=== PATIENT | female | born 1955 | race Caucasian/White ===

== ENCOUNTER → 2017-11-07 06:33 | Outpatient (CLI) | payer OTHER, SELFPAY ==
[2017-11-07 08:21] LABS: Absolute Lymphocyte Count 1.36 X10^3/ul (0.83-4.51); Absolute Neutrophil Count 3.3 X10^3/uL (2.0-7.7); Basophil# 0.04 X10^3/uL; Basophil% 0.8 % (0-1); Eosinophil# 0.17 X10^3/uL; Eosinophils% 3.2 % (0-5); Hematocrit 43.6 % (37-47); Hemoglobin 13.8 g/dl (12.0-15.0); Lymphocyte # 1.36 X10^3/ul (4.0); Lymphocyte % 25.9 % (19-41); Mean Corp Hgb Conc 31.7 g/gl (32-36); Mean Corpuscular Hgb 29.4 pg (27.0-32.0); Mean Corpuscular Volume 92.8 fL (81-99); Mean Platelet Vol. 11.8 fl (6.2-12.0); Monocyte% 7.6 % (0-10); Neutrophil # 3.27 X10^3/uL (2.7-7.7); Neutrophil % 62.3 % (47-70); Platelet Count 183 K/mm3 (150-450); RBC Distribution Width CV 13.3 % (11.6-14.6); RBC Distribution Width SD 45.3 fl (35.1-43.9); White Blood Count 5.3 K/mm3 (4.4-11.0)
[2017-11-07 08:25] LABS: POSITIVE COUNT NO; POSITIVE DIFFERENTIAL NO; POSITIVE MORPHOLOGY NO
[2017-11-07 08:56] LABS: ALB/GLOB Ratio 0.9 RATIO (0.9-2.4); AST(SGOT) 25 U/L (15-37); Alanine Aminotransfer ALT/SGPT 49 U/L (13-56); Albumin, Serum 3.3 g/dL (3.2-5.0); Alkaline Phosphatase 67 U/L (45-117); Anion Gap 10 (5-15); BUN 23 mg/dL (7-18); BUN/Creat Ratio 33.6 RATIO (10-20); Calcium,Total 8.6 mg/dL (8.5-10.1); Chloride 106 mmol/L (98-107); Creatinine, Serum 0.68 mg/dL (0.55-1.02); EST Glomerular Filtration Rate 93 mL/min (>60); Est Glom Filt Rate - Afr Amer 113 mL/min (>60); Globulin 3.5 g/dL (2.2-4.2); Glucose 100 mg/dL (70-110); Potassium 4.1 mmol/L (3.5-5.1); Protein, Total 6.8 g/dL (6.4-8.2); Sodium Level 142 mmol/L (136-145)
[2017-11-07 08:59] LABS: Vitamin D,25 Hydroxy 15.1 ng/mL (19.95-100.01)
== END ==
PROVIDERS: Nurse Practitioner Family; Family Provider Family Medicine; PCP Family Medicine; Visit Provider Internal Medicine Medical Oncology
DX: E55.9 Vitamin D deficiency, unspecified (principal)
CPT/HCPCS: 36415; 80053; 82306; 85025

== ENCOUNTER → 2018-03-23 15:42 | Outpatient (CLI) | payer OTHER, SELFPAY ==
[2018-03-23 16:22] LABS: Absolute Lymphocyte Count 1.15 X10^3/ul (0.83-4.51); Absolute Neutrophil Count 7.5 X10^3/uL (2.0-7.7); Basophil# 0.04 X10^3/uL; Basophil% 0.4 % (0-1); Eosinophil# 0.05 X10^3/uL; Eosinophils% 0.5 % (0-5); Hematocrit 43.8 % (37-47); Hemoglobin 14.3 g/dl (12.0-15.0); Lymphocyte # 1.15 X10^3/ul (4.0); Lymphocyte % 12.4 % (19-41); Mean Corp Hgb Conc 32.6 g/gl (32-36); Mean Corpuscular Hgb 30.3 pg (27.0-32.0); Mean Corpuscular Volume 92.8 fL (81-99); Mean Platelet Vol. 11.8 fl (6.2-12.0); Monocyte# 0.58 X10^3/uL; Monocyte% 6.2 % (0-10); Neutrophil # 7.46 X10^3/uL (2.7-7.7); Neutrophil % 80.2 % (47-70); Platelet Count 225 K/mm3 (150-450); RBC Distribution Width CV 13.9 % (11.6-14.6); RBC Distribution Width SD 46.1 fl (35.1-43.9); Red Blood Count 4.72 M/mm3 (4.2-5.4); White Blood Count 9.3 K/mm3 (4.4-11.0)
[2018-03-23 16:23] LABS: POSITIVE COUNT NO; POSITIVE DIFFERENTIAL NO; POSITIVE MORPHOLOGY NO
[2018-03-27 03:08] LABS: Alternaria alternata <0.10 kU/L (Class 0); Bermuda Grass <0.10 kU/L (Class 0); Bluegrass, Kentucky <0.10 kU/L (Class 0); Cat Hair/Dander, Standard <0.10 kU/L (Class 0); D farinae Mite <0.10 kU/L (Class 0); D pteronyssinus <0.10 kU/L (Class 0); Dog Epithelia <0.10 kU/L (Class 0); Elm, American White <0.10 kU/L (Class 0); Oak, White <0.10 kU/L (Class 0); Plantain, English <0.10 kU/L (Class 0); Ragweed, Short/Common <0.10 kU/L (Class 0)
[2018-03-27 11:18] LABS: Mouse Urine <0.10 kU/L (Class 0)
== END ==
PROVIDERS: Family Provider Family Medicine; PCP Family Medicine; Visit Provider Nurse Practitioner Acute Care
DX: R05 Cough (principal)
CPT/HCPCS: 36415; 85025; 86003

== ENCOUNTER → 2018-04-27 15:15 | Outpatient (CLI) | payer OTHER, SELFPAY ==
--- NOTE | 2018-04-27 15:19 | US_ITS ---
STUDY: ULTRASOUND OF THE FEMALE PELVIS - COMPLETE REASON FOR EXAM: Female, 62 years old. Postmenopausal bleed TECHNIQUE: Transvaginal TECHNICAL QUALITY: Adequate. COMPARISON: None. FINDINGS: The uterus is anteverted and is in a midline position. The uterus measures 7.8 x 4.9 x 4.1 cm. Normal uterine cervix. The endometrium measures 4 mm in thickness, and is hyperechoic. There is no demonstrated endometrial mass. There is no demonstrated myometrial mass. The right ovary is visualized. The right ovary measures 2.4 x 1.5 x 1.4 cm. There is no right ovarian cyst or ovarian mass. There is no visualized right adnexal mass or complex lesion. There is normal arterial and normal venous vascularity. The left ovary is visualized. The left ovary measures 2.5 x 1.7 x 1.6 cm. There is no left ovarian cyst or ovarian mass. There is no visualized left adnexal mass or complex lesion. There is normal arterial and normal venous vascularity. There is no fluid in the cul-de-sac. US/Transvaginal Non- IMPRESSION: Normal female pelvis. Electronically Signed: Darrel Resendez, at 20:34 EDT Tel , Service support ,
== END ==
PROVIDERS: Family Provider Family Medicine; PCP Family Medicine
DX: N95.0 Postmenopausal bleeding (principal)
CPT/HCPCS: 76830

== ENCOUNTER → 2018-05-11 15:24 | Outpatient (CLI) | payer OTHER, SELFPAY ==
[2018-05-11 16:46] LABS: Absolute Neutrophil Count 4.4 X10^3/uL (2.0-7.7); Basophil# 0.02 X10^3/uL; Basophil% 0.3 % (0-1); Eosinophil# 0.19 X10^3/uL; Eosinophils% 2.8 % (0-5); Hematocrit 44.3 % (37-47); Hemoglobin 14.1 g/dl (12.0-15.0); Lymphocyte % 22.2 % (19-41); Mean Corp Hgb Conc 31.8 g/gl (32-36); Mean Corpuscular Hgb 29.7 pg (27.0-32.0); Mean Corpuscular Volume 93.5 fL (81-99); Mean Platelet Vol. 12.1 fl (6.2-12.0); Monocyte# 0.65 X10^3/uL; Monocyte% 9.6 % (0-10); Neutrophil # 4.41 X10^3/uL (2.7-7.7); Neutrophil % 65.1 % (47-70); Platelet Count 185 K/mm3 (150-450); RBC Distribution Width CV 13.5 % (11.6-14.6); RBC Distribution Width SD 46.1 fl (35.1-43.9); Red Blood Count 4.74 M/mm3 (4.2-5.4); White Blood Count 6.8 K/mm3 (4.4-11.0)
[2018-05-11 16:47] LABS: POSITIVE COUNT NO; POSITIVE DIFFERENTIAL NO; POSITIVE MORPHOLOGY NO
[2018-05-11 16:59] LABS: ALB/GLOB Ratio 1.1 RATIO (0.9-2.4); AST(SGOT) 38 U/L (15-37); Alanine Aminotransfer ALT/SGPT 56 U/L (13-56); Albumin, Serum 3.6 g/dL (3.2-5.0); Alkaline Phosphatase 81 U/L (45-117); Anion Gap 8 (5-15); BUN 22 mg/dL (7-18); BUN/Creat Ratio 29.8 RATIO (10-20); Chloride 106 mmol/L (98-107); Creatinine, Serum 0.74 mg/dL (0.55-1.02); EST Glomerular Filtration Rate 85 mL/min (>60); Est Glom Filt Rate - Afr Amer 103 mL/min (>60); Globulin 3.4 g/dL (2.2-4.2); Glucose 109 mg/dL (74-106); Potassium 4.1 mmol/L (3.5-5.1); Sodium Level 144 mmol/L (136-145)
== END ==
PROVIDERS: Family Provider Family Medicine; PCP Family Medicine; Visit Provider Internal Medicine Medical Oncology
DX: D05.12 Intraductal carcinoma in situ of left breast (principal)
CPT/HCPCS: 80053; 85025

== ENCOUNTER → 2018-07-06 15:10 | Outpatient (CLI) | payer OTHER, SELFPAY ==
--- NOTE | 2018-07-06 15:15 | BI_ITS ---
MAMMOGRAPHY - BILATERAL SCREENING REASON FOR EXAM: Female, 62 years old. Routine annual screening examination. PERTINENT HISTORY: Personal history of breast cancer. Status post left lumpectomy with radiation treatment. Grandmother with breast cancer. Aunt with breast cancer. TECHNIQUE: Digital bilateral breast jose (3D mammographic acquisition) in the CC and MLO projections. 2-D mediolateral oblique (MLO) and craniocaudad (CC) views of both breasts were obtained. CAD: Full Field Digital Mammography with Computer Added Detection was performed. COMPARISON: Comparison is made with prior study dated July 03, 2017 and January 15, 2017. FINDINGS: Breast Composition: The breasts are heterogeneously dense, which may obscure small masses. There are no dominant masses or suspicious calcifications. Stable well-defined subcentimeter nodular densities in the retroareolar region of the right breast. Stable benign-appearing bilateral axillary lymph nodes. The patient status post left lumpectomy with resultant architectural distortion. No other significant abnormalities are identified. There has been no significant change since the prior study. BI/SCREENING MAMM (CAD), BILAT IMPRESSION: Stable bilateral screening mammogram. Yearly follow-up mammogram recommended. (A) ASSESSMENT CATEGORY: BIRADS Category 2: Benign. A letter regarding these results will be sent to the patient by the facility within 30 days. Approximately 10% of breast cancers are not detected by mammography. A normal mammogram should not delay biopsy of a clinically suspicious abnormality. [id number] Electronically Signed: Douglas Hauser MD at 8:15 EDT Tel [phone], Service support ,
== END ==
PROVIDERS: Family Provider Family Medicine; PCP Family Medicine; Visit Provider Nurse Practitioner Family
DX: Z12.31 Encounter for screening mammogram for malignant neoplasm of breast (principal)
CPT/HCPCS: 77063; 77067

== ENCOUNTER → 2018-07-21 13:40 | Outpatient (CLI) | payer OTHER, SELFPAY ==
--- NOTE | 2018-07-21 16:42 | PFTCOMP_ITS ---
COMPLETE PULMONARY FUNCTION TEST INTERPRETATION Brief HPI: Patient is a 62 year old female, currently under the care of Dr. Ayala, who presents to [facility] for complete pulmonary function tests secondary to diagnosis of dyspnea. Respiratory therapist reports good effort and reproducible results. Interpretation: Forced expiration spirometry shows no large airways obstructive ventilatory defect with an FEV1 of 112% predicted. There is no significant bronchodilator response by ATS criteria. Spirograms are of good quality and plateau normally. The respiratory flow volume loop shows a normal pattern. Lung volumes by body plethysmography show a normal total lung capacity at 4.55 L, 106% predicted. All other lung volumes are within normal limits. Diffusion capacity by carbon monoxide is decreased at 63% predicted. The airway resistance is normal. Compared to previous pulmonary function tests from 07/01/2017, there has been a significant change in DLCO and lung volumes. Impression: Isolated reduction in diffusion capacity consistent with a pulmonary vascular disease. There has been improvement in DLCO compared to previous testing.
== END ==
PROVIDERS: Family Provider Family Medicine; PCP Family Medicine; Referring Provider Internal Medicine Critical Care Medicine; Visit Provider Internal Medicine Critical Care Medicine
DX: R05 Cough (principal); R06.02 Shortness of breath; R06.2 Wheezing
CPT/HCPCS: 94060; 94726; 94729

== ENCOUNTER → 2018-08-31 15:51 | Outpatient (CLI) | payer OTHER, SELFPAY ==
[2018-08-20 14:46] VITALS: BMI 40.6
--- NOTE | 2018-08-31 15:54 | US_ITS ---
HISTORY: PMBPost-Menopausal BleedingUS - Pelvic, Tvag TECHNIQUE: Transabdominal and transvaginal pelvic ultrasound was performed. COMPARISON: None FINDINGS: The uterus is anteverted and appears normal in overall size measuring approximately 7.6 x 4.1 x 5 cm in longitudinal, AP, and transverse dimensions, respectively. The uterine myometrium shows mildly heterogenous echotexture with suspicion of several small hypoechoic fibroids, the largest measuring 1.7. The endometrium is uniform and measures 0.4 cm in diameter which is normal. The right ovary measures approximately 2.1 x 1.9 x 1.1 cm and the left ovary measures 3.3 x 2 x 1.7 cm. Bilateral ovarian vascular flow. No adnexal mass or free pelvic fluid. US/Pelvic (Non ) IMPRESSION: 1. Fibroid uterus which is normal in overall size. 2. Normal endometrium. 3. No free fluid or acute disease identified. at 0752 Reported and signed by: Edvin Huff MD Electronically Signed: Edvin Huff, at 7:49 EST Tel , Service support ,
--- NOTE | 2018-08-31 16:22 | US_ITS ---
HISTORY: PMBPost-Menopausal BleedingUS - Pelvic, Tvag TECHNIQUE: Transabdominal and transvaginal pelvic ultrasound was performed. COMPARISON: None FINDINGS: The uterus is anteverted and appears normal in overall size measuring approximately 7.6 x 4.1 x 5 cm in longitudinal, AP, and transverse dimensions, respectively. The uterine myometrium shows mildly heterogenous echotexture with suspicion of several small hypoechoic fibroids, the largest measuring 1.7. The endometrium is uniform and measures 0.4 cm in diameter which is normal. The right ovary measures approximately 2.1 x 1.9 x 1.1 cm and the left ovary measures 3.3 x 2 x 1.7 cm. Bilateral ovarian vascular flow. No adnexal mass or free pelvic fluid. US/Transvaginal Non- IMPRESSION: 1. Fibroid uterus which is normal in overall size. 2. Normal endometrium. 3. No free fluid or acute disease identified. at 0752 Reported and signed by: Edvin Huff MD Electronically Signed: Edvin Huff, at 7:49 EST Tel , Service support ,
--- OUTSIDE RECORDS SUMMARY | 2018-10-13 14:27 | XMS RPT_ITS ---
:1955 Author Organization [place] Support Name Relationship Address Phone LUKE GARCIA Unavailable [address] + [place] [address] WAY[place] Unavailable [address] + [place] [address] LUKE GARCIA Unavailable [address] + [place] [address] WAY[place] Unavailable [address] + [place] [address] LUKE GARCIA Unavailable [phone] [place] [address] WAY[place] Unavailable [address] + [place] [address] LUKE GARCIA Unavailable [phone] [place] [address] WAY[place] Unavailable [address] + [place] [address] LUKE GARCIA Unavailable [phone] [place] [address] WAYC[place] Unavailable [address] + [place] [address] LUKE GARCIA Unavailable [phone] [place] [address] WAYC[place] Unavailable [address] + [place] [address] LUKE GARCIA Unavailable [phone] [place] [address] WAYC[place] Unavailable [address] + [place] [address] LUKE GARCIA Unavailable [phone] [place] [address] WAY[place] Unavailable [address] + [place] [address] LUKE GARCIA Unavailable [address] + [place] [address] WAYC[place] Unavailable [address] + [place] [address] LUKE GARCIA Unavailable [address] + [place] [address] WAY[place] Unavailable [address] + [place] [address] LUKE GARCIA Unavailable [address] + [place] [address] WAY[place] Unavailable [address] + [place] [address] LUKE GARCIA Unavailable [address] + [place] [address] WAY[place] Unavailable [address] + [place] [address] Luke Garcia Unavailable [address] + [place] [address] WAY[place] Unavailable [address] + [place] [address] Luke Garcia Unavailable [address] + [place] [address] WAYC[place] Unavailable [address] + [place] [address] LUKE GARCIA Unavailable [address] + [place] [address] WAYC[place] Unavailable [address] + [place] [address] Luke Garcia Unavailable [address] + [place] [address] WAYC[place] Unavailable [address] + [place] [address] Luke Garcia Unavailable [address] + [place] [address] WAYC[place] Unavailable [address] + [place] [address] Luke Garcia Unavailable [address] + [place] [address] WAY[place] Unavailable [address] + [place] [address] LUKE GARCIA Unavailable [address] + [place] [address] WAY[place] Unavailable [address] + [place] [address] LUKE GARCIA Unavailable [address] + [place] [address] WAYCOSHE Unavailable [address] + [place] [address] Care Team Providers Name Role Phone LINDA BOOKER, GINA Attending Unavailable GINA MCKEON MD Primary Care Unavailable Prah, Brando Attending Unavailable Hollis, Mike Primary Care Unavailable Hollis, Mike Referring Unavailable Prah, Brando Attending Unavailable Hollis, Mike Primary Care Unavailable Prah, Brando Referring Unavailable Hollis, Mike Consulting Unavailable Prah, Brando Attending Unavailable Prah, Brando Referring Unavailable Hlolis, Mike Primary Care Unavailable Prah, Brando Consulting [facility] Attending Unavailable Darrel Mclaughlin Attending Unavailable Hollis, Mike Referring Unavailable Hollis, Mike Primary Care Unavailable Claudio Cantor Attending Unavailable Hollis, Mike Referring Unavailable Hollis, Mike Primary Care Unavailable Gail Brannon Attending Unavailable Beverly Emerson Attending Unavailable Hollis, Mike Referring Unavailable Beverly Emerson Attending Unavailable Emerson, Beverly Referring Unavailable Hollis, Mike Primary Care Unavailable Darrel Mclaughlin Attending Unavailable Hollis, Mike Referring Unavailable Hollis, Mike Primary Care Unavailable Beverly Emerson Attending Unavailable Hollis, Mike Referring Unavailable Hollis, Mike Primary Care Unavailable FANTASMA PALACIOS Attending Unavailable FANTASMA PALACIOS Referring Unavailable Hollis, Mike Primary Care Unavailable FANTASMA PALACIOS Consulting Unavailable Ines, Brando Attending Unavailable Sherrieh, Brando Referring Unavailable Hollis, Mike Primary Care Unavailable Johan Kima Attending Unavailable Hollis, Mike Referring Unavailable Hollis, Mike Primary Care Unavailable Prah, Brando Consulting Unavailable Hollis, Mike Primary Care Unavailable Judy Daysi Attending Unavailable Shaheed Ayala D.O. Attending Unavailable Shaheed Ayala D.O. Referring Unavailable Hollis, Mike Primary Care Unavailable Nicko Castellanos Consulting Unavailable Nicko Castellanos Attending Unavailable Hollis, Mike Referring Unavailable Nicko Castellanos Attending Unavailable Ki Beverly Referring Unavailable Darrel Mclaughlin Attending Unavailable Hollis, Mike Referring Unavailable Gina Mckeon Attending Unavailable Hollis, Mike Primary Care Unavailable FANTASMA PALACIOS Consulting Unavailable Gina Mckeon Referring Unavailable PROBLEMS PROBLEMS DATE TYPE CONDITION / CODE ATTENDING STATUS SOURCE 09/16/2018 Admitting Postmenopausal LINDA BOOKER, Active [facility] Diagnosis bleeding / G[facility] N95.0(ICD-10) Repository 08/31/2018 Unknown N95.0 - Gina Mckeon Active [facility] Postmenopausal [facility] bleeding / Hospital N95.0(ICD-10) Repository 07/29/2018 Unknown B35.6 - Tinyvette combs MadalynDarrel juarez Active [facility] / B35.6(ICD-10) [facility] Hospital Repository 07/28/2018 Unknown G47.33 - Obstructive Nicko Castellanos Active [facility] sleep apnea (adult) Community (pediatric) / Hospital G47.33(ICD-10) Repository 07/28/2018 Unknown E66.9 - Obesity, Nicko Castellanos Active [facility] unspecified / Community E66.9(ICD-10) Hospital Repository 07/28/2018 Unknown R06.02 - Shortness Nicko Castellanos Active [place] of breath / Community R06.02(ICD-10) Hospital Repository 05/14/2018 Unknown 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, 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 / Hospital D05.12(ICD-10) Repository 05/14/2018 Unknown Z12.31 - Encounter Judy, Active [facility] for screening [facility] mammogram for Hospital malignant neoplasm Repository of breast / Z12.31(ICD-10) 05/14/2018 Unknown Z86.000 - Personal Judy, Active [facility] history of in-situ [facility] neoplasm of breast / Hospital Z86.000(ICD-10) Repository 05/14/2018 Unknown Z17.0 - Estrogen Judy, Active [place] receptor positive [facility] status [ER+] / Hospital Z17.0(ICD-10) Repository 03/23/2018 Unknown R05 - Cough / Emerson, Active [place] R05(ICD-10) [facility] Repository PROCEDURES PROCEDURES No Procedure Records FoundRESULTS RESULTS FINAL SURGICAL Observed: 09/16/2018 Status: F Source: [facility] PATHOLOGY REPORT 4:04 PM [facility] REPOSITORY . Pathology Reports Accession: Collected Date/Time: Received Date/Time: Pathologist: [id number] 09/16/2018 16:04 EST 09/17/2018 14:40 EST DO RAMILA GUEVARA Final Surgical Pathology Report DIAGNOSIS: ENDOMETRIAL TISSUE -- RARE MINUTE FRAGMENTS OF ATROPHIC APPEARING ENDOMETRIUM AND SQUAMOUS MUCOSA. NO MALIGNANCY. COMMENT: [facility] - # [id number] CLINICAL INFORMATION: POSTMENOPAUSAL BLEEDING SPECIMEN: A EMBX - ENDOMETRIAL TISSUE GROSS DESCRIPTION: Received in formalin are minute fragments of mucoid acosta tissue aggregating to 4 mm. Entirely submitted in one cassette. dictated by Truman Guevara D.O. Dictated by BERNICE BANKS MD MICROSCOPIC DESCRIPTION: Slides reviewed. Electronically Signed by Pathology Report verified by [facility] Electronically signed by RAMILA GUEVARA DO Sign out Date: 09/18/2018 12:53 Performing Lab: [facility], [address] [place] [address] Performed By: #### SPFR #### [place] [address] TRANSVAGINAL Observed: 08/31/2018 Status: F Source: [place] NON- 4:22 PM [facility] REPOSITORY [facility] Imaging Services [address] [place] [address] Transvaginal Non- MR#: [id number] Acct: [id number] Name: AMAYA GARCIA Rep #: [id number] : 1955 F 62 From: Bernice Huff MD PCP: Mike Shafer MD Status: REG CLI Study: Transvaginal Non- Date of Exam: 08/31/18 Exam# [id number] Ordering Dr: Gina Mckeon MD HISTORY: PMBPost-Menopausal BleedingUS - Pelvic, Tvag TECHNIQUE: Transabdominal and transvaginal pelvic ultrasound was performed. COMPARISON: None FINDINGS: The uterus is anteverted and appears normal in overall size measuring approximately 7.6 x 4.1 x 5 cm in longitudinal, AP, and transverse dimensions, respectively. The uterine myometrium shows mildly heterogenous echotexture with suspicion of several small hypoechoic fibroids, the largest measuring 1.7. The endometrium is uniform and measures 0.4 cm in diameter which is normal. The right ovary measures approximately 2.1 x 1.9 x 1.1 cm and the left ovary measures 3.3 x 2 x 1.7 cm. Bilateral ovarian vascular flow. No adnexal mass or free pelvic fluid. US/Transvaginal Non- IMPRESSION: 1. Fibroid uterus which is normal in overall size. 2. Normal endometrium. 3. No free fluid or acute disease identified. at 0752 Reported and signed by: Bernice Huff MD Electronically Signed: Bernice Huff, at 7:49 EST Tel , Service support , CC: Gina Mckeon MD; Mike Shafer MD Commissioner Of Officials: Signed PELVIC (NON ) Observed: 08/31/2018 Status: F Source: [place] 3:54 PM [facility] REPOSITORY [facility] Imaging Services [address] [place] [address] Pelvic (Non ) MR#: [id number] Acct: [id number] Name: AMAYA GARCIA Rep #: [id number] : 1955 F 62 From: Bernice Huff MD PCP: Mike Shafer MD Status: REG CLI Study: Pelvic (Non ) Date of Exam: 08/31/18 Exam# [id number] Ordering Dr: Gina Mckeon MD HISTORY: PMBPost-Menopausal BleedingUS - Pelvic, Tvag TECHNIQUE: Transabdominal and transvaginal pelvic ultrasound was performed. COMPARISON: None FINDINGS: The uterus is anteverted and appears normal in overall size measuring approximately 7.6 x 4.1 x 5 cm in longitudinal, AP, and transverse dimensions, respectively. The uterine myometrium shows mildly heterogenous echotexture with suspicion of several small hypoechoic fibroids, the largest measuring 1.7. The endometrium is uniform and measures 0.4 cm in diameter which is normal. The right ovary measures approximately 2.1 x 1.9 x 1.1 cm and the left ovary measures 3.3 x 2 x 1.7 cm. Bilateral ovarian vascular flow. No adnexal mass or free pelvic fluid. US/Pelvic (Non ) IMPRESSION: 1. Fibroid uterus which is normal in overall size. 2. Normal endometrium. 3. No free fluid or acute disease identified. at 0752 Reported and signed by: Bernice Huff MD Electronically Signed: Bernice Huff, at 7:49 EST Tel , Service support , CC: Gina Mckeon MD; Mike Shafer MD Commissioner Of Officials: Signed URGENT CARE VISIT Observed: 07/29/2018 Status: F Source: [place] REPORT 5:16 PM [facility] RE[facility] [address] [place] [address] [address] [place] [address] OFFICE VISIT Date of Service: 07/29/18 MR#: [id number] Acct: [id number] Name: AMAYA GARCIA Rep #: [id number] : 1955 Provider: Darrel AMIN Age/Sex: 62/F Location: [facility] Status: Signed with Addenda ADDENDUM by Darrel AMIN on 07/29/18 at 1715 Addendum entered and electronically signed by ELOISA Sloan 07/29/18 17:15: Revised diagnosis: Tinea corporis HPI Details: AMAYA GARCIA, is a 62 F who presents to the office today for Assessment AND Plan Problems 1. Tinea cruris B35.6 Plan - ELOISA Sloan Lotrisone cream as prescribed today. Follow-up with EP in 10-14 days should symptoms not improve, sooner should symptoms worsen or any other concerns develop. Patient states acknowledging understanding all the above. This note was generated with [employer] dictation software. It may contain incorrect words, spelling, and punctuation that were not noted in checking the note before signing. Medications New: 07/29/18 1716 <Electronically signed by Darrel AMIN> Date Darrel Mclaughlin cc: * Signed ADDENDUM by Darrel AMIN on 07/29/18 at 1716 Addendum entered and electronically signed by ELOISA Sloan 07/29/18 17:15: Advised diagnosis: Tinea corporis HPI Details: AMAYA GARCIA, is a 62 F who presents to the office today for Assessment AND Plan Problems 1. Tinea cruris B35.6 Plan - ELOISA Sloan Lotrisone cream as prescribed today. Follow-up with EP in 10-14 days should symptoms not improve, sooner should symptoms worsen or any other concerns develop. Patient states acknowledging understanding all the above. This note was generated with [employer]ation software. It may contain incorrect words, spelling, and punctuation that were not noted in checking the note before signing. Medications New: 07/29/18 1715 <Electronically signed by Darrel AMIN> Date Darrel Mclaughlin cc: * Signed Intake Vital Signs07/29/18 Height 5 ft 1 in 07/29/18 Weight: 224 lb 07/29/18 Body Mass Index (BMI) 42.3 07/29/18 Blood Pressure 124/86 H Intake Visit Reasons: RASH ON LEGS Chief Complaint: rash Director Imaging Required: No Accompanied by: self Is patient in pain?: No Allergies No Known Allergies Allergy (Verified 07/29/18 15:04) Medications Celecoxib [Celebrex] 200 mg PO DAILY 01/10/17 [History Confirmed 07/29/18] Trazodone ER [Oleptro Er] 150 mg PO QHS 01/10/17 [History Confirmed 07/29/18] Valacyclovir HCl [Valacyclovir] 500 mg PO DAILY 01/10/17 [History Confirmed 07/29/18] Escitalopram Oxalate [Lexapro] 10 mg PO DAILY 02/25/17 [History Confirmed 07/29/18] rosuvastatin 40 mg tablet 40 mg PO DAILY 12/31/17 [History Confirmed 07/29/18] Tamoxifen [Nolvadex] 20 mg PO DAILY 90 Days #90 tab 03/30/18 [Rx Confirmed 07/29/18] Tamoxifen Citrate 20 mg PO DAILY 90 Days #90 tab 03/31/18 [Rx Confirmed 07/29/18] clotrimazole-betamethasone 1 %-0.05 % topical cream 1 applic TOPICAL BID 28 Days #45 g 07/29/18 [Rx Confirmed 07/29/18] [facility] Medical History IBS (irritable bowel syndrome) (Chronic) DOROTEO (obstructive sleep apnea) (Chronic) Obesity (Chronic) Vitamin D deficiency (Acute) Breast cancer (Resolved) SOB (shortness of breath) (Chronic) Hyperlipidemia (Chronic) Diverticulitis (Chronic) Arthritis (Chronic) Surgical History History of shoulder surgery (Resolved) History of tonsillectomy and adenoidectomy (Resolved) History of tubal ligation (Resolved) History of lumpectomy (Resolved) History of section (Resolved) Family History Mother CVA (cerebral vascular accident) Arthritis Heart disease Father Hypertension Heart disease Diabetes Social History Smoking Status: Former smoker how long ago did patient quit smokin, 1ppd second hand exposure: Yes alcohol intake: current alcohol intake frequency: a few times a month Alcohol type: beer HPI HPI Chief Complaint: rash Details: AMAYA GARCIA, is a 62 F who presents to the office today for rash. Patient notes symptoms began approximately 2 weeks ago, using [id number] Lotrimin cream at the direction of her daughter who is a nurse practitioner. She notes that the Lotrimin cream helped only minimally with rash persisting and spreading. She has been getting to bilateral medial thighs but both sites having serpiginous border and central clearing. She notes it is now spread up to her right anterior thigh as well as left forearm/left hand. She notes a sites are pruritic. She has no complaints of fever, chills, sweats. She notes no other associated symptoms and no other alleviating or aggravating factors. ROS Const Constitutional: No other (ROS negative x10 other than as noted above) Exam Const General: cooperative, healthy appearing, no acute distress, comfortable Orientation: alert, awake, oriented x3 HENMT Head: normal to inspection Neck Neck: normal visual inspection, full ROM Chest Chest palpation AND inspection: normal inspection of the chest Resp Effort AND Inspection: normal respiratory effort, able to speak in complete sentences, symmetric chest movement Cardio Rate: regular rate Pulses: radial pulses present GI Inspection: normal to inspection Skin Lesions: no lesions Rashes: rashes noted (Erythematous raised serpiginous borders bilateral medial thighs), other (Erythematous rash left forearm-hand, right anterior thigh) Neuro General: alert, awake, oriented x3, gait normal Cognition: normal cognition Speech: speech normal Gait: normal gait Motor: muscle tone normal throughout Sensory Exam: no sensory deficits noted Psych Appearance: grossly normal Mental Status: mental status grossly normal Mood: congruent mood Affect: normal affect Speech and Movement: speech and movement normal Attitude: cooperative Thought Process: normal Thought Content: normal Judgment: judgment good Assessment AND Plan Problems 1. Tinea cruris B35.6 Plan Lotrisone cream as prescribed today. Follow-up with EP in 10-14 days should symptoms not improve, sooner should symptoms worsen or any other concerns develop. Patient states acknowledging understanding all the above. This note was generated with [employer]ation software. It may contain incorrect words, spelling, and punctuation that were not noted in checking the note before signing. Medications New: Coding Level of Care Code Off vis,est,level 3 Diagnoses Tinea cruris B35.6 07/29/18 1554 <Electronically signed by Darrel AMIN> Date Darrel AMIN Cosigner Signature: Date (if applicable) CC: PULMONARY VISIT REPORT Observed: 07/28/2018 Status: F Source: [place] 11:36 AM [facility] REPOSITORY [facility] [address] [place] [address] OFFICE VISIT Date of Service: 07/28/18 MR#: [id number] Acct: [id number] Name: AMAYA GARCIA Rep #: [id number] : 1955 Provider: Nicko Castellanos MD Age/Sex: 62/F Location: [facility] Status: Signed Assessment AND Plan Problems 1. DOROTEO (obstructive sleep apnea) G47.33 2. Class 3 severe obesity due to excess calories with serious comorbidity and body mass index (BMI) of 40.0 to 44.9 in adult E66.01; Z68.41 Plan Patient overall has kept her weight relatively consistent. Compliance report shows good control of DOROTEO therapy on current BiPAP settings. No indication for repeat titration at this time. Patient has had some improvement in DLCO, likely secondary to the use of BiPAP with improvement in pulmonary artery pressures. Will hold off on any echocardiogram at this time. Will repeat pulmonary function test prior to next visit. Patient would benefit from weight loss, but has no plan in place at this time. Encourage weight loss. Continued compliance of BiPAP therapy. Repeat pulmonary function test prior to next visit Orders Orders: Plan Detail Follow Up 1 Year ([facility]) HPI 1 Y FU: Chief Complaint: Follow-up test results Details: Patient is a 62-year-old female, currently under the care of Dr. Shafer, who presents for evaluation secondary recent test results. Since last visit, patient denies any ER visits, hospitalizations or prednisone burst. Patient states that she was placed on albuterol therapy short-term secondary to cough, but has not used this months. Patient estimates that her last use was March. Patient has been compliant with BiPAP therapy. Patient estimates that she misses no days over the course of a month. Patient states that she uses a nasal pillow interface and denies any complications such as sinus congestion, epistaxis or sore throat. Patient wakes rested and rarely takes naps during the day. Patient does report some improvement in lower extremity edema that she associates with the use of BiPAP therapy. Patient states that she had some increased lower extremity edema over the summer. Patient is unclear of the etiology, but states it is much improved at this time. Testing personally reviewed with the patient Compliance report (June 2018): Compliant 100% of days for an average of 8 hours 39 minutes on BiPAP 11/7 centimeters of water with a residual AHI of 1.2 and well-controlled leak Complete PFT (07/21/2018): Isolated reduction in diffusion capacity with improvement in DLCO compared to previous (FVC 110%, FEV1 108%, TLC 106%, DLCO 63%) HPI Comments Details: Intake Vital Signs07/28/18 Height 5 ft 1 in 10/23/18 Weight: 101.605 kg Intake Visit Reasons: 1 Y FU Director Imaging Required: No Accompanied by: Self Is patient in pain?: No Allergies No Known Allergies Allergy (Verified 07/28/18 06:56) Medications Celecoxib [Celebrex] 200 mg PO DAILY 01/10/17 [History Confirmed 07/28/18] Trazodone ER [Oleptro Er] 150 mg PO QHS 01/10/17 [History Confirmed 07/28/18] Valacyclovir HCl [Valacyclovir] 500 mg PO DAILY 01/10/17 [History Confirmed 07/28/18] Escitalopram Oxalate [Lexapro] 10 mg PO DAILY 02/25/17 [History Confirmed 07/28/18] rosuvastatin 40 mg tablet 40 mg PO DAILY 12/31/17 [History Confirmed 07/28/18] Tamoxifen [Nolvadex] 20 mg PO DAILY 90 Days #90 tab 03/30/18 [Rx Confirmed 07/28/18] Tamoxifen Citrate 20 mg PO DAILY 90 Days #90 tab 03/31/18 [Rx Confirmed 07/28/18] [facility] Medical History IBS (irritable bowel syndrome) (Chronic) DOROTEO (obstructive sleep apnea) (Chronic) Obesity (Chronic) Vitamin D deficiency (Acute) Breast cancer (Resolved) SOB (shortness of breath) (Chronic) Hyperlipidemia (Chronic) Diverticulitis (Chronic) Arthritis (Chronic) Surgical History History of shoulder surgery (Resolved) History of tonsillectomy and adenoidectomy (Resolved) History of tubal ligation (Resolved) History of lumpectomy (Resolved) History of section (Resolved) Family History Mother CVA (cerebral vascular accident) Arthritis Heart disease Father Hypertension Heart disease Diabetes Social History Smoking Status: Former smoker how long ago did patient quit smokin, 1ppd second hand exposure: Yes alcohol intake: current alcohol intake frequency: a few times a month Alcohol type: beer Review of Systems Const CONSTITUTIONAL: Negative anorexia, body ache, chills, daytime sleepiness, fever(s), night sweats, oral thrush, stops breathing during sleep, weight loss, sleeping in chair, fatigue, weight loss, weight gain, frequent colds, seasonal allergies, other, headache(s) or orthopnea EETM Ear Nose Throat Mouth: Positive hearing normal; negative hoarseness, dry mouth in morning, change in vision, itchy eyes, eye pain, swallowing Difficulty, ear pain, headache(s), mouth pain, nasal congestion, nasal discharge, sinus pain, sinus pressure, sore throat, other, hard of hearing, nose bleed or post nasal drip Cardio Cardiovascular: Negative chest pain, chest pain at rest, chest pain with activity, irregular heart rhythm, edema, shortness of breath when lying down, palpitations, other or murmur Resp Respiratory: Positive as per HPI; negative shortness of breath, pain with cough, wheezing, chest congestion, cough, chest tightness, pain on inspiration, inhalers, increase use of rescue inhalers, snoring, apnea or other Gastro Gastrointestional: Negative bloody stools, change in appetite, difficulty swallowing, reflux, hematemesis, melena stool, loose stool, constipation or other Genitourinary: Positive nocturia; negative blood in urine, pain with urination or other Musc Musculoskeletal: Negative body pain, back pain, neck pain or other Skin/Breast Skin/Breast: Negative dry skin, itching, unusual bruising, breast lump, other or rash Neuro Neurological: Negative restless legs, confusion, weakness or other Psych Psychocological: Negative abnormal sleep pattern, anxiety, thoughts of hurting self/others, hopelessness or other Lymph Lymphatic: Negative easy bleeding, easy bruising, other or swollen lymph nodes Exam Const Constitutional: Positive conversant, cooperative, in no acute respiratory distress, healthy appearing, well developed, well nourished, good hygiene and obese; negative smells of smoke, appears older than stated age or wearing supplemental oxygen Head Head: Positive normocephalic and atraumatic; negative cyanosis of lips/distal nose, frontal sinus tenderness or maxillary sinus tenderness Eyes Eye: Positive clear conjunctiva; negative nystagmus, scleral abnormality or cataract present Ears Ear: Positive hearing normal and external ears normal; negative hard of hearing Nose Nose: Positive external nose normal, septum normal and no nasal discharge; negative epistaxis or nasal polyp Mouth Mouth: Positive oral mucosae normal, no lesions and good dentition; negative post nasal drip, malodorous breath or oral thrush present Mallampati Score: II: Mallampati Score Neck Neck: Positive normal visual inspection, full ROM and trachea midline; negative lymphadenopathy or JVD Chest Wall Chest: Positive normal inspection of the chest and symmetric chest movement; negative crepitus or tenderness Resp lung sounds: Positive clear to auscultation, good air exchange, normal expiratory time and normal respiratory effort; negative wheezes, rhonchi, rales, use of accessory muscles, wheeze present on forced exhalation or dullness to percussion Cardio Cardiac: Positive regular rate, regular rhythm, S1 normal and S2 normal; negative murmur, rub or gallop GI GI: Positive normal to inspection, normal bowel sounds and obese; negative distended, ascites or epigastric tenderness Genitourinary: Positive deferred Musc Musculoskeletal: Positive steady gait; negative using an assistive device for ambulation, kyphosis or scoliosis Skin Pulmonary Skin Exam: Positive intact; negative rash, lesion, ulcers, erythema or dermal atrophy Pulses Pulse: Yes radial pulses present Extremities Extremities: Yes capillary refill normal, No clubbing, No cyanosis, Yes edema (1+ lower extremity) Neuro Neurologic: Yes conversant, Yes no focal neuro deficits, Yes normal concentration, Yes cooperative, Yes normal cognition, Yes normal coordination, Yes understands questions Lymph Lymphatic: No lymphadenopathy Psych Appearance: Positive grossly normal Mental Status: Positive mental status grossly normal Mood: Positive congruent mood Affect: Positive normal affect Coding Level of Care Code Off vis,est,level 3 Diagnoses DOROTEO (obstructive sleep apnea) G47.33 Class 3 severe obesity due to excess calories with serious comorbidity and body mass index (BMI) of 40.0 to 44.9 in adult E66.01; Z68.41 Obesity type: due to excess calories Obesity classification: adult class 3 (BMI >= 40) Serious obesity comorbidity presence: with serious comorbidity Body mass index: BMI 40.0-44.9 07/28/18 1136 <Electronically signed by Nicko Castellanos MD> Date Nicko Castellanos MD Cosigner Signature: Date (if applicable) CC: Mike Shafer MD PULMONARY FUNCTION Observed: 07/21/2018 Status: F Source: [place] [facility] COMP 4:42 PM [facility] Pulmonary Services/Neurology [address] [place] [address] MR#: [id number] Acct: [id number] Name: AMAYA GARCIA Rep #: [id number] : 1955 62 From: Nicko Castellanos MD Referring Dr: Shaheed Ayala D.O. Status: REG CLI Ordering Dr: Date: Location: [facility] Sex: F C COMPLETE PULMONARY FUNCTION TEST INTERPRETATION Brief HPI: Patient is a 62 year old female, currently under the care of Dr. Ayala, who presents to [facility] for complete pulmonary function tests secondary to diagnosis of dyspnea. Respiratory therapist reports good effort and reproducible results. Interpretation: Forced expiration spirometry shows no large airways obstructive ventilatory defect with an FEV1 of 112% predicted. There is no significant bronchodilator response by ATS criteria. Spirograms are of good quality and plateau normally. The respiratory flow volume loop shows a normal pattern. Lung volumes by body plethysmography show a normal total lung capacity at 4.55 L, 106% predicted. All other lung volumes are within normal limits. Diffusion capacity by carbon monoxide is decreased at 63% predicted. The airway resistance is normal. Compared to previous pulmonary function tests from 07/01/2017, there has been a significant change in DLCO and lung volumes. Impression: Isolated reduction in diffusion capacity consistent with a pulmonary vascular disease. There has been improvement in DLCO compared to previous testing. 07/21/18 1642 <Electronically signed by Nicko Castellanos MD> Date Nicko Castellanos MD CC: Nicko Castellanos MD; Shaheed Ayala D.O.; Mike Shafer MD Date Dictated: 07/21/181638 Date Transcribed: 07/21/181638 Commissioner Of Officials: [place] Signed URGENT CARE VISIT Observed: 07/08/2018 Status: F Source: [place] [facility] 12:02 PM [facility] REPOSITORY [address] [place] [address] OFFICE VISIT Date of Service: 12/31/17 MR#: [id number] Acct: [id number] Name: AMAYA GARCIA Rep #: [id number] : 1955 Provider: Darrel AMIN Age/Sex: 62/F Location: [facility] Status: Signed Intake Vital Signs12/31/17 Height 5 ft 1 in Intake Visit Reasons: COUGH, HEAD CONGESTION Chief Complaint: sinus pressure and left ear pressure Is patient in pain?: No Allergies No Known Allergies Allergy (Verified 12/31/17 12:07) Medications Celecoxib [Celebrex] 200 mg PO DAILY 01/10/17 [History Confirmed 12/31/17] Trazodone ER [Oleptro Er] 150 mg PO QHS 01/10/17 [History Confirmed 12/31/17] Valacyclovir HCl [Valacyclovir] 500 mg PO DAILY 01/10/17 [History Confirmed 12/31/17] Escitalopram Oxalate [Lexapro] 10 mg PO DAILY 02/25/17 [History Confirmed 12/31/17] Tamoxifen [Nolvadex] 20 mg PO DAILY 05/06/17 [History Confirmed 12/31/17] rosuvastatin 40 mg tablet 40 mg PO DAILY 12/31/17 [History Confirmed 12/31/17] PFSH Medical History Arthritis (Acute) Breast cancer (Acute) Diverticulitis (Acute) Hyperlipidemia (Acute) SOB (shortness of breath) (Acute) Surgical History History of section (Acute) History of lumpectomy (Acute) History of shoulder surgery (Acute) History of tonsillectomy and adenoidectomy (Acute) History of tubal ligation (Acute) Family History Mother CVA (cerebral vascular accident) Arthritis Heart disease Father Hypertension Heart disease Diabetes Social History Smoking Status: Former smoker HPI [facility] Chief Complaint: sinus pressure and left ear pressure Details: AMAYA GARCIA, is a 62 F who presents to the office today for the above chief complaint stating she had a cold for a week then 2 days ago awoke with her left eye matted together. That cleared, then she noted left ear pressure/pain. She denies any fever, chills or body aches. Occasional cough. She has been getting temporary relief with Dayquil and Nyquil. She has h/o breast cancer and is on Tamoxifen. ROS Const Constitutional: No body ache, chills, fatigue, fever(s), night sweats, change in appetite, weakness, frequent falls, headache(s) or excessive sweating Eyes Eyes: Positive for other (Left eye matted together friday morning. ); no visual disturbances, light sensitivity, eye pain or change in vision ENT ENT: Positive for nasal discharge (minimal.) and ear pain; no ear discharge (Pressure/mild), hearing loss, dizziness/vertigo, difficulty swallowing, sore throat, neck pain or headache(s) Resp Respiratory: No cough, chest congestion, hemoptysis, shortness of breath or wheezing Cardio Cardiology: No shortness of breath, irregular heart rhythm, lightheadedness, chest pain at rest, chest pain with exertion, generalized swelling, orthopnea, palpitations or excessive sweating Gastro GI: No difficulty swallowing, abdominal pain, bloating, change in bowel habits, diarrhea, blood in stool, Black,tarry stools, nausea/dyspepsia or vomiting Genitourinary-Female: No burning urination, urinary frequency, urinary urgency, blood in urine or Vaginal Itching Musc Musculoskeletal: No joint pain, back pain, numbness, tingling or neck pain Skin Skin: Positive for other (History of breast cancer on Tamoxifen); no lesions, itching or rash Breast Breast: Positive for other (History of breast cancer on Tamoxifen) Neuro Neurology: No visual disturbances, numbness, tingling, abnormal speech, confusion, unsteady gait/balance, dizziness, weakness, frequent falls, loss of vision, headache(s) or memory loss Psych Psychiatric: No change in appetite, No confusion, No memory loss, No anxiety, No depression, No panic attacks, No hallucinations, No Thoughts of harming yourself/Others Endo Endocrine: No fatigue, cold intolerance, excessive sweating, flushing, heat intolerance or increased thirst/drinking Aller/Imm Allergy/Immunologic: No wheezing, itchy eyes, food intolerance, seasonal allergy symptoms or hives Donald/Lymp Hematologic/Lymphatic: No easy bruising Exam Const General: cooperative, no acute distress, healthy appearing Nutritional Appearance: well nourished Orientation: alert, oriented x3 HENMT Head: normal to inspection, normocephalic Ears: hearing grossly normal bilaterally, external ears normal, TM normal on the right, left TM abnormal, no periauricular adenopathy, EAC's normal, TM abnormal (Left TM and proximal canal markedly erythematous and with some bulging TM) bulging, dull and erythematous Nose: mucous membranes and turbinates abnormal, no nasal discharge, mucous membranes and turbinates abnormal boggy Face and sinus: normal facial exam, sinuses nontender Mouth: oral mucosae normal, oropharynx normal, tongue normal Teeth and gingiva: dentition normal, gingiva normal Throat: posterior oropharynx normal Eyes General: appearance normal, both eyes and all related structures Visual Horton: normal visual horton by confrontation Eyelids: eyelids normal Conjunctivae: conjunctivae normal Sclera: sclerae normal (the erythema and matting is totally cleared. ) Pupils: PERRL, normal by confrontation, accommodation normal EOM: EOM intact bilaterally Direct ophthalmoscopy: normal light reflex, no papilledema, no photophobia, fundi normal bilaterally Neck Neck: normal visual inspection, full ROM, no meningeal signs, trachea midline, supple, no lymphadenopathy Neck mass: No Thyroid: thyroid normal Carotids: no bruits Lymphatic: no lymphadenopathy noted Chest Chest palpation AND inspection: normal inspection of the chest Resp Effort AND Inspection: normal respiratory effort, able to speak in complete sentences, symmetric chest movement, no audible wheezes, no cough, not labored, no respiratory distress Auscultation: Bilateral: Clear to Auscultation Cardio Rate: regular rate Rhythm: regular rhythm Heart Sounds: S1 normal, S2 normal GI Inspection: normal to inspection Auscultation: normal bowel sounds Palpation: soft, no hepatosplenomegaly, no pulsatile masses Skin General: no rashes or lesions noted Neuro General: alert, oriented x3, moves all extremities Speech: speech normal Extrem General: normal to inspection Psych Appearance: grossly normal, well kempt Mental Status: mental status grossly normal Affect: normal affect Thought Process: normal Thought Content: normal Judgment: judgment good Assessment AND Plan Problems 1. Sinusitis, bacterial J32.9; B96.89 2. Left otitis media H66.92 Plan Augmentin 875 mg Bid for 10 days Robitussin DM Coding Level of Care Code Off vis,new,level 3 Diagnoses Sinusitis, bacterial J32.9; B96.89 Left otitis media H66.92 07/08/18 1202 <Electronically signed by Darrel AMIN> Date Darrel AMIN 12/31/17 1239<Electronically signed by Aislinn AMIN> Cosigner Signature: Date (if applicable) Aislinn Stroud CC: SCREENING MAMM (CAD), Observed: 07/06/2018 Status: F Source: [place] BIL 3:15 PM [facility] REPOSITORY [facility] Imaging Services [address] [place] [id number] SCREENING MAMM (CAD), BILAT MR#: [id number] Acct: [id number] Name: AMAYA GARCIA Rep #: [id number] : 1955 F 62 From: Douglas Hauser MD PCP: Mike Shafer MD Status: REG [facility] Study: SCREENING MAMM (CAD), BILAT Date of Exam: 07/06/18 Exam# [id number] Ordering Dr: Daysi Kim GLAZE GRINDER-Autumn MAMMOGRAPHY - BILATERAL SCREENING REASON FOR EXAM: Female, 62 years old. Routine annual screening examination. PERTINENT HISTORY: Personal history of breast cancer. Status post left lumpectomy with radiation treatment. Grandmother with breast cancer. Aunt with breast cancer. TECHNIQUE: Digital bilateral breast jose (3D mammographic acquisition) in the CC and MLO projections. 2-D mediolateral oblique (MLO) and craniocaudad (CC) views of both breasts were obtained. CAD: Full Field Digital Mammography with Computer Added Detection was performed. COMPARISON: Comparison is made with prior study dated July 03, 2017 and January 15, 2017. FINDINGS: Breast Composition: The breasts are heterogeneously dense, which may obscure small masses. There are no dominant masses or suspicious calcifications. Stable well-defined subcentimeter nodular densities in the retroareolar region of the right breast. Stable benign-appearing bilateral axillary lymph nodes. The patient status post left lumpectomy with resultant architectural distortion. No other significant abnormalities are identified. There has been no significant change since the prior study. BI/SCREENING MAMM (CAD), BILAT IMPRESSION: Stable bilateral screening mammogram. Yearly follow-up mammogram recommended. (A) ASSESSMENT CATEGORY: BIRADS Category 2: Benign. A letter regarding these results will be sent to the patient by the facility within 30 days. Approximately 10% of breast cancers are not detected by mammography. A normal mammogram should not delay biopsy of a clinically suspicious abnormality. [id number] Electronically Signed: Douglas Hauser MD at 8:15 EDT Tel [phone], Service support , CC: Mike Shafer MD; Daysi Kim NP Commissioner Of Officials: Signed ONCOLOGY VISIT REPORT Observed: 05/14/2018 Status: F Source: [place] 4:26 PM [facility] REPOSITORY [facility] [address] [place] [address] OFFICE VISIT Date of Service: 05/14/18 1516 MR#: [id number] Acct: [id number] Name: AMAYA GARCIA Rep #: [id number] : 1955 From: Daysi Kim NP-C Age/Sex: 62/F Location: [facility] Status: Signed Subjective - Date of Service Date of Service:: 05/14/18 - Chief Complaint Follow up- DCIS - History of Present Illness 62-year-old woman was 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 She had left stereotactic biopsy on December 25, 2016 which showed DCIS, ER/IA positive. She had left breast lumpectomy and sentinel node biopsy on January 15, 2017 which showed DCIS with no wilton involvement. She received radiation therapy to the left breast from 02/19/2017 to 04/14/2017, was seen on April 15, 2017 and started on tamoxifen for chemoprevention. - Interval History The patient is presenting to clinic for 6 month follow up. Concerns today include 1 episode of vaginal bleeding approx 1 month ago. States incidence coincidended with vaginal yeast infection which required intervention. Nonetheless, she was evaluated by her ham stripper, Dr. Mckeon and underwent a vaginal US which was normal per patient self report. Next pelvic exam due in July. Otherwise, report good tolerance and good adherence to tamoxifen. Occasional mild hot flashes, denies weight loss, CP, SOB, swelling/pain of her extremities and numbness/tingling. Performing BSE monthly and denies changes. - Past Medical/Social History Past Medical History Past Medical History: Arthritis,Diverticulitis,Hyperlipidemia Cancer: Breast cancer Past Surgical History Surgical: section,Lumpectomy,Tonsillectomy,Tubal ligation Other Surgical History: Adenoldectomy BILATERAL SHOULDER Family History Paternal Past Medical History: Diabetes mellitus,Heart disease,Hypertension Maternal Past Medical History: Allergies,Arthritis,Heart disease,Stroke Social History Social History: No changes Smoking Status Former smoker Review of Systems Constitutional:: Denies: Fever, Sweats, Weight loss, Appetite change, Chills Cardiovascular:: Denies: Chest pain, Palpitations, Dyspnea on exertion, Orthopnea, PND, Shortness of breath Respiratory: Denies: Cough, Hemoptysis, Shortness of Breath, Wheezing Gastrointestinal:: Denies: Abdominal pain, Nausea, Vomiting, Diarrhea, Constipation, Hematochezia Genitourinary: Reports: Abnormal vaginal bleeding - see HPI. Denies: Dysuria, Hematuria, Flank pain Musculoskeletal:: Denies: Back pain, Myalgia, Arthralgia Skin: Denies: Rash, Skin Changes, Wounds Neurological:: Denies: Headache, Dizziness, Numbness, Tingling, Visual changes, Tinnitus, Hearing loss Psychiatric: Denies: Anxiety, Depression, Homicidal Ideations, Suicidal Ideations Vital Signs Height 5 ft 1 in Weight: 215 lb 3.2 oz Weight in Pounds 215.2 lbs Pulse Ox 94 - Physical Exam General: Alert, Oriented x3, No apparent distress HEENT: Atraumatic, PERRLA, EOMI, Normocephalic Oropharynx:: Negative for: Dry mucosa, Ulcerated lesions Neck:: Supple, Trachea midline. Negative for: JVD, bilateral Cardiac:: Regular rate, Regular rhythm, Normal S1, Normal S2. Negative for: Murmur Lungs: Clear to auscultation, Excusion symmetrical. Negative for: Rhonchi, Wheezes Abdomen:: Bowel sounds x 4, Soft, Non-tender, Non-distended. Negative for: Hepatosplenomegaly Extremities:: Negative for: Cyanosis, Edema Neurological: Neuro grossly intact Skin:: Negative for: Lesions, Rash, Petechiae, Ecchymosis Psychiatric:: Appropriate affect, Euthymic Lymphatics:: Negative for: Cervical lymphadenopathy, Supraclavicular lymphadenopathy, Axillary lymphadenopathy Breast:: - - Right breast without palpable masses skin abnormality such as dimpling nipple discharge or retraction. Left breast shows well-healed scar at the 4 o'clock position otherwise no palpable masses skin abnormality such as dimpling nipple discharge or retraction. No axillary lymphadenopathy bilat Assessment and Plan Left breast DCIS status post lumpectomy and radiation therapy- Patient is now on tamoxifen for chemoprevention. Good tolerance as well as good compliance with tamoxifen with the exception of occasional hot flashes and concern for weight gain. Patient provided written educational information about benefits of exercise and dietary modifications. MAST MAKER exam up-to-date, due again July 2018. Underwent vaginal US on 04/27/18 which did not show any endometrial masses or increased thickness. Vaginal bleeding occurred in the context of fungal yeast infection. CBC and CMP reviewed grossly within normal limits. These results were shared with the patient. Orders placed for annual screening mammogram to be complete in June. Ms. Garcia should continue monthly breast self exams and probably report any changes. Otherwise she may return to clinic in 6 months will repeat CBC CMP at that time. Daysi Kim, MSN, SHANK STITCHER-C, AOCNP Medications: Prescriptions This Visit Medication Instructions Recorded Tamoxifen [Nolvadex] 20 mg PO DAILY 90 Days #90 tab 03/30/18 Tamoxifen Citrate 20 mg PO DAILY 90 Days #90 tab 03/31/18 Primary Care Provider: Mike Shafer MD Referring Provider: - Problem List (1) History of ductal carcinoma in situ (DCIS) of breast Status: Chronic (2) Vaginal bleeding Status: Acute 05/14/18 9116 <Electronically signed by Daysi Judy GLAZE GRINDER-C> Date Daysi Judy GLAZE GRINDER-C Cosigner Signature: Date (if applicable) CC: CBC W/DIFF, AUTOMATED Collected: 05/11/2018 Status: F Source: [place] 3:26 PM [facility] REPOSITORY Order Comment: Reason for Laboratory Test . TYPE CODE TESTS RESULT OUT OF RANGE REFERENCE UNITS LAB L100.1000 4.4-11.0 K/mm3 Normal WBC 6.8 LAB L100.1200 4.2-5.4 M/mm3 Normal RBC 4.74 LAB L100.1300 12.0-15.0 g/dl Normal HGB 14.1 LAB L100.1400 37-47 % Normal HCT 44.3 LAB L100.1500 81-99 fL Normal MCV 93.5 LAB L100.1600 27.0-32.0 pg Normal MCH 29.7 LAB L100.1700 32-36 g/gl Low MCHC 31.8 LAB L100.1810 11.6-14.6 % Normal RDW CV 13.5 LAB L100.1820 35.1-43.9 fl High RDW SD 46.1 LAB L100.1900 150-450 K/mm3 Normal PLT 185 LAB L100.2000 6.2-12.0 fl High MPV 12.1 LAB L100.2100 47-70 % Normal NEUT% 65.1 LAB L100.2200 19-41 % Normal LY% 22.2 LAB L100.2300 0-10 % Normal MONO% 9.6 LAB L100.2400 0-5 % Normal EO% 2.8 LAB L100.2500 0-1 % Normal BASO% 0.3 LAB L100.2550 0.0-0.9 % Normal IM GRAN % 0.000 Result Comment: IG% - Immature Granulocytes (promyelocytes, myelocytes and metamyelocytes) > 1% indicates that a LEFT SHIFT is Present. LAB L100.2620 2.0-7.7 X10 3/uL Normal Absolute Neut 4.4 LAB L100.2720 0.83-4.51 X10 3/ul Normal Absolute Lymph 1.50 Performed By: #### L100.0100, L500.4050 #### [facility] [address] [place], [address] COMPREHENSIVE METABOLIC Collected: 05/11/2018 Status: F Source: [place] 3:26 PM [facility] REPOSITORY Order Comment: Reason for Laboratory Test . TYPE CODE TESTS RESULT OUT OF RANGE REFERENCE UNITS LAB L501.0100 74-106 mg/dL High GLU 109 Result Comment: Fasting Glucose result from 100 to 125 mg/dL suggests IMPAIRED HOMEOSTASIS per A.D.A. criteria. Please note revised GLUCOSE reference range effective 2017. LAB L501.1000 7-18 mg/dL High BUN 22 LAB L501.1100 0.55-1.02 mg/dL Normal CREAT,SERUM 0.74 Result Comment: The validity of the calculated GFR AND GFRAA in patients over 70 years has not been determined. Clinical correlation is essential. LAB L501.1110 >60 mL/min Normal EST GFR 85 Result Comment: Non- GFR Calc LAB L501.1115 >60 mL/min Normal EST GFR - AA 103 Result Comment: GFR Calc LAB L501.1300 10-20 RATIO High BUN/CRE 29.8 LAB L501.1500 6.4-8.2 g/dL T Normal PROT 7.0 LAB L501.1800 3.2-5.0 g/dL Normal ALB 3.6 LAB L501.1950 2.2-4.2 g/dL Normal GLOB 3.4 LAB L501.2000 0.9-2.4 RATIO Normal A/G 1.1 LAB L501.2200 8.5-10.1 mg/dL CA Normal 9.0 LAB L501.4100 15-37 U/L High AST 38 LAB L501.4305 45-117 U/L Normal ALK P 81 LAB L501.4405 13-56 U/L Normal ALT 56 LAB L501.4600 0.20-1.00 mg/dL T Normal BILI 0.20 LAB L501.5300 136-145 mmol/L NA Normal 144 LAB L501.5600 3.5-5.1 mmol/L K Normal 4.1 LAB L501.5900 98-107 mmol/L CL Normal 106 LAB L501.6100 21.0-32.0 mmol/L Normal CO2 30.0 LAB L501.6200 5-15 Normal GAP 8 Performed By: #### L100.0100, L500.4050 #### [facility] [address] [place], [address] TRANSVAGINAL Observed: 04/27/2018 Status: F Source: [place] NON- 3:20 PM [facility] REPOSITORY [facility] Imaging Services [address] [facility] [address] [place] [address] Transvaginal Non- MR#: [id number] Acct: [id number] Name: AMAYA GARCIA Rep #: [id number] : 1955 F 62 From: Darrel Resendez MD PCP: Mike Shafer MD Status: REG CLI Study: Transvaginal Non- Date of Exam: 04/27/18 Exam# [id number] Ordering Dr: AMBER JACKSON STUDY: ULTRASOUND OF THE FEMALE PELVIS - COMPLETE REASON FOR EXAM: Female, 62 years old. Postmenopausal bleed TECHNIQUE: Transvaginal TECHNICAL QUALITY: Adequate. COMPARISON: None. FINDINGS: The uterus is anteverted and is in a midline position. The uterus measures 7.8 x 4.9 x 4.1 cm. Normal uterine cervix. The endometrium measures 4 mm in thickness, and is hyperechoic. There is no demonstrated endometrial mass. There is no demonstrated myometrial mass. The right ovary is visualized. The right ovary measures 2.4 x 1.5 x 1.4 cm. There is no right ovarian cyst or ovarian mass. There is no visualized right adnexal mass or complex lesion. There is normal arterial and normal venous vascularity. The left ovary is visualized. The left ovary measures 2.5 x 1.7 x 1.6 cm. There is no left ovarian cyst or ovarian mass. There is no visualized left adnexal mass or complex lesion. There is normal arterial and normal venous vascularity. There is no fluid in the cul-de-sac. US/Transvaginal Non- IMPRESSION: Normal female pelvis. Electronically Signed: Darrel Resendez, at 20:34 EDT Tel , Service support , CC: AMBER JACKSON; Mike Shafer MD Commissioner Of Officials: Signed PULMONARY VISIT REPORT Observed: 04/03/2018 Status: F Source: [place] 3:42 PM [facility] REPOSITORY [facility] [address] [place] [address] [place] [address] OFFICE VISIT Date of Service: 04/03/18 MR#: [id number] Acct: [id number] Name: AMAYA GARCIA Rep #: [id number] : 1955 Provider: Beverly Emerson Age/Sex: 62/F Location: [facility] Status: Signed Assessment AND Plan 1. Cough R05 Plan Improved, but continues to experience symptoms of cough and wheezing. Plan to start on Breo 1 puff daily for the next 2 weeks. Prescription has not been provided as of yet, she was given a sample in the office today. She has been instructed to call the office and give us an update on how she feels on the medication. She has been instructed to complete 2 weeks on the Breo and then spend a few days off of the medication and evaluate her response. She is agreeable with this plan. She was personally instructed on how to use the inhaler and the first dose was provided in the office today. Keep previously scheduled routine follow-up, call the office with any acute needs in the meantime. Orders Orders: HPI 2 W FU: Chief Complaint: Wheeze HPI Comments Details: Patient presents the office today after recently being treated for a respiratory infection. She completed her prednisone burst. She has reported that most of her symptoms have completely resolved but she continues to experience occasional wheezing and persistent dry cough. The cough has reduced in frequency. She is using her pro-air rescue inhaler 1-2 times daily. She does report that using the Pro Air rescue inhaler relieves her shortness of breath. She denies any chest pain or palpitations. She reports that since the use of the prednisone her lower extremity edema has improved. She denies any fever, chills or body aches. She denies any sputum production or hemoptysis. See complete review of systems. Test results reviewed: Laboratory Tests Eos % (Auto) 0.5 Intake Vital Signs04/03/18 Height 5 ft 1 in 04/03/18 Weight: 221 lb Intake Visit Reasons: 2 W FU Director Imaging Required: No Accompanied by: Self Is patient in pain?: No Allergies No Known Allergies Allergy (Verified 04/03/18 14:48) Medications Celecoxib [Celebrex] 200 mg PO DAILY 01/10/17 [History Confirmed 04/03/18] Trazodone ER [Oleptro Er] 150 mg PO QHS 01/10/17 [History Confirmed 04/03/18] Valacyclovir HCl [Valacyclovir] 500 mg PO DAILY 01/10/17 [History Confirmed 04/03/18] Escitalopram Oxalate [Lexapro] 10 mg PO DAILY 02/25/17 [History Confirmed 04/03/18] rosuvastatin 40 mg tablet 40 mg PO DAILY 12/31/17 [History Confirmed 04/03/18] albuterol sulfate HFA 90 mcg/actuation aerosol inhaler 2 puff INHALATION Q4H #1 inh 03/20/18 [Rx Confirmed 04/03/18] Tamoxifen [Nolvadex] 20 mg PO DAILY 90 Days #90 tab 03/30/18 [Rx Confirmed 04/03/18] Tamoxifen Citrate 20 mg PO DAILY 90 Days #90 tab 03/31/18 [Rx Confirmed 04/03/18] PFSH Medical History IBS (irritable bowel syndrome) (Chronic) DOROTEO (obstructive sleep apnea) (Chronic) Obesity (Chronic) Vitamin D deficiency (Acute) Breast cancer (Resolved) SOB (shortness of breath) (Chronic) Hyperlipidemia (Chronic) Diverticulitis (Chronic) Arthritis (Chronic) Surgical History History of shoulder surgery (Resolved) History of tonsillectomy and adenoidectomy (Resolved) History of tubal ligation (Resolved) History of lumpectomy (Resolved) History of section (Resolved) Family History Mother CVA (cerebral vascular accident) Arthritis Heart disease Father Hypertension Heart disease Diabetes Social History Smoking Status: Former smoker how long ago did patient quit smokin, 1ppd second hand exposure: Yes alcohol intake: current alcohol intake frequency: a few times a month Alcohol type: beer Review of Systems Const CONSTITUTIONAL: Negative anorexia, body ache, chills, daytime sleepiness, fever(s), night sweats, oral thrush, stops breathing during sleep, weight loss, sleeping in chair, fatigue, weight loss, weight gain, frequent colds, seasonal allergies, other, headache(s) or orthopnea EETM Ear Nose Throat Mouth: Positive hearing normal and post nasal drip; negative hard of hearing, hoarseness, dry mouth in morning, change in vision, itchy eyes, eye pain, swallowing Difficulty, ear pain, nose bleed, headache(s), mouth pain, nasal congestion, nasal discharge, sinus pain, sinus pressure, sore throat or other Cardio Cardiovascular: Negative chest pain, chest pain at rest, chest pain with activity, irregular heart rhythm, edema, shortness of breath when lying down, palpitations, murmur or other Resp Respiratory: Positive as per HPI, wheezing, cough cough: Positive non-productive and inhalers; negative shortness of breath, pain with cough, chest congestion, chest tightness, pain on inspiration, increase use of rescue inhalers, snoring, apnea or other Gastro Gastrointestional: Negative bloody stools, change in appetite, difficulty swallowing, reflux, hematemesis, melena stool, loose stool, constipation or other Genitourinary: Negative blood in urine, nocturia, pain with urination or other Musc Musculoskeletal: Negative body pain, back pain, neck pain or other Skin/Breast Skin/Breast: Negative dry skin, itching, rash, unusual bruising, breast lump or other Neuro Neurological: Negative restless legs, confusion, weakness or other Psych Psychocological: Negative abnormal sleep pattern, anxiety, thoughts of hurting self/others, hopelessness or other Lymph Lymphatic: Negative easy bleeding, easy bruising, swollen lymph nodes or other Exam Const Constitutional: Positive conversant, cooperative, in no acute respiratory distress, healthy appearing, well developed, well nourished, good hygiene and obese Head Head: Positive normocephalic and atraumatic; negative cyanosis of lips/distal nose Eyes Eye: Positive clear conjunctiva and nystagmus; negative scleral abnormality Ears Ear: Positive hearing normal and external ears normal; negative hard of hearing Nose Nose: Positive external nose normal and no nasal discharge; negative epistaxis Mouth Mouth: Positive post nasal drip, oral mucosae normal, no lesions, good dentition and crowded posterior oropharynx; negative malodorous breath or oral thrush present Mallampati Score: III: Mallampati Score Neck Neck: Positive normal visual inspection, full ROM, trachea midline and thick neck; negative lymphadenopathy, JVD or tender Chest Wall Chest: Positive normal inspection of the chest and symmetric chest movement; negative increased A/P diameter Resp lung sounds: Positive clear to auscultation, diminished, normal expiratory time and normal respiratory effort; negative wheezes, rhonchi, rales, dullness to percussion or wheeze present on forced exhalation Cardio Cardiac: Positive regular rate, regular rhythm, S1 normal and S2 normal; negative murmur GI GI: Positive normal to inspection, normal bowel sounds and obese; negative distended Genitourinary: Positive deferred Musc Musculoskeletal: Positive steady gait and ROM normal; negative kyphosis or scoliosis Skin Pulmonary Skin Exam: Positive intact; negative rash, lesion, ulcers, erythema, scaly or dermal atrophy Pulses Pulse: Yes pulses normal x4 extremities Extremities Extremities: Yes capillary refill normal, No clubbing, No cyanosis, No edema Neuro Neurologic: Yes conversant, Yes no focal neuro deficits, Yes cooperative, Yes normal cognition, Yes normal concentration, Yes normal coordination, Yes understands questions, No tremor Lymph Lymphatic: No lymphadenopathy, No tenderness, No cervical adenopathy, No axillary adenopathy Psych Appearance: Positive grossly normal, eye contact and well kempt Mental Status: Positive mental status grossly normal Mood: Positive congruent mood Affect: Positive normal affect Office Procedures Inhaler Training Inhaler Training Procedure performed by: Beverly Emerson Inhaler Training: Yes personally trained on inhaler use, sample provided, first dose given in the office, expresses understanding and continue to monitor Coding Level of Care Code Off vis,est,level 3 Diagnoses Cough R05 04/03/18 1541 <Electronically signed by Beverly Emerson GLAZE GRINDERZoeC> Date Beverly STEPHENSC Cosigner Signature: Date (if applicable) CC: Mike Shafer MD CBC W/DIFF, AUTOMATED Collected: 03/23/2018 Status: F Source: [place] 3:45 PM [facility] REPOSITORY TYPE CODE TESTS RESULT OUT OF RANGE REFERENCE UNITS LAB L100.1000 4.4-11.0 K/mm3 Normal WBC 9.3 LAB L100.1200 4.2-5.4 M/mm3 Normal RBC 4.72 LAB L100.1300 12.0-15.0 g/dl Normal HGB 14.3 LAB L100.1400 37-47 % Normal HCT 43.8 LAB L100.1500 81-99 fL Normal MCV 92.8 LAB L100.1600 27.0-32.0 pg Normal MCH 30.3 LAB L100.1700 32-36 g/gl Normal MCHC 32.6 LAB L100.1810 11.6-14.6 % Normal RDW CV 13.9 LAB L100.1820 35.1-43.9 fl High RDW SD 46.1 LAB L100.1900 150-450 K/mm3 Normal PLT 225 LAB L100.2000 6.2-12.0 fl Normal MPV 11.8 LAB L100.2100 47-70 % High NEUT% 80.2 LAB L100.2200 19-41 % Low LY% 12.4 LAB L100.2300 0-10 % Normal MONO% 6.2 LAB L100.2400 0-5 % Normal EO% 0.5 LAB L100.2500 0-1 % Normal BASO% 0.4 LAB L100.2550 0.0-0.9 % Normal IM GRAN % 0.300 Result Comment: IG% - Immature Granulocytes (promyelocytes, myelocytes and metamyelocytes) > 1% indicates that a LEFT SHIFT is Present. LAB L100.2620 2.0-7.7 X10 3/uL Normal Absolute Neut 7.5 LAB L100.2720 0.83-4.51 X10 3/ul Normal Absolute Lymph 1.15 Performed By: #### L100.0100 #### [facility] [address] [place], [address] #### L5500.0300 #### [facility] (refer to report for specific site) refer to report for address and phone number ALLERGEN, MINI-RAST Collected: 03/23/2018 Status: F Source: [place] 3:45 PM [facility] REPOSITORY TYPE CODE TESTS RESULT OUT OF REFERENCE UNITS RANGE LAB L5500.1001 Class 0 kU/L D PTERONYSSINUS Normal <0.10 LAB L5500.1002 Class 0 kU/L D FARINAE MITE Normal <0.10 LAB L5500.2001 Class 0 kU/L CAT HAIR/DANDER Normal <0.10 LAB L5500.2002 Class 0 kU/L DOG EPITHELIA Normal <0.10 LAB L5500.4002 Class 0 kU/L BERMUDA GRASS Normal <0.10 LAB L5500.4008 Class 0 kU/L [place], [place] Normal <0.10 LAB L5500.5006 Class 0 kU/L A. ALTERNATA Normal <0.10 LAB L5500.6007 Class 0 kU/L [place], WHITE Normal <0.10 LAB L5500.6008 Class 0 kU/L [place],AMER WHITE Normal <0.10 LAB L5500.7001 Class 0 kU/L RAG[place] SH/COM Normal <0.10 LAB L5500.7009 Class 0 kU/L PLANTAIN,ENGLSH Normal <0.10 LAB L5500.7150 Class 0 kU/L Mouse Urine Normal <0.10 Result Comment: Performed at: [address] [id number] Pillowcase Folder: Nilo Bishop MD, Phone: [phone] LAB K4542.0829 . Normal RAST COMMENT Comment Result Comment: Levels of Specific IgE Class Description of Class ----- < 0.10 0 Negative 0.10 - 0.31 0/I Equivocal/Low 0.32 - 0.55 I Low 0.56 - 1.40 II Moderate 1.41 - 3.90 III High 3.91 - 19.00 IV Very High 19.01 - 100.00 V Very High >100.00 Very High Performed By: #### L100.0100 #### [facility] [address], [address] #### L5500.0300 #### [facility] (refer to report for specific site) refer to report for address and phone number PULMONARY VISIT REPORT Observed: 03/20/2018 Status: F Source: [place] 3:37 PM [facility] REPOSITORY [facility] [address] [place], [place] [address] OFFICE VISIT Date of Service: 03/20/18 MR#: [id number] Acct: [id number] Name: AMAYA GARCIA Rep #: [id number] : 1955 Provider: Beverly Emerson Age/Sex: 62/F Location: [facility] Status: Signed Assessment AND Plan 1. Wheeze R06.2 Status Acute Plan New. Personally instructed on how to use an HFA rescue inhaler. Given written instructions on when to use the device. Follow-up in 2 weeks to see how she has responded to the medications. Additional testing being done, she is spending more time in her camper recently and reports that she feels she may be allergic to find trees. Will complete a Rast test and a CBC with differential. 2. Cough R05 Status Acute Plan New. This is been ongoing for the past 5 weeks. We will try to control the cough with a prednisone taper. The patient has been instructed on how to use this medication. See additional testing will be completed. Follow-up in 2 weeks. Orders Orders: Plan Detail Other Medications New: albuterol sulfate HFA 90 mcg/actuation (ProAir HFA) administer 2 puffs Inhalation Q4H with spacer HPI Cough: Chief Complaint: Cough HPI Comments Details: This patient presents the office today for an acute visit regarding cough. She is ambulatory and currently on room air. She did originally present to the urgent care with these symptoms and was treated with azithromycin and Tessalon Perles. She reports that her symptoms did not improve whatsoever with these 2 medications. She was then advised to call her primary care provider who added Delsym cough syrup, which she reports did not improve her symptoms either. Currently, she is experiencing a frequent dry cough. The cough worsens throughout the day. She reports that the cough is actually improved when lying flat. It does not interrupt her sleep. She has also experienced occasional wheezing, chest tightness and shortness of breath. She denies any fever or chills. She denies any chest pain or palpitations. She has not been exposed to any sick/ill contacts that she is aware of. She does report that higher to this cough starting (5 weeks ago) she was at her [facility] and was involved by what appeared to be a missed but turned out to be pollen. She has never been diagnosed with asthma, she has never been treated with an inhaler. She has not tried any [id number] medications for her symptoms. She denies any fever, chills or body aches. She denies any postnasal drip, nasal congestion or nasal drainage. She denies any sinus tenderness or congestion. See complete review of systems. Intake Vital Signs03/20/18 Height 5 ft 1 in 03/20/18 Weight: 220 lb Intake Visit Reasons: Cough Director Imaging Required: No Accompanied by: Self Is patient in pain?: No Allergies No Known Allergies Allergy (Verified 03/19/18 15:49) Medications Celecoxib [Celebrex] 200 mg PO DAILY 01/10/17 [History Confirmed 03/20/18] Trazodone ER [Oleptro Er] 150 mg PO QHS 01/10/17 [History Confirmed 03/20/18] Valacyclovir HCl [Valacyclovir] 500 mg PO DAILY 01/10/17 [History Confirmed 03/20/18] Escitalopram Oxalate [Lexapro] 10 mg PO DAILY 02/25/17 [History Confirmed 03/20/18] Tamoxifen [Nolvadex] 20 mg PO DAILY 05/06/17 [History Confirmed 03/20/18] rosuvastatin 40 mg tablet 40 mg PO DAILY 12/31/17 [History Confirmed 03/20/18] albuterol sulfate HFA 90 mcg/actuation aerosol inhaler 2 puff INHALATION Q4H #1 inh 03/20/18 [Rx Confirmed 03/20/18] prednisone 10 mg tablet 10 mg PO QDAY #30 tab 03/20/18 [Rx Confirmed 03/20/18] PFSH Medical History IBS (irritable bowel syndrome) (Chronic) DOROTEO (obstructive sleep apnea) (Chronic) Obesity (Chronic) Vitamin D deficiency (Acute) Breast cancer (Resolved) SOB (shortness of breath) (Chronic) Hyperlipidemia (Chronic) Diverticulitis (Chronic) Arthritis (Chronic) Surgical History History of shoulder surgery (Resolved) History of tonsillectomy and adenoidectomy (Resolved) History of tubal ligation (Resolved) History of lumpectomy (Resolved) History of section (Resolved) Family History Mother CVA (cerebral vascular accident) Arthritis Heart disease Father Hypertension Heart disease Diabetes Social History Smoking Status: Former smoker how long ago did patient quit smokin, 1ppd second hand exposure: Yes alcohol intake: current alcohol intake frequency: a few times a month Alcohol type: beer Review of Systems Const CONSTITUTIONAL: Negative anorexia, body ache, chills, daytime sleepiness, fever(s), night sweats, oral thrush, stops breathing during sleep, weight loss, sleeping in chair, fatigue, weight loss, weight gain, frequent colds, seasonal allergies, other, headache(s) or orthopnea EETM Ear Nose Throat Mouth: Positive hearing normal and nasal discharge; negative hard of hearing, hoarseness, dry mouth in morning, change in vision, itchy eyes, eye pain, swallowing Difficulty, ear pain, nose bleed, headache(s), mouth pain, nasal congestion, post nasal drip, sinus pain, sinus pressure, sore throat or other Cardio Cardiovascular: Positive edema; negative chest pain, chest pain at rest, chest pain with activity, irregular heart rhythm, shortness of breath when lying down, palpitations, murmur or other Resp Respiratory: Positive as per HPI, shortness of breath shortness of breath: Positive with activity and cough cough: Positive non-productive; negative pain with cough, wheezing, chest congestion, chest tightness, pain on inspiration, inhalers, increase use of rescue inhalers, snoring, apnea or other Gastro Gastrointestional: Negative bloody stools, change in appetite, difficulty swallowing, reflux, hematemesis, melena stool, loose stool, constipation or other Genitourinary: Negative blood in urine, nocturia, pain with urination or other Musc Musculoskeletal: Negative body pain, back pain, neck pain or other Skin/Breast Skin/Breast: Negative dry skin, itching, rash, unusual bruising, breast lump or other Neuro Neurological: Negative restless legs, confusion, weakness or other Psych Psychocological: Negative abnormal sleep pattern, anxiety, thoughts of hurting self/others, hopelessness or other Lymph Lymphatic: Negative easy bleeding, easy bruising, swollen lymph nodes or other Exam Const Constitutional: Positive conversant, cooperative, in no acute respiratory distress, healthy appearing, well developed, well nourished, good hygiene and obese Head Head: Positive normocephalic and atraumatic; negative cyanosis of lips/distal nose, frontal sinus tenderness or maxillary sinus tenderness Eyes Eye: Positive clear conjunctiva and nystagmus; negative scleral abnormality Ears Ear: Positive hearing normal and external ears normal; negative hard of hearing Nose Nose: Positive external nose normal and no nasal discharge; negative epistaxis Mouth Mouth: Positive oral mucosae normal, no lesions and crowded posterior oropharynx; negative post nasal drip, malodorous breath or oral thrush present Mallampati Score: III: Mallampati Score Neck Neck: Positive normal visual inspection, full ROM, trachea midline and thick neck; negative lymphadenopathy, JVD or tender Chest Wall Chest: Positive normal inspection of the chest and symmetric chest movement Resp lung sounds: Positive wheezes, normal expiratory time, normal respiratory effort and diminished; negative rhonchi, rales, dullness to percussion, increased work of breathing or use of accessory muscles Cardio Cardiac: Positive regular rate, regular rhythm, S1 normal and S2 normal; negative murmur GI GI: Positive normal to inspection, normal bowel sounds and obese; negative distended Genitourinary: Positive deferred Musc Musculoskeletal: Positive steady gait and ROM normal; negative kyphosis or scoliosis Skin Pulmonary Skin Exam: Positive intact; negative rash, lesion, ulcers, erythema, scaly or dermal atrophy Pulses Pulse: Yes pulses normal x4 extremities Extremities Extremities: Yes capillary refill normal, No clubbing, No cyanosis, No edema, No stasis dermatitis Neuro Neurologic: Yes conversant, Yes no focal neuro deficits, Yes cooperative, Yes normal cognition, Yes normal coordination, Yes normal concentration, Yes understands questions, No tremor Lymph Lymphatic: No lymphadenopathy, No tenderness, No cervical adenopathy, No axillary adenopathy Psych Appearance: Positive grossly normal, eye contact and well kempt Mental Status: Positive mental status grossly normal Mood: Positive congruent mood Affect: Positive normal affect Office Procedures Inhaler Training Inhaler Training Procedure performed by: Beverly Emerson Inhaler Training: Yes personally trained on inhaler use, expresses understanding and continue to monitor Coding Level of Care Code Off vis,est,level 4 Diagnoses Wheeze R06.2 Cough R05 03/20/18 1537 <Electronically signed by Beverly SCHWARTZ> Date Beverly SCHWARTZ Cosigner Signature: Date (if applicable) CC: Mike Shafer SURGERY VISIT REPORT Observed: 01/13/2018 Status: F Source: [place] 8:[address] [facility] [address] [place] [address] OFFICE VISIT Date of Service: 01/13/18 MR#: [id number] Acct: [id number] Name: AMAYA GARCIA Javi Rep #: [id number] : 1955 Provider: Claudio Cantor MD Age/Sex: 62/F Location: [facility] Status: Signed Intake Vital Signs01/13/18 Height 5 ft 1 in 01/13/18 Weight: 213 lb Intake Visit Reasons: 1 YEAR F/U LEFT, MAMMO @ [facility] 6 MO AGO Chief Complaint: sinus pressure and left ear pressure Director Imaging Required: No Is patient in pain?: No Allergies No Known Allergies Allergy (Verified 01/13/18 07:58) Medications Celecoxib [Celebrex] 200 mg PO DAILY 01/10/17 [History Confirmed 01/13/18] Trazodone ER [Oleptro Er] 150 mg PO QHS 01/10/17 [History Confirmed 01/13/18] Valacyclovir HCl [Valacyclovir] 500 mg PO DAILY 01/10/17 [History Confirmed 01/13/18] Escitalopram Oxalate [Lexapro] 10 mg PO DAILY 02/25/17 [History Confirmed 01/13/18] Tamoxifen [Nolvadex] 20 mg PO DAILY 05/06/17 [History Confirmed 01/13/18] rosuvastatin 40 mg tablet 40 mg PO DAILY 12/31/17 [History Confirmed 01/13/18] [facility] Medical History Arthritis (Acute) Breast cancer (Acute) Diverticulitis (Acute) Hyperlipidemia (Acute) SOB (shortness of breath) (Acute) Surgical History History of section (Acute) History of lumpectomy (Acute) History of shoulder surgery (Acute) History of tonsillectomy and adenoidectomy (Acute) History of tubal ligation (Acute) Family History Mother CVA (cerebral vascular accident) Arthritis Heart disease Father Hypertension Heart disease Diabetes Social History Smoking Status: Former smoker HPI HPI HPI: AMAYA GARCIA, is a 62 F who presents to the office today for 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 Patient underwent a lumpectomy with sentinel lymph node biopsy on January 15, 2017. 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 Pathologic specimen showed that her diagnosis remained ductal carcinoma in situ the closest margins being 8 mm it also showed the 2 sentinel lymph nodes were negative. This gave her the pathologic diagnosis of pTis (dcis) N0 (sn) Mx. Her self breast exams have been normal she has not noticed any abnormality on her exam she is not experiencing any discomfort and she has had no nipple discharge. Her last mammogram was completed on 07/03/2017 which was read as a BI-RADS Category 2 there are no more recent mammograms to date. ROS General General: Yes weight change and breast cancer; no appetite, fatigue, colon cancer or weakness HEENT HEENT: No difficulty swallowing, eye injury, eye surgery, swollen glands or hoarseness Endo Endocrine: No thyroid disease, diabetes mellitus, thyroid cancer, Hair loss, heat intolerance or cold intolerance Skin Skin: No rash or changing moles Breast Breast: No left breast lump, right breast lump, nipple discharge, breast pain, abnormal mammogram, abnormal US or breast enlargement Musc Musculoskeletal: Yes arthritis; no back problems, rheumatoid arthritis, gout or joint pain Cardio Cardiovascular: No murmur, pacemaker, heart disease, atrial fibrillation, high blood pressure, heart attack, heart stent, palpitations, shortness of breat with exertion or chest pain Psych Psychiatric: Yes depression; no anxiety or hearing voices Resp Respiratory: No shortness of breath, Yes sleep apnea, No cough, No COPD, No asthma, No emphysema, No wheezing Gastro Gastrointestinal: No abdominal pain, No nausea or vomiting, Yes diarrhea, No constipation, No blood in stool, No acid reflux, No hemorrhoids, No ulcers, No gallbladder problem, No black,tarry stools Donald Hematologic: No blood thinners, No blood disorders, No bleeding, No anemia, No blood clots Neuro Neurologic: No weakness Exam Const General: well developed, no acute distress, well hydrated Orientation: oriented to person, oriented to place, oriented to time [facility] Head: normal to inspection, normocephalic, atraumatic Ears: external ears normal Mouth: moist mucous membranes, oropharynx normal Eyes General: appearance normal, both eyes and all related structures Sclera: sclerae normal Pupils: normal by confrontation Neck Neck: no lymphadenopathy noted, trachea midline Neck mass: No Thyroid: thyroid normal Lymphatic: no lymphadenopathy noted Chest Chest palpation AND inspection: normal inspection of the chest Breast inspection: normal inspection of the breasts Breast Palpation: No nipple discharge Other: Palpation of the right breast reveals no abnormal palpable lesions. Palpation of the left breast reveals no abnormal palpable lesions well-healed scar in the left outer quadrant. Normal radiation changes to the skin. Axillary exam demonstrates no suspicious masses in either the left or right axilla. Resp Effort AND Inspection: normal respiratory effort Auscultation: clear to auscultation bilaterally Percussion: percussion normal Other: Respiratory Exam: Deferred Cardio Rate: regular rate Rhythm: regular rhythm Heart Sounds: no murmurs Other: Cardiac Exam: Deferred GI Palpation: soft, nontender, no masses, no hepatosplenomegaly Rectal Exam: other Other: GI Exam: Deferred Other: Rectal Exam: Deferred Extrem General: no clubbing, cyanosis or edema, normal to inspection Other: Extremity Exam: Deferred Assessment AND Plan Problems 1. 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 At that point that will be our new yearly date to see one another. At the prep time I have no surgical interventions planned for her. 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 Serum Triglycerides Reference Interval Normal <150 mg/dL Borderline high 150 - 199 mg/dL High 200 - 499 mg/dL Very High > or = 500 mg/dL LAB L501.6400 mg/dL Normal HDL 47 Result Comment: The drugs N-Acetylcysteine and Metamizole may falsely depress this assay. Reference Range HDL <40 mg/dL Low HDL Cholesterol HDL >or= 60 mg/dL High HDL Cholesterol LAB L501.6500 0-130 mg/dL High LDL 132 LAB L501.6600 5-40 mg/dL Normal VLDL 32 Performed By: #### L500.4100, L501.0100 #### [facility] [address] [place], [place], [address] GLUCOSE Collected: 11/19/2017 Status: F Source: [place] 7:59 AM [facility] REPOSITORY TYPE CODE TESTS RESULT OUT OF RANGE REFERENCE UNITS LAB L501.0100 74-106 mg/dL Normal GLU 93 Result Comment: Please note revised GLUCOSE reference range effective 2017. Performed By: #### L500.4100, L501.0100 #### [facility] [address] [facility], [address] CBC W/DIFF, AUTOMATED Collected: 11/07/2017 Status: F Source: [place] 6:46 AM [facility] REPOSITORY Order Comment: Reason for Laboratory Test . TYPE CODE TESTS RESULT OUT OF RANGE REFERENCE UNITS LAB L100.1000 4.4-11.0 K/mm3 Normal WBC 5.3 LAB L100.1200 4.2-5.4 M/mm3 Normal RBC 4.70 LAB L100.1300 12.0-15.0 g/dl Normal HGB 13.8 LAB L100.1400 37-47 % Normal HCT 43.6 LAB L100.1500 81-99 fL Normal MCV 92.8 LAB L100.1600 27.0-32.0 pg Normal MCH 29.4 LAB L100.1700 32-36 g/gl Low MCHC 31.7 LAB L100.1810 11.6-14.6 % Normal RDW CV 13.3 LAB L100.1820 35.1-43.9 fl High RDW SD 45.3 LAB L100.1900 150-450 K/mm3 Normal PLT 183 LAB L100.2000 6.2-12.0 fl Normal MPV 11.8 LAB L100.2100 47-70 % Normal NEUT% 62.3 LAB L100.2200 19-41 % Normal LY% 25.9 LAB L100.2300 0-10 % Normal MONO% 7.6 LAB L100.2400 0-5 % Normal EO% 3.2 LAB L100.2500 0-1 % Normal BASO% 0.8 LAB L100.2550 0.0-0.9 % Normal IM GRAN % 0.200 Result Comment: IG% - Immature Granulocytes (promyelocytes, myelocytes and metamyelocytes) > 1% indicates that a LEFT SHIFT is Present. LAB L100.2620 2.0-7.7 X10 3/uL Normal Absolute Neut 3.3 LAB L100.2720 0.83-4.51 X10 3/ul Normal Absolute Lymph 1.36 Performed By: #### L100.0100 #### [facility] [address] [place], [address] COMPREHENSIVE METABOLIC Collected: 11/07/2017 Status: F Source: [facility] 6:46 AM [facility] REPOSITORY Order Comment: Reason for Laboratory Test . TYPE CODE TESTS RESULT OUT OF RANGE REFERENCE UNITS LAB L501.0100 70-110 mg/dL Normal GLU 100 LAB L501.1000 7-18 mg/dL High BUN 23 LAB L501.1100 0.55-1.02 mg/dL Normal 0.68 CREAT,SERUM Result Comment: The validity of the calculated GFR AND GFRAA in patients over 70 years has not been determined. Clinical correlation is essential. LAB L501.1110 >60 mL/min Normal EST GFR 93 Result Comment: Non- GFR Calc LAB L501.1115 >60 mL/min Normal EST GFR - AA 113 Result Comment: GFR Calc LAB L501.1300 10-20 RATIO High BUN/CRE 33.6 LAB L501.1500 6.4-8.2 g/dL T Normal PROT 6.8 LAB L501.1800 3.2-5.0 g/dL Normal ALB 3.3 LAB L501.1950 2.2-4.2 g/dL Normal GLOB 3.5 LAB L501.2000 0.9-2.4 RATIO Normal A/G 0.9 LAB L501.2200 8.5-10.1 mg/dL CA Normal 8.6 LAB L501.4100 15-37 U/L Normal AST 25 LAB L501.4305 45-117 U/L Normal ALK P 67 LAB L501.4405 13-56 U/L Normal ALT 49 Result Comment: Please note revised ALT reference range effective 2017. LAB L501.4600 0.20-1.00 mg/dL Normal T BILI 0.40 LAB L501.5300 136-145 mmol/L Normal NA 142 LAB L501.5600 3.5-5.1 mmol/L Normal K 4.1 LAB L501.5900 98-107 mmol/L Normal CL 106 LAB L501.6100 21.0-32.0 mmol/L Normal CO2 26.0 LAB L501.6200 5-15 Normal GAP 10 Performed By: #### L500.4050 #### [facility] [address] [place], [address] VITAMIN D,25 HYDROXY Collected: 11/07/2017 Status: F Source: [place] 6:46 AM [facility] REPOSITORY TYPE CODE TESTS RESULT OUT OF REFERENCE UNITS RANGE LAB L506.1000 19.95-100.01 ng/mL Low Vitamin D 15.1 25-OH Result Comment: Vitamin D 25(OH) Status Range Deficiency <20 ng/mL (50nmol/L) Insuffciency 20 - 30 ng/mL (50 - 75 nmol/L) Sufficiency 30 - 100 ng/mL (75 - 250 nmol/L) Toxicity >100 ng/mL (>250 nmol/L) Performed By: #### L506.1000 #### [facility] [address] [place] [address] [place], [place], [address] ALLERGIES ALLERGIES DATE TYPE / CODE NAME / CODE REACTION SEVERITY SOURCE 07/29/2018 Drug No Known Unknown [facility] Allergy/4160 Allergies/F00 [facility] 60931(SNOMED 5248033(RXNOR Repository CT) M) ENCOUNTERS ENCOUNTERS ADMIT/DISCHARGE ACCOUNT NUMBER ADMITTING ENCOUNTER LOCATION SOURCE CLASS 09/16/2018/09/20/20 [id number] Ambulatory BBuilding:DR Campbell 18 [facility] Repository 08/31/2018 [id number] Ambulatory [facility] ding: Repository 07/29/2018/07/29/20 [id number] Ambulatory BMSBuilding: [place] [address] BMS.[facility] Repository 07/28/2018/07/28/20 [id number] Ambulatory BMSBuilding: [place] 18 [facility] Repository 07/21/2018 [id number] Ambulatory [facility] ding:PSN Repository 07/21/2018 [id number] Ambulatory BMSBuilding: [place] [facility] Hospital Repository 07/06/2018 [id number] Ambulatory [facility] Hospital ding:OPBI Repository 05/14/2018 [id number] Ambulatory [facility] ding:OMD Repository 05/14/2018 [id number] Ambulatory BMSBuilding: [place] BMS.[facility] Repository 05/11/2018 [id number] Ambulatory [facility] ding:LAB Repository 04/27/2018 [id number] Ambulatory [facility] ding:OPUS Repository 04/03/2018/04/03/20 [id number] Ambulatory BMSBuilding: [place] 18 [facility] Repository 03/23/2018 [id number] Ambulatory [facility] ding:LAB Repository 03/20/2018/03/20/20 [id number] Ambulatory BMSBuilding: [place] 18 [facility]MS.[facility] Repository 03/19/2018 [id number] Ambulatory BMS [facility] Repository 03/12/2018/03/12/20 [id number] Ambulatory BMSBuilding: [place] 18 BMS.[facility] Repository 01/13/2018/01/14/20 [id number] Ambulatory BMSBuilding: [place] 18 BMS.[facility] Repository 12/31/2017/01/01/20 [id number] Ambulatory BMSBuilding: [place] 18 BMS.[facility] Repository 11/19/2017 [id number] Ambulatory [facility] ding:OLS[facility] Repository H 11/12/2017 [id number] Ambulatory BMSBuilding: [place] BMS.[facility] Repository 11/07/2017 [id number] Ambulatory [facility] Hospital ding:LAB Repository PAYERS PAYERS ENCOUNTER GUARANTOR PAYER SUBSCRIBER SOURCE 09/16/2018 AMAYA Caldwell [facility]: Insurance:AET RADHADOB: [facility] Number: [id number] Repository amber [id number] amber [place], Date:2018-09-16 - [place], [place] [address]Yuf: [id number] [place] [address]Abv: Name:NEVILLE DAMON () [id number] NOR[place]ERT LAIRD ()Tel: [phone]: ([phone] 08/31/2018 AMAYA A Primary AMAYA A [place] [id number] AMBER Insurance:AETNAPolicy GRAHAMDOB: [place] Number: [id number] Hospital [address]Xbk: (315) [id number] Repository [phone] () Date:5019-92-12[address]Fn[place], [place] [address]MT: 08/31/2018 Secondary NOT GIVENUNK [place] Insurance:SELF PAY [facility] Number: Effective Repository Date:2018-08-20 07/29/2018 AMAYA A Primary AMAYA A [place] [id number] AMBER Insurance:AETNAPolicy GRAHAMDOB: [place] Number: [id number] Hospital [address]Lon: (466) [id number] Repository [phone] () Date:4754-42-35Az [address]Gl[place], [place] [address]LI: 07/29/2018 Secondary NOT GIVENUNK [place] Insurance:SELF PAY [facility] Number: Effective Repository Date:2018-07-29 07/28/2018 AMAYA A Primary AMAYA A [place] [id number] AMBER Insurance:AETNAPolicy GRAHAMDOB: [place] Number: [id number] Hospital [address]Vzp: (464) [id number] Repository [phone] () Date:3920-12-45Zn [address]It[place], [place] [address]IN: 07/28/2018 Secondary NOT GIVENUNK [place] Insurance:SELF PAY [facility] Effective Repository Date:2018-07-20 07/21/2018 AMAYA A Primary MAAYA A [place] [id number] AMBER Insurance:AETNAPolicy GRAHAMDOB: [place] Number: [id number] Hospital [address]Vss: 330 [id number] Repository [phone] () Date:0100-94-08Ej [address]Vr[place], [place] [address]PK: 07/21/2018 Secondary NOT GIVENUNK [place] Insurance:SELF PAY [facility] Number: Effective Repository Date:2018-03-20 07/21/2018 AMAYA A Primary AMAYA A [place] [id number] AMBER Insurance:AETNAPolicy GRAHAMDOB: [place] Number: [id number] Hospital [address]Mvq: 330 [id number] Repository [phone] () Date:0770-25-05Mi [address]Ko[place], [place] [address]LN: 07/21/2018 Secondary NOT GIVENUNK [place] Insurance:SELF PAY [facility] Number: Effective Repository Date:2018-07-21 07/06/2018 AMAYA A Primary AMAYA A [place] [id number] AMBER Insurance:AETNAPolicy GRAHAMDOB: [place] Number: [id number] Hospital [address]Toi: 330 [id number] Repository [phone] () Date:9725-74-79Ol [address]Vu[place], [place] [address]BV: 07/06/2018 Secondary NOT GIVENUNK [place] Insurance:SELF PAY [facility] Number: Effective Repository Date:2018-05-14 05/14/2018 AMAYA A Primary AMAYA A [place] [id number] AMBER Insurance:AETNAPolicy [place]RAHAMDOB: [place] Number: [id number] Hospital [address]Xis: (330) [id number] Repository [phone] (HP) Date:6424-75-02Bj [address] [address]RM: 05/14/2018 Secondary NOT GIVENUNK [place] Insurance:SELF PAY [facility] Number: Effective Repository Date:2017-04-16 05/14/2018 AMAYA A Primary AMAYA A [place] [id number] AMBER Insurance:AETNAPolicy GRAHAMDOB: [facility] [place] Number: [id number] Hospital [address]Kri: (330) [id number] Repository [phone] (HP) Date:9482-14-59Qj [address]Lq[place], [place] [address]VN: 05/14/2018 Secondary NOT GIVENUNK [place] Insurance:SELF PAY [facility] Number: Effective Repository Date:2018-05-14 05/11/2018 AMAYA A Primary AMAYA A [place] [id number] AMBER Insurance:AETNAPolicy GRAHAMDOB: [facility] [place] Number: [id number] Hospital [address]Rhu: (330) [id number] Repository [phone] (HP) Date:2359-67-61II [address] [address]DM: 05/11/2018 Secondary NOT GIVENUNK [place] Insurance:SELF PAY [facility] Number: Effective Repository Date:2018-05-11 04/27/2018 AMAYA A Primary AMAYA A [place] [id number] AMEBR Insurance:AETNAPolicy GRAHAMDOB: [facility] [place] Number: [id number] Hospital [address]Zbb: (737) [id number] Repository [phone] (HP) Date:5340-61-06NN [address] [place] [address]FS: 04/27/2018 Secondary NOT GIVENUNK [place] Insurance:SELF PAY [facility] Number: Effective Repository Date:2018-04-22 04/03/2018 AMAYA A Primary AMAYA A [place] [id number] AMBER Insurance:AETNAPolicy GRAHAMDOB: [facility] Number: [id number] Hospital [address]Gqm: 330 [id number] Repository [phone] (HP) Date:8734-69-75OS [address] [address]WI: 04/03/2018 Secondary NOT GIVENUNK [place] Insurance:SELF PAY [facility] Number: Effective Repository Date:2018-04-01 03/23/2018 AMAYA A Primary AMAYA A [place] [id number] AMBER Insurance:AETNAPolicy GRAHAMDOB: [place] Number: [id number] Hospital [address]Sgq: [id number] Repository [phone] Date:9679-07-24GM [address] () [address] [address]IR: 03/23/2018 Secondary NOT GIVENUNK [place] Insurance:SELF PAY [facility] Number: Effective Repository Date:2018-03-23 03/20/2018 AMAYA A Primary AMAYA A [place] [id number] AMBER Insurance:AETNAPolicy GRAHAMDOB: [place] Number: [id number] Hospital [address]Vco: [id number] Repository [phone] Date:4809-12-75QI [address] () [address] [address]ZU: 03/20/2018 Secondary NOT GIVENUNK [place] Insurance:SELF PAY [facility] Number: Effective Repository Date:2018-03-20 03/19/2018 AMAYA A Primary AMAYA A [place] [id number] [place] Insurance:AETNAPolicy GRAHAMDOB: [place] Number: [id number] Hospital [address]Ooj: [id number] Repository [phone] Date:0887-70-35XF [address] (HP) [id number] [place] [address]NZ: 03/19/2018 Secondary NOT GIVENUNK [place] Insurance:SELF PAY [facility] Number: Effective Repository Date:2018-03-19 03/12/2018 AMAYA A Primary AMAYA A [place] [id number] AMBER Insurance:AETNAPolicy GRAHAMDOB: [facility] [place] Number: [id number] Hospital [address]Wqu: 330 [id number] Repository [phone] (HP) Date:0695-37-95KN [address] [place] [address]VM: 03/12/2018 Secondary NOT GIVENUNK [place] Insurance:SELF PAY [facility] Number: Effective Repository Date:2018-03-25 01/13/2018 AMAYA A Primary AMAYA A [place] [id number] [place] Insurance:AETNAPolicy GRAHAMDOB: [facility] [place] Number: [id number] Hospital [address]Ibt: [id number] Repository [phone] Date:2822-51-45GD [address] (HP) [address] [place] [address]AQ: 01/13/2018 Secondary NOT GIVENUNK [place] Insurance:SELF PAY [facility] Number: Effective Repository Date:2018-01-13 12/31/2017 AMAYA A Primary AMAYA A [place] [id number] [place] Insurance:AETNAPolicy GRAHAMDOB: [facility] [place] Number: [id number] Hospital [address]Quo: [id number] Repository [phone] Date:2418-75-96HG [address] (HP) 06[address]ZU [place] [address]GN: 12/31/2017 Secondary NOT GIVENUNK [place] Insurance:SELF PAY [facility] Number: Effective Repository Date:2017-12-31 11/19/2017 Amaya Caldwell Primary NOT GIVENUNK [place] Harriet [place] Insurance:SELF PAY [facility] [address]Ioh: (330) Number: Effective Repository [phone] () Date:2017-11-19 11/12/2017 Amaya A Primary Amaya A Mariajoseena [place] Insurance:AETNAPolicy [place] Number: [id number] Hospital [address]Fcd: 330 [id number] Repository [phone] () Date:5721-53-85Qq [address] NOR[place] [address]IF: 11/12/2017 Secondary NOT GIVENUNK [place] Insurance:SELF PAY [facility] Number: Effective Repository Date:2017-11-12 11/07/2017 Amaya A Primary Amaya A Mariajoseena [place] Insurance:AETNAPolicy GrahamDOB: [facility] [place] Number: [id number] Hospital [address]Yfl: (330 [id number] [address]ository [address] () Date:3970-39-30QQ [address] [place] [address]LP: 11/07/2017 Secondary NOT GIVENUNK [place] Insurance:SELF PAY [facility] Number: Effective Repository Date:2017-08-05
== END ==
PROVIDERS: Family Provider Family Medicine; PCP Family Medicine; Referring Provider Obstetrics & Gynecology Gynecology; Visit Provider Obstetrics & Gynecology Gynecology
DX: N95.0 Postmenopausal bleeding (principal)
CPT/HCPCS: 76830; 76856; 93976

== ENCOUNTER → 2018-09-24 12:12 | Outpatient (CLI) | payer OTHER, SELFPAY ==
[2018-08-20 14:46] VITALS: BMI 40.6
--- NOTE | 2018-09-24 12:15 | US_ITS ---
STUDY: SUPERFICIAL ULTRASOUND - LEFT POPLITEAL FOSSA REASON FOR EXAM: Female, 62 years old. Intermittent left popliteal pain. TECHNIQUE: A superficial ultrasound was performed with real-time and static santacruz-scale imaging. COMPARISON: None. FINDINGS: Scanning shows normal subcutaneous fat overlying the deeper muscular tissues of the popliteal fossa. There is no demonstrated mass or fluid collection. US/Ext Non Vasc Limited/Soft Tiss IMPRESSION: Normal ultrasound of the left popliteal fossa. Electronically Signed: Aníbal Harden MD at 14:53 EST , Service support ,
== END ==
PROVIDERS: Family Provider Family Medicine; PCP Family Medicine; Referring Provider Family Medicine; Visit Provider Family Medicine
DX: M71.22 Synovial cyst of popliteal space [Baker], left knee (principal)
CPT/HCPCS: 76882

== ENCOUNTER → 2018-11-06 15:18 | Outpatient (CLI) | payer OTHER, SELFPAY ==
[2018-08-20 14:46] VITALS: BMI 40.6
[2018-11-06 16:07] LABS: Absolute Lymphocyte Count 1.55 X10^3/ul (0.83-4.51); Absolute Neutrophil Count 4.5 X10^3/uL (2.0-7.7); Basophil# 0.04 X10^3/uL; Basophil% 0.6 % (0-1); Eosinophil# 0.29 X10^3/uL; Hematocrit 44.7 % (37-47); Hemoglobin 14.5 g/dl (12.0-15.0); Lymphocyte # 1.55 X10^3/ul (4.0); Lymphocyte % 21.6 % (19-41); Mean Corp Hgb Conc 32.4 g/gl (32-36); Mean Corpuscular Volume 92.4 fL (81-99); Mean Platelet Vol. 11.5 fl (6.2-12.0); Monocyte% 11.1 % (0-10); Neutrophil # 4.48 X10^3/uL (2.7-7.7); Neutrophil % 62.4 % (47-70); Platelet Count 203 K/mm3 (150-450); RBC Distribution Width CV 13.9 % (11.6-14.6); RBC Distribution Width SD 46.7 fl (35.1-43.9); Red Blood Count 4.84 M/mm3 (4.2-5.4); White Blood Count 7.2 K/mm3 (4.4-11.0)
[2018-11-06 16:13] LABS: POSITIVE COUNT NO; POSITIVE DIFFERENTIAL NO; POSITIVE MORPHOLOGY NO
[2018-11-06 16:54] LABS: ALB/GLOB Ratio 0.9 RATIO (0.9-2.4); AST(SGOT) 51 U/L (15-37); Alanine Aminotransfer ALT/SGPT 103 U/L (13-56); Albumin, Serum 3.5 g/dL (3.2-5.0); Alkaline Phosphatase 95 U/L (45-117); Anion Gap 10 (5-15); BUN 17 mg/dL (7-18); BUN/Creat Ratio 24.6 RATIO (10-20); Calcium,Total 8.8 mg/dL (8.5-10.1); Chloride 106 mmol/L (98-107); Creatinine, Serum 0.69 mg/dL (0.55-1.02); EST Glomerular Filtration Rate 92 mL/min (>60); Est Glom Filt Rate - Afr Amer 111 mL/min (>60); Globulin 3.8 g/dL (2.2-4.2); Glucose 92 mg/dL (74-106); Potassium 3.9 mmol/L (3.5-5.1); Protein, Total 7.3 g/dL (6.4-8.2); Sodium Level 141 mmol/L (136-145)
[2018-11-06 17:01] LABS: Vitamin D,25 Hydroxy 22.4 ng/mL (29.95-100.01)
== END ==
PROVIDERS: Nurse Practitioner Family; Family Provider Family Medicine; PCP Family Medicine; Referring Provider Family Medicine; Visit Provider Family Medicine
DX: E55.9 Vitamin D deficiency, unspecified (principal); Z86.000 Personal history of in-situ neoplasm of breast
CPT/HCPCS: 36415; 80053; 82306; 85025

== ENCOUNTER → 2019-06-01 | Outpatient (CLI) | payer OTHER, SELFPAY ==
[2019-06-01 14:37] VITALS: BMI 43.8
--- NOTE | 2019-06-01 15:28 | RAD_ITS ---
STUDY: X-RAY - LEFT ANKLE REASON FOR EXAM: Female, 63 years old. Pain and swelling. TECHNIQUE: 3 view(s) of the ankle. COMPARISON: None. FINDINGS: Normal visualized distal tibia and fibula. Normal medial and lateral malleoli. Normal tibiotalar articulation and ankle mortise. Normal visualized talus and calcaneus. The visualized subtalar, talonavicular, calcaneocuboid and tarsal articulations are normal. There is diffuse soft tissue swelling about the ankle most marked laterally. RAD/Ankle min 3 Views IMPRESSION: Soft tissue prominence without fracture or dislocation Electronically Signed: Giles Arroyo DO at 16:04 EDT Tel [phone], Service support ,
--- NOTE | 2019-06-01 15:33 | RAD_ITS ---
STUDY: X-RAY - RIGHT ANKLE REASON FOR EXAM: Female, 63 years old. Pain and swelling. TECHNIQUE: 3 view(s) of the ankle. COMPARISON: None. FINDINGS: Normal visualized distal tibia and fibula. Normal medial and lateral malleoli. Normal tibiotalar articulation and ankle mortise. Normal visualized talus and calcaneus. The visualized subtalar, talonavicular, calcaneocuboid and tarsal articulations are normal. There is diffuse soft tissue swelling over the lower leg and ankle, most marked laterally. RAD/Ankle min 3 Views IMPRESSION: Soft tissue swelling without visualized fracture or dislocation. Electronically Signed: Giles Arroyo DO at 16:04 EDT Tel [phone], Service support ,
== END | disposition home or self-care (01) ==
LOC: RAD 15:15
PROVIDERS: Family Provider Family Medicine; PCP Family Medicine; Referring Provider Internal Medicine Medical Oncology; Visit Provider Internal Medicine Medical Oncology
DX: R22.43 Localized swelling, mass and lump, lower limb, bilateral (principal); M25.571 Pain in right ankle and joints of right foot; M25.572 Pain in left ankle and joints of left foot
CPT/HCPCS: 73610

== ENCOUNTER → 2019-07-08 | Outpatient (CLI) | payer OTHER, SELFPAY ==
[2019-06-01 14:37] VITALS: BMI 43.8
--- NOTE | 2019-07-08 15:06 | BI_ITS ---
MAMMOGRAPHY - BILATERAL SCREENING REASON FOR EXAM: Female, 63 years old. Routine annual screening examination. PERTINENT HISTORY: Personal history of breast cancer. Prior left lumpectomy with radiation therapy. Grandmother with breast cancer. Aunt with breast cancer. TECHNIQUE: Digital bilateral breast wil (3D mammographic acquisition) in the CC and MLO projections. 2-D mediolateral oblique (MLO) and craniocaudad (CC) views of both breasts were obtained. CAD: Full Field Digital Mammography with Computer Added Detection was performed. COMPARISON: Comparison is made with prior study dated July 06, 2018 and July 03, 2017. FINDINGS: Breast Composition: The breasts are heterogeneously dense, which may obscure small masses. Stable architectural distortion in the deep central portion of the left breast. Stable appearance of the left breast following lumpectomy. Stable benign-appearing bilateral axillary lymph nodes. There are no dominant masses or suspicious calcifications. No other significant abnormalities are identified. There has been no significant change since the prior study. BI/SCREEN MAMM (CAD) W/WIL BILAT IMPRESSION: Stable bilateral screening mammogram. Yearly follow-up mammogram recommended. (A) ASSESSMENT CATEGORY: BIRADS Category 2: Benign. A letter regarding these results will be sent to the patient by the facility within 30 days. Approximately 10% of breast cancers are not detected by mammography. A normal mammogram should not delay biopsy of a clinically suspicious abnormality. [id number] Electronically Signed: Douglas Hauser, at 8:36 EDT , Service support ,
== END | disposition home or self-care (01) ==
LOC: OPBI 15:04
PROVIDERS: Family Provider Family Medicine; PCP Family Medicine; Referring Provider Internal Medicine Medical Oncology; Visit Provider Internal Medicine Medical Oncology
DX: Z12.31 Encounter for screening mammogram for malignant neoplasm of breast (principal); Z85.3 Personal history of malignant neoplasm of breast
CPT/HCPCS: 77063; 77067

== ENCOUNTER → 2019-07-08 | Outpatient (CLI) | payer OTHER, SELFPAY ==
[2018-11-10 15:28] VITALS: BMI 42.7
[2019-06-01 14:37] VITALS: BMI 43.8
--- NOTE | 2019-07-09 10:28 | PFTCOMP ---
COMPLETE PULMONARY FUNCTION TEST INTERPRETATION Brief HPI: Patient is a 63 year old female, currently under the care of myself, who presents to [facility] for complete pulmonary function tests secondary to diagnosis of DOROTEO. Respiratory therapist reports good effort and reproducible results. Interpretation: Forced expiration spirometry shows no large airways obstructive ventilatory defect with an FEV1 of 109% predicted. There is no significant bronchodilator response by strict ATS criteria. Spirograms are of good quality and plateau normally. The respiratory flow volume loop shows a normal pattern. Lung volumes by body plethysmography show an elevated total lung capacity at 5.25 L, 123% predicted. All other lung volumes are within normal limits. Diffusion capacity by carbon monoxide is decreased at 52% predicted. The airway resistance is normal. Compared to previous pulmonary function tests from 07/21/2018, there is been significant worsening and air trapping and decrease in DLCO by 15%. Impression: Isolated reduction diffusion capacity consistent with a pulmonary vascular disorder. There has been worsening compared to 2018
== END | disposition home or self-care (01) ==
LOC: PSN 13:19
PROVIDERS: Family Provider Family Medicine; PCP Family Medicine; Referring Provider Internal Medicine Critical Care Medicine; Visit Provider Internal Medicine Critical Care Medicine
DX: G47.33 Obstructive sleep apnea (adult) (pediatric) (principal); E66.9 Obesity, unspecified
CPT/HCPCS: 94060; 94726; 94729

== ENCOUNTER → 2020-07-19 | Outpatient (CLI) | payer OTHER, SELFPAY ==
[2020-05-30 14:23] VITALS: BMI 42.9
--- NOTE | 2020-07-19 15:24 | BI_ITS ---
MAMMOGRAPHY - BILATERAL SCREENING REASON FOR EXAM: Female, 64 years old. Routine annual screening examination. PERTINENT HISTORY: Personal history of breast cancer. Prior left lumpectomy and radiation therapy. Prior left stereotactic breast biopsy. Grandmother with breast cancer. TECHNIQUE: Digital bilateral breast wil (3D mammographic acquisition) in the CC and MLO projections. 2-D mediolateral oblique (MLO) and craniocaudad (CC) views of both breasts were obtained. CAD: Full Field Digital Mammography with Computer Added Detection was performed. COMPARISON: Comparison is made with prior examination dated 07/08/2019 and 07/06/2018. FINDINGS: Breast Composition: There are scattered areas of fibroglandular density. There are no dominant masses or suspicious calcifications. Stable area of architectural distortion in the deep central portion of the left breast in keeping with prior lumpectomy. Stable small benign appearing bilateral axillary lymph nodes. No other significant abnormalities are identified. There has been no significant change since the prior study. BI/SCREEN MAMM (CAD) W/WIL BILAT IMPRESSION: Stable bilateral screening mammogram. Yearly follow-up mammogram recommended. (A) ASSESSMENT CATEGORY: BIRADS Category 2: Benign. A letter regarding these results will be sent to the patient by the facility within 30 days. Approximately 10% of breast cancers are not detected by mammography. A normal mammogram should not delay biopsy of a clinically suspicious abnormality. [id number] Electronically Signed: Douglas Hauser, at 8:36 EDT , Service support ,
== END | disposition home or self-care (01) ==
LOC: OPBI 15:24
PROVIDERS: PCP Family Medicine; Referring Provider Internal Medicine Medical Oncology; Visit Provider Internal Medicine Medical Oncology
DX: Z12.31 Encounter for screening mammogram for malignant neoplasm of breast (principal); Z86.000 Personal history of in-situ neoplasm of breast
CPT/HCPCS: 77063; 77067

== ENCOUNTER 2020-12-14 17:21 | Outpatient (RCR) | payer OTHER, SELFPAY ==
[2020-11-29 15:02] VITALS: BMI 41.6
[2020-12-14] MEDS: COVID-19 VACC, MRNA(PFIZER)/PF 30 MCG/0.3 ML SYRINGE IM (07:16)
[2021-01-04] MEDS: COVID-19 VACC, MRNA(PFIZER)/PF 30 MCG/0.3 ML SYRINGE IM (07:13)
== END 2020-12-14 23:59 ==
LOC: IMMUN 17:21
PROVIDERS: PCP Family Medicine; Visit Provider Family Medicine
DX: Z23 Encounter for immunization (principal)
CPT/HCPCS: 0001A; 0002A; 91300

== ENCOUNTER 2021-03-18 08:33 | Emergency (ER) | payer OTHER, SELFPAY ==
[2020-11-29 15:02] VITALS: BMI 41.6
[2021-03-18 08:34] VITALS: BP 129/81; PULSE 116; RESP 18; TEMP 36.2; O2SAT 94; BMI 41.0
[2021-03-18 08:35] VITALS: BP 129/81; PULSE 116; RESP 18; TEMP 36.2; O2SAT 94
[2021-03-18] MEDS: 0.9% Normal Saline 1,000 ML 1000 ML IV (08:52)
[2021-03-18 09:00] LABS: Absolute Lymphocyte Count 1.62 X10^3/uL (0.83-4.51); Absolute Neutrophil Count 15.3 X10^3/uL (2.0-7.7); Basophil# 0.11 X10^3/uL; Basophil% 0.6 % (0-1); Eosinophil# 0.01 X10^3/uL; Eosinophils% 0.1 % (0-5); Hematocrit 46.7 % (37-47); Hemoglobin 15.5 g/dL (12.0-15.0); Lymphocyte # 1.62 X10^3/ul (0.83-4.51); Lymphocyte % 8.8 % (19-41); Mean Corp Hgb Conc 33.2 g/dL (32-36); Mean Corpuscular Hgb 30.1 pg (27.0-32.0); Mean Corpuscular Volume 90.7 fL (81-99); Mean Platelet Vol. 11.6 fl (6.2-12.0); Monocyte# 1.28 X10^3/uL; Monocyte% 6.9 % (0-10); NRBC Flagged by Analyzer 0 % (0-5); Neutrophil # 15.34 X10^3/uL (2.7-7.7); Neutrophil % 83.1 % (47-70); Platelet Count 231 K/mm3 (150-450); RBC Distribution Width SD 43.4 fl (35.1-43.9); Red Blood Count 5.15 M/mm3 (4.2-5.4); White Blood Count 18.5 K/mm3 (4.4-11.0)
[2021-03-18 09:15] LABS: Anion Gap 10 (5-15); BUN 17 mg/dL (7-18); BUN/Creat Ratio 20.1 RATIO (10-20); Calcium,Total 9.3 mg/dL (8.5-10.1); Chloride 104 mmol/L (98-107); Creatinine, Serum 0.84 mg/dL (0.55-1.02); EST Glomerular Filtration Rate 72 mL/min (>60); Est Glom Filt Rate - Afr Amer 88 mL/min (>60); Estimated Creatinine Clearance 51.73 ml/min; Glucose 165 mg/dL (74-106); Potassium 3.7 mmol/L (3.5-5.1); Sodium Level 137 mmol/L (136-145)
[2021-03-18] MEDS: Dicyclomine 10 MG Capsule 20 MG PO (09:15)
[2021-03-18 09:35] VITALS: BP 121/79; PULSE 109; RESP 16; TEMP 36.2; O2SAT 94
--- NOTE | 2021-03-18 10:23 | CT_ITS ---
EXAM: CT ABDOMEN AND PELVIS WITH INTRAVENOUS CONTRAST : 1955 CLINICAL INDICATION: Left lower quadrant pain, leukocytosis, guarding a TECHNIQUE: Helically acquired images were obtained of the abdomen and pelvis with intravenous contrast. This CT exam was performed using one or more of the following dose reduction techniques: automated exposure control, adjustment of the mA and/or kV according to patient size, and/or use of iterative reconstruction technique. This report was created using [employer] report generation technology. CONTRAST: IV 100mL [id number] COMPARISON: None. FINDINGS: LOWER THORAX: Unremarkable. Lung bases are clear. No cardiomegaly. No significant pericardial effusion. ABDOMEN: LIVER: The liver is decreased in attenuation compatible fatty infiltration. There is a 1.3 x 1.6 cm low-density lesion in the liver which may represent a cyst or hemangioma. GALLBLADDER AND BILE DUCTS: Unremarkable. No calcified gallstones. No gallbladder distention or wall edema. No intra- or extrahepatic biliary ductal dilation. PANCREAS: Unremarkable. No focal cystic or solid mass. SPLEEN: Unremarkable. Normal size without focal cystic or solid mass. ADRENALS: Unremarkable. No nodules. KIDNEYS AND URETERS: The patient has a retroaortic left renal vein which is an anatomic variant. Normal renal size and position. No hydronephrosis. STOMACH AND BOWEL: There is thickening of the wall the sigmoid colon minimal surrounding inflammation which may represent colitis. There is a tiny diverticulum present possibly representing diverticulitis. There is no abscess or perforation. No stomach or bowel distention. PELVIS: APPENDIX: No evidence of acute appendicitis. BLADDER: Unremarkable. REPRODUCTIVE: Unremarkable as visualized. No mass. ABDOMEN and PELVIS: INTRAPERITONEAL SPACE: Unremarkable. No ascites or other fluid collection. No free air. BONES/JOINTS: Unremarkable. No suspicious lytic or blastic abnormality. SOFT TISSUES: Unremarkable. No discrete abdominal or pelvic wall hernia. VASCULATURE: See above. LYMPH NODES: Unremarkable. No enlarged lymph nodes. CT/Abdomen/Pelvis W IV Cont ONLY IMPRESSION: Thickening of the wall of the sigmoid colon with surrounding inflammation which may be due to colitis. There is a tiny diverticula seen and the possibility of diverticulitis cannot be excluded however the extent of wall thickening and inflammation is on a much larger segment with no diverticula present. There is no abscess or perforation. If indicated further evaluation with colonoscopy may be beneficial. Individualized dose optimization techniques were used for this CT. at 1112 Reported and signed by: Anthony Adame MD Electronically Signed: Anthony Adame MD at 11:11 EDT Tel , Service support ,
[2021-03-18 10:43] VITALS: BP 128/76; PULSE 111; RESP 16; TEMP 36.2; O2SAT 97
--- NOTE | 2021-03-18 11:53 | EDS_ITS ---
HPI HPI - GI History of Present Illness Chief Complaint: GI Bleed Informant: patient and family Abdominal Pain/Flank Pain Onset: Yesterday Context: Sudden Onset Timing: Intermittent Quality: - (Cramping) PFSH PFSH Medical History (Updated 03/18/21 @ 12:[address] Robel Jerry MD) Arthritis Breast cancer Diverticulitis Hyperlipidemia IBS (irritable bowel syndrome) Obesity DOROTEO (obstructive sleep apnea) SOB (shortness of breath) Vitamin D deficiency Home Medications trazodone 150 mg PO QHS 01/10/17 [History Last Taken Unknown] escitalopram oxalate 10 mg PO DAILY 02/25/17 [History Last Taken Unknown] rosuvastatin 40 mg tablet 40 mg PO DAILY 12/31/17 [History Last Taken Unknown] celecoxib 200 mg PO DAILY 05/30/20 [History Last Taken Unknown] cholecalciferol (vitamin D3) 1,000 unit PO DAILY 05/30/20 [History Last Taken Unknown] valacyclovir 500 mg PO DAILY 05/30/20 [History Last Taken Unknown] tamoxifen 20 mg PO DAILY 90 Days #90 tab 06/27/20 [Rx Last Taken Unknown] ciprofloxacin HCl 500 mg PO BID #14 tablet 03/18/21 [Rx Last Taken Unknown] dicyclomine 20 mg PO TIDAC #20 capsule 03/18/21 [Rx Last Taken Unknown] metronidazole 500 mg PO Q8H #21 tab 03/18/21 [Rx Last Taken Unknown] ondansetron 4 mg PO Q8H PRN PRN #10 tab 03/18/21 [Rx Last Taken Unknown] Allergy/AdvReac Type Severity Reaction Status Date / Time No Known Allergies Allergy Verified 03/18/21 08:34 Family History Mother CVA (cerebral vascular accident) Arthritis Heart disease Father Hypertension Heart disease Diabetes Surgical History History of section History of lumpectomy History of shoulder surgery History of tonsillectomy and adenoidectomy History of tubal ligation Social History (Updated 07/29/18 @ 15:54 by Darrel AMIN, PA) Smoking Status: Former smoker Tobacco: How many years used: 20 how long ago did patient quit smokin, 1ppd second hand exposure: Yes alcohol intake: current alcohol intake frequency: a few times a month Alcohol type: beer EXAM Physical Exam Const Vital Signs: 03/18/21 08:34 03/18/21 08:35 03/18/21 09:35 Temperature 97.2 F L 97.2 F L 97.1 F L Temperature Source Temporal Temporal Temporal Pulse Rate 116 H 116 H 109 H Respiratory Rate 18 18 16 Blood Pressure 129/81 H 129/81 H 121/79 H Blood Pressure Mean 97 97 93 Pulse Ox 94 94 94 Oxygen Delivery Method Room Air Room Air Room Air 03/18/21 10:43 Temperature 97.1 F L Temperature Source Temporal Pulse Rate 111 H Respiratory Rate 16 Blood Pressure 128/76 H Blood Pressure Mean 93 Pulse Ox 97 Oxygen Delivery Method Room Air MDM MDM Lab Data Attestation: I reviewed the patient's lab results. Labs: Laboratory Results - last 24 hr 03/18/21 03/18/21 08:50 08:50 WBC 18.5 H RBC 5.15 Hgb 15.5 H Hct 46.7 MCV 90.7 MCH 30.1 MCHC 33.2 RDW Std Deviation 43.4 RDW Coeff of Krunal 13.0 Plt Count 231 MPV 11.6 Immature Gran % (Auto) 0.500 Neut % (Auto) 83.1 H Lymph % (Auto) 8.8 L [place] % (Auto) 6.9 Eos % (Auto) 0.1 Baso % (Auto) 0.6 Absolute Neuts (auto) 15.3 H Absolute Lymphs (auto) 1.62 Nucleated RBC % 0 Sodium 137 Potassium 3.7 Chloride 104 Carbon Dioxide 23.0 Anion Gap 10 BUN 17 Creatinine 0.84 Estim Creat Clear Calc 51.73 Est GFR (MDRD) Af Amer 88 Est GFR (MDRD) Non-Af 72 BUN/Creatinine Ratio 20.1 H Glucose 165 H Calcium 9.3 Radiography Diagnostic Testing: Radiology Impression Abdomen/Pelvis CT 03/18/21 10:23 IMPRESSION: Thickening of the wall of the sigmoid colon with surrounding inflammation which may be due to colitis. There is a tiny diverticula seen and the possibility of diverticulitis cannot be excluded however the extent of wall thickening and inflammation is on a much larger segment with no diverticula present. There is no abscess or perforation. If indicated further evaluation with colonoscopy may be beneficial. Individualized dose optimization techniques were used for this CT. at 1112 Reported and signed by: Anthony Adame MD Electronically Signed: Anthony Adame MD at 11:11 EDT Tel , Service support , Treatment and Re-Evaluation Comments:: Patient was reassessed at 1213. She was informed of her CAT scan results. She states she is in no pain presently her abdominal exam is unremarkable other than minimal tenderness. Plan is discharged to home with prescription for Bentyl, Zofran, ciprofloxacin and metronidazole. She has been instructed to follow-up with Dr. Ramires and Dr. Archuleta. Discharge Plan Triage Chief Complaint: GI Bleed Other Complaint: Abd Pain ED Provider: Robel Jerry Dx/Rx/DC Orders Clinical Impression: Colitis, acute, Bleeding external hemorrhoids Instructions: ED Gastroenteritis, Bacterial (Adult), ED Hemorrhoids Prescriptions: New metronidazole [metronidazole] 500 MG tablet 500 mg PO Q8H Qty: 21 RF: 0 ciprofloxacin HCl [ciprofloxacin HCl] 500 MG tablet 500 mg PO BID Qty: 14 RF: 0 ondansetron [ondansetron] 4 MG tablet 4 mg PO Q8H PRN PRN (Reason: Nausea) Qty: 10 RF: 0 dicyclomine 10 MG capsule 20 mg PO TIDAC Qty: 20 RF: 0 No Action trazodone 150 MG tablet 150 mg PO QHS RF: 0 escitalopram oxalate 10 MG tablet 10 mg PO DAILY RF: 0 rosuvastatin 40 mg tablet 40 mg PO DAILY RF: 0 celecoxib 200 MG capsule 200 mg PO DAILY RF: 0 valacyclovir 500 MG tablet 500 mg PO DAILY RF: 0 cholecalciferol (vitamin D3) 1,000 UNIT tablet 1,000 unit PO DAILY RF: 0 tamoxifen 20 MG tablet 20 mg PO DAILY 90 Days Qty: 90 RF: 1 Primary Care Provider: Mike Shafer Referrals: Mike Shafer MD [Primary Care Provider] - 3-5 Days Stevie Archuleta MD [NON-STAFF] - 5-7 Days (Presented with bleeding hemorrhoids and has significant colitis. She was treated with ciprofloxacin and metronidazole. White count was elevated at 18.5 thousand.) Activity Restrictions/Additional Instructions: If you have significant pain return to the emergency department If you are passing blood clots per rectum return to the emergency department If you develop a fever greater than 100 and shaking chills return to the emergency department Disposition Disposition: Home, self care
[2021-03-18] MEDS: metroNIDAZOLE 500 MG Tablet PO (12:26)
[2021-03-18] MEDS: Ciprofloxacin 250 MG Tablet 500 MG PO (12:33)
== END 2021-03-18 12:35 | disposition home or self-care (01) ==
PROVIDERS: Emergency Provider Emergency Medicine; PCP Family Medicine
DX: K52.9 Noninfective gastroenteritis and colitis, unspecified (principal); K64.4 Residual hemorrhoidal skin tags; M19.90 Unspecified osteoarthritis, unspecified site; E78.5 Hyperlipidemia, unspecified; E66.9 Obesity, unspecified; Z79.899 Other long term (current) drug therapy; Z87.891 Personal history of nicotine dependence
CPT/HCPCS: 74177; 80048; 85025; 96360; 96361; 99285; J7030; Q9967

== ENCOUNTER → 2021-07-20 09:51 | Outpatient (CLI) | payer OTHER, SELFPAY ==
--- NOTE | 2021-07-20 09:52 | BI_ITS ---
MAMMOGRAPHY - BILATERAL SCREENING REASON FOR EXAM: Female, 65 years old. Routine annual screening examination. PERTINENT HISTORY: Personal history of breast cancer. Prior left lumpectomy. Grandmother with breast cancer. Aunt with breast cancer. TECHNIQUE: Digital bilateral breast wil (3D mammographic acquisition) in the CC and MLO projections. 2-D mediolateral oblique (MLO) and craniocaudad (CC) views of both breasts were obtained. CAD: Full Field Digital Mammography with Computer Added Detection was performed. COMPARISON: Comparison is made with prior study 07/19/2020 and 07/08/2019. FINDINGS: Breast Composition: There are scattered areas of fibroglandular density. There are no dominant masses or suspicious calcifications. Stable focal area of architectural distortion in the deep central portion of the left breast in keeping with prior lumpectomy. Stable small benign-appearing bilateral axillary lymph nodes. No other significant abnormalities are identified. There has been no significant change since the prior study. BI/SCRN MAMM (CAD)W/WIL BILAT IMPRESSION: Stable bilateral screening mammogram. Yearly follow-up mammogram recommended. (A) ASSESSMENT CATEGORY: BIRADS Category 2: Benign. A letter regarding these results will be sent to the patient by the facility within 30 days. Approximately 10% of breast cancers are not detected by mammography. A normal mammogram should not delay biopsy of a clinically suspicious abnormality. [id number] Electronically Signed: Douglas Hauser MD at 12:18 EDT , Service support ,
== END ==
PROVIDERS: PCP Family Medicine; Referring Provider Internal Medicine Medical Oncology; Visit Provider Internal Medicine Medical Oncology
DX: Z12.31 Encounter for screening mammogram for malignant neoplasm of breast (principal)
CPT/HCPCS: 77063; 77067

== ENCOUNTER → 2022-06-18 | Outpatient (CLI) | payer OTHER, SELFPAY ==
--- NOTE | 2022-06-18 09:23 | BI_ITS ---
MAMMOGRAPHY - BILATERAL DIAGNOSTIC REASON FOR EXAM: Female, 66 years old. Left breast lump. PERTINENT HISTORY: Personal history of breast cancer. Prior left lumpectomy and radiation treatment. Grandmother with breast cancer. Aunt with breast cancer. TECHNIQUE: Digital bilateral breast jose (3D mammographic acquisition) in the CC and MLO projections. 2-D mediolateral oblique (MLO) and craniocaudad (CC) views of both breasts were obtained. CAD: Full Field Digital Mammography with Computer Added Detection was performed. COMPARISON: Comparison is made with prior study dated 07/20/2021 and 07/19/2020. FINDINGS: Breast Composition: There are scattered areas of fibroglandular density. There are no dominant masses or suspicious calcifications. The patient is status post lumpectomy in the upper lateral aspect of the left breast with resultant architectural distortion. Stable benign appearing bilateral axillary lymph nodes. No other significant abnormalities are identified. There has been no significant change since the prior study. BI/DIAG MAMM W/CAD, BILAT IMPRESSION: Stable bilateral diagnostic mammogram. With the patient''s history of a palpable lump in the upper medial aspect of the left breast, targeted sonographic evaluation is recommended. ASSESSMENT CATEGORY: BIRADS Category 0: Incomplete. Need additional imaging evaluation. A letter regarding these results will be sent to the patient by the facility within 30 days. Approximately 10% of breast cancers are not detected by mammography. A normal mammogram should not delay biopsy of a clinically suspicious abnormality. Electronically Signed: Douglas Hauser MD at 10:24 EDT ,
--- NOTE | 2022-06-18 09:23 | US_ITS ---
STUDY: ULTRASOUND BREAST - LEFT REASON FOR EXAM: Female, 66 years old. Palpable lump left breast. TECHNIQUE: Axial and longitudinal images of the LEFT breast were performed with a high resolution ultrasound transducer. # OF IMAGES: 30 COMPARISON: Comparison is made with prior mammogram done earlier today. Comparison is also made with prior sonogram of the left breast dated 11/15/2016. FINDINGS: LEFT Breast: The upper inner quadrant of the left breast was examined with ultrasound. No sonographic abnormality is seen. US/Breast Limited Unilateral IMPRESSION: No sonographic abnormality is seen. ASSESSMENT CATEGORY: BIRADS Category 1: Negative. A letter regarding these results will be sent to the patient by the facility within 30 days. Electronically Signed: Douglas Hauser MD at 10:46 EDT ,
== END | disposition home or self-care (01) ==
PROVIDERS: PCP Family Medicine; Referring Provider Internal Medicine Medical Oncology; Visit Provider Internal Medicine Medical Oncology
DX: R92.2 Inconclusive mammogram (principal); N63.25 Unspecified lump in the left breast, overlapping quadrants
CPT/HCPCS: 76642; 77062; 77066; G0279

== ENCOUNTER → 2022-06-28 | Outpatient (CLI) | payer OTHER, SELFPAY ==
--- NOTE | 2022-06-28 09:49 | US_ITS ---
INDICATION: ABNORMAL LIVER FUNCTIONS -- ATTENTION TO LIVER SPLEEN EXAMINATION: Ultrasound US Abdomen Complete TECHNIQUE: Santos-scale and color Doppler imaging was performed of the abdomen. COMPARISON: None. FINDINGS: LIVER: There is increased heterogeneous echogenicity suggestive of for hepatic steatosis.. A simple cyst is visualized within the right lobe of the liver measuring 1.9 x 2.0 x 1.7 cm otherwise no focal hepatic lesion. No intrahepatic biliary ductal dilatation. The liver measures 18.7 cm and in length. There is no free fluid. GALLBLADDER AND BILIARY TREE: A hyperechoic focus is visualized along the anterior nondependent wall of the gallbladder measuring 0.7 cm, a second hypoechoic focus visualized measuring 0.6 cm represent a stone. No pericholecystic fluid or gallbladder wall thickening is demonstrated. The proximal common bile duct measures 0.4 cm, which is within normal limits for the patient''s age. SONOGRAPHIC FISH''S SIGN: Negative. PANCREAS: No focal abnormality is demonstrated in the pancreas. No pancreatic ductal dilatation. SPLEEN: The spleen is normal in size and homogeneous in echotexture. KIDNEYS: There is no hydronephrosis. No shadowing calculus, focal lesion, or perinephric collection is demonstrated. VESSELS: Submitted longitudinal images of the intra-abdominal aorta demonstrate no gross abnormalities and are unremarkable. The IVC is patent. US/Abdomen Complete IMPRESSION: Hepatic steatosis. Hyperechoic foci in the gallbladder could represent stones but no evidence of acute cholecystitis. Electronically Signed: Adan Seymour MD at 13:14 EDT ,
[2022-06-29 07:08] LABS: HEPATITIS B SURFACE AG Negative (Negative); Hepatitis B Core Ab Total Negative (Negative); Hepatitis C Ab <0.1 s/co ratio (0.0-0.9)
[2022-06-29 08:09] LABS: Hep B Surface Antibodies Non Reactive (.)
== END | disposition home or self-care (01) ==
PROVIDERS: PCP Family Medicine; Referring Provider Internal Medicine Medical Oncology; Visit Provider Internal Medicine Medical Oncology
DX: K76.0 Fatty (change of) liver, not elsewhere classified (principal); R79.89 Other specified abnormal findings of blood chemistry
CPT/HCPCS: 36415; 76700; 86704; 86705; 86706; 86707; 86803; 87340; 87350

== ENCOUNTER → 2022-07-09 | Outpatient (CLI) | payer OTHER, SELFPAY ==
--- NOTE | 2022-07-09 07:22 | US_ITS ---
STUDY: ABDOMINAL ULTRASOUND - ELASTOGRAPHY REASON FOR VISIT: Female, 66 years old. Abnormal liver function tests. TECHNIQUE: Liver stiffness measurements were obtained on a CardioDx RS 85 ultrasound machine using a CA 1-7 probe following the SRU guidelines. 3 measurements were obtained using a 2-D-SWE method. The IQR/M was 14% suggesting a quality data set. TECHNICAL QUALITY: Adequate. COMPARISON: Comparison is made with prior ultrasound of the right upper quadrant dated 06/28/2022. FINDINGS: Liver: Fatty infiltration of the liver. Median liver stiffness measured 15 kPa. US/Elastography Parenchyma/Organ IMPRESSION: Liver stiffness measures 15 kPa compatible with F3-F4 (Moderate to severe liver fibrosis) Metavir score. Electronically Signed: Douglas Hauser MD at 8:19 EDT ,
== END | disposition home or self-care (01) ==
PROVIDERS: PCP Family Medicine; Referring Provider Internal Medicine Medical Oncology; Visit Provider Internal Medicine Medical Oncology
DX: R94.5 Abnormal results of liver function studies (principal); R93.5 Abnormal findings on diagnostic imaging of other abdominal regions, including retroperitoneum
CPT/HCPCS: 76981

== ENCOUNTER → 2022-07-18 | Outpatient (CLI) | payer OTHER, SELFPAY | END | disposition home or self-care (01) | LOC: LABSPEC 15:37 | PROVIDERS: PCP Family Medicine; Visit Provider Family Medicine | DX: R30.0 Dysuria (principal) | CPT/HCPCS: 87077; 87086; 87088; 87186 ==

== ENCOUNTER → 2022-09-04 | Outpatient (CLI) | payer OTHER, SELFPAY ==
[2022-09-04 15:45] LABS: Mucous, Urine 0 SEEN /hpf (<or=2+); Red Blood Cells-Urine 0 SEEN /hpf (0-5); Squamous Epithelial Cells - UA 0 SEEN /hpf (5-10); White Blood Cells 0 SEEN /hpf (0-5)
[2022-09-04 16:10] LABS: Color, Urine Yellow (Yellow); Glucose, Dipstick Normal (Normal); Ketone-Dipstick Negative (Negative); Leukocyte Esterase-Dipstick Negative /ul (Negative); Nitrite-Dipstick Positive (Negative); Occult Blood-Urine Negative /ul (Negative); Protein-Dipstick Negative (Negative); Urine Bilirubin Dipstick Negative (Negative); Urine Clarity Clear (Clear); Urine Urobilinogen Normal (Normal)
[2022-09-04 16:18] LABS: Bacteria 1+ /hpf (None Seen)
[2022-09-04 16:22] LABS: Cholesterol 213 mg/dL (200); High Density Lipoprotein 35 mg/dL; Triglycerides 225 mg/dL; Very Low Density Lipoprotein 45 mg/dL (5-40)
[2022-09-04 16:37] LABS: Vitamin D,25 Hydroxy 39.9 ng/mL
== END | disposition home or self-care (01) ==
LOC: LAB 14:17
PROVIDERS: PCP Family Medicine; Referring Provider Nurse Practitioner Family; Visit Provider Nurse Practitioner Family
DX: E55.9 Vitamin D deficiency, unspecified (principal); R30.0 Dysuria
CPT/HCPCS: 36415; 80061; 81001; 82306; 87086; 87088; 87186

== ENCOUNTER → 2022-12-27 | Outpatient (CLI) | payer MEDICARE, SELFPAY | END | disposition home or self-care (01) | PROVIDERS: Referring Provider Internal Medicine Endocrinology, Diabetes & Metabolism; Visit Provider Internal Medicine Endocrinology, Diabetes & Metabolism | DX: R30.0 Dysuria (principal) | CPT/HCPCS: 87086; 87088 ==

== ENCOUNTER → 2023-02-20 | Outpatient (CLI) | payer MEDICARE, SELFPAY ==
--- NOTE | 2023-02-20 14:58 | US_ITS ---
INDICATION: UTI EXAMINATION: Ultrasound US Kidney(s) complete (eg, kidneys and bladder) TECHNIQUE: Santos scale and color doppler images were obtained of the kidneys and urinary bladder. COMPARISON: 06/28/2022 ultrasound. FINDINGS: RIGHT KIDNEY: 13.6 cm in length. No Hydronephrosis. No sonographic evidence of a renal stone. No evidence of a mass. Normal vascular flow demonstrated with color Doppler. LEFT KIDNEY: 12.0 cm in length. No Hydronephrosis. No sonographic evidence of a renal stone. No evidence of a mass. Normal vascular flow demonstrated with color Doppler. URINARY BLADDER: Unremarkable. Right ureteral jet not visualized. Left ureteral jet was visualized. US/Kidney and Bladder IMPRESSION: Unremarkable renal ultrasound. Electronically Signed: George Yanez DO at 22:25 EDT ,
--- NOTE | 2023-02-20 15:33 | BD_ITS ---
STUDY: DUAL ENERGY X-RAY ABSORPTIOMETRY / DXA REASON FOR EXAM: Female, 67 years old. Screening, post menopause, hx of vitamin D def TECHNIQUE: Bone Mineral Density (BMD) measurements of lumbar spine and bilateral hips were obtained. COMPARISON: Comparison is made with prior study dated March 14, 2011. FINDINGS: Lumbar Spine (L1-L4): g/cm2 (1.008) / T-score (-0.4) / Z-score (1.4) Findings are suggestive of normal bone density with a low fracture risk. Left Femur Total: g/cm2 (1.000) / T-score (0.5) / Z-score (1.7) Left Femoral Neck: g/cm2 (0.886) / T-score (0.3) / Z-score (1.8) Right Femur Total: g/cm2 (1.000) / T-score (0.5) / Z-score (1.7) Right Femoral Neck: g/cm2 (0.863) / T-score (0.1) / Z-score (1.6) The T-Scores on the most recent prior examination were: Lumbar Spine (L1-L4): There has been worsening of bone density since the previous examination. Left Femur Total: which represents a worsening of 2.2%. Right Femur Total: which represents an improvement of 2.1%. BD/Dexa Bone Density Study IMPRESSION: The patient is considered normal as outlined below according to World [employer] Organization (WHO) criteria with a low fracture risk. There has been worsening of bone density since the previous examination. Reference Information: The T-score is the number of standard deviations above or below the standard which is normal for young adults at their peak bone mineral density. The World Health Organization (WHO) interprets the T-scores as follows: Above -1 Normal bone density Between -1 and -2.5 Osteopenia Equal to / or below -2.5 Osteoporosis As a practical clinical guideline, osteopenia may be graded as follows: Mild -1 through -1.5 Moderate -1.6 through -2.0 Severe -2.1 through -2.4 The Z-score is the number of standard deviations above or below age-matched controls. A Z-score of less than -1.5 would be considered abnormal. References: 1. NIH Osteoporosis and Related Bone Diseases www osteo.org 2. International Society for Clinical Densitometry www iscd.org 3. National Osteoporosis Foundation www nof.org Electronically Signed: Douglas Hauser MD at 15:00 EDT ,
== END | disposition home or self-care (01) ==
PROVIDERS: PCP Family Medicine; Referring Provider Urology; Visit Provider Nurse Practitioner Family
DX: N39.0 Urinary tract infection, site not specified (principal); Z78.0 Asymptomatic menopausal state
CPT/HCPCS: 76770; 77080

== ENCOUNTER 2023-05-01 05:59 | Day surgery (SDC) | payer MEDICARE, SELFPAY ==
[2023-05-01] VITALS (7 sets, daily range): BP systolic 94–124; BP diastolic 58–77; PULSE 68–76; RESP 16; TEMP 36.7–37.2; O2SAT 92–94; BMI 33.7
--- NOTE | 2023-05-01 06:11 | EKG12_ITS ---
Test Reason : PRE-OP Blood Pressure : / mmHG Vent. 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
[2023-05-01 07:05] LABS: Hematocrit 44.9 % (37-47); Hemoglobin 14.4 g/dL (12.0-15.0); Mean Corp Hgb Conc 32.1 g/dL (32-36); Mean Corpuscular Hgb 30.1 pg (27.0-32.0); Mean Corpuscular Volume 93.9 fL (81-99); Mean Platelet Vol. 11.6 fl (6.2-12.0); Platelet Count 164 K/mm3 (150-450); RBC Distribution Width CV 13.1 % (11.6-14.6); RBC Distribution Width SD 45.1 fl (35.1-43.9); Red Blood Count 4.78 M/mm3 (4.2-5.4); White Blood Count 6.6 K/mm3 (4.4-11.0)
[2023-05-01 07:20] LABS: AST(SGOT) 34 U/L (15-37); Alanine Aminotransfer ALT/SGPT 50 U/L (13-56); Albumin, Serum 3.5 g/dL (3.2-5.0); Alkaline Phosphatase 107 U/L (45-117); Anion Gap 5 (5-15); BUN 22 mg/dL (7-18); Bilirubin, Direct 0.15 mg/dL (0.00-0.30); Calcium,Total 9.3 mg/dL (8.5-10.1); Chloride 107 mmol/L (98-107); Creatinine, Serum 0.84 mg/dL (0.55-1.02); EST Glomerular Filtration Rate 72 mL/min (>60); Est Glom Filt Rate - Afr Amer 87 mL/min (>60); Estimated Creatinine Clearance 50.38 ml/min; Globulin 3.6 g/dL (2.2-4.2); Glucose 93 mg/dL (74-106); Potassium 3.9 mmol/L (3.5-5.1); Protein, Total 7.1 g/dL (6.4-8.2); Sodium Level 141 mmol/L (136-145)
[2023-05-01] MEDS: Lactated Ringers 1,000 ML 15 ML IV (07:20)
--- NOTE | 2023-05-01 07:20 | HP.PCM_ITS ---
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 The cystoscopy was being done for her urinary tract infections and she also struggles with overactive bladder and is on Gemtesa. Informed consent was obtained for the procedure. [facility] Medical History (Updated 05/01/23 @ 07:[address] Chelsea Gilman MD) Alcohol use Arthritis BiPAP (biphasic positive airway pressure) dependence Bladder disease Breast cancer Cancer Cirrhosis Diabetes Diverticulitis Easy bruising Former smoker History of edema History of IBS History of stress test Hyperlipidemia IBS (irritable bowel syndrome) Obesity DOROTEO (obstructive sleep apnea) Rheumatoid arthritis SOB (shortness of breath) Urinary tract infection Vitamin D deficiency Wears glasses Home Medications trazodone 150 mg tablet 150 mg PO QHS 01/10/17 [History Last Taken Unknown] escitalopram oxalate 10 mg tablet 10 mg PO DAILY 02/25/17 [History Last Taken Unknown] rosuvastatin 40 mg tablet 40 mg PO DAILY 12/31/17 [History Last Taken Unknown] celecoxib 200 mg capsule 200 mg PO DAILY 05/30/20 [History Last Taken Unknown] cholecalciferol (vitamin D3) 25 mcg (1,000 unit) tablet 1,000 unit PO DAILY 05/30/20 [History Last Taken Unknown] valacyclovir 500 mg tablet 500 mg PO DAILY 05/30/20 [History Last Taken Unknown] cyclobenzaprine 5 mg tablet 5 mg PO DAILY PRN muscle spasm 12/10/21 [History Last Taken Unknown] ezetimibe 10 mg tablet (Zetia) 10 mg PO DAILY #90 tabs 01/27/23 [Rx Last Taken Unknown] tirzepatide 5 mg/0.5 mL subcutaneous pen injector (Mounjaro) 5 mg (0.5 mL) subcut QWEEK #2 mL 02/10/23 [Rx Last Taken Unknown] Allergy/AdvReac Type Severity Reaction Status Date / Time No Known Allergies Allergy Verified 04/24/23 13:50 Family History Mother CVA (cerebral vascular accident) Arthritis Heart disease Father Hypertension Heart disease Diabetes Other Angina at rest Asthma Breast cancer High cholesterol Myocardial infarction Surgical History (Updated 04/24/23 @ 13:59 by Cecelia Aguilar) History of section History of lumpectomy History of shoulder surgery History of tonsillectomy and adenoidectomy History of tubal ligation Social History Smoking Status: Former smoker Tobacco: How many years used: 20 how long ago did patient quit smokin, 1ppd second hand exposure: Yes alcohol intake: current alcohol intake frequency: a few times a month Alcohol type: beer substance use type: does not use what type of physical activity do you participate in: none ROS Constitutional Constitutional: Reports systems reviewed and no addt'l complaints, except as documented; Denies chills, fever(s) or headache(s) Eyes Eyes: Reports systems reviewed and no addt'l complaints, except as documented ENT HEENT: Reports systems reviewed and no addt'l complaints, except as documented Cardiovascular Cardiovascular: Denies abdominal pain, chest pain, dizziness or dyspnea Respiratory/Chest Respiratory/Chest: Denies chest congestion, cough, dyspnea or inability to speak Gastrointestinal Gastrointestinal: Denies abdominal pain, nausea or vomiting Genitourinary Genitourinary: Reports urinary frequency and urinary urgency Musculoskeletal Musculoskeletal: Reports systems reviewed and no addt'l complaints, except as documented Integumentary Integumentary: Reports systems reviewed and no addt'l complaints, except as documented Neurologic Neurologic: Reports systems reviewed and no addt'l complaints, except as documented Psychiatric Psychiatric: Reports systems reviewed and no addt'l complaints, except as documented Endocrine Endocrinology: Reports systems reviewed and no addt'l complaints, except as documented Hematologic/Lymphatic Hematologic/Lymphatic: Reports systems reviewed and no addt'l complaints, except as documented Allergic/Immunologic Allergic/Immunologic: Reports systems reviewed and no addt'l complaints, except as documented Vital Signs Vital Signs Vital Signs: 05/01/23 06:28 05/01/23 06:28 Temperature 98.0 F Temperature Source Temporal Pulse Rate 68 Respiratory Rate 16 Respiratory Pattern Normal Blood Pressure 124/58 H Blood Pressure Mean 80 Blood Pressure Source Monitor Blood Pressure Position Semi-Fowlers Blood Pressure Location Right Arm Pulse Ox 92 Oxygen Delivery Method Room Air Weight Weight: 81 kg Body Mass Index (BMI) 33.7 Physical Exam Const alert, oriented x3 and no apparent distress General Appearance: cooperative and comfortable HEENT normocephalic, head/scalp atraumatic, hearing grossly normal bilaterally, external ears normal and external nose normal Eyes General Eye: normal appearance of both eyes Neck supple General: trachea midline Lymph Lymphatic: no lymphedema noted Chest inspection of chest normal Resp normal respiratory effort, normal air movement and no retractions Effort and Inspection: able to speak in complete sentences and symmetric chest movement Cardio regular rate GI soft to palpation, non-tender and non-distended no CVA tenderness Back/Spine no CVA tenderness Extremity normal to inspection Skin no rashes or lesions noted, no wounds, no jaundice, no petechiae and no mottling Neuro oriented x3, CN's II-XII intact bilaterally and moves all extremities Psych mental status grossly normal, thought process normal, cooperative and affect normal Results Lab / Micro Data 05/01/23 06:50 05/01/23 06:50 Labs: Laboratory Results - last 24 hr 05/01/23 06:50: WBC 6.6, RBC 4.78, Hgb 14.4, Hct 44.9, MCV 93.9, MCH 30.1, MCHC 32.1, RDW Std Deviation 45.1 H, RDW Coeff of Krunal 13.1, Plt Count 164, MPV 11.6 Assessment & Plan Assessment/Plan (1) Lesion of bladder: PLAN: Plan cystoscopy with biopsy and fulguration she will complete antibiotics and follow up next week for results
--- NOTE | 2023-05-01 07:30 | BLA_PTH ---
PATIENT: PARVIZ GARCIA [place] [facility] [id number] AGE/SX: 67/F ROOM: RE05/01/[address]: Dr. Chelsea Gilman MD : 1955 BED: DIS: 05/01/2023 SPEC #: [id number] RECD: 05/01/23 08:17 STATUS: PRETTY MALINDA #: [id number] MARTINA: 05/01/23 07:[address]: Chelsea Gilman DEPT: SURGICAL PATHOLOGY RECD BY: Ольга Simms ENTERED: 05/01/23 10:47 SP TYPE: BLADDER BX OTHR DR: Dr. Freida Napier MD Tissues: Urinary bladder, NOS Procedures: Surgery Specimen Level IV HEADER OPERATION: Cysto, biopsy bladder with fulguration PRE-OP DIAGNOSIS: Bladder lesion TISSUE SUBMITTED: Bladder biopsy MICROSCOPIC DIAGNOSIS Urinary bladder lesion, biopsy: Chronic follicular cystitis. AM:juan 05/02/2023 MICROSCOPIC DESCRIPTION Slides are reviewed. GROSS DESCRIPTION Received in fixative is one container labeled with the patient's name and designated bladder biopsy. The specimen consists of two irregular fragments of light acosta soft tissue that in aggregate measure 0.3 x 0.2 x 0.1 cm. The specimen is totally submitted in one cassette. / SJ:juan 05/01/2023 TC:3 CPT: 68073
[2023-05-01 07:37] LABS: Partial Thromboplast Time 29.2 Seconds (24.1-36.2); Prothrombin Time (Protime)PT. 12.9 SECONDS (11.7-14.9)
[2023-05-01 08:20] LABS: Bedside Glucose 92 mg/dL (74-106)
--- NOTE | 2023-05-01 08:28 | DCINST_ITS ---
Discharge Instructions Diet Discharge Diet: No restrictions Activity Discharge Activity: Return to Normal Activity Dressing / Incision Call your doctor if you observe: Fever of 101 or Higher, Inability to urinate and Inability to have a bowel movement Follow Up Care Please Follow Up With: Chelsea Gilman MD When: the office will call her to set up appt for next week Test Results: Test results from this visit will be discussed in further detail at your follow- up appointment, if applicable. Discharge Plan Admission Attending Provider: Chelsea Gilman Primary Care Provider: Freida Napier Discharge Orders/Prescriptions Prescriptions: New oxycodone-acetaminophen [Percocet] 5-325 mg tablet 1 tab PO Q8H PRN (Reason: pain) 1 Days Qty: 3 0RF Continued cyclobenzaprine 5 mg tablet 5 mg PO DAILY PRN (Reason: muscle spasm) Patient Comments: TAKE 1 TABLET BY MOUTH DAILY NEEDED ezetimibe [Zetia] 10 mg tablet 10 mg PO DAILY Qty: 90 1RF trazodone 150 MG tablet 150 mg PO QHS escitalopram oxalate 10 MG tablet 10 mg PO DAILY rosuvastatin 40 mg tablet 40 mg PO DAILY celecoxib 200 MG capsule 200 mg PO DAILY valacyclovir 500 MG tablet 500 mg PO DAILY cholecalciferol (vitamin D3) 1,000 UNIT tablet 1,000 unit PO DAILY Mounjaro 5 mg/0.5 mL pen injector 5 mg subcut QWEEK Qty: 2 3RF Other Ambulatory Orders: 12 Lead EKG (Routine) Timeframe: [id number] Facility: [facility] - Location: Cardiovascular Services Ordered By: Dr. Sg South Referrals / Follow Up: Freida Napier MD [Primary Care Provider] - Disposition Disposition (needs filled in before D/C Order can be placed): Home, Self Care
[2023-05-01 09:03] LABS: Hemoglobin A1c 5.5 % (3.8-5.6)
--- NOTE | 2023-05-01 10:17 | PCM.OPRPT ---
Report of Operation Date of Procedure: 05/01/23 Pre-Operative Diagnosis: Bladder lesion, urinary tract infection Post-Operative Diagnosis: Same Surgery/Procedure Performed:: Cystoscopy with bladder biopsy x2 with fulguration Surgeon: Chelsea Gilman Type of Anesthesia: MAC Specimen's removed: Bladder biopsy x2 Description of Procedure: The patient is a 67-year-old female who underwent a cystoscopic evaluation in the office for recurrent urinary tract infections. 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 The patient agreed to proceed with biopsy under anesthesia with fulguration for tissue management. Informed consent was obtained. The patient was taken to the operating room and placed on the operating room table. Anesthesia monitored the head, neck, airway, IV access and vital signs throughout the case. Once anesthesia was appropriately administered, the patient was placed into dorsolithotomy position and was prepped and draped in usual sterile fashion. At this time the cystoscope was inserted through the urethra under direct visualization into the urinary bladder. The bladder mucosa in its entirety was visualized and the same lesion seen in the office was identified along with 1 other smaller area of concern. Flexible biopsy forceps were used for tissue biopsy and these areas were fulgurated for hemostatic control and tissue treatment. At the end of the procedure, hemostasis was obtained. The bladder was emptied and the cystoscope was removed. The patient was awakened and taken to the recovery room in good condition. There were no complications during this procedure. Grafts/Implants Used: None Complications None Admit VTE Documentation VTE Present on Admission: Yes VTE Mechan Device Prophylaxis: SCD's VTE Pharm Prophylaxis ordered?: No Reason prophylaxis not ordered:: Treatment Not Indicated
== END 2023-05-01 08:58 | disposition home or self-care (01) ==
LOC: SDC 05:59 → AC 06:00
PROVIDERS: Anesthesiology; PCP Family Medicine; Referring Provider Urology; Visit Provider Urology
PROC: 0TBB8ZX Excision of Bladder, Via Natural or Artificial Opening Endoscopic, Diagnostic (ICD-10-PCS; CPT 52214; principal; 2023-05-01 07:20)
DX: N30.20 Other chronic cystitis without hematuria (principal); M06.9 Rheumatoid arthritis, unspecified; K74.60 Unspecified cirrhosis of liver; E11.9 Type 2 diabetes mellitus without complications; N32.81 Overactive bladder; E78.00 Pure hypercholesterolemia, unspecified; G47.33 Obstructive sleep apnea (adult) (pediatric); E66.9 Obesity, unspecified; Z68.33 Body mass index [BMI] 33.0-33.9, adult; Z79.899 Other long term (current) drug therapy; Z87.891 Personal history of nicotine dependence
CPT/HCPCS: 52214; 00910; 80048; 80076; 82962; 83036; 85027; 85610; 85730; 88305; 93005; J7120; J2405

== ENCOUNTER → 2023-06-20 | Outpatient (CLI) | payer MEDICARE, SELFPAY ==
--- NOTE | 2023-06-20 07:57 | BI_ITS ---
MAMMOGRAPHY - BILATERAL SCREENING REASON FOR EXAM: Female, 67 years old. Routine annual screening examination. PERTINENT HISTORY: Personal history of breast cancer. Prior left lumpectomy and radiation treatment. Grandmother with breast cancer. Aunt with breast cancer. TECHNIQUE: Digital bilateral breast wil (3D mammographic acquisition) in the CC and MLO projections. 2-D mediolateral oblique (MLO) and craniocaudad (CC) views of both breasts were obtained. CAD: Full Field Digital Mammography with Computer Added Detection was performed. COMPARISON: Comparison is made with prior study dated June 18, 2022 and July 20, 2021. FINDINGS: Breast Composition: There are scattered areas of fibroglandular density. There are no dominant masses or suspicious calcifications. Stable architectural distortion in the upper lateral aspect of the left breast in keeping with the patient''s history of prior lumpectomy. No other significant abnormalities are identified. There has been no significant change since the prior study. BI/SCRN MAMM (CAD)W/WIL BILAT IMPRESSION: Stable bilateral screening mammogram. Yearly follow-up mammogram recommended. (A) ASSESSMENT CATEGORY: BIRADS Category 2: Benign. A letter regarding these results will be sent to the patient by the facility within 30 days. Approximately 10% of breast cancers are not detected by mammography. A normal mammogram should not delay biopsy of a clinically suspicious abnormality. [id number] Electronically Signed: Douglas Hauser MD at 9:06 EDT ,
== END | disposition home or self-care (01) ==
LOC: OPBI 07:56
PROVIDERS: PCP Family Medicine; Referring Provider Internal Medicine Medical Oncology; Visit Provider Internal Medicine Medical Oncology
DX: Z12.31 Encounter for screening mammogram for malignant neoplasm of breast (principal); Z85.3 Personal history of malignant neoplasm of breast
CPT/HCPCS: 77063; 77067

== ENCOUNTER → 2023-08-08 | Outpatient (CLI) | payer MEDICARE, SELFPAY ==
[2023-08-08 15:47] LABS: Cholesterol 149 mg/dL (200); High Density Lipoprotein 48 mg/dL; Triglycerides 110 mg/dL; Very Low Density Lipoprotein 22 mg/dL (5-40)
[2023-08-08 16:02] LABS: Microalbumin,Random Urine 21.6 mg/L (NO RANGE EST.)
== END | disposition home or self-care (01) ==
LOC: BFHLAB 11:12
PROVIDERS: PCP Family Medicine; Visit Provider Nurse Practitioner Family
DX: E11.9 Type 2 diabetes mellitus without complications (principal); E78.5 Hyperlipidemia, unspecified
CPT/HCPCS: 36415; 80061; 82043; 82570

== ENCOUNTER → 2024-01-16 | Outpatient (CLI) | payer MEDICARE, SELFPAY ==
--- NOTE | 2024-01-16 13:25 | US_ITS ---
INDICATION: PMB EXAMINATION: Ultrasound US Transvaginal Non-OB TECHNIQUE: Transvaginal (for optimal evaluation of the adnexa) pelvic ultrasound was performed. Grayscale, spectral waveform, and color flow Doppler evaluation of the adnexa. COMPARISON: FINDINGS: UTERUS: Anteverted. The uterus measures 7.3 x 4.9 x 4.2 cm. There is no uterine mass. The endometrial stripe measures 3.3 mm in AP diameter with possible small subcentimeter cystic nodular areas. RIGHT OVARY: 2.0 x 1.6 x 1.5 cm. Non-enlarged, normal echogenicity. There is normal arterial inflow and venous outflow present in the right ovary. LEFT OVARY: 3.6 x 2.4 x 2.3 cm. Non-enlarged, normal echogenicity. There is normal arterial inflow and venous outflow present in the left ovary. FREE FLUID: None. US/Transvaginal Non- IMPRESSION: There are small cystic nodular areas in the endometrium. Electronically Signed: Man Grimes DO at 16:24 EDT ,
== END | disposition home or self-care (01) ==
PROVIDERS: PCP Nurse Practitioner Family; Referring Provider Urology; Visit Provider Urology
DX: N93.9 Abnormal uterine and vaginal bleeding, unspecified (principal)
CPT/HCPCS: 76830

== ENCOUNTER → 2024-04-09 | Outpatient (CLI) | payer MEDICARE, SELFPAY ==
[2024-04-09 11:48] LABS: Vitamin D,25 Hydroxy 36.4 ng/mL
[2024-04-09 11:53] LABS: ALB/GLOB Ratio 1.1 RATIO (0.9-2.4); AST(SGOT) 40 U/L (15-37); Alanine Aminotransfer ALT/SGPT 55 U/L (13-56); Albumin, Serum 3.9 g/dL (3.2-5.0); Alkaline Phosphatase 125 U/L (45-117); Anion Gap 4 (5-15); BUN 21 mg/dL (7-18); BUN/Creat Ratio 27.2 RATIO (10-20); Calcium,Total 9.3 mg/dL (8.5-10.1); Chloride 106 mmol/L (98-107); Cholesterol 147 mg/dL (200); Creatinine, Serum 0.77 mg/dL (0.55-1.02); EST Glomerular Filtration Rate 79 mL/min (>60); Est Glom Filt Rate - Afr Amer 96 mL/min (>60); Globulin 3.6 g/dL (2.2-4.2); Glucose 100 mg/dL (74-106); High Density Lipoprotein 60 mg/dL; Potassium 4.1 mmol/L (3.5-5.1); Protein, Total 7.5 g/dL (6.4-8.2); Sodium Level 140 mmol/L (136-145); Thyroid Stim Hormone (TSH) 1.03 uIU/mL (0.358-3.74); Triglycerides 77 mg/dL; Very Low Density Lipoprotein 15 mg/dL (5-40)
[2024-04-09 12:13] LABS: Microalbumin,Random Urine 19.1 mg/L (NO RANGE EST.); Microalbumin:Creatinine Ratio 10.7 mg/g CRE (<30 mg/g CRE)
== END | disposition home or self-care (01) ==
LOC: PAVLAB 10:37
PROVIDERS: PCP Nurse Practitioner Family; Referring Provider Nurse Practitioner Family; Visit Provider Nurse Practitioner Family
DX: E11.65 Type 2 diabetes mellitus with hyperglycemia (principal); E66.01 Morbid (severe) obesity due to excess calories; Z68.41 Body mass index [BMI] 40.0-44.9, adult; E55.9 Vitamin D deficiency, unspecified; E78.00 Pure hypercholesterolemia, unspecified
CPT/HCPCS: 36415; 80053; 80061; 82043; 82306; 82570; 84443

== ENCOUNTER → 2024-07-22 | Outpatient (CLI) | payer MEDICARE, SELFPAY ==
--- NOTE | 2024-07-22 08:45 | BI_ITS ---
MAMMOGRAPHY - BILATERAL SCREENING 3-D TOMOSYNTHESIS REASON FOR EXAM: Female, 68 years old. Z12.31 - Encounter for screening mammogram for malignant neopl... PERTINENT HISTORY: No significant family history. TECHNIQUE: 2-D mammograms and 3-D Tomosynthesis of the breast (s) were performed. CAD was performed. COMPARISON: 06/20/2023 FINDINGS: The breast composition is heterogeneously dense that can obscure small breast masses. Scattered benign calcifications are seen. No dense spiculated masses or suspicious microcalcifications are identified. Architectural distortion within the lower outer quadrant left breast at mid depth and focal compression views recommended for further evaluation.. There is no skin thickening or retraction. BI/SCRN MAMM (CAD)W/WIL BILAT IMPRESSION: Further imaging evaluation is recommended. ASSESSMENT CATEGORY: BIRADS Category 0: Incomplete. Need additional imaging evaluation as above. A letter regarding these results will be sent to the patient by the facility within 30 days. FOLLOW UP RECOMMENDATION: Additional imaging recommended as above. (E) Approximately 10% of breast cancers are not detected by mammography. A normal mammogram should not delay biopsy of a clinically suspicious abnormality. Electronically Signed: Balwinder Larkin MD at 13:26 EDT ,
== END | disposition home or self-care (01) ==
LOC: OPBI 08:45
PROVIDERS: PCP Nurse Practitioner Family; Referring Provider Internal Medicine Medical Oncology; Visit Provider Internal Medicine Medical Oncology
DX: Z12.31 Encounter for screening mammogram for malignant neoplasm of breast (principal)
CPT/HCPCS: 77063; 77067

== ENCOUNTER → 2024-07-29 | Outpatient (CLI) | payer MEDICARE, SELFPAY ==
--- NOTE | 2024-07-29 09:02 | US_ITS ---
STUDY: ULTRASOUND BREAST - LEFT REASON FOR EXAM: Female, 68 years old. Abnormal screening mammogram. TECHNIQUE: Axial and longitudinal images of the LEFT breast were performed with a high resolution ultrasound transducer. # OF IMAGES: 16 COMPARISON: Comparison is made with prior mammogram done earlier today as well as July 22, 2024. Comparison is also made with prior study dated June 18, 2022. FINDINGS: LEFT Breast: The lower outer quadrant of the left breast was examined with ultrasound. No sonographic abnormality is seen. US/Breast Limited Unilateral IMPRESSION: No sonographic abnormality is seen. ASSESSMENT CATEGORY: BIRADS Category 1: Negative. A letter regarding these results will be sent to the patient by the facility within 30 days. Electronically Signed: Douglas Hauser MD at 11:01 EDT ,
--- NOTE | 2024-07-29 09:02 | BI_ITS ---
MAMMOGRAPHY - UNILATERAL DIAGNOSTIC: LEFT BREAST REASON FOR EXAM: Female, 68 years old. Abnormal screening mammogram. PERTINENT HISTORY: Non-contributory. TECHNIQUE: Compression spot views of the left breast were obtained in the mediolateral oblique and craniocaudad projections. CAD: Full Field Digital Mammography with Computer Added Detection was performed. COMPARISON: Comparison is made with prior study dated July 22, 2024. FINDINGS: Breast Composition: The breasts are heterogeneously dense, which may obscure small masses. The area of architectural distortion seen on the mammogram is not seen at this time. Correlation with ultrasound recommended. No other significant abnormalities are identified. BI/DIAG MAMM W/CAD, UNILAT IMPRESSION: Negative unilateral diagnostic mammogram. Sonographic correlation recommended. ASSESSMENT CATEGORY: BIRADS Category 0: Incomplete. Need additional imaging evaluation. A letter regarding these results will be sent to the patient by the facility within 30 days. Approximately 10% of breast cancers are not detected by mammography. A normal mammogram should not delay biopsy of a clinically suspicious abnormality. Electronically Signed: Douglas Hauser MD at 10:36 EDT ,
--- OUTSIDE RECORDS SUMMARY | 2024-07-29 09:41 | XMS RPT_ITS | CCD ---
Author Organization [facility] Inform ion Partnership [facility] Care Team Providers Care Automatic Centrifugal Station Operator Name Role Phone Sherie Fernandez LPN Unavailable Unavailab le York, Ilene L Unavailable Unavailable York, Ilene L Unavailable Unavailable York, Ilene L Unavailable Unavailable York, Ilene L Unavailable Unavailable York, Ilene L Unavailable Unavailable Gail Brannon Unavailable Unavailable Gail Brannon Unavailable Unavailable Fast DO, Analilia A Unavailable Anjali Mendez Unavailable Unavailable Unavailable Unavailable JUAN CARLOS VALLADARES MD Primary Care Physician [phone] GINA MCKEON MD Attending Unavailable JUAN CARLOS VALLADARES MD Primary Care Unavailable Medications Current Medications Medication Drug Class(es) Dates Sig (Normalized) Sig (Original) 0.5 ML tirzepatide 10 MG/ML Auto-Injector [Mounjaro] (1 source) Start: 02-06-2024 Mounjaro 5 mg/0.5 mL subcutaneous solution INJECT THE CONTENTS OF 1 PEN UNDER THE SKIN ONCE WEEKLY Start Date: 02/06/24 Status: Ordered escitalopram 10 mg oral tablet (10 sources) Serotonin Reuptake Inhibitor Start: 03-27-2021 escitalopram 10 mg oral tablet Dose : 10 mg = 1 tab(s), Oral, qDay, # 30 tab(s), 0 Refill(s) Start Date: 03/27/21 Status: Ordered Start: 02-16-2016 End: 02-23-2015 take 1 tablet by mouth once daily LEXAPRO, 10MG (Oral Tablet) 1 tab Tablet(s) qd for 90 days Quantity: 90 {Tablet} Refills: 3 Ordered: 16-Feb-2016 Anjali Mendez Start : 16-Feb-2016 End : 23-Feb-2015 Active take 1 tablet by beto once daily LEXAPRO 10 MG TABS One tablet by mouth daily ESCITALOPRAM OXALATE [id number] Yandel Hughes ezetimibe 10 mg oral tablet (1 source) Dietary Cholesterol Absorption Inhibitor Start: 02-06-2024 ezetimibe 10 mg ora l tablet Dose : 10 mg = 1 tab(s), Oral, qDay, # 30 tab(s), 0 Refill(s) Start Date: 02/06/24 Status: Ordered Myrbetriq (1 source) beta3-Adrenergic Agonist Start: 02-06-2024 Myrbetriq Oral, qDay , 0 Refill(s) Start Date: 02/06/24 Status: Ordered rosuvastatin calcium 40 mg oral tablet (10 sources) HMG-CoA Reductase Inhibitor Start: 02-16-2016 rosuvastatin 40 mg oral tablet Dose : 40 mg = 1 tab(s), Oral, qDay, # 30 tab(s), 0 Refill(s) Start Date: 03/27/21 Status: Ordered take 1 tablet by mouth once derrek y CRESTOR TABS One tablet by mouth daily ROSUVASTATIN CALCIUM TABS [id number] Yandel Hughes traZODone hydrochloride 150 mg oral tablet (10 sources) Serotonin Reuptake Inhibitor Start: 02-19-2016 traZODone 150 mg ora l tablet Dose : 150 mg = 1 tab(s), Oral, qHS, # 90 tab(s), 0 Refill(s) Start Date: 03/27/21 Status: Ordered valACYclovir 500 mg oral tablet (10 sources) Herpesvirus Nucleoside Analog DNA Polymerase Inhibitor, Herpes Simplex Virus Nucleoside Analog DNA Polymerase Inhibitor, Herpes Zoster Virus Nucleoside Analog DNA Polymerase Inhibitor Start: 03-27-2021 valACYclovir 500 mg oral tablet 0 Refill(s) Start Date: 03/27/21 Status: Ordered Start: 02-16-2016 End: 05-16-2016 VALTREX, 500MG (Oral Tablet) 1 tab Tablet qd unless breakout take 2 tabs for 90 days Quantity: 100 {Tablet} Refills: 0 Ordered: 16-Feb-2016 Fast DO, Analilia A Fast DO, Analilia A Start : 16-Feb-2016 End : 16-May-2016 Inactive Vitamin D3 (1 source) Start: 06-22-2021 Vitamin D3 Dos e : 1,000 unit(s) = 1 tab(s), Oral, Daily, 0 Refill(s) Start Date: 03/27/21 Status: Ordered Completed/Discontinued Medications Medication Drug Class(es) Dates Sig (Normalized) Sig (Original) bifidobacterium infantis 4 mg oral capsule (1 source) Start: 08-07-2010 End: 07-22-2011 take 1 capsule by mouth once daily ALIGN (Oral Capsule) 1 Capsule daily for 0 days Quantity: 30 {Capsule} Refills: 0 Ordered: 22-Jul-2011 Reshma Kidd RN Start : 07-Aug-2010 End : 22-Jul-2011 Inactive 12 hr buPROPion hydrochloride 90 mg / naltrexone hydrochloride 8 mg extended release oral tablet (7 sources) Opioid Antagonist, Aminoketone Start: 11-22-2016 CONTRAVE 8-90 MG [id number] One tab every 12 hrs NALTREXONE-BUPROP ION HCL [id number] Ilenelizzette Elam Start: 11-22-2016 CONTRAVE 8-90 MG [id number] One tab every 12 hrs NALTREXONE-BUPROPION HCL [id number] Ilene Elam celecoxib 200 mg oral capsule (16 sources) Nonsteroidal Anti-inflammatory Drug Start: 07-21-2015 CELEBREX 200 MG C APS One tab daily CELECOXIB [id number] Ilene Elam take 1 tablet by mouth once derrek y CELEBREX 400 MG CAPS One tablet by mouth daily CELECOXIB [id number] Yandel Hughes Comment on above: approved for 24 baldev hs chlordiazePOXIDE hydrochloride 5 mg / clidinium bromide 2.5 mg oral capsule (1 source) Anticholinergic, Benzodiazepine Start: 012 take 1 capsule by mouth three times daily as needed LIBRAX, 2.5-5MG (Oral Capsule) 1 Capsule 1-2 caps tid, prn for 90 days Quantity: 540 {Capsule} Refills: 1 Ordered: 16-Mar-2012 Anjali Mendez Start : 16-Mar-2012 Active Comments: before meals and at bedtime Comment on above: before meals and at bedtime cholecalciferol 0.05 mg oral capsule (1 source) Vitamin D Start: 015 End: 015 take 2 tablets by mouth once daily in the morning VITAMIN D3, 2000UNIT (Oral Capsule) 2 tabs Capsule qam for 30 days Quantity: 60 {Capsule} Refills: 0 Ordered: 27-Jun-2015 Fast DO, Analilia A Fast DO, Analilia A Start : 27-Jun-2015 End : 27-Jul-2015 Inactive cyclobenzaprine hydrochloride 10 mg oral tablet (2 sources) Muscle Relaxant Start: 016 take 1 tablet by mouth three times daily as needed CYCLOBENZAPRINE HCL, 10MG (Oral Tablet) 1 (one) Tablet tid, prn for 30 days Quantity: 30 {Tablet} Refills: 1 Ordered: 16-Feb-2016 Fast DO, Analilia A Fast DO, Analilia A Start : 16-Feb-2016 Active Comments: thirty Start: 07-27-2013 End: 02-06-2015 take 1 tablet by mouth three times daily as needed CYCLOBENZAPRINE HCL, 10MG (Oral Tablet) 1 (one) Tablet tid, prn for 30 days Quantity: 90 {Tablet} Refills: 1 Ordered: 06-Feb-2015 Anjali Mendez Start : 27-Jul-2013 End : 06-Feb-2015 Discontinued Comment on above: thirty dicyclomine hydrochloride 20 mg oral tablet (16 sources) Anticholinergic Start: 11-22-2016 DICYCLOMINE HCL 20 MG TABS One tab daily as needed DICYCLOMINE HCL [id number] Ilene Elam Start: 10-23-2011 End: 10-23-2011 take 1 tablet by mouth four times daily as needed DICYCLOMINE HCL, 20MG (Oral Tablet) 1 Tablet qid prn for 0 days Quantity: 60 {Tablet} Refills: 0 Ordered: 23-Oct-2011 Anjali Mendez Start : 23-Oct-2011 End : 23-Oct-2011 Discontinued take 1 tablet by beto th twice daily DICYCLOMINE HCL 20 MG TABS One tablet by mouth twice daily DICYCLOMINE HCL [id number] Yandel Hughes doxycycline hyclate 50 mg oral capsule (15 sources) Tetracycline-class Drug End: 05-14-2017 take 1 tablet by mouth twice daily DOXYCYCLINE HYCLATE 50 MG CAPS One tablet by mouth twice daily DOXYCYCLINE HYCLATE [id number] Ilene Elam estradiol 0.1 mg/ml vaginal cream (1 source) Estrogen End: 10-31-2015 ESTRACE, 0.1MG/GM (Vaginal Cream) pea size amount 3 times weekly (0.1 MG/GM) End : 31-Oct-2015 Discontinued ezetimibe 10 mg / simvastatin 40 mg oral tablet (1 source) HMG-CoA Reductase Inhibitor, Dietary Cholesterol Absorption Inhibitor Start: 03-16-2012 End: 03-16-2012 take 1 tablet by mouth once daily VYTORIN, 10-40MG (Oral Tablet) 1 (one) Tablet qd for 90 days Quantity: 90 {Tablet} Refills: 3 Ordered: 16-Mar-2012 Fast DO, Analilia A Fast DO, Analilia A Start : 16-Mar-2012 End : 16-Mar-2012 Discontinued fluticasone propionate 0.05 mg/actuat metered dose nasal spray (1 source) Corticosteroid Start: 11-18-2011 take 1 spray(s) nasal route once daily as needed FLONASE, 50MCG/ACT (Nasal Suspension) 1 spray each nostril Suspension qd, prn for 90 days Quantity: 90 {Suspension} Refills: 3 Ordered: 18-Nov-2011 Anjali Mendez Start : 18-Nov-2011 Active furosemide 20 mg oral tablet (1 source) Loop Diuretic Start: 01-16-2010 End: 07-22-2011 take 1 tablet by mouth once daily FUROSEMIDE, 20MG (Oral Tablet) 1 (one) Tablet qd for 0 days Quantity: 10 {Tablet} Refills: 0 Ordered: 22-Jul-2011 Reshma Kidd RN Start : 16-Jan-2010 End : 22-Jul-2011 Inactive HYOSCYAMINE SULFATE TBDP (10 sources) Start: 11-22-2016 NULEV TBDP as needed HYOSCYAMINE SULFATE TBDP [id number] Ilene Elam Start: 11-22-2016 NULEV TBDP as needed HYOSCYAMINE SULFATE TBDP [id number] Ilene Elam Start: 10-23-2011 HYOMAX-SL, 0.1 25MG (Sublingual Tablet Sublingual) 1 acosta Tab Sublingual tid, prn for 0 days Quantity: 270 {Tab_Sublingual} Refills: 3 Ordered: 23-Oct-2011 Elisabeth Zurita LPN Start : 23-Oct-2011 Active Start: 05-10-2009 End: 05-10-2009 NULEV, 0.125MG (SL SL Tab) 1 tab prn for 0 days Refills: 0 Ordered: 10-May-2009 Reshma Kidd RN Start : 10-May-2009 End : 10-May-2009 Discontinued Comments: This order discontinued per [facility]. End: 07-22-2011 NULEV, 0.125MG (SL SL Tab) 1 tab tid for 0 days Refills: 0 Ordered: 05-Jul-2009 Reshma Kidd RN End : 22-Jul-2011 Discontinued Comments: This order discontinued per [facility]. Comment on above: This order discontin ued per [facility]. levocetirizine dihydrochloride 5 mg oral tablet (1 source) Histamine-1 Receptor Antagonist Start: End: take 1 tablet by mouth once daily as needed XYZAL, 5MG (Oral Tablet) 1 Tablet qd, prn for 0 days Quantity: 90 {Tablet} Refills: 3 Ordered: 27-Jul-2013 Fast DO, Analilia A Fast DO, Analilia A Start : 27-Jul-2013 End : 27-Jul-2013 Discontinued naproxen 500 mg oral tablet (1 source) Nonsteroidal Anti-inflammatory Drug Start: End: take 1 tablet by mouth twice daily NAPROSYN, 500MG (Oral Tablet) 1 Tablet bid for 14 days Quantity: 30 {Tablet} Refills: 0 Ordered: 01-Jan-2013 Reshma Kidd RN Start : 01-Jan-2013 End : 15-Jan-2013 Inactive norethindrone acetate 5 mg oral tablet (1 source) End: NORETHINDRONE ACETATE, 5MG (Oral Tablet) for 0 days Refills: 0 Ordered: 22-Jul-2011 Reshma Kidd RN End : 22-Jul-2011 Inactive phentermine hydrochloride 37.5 mg oral tablet (1 source) Sympathomimetic Amine Anorectic Start: 014 End: take 1 tablet by mouth once daily ADIPEX-P, 37.5MG (Oral Tablet) 1 Tablet qd for 0 days Quantity: 30 {Tablet} Refills: 0 Ordered: 06-Feb-2015 Anjali Mendez Start : 24-Nov-2013 End : 06-Feb-2015 Discontinued Comments: BMI - 36.5 thirty Comment on above: BMI - 36.5 thirty potassium chloride 10 meq extended release oral capsule (1 source) Start: End: take 2 capsules by mouth once daily POTASSIUM CHLORIDE CR, 10MEQ (Oral Capsule Extended Release) 2 (two) Capsule ER qd for 0 days Quantity: 20 {Capsule_ER} Refills: 0 Ordered: 22-Jul-2011 Reshma Kidd RN Start : 16-Jan-2010 End : 22-Jul-2011 Inactive simvastatin 80 mg oral tablet (1 source) HMG-CoA Reductase Inhibitor Start: End: take 1 tablet by mouth once daily SIMVASTATIN, 80MG (Oral Tablet) 1 (one) Tablet qd for 90 days Quantity: 90 {Tablet} Refills: 3 Ordered: 05-Nov-2011 Fast DO, Analilia A Fast DO, Analilia A Start : 05-Nov-2011 End : 05-Nov-2011 Discontinued terbinafine 250 mg oral tablet (1 source) Allylamine Antifungal Start: End: take 1 tablet by mouth once daily LAMISIL, 250MG (Oral Tablet) 1 Tablet qd for 0 days Quantity: 90 {Tablet} Refills: 0 Ordered: 05-Nov-2011 Anjali Mendez Start : 22-Jul-2011 End : 05-Nov-2011 Inactive Comments: use daily for 12 weeks-- tell pt changed mind no pulse dosing Comment on above: use daily for 12 wee ks-- tell pt changed mind no pulse dosing zolpidem tartrate 6.25 mg extended release oral tablet (1 source) gamma-Aminobutyric Acid-ergic Agonist Start: End: take 1 tablet by mouth once daily AMBIEN CR, 6.25MG (Oral Tablet Extended Release) 1 (one) Tablet ER qd for 0 days Quantity: 90 {Tablet_ER} Refills: 0 Ordered: 22-Jul-2011 Reshma Kidd RN Start : 22-Feb-2009 End : 22-Jul-2011 Inactive Problems Active Problems Problem Classification Problem Date Documented Da te Episodic/Chronic Abdominal pain (4 sources) Flank pain 10-31-2015 Episodic Deficiency and other anemia (3 sources) Anemia; Translations: [Anemia] Resolved: 07-05-2009 08-22-2015 Episodic Diabetes mellitus without complication (8 sources) Impaired fasting glycemia; Translations: [Impaired fasting glucose] 10-31-2015 Episodic Disorders of lipid metabolism (15 sources) Hypercholesterolemia ; Translations: [Hypercholesterolemi a] 10-31-2015 Chronic Comment on above: diet and ex Immunizations and screening for infectious disease (5 sources) Requires varicella vaccination; Translations: [Need for zoster vaccination] Resolved: 11-05-2011 10-31-2015 Episodic Menopausal disorders (2 sources) Postmenopausal bleeding; Translations: [Postmenopausal bleeding] Onset: 02-06-2024 Chronic Mood disorders (12 sources) Depressive disorder; Translations: [Depressive disorder] 10-31-2015 Chronic Comment on above: chronic stable-lia nue present regimen Mycoses (2 sources) Onychomycosis; Translations: [Onychomycosis] 10-31-2015 Episodic Nonmalignant breast conditions (8 sources) Fibrocystic disease of breast; Translations: [Diffuse cystic mastopathy of unspecified breast] 05-28-2012 Chronic Nutritional deficiencies (13 sources) Vitamin D deficiency; Translations: [Vitamin D deficiency, unspecified] 10-31-2015 Chronic Other and unspecified benign neoplasm (3 sources) Polyp of colon; Translations: [Colon polyp] 10-31-2015 Episodic Other connective tissue disease (6 sources) Swelling of limb; Translations: [Swelling of limb] 10-31-2015 Episodic Other diseases of veins and lymphatics (2 sources) Venous stasis 10-31-2015 Episodic Other gastrointestinal disorders (6 sources) Irritable bowel syndrome; Translations: [Irritable bowel syndrome] 10-31-2015 Chronic Comment on above: worsening diarrhea w ith stress similar to previous IBS Other hematologic conditions (3 sources) Erythrocytosis; Translations: [Polycythemia] 10-31-2015 Episodic Other non-traumatic joint disorders (5 sources) Shoulder pain; Translations: [Shoulder pain] 10-31-2015 Episodic Other nutritional; endocrine; and metabolic disorders (8 sources) Obesity; Translations: [Obesity] 10-31-2015 Chronic Comment on above: on adepex x 6wklittl e wt loss, old habits Other nutritional; endocrine; and metabolic disorders (3 sources) Hypercalcemia; Translations: [Hypercalcemia (275.42)] Chronic Other nutritional; endocrine; and metabolic disorders (3 sources) Weight gain; Translations: [Weight gain] 10-31-2015 Episodic Other upper respiratory disease (5 sources) Allergic rhinitis; Translations: [Allergic rhinitis] 10-31-2015 Chronic Comment on above: chronic stable-lia nue present regimen Residual codes; unclassified (2 sources) Exposure to carbon monoxide; Translations: [Carbon monoxide exposure] 10-31-2015 Episodic Residual codes; unclassified (1 source) Past history of procedure; Translations: [Colonoscopy] 10-31-2015 Episodic Comment on above: 200604-27-09 NEG Residual codes; unclassified (2 sources) Family history of diabetes mellitus; Translations: [Family history of diabetes mellitus] 10-31-2015 Episodic Residual codes; unclassified (9 sources) Sleep disorder; Translations: [Sleep disorder] 10-31-2015 Episodic Comment on above: chronic stable-lia nue present regimen Residual codes; unclassified (2 sources) Personal history of other drug therapy; Translations: [Personal history of other drug therapy] Onset: 02-06-2024 Episodic Spondylosis; intervertebral disc disorders; other back problems (2 sources) Low back pain; Translations: [Low Back Pain (Renamed from LBP (low back pain))] 10-31-2015 Episodic Unclassified (9 sources) Obstructive sleep apnea of adult; Translations: [Obstructive sleep apnea, adult] Onset: 06-18-2017 06-18-2017 Chronic Comment on above: wearing cpap Unclassified (20 sources) Past or Other Problems Problem Classification Problem Date Documented Da te Episodic/Chronic Cancer of breast (6 sources) History of malignant neoplasm of breast; Translations: [Personal history of malignant neoplasm of breast] Onset: 06-18-2017 06-18-2017 Episodic Other lower respiratory disease (6 sources) Lung mass; Translations: [Other nonspecific abnormal finding of lung field] Onset: 06-18-2017 06-18-2017 Episodic Other nutritional; endocrine; and metabolic disorders (1 source) Hypercalcemia; Translations: [Hypercalcemia] Resolved: 07-27-2013 07-27-2013 Chronic Unclassified (2 sources) coccydynia 10-31-2015 Unclassified (1 source) Deliveries (Parity); Translations: [Deliveries (Parity)] 10-31-2015 Comment on above: 2 Unclassified (2 sources) family hx of clotting disorder 10-31-2015 Comment on above: get prothrombin muta tion, mthfr Unclassified (1 source) Pregnancies (); Translations: [Pregnancies ()] 10-31-2015 Comment on above: 2 Unclassified (2 sources) flank pain- check labs and consider ct Resolved: 10-31-2009 10-31-2009 Results Test Name Value Interpretation Reference Range Facility Final Surgical Pathology Rep sumi 02-10-2024 Final Surgical Pathology Report . Pathology Reports Accession: Collected Date/Time: Received Date/Time: Pathologist: [id number] 02/06/2024 14:11 EDT 02/09/2024 09:35 EDT CLAUDIO MONSALVE MD Final Surgical Pathology Report DIAGNOSIS: ENDOMETRIUM, BIOPSY: - FRAGMENTS OF MUCUS, WITH HISTIOCYTES AND SCANT FRAGMENTS OF ENDOMETRIAL GLANDULAR TISSUE QUANTITATIVELY INSUFFICIENT FOR EVALUATION. CONSIDER REPEAT BIOPSY. CLINICAL INFORMATION: ABNORMAL BLEEDING, PMB (POSTMENOPAUSAL BLEEDING), HISTORY OF HIGH RISK MEDICATION TREATMENT Procedure: ENDOMETRIAL BX Preoperative diagnosis: ABNORMAL BLEEDING Postoperative diagnosis: SAME ABOVE SPECIMEN: A ENDOMETRIUM GROSS DESCRIPTION: All parts labelled with patient name and [id number] Received in formalin labeled undesignated multiple wispy white and mucinous tissue fragments aggregating 0.1 cm. Given to cytology for processing. TS-1 Megan Estrada, Grossing Enamel Burner/ Dr. Claudio Monsalve, Pathologist Dictated by Megan Estrada MICROSCOPIC DESCRIPTION: The microscopic examination is performed, except in the case of Gross Only. Electronically Signed by Pathology Report verified by [facility] CLAUDIO MONSALVE Sign out Date: 02/10/2024 16:28 Performing Lab: [facility], [address] [place] [address] Pathology Dept Disclaimer If ancillary studies were utilized, the following Laboratory Developed Test (LDT) disclaimer will apply: Under CLIA requirements, [facility] is qualified to perform high complexity testing. For all ancillary stains, positive and negative controls stain appropriately. Performance characteristics of immunohistochemical and chromogenic in-situ hybridization tests have been determined by [facility]. These tests are used for clinical purposes, They should not be regarded as investigational or for research. Normal [facility] ([place]) Office Visit: DOROTEO & lung nod lovely 07-14-2017 Documentation of current medications (procedure) Done Invalid Interpretation Code [facility] Work Phone: Protein mass conc Done Invalid Interpretation Code [facility] Work Phone: Tobacco smoking status NHIS Never Invalid Interpretation Code [facility] Work Phone: Tobacco smoking status NHIS Former smoker Invalid Interpretation Code [facility] Work Phone: Tobacco use CP Former smoker Invalid Interpretation Code [facility] Work Phone: Office Visit: New patient/OS Aon 06-18-2017 Documentation of current medications (procedure) Done Invalid Interpretation Code [facility] Work Phone: Fall risk assessment No Invalid Interpretation Code [facility] Work Phone: Protein mass conc Done [facility] Work Phone: Tobacco smoking status NHIS Never Invalid Interpretation Code [facility] Work Phone: Tobacco smoking status NHIS Former smoker [facility] Work Phone: Tobacco use CPHS Former smoker Invalid Interpretation Code [facility] Work Phone: HgA1C , Office ([phone])Ordere d By: Analilia Fast on 10-31-2015 HbA1c (Bld) [Mass fraction] 5.9 % Normal 4.6 - 7.1 [facility] Work Phone: HgA1C , Office ([phone])Ordere d By: Analilia Fast on 06-27-2015 HbA1c (Bld) [Mass fraction] 5.9 % Normal 4.6 - 7.1 [facility] Work Phone: HgA1C , Office ([phone])Ordere d By: Analilia Fast on 02-06-2015 HbA1c (Bld) [Mass fraction] 5.9 % Normal 4.6 - 7.1 [facility] Work Phone: Office Visiton 05-28-2012 Protein mass conc Done [facility] Work Phone: Tobacco smoking status NHIS former smoker [facility] Work Phone: HgA1C , Office ([phone])Ordere d By: Diana Hercules on 03-16-2012 HbA1c (Bld) [Mass fraction] 5.6 % Normal 4.6 - 7.1 [facility] Work Phone: CBC WITH MANUAL DIFF ([phone]) Ordered By: Pipe Line Inspector on 04-03-2010 Basophils (Bld) [#/Vol] 0.1 10*3/uL Normal 0.0-0.2 [facility] Work Phone: Comment on above: PATIENT NOT FASTINGP ERFORMED BY: CB [facility] Eecwci[address] [facility] Online[facility] access hospital [id number] Information: [id number] Basophils/100 WBC (Bld) 1 % Normal 0-3 [facility] Work Phone: Comment on above: PATIENT NOT FASTINGP ERFORMED BY: CB [facility] Ahbnis[address] RoadDuin [place] [id number] Information: [id number] Eosinophils (Bld) [#/Vol] 0.3 10*3/uL Normal 0.0-0.4 [facility] Work Phone: Comment on above: PATIENT NOT FASTINGP ERFORMED BY: CB [facility] Tqymqr89[address] RoadDuin [place] [id number] Information: [id number] Eosinophils/100 WBC (Bld) 3 % Normal 0-7 [facility] Work Phone: Comment on above: PATIENT NOT FASTINGP ERFORMED BY: CB [facility] Msscow[address] Cam[address] RoadDuCritical access hospital [id number] Information: [id number] Erythrocyte distribution width (RBC) [Ratio] 13.3 % Normal 11.7-15.0 [facility] Work Phone: Comment on above: PATIENT NOT FASTINGP ERFORMED BY: L[facility] [id number] Information: [id number] Hematocrit (Bld) [Volume fraction] 43.3 % Normal 34.0-44.0 [facility] Work Phone: Comment on above: PATIENT NOT FASTINGP ERFORMED BY: LIA Cotalin6[address] [facility] [id number] Information: [id number] Hemoglobin (Bld) [Mass/Vol] 14.9 g/dL Normal 11.5-15.0 [facility]; [facility] Work Phone: Comment on above: PATIENT NOT FASTINGP ERFORMED BY: LIA [address] [id number] Information: [id number] Immature granulocytes (Bld) [#/Vol] 0.0 10*3/uL Normal 0.0-0.1 [facility]; [facility] Work Phone: Comment on above: PATIENT NOT FASTINGP ERFORMED BY: LIA Cotalin6370 [facility] [id number] Information: [id number] Immature granulocytes/100 WBC (Bld) 0 % Normal 0-1 [facility]; [facility] Work Phone: Comment on above: PATIENT NOT FASTINGP ERFORMED BY: LIA [facility] CenterBmlghp2385 [facility] [id number] Information: [id number] Lymphocytes (Bld) [#/Vol] 2.7 10*3/uL Normal 0.7-4.5 [facility]; [facility] Work Phone: Comment on above: PATIENT NOT FASTINGP ERFORMED BY: LIA [place] [id number] [facility] [id number] Information: [id number] Lymphocytes/100 WBC (Bld) 29 % Normal 14-46 [facility]; [facility] Work Phone: Comment on above: PATIENT NOT FASTINGP ERFORMED BY: LIA Barnard6[address] [facility] [id number] Information: [id number] MCH (RBC) [Entitic mass] 31.1 pg Normal 27.0-34.0 [facility] Medicine; [facility] Work Phone: Comment on above: PATIENT NOT FASTINGP ERFORMED BY: LIA [place] [id number] [facility] [id number] Information: [id number] MCHC (RBC) [Mass/Vol] 34.4 g/dL Normal 32.0-36.0 [facility]; [facility] Work Phone: Comment on above: PATIENT NOT FASTINGP ERFORMED BY: LIA Middleton[address] [id number] Information: [id number] MCV (RBC) [Entitic vol] 90 fL Normal 80-98 [facility]; [facility] Work Phone: Comment on above: PATIENT NOT FASTINGP ERFORMED BY: LIA Middleton Vfyzwd3155 [facility] [id number] Information: [id number] Monocytes (Bld) [#/Vol] 0.7 10*3/uL Normal 0.1-1.0 [facility]; [facility] Work Phone: Comment on above: PATIENT NOT FASTINGP ERFORMED BY: LIA LabCo[facility] CenterDshniu7562 [facility] [id number] Information: [id number] Monocytes/100 WBC (Bld) 8 % Normal 4-13 [facility]; [facility] Work Phone: Comment on above: PATIENT NOT FASTINGP ERFORMED BY: LIA [facility]6370 [facility] [id number] Information: [id number] Neutrophils (Bld) [#/Vol] 5.4 10*3/uL Normal 1.8-7.8 [facility]; [facility] Work Phone: Comment on above: PATIENT NOT FASTINGP ERFORMED BY: LIA Barnard6370 [facility] [id number] Information: [id number] Neutrophils/100 WBC (Bld) 59 % Normal 40-74 [facility]; [facility] Work Phone: Comment on above: PATIENT NOT FASTINGP ERFORMED BY: LIA LabCo Sasffd9062 [facility] [id number] Information: [id number] Platelets (Bld) [#/Vol] 270 10*3/uL Normal 140-415 [facility]; [facility] Work Phone: Comment on above: PATIENT NOT FASTINGP ERFORMED BY: LIA Barnard6370 [facility] [id number] Information: [id number] RBC (Bld) [#/Vol] 4.79 10*6/uL Normal 3.80-5.10 Compr ehensive Internal Medicine; [facility] Work Phone: Comment on above: PATIENT NOT FASTINGP ERFORMED BY: LIA Middleton Anwxkm3175 [facility] [id number] Information: [id number] WBC (Bld) [#/Vol] 9.2 10*3/uL Normal 4.0-10.5 Compre [facility]; [facility] Work Phone: Comment on above: PATIENT NOT FASTINGP ERFORMED BY: LIA [facility] Gavbzx3460 [facility] [id number] Information: [id number] METABOLIC PANEL, COMPREHENSI VE ([id number])Ordered By: Pipe Line Inspector on 04-03-2010 Albumin [Mass/Vol] 4.1 g/dL Normal 3.5-5.5 [facility]; [facility] Work Phone: Comment on above: PATIENT NOT FASTINGP ERFORMED BY: LIA [facility] Zkzfwi1764 Camacho RoadDublin [place] [id number] Albumin/Globulin [Mass ratio] 2.0 {ratio} Normal 1.1-2.5 [facility]; [facility] Work Phone: Comment on above: PATIENT NOT FASTINGP ERFORMED BY: CB [facility] Tkyhbd8220 Camacho RoadDublin [place] [id number] ALP [Catalytic activity/Vol] 78 U/L Normal 25-150 [facility]; [facility] Work Phone: Comment on above: PATIENT NOT FASTINGP ERFORMED BY: CB [facility] Casudq7865 Camacho RoadDublin [place] [id number] ALT [Catalytic activity/Vol] 43 U/L Abnormal 0-40 [facility]; [facility] Work Phone: Comment on above: PATIENT NOT FASTINGP ERFORMED BY: CB [facility] Qrjnru9439 [address] RoadDublin [place] [id number] AST [Catalytic activity/Vol] 26 U/L Normal 0-40 [facility]; [facility] Work Phone: Comment on above: PATIENT NOT FASTINGP ERFORMED BY: CB [facility] Jlarcj2562 [address] RoadDublin [place] [id number] Bilirubin [Mass/Vol] 0.2 mg/dL Normal 0.0-1.2 [facility]; [facility] Work Phone: Comment on above: PATIENT NOT FASTINGP ERFORMED BY: CB [facility] Qbjkoq9502 [address]acho RoadDublin [place] [id number] Calcium [Mass/Vol] 9.2 mg/dL Normal 8.7-10.2 [facility]; [facility] Work Phone: Comment on above: PATIENT NOT FASTINGP ERFORMED BY: CB [facility] Hdgxwl0824 [address] RoadDublin [place] [id number] Chloride [Moles/Vol] 105 mmol/L Normal 97-108 [facility]; [facility] Work Phone: Comment on above: PATIENT NOT FASTINGP ERFORMED BY: CB [facility] Kmadvy[address] [employer] [id number] CO2 [Moles/Vol] 25 mmol/L Normal 20-32 [facility]; [facility] Work Phone: Comment on above: PATIENT NOT FASTINGP ERFORMED BY: CB [facility] Iodcgu[address] [facility] [id number] Creatinine [Mass/Vol] 0.80 mg/dL Normal 0.57-1.00 [facility]; [facility] Work Phone: Comment on above: PATIENT NOT FASTINGP ERFORMED BY: CB [facility] Ihqfnh54[address] [facility] [id number] GFR/1.73 sq M.predicted among blacks MDRD (S/P/Bld) [Vol rate/Area] mL/min/{1.73_m2} Normal [facility]; [facility] Work Phone: Comment on above: Note: Persistent red uction for 3 months or more in an eGFR<60 mL/min/1.73 m2 defines CKD. Patients with eGFR values>/=60 mL/min/1.73 m2 may also have CKD if evidence of persistentproteinuria is present. Additional information may be found [email or web address]. PATIENT NOT FASTINGP ERFORMED BY: CB [facility] Xhmpuh[address] [employer] [id number] GFR/1.73 sq M.predicted MDRD (S/P/Bld) [Vol rate/Area] mL/min/{1.73_m2} Normal [facility]; [facility] Work Phone: Comment on above: PATIENT NOT FASTINGP ERFORMED BY: CB [facility] Umgmhr1523 [address] [employer] [id number] Globulin (S) [Mass/Vol] 2.1 g/dL Normal 1.5-4.5 [facility]; [facility] Work Phone: Comment on above: PATIENT NOT FASTINGP ERFORMED BY: CB [facility] Kndoyd0140 [facility] [id number] Glucose [Mass/Vol] 90 mg/dL Normal 65-99 [facility]; [facility] Work Phone: Comment on above: PATIENT NOT FASTINGP ERFORMED BY: LIA Barnard[address] [facility] [id number] Potassium [Moles/Vol] 3.7 mmol/L Normal 3.5-5.2 [facility]; [facility] Work Phone: Comment on above: PATIENT NOT FASTINGP ERFORMED BY: LIA Middleton Thgtud9064 [address] [facility] [id number] Protein [Mass/Vol] 6.2 g/dL Normal 6.0-8.5 [facility]; [facility] Work Phone: Comment on above: PATIENT NOT FASTINGP ERFORMED BY: LIA Middleton Cfhabp0665 [address] [facility] [id number] Sodium [Moles/Vol] 141 mmol/L Normal 135-145 [facility]; [facility] Work Phone: Comment on above: PATIENT NOT FASTINGP ERFORMED BY: LIA Middleton Nbftkx0087 [address] [facility] [id number] Urea nitrogen [Mass/Vol] 23 mg/dL Normal 5-26 [facility]; [facility] Work Phone: Comment on above: PATIENT NOT FASTINGP ERFORMED BY: LIA LabJanuary Bobmhd5195 [address] [facility] [id number] Urea nitrogen/Creatini ne [Mass ratio] 29 mg/mg Abnormal 8-27 [facility]; [facility] Work Phone: Comment on above: PATIENT NOT FASTINGP ERFORMED BY: LIA LabJanuaryrp Etjubk[address] [facility] [id number] PT (Prothrobim Time) (32782) Ordered By: Pipe Line Inspector on 04-03-2010 INR Coag (PPP) [Relative time] 1.0 {INR} Normal 0.8-1.2 [facility]; [facility] Work Phone: Comment on above: Reference interval i s for non-anticoagulated patients..Suggested INR therapeutic range for Vitamin Kantagonist therapy:Standard Dose (moderate intensitytherapeutic range): 2.0 - 3.0Higher intensity therapeutic range 2.5 - 3.5 PATIENT NOT FASTINGP ERFORMED BY: [facility] Anqpsn6277 [facility] [id number] PT Coag (PPP) [Time] 10.0 s Normal 8.7-11.5 [facility]; [facility] Work Phone: Comment on above: PATIENT NOT FASTINGP ERFORMED BY: [facility] Gcncoc8855 [facility]Critical [facility] [id number] PTT (Activated Partial Throm boplastin Time) (90907)Ordered By: Pipe Line Inspector on 04-03-2010 aPTT Coag (PPP) [Time] 26 s Normal 24-33 [facility]; [facility] Work Phone: Comment on above: This test has not be en validated for monitoring unfractionated heparintherapy. aPTT-based therapeutic ranges for unfractionated heparintherapy have not been established. For general guidelines onHeparin monitoring, refer to the [facility] Directory of Services. PATIENT NOT FASTINGP ERFORMED BY: [facility] MedicalM[facility] HospitalApjbic[address] [employer] [id number] Vital Signs Date Time Vital Sign Value Performing Clinician Facility 07-14-2017 07:06-0400 BMI (Body Mass Index) 37.31 kg/m2 Ilene Elam [facility] Work Phone: 07-14-2017 07:06-0400 Body Temperature 98.1 [degF] Ilenelizzette Elam [facility] Work Phone: 07-14-2017 07:06-0400 BP Diastolic 77 mm[Hg] Ilene Elam [facility] Work Phone: 07-14-2017 07:06-0400 BP Systolic 113 mm[Hg] Ilene Elam [facility] Work Phone: 07-14-2017 07:06-0400 Height 157.48 cm Ilene York [facility] Work Phone: 07-14-2017 07:06-0400 Pulse (Heart Rate) 74 /min Ilene York [facility] Work Phone: 07-14-2017 07:06-0400 Respiratory Rate 18 /min Ilene York [facility] Work Phone: 07-14-2017 07:06-0400 Weight 92.53 kg Ilene Rupeetalk [facility] Work Phone: 06-18-2017 05:40-0400 BMI (Body Mass Index) 37.49 kg/m2 Ilene Rupeetalk [facility] Work Phone: 06-18-2017 05:40-0400 Body Temperature 97.5 [degF] Ilene Rupeetalk [facility] Work Phone: 06-18-2017 05:40-0400 BP Diastolic 87 mm[Hg] Ilene York [facility] Work Phone: 06-18-2017 05:40-0400 BP Systolic 125 mm[Hg] Ilene York [facility] [place] Work Phone: 06-18-2017 05:40-0400 Height 157.48 cm Ilene Rupeetalk [facility] Work Phone: 06-18-2017 05:40-0400 Pulse (Heart Rate) 75 /min Ilene York [facility] Work Phone: 06-18-2017 05:40-0400 Respiratory Rate 18 /min Ilene York [facility] [place] Work Phone: 06-18-2017 05:40-0400 Weight 92.99 kg Ilene Rupeetalk [facility] [place] Work Phone: 10-31-2015 08:10-0500 Body height 154.94 cm Anjali Flinner [facility]; [facility] Work Phone: 10-31-2015 08:10-0500 Body mass index (BMI) [Ratio] 38.17 kg/m2 Anjali Andrea [facility]; [facility] Work Phone: 10-31-2015 08:10-0500 Body surface area Derived from formula 1.9 m2 Anjali Andrea [facility]; [facility] Work Phone: 10-31-2015 08:10-0500 Body temperature 97.9 [degF] Anjali Estrellasilvia [facility]; [facility] Work Phone: Comment on above: Method: Temporal 10-31-2015 08:10-0500 Body weight 91.63 kg Anjali Andrea [facility]; [facility] Work Phone: 10-31-2015 08:10-0500 Diastolic blood pressure 80 mm[Hg] Anjali Andrea [facility]; [facility] Work Phone: Comment on above: Patient Position: Sitting; Cuff Location : Left Arm; Cuff Size: Large 10-31-2015 08:10-0500 Heart rate 69 /min Anjali Andrea [facility]; [facility] Work Phone: Comment on above: Pattern: Regular 10-31-2015 08:10-0500 Respiratory rate 15 /min Anjali Andrea [facility]; [facility] Work Phone: Comment on above: Pattern: Unlabored 10-31-2015 08:10-0500 SaO2% (BldA) [Mass fraction] 97 % Anjali Andrea [facility]; [facility] Work Phone: Comment on above: Room air 10-31-2015 08:10-0500 Systolic blood pressure 124 mm[Hg] Anjali Andrea [facility]; [facility] Work Phone: Comment on above: Patient Position: Sitting; Cuff Location : Left Arm; Cuff Size: Large 06-27-2015 08:05-0400 Body height 154.94 cm Anjali [place] [facility]; [facility] Work Phone: 06-27-2015 08:05-0400 Body mass index (BMI) [Ratio] 38.36 kg/m2 Anjali Andrea [facility]; [facility] Work Phone: 06-27-2015 08:05-0400 Body surface area Derived from formula 1.9 m2 Anjali Andrea [facility]; [facility] Work Phone: 06-27-2015 08:05-0400 Body temperature 98.1 [degF] Anjali Andrea [facility]; [facility] Work Phone: Comment on above: Method: Temporal 06-27-2015 08:05-0400 Body weight 92.08 kg Anjali Andrea [facility]; [facility] Work Phone: 06-27-2015 08:05-0400 Diastolic blood pressure 80 mm[Hg] Anjali Mendez [facility]; [facility] Work Phone: Comment on above: Patient Position: Sitting; Cuff Location : Left Arm; Cuff Size: Large 06-27-2015 08:05-0400 Heart rate 72 /min Anjali Mendez [facility]; [facility] Work Phone: Comment on above: Pattern: Regular 06-27-2015 08:05-0400 Respiratory rate 16 /min Anjali Mendez [facility]; [facility] Work Phone: Comment on above: Pattern: Unlabored 06-27-2015 08:05-0400 SaO2% (BldA) [Mass fraction] 95 % Anjali Mendez [facility]; [facility] Work Phone: Comment on above: Room air 06-27-2015 08:05-0400 Systolic blood pressure 112 mm[Hg] Anjali Mendez [facility]; [facility] Work Phone: Comment on above: Patient Position: Sitting; Cuff Location : Left Arm; Cuff Size: Large 02-06-2015 11:47-0400 Body height 154.94 cm Anjali Andrea [facility]; [facility] Work Phone: 02-06-2015 11:47-0400 Body mass index (BMI) [Ratio] 37.41 kg/m2 Anjali Estrellalilatess Cristofer [facility]; [facility] Work Phone: 02-06-2015 11:47-0400 Body surface area Derived from formula 1.88 m2 Anjali Estrellasilvia [facility]; [facility] Work Phone: 02-06-2015 11:47-0400 Body temperature 98.3 [degF] Anjali Estrellalilatess [facility]; [facility] Work Phone: Comment on above: Method: Oral 02-06-2015 11:47-0400 Body weight 89.81 kg Anjali Estrellasilvia [facility]; [facility] Work Phone: 02-06-2015 11:47-0400 Diastolic blood pressure 80 mm[Hg] Anjali Andrea [facility]; [facility] Work Phone: Comment on above: Patient Position: Sitting; Cuff Location : Left Arm; Cuff Size: Large 02-06-2015 11:47-0400 Heart rate 72 /min Anjali Estrellasilvia [facility]; [facility] Work Phone: Comment on above: Pattern: Regular 02-06-2015 11:47-0400 Respiratory rate 16 /min Anjali Estrellasilvia [facility]; [facility] Work Phone: Comment on above: Pattern: Unlabored 02-06-2015 11:47-0400 Systolic blood pressure 116 mm[Hg] Anjali Estrellasilvia [facility]; [facility] Work Phone: Comment on above: Patient Position: Sitting; Cuff Location : Left Arm; Cuff Size: Large 11-24-2013 15:20-0500 Body height 154.94 cm Elisabeth Zurita LPN [facility]; [facility] Work Phone: 11-24-2013 15:20-0500 Body mass index (BMI) [Ratio] 36.51 kg/m2 Elisabeth Zurita LPN [facility]; [facility] Work Phone: 11-24-2013 15:20-0500 Body surface area Derived from formula 1.86 m2 Elisabeth Zurita LPN [facility]; [facility] Work Phone: 11-24-2013 15:20-0500 Body temperature 97.9 [degF] Elisabeth Zurita LPN [facility]; [facility] Work Phone: Comment on above: Method: Oral 11-24-2013 15:20-0500 Body weight 87.66 kg Elisabeth Zurita LPN [facility]; [facility] Work Phone: 11-24-2013 15:20-0500 Diastolic blood pressure 74 mm[Hg] Elisabeth Zurita LPN [facility]; [facility] Work Phone: Comment on above: Patient Position: Sitting; Cuff Location : Left Arm; Cuff Size: Standard 11-24-2013 15:20-0500 Heart rate 80 /min Elisabeth Zurita LPN [facility]; [facility] Work Phone: Comment on above: Pattern: Regular 11-24-2013 15:20-0500 SaO2% (BldA) [Mass fraction] 96 % Elisabeth Zurita LPN [facility]; [facility] Work Phone: Comment on above: Room air 11-24-2013 15:20-0500 Systolic blood pressure 110 mm[Hg] Elisabeth Zurita LPN [facility]; [facility] Work Phone: Comment on above: Patient Position: Sitting; Cuff Location : Left Arm; Cuff Size: Standard 11-01-2013 15:11-0500 Body height 156.21 cm Analilia A Fast DO Work Phone: [facility]; [facility] Work Phone: 11-01-2013 15:11-0500 Body mass index (BMI) [Ratio] 36.99 kg/m2 Analilia A Fast DO Work Phone: [facility]; [facility] Work Phone: 11-01-2013 15:11-0500 Body surface area Derived from formula 1.9 m2 Analilia A Fast DO Work Phone: [facility]; [facility] Work Phone: 11-01-2013 15:11-0500 Body temperature 98.2 [degF] Analilia A Fast DO Work Phone: [facility]; [facility] Work Phone: Comment on above: Method: Oral 11-01-2013 15:11-0500 Body weight 90.27 kg Analilia A Fast DO Work Phone: [facility]; [facility] Work Phone: 11-01-2013 15:11-0500 Diastolic blood pressure 86 mm[Hg] Analilia A Fast DO Work Phone: [facility]; [facility] Work Phone: Comment on above: Patient Position: Sitting; Cuff Location : Left Arm; Cuff Size: Large 11-01-2013 15:11-0500 Heart rate 98 /min Analilia A Fast DO Work Phone: [facility]; [facility] Work Phone: Comment on above: Pattern: Regular 11-01-2013 15:11-0500 Respiratory rate 16 /min Analilia A Fast DO Work Phone: [facility]; [facility] Work Phone: Comment on above: Pattern: Unlabored 11-01-2013 15:11-0500 Systolic blood pressure 102 mm[Hg] Analilia A Fast DO Work Phone: [facility]; [facility] Work Phone: Comment on above: Patient Position: Sitting; Cuff Location : Left Arm; Cuff Size: Large 09-28-2013 11:27-0500 Body height 156.21 cm Albina Acuna [facility]; [facility] Work Phone: 09-28-2013 11:27-0500 Body mass index (BMI) [Ratio] 38.37 kg/m2 Albina Gut[facility]lim[facility]; [facility] Work Phone: 09-28-2013 11:27-0500 Body surface area Derived from formula 1.93 m2 Albina Acuna CMA [facility]; [facility] Work Phone: 09-28-2013 11:27-0500 Body temperature 98.4 [degF] Albina Acuna [employer] [facility]; [facility] Work Phone: Comment on above: Method: Oral 09-28-2013 11:27-0500 Body weight 93.64 kg Albina Acuna [facility]; [facility] Work Phone: 09-28-2013 11:27-0500 Diastolic blood pressure 74 mm[Hg] Albina Acuna [facility]; [facility] Work Phone: Comment on above: Patient Position: Sitting; Cuff Location : Left Arm; Cuff Size: Standard 09-28-2013 11:27-0500 Heart rate 87 /min Albina Acuna [facility]; [facility] Work Phone: Comment on above: Pattern: Regular 09-28-2013 11:27-0500 Respiratory rate 16 /min Albina Acuna [facility]; [facility] Work Phone: Comment on above: Pattern: Unlabored 09-28-2013 11:27-0500 SaO2% (BldA) [Mass fraction] 98 % Albina Acuna [facility]; [facility] Work Phone: Comment on above: Room air 09-28-2013 11:27-0500 Systolic blood pressure 124 mm[Hg] Albnia Acuna [facility]; [facility] Work Phone: Comment on above: Patient Position: Sitting; Cuff Location : Left Arm; Cuff Size: Standard 07-27-2013 14:28-0400 Body height 156.21 cm Anjali Mendez [facility]; [facility] Work Phone: 07-27-2013 14:28-0400 Body mass index (BMI) [Ratio] 37.73 kg/m2 Anjali Mendez [facility]; [facility] Work Phone: 07-27-2013 14:28-0400 Body surface area Derived from formula 1.91 m2 Anjali Mendez [facility]; [facility] Work Phone: 07-27-2013 14:28-0400 Body temperature 97.6 [degF] Anjali Mendez [facility]; [facility] Work Phone: 07-27-2013 14:28-0400 Body weight 92.08 kg Anjali Mendez [facility]; [facility] Work Phone: 07-27-2013 14:28-0400 Diastolic blood pressure 62 mm[Hg] Anjali Mendez [facility]; [facility] Work Phone: Comment on above: Patient Position: Sitting; Cuff Location : Left Arm; Cuff Size: Large 07-27-2013 14:28-0400 Heart rate 76 /min Anjali Mendez [facility]; [facility] Work Phone: Comment on above: Pattern: Regular 07-27-2013 14:28-0400 Respiratory rate 16 /min Anjali Mendez [facility]; [facility] Work Phone: Comment on above: Pattern: Unlabored 07-27-2013 14:28-0400 Systolic blood pressure 114 mm[Hg] Anjali Estrellasilvia [facility]; [facility] Work Phone: Comment on above: Patient Position: Sitting; Cuff Location : Left Arm; Cuff Size: Large 11-24-2012 14:31-0500 Body height 154.94 cm Gloria Steffen [facility]; [facility] Work Phone: 11-24-2012 14:31-0500 Body mass index (BMI) [Ratio] 34.81 kg/m2 Gloria Bourne [facility]; [facility] Work Phone: 11-24-2012 14:31-0500 Body surface area Derived from formula 1.82 m2 Gloria Bourne [facility]; [facility] Work Phone: 11-24-2012 14:31-0500 Body temperature 99.1 [degF] Gloria Bourne [facility]; [facility] Work Phone: Comment on above: Method: Tympanic 11-24-2012 14:31-0500 Body weight 83.58 kg Gloria [facility] Work Phone: 11-24-2012 14:31-0500 Diastolic blood pressure 64 mm[Hg] Gloria [facility]; [facility] Work Phone: Comment on above: Patient Position: Sitting; Cuff Location : Left Arm; Cuff Size: Standard 11-24-2012 14:31-0500 Heart rate 64 /min Gloria Bour[facility]; [facility] Work Phone: Comment on above: Pattern: Regular 11-24-2012 14:31-0500 Respiratory rate 16 /min Gloria Bour[facility]; [facility] Work Phone: Comment on above: Pattern: Unlabored 11-24-2012 14:31-0500 Systolic blood pressure 106 mm[Hg] Gloria Bour[facility]; [facility] Work Phone: Comment on above: Patient Position: Sitting; Cuff Location : Left Arm; Cuff Size: Standard 10-23-2012 10:02-0500 Body height 154.94 cm Anjali [facility] Work Phone: 10-23-2012 10:02-0500 Body mass index (BMI) [Ratio] 35.14 kg/m2 nAjali [facility]; [facility] Work Phone: 10-23-2012 10:02-0500 Body surface area Derived from formula 1.83 m2 Anjali [facility] Work Phone: 10-23-2012 10:02-0500 Body temperature 96.6 [degF] Anj[facility] Work Phone: 10-23-2012 10:02-0500 Body weight 84.37 kg Anjali Mendez [facility]; [facility] Work Phone: 10-23-2012 10:02-0500 Diastolic blood pressure 70 mm[Hg] Anjali Andrea [facility]; [facility] Work Phone: Comment on above: Patient Position: Sitting; Cuff Location : Left Arm; Cuff Size: Large 10-23-2012 10:02-0500 Heart rate 74 /min Anjali Mendez [facility]; [facility] Work Phone: Comment on above: Pattern: Regular 10-23-2012 10:02-0500 Respiratory rate 16 /min Anjali Mendez [facility]; [facility] Work Phone: Comment on above: Pattern: Unlabored 10-23-2012 10:02-0500 Systolic blood pressure 102 mm[Hg] Anjali Mendez [facility]; [facility] Work Phone: Comment on above: Patient Position: Sitting; Cuff Location : Left Arm; Cuff Size: Large 08-19-2012 16:08-0500 Body height 154.94 cm Elly Cruz RN [facility]; [facility] Work Phone: 08-19-2012 16:08-0500 Body mass index (BMI) [Ratio] 33.25 kg/m2 Elly Cruz [facility]; [facility] Work Phone: 08-19-2012 16:08-0500 Body surface area Derived from formula 1.79 m2 Elly Cruz RN [facility]; [facility] Work Phone: 08-19-2012 16:08-0500 Body temperature 98.6 [degF] Elly Cruz [facility]; [facility] Work Phone: Comment on above: Method: Oral 08-19-2012 16:08-0500 Body weight 79.83 kg Elly [facility] Work Phone: 08-19-2012 16:08-0500 Diastolic blood pressure 76 mm[Hg] Elly L Long RN [facility]; [facility] Work Phone: Comment on above: Patient Position: Sitting; Cuff Location : Left Arm; Cuff Size: Standard 08-19-2012 16:08-0500 Heart rate 68 /min Elly Cruz [facility]; [facility] Work Phone: Comment on above: Pattern: Regular 08-19-2012 16:08-0500 Respiratory rate 16 /min Elly Cruz RN [facility]; [facility] Work Phone: Comment on above: Pattern: Unlabored 08-19-2012 16:08-0500 Systolic blood pressure 124 mm[Hg] Elly Cruz [facility]; [facility] Work Phone: Comment on above: Patient Position: Sitting; Cuff Location : Left Arm; Cuff Size: Standard 05-28-2012 09:30-0400 BMI (Body Mass Index) 32.82 kg/m2 Ilene Elam [facility] Work Phone: 05-28-2012 09:30-0400 Body Temperature 97.8 [degF] Ilene Elam [facility] Work Phone: 05-28-2012 09:30-0400 BP Diastolic 87 mm[Hg] Ilene Elam [facility] Work Phone: 05-28-2012 09:30-0400 BP Systolic 128 mm[Hg] Ilene Elam [facility] Work Phone: 05-28-2012 09:30-0400 BSA (Body Surface Area) 1.82 m2 Ilene Elam [facility] Work Phone: 05-28-2012 09:30-0400 Height 157.48 cm Ilene Elam [facility] Work Phone: 05-28-2012 09:30-0400 Pulse (Heart Rate) 72 /min Ilene Elam [facility] Work Phone: 05-28-2012 09:30-0400 Respiratory Rate 16 /min Ilene Elam [facility] Work Phone: 05-28-2012 09:30-0400 Weight 81.1 kg Ilene Elam [facility] Work Phone: 03-16-2012 16:28-0400 Body height 154.94 cm Anj[facility] Work Phone: 03-16-2012 16:28-0400 Body mass index (BMI) [Ratio] 33.25 kg/m2 Anj[facility] Work Phone: 03-16-2012 16:28-0400 Body surface area Derived from formula 1.79 m2 Anjali [facility] Work Phone: 03-16-2012 16:28-0400 Body temperature 97.5 [degF] Anj[facility] Work Phone: 03-16-2012 16:28-0400 Body weight 79.83 kg Anjali [facility]; [facility] Work Phone: 03-16-2012 16:28-0400 Diastolic blood pressure 72 mm[Hg] Anjali Mendez [facility]; [facility] Work Phone: Comment on above: Patient Position: Sitting; Cuff Location : Left Arm; Cuff Size: Large 03-16-2012 16:28-0400 Heart rate 68 /min Anjali Mendez [facility]; [facility] Work Phone: Comment on above: Pattern: Regular 03-16-2012 16:28-0400 Respiratory rate 16 /min Anjali Mendez [facility]; [facility] Work Phone: Comment on above: Pattern: Unlabored 03-16-2012 16:28-0400 Systolic blood pressure 100 mm[Hg] Anjali Mendez [facility]; [facility] Work Phone: Comment on above: Patient Position: Sitting; Cuff Location : Left Arm; Cuff Size: Large 01-20-2012 16:52-0400 Body height 154.94 cm Elisabeth Zurita LPN [facility]; [facility] Work Phone: 01-20-2012 16:52-0400 Body mass index (BMI) [Ratio] 32.9 kg/m2 Elisabeth Zurita LPN [facility]; [facility] Work Phone: 01-20-2012 16:52-0400 Body surface area Derived from formula 1.78 m2 Elisabeth Zurita LPN [facility]; [facility] Work Phone: 01-20-2012 16:52-0400 Body weight 78.98 kg Elisabeth Zurita LPN [facility]; [facility] Work Phone: 01-20-2012 16:52-0400 Diastolic blood pressure 72 mm[Hg] Elisabeth Zurita CECI [facility]; [facility] Work Phone: Comment on above: Patient Position: Sitting; Cuff Location : Left Arm; Cuff Size: Standard 01-20-2012 16:52-0400 Heart rate 88 /min Elisabeth Zurita LPN [facility]; [facility] Work Phone: Comment on above: Pattern: Regular 01-20-2012 16:52-0400 Respiratory rate 16 /min Elisabeth Zurita LPN [facility]; [facility] Work Phone: 01-20-2012 16:52-0400 SaO2% (BldA) [Mass fraction] 94 % Elisabeth Zurita LPN [facility]; [facility] Work Phone: Comment on above: Room air 01-20-2012 16:52-0400 Systolic blood pressure 110 mm[Hg] Elsiabeth Zurita [employer] [facility]; [facility] Work Phone: Comment on above: Patient Position: Sitting; Cuff Location : Left Arm; Cuff Size: Standard 12-17-2011 15:40-0400 Body height 154.94 cm Elisabeth Zurita [facility]; [facility] Work Phone: 12-17-2011 15:40-0400 Body mass index (BMI) [Ratio] 33.53 kg/m2 Elisabeth Zurita LPN [facility]; [facility] Work Phone: 12-17-2011 15:40-0400 Body surface area Derived from formula 1.8 m2 Elisabeth Zurita LPN [facility]; [facility] Work Phone: 12-17-2011 15:40-0400 Body temperature 99.1 [degF] Elisabeth Zurita LPN [facility]; [facility] Work Phone: Comment on above: Method: Oral 12-17-2011 15:40-0400 Body weight 80.49 kg Elisabeth Zurita LPN [facility]; [facility] Work Phone: 12-17-2011 15:40-0400 Diastolic blood pressure 70 mm[Hg] Elisabeth Zurita LPN [facility]; [facility] Work Phone: Comment on above: Patient Position: Sitting; Cuff Location : Left Arm; Cuff Size: Standard 12-17-2011 15:40-0400 Heart rate 82 /min Elisabeth Zurita LPN [facility]; [facility] Work Phone: Comment on above: Pattern: Regular 12-17-2011 15:40-0400 Respiratory rate 16 /min Elisabeth Zurita LPN [facility]; [facility] Work Phone: Comment on above: Pattern: Unlabored 12-17-2011 15:40-0400 Systolic blood pressure 112 mm[Hg] Elisabeth Zurita LPN [facility]; [facility] Work Phone: Comment on above: Patient Position: Sitting; Cuff Location : Left Arm; Cuff Size: Standard 11-18-2011 15:11-0500 Body height 155.57 cm Anjali Mendez [facility]; [facility] Work Phone: 11-18-2011 15:11-0500 Body mass index (BMI) [Ratio] 34.11 kg/m2 Anjali Mendez [facility]; [facility] Work Phone: 11-18-2011 15:11-0500 Body surface area Derived from formula 1.82 m2 Anjali Andrea [facility]; [facility] Work Phone: 11-18-2011 15:11-0500 Body temperature 97.9 [degF] Anjali Estrellasilvia [facility]; [facility] Work Phone: 11-18-2011 15:11-0500 Body weight 82.56 kg Anjali Andrea [facility]; [facility] Work Phone: 11-18-2011 15:11-0500 Diastolic blood pressure 60 mm[Hg] Anjali Andrea [facility]; [facility] Work Phone: Comment on above: Patient Position: Sitting; Cuff Location : Left Arm; Cuff Size: Large 11-18-2011 15:11-0500 Heart rate 84 /min Anjali Andrea [facility]; [facility] Work Phone: Comment on above: Pattern: Regular 11-18-2011 15:11-0500 Respiratory rate 16 /min Anjali Estrellasilvia [facility]; [facility] Work Phone: Comment on above: Pattern: Unlabored 11-18-2011 15:11-0500 Systolic blood pressure 90 mm[Hg] Anjali Estrellasilvia [facility]; [facility] Work Phone: Comment on above: Patient Position: Sitting; Cuff Location : Left Arm; Cuff Size: Large 11-05-2011 15:54-0500 Body height 155.57 cm Anjali Andrea [facility]; [facility] Work Phone: 11-05-2011 15:54-0500 Body mass index (BMI) [Ratio] 35.05 kg/m2 Anjali Andrea [facility]; [facility] Work Phone: 11-05-2011 15:54-0500 Body surface area Derived from formula 1.84 m2 Anjali Mendez [facility]; [facility] Work Phone: 11-05-2011 15:54-0500 Body temperature 97.6 [degF] Anjali Estrellasilvia [facility]; [facility] Work Phone: 11-05-2011 15:54-0500 Body weight 84.82 kg Anjali Mendez [facility]; [facility] Work Phone: 11-05-2011 15:54-0500 Diastolic blood pressure 78 mm[Hg] Anjali Gomeztess [facility]; [facility] Work Phone: Comment on above: Patient Position: Sitting; Cuff Location : Left Arm; Cuff Size: Large 11-05-2011 15:54-0500 Heart rate 72 /min Anjali Estrellasilvia [facility]; [facility] Work Phone: Comment on above: Pattern: Regular 11-05-2011 15:54-0500 Respiratory rate 16 /min Anjali Estrellasilvia [facility]; [facility] Work Phone: Comment on above: Pattern: Unlabored 11-05-2011 15:54-0500 Systolic blood pressure 110 mm[Hg] Anjali Estrellasilvia [facility]; [facility] Work Phone: Comment on above: Patient Position: Sitting; Cuff Location : Left Arm; Cuff Size: Large 07-22-2011 13:58-0400 Body height 155.57 cm Reshma Kidd RN [facility]; [facility] Work Phone: 07-22-2011 13:58-0400 Body mass index (BMI) [Ratio] 35.98 kg/m2 Reshma Kidd RN [facility]; [facility] Work Phone: 07-22-2011 13:58-0400 Body surface area Derived from formula 1.86 m2 Reshma Kidd RN [facility]; [facility] Work Phone: 07-22-2011 13:58-0400 Body temperature 97.2 [degF] Reshma Kidd RN [facility]; [facility] Work Phone: 07-22-2011 13:58-0400 Body weight 87.09 kg Reshma Kidd RN [facility]; [facility] Work Phone: 07-22-2011 13:58-0400 Diastolic blood pressure 72 mm[Hg] Reshma Kidd RN [facility]; [facility] Work Phone: Comment on above: Patient Position: Sitting; Cuff Location : Left Arm; Cuff Size: Large 07-22-2011 13:58-0400 Heart rate 64 /min Reshma Kidd RN [facility]; [facility] Work Phone: Comment on above: Pattern: Regular 07-22-2011 13:58-0400 Respiratory rate 16 /min Reshma Kidd RN [facility]; [facility] Work Phone: Comment on above: Pattern: Unlabored 07-22-2011 13:58-0400 Systolic blood pressure 120 mm[Hg] Reshma Kidd RN [facility]; [facility] Work Phone: Comment on above: Patient Position: Sitting; Cuff Location : Left Arm; Cuff Size: Large 04-15-2011 16:37-0400 Body height 155.57 cm Anjali [facility] Work Phone: 04-15-2011 16:37-0400 Body mass index (BMI) [Ratio] 35.98 kg/m2 Anjali [facility]; [facility] Work Phone: 04-15-2011 16:37-0400 Body surface area Derived from formula 1.86 m2 Anjali Mendez [facility]; [facility] Work Phone: 04-15-2011 16:37-0400 Body temperature 96.6 [degF] Anjali Mendez [facility]; [facility] Work Phone: 04-15-2011 16:37-0400 Body weight 87.09 kg Anjali Mendez [facility]; [facility] Work Phone: 04-15-2011 16:37-0400 Diastolic blood pressure 68 mm[Hg] Anjali Mendez [facility]; [facility] Work Phone: Comment on above: Patient Position: Sitting; Cuff Location : Left Arm; Cuff Size: Large 04-15-2011 16:37-0400 Heart rate 70 /min Anjali Mendez [facility]; [facility] Work Phone: Comment on above: Pattern: Regular 04-15-2011 16:37-0400 Respiratory rate 16 /min Anjali Estrellasilvia [facility]; [facility] Work Phone: Comment on above: Pattern: Unlabored 04-15-2011 16:37-0400 Systolic blood pressure 94 mm[Hg] Anjali Andrea [facility]; [facility] Work Phone: Comment on above: Patient Position: Sitting; Cuff Location : Left Arm; Cuff Size: Large 10-22-2010 16:00-0500 Body temperature 97 [degF] Anjali Andrea [facility]; [facility] Work Phone: 10-22-2010 16:00-0500 Body weight 88.45 kg Anjali Andrea [facility]; [facility] Work Phone: 10-22-2010 16:00-0500 Diastolic blood pressure 80 mm[Hg] Anjali Estrellasilvia [facility]; [facility] Work Phone: Comment on above: Patient Position: Sitting; Cuff Location : Left Arm; Cuff Size: Standard 10-22-2010 16:00-0500 Heart rate 64 /min Anjali Estrellasilvia [facility]; [facility] Work Phone: Comment on above: Pattern: Regular 10-22-2010 16:00-0500 Respiratory rate 18 /min Anjali Andrea [facility]; [facility] Work Phone: Comment on above: Pattern: Unlabored 10-22-2010 16:00-0500 Systolic blood pressure 110 mm[Hg] Anjali Andrea [facility]; [facility] Work Phone: Comment on above: Patient Position: Sitting; Cuff Location : Left Arm; Cuff Size: Standard 08-07-2010 08:49-0400 Body temperature 97.2 [degF] Elisabeth Zurita LPN [facility]; [facility] Work Phone: Comment on above: Method: Oral 08-07-2010 08:49-0400 Body weight 88.45 kg Elisabeth Zurita LPN [facility]; [facility] Work Phone: 08-07-2010 08:49-0400 Diastolic blood pressure 78 mm[Hg] Elisabeth Zurita LPN [facility]; [facility] Work Phone: Comment on above: Patient Position: Sitting; Cuff Location : Left Arm; Cuff Size: Standard 08-07-2010 08:49-0400 Heart rate 82 /min Elisabeth Zurita LPN [facility]; [facility] Work Phone: Comment on above: Pattern: Regular 08-07-2010 08:49-0400 Respiratory rate 16 /min Elisabeth Zurita LPN [facility]; [facility] Work Phone: Comment on above: Pattern: Unlabored 08-07-2010 08:49-0400 Systolic blood pressure 120 mm[Hg] Elisabeth Zurita LPN [facility]; [facility] Work Phone: Comment on above: Patient Position: Sitting; Cuff Location : Left Arm; Cuff Size: Standard 04-03-2010 15:08-0400 Body temperature 98.4 [degF] Anjali Mendez [facility]; [facility] Work Phone: 04-03-2010 15:08-0400 Diastolic blood pressure 80 mm[Hg] Anjali Mendez [facility]; [facility] Work Phone: Comment on above: Patient Position: Sitting; Cuff Location : Left Arm; Cuff Size: Standard 04-03-2010 15:08-0400 Heart rate 80 /min Anjali Mendez [facility]; [facility] Work Phone: Comment on above: Pattern: Regular 04-03-2010 15:08-0400 Respiratory rate 18 /min Anjali Mendez [facility]; [facility] Work Phone: Comment on above: Pattern: Unlabored 04-03-2010 15:08-0400 Systolic blood pressure 116 mm[Hg] Anjali Mendez [facility]; [facility] Work Phone: Comment on above: Patient Position: Sitting; Cuff Location : Left Arm; Cuff Size: Standard 01-16-2010 16:19-0400 Body temperature 98.2 [degF] Anjali Mendez [facility]; [facility] Work Phone: 01-16-2010 16:19-0400 Body weight 88.45 kg Anjali Andrea [facility]; [facility] Work Phone: 01-16-2010 16:19-0400 Diastolic blood pressure 76 mm[Hg] Anjali Andrea [facility]; [facility] Work Phone: Comment on above: Patient Position: Sitting; Cuff Location : Left Arm; Cuff Size: Large 01-16-2010 16:19-0400 Heart rate 90 /min Anjali Mendez [facility]; [facility] Work Phone: Comment on above: Pattern: Regular 01-16-2010 16:19-0400 Respiratory rate 18 /min Anjali Mendez [facility]; [facility] Work Phone: Comment on above: Pattern: Unlabored 01-16-2010 16:19-0400 Systolic blood pressure 110 mm[Hg] Anjali Mendez [facility]; [facility] Work Phone: Comment on above: Patient Position: Sitting; Cuff Location : Left Arm; Cuff Size: Large 10-31-2009 16:01-0500 Body temperature 98.1 [degF] Anjali Mendez [facility]; [facility] Work Phone: 10-31-2009 16:01-0500 Body weight 86.18 kg Anjali Mendez [facility]; [facility] Work Phone: 10-31-2009 16:01-0500 Diastolic blood pressure 80 mm[Hg] Anjali Mendez [facility]; [facility] Work Phone: Comment on above: Patient Position: Sitting; Cuff Location : Right Arm; Cuff Size: Standard 10-31-2009 16:01-0500 Heart rate 84 /min Anjali Mendez [facility]; [facility] Work Phone: Comment on above: Pattern: Regular 10-31-2009 16:01-0500 Respiratory rate 18 /min Anjali Estrellasilvia [facility]; [facility] Work Phone: Comment on above: Pattern: Unlabored 10-31-2009 16:01-0500 Systolic blood pressure 126 mm[Hg] Anjali Estrellasilvia [facility]; [facility] Work Phone: Comment on above: Patient Position: Sitting; Cuff Location : Right Arm; Cuff Size: Standard 07-05-2009 15:43-0400 Body height 0 cm Anjali Andrea [facility]; [facility] Work Phone: 07-05-2009 15:43-0400 Body temperature 97.3 [degF] Anjali Estrellasilvia [facility]; [facility] Work Phone: Comment on above: Method: Undefined 07-05-2009 15:43-0400 Body weight 85.73 kg Anjali Estrellasilvia [facility]; [facility] Work Phone: 07-05-2009 15:43-0400 Diastolic blood pressure 82 mm[Hg] Anjali Andrea [facility]; [facility] Work Phone: Comment on above: Patient Position: Sitting; Cuff Location : Right Arm; Cuff Size: Standard 07-05-2009 15:43-0400 Head Occipital-frontal circumference 0 cm Anjali Andrea [facility]; [facility] Work Phone: 07-05-2009 15:43-0400 Heart rate 76 /min Anjali Andrea [facility]; [facility] Work Phone: Comment on above: Pattern: Regular 07-05-2009 15:43-0400 Respiratory rate 16 /min Anjali Andrea [facility]; [facility] Work Phone: Comment on above: Pattern: Undefined 07-05-2009 15:43-0400 Systolic blood pressure 122 mm[Hg] Anjali Andrea [facility]; [facility] Work Phone: Comment on above: Patient Position: Sitting; Cuff Location : Right Arm; Cuff Size: Standard 02-22-2009 15:15-0400 Body height 156.21 cm Anjali Estrellasilvia [facility]; [facility] Work Phone: 02-22-2009 15:15-0400 Body mass index (BMI) [Ratio] 32.9 kg/m2 Anjali Andrea [facility]; [facility] Work Phone: 02-22-2009 15:15-0400 Body surface area Derived from formula 1.8 m2 Anjali Estrellasilvia [facility]; [facility] Work Phone: 02-22-2009 15:15-0400 Body temperature 98.1 [degF] Anjali Estrellasilvia [facility]; [facility] Work Phone: Comment on above: Method: Undefined 02-22-2009 15:15-0400 Body weight 80.29 kg Anjali Andrea [facility]; [facility] Work Phone: 02-22-2009 15:15-0400 Diastolic blood pressure 74 mm[Hg] Anjali Andrea [facility]; [facility] Work Phone: Comment on above: Patient Position: Sitting; Cuff Location : Right Arm; Cuff Size: Standard 02-22-2009 15:15-0400 Head Occipital-frontal circumference 0 cm Anjali Mendez [facility]; [facility] Work Phone: 02-22-2009 15:15-0400 Heart rate 76 /min Anjali Andrea [facility]; [facility] Work Phone: Comment on above: Pattern: Regular 02-22-2009 15:15-0400 Respiratory rate 16 /min Anjali Andrea [facility]; [facility] Work Phone: Comment on above: Pattern: Undefined 02-22-2009 15:15-0400 Systolic blood pressure 114 mm[Hg] Anjali Mendez [facility]; [facility] Work Phone: Comment on above: Patient Position: Sitting; Cuff Location : Right Arm; Cuff Size: Standard Encounters Encounter Date Encounter Type Care Provider Facility Start: 02-06-2024 End: 02-11-2024 ambulatory GINA MCKEON MD Facility:B Start: 02-06-2024 End: 02-10-2024 Outreach Lab GINA MCKEON MD [facility] Start: 10-31-2015 End: 10-31-2015 Office outpatient visit 25 minutes Analilia Fast DO Work Phone: [facility] Start: 06-30-2015 End: 06-30-2015 Phone Encounter Analilia Fast DO Work Phone: [facility] Start: 06-29-2015 End: 06-29-2015 Historical Summary Analilia Fast DO Work Phone: [facility] Start: 06-27-2015 End: 06-27-2015 Office outpatient visit 25 minutes Analilia Fast DO Work Phone: [facility] Start: 06-09-2015 End: 06-09-2015 Historical Summary Analilia Fast DO Work Phone: [facility] Start: 02-06-2015 End: 02-06-2015 Office outpatient visit 25 minutes Analilia Fast DO Work Phone: [facility] Start: 11-01-2013 End: 11-24-2013 Office outpatient visit 10 minutes Analilia Fast DO Work Phone: [facility] Start: 11-01-2013 End: 11-01-2013 Patient encounter procedure Analilia Fast DO Work Phone: [facility] Start: 09-28-2013 End: 09-28-2013 Patient encounter procedure Analilia Fast DO Work Phone: [facility] Start: 07-27-2013 End: 07-27-2013 Patient encounter procedure Analilia Fast DO Work Phone: [facility] Start: 07-05-2013 End: 07-05-2013 Phone Encounter Analilia Fast DO Work Phone: [facility] Start: 01-01-2013 End: 01-01-2013 Patient encounter procedure Analilia Fast DO Work Phone: [facility] Start: 11-24-2012 End: 11-24-2012 Office outpatient visit 15 minutes Analilia Fast DO Work Phone: [facility] Start: 11-03-2012 End: 11-03-2012 Phone Encounter Analilia Fast DO Work Phone: [facility] Start: 11-02-2012 End: 11-02-2012 Annotation/Addendum Analilia Fast DO Work Phone: [facility] Start: 10-23-2012 End: 10-23-2012 Patient encounter procedure Analilia Fast DO Work Phone: [facility] Start: 08-19-2012 End: 08-19-2012 Patient encounter procedure Analilia Fast DO Work Phone: [facility] Start: 03-16-2012 End: 03-16-2012 Patient encounter procedure Analilia Fast DO Work Phone: [facility] Start: 01-20-2012 End: 01-20-2012 Patient encounter procedure Analilia Fast DO Work Phone: [facility] Start: 12-17-2011 End: 12-17-2011 Office outpatient visit 15 minutes Analilia Fast DO Work Phone: [facility] Start: 11-18-2011 End: 11-18-2011 Patient encounter procedure Analilia Fast DO Work Phone: [facility] Start: 11-05-2011 End: 11-05-2011 Patient encounter procedure Analilia Fast DO Work Phone: [facility] Start: 07-22-2011 End: 07-22-2011 Patient encounter procedure Analilia Fast DO Work Phone: [facility] Start: 04-15-2011 End: 04-15-2011 Patient encounter procedure Analilia Fast DO Work Phone: [facility] Start: 11-06-2010 End: 11-06-2010 Phone Encounter Analilia Fast DO Work Phone: [facility] Start: 10-22-2010 End: 10-22-2010 Patient encounter procedure Analilia Fast DO Work Phone: [facility] Start: 08-07-2010 End: 08-07-2010 Office outpatient visit 25 minutes Analilia Fast DO Work Phone: [facility] Start: 04-03-2010 End: 04-03-2010 Patient encounter procedure Analilia Fast DO Work Phone: [facility] Start: 01-16-2010 End: 01-16-2010 Patient encounter procedure Analilia Fast DO Work Phone: [facility] Start: 10-31-2009 End: 10-31-2009 Patient encounter procedure Analilia Fast DO Work Phone: [facility] Start: 07-05-2009 End: 07-06-2009 Patient encounter procedure Analilia Fast DO Work Phone: [facility] Start: 05-29-2009 End: 05-29-2009 Historical Summary Analilia Fast DO Work Phone: [facility] Start: 02-22-2009 End: 02-23-2009 Patient encounter procedure Analilia Fast DO Work Phone: [facility] Start: 12-21-2008 End: 12-21-2008 Historical Summary Analilia Fast DO Work Phone: [facility] Procedures Date Procedure Procedure Detail Performing Clinician Start: 10-06-2016 Biopsy of breast GINA MCKEON MD Start: 12-05-2015 End: 12-05-2015 Sleep Study Report Procedure Note: See Note; NOTES: [facility] [address] [place] [address] Polysomnography with NCPAP MR#: [id number] Acct: [id number] Name: PARVIZ GARCIA Rep #: [id number] : 1955 59 From: Nilo Kohli MD PCP: Analilia Strauss DO Status: REG CLI Ordering Dr.: Nilo Kohli MD Date: 12/01/15 Sex: F C DATE OF SERVICE: 12/01/2015 SCORING RULES: Respiratory events were acquired and scored in accordance with the Recommended Standards and Specifications as outlined in the AASM Manual for the Scoring of Sleep and Associated Events ( most recent version). Please note that a reference to [facility] AHI in this report is consistent with the current Hypopnea definition according to Medicare Criteria and an [facility] AHI reference is consistent with the current Hypopnea definition according to the AASM criteria and is recognized by [facility] as the RDI. PROCEDURE: The study was attended continuously by a maintenance technician. Monitored parameters included left and right EOG, frontal, central, and occipital EEG, mental and submental EMG, left and right anterior tibialis EMG, signal ECG waveform, snore, continuous airflow with PAP device flow signal, chest and abdominal plethysmography efforts, oxygen saturation with heart rate, and body positioning with video monitoring. REFERRING PHYSICIAN: Dr. Nilo Kohli. HISTORY: The patient is a 59-year-old female with calculated body mass index of 36.8 and [place] Sleepiness Scale score of 3/24. The patient has a known history of sleep disordered breathing as diagnosed by overnight polysomnogram performed on July 21, 2015, showing overall AHI of 2.5, but RDI of 15.1. The patient also has significant oxygen desaturations during that study. The patient is now undergoing this titration study to determine appropriate CPAP setting to normalize apnea/hypopnea index and attempt to maintain oxygen saturations greater than 90%. ADDITIONAL MEDICAL HISTORY: Significant for hyperlipidemia, vitamin D deficiency, impaired fasting glucose, obesity, lower back pain, unspecified, depressive disorder, unspecified; IBS. MEDICATIONS REPORTED AT TIME OF STUDY: Include trazodone, Lexapro, Flonase, Valtrex, ____, cyclobenzaprine, Librax, Celebrex, Crestor, esterase. MASK USED DURING TITRATION: Respironics Wanda view full face mask. It should be noted that prior to the study, the patient was acclimated to CPAP at settings of 47 cm of water with humidification. SLEEP STUDY DATA: The overnight titration study began at 0947:34 p.m. and ended at 0508:47 a.m. for a total recording time of 441.2 minutes of which the patient slept 367.3 minutes for a calculated sleep efficiency of 83.2%. Sleep latency was 31.9 minutes with a REM latency of 107.5 minutes. Sleep stage percentages were as follows, N1 5.9%, N2 53.8%, N3 13.3%, REM 27% of total sleep. There were total of 60 arousals during the study, resulting in an overall arousal index of 9.8. The respiratory arousal index based on RDI was 1.8 while spontaneous arousal index was 7.2. Limb movement arousal index was 0.8. CONTINUOUS POSITIVE AIRWAY PRESSURE DATA: The patient was initially titrated on CPAP settings of 7, 9, 11 cm of water with humidification. On these settings, the patient's apnea/hypopnea index and RDI remained in the mild range. In addition, oxygen saturations fell as low as 82% on these settings. The patient could not tolerate higher CPAP settings and thus was switched to Bilevel therapy. On a Bilevel setting of 11/7 cm of water with humidification with Bilevel Ti controls of Ti Max 2.0, Ti Min 0.3, cycle medium, trigger medium, Easy-Breathe on, the patient's both apnea/hypopnea index and RDI was normalized. This includes in an AHI of 0 and RDI of 1.4. This also included recording of supine positioning and REM sleep simultaneously. However, oxygen saturations were still falling as low as 85% with mean oxygen saturations being maintained at about 87%. Thus while the patient remained on Bilevel of 11/7 cm of water with humidification, oxygen was titrated to 2 and 3 L per minute. The patient did best on the final setting of Bilevel 11/7 cm of water with humidification with 3 liters per minute of oxygen. On this setting, the minimum oxygen saturation was 89% with a mean oxygen saturation of 90.9%. The overall AHI on this setting was 0 with an RDI of 0.6, but again supine positioning being recorded simultaneous with REM sleep. The arousal index on this setting was only 7.8. Of note, for the entire study, the patient spent 96.2 minutes with an oxygen saturation less than 88%. ELECTROCARDIOGRAM DATA: Mean heart rate during sleep was 72 beats per minute with a range of 60-101 beats per minute. PVCs were noted throughout the study. LIMB MOVEMENT DATA: There were 136 periodic limb movements during the study, resulting in a periodic limb movement index of 22.2. Five of these limb movements were associated with arousal resulting in a periodic limb movement arousal index of 0.8. The periodic limb movement arousal index was normal, the periodic limb movement index itself is elevated. This could raise concern for possible underlying sleep movement disorder such as restless leg syndrome. Clinical correlation is needed. DIAGNOSIS: Obstructive sleep apnea syndrome, G47.33. IMPRESSION: 1. At a Bilevel setting of 11/7 cm of water with humidification, with the addition of supplemental oxygen at 3 liters per minute, the patient's apnea/hypopnea index and RDI is normalized. Snoring is eliminated and the arousal index was also normalized on this setting. More importantly, this is the only setting in which the mean oxygen saturation is maintained at/or above 90% with a minimum oxygen saturation never falling below 89%. Again, Bilevel Ti controls were as above and Ti Max 2.0, Ti Min 0.3, cycle medium, trigger medium, Easy-Breathe on. 2. Abnormal sleep architecture likely secondary to first night effect, possible medication effect, and titration. RECOMMENDATIONS: 1. Initiate Bilevel at a setting of 11/7 cm of water with humidification with 3 liters per minute of supplemental oxygen. Recommend use of CPAP mask ____ as well as Bilevel Ti controls as above. 2. Encouraged weight loss to optimal body mass index. 3. Recommend the patient be advised to avoid activities or medications that could exacerbate sleep disordered breathing. 4. Recommend the patient be advised not to drive or operate heavy machinery when sleepy. INTERPRETING PHYSICIAN: Nilo Kohli Jr., MRosita. Nilo Kohli MD T: NTS JOB: [id number] CC: Nilo Kohil MD 1200 1200 12/05/15 1438 <Electronically signed by Nilo Kohli MD> Date Nilo Kohli MD Co-signature (if applicable) Date Signed Analilia Strauss DO Work Phone: Start: 10-31-2015 End: 10-31-2015 Ecg routine ecg w/least 12 lds w/i&r [MEASUREMENTS ANALYSIS] Date of Test: 10/31/2015 08:55:51; Heart Rate: 63; ND Interval: 146; QRS: 88; QT Interval: 418; Corrected QT Interval (QTc): 423; P Wave [place]: 43; QRS Wave [place]: -10; T Wave [place]: 23; Blood Pressure: 124/80 [ECG DIAGNOSTIC STATEMENTS] Date of Test: 10/31/2015 08:55:51; Summary: 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 ABNORMAL Analilia A Hartman Wright Work Phone: Comment on above: ekg showed normal si nus rhythym, normal axis, no acute st/t wave changes Start: 08-15-2015 End: 08-16-2015 Bilat Scrn Digital AND CAD Procedure Note: See Note; NOTES: [facility] Imaging Services [address] [place] [address] Verdana 4d Bilat Scrn Digital AND CAD MR#: [id number] Acct: [id number] Name: PARVIZ GARCIA Rep #: [id number] : 1955 F 59 From: Douglas Hauser MD PCP: Analilia Strauss DO Status: REG CLI Study: Bilat Scrn Digital AND CAD Date of Exam: 08/15/15 Exam# [id number] Ordering Dr: Gina Mckeon MD MAMMOGRAPHY - BILATERAL SCREENING REASON FOR EXAM: Female, 59 years old. Routine annual screening examination. PERTINENT HISTORY: Grandmother with breast cancer. Aunt with breast cancer. TECHNIQUE: Digital examination. Mediolateral oblique (MLO) and craniocaudad (CC) views of both breasts were obtained. CAD: CAD was performed on this study. COMPARISON: Comparison is made with prior study dated July 19, 2013 and May 29, 2012. FINDINGS: Breast Composition: There are scattered areas of fibroglandular density. There are no dominant masses or suspicious calcifications. The previously seen nodular density in the superior lateral region of the left breast as decreased further in size. It presently measures 8 mm. No new lesion is seen. No other significant abnormalities are identified. IMPRESSION: Further decrease in size of the left breast nodule. Yearly follow-up recommended. (A) ASSESSMENT CATEGORY: BIRADS Category 2: Benign. A letter regarding these results will be sent to the patient by the facility within 30 days. Approximately 10% of breast cancers are not detected by mammography. A normal mammogram should not delay biopsy of a clinically suspicious abnormality. Electronically Signed: Douglas Hauser MD at 7:57 EST Tel [phone], Service support [phone], CC: Gina Mckeon MD; Analilia Strauss DO Networker: Signed Analilia Strauss DO Work Phone: Start: 07-28-2015 End: 07-28-2015 Sleep Study Report Procedure Note: See Note; NOTES: [facility] [address] [place] [id number] Polysomnography MR#: [id number] Acct: [id number] Name: PARVIZ GARCIA Rep #: [id number] : 1955 59 From: Nilo Kohli MD PCP: Analilia Strauss DO Status: REG CLI Ordering DrJessica: Analilia Strauss DO Date: 07/21/15 Sex: F C DATE OF SERVICE: 07/21/2015 SCORING RULES: Respiratory events were acquired and scored in accordance with the Recommended Standards and Specifications as outlined in the AASM Manual for the Scoring of Sleep and Associated Events ( most recent version). Please note that a reference to [facility] AHI in this report is consistent with the current Hypopnea definition according to Medicare Criteria and an [facility] AHI reference is consistent with the current Hypopnea definition according to the AASM criteria and is recognized by [facility] as the RDI. PROCEDURE: The study was attended continuously by a maintenance technician. Monitored parameters included left and right EOG, frontal, central, and occipital EEG, mental and submental EMG, left and right anterior tibialis EMG, signal ECG waveform, snore, continuous airflow with thermistor and nasal pressure transducer, chest and abdominal plethysmography efforts, oxygen saturation with heart rate, and body positioning with video monitoring. REFERRING PHYSICIAN: Dr. Analilia Strauss. HISTORY OF PRESENT ILLNESS: The patient is a 59-year-old female with calculated body mass index of 36.8 and [place] sleepiness scale score of 3/24. The patient reportedly has symptoms of snoring, daytime sleepiness, night sweats, and is undergoing overnight polysomnogram to evaluate for possible sleep disordered breathing or other primary sleep disorder. ADDITIONAL MEDICAL HISTORY: Significant for hyperlipidemia, vitamin D deficiency, impaired fasting glucose, obesity, lower back pain, allergic rhinitis, depression, shoulders pain unspecified, coccydynia, IBS, and tonsillectomy. MEDICATIONS REPORTED AT TIME OF STUDY: Include trazodone, Lexapro, Flonase, Valtrex, HyoMax, cyclobenzaprine, Librax, Celebrex, Crestor, esterase. SLEEP STUDY DATA: The overnight polysomnogram began 0920:48 p.m. and ended 0515:21 a.m. for a total recording time of 474.5 minutes of which the patient slept 405 minutes for a calculated sleep efficiency of 85.3%. Sleep latency was 10 minutes with a REM latency of 245 minutes. Note REM latency could be prolonged due to the patient being on SSRIs that could act as REM suppressants. Sleep stage percentages were as follows, N1 9.9%, N2 74.1%, N3 1.6%, and REM 14.4% of total sleep. There were a total of 183 arousals during the study, resulting in an overall arousal index of 27.1. Note the respiratory arousal index during the study was 14.4 while spontaneous arousal index was 12.3. Limb movement arousal index was 0.4. RESPIRATORY DATA: Snoring was present during the recording. The overall apnea/hypopnea index was 2.5 while RDI was 15.1. All respiratory events during this study were of obstructive nature except for 1 Central apnea. Note there were a total of 17 respiratory events by AHI and 102 respiratory events by RDI. Note that supine positioning in REM sleep did not significantly influence the AHI or RDI. Mean oxygen saturation during this study was 92.2% with a minimum oxygen saturation of 83%. The patient spent 23.4% of sleep with an oxygen saturation less than 88%. Desaturations were strongly associated with supine positioning as well as respiratory events. ELECTROCARDIOGRAM DATA: Mean heart rate during sleep was 72 beats per minute with a range of 60-99 beats per minute. Rare PVCs were noted. LIMB MOVEMENT DATA: There were 108 periodic limb movements during the study, resulting in a periodic limb movement index of 16. Three of these limb movements were associated with arousal resulting in a periodic limb movement arousal index of 0.4. The limb movement arousal index is normal, but periodic limb movement index is mildly elevated raising concern for possible underlying sleep movement disorder. However, clinical significance of limb movements needs to be further evaluated in the office setting. Both first night effect as well as untreated sleep disordered breathing could contribute to underlying sleep movements during the study. DIAGNOSIS: Obstructive sleep apnea syndrome. IMPRESSION: 1. Based on RDI, moderate obstructive sleep apnea syndrome. Respiratory events were associated with arousals as well as oxygen saturations as above. 2. Abnormal sleep architecture likely secondary to first night effect, possible medication effect, and respiratory events. RECOMMENDATIONS: 1. Given subjective complaints, the patient having medical conditions that could be exacerbated by sleep disordered breathing, and the findings of this study, would recommend the patient be treated with positive airway pressure therapy. If this is the choice of therapy, would recommend positive airway pressure titration to determine appropriate CPAP setting to normalize apnea/hypopnea index and attempt to maintain oxygen saturations greater than 90%. 2. Encouraged weight loss to optimal body mass index. 3. Recommend the patient be advised to avoid activities or medications that could exacerbate sleep disordered breathing. 4. Recommend the patient be advised not to drive or operate heavy machinery when sleepy. INTERPRETING PHYSICIAN: Jr. MD Nilo Garcia MD T: NTS JOB: [id number] CC: Nilo Kohli MD 1422 07/28/15 0808 <Electronically signed by Nilo Kohli MD> Date Nilo Kohli MD Co-signature (if applicable) Date Signed Analilia Strauss DO Work Phone: Start: 06-27-2015 End: 06-27-2015 Spmtry w/vc expiratory pamela w/wo mxml vol vntj _ Analilia A Fast DO Work Phone: Comment on above: good effort and curv e normal Start: 06-22-2015 End: 06-22-2015 12 lead ECG Procedure Note: See Note; NOTES: [facility]ovascular Services [address] [place] [address] 12 Lead EKG 06/21/15 0733 MR#: [id number] Acct: [id number] Name: PARVIZ GARCIA Rep #: [id number] : 1955 59 From: Claudio Bolanos MD Attending Dr: Analilia Strauss DO Status: REG CLI Ordering Dr: Analilia Strauss DO Date: 06/21/15 Location: LAB Sex: F C Admitted: Test Reason : PRE OP Blood Pressure : / mmHG Vent. Rate : 063 BPM Atrial Rate : 063 BPM P-R Int : 144 ms QRS Dur : 072 ms QT Int : 428 ms P-R-T Axes : 040 -14 004 degrees QTc Int : 437 ms Normal sinus rhythm Low voltage QRS Inferior infarct , age undetermined Abnormal ECG Confirmed by CLAUDIO BOLANOS ([id number]), subeditor ROSALIE VALENTINE ([id number]) on 06/22/2015 10:41:56 AM Referred By: EITAN Confirmed By:CLAUDIO BOLANOS 06/22/15 1042 Date Claudio Bolanos MD CC: Analilia Strauss DO Date Dictated: 06/21/15 0733 Date Transcribed: 06/21/15732 Networker: Signed Analilia Caldwell Fast DO Work Phone: section GINA Wolfe MD Colonoscopy Anjali morejon Comment on above: Done on 05/16/15- crystal wed scattered Diverticuli to colon. Repeat in 7 years. Endometrial ablation GINA MCKEON MD H/O: section Section Darion Mendez H/O: surgery Tonsillectomy Anjali Curtis er Laboratory test resu lt abnormal Abnormal laboratory test result Analilia A Fast DO Work Phone: Laboratory test resu lt abnormal Abnormal laboratory test result (796.4) Analilia Fast DO Work Phone: left shoulder- 2011- [facility]- bone spurs Anjali Mendez right wrist surgery - knapic 2015 Anjali Mendez Surgery (qualifier value) GINA MCKEON MD Comment on above: hand, shoulder Tonsillectomy GINA Sampson Plan of Treatment Date Care Activity Detail Author Start: 06-22-2018 End: 07-14-2017 Pulmonary Function Test - complete Pulmonary Function Test - complete [facility] Phone: Start: 07-14-2017 End: 07-14-2017 BWA BWA [facility] Work Phone: Start: 07-14-2017 End: 07-14-2017 Follow Up Appt 1 year Follow Up Appt 1 year [facility] Phone: Start: 07-14-2017 End: 07-14-2017 Appointment Appointment [facility] Work Phone: Start: 06-18-2017 End: 06-18-2017 Ct thorax w/o contrast material CT Chest without contrast [facility] Phone: Start: 06-18-2017 End: 06-18-2017 Follow Up Appt 1 month Follow Up Appt 1 month [facility] Phone: Start: 06-18-2017 End: 06-18-2017 Pulmonary Function Test - complete Pulmonary Function Test - complete [facility] Phone: Start: 06-18-2017 End: 06-18-2017 Appointment Appointment [facility] Phone: Start: 06-18-2017 End: 06-18-2017 Ct thorax w/o dye CT Chest without contrast [facility] Phone: Start: 06-18-2017 End: 06-18-2017 Follow Up Appt 1 month Follow Up Appt 1 month [facility] Phone: Start: 06-18-2017 End: 06-18-2017 Pulmonary Function Test - complete Pulmonary Function Test - complete [facility] Phone: Start: 10-31-2015 Procedure Education Eprescribed prescriptions ([id number]) [facility] Work Phone: Start: 10-31-2015 Carboxyhemoglobin quantitative CARBON MONOXIDE ([id number]) [facility]; [facility] Work Phone: Start: 10-31-2015 Blood count manual cell count each CBC with auto diff (23514) [facility]; [facility] Work Phone: Start: 10-31-2015 25 hydroxy includes fractions if performed Vitamin D Hydroxy (72423) [facility]; [facility] Work Phone: Start: 10-31-2015 Comprehensive metabolic panel METABOLIC PANEL, COMPREHENSIVE (72452) [facility]; [facility] Work Phone: Start: 10-31-2015 Lipid panel LIPID PANEL (88596) [facility]; [facility] Work Phone: Start: 06-30-2015 Carboxyhemoglobin quantitative CARBON MONOXIDE (77614) [facility]; [facility] Work Phone: Start: 06-27-2015 Procedure Education Eprescribed prescriptions (G8553) [facility]; [facility] Work Phone: Start: 06-27-2015 Lipid panel LIPID PANEL (15805) [facility]; [facility] Work Phone: Start: 06-27-2015 Blood count complete auto&auto difrntl wbc CBC with auto diff (12673) [facility]; [facility] Work Phone: Start: 06-27-2015 Hemoglobin glycosylated a1c Hemoglobin Glyclated (HGB A1C) (04764) [facility]; [facility] Work Phone: Start: 06-27-2015 Comprehensive metabolic panel METABOLIC PANEL, COMPREHENSIVE (70410) [facility]; [facility] Work Phone: Start: 06-27-2015 25 hydroxy includes fractions if performed Vitamin D Hydroxy (83388) [facility]; [facility] Work Phone: Start: 02-06-2015 Procedure Education Eprescribed prescriptions (G8553) [facility]; [facility] Work Phone: Start: 02-06-2015 Urnls dip stick/tablet reagent auto microscopy URINALYSIS, W/ MICRO (57164) [facility]; [facility] Work Phone: Start: 02-06-2015 Urine albumin quantitative MICROALBUMIN: CREATININE RATIO (72994) AND (13613) [facility]; [facility] Work Phone: Start: 02-06-2015 Blood count complete auto&auto difrntl wbc CBC W/AUTO DIFF WBC (09245) [facility]; [facility] Work Phone: Start: 02-06-2015 Comprehensive metabolic panel METABOLIC PANEL, COMPREHENSIVE (83201) [facility]; [facility] Work Phone: Start: 02-06-2015 25 hydroxy includes fractions if performed Vitamin D Hydroxy (59414) [facility]; [facility] Work Phone: Start: 02-06-2015 Lipid panel LIPID PANEL (09731) [facility]; [facility] Work Phone: Start: 07-27-2013 25 hydroxy includes fractions if performed Vitamin D Hydroxy (58468) [facility]; [facility] Work Phone: Start: 07-27-2013 Lipid panel LIPID PANEL (31384) [facility]; [facility] Work Phone: Start: 07-27-2013 Comprehensive metabolic panel METABOLIC PANEL, COMPREHENSIVE (81599) [facility]; [facility] Work Phone: Start: 07-27-2013 Urine albumin quantitative MICROALBUMIN: CREATININE RATIO (99636) AND (12395) [facility]; [facility] Work Phone: Start: 07-27-2013 Hemoglobin glycosylated a1c HgA1C , Office (72891) [facility]; [facility] Work Phone: Start: 07-27-2013 Provider Instructions for Treatment Diet, Exercise, and Wt loss [facility]; [facility] Work Phone: Start: 07-05-2013 Blood count manual cell count each CBC with manual diff (39831) [facility]; [facility] Work Phone: Start: 07-05-2013 Comprehensive metabolic panel METABOLIC PANEL, COMPREHENSIVE (94949) [facility]; [facility] Work Phone: Start: 07-05-2013 Assay of thyroid stimulating hormone tsh TSH (THYROID STIMULATING HORMONE) (91185) [facility]; [facility] Work Phone: Start: 07-05-2013 Lipid panel LIPID PANEL (96802) [facility]; [facility] Work Phone: Start: 07-05-2013 25 hydroxy includes fractions if performed CALCIFEDIOL (86558) [facility]; [facility] Work Phone: Start: 07-05-2013 Urinls dip stick/tablet reagnt non-auto micrscpy URINALYSIS W MICROSCOPY (55747) [facility]; [facility] Work Phone: Start: 11-24-2012 Provider Instructions for Treatment Follow up in 1 month [facility]; [facility] Work Phone: Start: 11-03-2012 Calcium total CALCIUM SERUM (70031) [facility]; [facility] Work Phone: Start: 11-02-2012 Potassium serum plasma/whole blood POTASSIUM SERUM (30521) [facility]; [facility] Work Phone: Start: 10-23-2012 Patient Education Obesity *: obesity [facility]; [facility] Work Phone: Start: 08-19-2012 Assay of thyroid stimulating hormone tsh TSH (05336) [facility]; [facility] Work Phone: Start: 08-19-2012 25 hydroxy includes fractions if performed Vitamin D Hydroxy (91772) [facility]; [facility] Work Phone: Start: 08-19-2012 Blood count manual cell count each CBC WITH MANUAL DIFF (60765) [facility]; [facility] Work Phone: Start: 08-19-2012 Comprehensive metabolic panel METABOLIC PANEL, COMPREHENSIVE (78271) [facility]; [facility] Work Phone: Start: 08-19-2012 Urine albumin quantitative MICROALBUMIN: CREATININE RATIO (00318) AND (72329) [facility]; [facility] Work Phone: Start: 08-19-2012 Hemoglobin glycosylated a1c Hemoglobin Glyclated (HGB A1C) (66347) [facility]; [facility] Work Phone: Start: 08-19-2012 Lipid panel LIPID PANEL (17948) [facility]; [facility] Work Phone: Start: 03-16-2012 Urine albumin quantitative MICROALBUMIN: CREATININE RATIO (66845) AND (03429) [facility]; [facility] Work Phone: Start: 03-16-2012 Comprehensive metabolic panel METABOLIC PANEL, COMPREHENSIVE (97735) [facility]; [facility] Work Phone: Start: 03-16-2012 Assay of thyroid stimulating hormone tsh TSH (59807) [facility]; [facility] Work Phone: Start: 03-16-2012 25 hydroxy includes fractions if performed Vitamin D Hydroxy (42924) [facility]; [facility] Work Phone: Start: 03-16-2012 Hepatic function panel HEPATIC FUNCTION PANEL (69068) [facility]; [facility] Work Phone: Start: 03-16-2012 Lipid panel LIPID PANEL (81491) [facility]; [facility] Work Phone: Start: 03-16-2012 Patient Education Shoulder Bursitis *: bursa [facility]; [facility] Work Phone: Start: 03-16-2012 Provider Instructions for Treatment [facility]; [facility] Work Phone: Start: 11-18-2011 Provider Instructions for Treatment Diet, Exercise, and Wt loss [facility]; [facility] Work Phone: Start: 11-05-2011 Blood count manual cell count each CBC WITH MANUAL DIFF (32900) [facility]; [facility] Work Phone: Start: 11-05-2011 Comprehensive metabolic panel METABOLIC PANEL, COMPREHENSIVE (47635) [facility]; [facility] Work Phone: Start: 11-05-2011 25 hydroxy includes fractions if performed Vitamin D Hydroxy (17597) [facility]; [facility] Work Phone: Start: 11-05-2011 Lipid panel LIPID PANEL (53495) [facility]; [facility] Work Phone: Start: 11-05-2011 Provider Instructions for Treatment Diet, Exercise, and Wt loss [facility]; [facility] Work Phone: Start: 07-22-2011 Hepatic function panel HEPATIC FUNCTION PANEL (65071) [facility]; [facility] Work Phone: Comment on above: oct 30 oct 03 sep 18 sep 04 aug 19 now in jul Start: 04-15-2011 25 hydroxy includes fractions if performed Vitamin D Hydroxy (25959) [facility]; [facility] Work Phone: Start: 04-15-2011 Comprehensive metabolic panel METABOLIC PANEL, COMPREHENSIVE (89178) [facility]; [facility] Work Phone: Start: 04-15-2011 Lipid panel LIPID PANEL (50103) [facility]; [facility] Work Phone: Start: 11-06-2010 Potassium serum plasma/whole blood Potassium Serum (71008) [facility]; [facility] Work Phone: Start: 10-22-2010 Comprehensive metabolic panel METABOLIC PANEL, COMPREHENSIVE (54782) [facility]; [facility] Work Phone: Start: 10-22-2010 Blood count manual cell count each CBC WITH MANUAL DIFF (24785) [facility]; [facility] Work Phone: Start: 10-22-2010 25 hydroxy includes fractions if performed Vitamin D Hydroxy (95044) [facility]; [facility] Work Phone: Start: 10-22-2010 Lipid panel LIPID PANEL (42025) [facility]; [facility] Work Phone: Start: 10-22-2010 C-reactive protein C-REACTIVE PROTEIN (64659) [facility]; [facility] Work Phone: Start: 10-22-2010 Sedimentation rate rbc non-automated SED RATE ERYTHROCYTE (39782) [facility]; [facility] Work Phone: Start: 08-07-2010 Provider Instructions for Treatment FOLLOW UP NEEDED [facility]; [facility] Work Phone: Start: 01-16-2010 Comprehensive metabolic panel METABOLIC PANEL, COMPREHENSIVE (99599) [facility]; [facility] Work Phone: Start: 01-16-2010 Urnls dip stick/tablet reagent auto microscopy URINALYSIS, W/ MICRO (90377) [facility]; [facility] Work Phone: Start: 01-16-2010 Assay of thyroid stimulating hormone tsh TSH (99921) [facility]; [facility] Work Phone: Start: 01-16-2010 Blood count manual cell count each CBC WITH MANUAL DIFF (41665) [facility]; [facility] Work Phone: Start: 10-31-2009 25 hydroxy includes fractions if performed Vitamin D Hydroxy (14054) [facility]; [facility] Work Phone: Start: 10-31-2009 Hepatic function panel HEPATIC FUNCTION PANEL (39685) [facility]; [facility] Work Phone: Start: 10-31-2009 Lipid panel LIPID PANEL (49267) [facility]; [facility] Work Phone: Start: 07-05-2009 25 hydroxy includes fractions if performed Vitamin D Hydroxy (49376) [facility]; [facility] Work Phone: Start: 02-22-2009 Urnls dip stick/tablet rgnt auto w/o microscopy URINALYSIS W/O MICRO (38958) [facility]; [facility] Work Phone: Start: 02-22-2009 Blood count manual cell count each CBC WITH MANUAL DIFF (05547) [facility]; [facility] Work Phone: Start: 02-22-2009 Assay of thyroid stimulating hormone tsh TSH (76810) [facility]; [facility] Work Phone: Start: 02-22-2009 Comprehensive metabolic panel METABOLIC PANEL, COMPREHENSIVE (90739) [facility]; [facility] Work Phone: Start: 02-22-2009 Hepatic function panel HEPATIC FUNCTION PANEL (22957) [facility]; [facility] Work Phone: Start: 02-22-2009 Lipid panel LIPID PANEL (65018) [facility]; [facility] Work Phone: [facility]; [facility] Work Phone: [facility]; [facility] Work Phone: [facility]; [facility] Work Phone: [facility]; [facility] Phone: [facility]; [facility] Work Phone: [facility]; [facility] Work Phone: [facility]; [facility] Work Phone: [facility]; [facility] Work Phone: Immunizations Immunization Date Immunization Notes Care Provider [facility] 07-05-2009 influenza, seasonal, injectable Analilia Fast DO Work Phone: [facility]; [facility] Work Phone: Comment on above: Lot #[id number] Site-left deltoidDose0.5mlgiven by Brenda Morataya LPN Payers Date Payer Category Payer Private Health Insurance [id number] 1955 Unknown [id number] Unknown Social History Date Type Detail Facility Alcohol Use Alcohol Use [facility] Work Phone: Comment on above: Occasional alcohol u se 4 breannaaf, coke Occasional , heterosexua l [place] Tobacco Use: Tobacco Use: [facility]; [facility] Work Phone: Comment on above: Remotely quit tobacc o use 07/22/11, 11/05/11, 12/17/11, 01/20/12 Start: 02-06-2024 Tobacco smoking status Ex-smoker (fi nding) [facility] Sex Assigned At Female [facility] Clinical Note 02-10-2024 Note Date & Type Note Facility 02-10-2024 Note If ancillary studies were utilized, the following Laboratory Developed Test (LDT) disclaimer will apply: Under CLIA requirements, [facility] is qualified to perform high complexity testing. For all ancillary stains, positive and negative controls stain appropriately. Performance characteristics of immunohistochemical and chromogenic in-situ hybridization tests have been determined by [facility]. These tests are used for clinical purposes, They should not be regarded as investigational or for research. [facility] Clinical Note 02-10-2024 Note Date & Type Note Facility 02-10-2024 Note If ancillary studies were utilized, the following Laboratory Developed Test (LDT) disclaimer will apply: Under CLIA requirements, [facility] is qualified to perform high complexity testing. For all ancillary stains, positive and negative controls stain appropriately. Performance characteristics of immunohistochemical and chromogenic in-situ hybridization tests have been determined by [facility]. These tests are used for clinical purposes, They should not be regarded as investigational or for research. [facility] Clinical Note 02-09-2024 Note Date & Type Note Facility 02-09-2024 Note If ancillary studies were utilized, the following Laboratory Developed Test (LDT) disclaimer will apply: Under CLIA requirements, [facility] is qualified to perform high complexity testing. For all ancillary stains, positive and negative controls stain appropriately. Performance characteristics of immunohistochemical and chromogenic in-situ hybridization tests have been determined by [facility]. These tests are used for clinical purposes, They should not be regarded as investigational or for research. [facility] Clinical Note 02-09-2024 Note Date & Type Note Facility 02-09-2024 Note If ancillary studies were utilized, the following Laboratory Developed Test (LDT) disclaimer will apply: Under CLIA requirements, [facility] is qualified to perform high complexity testing. For all ancillary stains, positive and negative controls stain appropriately. Performance characteristics of immunohistochemical and chromogenic in-situ hybridization tests have been determined by [facility]. These tests are used for clinical purposes, They should not be regarded as investigational or for research. [facility] Clinical Note 02-09-2024 Note Date & Type Note Facility 02-09-2024 Note If ancillary studies were utilized, the following Laboratory Developed Test (LDT) disclaimer will apply: Under CLIA requirements, [facility] is qualified to perform high complexity testing. For all ancillary stains, positive and negative controls stain appropriately. Performance characteristics of immunohistochemical and chromogenic in-situ hybridization tests have been determined by [facility]. These tests are used for clinical purposes, They should not be regarded as investigational or for research. [facility] Clinical Note 02-09-2024 Note Date & Type Note Facility 02-09-2024 Note If ancillary studies were utilized, the following Laboratory Developed Test (LDT) disclaimer will apply: Under CLIA requirements, [facility] is qualified to perform high complexity testing. For all ancillary stains, positive and negative controls stain appropriately. Performance characteristics of immunohistochemical and chromogenic in-situ hybridization tests have been determined by [facility]. These tests are used for clinical purposes, They should not be regarded as investigational or for research. [facility] Clinical Note 02-09-2024 Note Date & Type Note Facility 02-09-2024 Note If ancillary studies were utilized, the following Laboratory Developed Test (LDT) disclaimer will apply: Under CLIA requirements, [facility] is qualified to perform high complexity testing. For all ancillary stains, positive and negative controls stain appropriately. Performance characteristics of immunohistochemical and chromogenic in-situ hybridization tests have been determined by [facility]. These tests are used for clinical purposes, They should not be regarded as investigational or for research. [facility] Evaluation + Plan note Note Date & Type Note Facility Evaluation + Plan note No data available for this section [facility] Hospital Discharge instructions Note Date & Type Note Facility Hospital Discharge instructions No data available for this section [facility] Instructions Note Date & Type Note Facility Instructions Name How to access health information online Indication:Impaired fasting glucose Start: 6 Instruction Type:Patient Education How to access health information online - Detail Indication:Impaired fasting glucose Start: 6 Instruction Type:Patient Education Patient Instructions Indication:Impaired fasting glucose Start: 6 Instruction Type:Provider Instructions for Treatment How to access health information online Indication:Impaired fasting glucose Start: 5 Instruction Type:Patient Education How to access health information online - Detail Indication:Impaired fasting glucose Start: 5 Instruction Type:Patient Education Patient Instructions Indication:Impaired fasting glucose Start: 5 Instruction Type:Provider Instructions for Treatment Patient Instructions Indication:Impaired fasting glucose Start:06-Feb-2015 Instruction Type:Provider Instructions for Treatment Patient Instructions Indication:Weight gain Start: 4 Instruction Type:Provider Instructions for Treatment Patient Instructions Indication:Weight gain Start: 3 Instruction Type:Provider Instructions for Treatment Patient Instructions Indication:Impaired fasting glucose Start: 3 Instruction Type:Provider Instructions for Treatment Patient Instructions Indication:Obesity Start: 3 Instruction Type:Provider Instructions for Treatment Patient Instructions Indication:Hypercholesterole lizy Start: 2 Instruction Type:Provider Instructions for Treatment [facility]; [facility] Work Phone: Family History No Family History Records FoundUnknown Family Member Name Dates Details Brother 1 Comments:kidney cancer - kb al cell diagnosed age 39 Status:Active Father Comments: age 73- smith d valvular heart disease and cad and diabetes- high chol Status:Active First Degree Relatives Comments:Cancer, Diabetes, H eart/lung dx, High cholesterol Status:Active Mother Comments:- cad dementia - as thma high chol htn- age 81- unknown cause Status:Active Summary Purpose Advance Directives No Advanced Directives Records Found Additional Source Comments Patient Care team informatio n (unrecognized section and content) Care Team Personnel Name: JUAN CARLOS VALLADARES MD Member Role: Primary Care Physician Address: Address: [address] [place], [place] [id number]- Care Team Related Persons Name: LUKE GARCIA INFORMATION SOURCE (unrecogn ized section and content) DATE CREATED AUTHOR 02/12/2024 [facility] ([place]) FOR RECORDS PERTAINING TO PATIENTS WHO ARE OR HAVE BEEN ENROLLED IN A CHEMICAL DEPENDENCY/SUBSTANCEABUSE PROGRAM, SOME INFORMATION MAY BE OMITTED. This clinical summary was aggregated from multiple sources. Caution should be exercised in using it in the provision of clinical care. This summary normalizes information from multiple sources, and as a consequence, information in this document may materially change the coding, format and clinical context of patient data. In addition, data may be omitted in some cases. CLINICAL DECISIONS SHOULD BE BASED ON THE PRIMARY CLINICAL RECORDS. [employer] [facility]. provides no warranty or guarantee of the accuracy or completeness of information in this document.
== END | disposition home or self-care (01) ==
PROVIDERS: PCP Nurse Practitioner Family; Referring Provider Internal Medicine Medical Oncology; Visit Provider Internal Medicine Medical Oncology
DX: N64.89 Other specified disorders of breast (principal); R92.8 Other abnormal and inconclusive findings on diagnostic imaging of breast
CPT/HCPCS: 76642; 77065

== ENCOUNTER → 2024-12-16 | Outpatient (CLI) | payer MEDICARE, SELFPAY ==
--- NOTE | 2024-12-16 08:37 | US_ITS ---
PROCEDURE: BREAST LIMITED UNILATERAL REASON FOR EXAM: LEFT BREAST MASS TECHNIQUE: Targeted ultrasound of the left breast. COMPARISON: Comparison is made with prior mammogram done earlier in the day. FINDINGS: LEFT: Left breast ultrasound was targeted to the lateral aspect of the left breast.. The palpable lump corresponds to a 4 mm x 2 mm x 4 mm hypoechoic irregular nodule at the 3 o'clock position of the breast at 8 cm from the nipple. Biopsy recommended. US/Breast Limited Unilateral IMPRESSION: BI-RADS 4: SUSPICIOUS ABNORMALITY. Follow-up code: Biopsy. Reading Location: [id number]
--- NOTE | 2024-12-16 08:49 | BI_ITS ---
PROCEDURE: DIAG MAMM W/CAD, BILAT. Magnification spot views of the right breast as well as true lateral views were obtained as well. REASON FOR EXAM: F, Age 68 y/o , LEFT BREAST MASS; H/O DCIS. Prior left lumpectomy. Palpable lump. Mother and grandmother with breast cancer. TECHNIQUE: Bilateral screening digital breast tomosynthesis with 2D and 3D images. Computer aided detection. COMPARISON: Prior exam(s) dating back to comparison is made with prior study dated July 29, 2024.. FINDINGS: The patient is status post lumpectomy in the anterior upper lateral retroareolar region. Postoperative changes are seen. No mass lesion is seen at this time. Increased microcalcifications in the anterior upper lateral aspect of the right breast. Biopsy recommended. No suspicious masses, areas of developing architectural distortion, or suspicious calcifications. BI/DIAG MAMM W/CAD, BILAT IMPRESSION: Biopsy of the calcifications in the upper-outer quadrant of the right breast. Sonographic correlation of the palpable lump in the left breast. Category 4. Follow-up code: Sonographic follow-up for left breast mass. The patient will be notified of the results by letter. Reading Location: [place]
== END | disposition home or self-care (01) ==
PROVIDERS: PCP Nurse Practitioner Family; Referring Provider Nurse Practitioner Family; Visit Provider Nurse Practitioner Family
DX: N63.20 Unspecified lump in the left breast, unspecified quadrant (principal); Z86.000 Personal history of in-situ neoplasm of breast; R92.8 Other abnormal and inconclusive findings on diagnostic imaging of breast
CPT/HCPCS: 76642; 77062; 77066; G0279

== ENCOUNTER 2024-12-22 10:29 | Outpatient (CLI) | payer MEDICARE, SELFPAY ==
--- NOTE | 2024-12-22 08:00 | BRBX_PTH ---
PATIENT: PARVIZ GARCIA LOC: [facility] U#:[id number] AGE/SX: 68/F ROOM: RE12/22/[address]: Dr. Darerl Lacy MD : 1955 BED: DIS: 12/22/2024 SPEC #: [id number] RECD: 12/22/24 10:39 STATUS: PRETTY REQ #: [id number] MARTINA: 12/22/24 08:[address]: Darrel Lacy DEPT: SURGICAL PATHOLOGY RECD BY: Salvador Kenney ENTERED: 12/22/24 10:39 SP TYPE: BREAST BX OTHR DR: Nanda Mckay, CUTTER HAND-C Tissues: A - Left breast, NOS Procedures: Immunohistochemical Stains Surgery Specimen Level IV IHC Stain ADDITIONAL HEADER OPERATION: Left breast biopsy PRE-OP DIAGNOSIS: Left breast nodule TISSUE SUBMITTED: A- Left breast tissue Ischemic Time: 1 minute Fixation Time: 11.5 hours MICROSCOPIC DIAGNOSIS A. 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 * Tubule 3, nuclear 2, mitosis 1 * ER: positive (95%, strong intensity). * WA: positive (25%, intermediate intensity). * [id number]: equivocal (2+) * [id number]: PENDING AT [facility], to be reported in an Addendum * Ki67q: proliferative index 25%. Note: Additional IHCs were performed. Ecadherin highlights the tumor cells, consistent with ductal origin. CK5/6 confirms the histologic impression of invasive carcinoma. ERG is negative for obvious lymphovascular invasion.. COMMENT Selected slides/images were reviewed in intradepartmental consultation by Dr Antwon Waters, [facility]. MICROSCOPIC DESCRIPTION Slides are reviewed. These tests were developed and their performance characteristics determined by [facility]. They may not have been cleared or approved by the U.S. Food and Drug Administration. The FDA has determined that such clearance or approval is not necessary. The above immunohistochemical/dualISH markers are ordered and reviewed by the Pathologist. ROGELIO DESCRIPTION A. Received in fixative is one container labeled with the patient's name and designated Left breast biopsy. The specimen consists of multiple fragments of yellow tissue that measures 1.8 x 0.7 x 0.1 cm. The specimen is totally submitted in one cassette. 12/22/2024 CPT:19931, 26242, 30020f7,79093v6 ADDENDUM ADDENDUM ADDENDUM ADDENDUM ADDENDUM ADDENDUM ADDENDUM ADDENDUM ADDENDUM ADDENDUM ADDENDUM ADDENDUM ADDENDUM ADDENDUM ADDENDUM ADDENDUM ADDENDUM ADDENDUM ADDENDUM 02/04/2025 12:17 ADDENDUM 02/04/2025 12:17 ADDENDUM 02/04/2025 12:17 ADDENDUM 02/04/2025 12:17 ADDENDUM 02/04/2025 12:17 This addendum is added to incorporate an outside pathology consultation report. The case was examined at [facility] (#[id number]) and the following diagnosis was rendered. A. Left breast, core biopsy: [id number]: Negative / not amplified HER2 SCORE REPORT: HER2 SCORE: NEGATIVE HER2/CEP17 RATIO: 1.1 HER2 COPY NUMBER/CELL: 3.3 Please see complete above mentioned consultation report in EMR
== END 2024-12-22 23:59 | disposition home or self-care (01) ==
LOC: LABSPEC 10:31
PROVIDERS: PCP Nurse Practitioner Family; Referring Provider Surgery; Visit Provider Surgery
DX: C50.912 Malignant neoplasm of unspecified site of left female breast (principal)
CPT/HCPCS: 88305; 88341; 88342

== ENCOUNTER 2025-01-06 08:03 | Outpatient (CLI) | payer MEDICARE, SELFPAY ==
--- NOTE | 2025-01-06 08:30 | BRBX_PTH ---
PATIENT: PARVIZ GARCIA LOC: [facility] U#:[id number] AGE/SX: 69/F ROOM: RE01/06/[address]: Dr. Darrel Lacy MD : 1955 BED: DIS: 01/06/2025 SPEC #: [id number] RECD: 01/06/25 11:28 STATUS: PRETTY REJules #: [id number] MARTINA: 01/06/25 08:[address]: Darrel Lacy DEPT: SURGICAL PATHOLOGY RECD BY: Salvador Kenney ENTERED: 01/06/25 11:28 SP TYPE: BREAST BX OTHR DR: Nanda Mckay, MANAGER SUMMER-C Tissues: A - Right breast, NOS Procedures: Immunohistochemical Stains Surgery Specimen Level IV IHC Stain ADDITIONAL HEADER OPERATION: Right stereotactic breast biopsy PRE-OP DIAGNOSIS: Right anterior upper lateral breast macrocalcifications TISSUE SUBMITTED: A- Right breast core tissue Ischemic Time: 1 minute Fixation Time: 6-72 hours MICROSCOPIC DIAGNOSIS A. Right Breast, anterior upper lateral, microcalcifications, core biopsy: - DCIS (ductal carcinoma in situ), multifocal, intermediate nuclear grade with comedonecrosis, at least 0.6 cm. - ER: negative - HI: negative Note: Additional IHCs utilized in the assessment - ER (A1,2,4) HI (A4) CK5/6 (A1,2,4,5) E-cadherin (A4,5) MICROSCOPIC DESCRIPTION Slides are reviewed. All matched controls reacted appropriately. These tests were developed and their performance characteristics determined by [facility]. They may not have been cleared or approved by the U.S. Food and Drug Administration. The FDA has determined that such clearance or approval is not necessary. The above immunohistochemical/dualISH markers are ordered and reviewed by the Pathologist. GROSS DESCRIPTION A. Received in formalin in a container labeled with the patient's name, date of , and right breast core tissue are approximately 8 acosta-yellow core biopsies of fibrofatty tissue ranging from 1.3 cm in length by 0.4 cm in diameter to 2.5 cm in length by 0.7 cm in diameter. In addition, there are multiple core biopsy fragments measuring 2.5 x 1.0 x 0.4 cm in aggregate. The specimen is submitted in toto as follows:A1-4. 2 cores per cassetteA5. Core biopsy fragments Cold ischemic time: 1 minute. Total formalin fixation time: Between 6 and 72 hours. [facility] 01-06-2025 CPT:68358,11170,07048b2,53645x1
--- NOTE | 2025-01-06 09:17 | PCM.OPRPT ---
Problems Associated Problem List Diagnoses (1) Abnormal mammogram of right breast: Procedures Integumentary 16xxx-193xx: 16742 Bx breast 1st lesion [facility] Operative Report (Standard) Operative Information Date of Procedure: 01/06/25 Pre-Operative Diagnosis: Abnormal right breast mammogram/microcalcifications Post-Operative Diagnosis: Same Surgery/Procedure Performed: Right breast stereotactic biopsy channel supervisor: No Type of Anesthesia: Local Procedure Start Time: 08:30 Procedure Stop Time: 09:00 Select all DRAINS/GRAFTS/IMPLANTS that apply: Implanted device Implanted device details: Post procedure marking clip Special Medications: None Estimated Blood Loss: Minimal Specimen collected: Yes Description of specimen(s) removed: Right breast tissue containing microcalcifications Description of surgery: The patient is a 69-year-old female recently seen through the office with bilateral breast lesions seen on mammogram. The left breast lesion was biopsied in the office under ultrasound guidance. Pathology is still pending. The right breast microcalcifications required a stereotactic biopsy for which she is presenting for today. We discussed the details of the planned procedure and she wishes to proceed. After obtaining informed consent, the patient was placed prone on the mammotome table. The right breast was suspended through the aperture and the table. Compression views were then obtained until the area of microcalcifications were identified. At this point 2 additional views were then performed in order to target upon the region of calcifications. In this vicinity there were microcalcifications as well as macrocalcifications. We tried to target upon the smaller microcalcifications. Once the coordinates were obtained, the skin of the breast was then prepped and draped in the usual sterile manner. Local anesthetic was then injected into the area. A #11 blade was then used to make a small skin incision. Through this incision, the stereotactic biopsy probe was inserted to the correct depth. 2 views were then obtained to confirm appropriate positioning of the biopsy device. This was confirmed. Next circumferential suction biopsies were then obtained with good tissue sampling. Patient tolerated this portion of the procedure well. The retrieved tissue was then radiographed and confirmed presence of numerous microcalcifications. At this point a marking clip was then deployed. A post clip placement image was then obtained and confirmed position of the clip. The patient was then taken out of compression. Steri-Strip dressing was applied. She tolerated the procedure well. Surgical Findings: Micro calcifications of the right breast successfully removed. Complications Complications: Yes Complication Details: None Admit VTE Documentation VTE Present on Admission: No VTE Mechan Device Prophylaxis: None VTE Pharm Prophylaxis ordered?: No Reason prophylaxis not ordered: Treatment Not Indicated
== END 2025-01-06 23:59 | disposition home or self-care (01) ==
LOC: BIRAD 08:07
PROVIDERS: PCP Nurse Practitioner Family; Referring Provider Surgery; Visit Provider Surgery
DX: D05.11 Intraductal carcinoma in situ of right breast (principal)
CPT/HCPCS: 19081; 88305; 88341; 88342

== ENCOUNTER → 2025-01-28 | Outpatient (CLI) | payer MEDICARE, SELFPAY ==
--- NOTE | 2025-01-28 07:21 | CT_ITS ---
PROCEDURE: CT CHEST, ABD, PEL W/CONTRAST 01/28/2025 REASON FOR EXAM: BREAST CA-IV ONLY TECHNIQUE: Chest, abdomen and pelvis CT with intravenous contrast. Contiguous axial scans of 2.5 mm slice thicknesses. Sagittal and coronal reconstruction images were obtained. One or more dose reduction techniques were used (e.g., automated exposure control, adjustment of mA and/or kv according to patient size, use of iterative reconstruction technique). PATIENT PREPARATION: Per protocol ORAL CONTRAST TYPE: Not given. CONTRAST: Isovue 370 VOLUME: 95mL RADIATION DOSE SUMMARY: CTDlvol: 51.33 mGy DLP: 1622.48 mGycm COMPARISON: No relevant prior. FINDINGS: CT CHEST: Lungs and Airways: The lungs are normally expanded and clear. Hypoventilatory changes in the dependent lungs. Pleura: No pleural effusion. No pneumothorax. Heart: Normal heart size Pericardium: No thickening. No pericardial effusion. Coronary arteries: Atherosclerotic calcific changes. Thoracic Aorta: Mild atherosclerotic calcifications. No aneurysm. Pulmonary Vessels: No large central filling defects. Mediastinum: No mediastinal hilar or axillary lymphadenopathy. Thyroid:Calcified left thyroid gland nodule measuring 1.0 cm, axial image 13. Bones: Mild multilevel spondylosis Soft tissues: Metallic biopsy clip, right breast. CT ABDOMEN / PELVIS: Liver: Mass of the evaluation in the dome of the liver measuring 1.9 cm, axial image 13. a small subcentimeter cyst in the left hepatic lobe, axial image 18. Gallbladder: Small calcifications layer dependently, axial images 41 and 42. Spleen: Unremarkable. Pancreas: No masses. Normal parenchymal attenuation. Adrenals: No nodules. Kidneys: Excrete contrast material symmetrically. Bilateral extrarenal pelves. No suspicious masses. Kidneys are normal in size. Bladder: Unremarkable. Reproductive Organs: Lobulated and enlarged uterus. Bowel: Unremarkable. Appendix: No signs of appendicitis. Lymph nodes: No suspicious lymphadenopathy. Vasculature: Atherosclerotic aortoiliac calcific disease. Peritoneum / Retroperitoneum: No free fluid. No free air. No masses are identified. Anterior abdominal wall: Left-sided fat containing spigelian hernia measuring 7 0.2 x 4.0 cm. Bones: Unremarkable. CT/CT Chest, Abd, Pel w/Contrast IMPRESSION: 1. Unremarkable computed tomography of the chest. 2. Small hepatic cysts. 3. Cholelithiasis. 4. Lobulated and enlarged uterus raising concern for fibroids. 5. Left spigelian hernia. 6. Other nonacute findings detailed above. Reading Location: [place]
[2025-01-28 11:37] LABS: CREATININE FINGERSTICK < 1.0 mg/dL (0.55-1.02); EGFR FINGERSTICK > 60.0000 mL/min (>60)
== END | disposition home or self-care (01) ==
PROVIDERS: PCP Nurse Practitioner Family; Referring Provider Internal Medicine Medical Oncology; Visit Provider Internal Medicine Medical Oncology
DX: C50.812 Malignant neoplasm of overlapping sites of left female breast (principal); Z17.0 Estrogen receptor positive status [ER+]
CPT/HCPCS: 71260; 74177; Q9967

== ENCOUNTER → 2025-02-07 | Outpatient (CLI) | payer MEDICARE, SELFPAY ==
--- NOTE | 2025-02-07 09:25 | NM_ITS ---
PROCEDURE: BONE SCAN WHOLE BODY 02/07/2025 REASON FOR EXAM: BREAST CA TECHNIQUE: Whole-body bone scan. RADIOPHARMACEUTICAL: 24.6 mCi Technetium-99m MDP IV. COMPARISON: CORRELATION WITH EXISTING RELEVANT IMAGING STUDIES (i.e. x-ray, MRI, CT, etc.): No existing relevant imaging study available , patient did not have a previous relevant imaging study. FINDINGS: Mild degenerative changes are seen of the spine and knees. [id number]-left shoulder area degenerative changes are noted. No findings are seen to suggest the presence of osseous metastatic disease. NM/Bone Scan Whole Body IMPRESSION: No scintigraphic evidence of osseous metastatic disease. Reading Location: [place] [id number]
== END | disposition home or self-care (01) ==
PROVIDERS: PCP Nurse Practitioner Family; Referring Provider Internal Medicine Medical Oncology; Visit Provider Internal Medicine Medical Oncology
DX: C50.812 Malignant neoplasm of overlapping sites of left female breast (principal)
CPT/HCPCS: 78306; A9503

== ENCOUNTER → 2025-06-08 | Outpatient (CLI) | payer MEDICARE, SELFPAY ==
--- NOTE | 2025-06-08 08:34 | BD_ITS ---
PROCEDURE: DEXA BONE DENSITY STUDY 06/08/2025 REASON FOR EXAM: HX OF BREAST CA F, age 69 y/o . Postmenopausal. TECHNIQUE: Procedure Code: BDDBD Modality: DX Procedure: DEXA BONE DENSITY STUDY COMPARISON: Prior study dated February 20, 2023. FINDINGS: BMD and T-SCORES Lumbar spine: 0.905 g/cm2, T-score -1.2 Levels: L1 through L4 Change from prior: Loss of 7.5%. Left femoral neck: 0.739 g/cm2, T-score -1.0 Femoral neck comparison data not recommended for monitoring change. Left total hip: 0.898 g/cm2, T-score -0.4 Change from prior: Loss of 10.2%. Right femoral neck: 0.732 g/cm2, T-score -1.1 Femoral neck comparison data not recommended for monitoring change. Right total hip: 0.862 g/cm2, T-score -0.7 Change from prior: Loss of 13.8%. The World Health Organization has defined the following categories based on bone density: Normal bone density: T-score equal to or greater than -1.0 Osteopenia: T-score between -1.0 and -2.5 Osteoporosis: T-score equal to or less than -2.5 FRAX (or Comparable) Fracture Risk Assessment: 10 Year Probability of Fracture: Major Osteoporotic Fracture: 8% Hip Fracture: 0.7% (Note: FRAX is not to be reported in setting of normal range bone density, osteoporosis on DEXA, known history of osteoporosis, prior osteoporotic hip or vertebral fracture, or for any patient undergoing pharmacological treatment for bone loss.) The National Osteoporosis Foundation (NOF) recommends pharmacological treatment for patients with a FRAX 10-year risk of 3% or higher for a hip fracture, or 20% or higher for a major osteoporotic fracture, to prevent osteoporosis and reduce fracture risk. The patient does meet the pharmacological treatment recommendations for prevention of osteoporosis. BD/Dexa Bone Density Study IMPRESSION: OSTEOPENIA. Recommend follow-up as clinically warranted. Reading Location: [place] [address]
== END | disposition home or self-care (01) ==
LOC: OPBD 08:24
PROVIDERS: PCP Nurse Practitioner Family; Referring Provider Internal Medicine Medical Oncology; Visit Provider Internal Medicine Medical Oncology
DX: Z78.0 Asymptomatic menopausal state (principal); M85.80 Other specified disorders of bone density and structure, unspecified site; Z85.3 Personal history of malignant neoplasm of breast
CPT/HCPCS: 77080

== ENCOUNTER → 2025-08-26 | Outpatient (CLI) | payer MEDICARE, SELFPAY ==
[2025-08-26 11:46] LABS: Hematocrit 49.2 % (37-47); Hemoglobin 15.7 g/dL (12.0-15.0); Immature Granulocytes Count 0.020 X10^3/uL (0.0-0.0); Mean Corp Hgb Conc 31.9 g/dL (32-36); Mean Corpuscular Volume 89.0 fL (81-99); Mean Platelet Vol. 11.7 fl (6.2-12.0); NRBC Flagged by Analyzer 0 % (0-5); Platelet Count 176 K/mm3 (150-450); RBC Distribution Width CV 14.4 % (11.6-14.6); RBC Distribution Width SD 47.1 fl (35.1-43.9); Red Blood Count 5.53 M/mm3 (4.2-5.4); White Blood Count 6.8 K/mm3 (4.4-11.0)
[2025-08-27 07:08] LABS: CA 15-3 8.0 U/mL (0.0-25.0); CA 27.29 14.1 U/mL (0.0-38.6); Carcinoembryonic Antigen 2.4 ng/mL (0.0-4.7)
== END | disposition home or self-care (01) ==
LOC: LAB 11:13
PROVIDERS: PCP Nurse Practitioner Family; Referring Provider Internal Medicine Medical Oncology; Visit Provider Internal Medicine Medical Oncology
DX: C50.812 Malignant neoplasm of overlapping sites of left female breast (principal); Z17.0 Estrogen receptor positive status [ER+]; D05.11 Intraductal carcinoma in situ of right breast; M85.80 Other specified disorders of bone density and structure, unspecified site; Z78.0 Asymptomatic menopausal state
CPT/HCPCS: 36415; 80053; 82378; 83615; 85025; 86300; 86301; 86304

== ENCOUNTER → 2025-08-30 | Outpatient (CLI) | payer MEDICARE, SELFPAY ==
--- OUTSIDE RECORDS SUMMARY | 2025-08-30 08:35 | XMS RPT_ITS | CCD ---
Author Organization [facility] Care Team Providers Care Railway Signal Technician Name Role Phone Jim Sherie ORNELAS Unavailable Unavailab le York, Ilene L Unavailable Unavailable York, Ilene L Unavailable Unavailable York, Ilene L Unavailable Unavailable York, Ilene L Unavailable Unavailable York, Ilene L Unavailable Unavailable Citlali Brannone M Unavailable Unavailable Gail Brannon M Unavailable Unavailable Dr. Mike Shafer Primary Care Provider Dr. Mike Shafer Referring Provider Dr. Nicko Castellanos Attending Provider Dr. Brando Chacon Attending Provider Dr. Mike Shafer Primary Care Provider Dr. Mike Shafer Referring Provider Dr. Mike Shafer Primary Care Provider Dr. Mike Shafer Referring Provider Dr. Brando Chacon Attending Provider LANA Leslie Attending Provider Dr. Mike Shafer Primary Care Provider Dr. Mike Shafer Referring Provider LANA Leslie Attending Provider Dr. Brando Chacon Attending Provider Dr. Mike Shafer Primary Care Provider Dr. Mike Shafer Referring Provider LANA Leslie Attending Provider Care Physician, No Primary Primary Care Provider Unavailable Fast DO, Analilia A Unavailable Andrea Anjali Unavailable Unavailable Unavailable Unavailable Dr. Mike Shafer Referring Provider Dr. Nicko Castellanos Attending Provider Dr. Freida Napier Primary Care Provider Dr. Mike Shafer Referring Provider Unavailable Dr. Tila Reddy Attending Provider Dr. Chelsea Gilman Referring Provider [phone] Freida Napier Primary Care Provider Dr. Tila Reddy Attending Provider Dr. Chelsea Gilman Referring Provider [phone] Freida Napier Referring Provider Dr. Brando Chacon Attending Provider Care Physician, No Primary Referring Provider Un available Anuj COMPUTER RECYCLING WORKER-Autumn Sanabria Attending Provider HOLLIS BOOKER, MIKE Primary Care Physician LINDA BOOKER, GINA Attending Unavailable MIKE SHAFER MD Primary Care Unavailable Maria Isabel COMPUTER RECYCLING WORKER-C, Lester Primary Care Provider Maria Isabel COMPUTER RECYCLING WORKER-C, Lester Referring Provider Anuj BACK-CElly Attending Provider Judy COMPUTER RECYCLING WORKER-C, Daysi Attending Provider Judy COMPUTER RECYCLING WORKER-C, Daysi Referring Provider Dr. Darrel Lacy MD Attending Provider Dr. Darrel Lacy MD Referring Provider Maria Isabel COMPUTER RECYCLING WORKER-C, Lester Primary Care Provider Maria Isabel COMPUTER RECYCLING WORKER-C, Lester Referring Provider [phone] Darrel Lacy MD Other Provider MARIA ISABEL, LESTER Primary Care Unavailable Ines BOOKER, Dr. Michaels Attending Provider Hollis BOOKER, Dr. Mckeon Primary Care Provider Mason Shafer MD, Dr. Mckeon Referring Provider Unavaillenard Chacon MD, Dr. Michaels Referring Provider BRANDO CHACON MD Primary Care Physician Anuj COMPUTER RECYCLING WORKER-C, Elly Attending Provider Maria Isabel COMPUTER RECYCLING WORKER-C, [place] Primary Care Provider Maria Isabel COMPUTER RECYCLING WORKER-C, Lester Referring Provider Bambi BOOKER, Dr. Darrel Caldwell Attending Provider Mukul BOOKER, Dr. Tran Attending Provider Ki COMPUTER RECYCLING WORKER-C, Beverly Attending Provider Maria Isabel COMPUTER RECYCLING WORKER-C, [place] Primary Care Provider Ines BOOKER, Dr. Michaels Attending Provider Ines BOOKER, Dr. Michaels Referring Provider Maria Isabel COMPUTER RECYCLING WORKER-C, Lester Referring Provider [phone] Mukul BOOKER, Dr. Tran Attending Provider Hollis BOOKER, Dr. Mckeon Primary Care Provider Mason Shafer MD, Dr. Mckeon Referring Provider Unavaillenard Orozco MD, Claudio Unavailable NONE, NONE Unavailable Unavailable Ines BOOKER, Brando Unavailable Maria Isabel COMPUTER RECYCLING WORKER-C, [place] Primary Care Physician Maria Isabel COMPUTER RECYCLING WORKER-C, Lester Referring Provider [phone] Anuj COMPUTER RECYCLING WORKER-C, Elly Attending Physician Mukul BOOKER, Dr. Tran Attending Physician Ki BACK-C, Beverly Attending Physician Ines BOOKER, Dr. Michaels Attending Physician Hollis BOOKER, Dr. Mckeon Primary Care Physician Yaya Chacon MD, Dr. Michaels Referring Provider KLENOTIC DO, JOSH R Attending Unavailab Amelie BOOKER, [place] Primary Care Unavailable PAM BOOKER, CLAUDIO Admitting Unavailable PAM BOOKER, CLAUDIO Consulting Unavailable PAM BOOKER, CLAUDIO Attending Unavailable INES BOOKER, [place] Primary Care Unavailable ELVA BOOKER, JONAS Consulting Unavailable MD ADELAIDE FUNK Consulting Unavailabl e TIM DO, ZEYNEP Consulting UnavailJOANA Mcpherson MD Consulting Unavailable KLENOTIC DO, JOSH R Consulting Unavailab le KLEAR DO, JOSH R Attending Unavailab Mckenzie BOOKER, [place] Primary Care Unavailable HOLLIS BOOKER, [place] Primary Care Unavailable LAURENT BOOKER, DR RIVERS Attending Unavailabl e KLENOTIC DO, JOSH R Attending Unavailab Mckenzie BOOKER, [place] Primary Care Unavailable KLENOTIC DO, JOSH Harrell Attending Unavailab jean claude CHACON MD, [place] Primary Care Unavailable Maria Isabel, [place] Primary Care Unavailable Lizeth Mckoy Attending Unavailable Maria Isabel, [place] Primary Care Unavailable Maria Isabel, [place] Referring Unavailable Prah, Brando Attending Unavailable Maria Isabel, [place] Primary Care Unavailable Maria Isabel, [place] Referring Unavailable Prah, Brando Attending Unavailable Maria Isabel, [place] Primary Care Unavailable WanekDarrel A Referring Unavailable WanekDarrel Attending Unavailable Maria Isabel, [place] Referring Unavailable Elly Leslie Attending Unavailable Maria Isabel, [place] Primary Care Unavailable Wanek Darrel A Consulting Unavailable Wanek, Darrel A Referring Unavailable WanekDarrel A Attending Unavailable Maria Isabel, [place] Primary Care Unavailable Maria Isabel, [place] Referring Unavailable WanekDarrel Attending Unavailable Maria Isabel, [place] Primary Care Unavailable Maria Isabel, [place] Primary Care Unavailable Prah Brando Referring Unavailable Prah, Brando Attending Unavailable Maria Isbael, [place] Primary Care Unavailable Prah, Brando Referring Unavailable Prah, Brando Attending Unavailable Maria Isabel, [place] Primary Care Unavailable Wanek, Darrel A Referring Unavailable WanDarrel barron A Attending Unavailable Elly Leslie Attending Unavailable Maria Isabel, [place] Primary Care Unavailable Maria Isabel, Lester Referring Unavailable Maria Isabel, [place] Primary Care Unavailable Prah, Brando Attending Unavailable Prah, Brando Referring Unavailable Hollis, Mike Referring Unavailable Hollis, [place] Primary Care Unavailable Prah, Brando Attending Unavailable Maria Isabel, [place] Primary Care Unavailable Judy COMPUTER RECYCLING WORKER, Daysi Referring Unavailable Judy COMPUTER RECYCLING WORKER, Daysi Attending Unavailable Maria Isabel, [place] Referring Unavailable Maria Isabel, Lester Primary Care Unavailable Brando Chacon Attending Unavailable Maria Isabel, Lester Referring Unavailable PrahBrando Attending Unavailable Maria Isabel, Lester Primary Care Unavailable Maria Isabel, Lester Primary Care Unavailable Maria Isabel, Lestre Referring Unavailable Judy COMPUTER RECYCLING WORKERDaysi Attending Unavailable Maria Isabel, Lester Primary Care Unavailable Maria Isabel, Lester Referring Unavailable Darrel Lacy Attending Unavailable Maria Isabel, L[place] Referring Unavailable Chelsea Gilman Attending Unavailable Maria Isabel, L[place] Primary Care Unavailable Maria Isabel, Lester Primary Care Unavailable Maria Isabel, Lester Referring Unavailable Chelsea Gilman Attending Unavailable Maria Isabel, Lester Referring Unavailable Maria Isabel, Lester Primary Care Unavailable Ki COMPUTER RECYCLING WORKER, [place] Attending Unavailable Allergies Allergy Classification Reported Allergen(s) Allergy Type Date of Onset Reaction(s) Facility (2 sources) iso-sulfan blue; Translations: [isosulfan blue] Drug Allergy Hives [facility] (1 source) Contrast media Drug allergy (disorder) 03-31-2025 [facility] Medications Current Medications Medication Drug Class(es) Dates Sig (Normalized) Sig (Original) 0.5 ML tirzepatide 10 MG/ML Auto-Injector [Mounjaro] (3 sources) Start: 02-06-2024 Mounjaro 5 mg/0.5 mL subcutaneous solution INJECT THE CONTENTS OF 1 PEN UNDER THE SKIN ONCE WEEKLY Start Date: 02/06/24 Status: Ordered Repeat number: 1 Start: 02-06-2024 Mounjaro 5 mg/ 0.5 mL subcutaneous solution INJECT THE CONTENTS OF 1 PEN UNDER THE SKIN ONCE WEEKLY Start Date: 02/06/24 Status: Ordered acetaminophen 500 mg oral tablet (1 source) Start: 03-25-2025 acetaminophen 500 mg oral tablet Dose : 1,000 mg = 2 tab(s), Oral, TID, PRN as needed for pain, # 20 tab(s), 1 Refill(s), Pharmacy: [facility], 154.9, cm, 03/22/25 21:28:00 EDT, Height, kg, 03/22/25 21:28:00 EDT, Dosing Weight Start Date: 03/25/25 Status: Ordered Quantity: 20.0 Unit: tab(s) Repeat number: 2 anastrozole 1 mg oral tablet (2 sources) Aromatase Inhibitor Start: 06-23-2025 take 1 tablet by mouth once daily Anastrozole 1 mg tablet Active 1 mg PO daily 60 60 6 June 23, 2025 12:00am Complies with drug therapy cholecalciferol 0.025 mg oral tablet (20 sources) Vitamin D Start: 05-30-2020 take 1 tablet by mouth once daily Cholecalciferol (Vitamin D3) 1,000 UNIT tablet Active 1000 U PO DAILY May 30, 2020 12:00am Complies with drug therapy Start: 06-27-2015 End: 07-27-2015 take 2 tablets by mouth once daily in the morning VITAMIN D3, 2000UNIT (Oral Capsule) 2 tabs Capsule qam for 30 days Quantity: 60 {Capsule} Refills: 0 Ordered: 27-Jun-2015 Fast DOJudaha A Fast DO, Analilia A Start : 27-Jun-2015 End : 27-Jul-2015 Inactive cyclobenzaprine hydrochloride 5 mg oral tablet (20 sources) Muscle Relaxant Start: 12-10-2021 take 1 tablet by mouth once daily as needed for muscle spasms Cyclobenzaprine 5 mg tablet Active 5 mg PO DAILY as needed for muscle spasm December 10, 2021 1:00am Complies with drug therapy Start: 02-16-2016 take 1 tablet by beto three times daily as needed CYCLOBENZAPRINE HCL, 10MG (Oral Tablet) 1 (one) Tablet tid, prn for 30 days Quantity: 30 {Tablet} Refills: 1 Ordered: 16-Feb-2016 Fast DO Analilia A Fast DO, Analilia A Start : 16-Feb-2016 Active Comments: thirty Start: 07-27-2013 End: 02-06-2015 take 1 tablet by mouth three times daily as needed CYCLOBENZAPRINE HCL, 10MG (Oral Tablet) 1 (one) Tablet tid, prn for 30 days Quantity: 90 {Tablet} Refills: 1 Ordered: 06-Feb-2015 Anjali Mendez Start : 27-Jul-2013 End : 06-Feb-2015 Discontinued Comment on above: thirty doxycycline hyclate 100 mg oral tablet (16 sources) Tetracycline-class Drug Start: 03-25-2025 End: 04-14-2025 doxycycline hyclate 100 mg oral tablet Dose : 100 mg = 1 tab(s), Oral, BID, while the drain is in, # 40 tab(s), 0 Refill(s), Pharmacy: [facility], 154.9, cm, 03/22/25 21:28:00 EDT, Height, 87, kg, 03/22/25 21:28:00 EDT, Dosing Weight Start Date: 03/25/25 Stop Date: 04/14/25 Status: Ordered Quantity: 40.0 Unit: tab(s) Repeat number: 1 End: 05-14-2017 take 1 tablet by mouth twice daily DOXYCYCLINE HYCLATE 50 MG CAPS One tablet by mouth twice daily DOXYCYCLINE HYCLATE [id number] Ilene Leger Papa escitalopram 10 mg oral tablet (20 sources) Serotonin Reuptake Inhibitor Start: 02-25-2017 take 1 tablet by mouth once daily Escitalopram Oxalate 10 MG tablet Active 10 mg PO DAILY February 25, 2017 12:00am Complies with drug therapy Start: 02-16-2016 End: 02-23-2015 take 1 tablet by mouth once daily LEXAPRO, 10MG (Oral Tablet) 1 tab Tablet(s) qd for 90 days Quantity: 90 {Tablet} Refills: 3 Ordered: 16-Feb-2016 Anjali Mendez Start : 16-Feb-2016 End : 23-Feb-2015 Active take 1 tablet by beto once daily escitalopram 10 mg tablet 1 tablet by mouth once a day active Shaunna Green RN [facility] 24 hr fesoterodine fumarate 4 mg extended release oral tablet (10 sources) Start: 02-09-2025 take 1 tablet by mouth once daily Fesoterodine 4 mg tablet extended release 24 hr Active 4 mg PO daily March 10, 2025 12:00am Complies with drug therapy ibuprofen 800 mg oral tablet (1 source) Nonsteroidal Anti-inflammatory Drug Start: 03-25-2025 ibuprofen 800 mg oral tablet Dose : 800 mg = 1 tab(s), Oral, TID, PRN as needed for pain, # 20 tab(s), 1 Refill(s), Pharmacy: [facility], 154.9, cm, 03/22/25 21:28:00 EDT, Height, kg, 03/22/25 21:28:00 EDT, Dosing Weight Start Date: 03/25/25 Status: Ordered Quantity: 20.0 Unit: tab(s) Repeat number: 2 meloxicam 15 mg oral tablet (11 sources) Nonsteroidal Anti-inflammatory Drug Start: 03-11-2024 take 1 tablet by mouth once daily Meloxicam 15 mg tablet Active 15 mg PO daily March 11, 2024 12:00am Complies with drug therapy methocarbamol 750 mg oral tablet (4 sources) Muscle Relaxant Start: 05-16-2025 take 1 tablet by mouth three times daily Methocarbamol 750 mg tablet Active 750 mg PO THREE TIMES A DAY May 16, 2025 12:00am Complies with drug therapy Myrbetriq (3 sources) beta3-Adrenergic Agonist Start: 02-06-2024 Myrbetriq Oral, qDay, 0 Refill(s) Start Date: 02/06/24 Status: Ordered Repeat number: 1 Start: 02-06-2024 Myrbetriq Oral , qDay, 0 Refill(s) Start Date: 02/06/24 Status: Ordered mupirocin 0.02 mg/mg topical ointment (1 source) RNA Synthetase Inhibitor Antibacterial Start: 03-11-2025 mupirocin 2% topical ointment Apply 1 nina, Topical, BID, Bilateral intranasal application twice daily x 5 days pre-surgery &/or as many days pre-surgery as possible., Apply to: nostril, each, # 22 gram(s), 0 Refill(s), Pharmacy: [facility] Delivery, Ointment, 155, cm, 03/11/25 8:49:00 EDT, Height, 89.4, kg, 03/11/25 8:49:00 EDT, Dosing Weight Start Date: 03/11/25 Status: Ordered Quantity: 22.0 Unit: g Repeat number: 1 24 hr oxybutynin chloride 5 mg extended release oral tablet (6 sources) Cholinergic Muscarinic Antagonist Start: 12-10-2021 take 5 mg by mouth once daily Oxybutynin Chloride Active 5 MG PO DAILY December 10, 2021 1:00am oxyCODONE hydrochloride 5 mg oral tablet (1 source) Opioid Agonist Start: 03-25-2025 End: 03-29-2025 oxyCODONE 5 mg oral tablet ( IMMEDIATE release ) Dose : 5 mg = 1 tab(s), Oral, q8hr, PRN as needed for pain, BREAKTHROUGH PAIN ONLY if other meds are not enough to control pain., # 20 tab(s), 0 Refill(s), Pharmacy: [facility], S/P mastectomy Breast cancer, 154.9, cm, 03/22/25 21:28:00 EDT, Height, 87, kg, 03/22/25 21:28:00 EDT, Dosing Weight Start Date: 03/25/25 Stop Date: 03/29/25 Status: Ordered Quantity: 20.0 Unit: tab(s) Repeat number: 1 Indications: Malignant neoplasm of unspecified site of unspecified female breast; Acquired absence of unspecified breast and nipple; traZODone hydrochloride 150 mg oral tablet (20 sources) Serotonin Reuptake Inhibitor Start: 02-19-2016 take 1 tablet by mouth at bedtime Trazodone 150 MG tablet Active 150 mg PO AT BEDTIME January 10, 2017 12:00am Complies with drug therapy valACYclovir 500 mg oral tablet (20 sources) Herpesvirus Nucleoside Analog DNA Polymerase Inhibitor, Herpes Simplex Virus Nucleoside Analog DNA Polymerase Inhibitor, Herpes Zoster Virus Nucleoside Analog DNA Polymerase Inhibitor Start: 05-30-2020 take 1 tablet by mouth once daily Valacyclovir 500 MG tablet Active 500 mg PO DAILY May 30, 2020 12:00am Complies with drug therapy Start: 02-16-2016 End: 05-16-2016 VALTREX, 500MG (Oral Tablet) 1 tab Tablet qd unless breakout take 2 tabs for 90 days Quantity: 100 {Tablet} Refills: 0 Ordered: 16-Feb-2016 Fast DO, Analilia A Fast DO, Analilia A Start : 16-Feb-2016 End : 16-May-2016 Inactive Vibegron (13 sources) Start: 05-17-2025 take 1 tablet by beto th once daily Vibegron (Gemtesa) 75 mg tablet Active 75 mg PO daily 90 May 17, 2025 12:00am Complies with drug therapy Start: 05-17-2025 take 1 tablet by beto th once daily Vibegron (Gemtesa) 75 mg tablet Active 75 mg PO daily 90 May 17, 2025 12:00am Start: 03-11-2024 End: 09-09-2024 take 1 tablet by mouth once daily Vibegron (Gemtesa) 75 mg tablet Discontinued 75 mg PO DAILY March 11, 2024 12:00am September 09, 2024 4:28pm VIBEGRON (1 source) take 1 tablet by beto th once daily Gemtesa 75 mg tablet 1 tablet by mouth once a day active Mabel Cruz RN [facility] Vitamin D3 (3 sources) Start: 03-27-2021 Vitamin D3 Dos e : 1,000 unit(s) = 1 tab(s), Oral, Daily, 0 Refill(s) Start Date: 03/27/21 Status: Ordered Repeat number: 1 Start: 03-27-2021 Vitamin D3 Dos e : 1,000 unit(s) = 1 tab(s), Oral, Daily, 0 Refill(s) Start Date: 03/27/21 Status: Ordered Vitamin D3 25 mcg (1000 intl units) oral capsule (1 source) Start: 03-11-2025 Vitamin D3 25 mcg (1000 intl units) oral capsule Dose : 25 mcg = 1 cap(s), Oral, qAM, 0 Refill(s) Start Date: 03/11/25 Status: Ordered Repeat number: 1 Completed/Discontinued Medications Medication Drug Class(es) Dates Sig (Normalized) Sig (Original) acetaminophen 325 mg / oxyCODONE hydrochloride 5 mg oral tablet (14 sources) Opioid Agonist Start: 05-01-2023 End: 03-11-2024 Oxycodone-Acetamin ophen (Percocet) 5-325 mg tablet Discontinued 1 {tbl} PO Q8H as needed for pain 3 1 0 May 01, 2023 March 11, 2024 3:09pm Lesion of urinary bladder Bladder disorder, unspecified betamethasone 0.5 mg/ml / clotrimazole 10 mg/ml topical cream (20 sources) Azole Antifungal, Corticosteroid Start: 07-29-2018 End: 09-23-2018 Clotrimazole-Betam ethasone 1-0.05 % cream Discontinued 1 NMA TOPICAL TWICE A DAY 45 02 11July 29, 2018 12:00am September 22, 2018 1:00am September 23, 2018 1:08am Start: 07-29-2018 End: 09-23-2018 Clotrimazole-Betamethasone D iscontinued 1 APPLIC TOPICAL TWICE A DAY 45 July 29, 2018 12:00am September 23, 2018 1:08am bifidobacterium infantis 4 mg oral capsule (1 source) Start: 08-07-2010 End: 07-22-2011 take 1 capsule by mouth once daily ALIGN (Oral Capsule) 1 Capsule daily for 0 days Quantity: 30 {Capsule} Refills: 0 Ordered: 22-Jul-2011 Reshma Kidd RN Start : 07-Aug-2010 End : 22-Jul-2011 Inactive 12 hr buPROPion hydrochloride 90 mg / naltrexone hydrochloride 8 mg extended release oral tablet (20 sources) Opioid Antagonist, Aminoketone Start: 03-19-2018 End: 03-20-2018 Naltrexone-Bupropi on (Contrave) 8-90 mg tablet extended release Discontinued {tbl} PO 0 March 19, 2018 12:00am March 20, 2018 2:34pm Start: 11-22-2016 CONTRAVE 8-90 MG [id number] One tab every 12 hrs NALTREXONE-BUPROPION HCL [id number] Ilene Elam Start: 11-22-2016 CONTRAVE 8-90 MG [id number] One tab every 12 hrs NALTREXONE-BUPROPION HCL [id number] Ilene Elam celecoxib 200 mg oral capsule (20 sources) Nonsteroidal Anti-inflammatory Drug Start: 07-21-2015 End: 03-11-2024 take 1 capsule by mouth once daily Celecoxib 200 MG capsule Discontinued 200 mg PO DAILY May 30, 2020 12:00am March 11, 2024 3:08pm take 1 tablet by mouth once derrek y CELEBREX 400 MG CAPS One tablet by mouth daily CELECOXIB [id number] Yandel Hughes Comment on above: approved for [...] on above: before meals and at bedtime ciprofloxacin 500 mg oral tablet (20 sources) Quinolone Antimicrobial Start: 021 End: 03-07-2 022 take 1 tablet by mouth twice daily Ciprofloxacin Hcl 500 MG tablet Discontinued 500 mg PO TWICE A DAY 14 March 18, 2021 12:00am December 10, 2021 9:29am dicyclomine hydrochloride 10 mg oral capsule (20 sources) Anticholinergic Start: End: take 2 capsules by mouth three times daily before mealtime Dicyclomine 10 MG capsule Discontinued 20 mg PO THREE TIMES DAILY BEFORE MEALS 20 March 18, 2021 12:00am December 10, 2021 9:29am Start: 03-18-2021 End: 12-10-2021 take 20 mg by mouth three times daily before mealtime Dicyclomine Discontinued 20 MG PO THREE TIMES DAILY BEFORE MEALS March 18, 2021 12:00am December 10, 2021 9:29am Start: 11-22-2016 End: 12-31-2017 take 1 tablet by mouth once daily Dicyclomine 20 MG tablet Discontinued 20 mg PO DAILY March 04, 2017 12:00am December 31, 2017 12:08pm Start: 10-23-2011 End: 10-23-2011 take 1 tablet by mouth four times daily as needed DICYCLOMINE HCL, 20MG (Oral Tablet) 1 Tablet qid prn for 0 days Quantity: 60 {Tablet} Refills: 0 Ordered: 23-Oct-2011 Anjali Mendez Start : 23-Oct-2011 End : 23-Oct-2011 Discontinued take 1 tablet by beto th twice daily DICYCLOMINE HCL 20 MG TABS One tablet by mouth twice daily DICYCLOMINE HCL [id number] Yandel Hughes estradiol 0.1 mg/ml vaginal cream (1 source) Estrogen End: 10-31-2015 ESTRACE, 0.1MG/GM (Vaginal Cream) pea size amount 3 times weekly (0.1 MG/GM) End : 31-Oct-2015 Discontinued ezetimibe 10 mg oral tablet (20 sources) Dietary Cholesterol Absorption Inhibitor Start: 09-05-2022 End: 08-18-2024 take 1 tablet by mouth once daily Ezetimibe (Zetia) 10 mg tablet Discontinued 10 mg PO DAILY 90 March 29, 2024 4:41pm August 18, 2024 11:23am Hyperlipidemia Hyperlipidemia, unspecified ezetimibe 10 mg / simvastatin 40 mg oral tablet (1 source) HMG-CoA Reductase Inhibitor, Dietary Cholesterol Absorption Inhibitor Start: 03-16-2012 End: 03-16-2012 take 1 tablet by mouth once daily VYTORIN, 10-40MG (Oral Tablet) 1 (one) Tablet qd for 90 days Quantity: 90 {Tablet} Refills: 3 Ordered: 16-Mar-2012 Fast DO, Analilia A Fast DO, Analilia A Start : 16-Mar-2012 End : 16-Mar-2012 Discontinued fluconazole 150 mg oral tablet (20 sources) Azole Antifungal Start: 03-30-2025 End: 03-30-2025 Diflucan 150 mg oral tablet Dose : 150 mg = 1 tab(s), Oral, qDay, x1, may repeat in 2-3 days if symptoms persist., # 2 tab(s), 0 Refill(s), Pharmacy: [facility], Bilateral breast cancer, 154.9, cm, 03/22/25 21:28:00 EDT, Height, 87, kg, 03/22/25 21:28:00 EDT, Dosing Weight Start Date: 03/30/25 Stop Date: 03/30/25 Status: Ordered Quantity: 2.0 Unit: tab(s) Repeat number: 1 Indications: Malignant neoplasm of unspecified site of right female breast; Start: 03-18-2021 End: 12-10-2021 Fluconazole (Diflucan) 150 m g tablet Discontinued 150 mg PO Every 3 Days 2 0 March 18, 2021 12:00am December 10, 2021 9:29am fluticasone propionate 0.05 mg/actuat metered dose nasal spray (2 sources) Corticosteroid Start: 11-18-2011 take 1 spray(s) nasal route once daily as needed FLONASE, 50MCG/ACT (Nasal Suspension) 1 spray each nostril Suspension qd, prn for 90 days Quantity: 90 {Suspension} Refills: 3 Ordered: 18-Nov-2011 Anjali Mendez Start : 18-Nov-2011 Active take 1 spray(s) nasal route once daily Flonase Allergy Relief 50 mcg/actuation nasal spray,suspension 1 spray in both nostrils once a day active Mabel Cruz RN [facility] furosemide 20 mg oral tablet (1 source) Loop Diuretic Start: 01-16-2010 End: 07-22-2011 take 1 tablet by mouth once daily FUROSEMIDE, 20MG (Oral Tablet) 1 (one) Tablet qd for 0 days Quantity: 10 {Tablet} Refills: 0 Ordered: 22-Jul-2011 Reshma Kidd RN Start : 16-Jan-2010 End : 22-Jul-2011 Inactive 12 hr hyoscyamine sulfate 0.375 mg extended release oral tablet (20 sources) Start: 03-04-2017 End: 12-31-2017 take 1 tablet by mouth every twelve hours Hyoscyamine Sulfate 0.375 MG tablet Discontinued 0.375 mg PO EVERY 12 HOURS March 04, 2017 12:00am December 31, 2017 12:08pm Start: 11-22-2016 NULEV TBDP as needed HYOSCYAMINE SULFATE TBDP [id number] Ilene L Papa Start: 11-22-2016 NULEV TBDP as needed HYOSCYAMINE SULFATE TBDP [id number] Ilene Elam Start: 10-23-2011 HYOMAX-SL, 0.1 25MG (Sublingual Tablet Sublingual) 1 acosta Tab Sublingual tid, prn for 0 days Quantity: 270 {Tab_Sublingual} Refills: 3 Ordered: 23-Oct-2011 Augusto Zurita LPNsie Start : 23-Oct-2011 Active Start: 05-10-2009 End: [...] 22-Jul-2011 Discontinued Comments: This order discontinued per [facility]. Comment on above: This order discontin ued per [facility]. levocetirizine dihydrochloride 5 mg oral tablet (1 source) Histamine-1 Receptor Antagonist Start: 07-27-20 End: 07-27-20 take 1 tablet by mouth once daily as needed XYZAL, 5MG (Oral Tablet) 1 Tablet qd, prn for 0 days Quantity: 90 {Tablet} Refills: 3 Ordered: 27-Jul-2013 Fast DO, Analilia A Fast DO, Analilia A Start : 27-Jul-2013 End : 27-Jul-2013 Discontinued 24 hr metFORMIN hydrochloride 500 mg extended release oral tablet (20 sources) Biguanide Start: 11-27-19 End: 01-28-20 take 1 tablet by mouth twice daily Metformin 500 mg tablet extended release 24 hr Discontinued 500 mg PO TWICE A DAY 180 November 27, 2022 1:00am January 27, 2023 9:24am Diabetes mellitus Type 2 diabetes mellitus without complications Start: 09-09-2022 End: 11-27-2022 take 1 tablet by mouth twice daily Metformin 500 mg tablet extended release 24hr Discontinued 1000 mg PO TWICE A DAY 360 September 09, 2022 1:00am November 27, 2022 1:38pm Diabetes mellitus Type 2 diabetes mellitus without complications Start: 09-09-2022 End: 11-27-2022 take 1000 mg by mouth twice daily Metformin Discontinued 1000 MG PO TWICE A DAY 360 September 09, 2022 1:00am November 27, 2022 1:38pm Start: 09-05-2022 End: 09-09-2022 take 1 tablet by mouth twice daily Metformin 1,000 mg tablet,ER [email or web address] 24 hr Discontinued 1000 mg PO TWICE A DAY 180 September 05, 2022 1:00am September 09, 2022 9:47am Diabetes mellitus Type 2 diabetes mellitus without complications Start: 09-04-2022 End: 09-05-2022 take 1 tablet by mouth twice daily Metformin 1,000 mg tablet extended release 24hr Discontinued 1000 mg PO TWICE A DAY 180 September 04, 2022 1:00am September 05, 2022 12:22pm Diabetes mellitus Type 2 diabetes mellitus without complications metroNIDAZOLE 500 mg oral tablet (20 sources) Nitroimidazole Antimicrobial Start: 03-18-2021 End: 12-10-2021 take 1 tablet by mouth every eight hours Metronidazole 500 MG tablet Discontinued 500 mg PO Q8H March 18, 2021 12:00am December 10, 2021 9:29am naproxen 500 mg oral tablet (1 source) Nonsteroidal Anti-inflammatory Drug Start: 01-01-2013 End: 01-15-2013 take 1 tablet by mouth twice daily NAPROSYN, 500MG (Oral Tablet) 1 Tablet bid for 14 days Quantity: 30 {Tablet} Refills: 0 Ordered: 01-Jan-2013 Reshma Kidd RN Start : 01-Jan-2013 End : 15-Jan-2013 Inactive nitrofurantoin, macrocrystals 25 mg / nitrofurantoin, monohydrate 75 mg oral capsule (17 sources) Nitrofuran Antibacterial Start: 09-05-2022 End: 09-12-2022 take 1 capsule by mouth every twelve hours at mealtime Nitrofurantoin Monohyd/M-Cryst (Macrobid) 100 mg capsule Discontinued 100 mg PO Q12H 14 7 0 September 05, 2022 1:00am September 11, 2022 1:00am September 12, 2022 1:03am must administer with a meal/food norethindrone acetate 5 mg oral tablet (1 source) End: 07-22-2011 NORETHINDRONE ACETATE, 5MG (Oral Tablet) for 0 days Refills: 0 Ordered: 22-Jul-2011 Reshma Kidd RN End : 22-Jul-2011 Inactive ondansetron 4 mg disintegrating oral tablet (20 sources) Serotonin-3 Receptor Antagonist Start: 03-18-2021 End: 12-10-2021 take 1 tablet by mouth every eight hours as needed for nausea Ondansetron 4 MG tablet Discontinued 4 mg PO EVERY 8 HOURS NEEDED as needed for Nausea March 18, 2021 12:00am December 10, 2021 9:29am phentermine hydrochloride 37.5 mg oral tablet (1 source) Sympathomimetic Amine Anorectic Start: 11-24-2013 End: 02-06-2015 take 1 tablet by mouth once daily ADIPEX-P, 37.5MG (Oral Tablet) 1 Tablet qd for 0 days Quantity: 30 {Tablet} Refills: 0 Ordered: 06-Feb-2015 Anjali Mendez Start : 24-Nov-2013 End : 06-Feb-2015 Discontinued Comments: BMI - 36.5 thirty Comment on above: BMI - 36.5 thirty potassium chloride 10 meq extended release oral capsule (1 source) Start: 01-16-2010 End: 07-22-2011 take 2 capsules by mouth once daily POTASSIUM CHLORIDE CR, 10MEQ (Oral Capsule Extended Release) 2 (two) Capsule ER qd for 0 days Quantity: 20 {Capsule_ER} Refills: 0 Ordered: 22-Jul-2011 Reshma Kidd RN Start : 16-Jan-2010 End : 22-Jul-2011 Inactive predniSONE 10 mg oral tablet (20 sources) Start: 03-20-2018 End: 04-03-2018 Prednisone 10 mg tablet Discontinued 10 mg PO daily 30 0 March 20, 2018 12:00am April 03, 2018 2:50pm take 4 tabs for three days, then 3 tabs for three days, then 2 tabs for three days, then 1 tab for 3 days rosuvastatin calcium 40 mg oral tablet (20 sources) HMG-CoA Reductase Inhibitor Start: 02-16-2016 End: 12-31-2017 take 1 tablet by mouth once daily Rosuvastatin 40 MG tablet Discontinued 40 mg PO DAILY March 04, 2017 12:00am December 31, 2017 12:08pm take 1 tablet by mouth once derrek y CRESTOR TABS One tablet by mouth daily ROSUVASTATIN CALCIUM TABS [id number] Yandel Hughes simvastatin 80 mg oral tablet (1 source) HMG-CoA Reductase Inhibitor Start: 11-05-2011 End: 11-05-2011 take 1 tablet by mouth once daily SIMVASTATIN, 80MG (Oral Tablet) 1 (one) Tablet qd for 90 days Quantity: 90 {Tablet} Refills: 3 Ordered: 05-Nov-2011 Analilia Strauss DO, DO, Debra A Start : 05-Nov-2011 End : 05-Nov-2011 Discontinued tamoxifen 20 mg oral tablet (20 sources) Estrogen Agonist/Antagonis t Start: 06-21-2019 End: 05-31-2022 take 1 tablet by mouth once daily Tamoxifen 20 mg tablet Discontinued 20 mg PO DAILY 90 October 29, 2021 9:19am May 31, 2022 10:42am Start: 10-07-2018 End: 05-08-2019 take 1 tablet by mouth once daily Tamoxifen 20 MG tablet Discontinued 20 mg PO DAILY 90 90 January 06, 2019 12:33pm May 03, 2019 12:00am May 08, 2019 12:08am 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 receptor positive tumor status Personal history of in-situ neoplasm of breast Estrogen receptor positive status [ER+] Start: 05-06-2017 End: 10-07-2018 take 1 tablet by mouth once daily Tamoxifen 10 MG tablet Discontinued 20 mg PO DAILY 90 90 3 March 30, 2018 8:41am October 07, 2018 9:12am Start: 05-06-2017 End: 10-07-2018 take 20 mg by mouth once daily Tamoxifen Discontinued 20 MG PO DAILY 90 90 March 30, 2018 8:41am October 07, 2018 9:12am terbinafine 250 mg oral tablet (1 source) Allylamine Antifungal Start: 07-22-2011 End: 11-05-2011 take 1 tablet by mouth once daily LAMISIL, 250MG (Oral Tablet) 1 Tablet qd for 0 days Quantity: 90 {Tablet} Refills: 0 Ordered: 05-Nov-2011 Anjali Mendez Start : 22-Jul-2011 End : 05-Nov-2011 Inactive Comments: use daily for 12 weeks-- tell pt changed mind no pulse dosing Comment on above: use daily for 12 wee ks-- tell pt changed mind no pulse dosing Tirzepatide (6 sources) Start: 10-08-2023 End: 11-12-2023 Tirzepatide (Mounjaro) 2.5 mg/0.5 mL pen injector Discontinued 2.5 mg SC EVERY WEEK 2 02 11October 08, 2023 1:00am November 12, 2023 11:03am Diabetes mellitus Type 2 diabetes mellitus with hyperglycemia Start: 12-03-2022 End: 03-27-2023 Tirzepatide (Mounjaro) 2.5 m g/0.5 mL pen injector Discontinued mg SC December 03, 2022 1:00am March 27, 2023 10:42am Start: 09-04-2022 End: 02-10-2023 Tirzepatide (Mounjaro) 2.5 m g/0.5 mL pen injector Discontinued 2.5 mg SC EVERY WEEK 2 31 12September 04, 2022 1:00am February 10, 2023 12:47pm Tirzepatide (4 sources) Start: 11-12-2023 End: 05-13-2024 Tirzepatide (Mounjaro) 5 mg/ 0.5 mL pen injector Discontinued 5 mg SC EVERY WEEK 2 November 12, 2023 1:00am May 13, 2024 9:49am Diabetes mellitus Type 2 diabetes mellitus with hyperglycemia Start: 02-10-2023 End: 10-08-2023 Tirzepatide (Mounjaro) 5 mg/ 0.5 mL pen injector Discontinued 5 mg SC EVERY WEEK 2 February 10, 2023 12:00am October 08, 2023 5:35pm Diabetes mellitus Type 2 diabetes mellitus without complications Tirzepatide (Mounjaro) 2.5 mg/0.5 mL pen injector (20 sources) Start: 10-08-2023 End: 11-12-2023 Tirzepatide (Mounjaro) 2.5 mg/0.5 mL pen injector Discontinued 2.5 mg SC EVERY WEEK October 08, 2023 1:00am November 12, 2023 11:03am Diabetes mellitus Type 2 diabetes mellitus with hyperglycemia Start: 10-08-2023 End: 11-12-2023 Tirzepatide (Mounjaro) 2.5 m g/0.5 mL pen injector Discontinued 2.5 mg SC EVERY WEEK 2 October 08, 2023 1:00am November 12, 2023 11:03am Start: 10-08-2023 End: 11-12-2023 Tirzepatide (Mounjaro) 2.5 m g/0.5 mL pen injector Discontinued 2.5 MG SC EVERY WEEK 2 October 08, 2023 1:00am November 12, 2023 11:03am Start: 12-03-2022 End: 03-27-2023 Tirzepatide (Mounjaro) 2.5 m g/0.5 mL pen injector Discontinued mg SC December 03, 2022 1:00am March 27, 2023 10:42am Start: 12-03-2022 End: 03-27-2023 Tirzepatide (Mounjaro) 2.5 m g/0.5 mL pen injector Discontinued MG SC December 03, 2022 12:00am March 27, 2023 9:42am Start: 12-03-2022 End: 03-27-2023 Tirzepatide (Mounjaro) 2.5 m g/0.5 mL pen injector Discontinued MG SC December 03, 2022 1:00am March 27, 2023 10:42am Start: 12-03-2022 Tirzepatide (M ounjaro) 2.5 mg/0.5 mL pen injector Active MG SC December 03, 2022 1:00am Start: 09-04-2022 End: 02-10-2023 Tirzepatide (Mounjaro) 2.5 m g/0.5 mL pen injector Discontinued 2.5 mg SC EVERY WEEK 2 31 12September 04, 2022 1:00am February 10, 2023 12:47pm Start: 09-04-2022 End: 02-10-2023 Tirzepatide (Mounjaro) 2.5 m g/0.5 mL pen injector Discontinued 2.5 mg SC EVERY WEEK 2 September 04, 2022 1:00am February 10, 2023 12:47pm Start: 09-04-2022 End: 02-10-2023 Tirzepatide (Mounjaro) 2.5 m g/0.5 mL pen injector Discontinued 2.5 MG SC EVERY WEEK 2 September 04, 2022 12:00am February 10, 2023 11:47am Start: 09-04-2022 End: 02-10-2023 Tirzepatide (Mounjaro) 2.5 m g/0.5 mL pen injector Discontinued 2.5 MG SC EVERY WEEK 2 September 04, 2022 1:00am February 10, 2023 12:47pm Start: 09-04-2022 Tirzepatide (M ounjaro) 2.5 mg/0.5 mL pen injector Active 2.5 MG SC EVERY WEEK 2 September 04, 2022 1:00am Start: 09-04-2022 Tirzepatide (M ounjaro) 2.5 mg/0.5 mL pen injector Active 2.5 MG SC EVERY WEEK 2 September 04, 2022 12:00am Tirzepatide (Mounjaro) 5 mg/ 0.5 mL pen injector (20 sources) Start: 11-12-2023 End: 05-13-2024 Tirzepatide (Mounjaro) 5 mg/ 0.5 mL pen injector Discontinued 5 mg SC EVERY WEEK 2 November 12, 2023 1:00am May 13, 2024 9:49am Diabetes mellitus Type 2 diabetes mellitus with hyperglycemia Start: 11-12-2023 End: 05-13-2024 Tirzepatide (Mounjaro) 5 mg/ 0.5 mL pen injector Discontinued 5 mg SC EVERY WEEK 2 November 12, 2023 1:00am May 13, 2024 9:49am Start: 11-12-2023 Tirzepatide (M ounjaro) 5 mg/0.5 mL pen injector Active 5 MG SC EVERY WEEK 2 November 12, 2023 1:00am Start: 02-10-2023 End: 10-08-2023 Tirzepatide (Mounjaro) 5 mg/ 0.5 mL pen injector Discontinued 5 mg SC EVERY WEEK 2 February 10, 2023 12:00am October 08, 2023 5:35pm Diabetes mellitus Type 2 diabetes mellitus without complications Start: 02-10-2023 End: 10-08-2023 Tirzepatide (Mounjaro) 5 mg/ 0.5 mL pen injector Discontinued 5 mg SC EVERY WEEK February 10, 2023 12:00am October 08, 2023 5:35pm Start: 02-10-2023 End: 10-08-2023 Tirzepatide (Mounjaro) 5 mg/ 0.5 mL pen injector Discontinued 5 MG SC EVERY WEEK February 10, 2023 12:00am October 08, 2023 5:35pm Start: 02-10-2023 Tirzepatide (M ounjaro) 5 mg/0.5 mL pen injector Active 5 MG SC EVERY WEEK 2 February 09, 2023 11:00pm Start: 02-10-2023 Tirzepatide (M ounjaro) 5 mg/0.5 mL pen injector Active 5 MG SC EVERY WEEK February 10, 2023 12:00am zolpidem tartrate 6.25 mg extended release oral tablet (1 source) gamma-Aminobutyric Acid-ergic Agonist Start: 02-22-2009 End: 07-22-2011 take 1 tablet by mouth once daily AMBIEN CR, 6.25MG (Oral Tablet Extended Release) 1 (one) Tablet ER qd for 0 days Quantity: 90 {Tablet_ER} Refills: 0 Ordered: 22-Jul-2011 Reshma Kidd RN Start : 22-Feb-2009 End : 22-Jul-2011 Inactive Problems Active Problems Problem Classification Problem Date Documented Da te Episodic/Chronic Abdominal hernia (5 sources) Spigelian hernia 02-09-2025 Episodic Abdominal pain (4 sources) Flank pain 10-31-2015 Episodic Anxiety disorders (1 source) Anxiety disorder, unspecified; Translations: [Anxiety disorder, unspecified] Onset: 03-22-2025 Chronic Cancer of breast (20 sources) Malignant tumor of breast ; Translations: [Malignant neoplasm of unspecified site of unspecified female breast] Onset: 01-19-2025 Chronic Comment on above: Finished Tamoxifen f or chemoprevention in February 2023. 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 BRCA 1 & 2 negative.Comes for follow upCT 01/27/2025 reviewed, no evidence of metastatic disease.Bone scan on 02/07/2025 reviewed, no evidence of metastatic disease.Has decided to do breast surgery in [place]. Right breast, discus sed surgical management, Lumpectomy vs mastectomy. Finished Tamoxifen f or chemoprevention in February 2023.Now with Invasive breast cancer in the L breast. 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 BRCA 1 & 2 negative.CT 01/27/2025 reviewed, no evidence of metastatic disease.Bone scan on 02/07/2025 reviewed, no evidence of metastatic disease.Had breast surgery in [place]. 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 BRCA 1 & 2 negative.CT 01/27/2025 reviewed, no evidence of metastatic disease.Bone scan on 02/07/2025 reviewed, no evidence of metastatic disease.Had breast surgery in [place]. Pathology showed L Invasive ductal ca, grade 1-2, tumor size 1.8cm-pT1c pN0. Prognostic stage IA. Oncotype DX recurrence score 19. Less than benefit from chemotherapy. Osteopenia.Discussed adjuvant hormonal therapy with Anatrozole, osteoporosis prophlyaxis. Finished Tamoxifen f or chemoprevention in February 2023.Now with Invasive breast cancer in the L breast. S/P mastectomy + mammoplasty. S/P R mastectomy Cancer of breast (20 sources) History of malignant neoplasm of breast; Translations: [History of ductal carcinoma in situ of breast] Onset: 06-18-2017 06-18-2017 Episodic Comment on above: Has been diagnosed w ith L breast cancer. Deficiency and other anemia (3 sources) Anemia; Translations: [Anemia] Resolved: 07-05-2009 08-22-2015 Episodic Diabetes mellitus with complications (1 source) Type 2 diabetes mellitus with hyperglycemia; Translations: [Type 2 diabetes mellitus with hyperglycemia] Onset: 03-10-2025 Chronic Diabetes mellitus without complication (20 sources) Diabetes mellitus; Translations: [Type 2 diabetes mellitus without complications] Chronic Diseases of white blood cells (2 sources) Leukocytosis; Translations: [Elevated white blood cell count, unspecified] Onset: 03-22-2025 Chronic Disorders of lipid metabolism (20 sources) Hyperlipidemia; Translations: [Hyperlipidemia, unspecified] Onset: 03-22-2025 Chronic Comment on above: diet and ex Diverticulosis and diverticulitis (20 sources) Diverticulitis; Translations: [Diverticulitis of intestine, part unspecified, without perforation or abscess without bleeding] 11-10-2018 Chronic Genitourinary symptoms and ill-defined conditions (11 sources) Incontinence; Translations: [Mixed incontinence] Onset: 05-13-2025 05-04-2025 Chronic Genitourinary symptoms and ill-defined conditions (20 sources) Dysuria; Translations: [Dysuria] Episodic Hemorrhoids (20 sources) Bleeding external hemorrhoids; Translations: [Residual hemorrhoidal skin tags] 03-18-2021 Episodic Immunizations and screening for infectious disease (5 sources) Requires varicella vaccination; Translations: [Need for zoster vaccination] Resolved: 11-05-2011 10-31-2015 Episodic Menopausal disorders (14 sources) Postmenopausal bleeding; Translations: [Atrophic vaginitis] Onset: 02-06-2024 Chronic Mood disorders (12 sources) Depressive disorder; Translations: [Depressive disorder] 10-31-2015 Chronic Comment on above: chronic stable-lia nue present regimen Mood disorders (1 source) Mood disorders; Translations: [Depression, unspecified] Onset: 03-22-2025 Mycoses (20 sources) Tinea corporis; Translations: [Tinea corporis] 11-10-2018 Episodic Noninfectious gastroenteritis (20 sources) Colitis; Translations: [Noninfective gastroenteritis and colitis, unspecified] 03-18-2021 Episodic Nonmalignant breast conditions (8 sources) Fibrocystic disease of breast; Translations: [Diffuse cystic mastopathy of unspecified breast] 05-28-2012 Chronic Nutritional deficiencies (20 sources) Vitamin D deficiency; Translations: [Vitamin D deficiency, unspecified] Onset: 03-10-2025 Chronic Osteoarthritis (20 sources) Arthritis; Translations: [Unspecified osteoarthritis, unspecified site] 11-10-2018 Chronic Other and unspecified benign neoplasm (3 sources) Polyp of colon; Translations: [Colon polyp] 10-31-2015 Episodic Other bone disease and musculoskeletal deformities (4 sources) Postmenopausal osteopenia; Translations: [Other specified disorders of bone density and structure, unspecified site] 06-23-2025 Episodic Other bone disease and musculoskeletal deformities (1 source) Other specified disorders of bone density and structure, unspecified site; Translations: [Other specified disorders of bone density and structure, unspecified site] Onset: 06-23-2025 Episodic Other connective tissue disease (6 sources) Swelling of limb; Translations: [Swelling of limb] 10-31-2015 Episodic Other diseases of bladder and urethra (14 sources) Lesion of bladder; Translations: [Bladder disorder, unspecified] 05-01-2023 Chronic Other diseases of bladder and urethra (3 sources) Bladder disorder, unspecified; Translations: [Unspecified disorder of bladder] 05-01-2023 Chronic Other diseases of bladder and urethra (10 sources) Overactive bladder; Translations: [Overactive bladder] 05-04-2025 Chronic Other diseases of bladder and urethra (2 sources) Overactive bladder; Translations: [Overactive bladder] Onset: 03-22-2025 Chronic Other diseases of veins and lymphatics (2 sources) Venous stasis 10-31-2015 Episodic Other female genital disorders (20 sources) Vaginal bleeding; Translations: [Abnormal uterine and vaginal bleeding, unspecified] 05-14-2018 Chronic Other female genital disorders (6 sources) Abnormal uterine and vaginal bleeding, unspecified; Translations: [Other specified noninflammatory disorders of vagina] Chronic Other female genital disorders (5 sources) Disorder of uterus 02-09-2025 Episodic Other gastrointestinal disorders (20 sources) Irritable bowel syndrome; Translations: [Irritable bowel syndrome without diarrhea] 11-10-2018 Chronic Comment on above: worsening diarrhea w ith stress similar to previous IBS Other gastrointestinal disorders (1 source) Irritable bowel syndrome without diarrhea; Translations: [Irritable bowel syndrome, unspecified] Onset: 03-22-2025 Chronic Other hematologic conditions (3 sources) Erythrocytosis; Translations: [Polycythemia] 10-31-2015 Episodic Other liver diseases (5 sources) Liver cyst 02-09-2025 Chronic Other lower respiratory disease (20 sources) Dyspnea; Translations: [Shortness of breath] 11-10-2018 Episodic Other lower respiratory disease (20 sources) Cough; Translations: [Cough] 11-10-2018 Episodic Other lower respiratory disease (20 sources) Wheezing; Translations: [Wheezing] 11-10-2018 Episodic Other non-traumatic joint disorders (20 sources) Swollen ankle region; Translations: [Effusion, unspecified ankle] 06-01-2019 Episodic Other non-traumatic joint disorders (6 sources) Effusion, unspecified ankle; Translations: [Effusion of joint, ankle and foot] Episodic Other non-traumatic joint disorders (5 sources) Shoulder pain; Translations: [Shoulder pain] 10-31-2015 Episodic Other nutritional; endocrine; and metabolic disorders (20 sources) Obesity; Translations: [Obesity, unspecified] Onset: 03-23-2025 11-10-2018 Chronic Comment on above: on adepex x [id number] e wt loss, old habits Other nutritional; endocrine; and metabolic disorders (10 sources) Obesity, unspecified; Translations: [Obesity, unspecified] Onset: 03-22-2025 Chronic Other nutritional; endocrine; and metabolic disorders (3 sources) Hypercalcemia; Translations: [Hypercalcemia (275.42)] Chronic Other nutritional; endocrine; and metabolic disorders (1 source) Body mass index (BMI) 36.0-36.9, adult; Translations: [Body mass index [BMI] 36.0-36.9, adult] Onset: 03-22-2025 Chronic Other nutritional; endocrine; and metabolic disorders (3 sources) Weight gain; Translations: [Weight gain] 10-31-2015 Episodic Other upper respiratory disease (5 sources) Allergic rhinitis; Translations: [Allergic rhinitis] 10-31-2015 Chronic Comment on above: chronic stable-lia nue present regimen Other upper respiratory infections (20 sources) Bacterial sinusitis; Translations: [Chronic sinusitis, unspecified] 11-10-2018 Chronic Residual codes; unclassified (20 sources) Obstructive sleep apnea syndrome; Translations: [Obstructive sleep apnea (adult) (pediatric)] Onset: 03-23-2025 11-10-2018 Chronic Residual codes; unclassified (6 sources) Obstructive sleep apnea (adult) (pediatric); Translations: [Obstructive sleep apnea (adult)(pediatric)] Onset: 03-22-2025 Chronic Residual codes; unclassified (20 sources) History of operative procedure on shoulder; Translations: [Other specified postprocedural states] 11-10-2018 Episodic Residual codes; unclassified (15 sources) Postmenopausal state; Translations: [Asymptomatic menopausal state] 01-27-2023 Episodic Residual codes; unclassified (3 sources) Asymptomatic menopausal state; Translations: [Asymptomatic postmenopausal status (age-related) (natural)] Onset: 06-24-2025 01-27-2023 Episodic Residual codes; unclassified (2 sources) Exposure to [...] stable-lia nue present regimen Residual codes; unclassified (11 sources) Other specified postprocedural states; Translations: [History of lumpectomy] 04-24-2023 Episodic Comment on above: LEFT 2016 Residual codes; unclassified (2 sources) Personal history of other drug therapy; Translations: [Personal history of other drug therapy] Onset: 02-06-2024 Episodic Residual codes; unclassified (5 sources) Family history of breast cancer 02-08-2025 Episodic Residual codes; unclassified (1 source) Absence of breast; Translations: [Acquired absence of unspecified breast and nipple] Onset: 03-23-2025 Episodic Residual codes; unclassified (3 sources) Estrogen receptor positive status [ER+]; Translations: [Estrogen receptor positive status [ER+]] Onset: 03-22-2025 Episodic Spondylosis; intervertebral disc disorders; other back problems (20 sources) Low back pain; Translations: [Low Back Pain (Renamed from LBP (low back pain))] 10-31-2015 Episodic Comment on above: CT and bone scan crystal w no evidence of metastatic disease. Unclassified (9 sources) Obstructive sleep apnea of adult; Translations: [Obstructive sleep apnea, adult] Onset: 06-18-2017 06-18-2017 Chronic Comment on above: wearing cpap Unclassified (20 sources) Unclassified (17 sources) Ductal carcinoma in situ (DCIS) of breast; Translations: [D05.10 - Intraductal carcinoma in situ of unspecified breast] Unclassified (5 sources) C50.812 - Malignant neoplasm of overlapping sites of left female breast,D05.12 - Intraductal carcinoma in situ of left breast Unclassified (2 sources) Obesity, class 2; Translations: [Obesity, class 2] Onset: 03-22-2025 Unclassified (2 sources) Malignant neoplasm of overlapping sites of left female breast Unclassified (2 sources) Ductal carcinoma in situ (DCIS) of left breast Unclassified (2 sources) M85.80 - Other specified disorders of bone density and structure, unspecified site,Z78.0 - Asymptomatic menopausal state Unclassified (1 source) Progesterone receptor positive status; Translations: [Progesterone receptor positive status] Onset: 03-22-2025 Unclassified (1 source) Long-term (current) use of injectable non-insulin antidiabetic drugs; Translations: [Long-term (current) use of injectable non-insulin antidiabetic drugs] Onset: 03-22-2025 Past or Other Problems Problem Classification Problem Date Documented Date Episodic/Chronic Diabetes mellitus without complication (9 sources) Impaired fasting glycemia; Translations: [Impaired fasting glucose] Onset: 03-22-2025 10-31-2015 Episodic Nonmalignant breast conditions (20 sources) Breast lump; Translations: [Unspecified lump in unspecified breast] Onset: 02-07-2025 Episodic Other lower respiratory disease (6 sources) Lung mass; Translations: [Other nonspecific abnormal finding of lung field] Onset: 06-18-2017 06-18-2017 Episodic Other nutritional; endocrine; and metabolic disorders (1 source) Hypercalcemia; Translations: [Hypercalcemia] Resolved: 07-27-2013 07-27-2013 Chronic Other screening for suspected conditions (not mental disorders or infectious disease) (20 sources) Ultrasonography of breast abnormal; Translations: [Other abnormal and inconclusive findings on diagnostic imaging of breast] Onset: 02-07-2025 12-20-2024 Episodic Comment on above: The patient is a 69- year-old female with bilateral breast abnormalities. She was found to have infiltrating ductal carcinoma on the left. ER and CT are both positive. Her pathology just resulted. She has DCIS in the right breast. Again she has a history of left-sided DCIS treated with lumpectomy, sentinel lymph node biopsy and radiation therapy. This was performed back in 2017. Once this was discussed with the patient, she stated that she would like to proceed with bilateral mastectomies. We did discuss the option of reconstruction and it sounds as though she has some interest in doing so. As a result I have recommended that she meet with plastic surgery. Given her family history and personal history of bilateral DCIS and now invasive breast cancer even though the DCIS was previously treated and she has a family history of breast cancer, I have recommended that she consider BRCA testing. My plan is for her to meet with plastic surgery and then follow-up with me shortly thereafter to finalize a surgical plan. She is agreeable to this plan. Residual codes; unclassified (1 source) Acquired absence of unspecified breast and nipple; Translations: [Acquired absence of unspecified breast and nipple] Onset: 03-22-2025 Episodic Screening and history of mental health and substance abuse codes (1 source) Personal history of nicotine dependence; Translations: [Personal history of nicotine dependence] Onset: 03-22-2025 Episodic Unclassified (2 sources) coccydynia 10-31-2015 Unclassified (1 [...] Test Name Value Interpretation Reference Range Facility Sb 08-12-2025 /[facility] [address] [place] [address], [address] [place] [id number] OFFICE VISIT Date of Service: 08/12/25 MR#: [id number] Acct: [id number] Name: AMAYA GARCIA Rep #: [id number] : 1955 Provider: Dr. 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 Required: No Accompanied by: self Is patient in pain?: No Allergies No Known Allergies Allergy (Verified 08/12/25 11:59) Medications ???Medication ???Instructions ???Recorded ???Confirmed ???Type trazodone 150 mg tablet 150 mg PO QHS 01/10/17 08/12/25 Hi story escitalopram oxalate 10 mg tablet 10 mg PO DAILY 02/25/17 08/12/25 History rosuvastatin 40 mg tablet 40 mg PO DAILY 12/31/17 08/12/25 H istory valacyclovir 500 mg tablet 500 mg PO DAILY 05/30/20 08/12/25 History cyclobenzaprine 5 mg tablet 5 mg PO DAILY PRN muscle spasm 04/2608/12/25 History meloxicam 15 mg tablet 15 mg PO QDAY 03/11/24 08/12/25 Hi story ezetimibe 10 mg tablet (Zetia) 10 mg PO DAILY #90 tabs 08/18/24 1 10/12/24 Rx fesoterodine 4 mg tablet,extended 4 mg PO QDAY 03/10/25 08/12/25 Hi story release 24 hr methocarbamol 750 mg tablet 750 mg PO TID 05/16/25 08/12/25 Hi story Gemtesa 75 mg tablet (vibegron) 75 mg PO QDAY #90 tabs 05/17/25 Rx anastrozole 1 mg tablet 1 mg PO QDAY 2 months #60 tabs 08/12/25 Rx Have you fallen in the past year?: No Nurse's Note: Bladder scan PVR 2cc. PFSH Medical History Abnormal mammogram of right breast Abnormal ultrasound of breast Left breast mass Urinary tract infection Wears glasses Cancer Alcohol use Diabetes Rheumatoid arthritis Bladder disease Cirrhosis Easy bruising History of IBS Former smoker BiPAP (biphasic positive airway pressure) dependence History of edema History of stress test IBS (irritable bowel syndrome) DOROTEO (obstructive sleep apnea) Obesity Vitamin D deficiency Breast cancer SOB (shortness of breath) Hyperlipidemia Diverticulitis Arthritis Surgical History H/O mastectomy H/O cystoscopy H/O wrist surgery H/O breast surgery History of shoulder surgery History of tonsillectomy and adenoidectomy History of tubal ligation History of lumpectomy History of section Family History Mother CVA (cerebral vascular accident) Arthritis Heart disease Father Hypertension Heart disease Diabetes Aunt Breast cancer Grandmother Breast cancer Other Angina at rest Asthma Coagulation disorder High cholesterol Myocardial infarction Social History Smoking Status: Former smoker Tobacco: How many years used: 20 how long ago did patient quit smokin, 1ppd second hand exposure: Yes alcohol intake: current alcohol intake frequency: a few times a month Alcohol type: beer details: occasionally substance use type: does not use what type of physical activity do you participate in: none frequency: other duration: other do you feel safe at home: Yes HPI HPI Urology Chief Complaint: 3 month gemtesa Details: AMAYA GARCIA, is a 69 F. She is here for medication follow up. She has been taking Gemtesa 75mg daily. She is not having side effects from the medication. She is doing well. Happy with the results. She would like to continue with this medication. She has not had any urinary tract infections since the last visit. She has not had any blood in the urine since the last visit. She is still working on all of the breast cancer stuff. She is having breast reconstruction on September 09. ROS Const Constitutional: No chills, fatigue, fever(s), headache(s), night sweats, weakness, weight change, abnormal sleep pattern or change in appetite Eyes Eyes: No change in vision ENT ENT: No headache(s) or dry mouth Resp Respiratory: No cough, chest congestion, shortness of breath or wheezing Cardio Cardiology: Positive for other (No chest pain.); No shortness of breath, irregular heart rhythm or lightheadedness Gastro GI: Positive for other (No nausea.); No abdominal pain, change in bowel habits, constipation, diarrhea or vomiting Musc Musculoskeletal: No abnormal gait Skin Skin: No yellowing of the eye, lesions, itchy eyes, rash or skin ulcer Neuro Neurology: No abnormal gait, confusion, dizziness, weakness, headache(s) or memory loss Psych Psychiatric: No abnor (more content not included)... Normal [facility] Basic Metabolic Profile (BMP )on 07-27-2025 BUN/CRE 26.3 RATIO High 07-25 [facility] Comment on above: Performed By: #### L 500.2500 ####[facility] [address] [place] [address] Calcium [Mass/Vol] 9.8 mg/dL Normal 7.6-11.0 [facility] Comment on above: Performed By: #### L 500.2500 ####[facility] [address] [place], [address] Chloride [Moles/Vol] 103 mmol/L Normal 98-108 [facility] Comment on above: Performed By: #### L 500.2500 ####[facility] [address] [place], [address] CO2 [Moles/Vol] 23.9 mmol/L Normal 21.0-32.0 [facility] Comment on above: Performed By: #### L 500.2500 ####[facility] [address] [place], [address] Creatinine [Mass/Vol] 0.75 mg/dL Normal 0.70-1.20 [facility] Comment on above: Performed By: #### L 500.2500 ####[facility] [address] [place], [address] ECRCL 69.79 ml/min Normal 50-250 [facility] Comment on above: Performed By: #### L 500.2500 ####[facility] [address] [place], [address] GAP 12 Normal 5-15 [facility] Comment on above: Performed By: #### L 500.2500 ####[facility] [address] [place], [address] GFR/1.73 sq M.predicted among non-blacks MDRD (S/P/Bld) [Vol rate/Area] 87 mL/min/{1.73_m2} Normal >60 [facility] Comment on above: Result Comment: mL/m in/1.73m2 CKD-EPI Creatinine Equation (2020) Performed By: #### L 500.2500 ####[facility] [address] [place], [address] Glucose [Mass/Vol] 92 mg/dL Normal 70-99 [facility] Comment on above: Performed By: #### L 500.2500 ####[facility] [address] [place], [address] Potassium [Moles/Vol] 4.5 mmol/L Normal 3.3-5.1 [facility] Comment on above: Result Comment: Hemo lysis present, Results??could be affected. ?? Performed By: #### L 500.2500 ####[facility] [address] [place], [address] Sodium [Moles/Vol] 138 mmol/L Normal 133-145 [facility] Comment on above: Performed By: #### L 500.2500 ####[facility] [address] [place], [address] Urea nitrogen [Mass/Vol] 20 mg/dL High 4-19 [facility] Comment on above: Performed By: #### L 500.2500 ####[facility] [address] [place], [address] Supplemental Reporton 2024 Supplemental Report . Pathology Reports Accession: Collected Date/Time: Received Date/Time: Pathologist: [id number] 03/22/2025 16:38 EDT 03/23/2025 07:13 EDT CLAUDIO MONSALVE MD Supplemental Report SUPPLEMENTAL: [facility] [address] [place] [address] [place] [address] Oncotype DX Breast Recurrence Score Report Recurrence score result: 19 Distant recurrence risk at 9 years: 6% Group average absolute chemotherapy benefit: <1% Quantitative Single-Gene Scores: ER: 9.[address]: 6.1 CT Positive HER2: 9.0 HER2 Negative Complete report scanned into chart. Verified by Diagnostic interpretation performed at [facility] CLAUDIO MONSALVE Sign out Date: 07/04/2025 13:02 Performing Lab: [address] Pathology Dept Supplemental Report SUPPLEMENTAL: [facility] [address] [place] [address] HER2 FISH Analysis Clinical summary and Indication: Invasive ductal carcinoma. Body Site: Breast, Left Comment: FINAL HER2 INTERPRETATION: In conjunction with the equivocal (2+) HER2 Immunostain result provided, the final HER2 interpretation of this specimen is NEGATIVE (in accordance with ASCO/CAP guidelines). HER2 FISH Results: 1.3 Interpretation: Equivocal-Group 4 Number of tumor cells counted: 20 + 20 Number of observers: 2 Average HER2 Copy number: 4.08 Average CEP17 copy number: 3.13 Ratio of average HER2/CEP17: 1.3 Sample adequate for analysis: Yes Complete report scanned into chart. Pathology Reports Accession: Collected Date/Time: Received Date/Time: Pathologist: [id number] 03/22/2025 16:38 EDT 03/23/2025 07:13 EDCLAUDIO PALOMARES MD Verified by Diagnostic interpretation performed at [facility] CLAUDIO MONSALVE Sign out Date: 04/15/2025 11:19 Performing Lab: [place] [address] [place] Pathology Dept Supplemental Report SUPPLEMENTAL: Part E DCIS with microinvasion microinvasion is greater than 5 mm from the superior aspect, DCIS approaches to within 3 mm of the superior aspect Verified by Diagnostic interpretation performed at [facility] CLAUDIO MONSALVE Sign out Date: 03/25/2025 16:32 Performing Lab: [facility], [facility] [address] [place] [address] Pathology Dept Final Surgical Pathology Report DIAGNOSIS: A. RIGHT BREAST SENTINEL LYMPH NODE #1: - NEGATIVE B. RIGHT BREAST SENTINEL LYMPH NODE #2: - NEGATIVE C. LEFT BREAST SENTINEL LYMPH NODE #1: - NEGATIVE D. LEFT BREAST SENTINEL LYMPH NODE #2: - NEGATIVE E. 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 F. 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 MARGINS ARE FREE. G. RIGHT BREAST ANTERIOR 12:00 TISSUE: - NEGATIVE H. LEFT BREAST 3:00 POSTERIOR MARGIN: - NEGATIVE I. RIGHT MASTECTOMY SKIN MARGIN: - NEGATIVE INVASIVE CARCINOMA OF THE BREAST: Resection SPECIMEN PROCEDURE: Total mastectomy SPECIMEN LATERALITY: Left TUMOR HISTOLOGIC TYPE: Mucinous carcinoma HISTOLOGIC TYPE COMMENT: 2 components -grade 1 mucinous adenocarcinoma and a grade 2 ductal carcinoma of no special type Pathology Reports Accession: Collected Date/Time: Received Date/Time: Pathologist: [id number] 03/22/2025 16:38 EDT 03/23/2025 07:13 EDT CLAUDIO MONSALVE MD DIAGNOSIS: GLANDULAR (ACINAR) / TUBULAR DIFFERENTIATION: Score 2 NUCLEAR PLEOMORPHISM: Score 2 MITOTIC RATE: Score 2 OVERALL GRADE: Grade 2 (scores of 6 or 7) TUMOR SIZE: GREATEST DIMENSION OF LARGEST INVASIVE FOCUS (MILLIMETERS) - 18 mm DUCTAL CARCINOMA IN SITU (DCIS): PRESENT Tumor Extent TUMOR EXTENT: Not applicable LYMPHATIC AND / OR VASCULAR INVASION: Not identified TREATMENT EFFECT IN THE BREAST: No known presurgical therapy TREATMENT EFFECT IN THE LYMPH NODES: Not applicable MARGINS MARGIN STATUS FOR INVASIVE CARCINOMA: All margins negative for invasive carcinoma DISTANCE FROM INVASIVE CARCINOMA TO CLOSEST MARGIN: GREATER THAN - 10 mm MARGIN STATUS FOR DCIS: All margins negative for DCIS DISTANCE FROM DCIS TO CLOSEST MARGIN: GREATER THAN - 10 mm CLOSEST MARGIN(S) TO DCIS: Not applicable REGIONAL LYMPH NODES REGIONAL LYMPH NODE STATUS: All regional lymph nodes negative for tumor TOTAL NUMBER OF LYMPH NODES EXAMINED (SENTINEL AND NON-SENTINEL): 4 NUMBER OF SENTINEL NODES EXAMINED: 4 DISTANT METASTASIS DISTANT SITE(S) INVOLVED: Not applicable pTNM CLASSIFICATION (AJCC 8th Edition) Reporting of pT, pN, and (when applicable) pM categories is based on information available to the pathologist at the time the report is i (more content not included)... [facility] MAIN Oncology Visit Reporton 06-06 Oncology Visit Report [facility] [address] [place], [place] [address] [address] OFFICE VISIT Date of Service: 06/23/25 1003 MR#: [id number] Acct: [id number] Name: AMAYA GARCIA JASMYNE Rep #: [id number] : 1955 From: Brando Chacon MD Age/Sex: 69/F [place] [facility] [place]: Signed HPI Subjective Date of Service 06/23/25 Chief Complaint F/u for L breast cancer. History of Present Illness 69-year-old woman with h/o left breast DCIS She underwent stereotactic breast biopsy on December 25, 2016 which showed DCIS, ER/CT positive. She had left breast lumpectomy and sentinel node biopsy on January 15, 2017 which showed DCIS with no wilton involvement. She completed radiation therapy to the left breast from 02/19/2017 to 04/14/2017. Tamoxifen April 15, 2017- February 2023. Developed L breast nodule. Had mammogram and US. Biopsy of left breast nodule on 12/22/2024 showed invasive ductal carcinoma, ER/CT positive, HER2 negative by FISH. Biopsy of R breast showed DCIS on 01/06/2025. Had lower back pain and worried that it is metastatic disease so CT and bone scan were requested. CT on 01/28/2025 was negative. Bone scan on 02/07/2025 on was negative. Had breast surgery and plastic surgery in [place] on 03/22/2025. Bilateral mastectomy, left axillary dissection and bilateral breast reconstruction with tissue automotive professional and [employer] on the right and latissimus flap on the left. 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 Pathology for left breast mastectomy showed invasive ductal carcinoma, grade 1 mucinous component and grade 2 component of no specific type measuring 1.8 cm, margins negative, sentinel nodes 2 negative, Pathologic staging pT1c pN0. ER +81 to 90%, CT +21 to 30%, HER2 2+ by IHC. Comes for follow-up to discuss further management. She feels well. [facility] Medical History Abnormal mammogram of right breast Abnormal ultrasound of breast Left breast mass Urinary tract infection Wears glasses Cancer Alcohol use Diabetes Rheumatoid arthritis Bladder disease Cirrhosis Easy bruising History of IBS Former smoker BiPAP (biphasic positive airway pressure) dependence History of edema History of stress test IBS (irritable bowel syndrome) DOROTEO (obstructive sleep apnea) Obesity Vitamin D deficiency Breast cancer SOB (shortness of breath) Hyperlipidemia Diverticulitis Arthritis Surgical History H/O mastectomy H/O cystoscopy H/O wrist surgery H/O breast surgery History of shoulder surgery History of tonsillectomy and adenoidectomy History of tubal ligation History of lumpectomy History of section Family History Mother CVA (cerebral vascular accident) Arthritis Heart disease Father Hypertension Heart disease Diabetes Aunt Breast cancer Grandmother Breast cancer Other Angina at rest Asthma Coagulation disorder High cholesterol Myocardial infarction Social History Smoking Status: Former smoker Tobacco: How many years used: 20 how long ago did patient quit smokin, 1ppd second hand exposure: Yes alcohol intake: current alcohol intake frequency: a few times a month Alcohol type: beer details: occasionally substance use type: does not use what type of physical activity do you participate in: none frequency: other duration: other do you feel safe at home: Yes Intake Vital Signs 05/30/25 10:49 06/23/25 10:03 Height 5 ft 1 in 5 ft 1 in Weight: 90.265 kg BMI 37.5 BP 112/75 Blood Pressure Location Lt brachial Position Sitting Respiration 16 Pulse 69 Pulse Source Monitor Temp 98.1 F Temperature Source Temporal Artery Pulse Oximetry (%) 98 Oxygen Delivery Method room air Intake Machine Edge Bander Required: No Accompanied by: Daughter Is patient in pain?: No Allergies No Known Allergies Allergy (Verified 06/23/25 10:06) Medications ???Medication ???Instructions ???Recorded ???Confirmed ???Type trazodone 150 mg tablet 150 mg PO QHS 01/10/17 06/23/25 Hi story escitalopram oxalate 10 mg tablet 10 mg PO DAILY 02/25/17 06/23/25 History rosuvastatin 40 mg tablet 40 mg PO DAILY 12/31/17 06/23/25 H istory cholecalciferol (vitamin D3) 25 1,000 unit PO DAILY 05/30/2006/23 History mcg (1,000 unit) tablet valacyclovir 500 mg tablet 500 mg PO DAILY 05/30/20 06/23/25 History cyclobenzaprine 5 mg tablet 5 mg PO DAILY PRN muscle spasm 04/2606/23/25 History meloxicam 15 mg tablet 15 mg PO QDAY 03/11/24 06/23/25 Hi story ezetimibe 10 mg tablet (Zetia) 10 mg PO DAILY #90 tabs 08/06 (more content not included)... Normal [facility] Bone density reportOrdered B y: Douglas Hauser on 06-08-2025 Study report Skeletal system DXA [facility] [address] [place], [place] [address] Dexa Bone Density Study MR#: [id number] Acct: [id number] Name: AMAYA GARCIA Rep #: [id number] : 1955 F 69 From: Ammon Hauser MD PCP: LANA Ramirez Status: REG CLI Study:Dexa Bone Density Study Date of Exam: 06/08/25 Exam# [id number] Ordering Dr: Juma Chacon MD PROCEDURE: DEXA BONE DENSITY STUDY 06/08/2025 REASON FOR EXAM: HX OF BREAST CA F, age 69 y/o . Postmenopausal. TECHNIQUE: Procedure Code: BDDBD Modality: DX Procedure: DEXA BONE DENSITY STUDY COMPARISON: Prior study dated February 20, 2023. FINDINGS: BMD and T-SCORES Lumbar spine: 0.905 g/cm2, T-score -1.2 Levels: L1 through L4 Change from prior: Loss of 7.5%. Left femoral neck: 0.739 g/cm2, T-score -1.0 Femoral neck comparison data not recommended for monitoring change. Left total hip: 0.898 g/cm2, T-score -0.4 Change from prior: Loss of 10.2%. Right femoral neck: 0.732 g/cm2, T-score -1.1 Femoral neck comparison data not recommended for monitoring change. Right total hip: 0.862 g/cm2, T-score -0.7 Change from prior: Loss of 13.8%. The World Health Organization has defined the following categories based on bonedensity: Normal bone density: T-score equal to or greater than -1.0 Osteopenia: T-score between -1.0 and -2.5 Osteoporosis: T-score equal to or less than -2.5 FRAX (or Comparable) Fracture Risk Assessment: 10 Year Probability of Fracture: Major Osteoporotic Fracture: 8% Hip Fracture: 0.7% (Note: FRAX is not to be reported in setting of normal range bone density, osteoporosis on DEXA, known history of osteoporosis, prior osteoporotic hip or vertebral fracture, or for any patient undergoing pharmacological treatment for bone loss.) The National Osteoporosis Foundation (NOF) recommends pharmacological treatment for patients with a FRAX 10-year risk of 3% or higher for a hip fracture, or 20% or higher for a major osteoporotic fracture, to prevent osteoporosis and reduce fracture risk. The patient does meet the pharmacological treatment recommendations for prevention of osteoporosis. BD/Dexa Bone Density Study IMPRESSION: OSTEOPENIA. Recommend follow-up as clinically warranted. Reading Location: [facility] CC: LANA Mckay; Dr. Brando Chacon MD ~ Claims Vice President: Signed [facility] Dexa Bone Density Studyon Dexa Bone Density Study [facility] Imaging Services [address] [place] [address] Dexa Bone Density Study MR#: [id number] Acct: [id number] Name: AMAYA GARCIA Rep #: [id number] : 1955 F 69 From: Douglas bojorquez MD PCP: LANA Ramirez Status: REG CLI Study: Dexa Bone Density Study Date of Exam: 06/08/25 Exam# [id number] Ordering Dr: Brando Chacon MD PROCEDURE: DEXA BONE DENSITY STUDY 06/08/2025 REASON FOR EXAM: HX OF BREAST CA F, age 69 y/o . Postmenopausal. TECHNIQUE: Procedure Code: BDDBD Modality: DX Procedure: DEXA BONE DENSITY STUDY COMPARISON: Prior study dated February 20, 2023. FINDINGS: BMD and T-SCORES Lumbar spine: 0.905 g/cm2, T-score -1.2 Levels: L1 through L4 Change from prior: Loss of 7.5%. Left femoral neck: 0.739 g/cm2, T-score -1.0 Femoral neck comparison data not recommended for monitoring change. Left total hip: 0.898 g/cm2, T-score -0.4 Change from prior: Loss of 10.2%. Right femoral neck: 0.732 g/cm2, T-score -1.1 Femoral neck comparison data not recommended for monitoring change. Right total hip: 0.862 g/cm2, T-score -0.7 Change from prior: Loss of 13.8%. The World Health Organization has defined the following categories based on bone density: Normal bone density: T-score equal to or greater than -1.0 Osteopenia: T-score between -1.0 and -2.5 Osteoporosis: T-score equal to or less than -2.5 FRAX (or Comparable) Fracture Risk Assessment: 10 Year Probability of Fracture: Major Osteoporotic Fracture: 8% Hip Fracture: 0.7% (Note: FRAX is not to be reported in setting of normal range bone density, osteoporosis on DEXA, known history of osteoporosis, prior osteoporotic hip or vertebral fracture, or for any patient undergoing pharmacological treatment for bone loss.) The National Osteoporosis Foundation (NOF) recommends pharmacological treatment for patients with a FRAX 10-year risk of 3% or higher for a hip fracture, or 20% or higher for a major osteoporotic fracture, to prevent osteoporosis and reduce fracture risk. The patient does meet the pharmacological treatment recommendations for prevention of osteoporosis. BD/Dexa Bone Density Study IMPRESSION: OSTEOPENIA. Recommend follow-up as clinically warranted. Reading Location: [place] [address] CC: LANA Mckay; Dr. Brando Chacon MD Claims Vice President: Signed Normal [facility] CA 15-3on 05-31-2025 CA 15-3 6.2 U/mL Normal 0.0-25.0 [facility] Comment on above: Result Comment: [employer] Electrochemiluminescence Immunoassay (ECLIA) Values obtained with different assay methods or kits cannot be used interchangeably. Results cannot be interpreted as absolute evidence of the presence or absence of malignant disease. Performed at: [place] [id number] Executive Producer: Stevie Nelson PhD, Phone: [phone] Performed By: #### L 3100.5040, L3100.5030 ####[facility] [address] [facility] [place], [address] CA 27.29on 05-31-2025 CA 27.29 11.9 U/mL Normal 0.0-38.6 [facility] Comment on above: Result Comment: Wiseryouaur Immunochemiluminometric Methodology (ICMA) Values obtained with different assay methods or kits cannot be used interchangeably. Results cannot be interpreted as absolute evidence of the presence or absence of malignant disease. Performed By: #### L 3100.5040, L3100.5030 ####[facility] [id number] [facility] [place], [address] CA 15-3Ordered By: Brando patel on 05-30-2025 CA 15-3 6.2 U/mL 0.0-25.0 [facility] Comment on above: [employer] El ectrochemiluminescence Immunoassay(ECLIA)Values obtained with different assay methods or kits cannotbe used interchangeably. Results cannot be interpreted asabsolute evidence of the presence or absence of malignantdisease.Performed at: [facility] [id number] [place], [place] [id number] Director: Stevie Nelson PhD, Phone: [phone] CA 27.29Ordered By: Brnado solis on 05-30-2025 CA 27.29 11.9 U/mL 0.0-38.6 [facility] Comment on above: [employer] Trion[employer]ur Immu nochemiluminometric Methodology (ICMA)Values obtained with different assay methods or kits cannotbe used interchangeably. Results cannot be interpreted asabsolute evidence of the presence or absence of malignantdisease. Oncology Visit Reporton 05-07 Oncology Visit Report [facility] [place] [address] OFFICE VISIT Date of Service: 05/30/25 1047 MR#: [id number] Acct: [id number] Name: AMAYA GARCIA JASMYNE Rep #: [id number] : 1955 From: Brando Chacon MD Age/Sex: 69/F Location: [facility] [place] Status: Signed HPI Subjective Date of Service 05/30/25 Chief Complaint F/u for L breast cancer. History of Present Illness 69-year-old woman with h/o left breast DCIS She underwent stereotactic breast biopsy on December 25, 2016 which showed DCIS, ER/CT positive. She had left breast lumpectomy and sentinel node biopsy on January 15, 2017 which showed DCIS with no wilton involvement. She completed radiation therapy to the left breast from 02/19/2017 to 04/14/2017. Tamoxifen April 15, 2017- February 2023. Developed L breast nodule. Had mammogram and US. Biopsy of left breast nodule on 12/22/2024 showed invasive ductal carcinoma, ER/CT positive. Biopsy of R breast showed DCIS on 01/06/2025. Had lower back pain and worried that it is metastatic disease so CT and bone scan were requested. CT on 01/28/2025 was negative. Bone scan on 02/07/2025 on was negative. Had breast surgery and plastic surgery in [place] on 03/22/2025. Bilateral mastectomy, left axillary dissection and bilateral breast reconstruction with tissue automotive professional and [employer] on the right and latissimus flap on the left. 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 Pathology for left breast mastectomy showed invasive ductal carcinoma, grade 1 mucinous component and grade 2 of no specific type measuring 1.8 cm, margins negative, sentinel nodes 2 negative, PFSH Medical History Abnormal mammogram of right breast Abnormal ultrasound of breast Left breast mass Urinary tract infection Wears glasses Cancer Alcohol use Diabetes Rheumatoid arthritis Bladder disease Cirrhosis Easy bruising History of IBS Former smoker BiPAP (biphasic positive airway pressure) dependence History of edema History of stress test IBS (irritable bowel syndrome) DOROTEO (obstructive sleep apnea) Obesity Vitamin D deficiency Breast cancer SOB (shortness of breath) Hyperlipidemia Diverticulitis Arthritis Surgical History H/O mastectomy H/O cystoscopy H/O wrist surgery H/O breast surgery History of shoulder surgery History of tonsillectomy and adenoidectomy History of tubal ligation History of lumpectomy History of section Family History Mother CVA (cerebral vascular accident) Arthritis Heart disease Father Hypertension Heart disease Diabetes Aunt Breast cancer Grandmother Breast cancer Other Angina at rest Asthma Coagulation disorder High cholesterol Myocardial infarction Social History Smoking Status: Former smoker Tobacco: How many years used: 20 how long ago did patient quit smokin, 1ppd second hand exposure: Yes alcohol intake: current alcohol intake frequency: a few times a month Alcohol type: beer details: occasionally substance use type: does not use what type of physical activity do you participate in: none frequency: other duration: other do you feel safe at home: Yes ROS Constitutional Constitutional: Reports systems reviewed and no addt'l complaints, except as documented Eyes Eyes: Reports systems reviewed and no addt'l complaints, except as documented ENT HEENT: Reports systems reviewed and no addt'l complaints, except as documented Cardiovascular Cardiovascular: Reports systems reviewed and no addt'l complaints, except as documented Respiratory/Chest Respiratory/Chest: Reports systems reviewed and no addt'l complaints, except as documented Gastrointestinal Gastrointestinal: Reports systems reviewed and no addt'l complaints, except as documented Genitourinary Genitourinary: Reports systems reviewed and no addt'l complaints, except as documented Musculoskeletal Musculoskeletal: Reports systems reviewed and no addt'l complaints, except as documented Integumentary Integumentary: Reports systems reviewed and no addt'l complaints, except as documented Neurologic Neurologic: Reports systems reviewed and no addt'l complaints, except as documented Psychiatric Psychiatric: Reports systems reviewed and no addt'l complaints, except as documented Endocrine Endocrinology: Reports systems reviewed and no addt'l complaints, except as documented Hematologic/Lymphatic Hematologic/Lymphatic: Reports systems reviewed and no addt'l complaints, except as documented Allergic/Immunologic Allergic/Immunologic: Reports systems reviewed and no a (more content not included)... Normal [facility] Relevant diagnostic tests/la boratory data Narrativeon 05-19-2025 Fall risk assessment no [employer] Work Phone: MEDS REVIEW Documentation of cur rent medications (procedure) [employer] Work Phone: MEDS REVIEWD Medications reviewed with changes [employer] Work Phone: Pulmonary Visit Reporton Pulmonary Visit Report [facility] Pulmonary Medicine of [address] [place] [address] OFFICE VISIT Date of Service: 05/16/25 MR#: [id number] Acct: [id number] Name: RADHAAMAYA PEREZ JASMYNE Rep #: [id number] : 1955 Provider: LANA Emerson Age/Sex: 69/F Location: [facility] [place] Status: Signed Assessment and Plan Assessment and Plan (1) DOROTEO (obstructive sleep apnea): Status: Chronic (2) Obesity: Status: Chronic Qualifiers: Obesity type: due to excess calories Obesity classification: adult class 3 (BMI >= 40) Serious obesity comorbidity presence: with serious comorbidity Body mass index: BMI 40.0-44.9 Qualified Code(s): E66.01 - Morbid (severe) obesity due to excess calories; Z68.41 - Body mass index (BMI) 40.0-44.9, adult Plan Stable, she is using and benefiting from Pap therapy. No indication for titration study at this time. Contact the office for any new or worsening symptoms in the meantime. Continue to encourage healthy weight loss. Follow-up in 6 months. Contact the office with any new or worsening symptoms in the meantime. Plan Details Additional Comments: This note was generated with [employer]te dictation software. It may contain incorrect words, spelling, and punctuation that were not noted in checking the note before signing. Follow Up: 6 Months HPI 1 Y FU Chief Complaint: Sleep apnea HPI Comments Details: This patient presents to the office today for follow-up of her obstructive sleep apnea. She is ambulatory and on room air. She has not been seen in the ED or urgent care for any respiratory illnesses since her last office visit. She has not required any antibiotics or prednisone for any breathing problems. She was hospitalized at [facility] on March 22, 2025 for bilateral mastectomy due to 2 different breast cancers. The patient was discharged with [address] She continues complete smoking cessation. If you recall, she quit smoking back in 2000. She is no longer eligible for LDCT. She denies any shortness of breath. She denies any cough, sputum production or hemoptysis. She has not had any wheezing, chest tightness, chest pain or palpitations. She also denies any fever, chills or body aches. She wakes up feeling rested and refreshed. She typically utilizes her PAP device with all sleep, however recently she has not been sleeping well while she was recovering from her double mastectomy. She was often times sleeping on the couch due to pain and discomfort. The drains also made it difficult to get comfortable in bed. She recently had the last drain removed. The patient is now sleeping back in the bed and compliant with PAP therapy every night. She is not having difficulty with dry mouth or morning headaches. She is not requiring naps. She is not nodding off to sleep unintentionally. Compliance report for the past 90 days shows 57 % compliance and average use of 8 hours and 37 minutes per night. Current setting is BiPAP 11/7 cmH2O with residual AHI of 3.6 events per hour. Recently leaks appear to be more problematic. Intake Vital Signs 05/13/24 07:26 05/16/25 08:01 Height 5 ft 1 in 5 ft 1 in Weight: 194 lb BMI 36.6 BP 132/85 H Blood Pressure Location Lt radial Position Sitting Respiration 18 Pulse 78 Pulse Source Monitor Temp 97.4 F L Temperature Source Temporal Artery Pulse Oximetry (%) 94 Oxygen Delivery Method room air Comment Left wrist or legs for BP due to Bilat Mastectomy Intake Visit Reasons: 1 Y FU Chief Complaint: 12 month [facility] Machine Edge Bander Required: No DME Vendor: AUDRA Accompanied by: Self Is patient in pain?: No Allergies No Known Allergies Allergy (Verified 05/16/25 10:18) Medications ???Medication ???Instructions ???Recorded ???Confirmed ???Type trazodone 150 mg tablet 150 mg PO QHS 01/10/17 05/16/25 Hi story escitalopram oxalate 10 mg tablet 10 mg PO DAILY 02/25/17 05/16/25 History rosuvastatin 40 mg tablet 40 mg PO DAILY 12/31/17 05/16/25 H istory cholecalciferol (vitamin D3) 25 1,000 unit PO DAILY 05/30/2005/16 History mcg (1,000 unit) tablet valacyclovir 500 mg tablet 500 mg PO DAILY 05/30/20 05/16/25 History cyclobenzaprine 5 mg tablet 5 mg PO DAILY PRN muscle spasm 04/2605/16/25 History meloxicam 15 mg tablet 15 mg PO QDAY 03/11/24 05/16/25 Hi story ezetimibe 10 mg tablet (Zetia) 10 mg PO DAILY #90 tabs 08/18/24 0 05/16/25 Rx fesoterodine 4 mg tablet,extended 4 mg PO QDAY 03/10/25 05/16/25 Hi story release 24 hr methocarbamol 750 mg tablet 750 mg PO TID 05/16/25 05/16/25 Hi story Have you fallen in the past year?: No PFSH Medical History (Reviewed 05/16/25 @ 10:26 by Beverly Emerson COMPUTER RECYCLING WORKER, COMPUTER RECYCLING WORKER-C) Abnormal mammogram of right breast Abnormal ultrasound of br (more content not included)... Normal [facility] Laboratory - Chemistry and C hemistry - challengeOrdered By: Chelsea Gilman on 05-13-2025 Bilirubin Ql (U) Negative [facility] Glucose Ql (U) Negative [facility] Ketones Ql (U) Negative [facility] pH (U) 6 [pH] [facility] Specific gravity (U) [Rel density] 1.020 [facility] Urobilinogen (U) [Mass/Vol] Negative [facility] Laboratory - Hematology and Cell countsOrdered By: Chelsea Gilman on 05-13-2025 Hemoglobin Ql (U) Negative [facility] Laboratory - UrinalysisOrder ed By: Chelsea Gilman on 05-13-2025 Nitrite Ql (U) Negative [facility] Protein Ql (U) Negative [facility] MR/BMSDulce 05-13-2025 MR/BMSKEVIN [facility] [address], [address] [place] [address] OFFICE VISIT Date of Service: 05/13/25 MR#: [id number] Acct: [id number] Name: AMAYA GARCIA JASMYNE Rep #: [id number] : 1955 Provider: Dr. Chelsea Brown i, MD Age/Sex: 69/F Location: [facility] [place] Status: Signed Intake Vital Signs 03/10/25 09:32 04/20/25 11:00 05/13/25 10:37 Height 5 ft 1 in 5 ft 1 in 5 ft 1 in Weight: 192 lb BMI 36.2 BP 144/85 H Pulse 81 Intake Visit Reasons: 12MO MED F/U Chief Complaint: 12 month toviaz follow up Machine Edge Bander Required: No Accompanied by: Self Is patient in pain?: No Allergies No Known Allergies Allergy (Verified 05/13/25 10:36) Medications ???Medication ???Instructions ???Recorded ???Confirmed ???Type trazodone 150 mg tablet 150 mg PO QHS 01/10/17 05/13/25 Hi story escitalopram oxalate 10 mg tablet 10 mg PO DAILY 02/25/17 05/13/25 History rosuvastatin 40 mg tablet 40 mg PO DAILY 12/31/17 05/13/25 H istory cholecalciferol (vitamin D3) 25 1,000 unit PO DAILY 05/30/2005/13 History mcg (1,000 unit) tablet valacyclovir 500 mg tablet 500 mg PO DAILY 05/30/20 05/13/25 History cyclobenzaprine 5 mg tablet 5 mg PO DAILY PRN muscle spasm 04/2605/13/25 History meloxicam 15 mg tablet 15 mg PO QDAY 03/11/24 05/13/25 Hi story ezetimibe 10 mg tablet (Zetia) 10 mg PO DAILY #90 tabs 08/18/24 0 05/13/25 Rx fesoterodine 4 mg tablet,extended 4 mg PO QDAY 03/10/25 05/13/25 Hi story release 24 hr Have you fallen in the past year?: No Nurse's Note: bladder scan PVR 13cc. PFSH Medical History Abnormal mammogram of right breast Abnormal ultrasound of breast Left breast mass Urinary tract infection Wears glasses Cancer Alcohol use Diabetes Rheumatoid arthritis Bladder disease Cirrhosis Easy bruising History of IBS Former smoker BiPAP (biphasic positive airway pressure) dependence History of edema History of stress test IBS (irritable bowel syndrome) DOROTEO (obstructive sleep apnea) Obesity Vitamin D deficiency Breast cancer SOB (shortness of breath) Hyperlipidemia Diverticulitis Arthritis Surgical History H/O cystoscopy H/O wrist surgery H/O breast surgery History of shoulder surgery History of tonsillectomy and adenoidectomy History of tubal ligation History of lumpectomy History of section Family History Mother CVA (cerebral vascular accident) Arthritis Heart disease Father Hypertension Heart disease Diabetes Aunt Breast cancer Grandmother Breast cancer Other Angina at rest Asthma Coagulation disorder High cholesterol Myocardial infarction Social History Smoking Status: Former smoker Tobacco: How many years used: 20 how long ago did patient quit smokin, 1ppd second hand exposure: Yes alcohol intake: current alcohol intake frequency: a few times a month Alcohol type: beer details: occasionally substance use type: does not use what type of physical activity do you participate in: none frequency: other duration: other do you feel safe at home: Yes HPI HPI Urology Chief Complaint: 12 month toviaz follow up Details: AMAYA GARCIA, is a 69 F. She is here for medication follow up. She has been taking Toviaz 4mg daily. She is having side effects from the medication. The dry mouth is bad. She would really like to resume Gemtesa. She has not had any urinary tract infections since the last visit. She has not had any blood in the urine since the last visit. She has no new urologic concerns to discuss today. She did have surgical resection. The cancer was larger than expected but margins were negative. They found 2 different types of cancer, one in each breast. She has not yet seen oncology, but it was recommended chemotherapy by [facility]. She is feeling her age from all of this. ROS Const Constitutional: No chills, fatigue, fever(s), headache(s), night sweats, weakness, weight change, abnormal sleep pattern or change in appetite Eyes Eyes: No change in vision ENT ENT: No headache(s) or dry mouth Resp Respiratory: No cough, chest congestion, shortness of breath or wheezing Cardio Cardiology: Positive for other (No chest pain.); No shortness of breath, irregular heart rhythm or lightheadedness Gastro GI: Positive for other (No nausea.); No abdominal pain, change in bowel habits, constipation, diarrhea or vomiting Musc Musculoskeletal: No abnormal gait Skin Skin: No yellowing of the eye, lesions, itchy eyes, rash or skin ulcer Neuro Neurology: No abnormal gait, confusion, dizziness, weakness, he (more content not included)... Normal [facility] No Panel InformationOrdered By: Chelsea Gilman on 05-13-2025 Urine Leukocytes Negatve [facility] Urine Non-Hemolyzed Blood Negative [facility] Supplemental Reporton 2024 Supplemental Report . Pathology Reports Accession: Collected Date/Time: Received Date/Time: Pathologist: [id number] 03/22/2025 16:38 EDT 03/23/2025 07:13 EDT CLAUDIO MONSALVE MD Supplemental Report SUPPLEMENTAL: [facility] [address] [place] [id number] HER2 FISH Analysis Clinical summary and Indication: Invasive ductal carcinoma. Body Site: Breast, Left Comment: FINAL HER2 INTERPRETATION: In conjunction with the equivocal (2+) HER2 Immunostain result provided, the final HER2 interpretation of this specimen is NEGATIVE (in accordance with ASCO/CAP guidelines). HER2 FISH Results: 1.3 Interpretation: Equivocal-Group 4 Number of tumor cells counted: 20 + 20 Number of observers: 2 Average HER2 Copy number: 4.08 Average CEP17 copy number: 3.13 Ratio of average HER2/CEP17: 1.3 Sample adequate for analysis: Yes Complete report scanned into chart. Verified by Diagnostic interpretation performed at [facility] CLAUDIO MONSALVE Sign out Date: 04/15/2025 11:19 Performing Lab: [address] Pathology Dept Supplemental Report SUPPLEMENTAL: Part E DCIS with microinvasion microinvasion is greater than 5 mm from the superior aspect, DCIS approaches to within 3 mm of the superior aspect Verified by Diagnostic interpretation performed at [facility] CLAUDIO MONSALVE Sign out Date: 03/25/2025 16:32 Performing Lab: [address] Pathology Dept Final Surgical Pathology Report DIAGNOSIS: A. RIGHT BREAST SENTINEL LYMPH NODE #1: - NEGATIVE B. RIGHT BREAST SENTINEL LYMPH NODE #2: - NEGATIVE C. LEFT BREAST SENTINEL LYMPH NODE #1: - NEGATIVE Pathology Reports Accession: Collected Date/Time: Received Date/Time: Pathologist: [id number] 03/22/2025 16:38 EDT 03/23/2025 07:13 EDT CLAUDIO MONSALVE MD DIAGNOSIS: D. LEFT BREAST SENTINEL LYMPH NODE #2: - NEGATIVE E. 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 F. 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 MARGINS ARE FREE. G. RIGHT BREAST ANTERIOR 12:00 TISSUE: - NEGATIVE H. LEFT BREAST 3:00 POSTERIOR MARGIN: - NEGATIVE I. RIGHT MASTECTOMY SKIN MARGIN: - NEGATIVE INVASIVE CARCINOMA OF THE BREAST: Resection SPECIMEN PROCEDURE: Total mastectomy SPECIMEN LATERALITY: Left TUMOR HISTOLOGIC TYPE: Mucinous carcinoma HISTOLOGIC TYPE COMMENT: 2 components -grade 1 mucinous adenocarcinoma and a grade 2 ductal carcinoma of no special type GLANDULAR (ACINAR) / TUBULAR DIFFERENTIATION: Score 2 NUCLEAR PLEOMORPHISM: Score 2 MITOTIC RATE: Score 2 OVERALL GRADE: Grade 2 (scores of 6 or 7) TUMOR SIZE: GREATEST DIMENSION OF LARGEST INVASIVE FOCUS (MILLIMETERS) - 18 mm DUCTAL CARCINOMA IN SITU (DCIS): PRESENT Tumor Extent TUMOR EXTENT: Not applicable LYMPHATIC AND / OR VASCULAR INVASION: Not identified TREATMENT EFFECT IN THE BREAST: No known presurgical therapy TREATMENT EFFECT IN THE LYMPH NODES: Not applicable MARGINS MARGIN STATUS FOR INVASIVE CARCINOMA: All margins negative for invasive carcinoma DISTANCE FROM INVASIVE CARCINOMA TO CLOSEST MARGIN: GREATER THAN - 10 mm MARGIN STATUS FOR DCIS: All margins negative for DCIS DISTANCE FROM DCIS TO CLOSEST MARGIN: GREATER THAN - 10 mm CLOSEST MARGIN(S) TO DCIS: Not applicable REGIONAL LYMPH NODES REGIONAL LYMPH NODE STATUS: All regional lymph nodes negative for tumor TOTAL NUMBER OF LYMPH NODES EXAMINED (SENTINEL AND NON-SENTINEL): 4 NUMBER OF SENTINEL NODES EXAMINED: 4 DISTANT METASTASIS DISTANT SITE(S) INVOLVED: Not applicable pTNM CLASSIFICATION (AJCC 8th Edition) Reporting of pT, pN, and (when applicable) pM categories is based on information available to the pathologist at the time the report is issued. As per the AJCC (Chapter 1, 8th Ed.) it is the managing physician's responsibility to establish the final pathologic stage based upon all pertinent information, including but potentially not limited to this pathology report. MODIFIED CLASSIFICATION: Not applicable PT CATEGORY: pT1c T SUFFIX: (m) Pathology Reports Accession: Collected Date/Time: Received Date/Time: Pathologist: [id number] 03/22/2025 16:38 EDT 03/23/2025 07:13 EDT CLAUDIO MONSALVE MD DIAGNOSIS: PN CATEGORY: pN0 N SUFFIX: (sn) PM CATEGORY: Not applicable - pM cannot be determined from the submitted specimen(s) MICROBIOLOGY TECHNOLOGIST TUMOR BLOCK(S): F4 Breast Biomarker Reporting Template TEST(S) PERFORMED: ESTROGEN RECEPTOR (ER) STATUS: Positive (greater than 10% of cells demonstrate nuclear positivity) PERCENTAGE OF CELLS WITH NUCLEA (more content not included)... [facility] Final Surgical Pathology Rep [facility] 03-25-2025 Final Surgical Pathology Report . Pathology Reports Accession: Collected Date/Time: Received Date/Time: Pathologist: [id number] 03/22/2025 16:38 EDT 03/23/2025 07:13 CLAUDIO TORRES MD Final Surgical Pathology Report DIAGNOSIS: A. RIGHT BREAST SENTINEL LYMPH NODE #1: - NEGATIVE B. RIGHT BREAST SENTINEL LYMPH NODE #2: - NEGATIVE C. LEFT BREAST SENTINEL LYMPH NODE #1: - NEGATIVE D. LEFT BREAST SENTINEL LYMPH NODE #2: - NEGATIVE E. 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 F. 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 MARGINS ARE FREE. G. RIGHT BREAST ANTERIOR 12:00 TISSUE: - NEGATIVE H. LEFT BREAST 3:00 POSTERIOR MARGIN: - NEGATIVE I. RIGHT MASTECTOMY SKIN MARGIN: - NEGATIVE INVASIVE CARCINOMA OF THE BREAST: Resection SPECIMEN PROCEDURE: Total mastectomy SPECIMEN LATERALITY: Left TUMOR HISTOLOGIC TYPE: Mucinous carcinoma HISTOLOGIC TYPE COMMENT: 2 components -grade 1 mucinous adenocarcinoma and a grade 2 ductal carcinoma of no special type GLANDULAR (ACINAR) / TUBULAR DIFFERENTIATION: Score 2 NUCLEAR PLEOMORPHISM: Score 2 MITOTIC RATE: Score 2 OVERALL GRADE: Grade 2 (scores of 6 or 7) TUMOR SIZE: GREATEST DIMENSION OF LARGEST INVASIVE FOCUS (MILLIMETERS) - 18 mm DUCTAL CARCINOMA IN SITU (DCIS): PRESENT Tumor Extent TUMOR EXTENT: Not applicable LYMPHATIC AND / OR VASCULAR INVASION: Not identified TREATMENT EFFECT IN THE BREAST: No known presurgical therapy TREATMENT EFFECT IN THE LYMPH NODES: Not applicable MARGINS MARGIN STATUS FOR INVASIVE CARCINOMA: All margins negative for invasive carcinoma DISTANCE FROM INVASIVE CARCINOMA TO CLOSEST MARGIN: GREATER THAN - 10 mm MARGIN STATUS FOR DCIS: All margins negative for DCIS DISTANCE FROM DCIS TO CLOSEST MARGIN: GREATER THAN - 10 mm CLOSEST MARGIN(S) TO DCIS: Not applicable Pathology Reports Accession: Collected Date/Time: Received Date/Time: Pathologist: [id number] 03/22/2025 16:38 EDT 03/23/2025 07:13 CLAUDIO TORRES MD DIAGNOSIS: REGIONAL LYMPH NODES REGIONAL LYMPH NODE STATUS: All regional lymph nodes negative for tumor TOTAL NUMBER OF LYMPH NODES EXAMINED (SENTINEL AND NON-SENTINEL): 4 NUMBER OF SENTINEL NODES EXAMINED: 4 DISTANT METASTASIS DISTANT SITE(S) INVOLVED: Not applicable pTNM CLASSIFICATION (AJCC 8th Edition) Reporting of pT, pN, and (when applicable) pM categories is based on information available to the pathologist at the time the report is issued. As per the AJCC (Chapter 1, 8th Ed.) it is the managing physician's responsibility to establish the final pathologic stage based upon all pertinent information, including but potentially not limited to this pathology report. MODIFIED CLASSIFICATION: Not applicable PT CATEGORY: pT1c T SUFFIX: (m) PN CATEGORY: pN0 N SUFFIX: (sn) PM CATEGORY: Not applicable - pM cannot be determined from the submitted specimen(s) MICROBIOLOGY TECHNOLOGIST TUMOR BLOCK(S): F4 Breast Biomarker Reporting Template TEST(S) PERFORMED: ESTROGEN RECEPTOR (ER) STATUS: Positive (greater than 10% of cells demonstrate nuclear positivity) PERCENTAGE OF CELLS WITH NUCLEAR POSITIVITY: 81-90% AVERAGE INTENSITY OF STAINING: Moderate PROGESTERONE RECEPTOR (PGR) STATUS: Positive PERCENTAGE OF CELLS WITH NUCLEAR POSITIVITY: 21-30% AVERAGE INTENSITY OF STAINING: Weak HER2 BY IMMUNOHISTOCHEMISTRY: Equivocal (Score 2+) COLD ISCHEMIA AND FIXATION TIMES: Meet requirements specified in latest version of the ASCO / CAP Guidelines, unless otherwise specified in the gross description. COMMENT(S): Test types for ER, CT and Her2: All FDA cleared, Vendor: [employer]. Primary antibody clones: ER: SP1, CT:1E2, Her2:4B5; Detection system: Ult[employer]iMetrix[employer] If specimens were decalcified, loss of immunoreactivity may occur; negative results should be interpreted with caution. Isolated CT positivity (in the absence of ER staining) at low levels is not a reproducible result, could be an artifact, and may not be clinically significant. Invasive carcinomas with 1 to 10% of cells staining for ER (not PgR) are reported as Low Positive and the following comment is applicable: There are limited data on the overall benefit of endocrine therapies for patients with low level (1-10%) ER expression but they currently suggest possible benefit, so patients are considered eligible for endocrine treatment. There are data that suggest invasive cancers with these results are heterogeneous in both behavior and biology and often have gene expression profiles more similar to ER negative cancers. MICROBIOLOGY TECHNOLOGIST TUMOR BLOCK(S): F4 CLINICAL INFORMATION: Procedure: BILATERAL MASTECTOMIES, BILATERAL SENTINEL LYMPH NODE MAPPING AND BIOPSY NUCLEAR MEDICINE BILATERAL (more content not included)... [facility] MAIN Final Surgical Pathology Report Event Display: SP Specimen A#1 SENTINEL LYMPH NODE RIGHT - FROZEN SECTION B#2 SENTINEL LYMPH NODE RIGHT - FROZEN SECTION C#1 SENTINEL LYMPH NODE LEFT - FROZEN SECTION D#2 SENTINEL LYMPH NODE LEFT BREAST - FROZEN SECTION ERIGHT BREAST MASTECTOMY FLEFT BREAST MASTECTOMY GRIGHT BREAST TISSUE - ANTERIOR 12:00 HLEFT BREAST TISSUE - 3:00 POSTERIOR MARGIN IRIGHT MASTECTOMY SKIN MARGIN CLAUDIO MONSALVE MD:VERIFY; Authored Date: [id number] [facility] Final Surgical Pathology Report Event Display: SP Disclaimer If ancillary studies were utilized, the following Laboratory Developed Test (LDT) disclaimer will apply: Under CLIA requirements, [facility] is qualified to perform high complexity testing. For all ancillary stains, positive and negative controls stain appropriately. Performance characteristics of immunohistochemical and chromogenic in-situ hybridization tests have been determined by [facility]. These tests are used for clinical purposes, They should not be regarded as investigational or for research. CLAUDIO MONSALVE MD:VERIFY; Authored Date: [id number] [facility] Final Surgical Pathology Report Event Display: SP Gross All parts labelled with patient name and [id number] A. Received fresh for frozen section labelled right breast sentinel lymph node #1 Is a single lymph node measuring 1.1 cm greatest dimension. AFS1 frozen section tissue resubmitted. TS-1 B. Received fresh for frozen section labelled right breast sentinel lymph node #2 Is a single lymph node measuring 1 cm. BFS1 frozen section tissue resubmitted. TS-1 C. Received fresh for frozen section labelled left breast sentinel lymph node #1 Is a single lymph node measuring up to 1.5 cm. CFS1 frozen section tissue resubmitted. TS-1 D. Received fresh for frozen section labelled left breast sentinel lymph node #2 Is a single lymph node measuring 1 cm. DFS 1 frozen section tissue resubmitted. TS-1 E. Received in formalin labelled right breast mastectomy Dimensions of overall specimen - 801 g, measures 27 x 20 x 4.5 cm. Anterior skin measures 8.5 x 4 cm with nipple measuring 1.1 x 1.1 cm Orientation -short stitch superior, long stitch lateral Inked as follows: Superior - Blue, Inferior - Green, Posterior - Black Tumor/lesion/biopsy site - located in the upper outer quadrant 11:00 area is a acosta-white, firm area measuring 1.1 x 0.9 x 1 cm. Within this area is a barbell shaped radiographic marker (E3). This area measures 0.3 cm to the blue inked superior aspect, 4 cm to the posterior margin and 7 cm to the nipple. This area is blocked out and entirely submitted. The remaining breast tissue has very scant fibrous tissue. No lymph nodes are identified in the upper outer quadrant. Specimen removed from patient @1329. Placed in Formalin Fixative @1350. Cold Ischemia time 21 minutes. Total time in formalin (in processor) 1 hrs. Total Time in Formalin Fixative 27.5 hrs. RS-14 Cassette Summary: E1 - Nipple E2-E3 -Upper outer quadrant 11:00 area 7 cm from nipple acosta-white firm area containing radiographic marker E4-E6 -Surrounding upper outer quadrant 11:00 area white fibrous tissue E7 - Upper outer quadrant 11:00 area closest black inked posterior margin E8-E10 -Upper outer quadrant additional white fibrous tissue E11-E12 -Upper inner quadrant white fibrous tissue E13 - Lateral aspect perpendicular E14 - Medial aspect perpendicular F. Received in formalin labelled left breast mastectomy Dimensions of overall specimen - 785 g, measures 21 x 19 x 4.5 cm. Anterior skin measuring 12 x 3.5 cm with a off-center nipple measuring 1.1 x 1 cm. Orientation -short stitch superior, long stitch lateral Inked as follows: Superior - Blue, Inferior - Green, Posterior - Black Tumor/lesion/biopsy site - serial sectioning reveals a white yellow firm tumor mass measuring 0.7 x 0.7 x 0.7 cm. The tumor is located at the 3:00 area lower outer quadrant approximately 8 cm from the nipple. The tumor site contains a coil shaped radiographic marker (F4). The tumor measures 1 cm to the black inked posterior margin, 2.5 cm to the anterior skin. The fibrous tissue surrounding the tumor site in the lower outer quadrant is entirely submitted. No lymph nodes identified in the upper outer quadrant. Specimen removed from patient @1510. Placed in Formalin Fixative @1607. Cold Ischemia time 57 minutes. Total time in formalin (in processor) 1 hrs. Total Time in Formalin Fixative 25.5 hrs. RS-15 Cassette Summary: F1 - Nipple F2-F4 -Lower outer quadrant 3:00 acosta-white tumor site containing radiographic marker F5 - Closest black inked posterior margin to lower outer quadrant tumor site F6-F11 -White fibrous tissue medial to 3:00 tumor site F12-F13 -White fibrous retroareolar tissue F14 - Lateral aspect perpendicular F15 - Medial aspect perpendicular G. Received in formalin labelled right breast anterior 12:00 tissue Is a portion of right breast anterior 12:00 tissue with purple ink indicating new margin and measuring 3.3 x 1.8 x 1 cm. TS-3 H. Received in formalin labelled left breast 3:00 posterior margin is a 1.5 x 1.4 x 0.6 cm portion of yellow fatty tissue. The specimen is inked on one side indicating the side of the new margin, which is then subsequently inked in black. Sectioning shows yellow lobulated, fatty cut surfaces with no grossly identifiable residual tumor. TS-1 I. Received in formalin labelled right mastectomy skin margin Is a unoriented wide strip of skin measuring 21 x 1 and excised to a depth of 2.5 cm. Skin margin is inked black. RS-2 Devante Bishop, Pathologists' Case Manager (ASCP) Performed by CLAUDIO SETH MD:VERIFY; Authored Date: [facility] Final Surgical Pathology Report Event Display: SP Signature Pathology Report verified by [facility] CLAUDIO MONSALVE Sign out Date: 03/25/2025 15:03 Performing Lab: [facility], [address] [place] [address] Pathology Dept CLAUDIO MONSALVE MD:VERIFY; Authored Date: [facility] Final Surgical Pathology Report Event Display: SP Intraop Cons AFS: NEGATIVE. BFS: NEGATIVE. CFS: NEGATIVE. DFS: NEGATIVE. Performed by Verónica Loja DANIEL MD:VERIFY; Authored Date: [facility] Final Surgical Pathology Report Event Display: SP Dx A. RIGHT BREAST SENTINEL LYMPH NODE #1: - NEGATIVE B. RIGHT BREAST SENTINEL LYMPH NODE #2: - NEGATIVE C. LEFT BREAST SENTINEL LYMPH NODE #1: - NEGATIVE D. LEFT BREAST SENTINEL LYMPH NODE #2: - NEGATIVE E. 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 F. 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 MARGINS ARE FREE. G. RIGHT BREAST ANTERIOR 12:00 TISSUE: - NEGATIVE H. LEFT BREAST 3:00 POSTERIOR MARGIN: - NEGATIVE I. 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 GLANDULAR (ACINAR) / TUBULAR DIFFERENTIATION: Score 2 NUCLEAR PLEOMORPHISM: Score 2 MITOTIC RATE: Score 2 OVERALL GRADE: Grade 2 (scores of 6 or 7) TUMOR SIZE: GREATEST DIMENSION OF LARGEST INVASIVE FOCUS (MILLIMETERS) - 18 mm DUCTAL CARCINOMA IN SITU (DCIS): PRESENT Tumor Extent TUMOR EXTENT: Not applicable LYMPHATIC AND / OR VASCULAR INVASION: Not identified TREATMENT EFFECT IN THE BREAST: No known presurgical therapy TREATMENT EFFECT IN THE LYMPH NODES: Not applicable MARGINS MARGIN STATUS FOR INVASIVE CARCINOMA: All margins negative for invasive carcinoma DISTANCE FROM INVASIVE CARCINOMA TO CLOSEST MARGIN: GREATER THAN - 10 mm MARGIN STATUS FOR DCIS: All margins negative for DCIS DISTANCE FROM DCIS TO CLOSEST MARGIN: GREATER THAN - 10 mm CLOSEST MARGIN(S) TO DCIS: Not applicable REGIONAL LYMPH NODES REGIONAL LYMPH NODE STATUS: All regional lymph nodes negative for tumor TOTAL NUMBER OF LYMPH NODES EXAMINED (SENTINEL AND NON-SENTINEL): 4 NUMBER OF SENTINEL NODES EXAMINED: 4 DISTANT METASTASIS DISTANT SITE(S) INVOLVED: Not applicable pTNM CLASSIFICATION (AJCC 8th Edition) Reporting of pT, pN, and (when applicable) pM categories is based on information available to the pathologist at the time the report is issued. As per the AJCC (Chapter 1, 8th Ed.) it is the managing physician's responsibility to establish the final pathologic stage based upon all pertinent information, including but potentially not limited to this pathology report. MODIFIED CLASSIFICATION: Not applicable PT CATEGORY: pT1c T SUFFIX: (m) PN CATEGORY: pN0 N SUFFIX: (sn) PM CATEGORY: Not applicable - pM cannot be determined from the submitted specimen(s) MICROBIOLOGY TECHNOLOGIST TUMOR BLOCK(S): F4 Breast Biomarker Reporting Template TEST(S) PERFORMED: ESTROGEN RECEPTOR (ER) STATUS: Positive (greater than 10% of cells demonstrate nuclear positivity) PERCENTAGE OF CELLS WITH NUCLEAR POSITIVITY: 81-90% AVERAGE INTENSITY OF STAINING: Moderate PROGESTERONE RECEPTOR (PGR) STATUS: Positive PERCENTAGE OF CELLS WITH NUCLEAR POSITIVITY: 21-30% AVERAGE INTENSITY OF STAINING: Weak HER2 BY IMMUNOHISTOCHEMISTRY: Equivocal (Score 2+) COLD ISCHEMIA AND FIXATION TIMES: Meet requirements specified in latest version of the ASCO / CAP Guidelines, unless otherwise specified in the gross description. COMMENT(S): Test types for ER, CT and Her2: All FDA cleared, Vendor: [employer]. Primary antibody clones: ER: SP1, CT:1E2, Her2:4B5; Detection system: BioNova If specimens were decalcified, loss of immunoreactivity may occur; negative results should be interpreted with caution. Isolated CT positivity (in the absence of ER staining) at low levels is not a reproducible result, could be an artifact, and may not be clinically significant. Invasive carcinomas with 1 to 10% of cells staining for ER (not PgR) are reported as Low Positive and the following comment is applicable: There are limited data on the overall benefit of endocrine therapies for patients with low level (1-10%) ER expression but they currently suggest possible benefit, so patients are considered eligible for endocrine treatment. There are data that suggest invasive cancers with these results are heterogeneous in both behavior and biology and often have gene expression profiles more similar to ER negative cancers. MICROBIOLOGY TECHNOLOGIST TUMOR BLOCK(S): F4 CLAUDIO MONSALVE MD:VERIFY; Authored Date: [id number] [facility] Final Surgical Pathology Report Event Display: SP Micro The microscopic examination is performed, except in the case of Gross Only. CLAUDIO MONSALVE MD:VERIFY; Authored Date: [id number] [facility] Supplemental Reporton 2024 Supplemental Report . Pathology Reports Accession: Collected Date/Time: Received Date/Time: Pathologist: [id number] 03/22/2025 16:38 EDT 03/23/2025 07:13 EDT CLAUDIO MONSALVE MD Supplemental Report SUPPLEMENTAL: Part E DCIS with microinvasion microinvasion is greater than 5 mm from the superior aspect, DCIS approaches to within 3 mm of the superior aspect Verified by Diagnostic interpretation performed at [facility] CLAUDIO MONSALVE Sign out Date: 03/25/2025 16:32 Performing Lab: [facility], [address] [place] [address] Pathology Dept Final Surgical Pathology Report DIAGNOSIS: A. RIGHT BREAST SENTINEL LYMPH NODE #1: - NEGATIVE B. RIGHT BREAST SENTINEL LYMPH NODE #2: - NEGATIVE C. LEFT BREAST SENTINEL LYMPH NODE #1: - NEGATIVE D. LEFT BREAST SENTINEL LYMPH NODE #2: - NEGATIVE E. 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 F. 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 MARGINS ARE FREE. G. RIGHT BREAST ANTERIOR 12:00 TISSUE: - NEGATIVE H. LEFT BREAST 3:00 POSTERIOR MARGIN: - NEGATIVE I. RIGHT MASTECTOMY SKIN MARGIN: - NEGATIVE INVASIVE CARCINOMA OF THE BREAST: Resection SPECIMEN PROCEDURE: Total mastectomy SPECIMEN LATERALITY: Left TUMOR HISTOLOGIC TYPE: Mucinous carcinoma HISTOLOGIC TYPE COMMENT: 2 components -grade 1 mucinous adenocarcinoma and a grade 2 ductal carcinoma of no special type GLANDULAR (ACINAR) / TUBULAR DIFFERENTIATION: Score 2 NUCLEAR PLEOMORPHISM: Score 2 MITOTIC RATE: Score 2 OVERALL GRADE: Grade 2 (scores of 6 or 7) Pathology Reports Accession: Collected Date/Time: Received Date/Time: Pathologist: [id number] 03/22/2025 16:38 EDT 03/23/2025 07:13 EDT CLAUDIO MONSALVE MD DIAGNOSIS: TUMOR SIZE: GREATEST DIMENSION OF LARGEST INVASIVE FOCUS (MILLIMETERS) - 18 mm DUCTAL CARCINOMA IN SITU (DCIS): PRESENT Tumor Extent TUMOR EXTENT: Not applicable LYMPHATIC AND / OR VASCULAR INVASION: Not identified TREATMENT EFFECT IN THE BREAST: No known presurgical therapy TREATMENT EFFECT IN THE LYMPH NODES: Not applicable MARGINS MARGIN STATUS FOR INVASIVE CARCINOMA: All margins negative for invasive carcinoma DISTANCE FROM INVASIVE CARCINOMA TO CLOSEST MARGIN: GREATER THAN - 10 mm MARGIN STATUS FOR DCIS: All margins negative for DCIS DISTANCE FROM DCIS TO CLOSEST MARGIN: GREATER THAN - 10 mm CLOSEST MARGIN(S) TO DCIS: Not applicable REGIONAL LYMPH NODES REGIONAL LYMPH NODE STATUS: All regional lymph nodes negative for tumor TOTAL NUMBER OF LYMPH NODES EXAMINED (SENTINEL AND NON-SENTINEL): 4 NUMBER OF SENTINEL NODES EXAMINED: 4 DISTANT METASTASIS DISTANT SITE(S) INVOLVED: Not applicable pTNM CLASSIFICATION (AJCC 8th Edition) Reporting of pT, pN, and (when applicable) pM categories is based on information available to the pathologist at the time the report is issued. As per the AJCC (Chapter 1, 8th Ed.) it is the managing physician's responsibility to establish the final pathologic stage based upon all pertinent information, including but potentially not limited to this pathology report. MODIFIED CLASSIFICATION: Not applicable PT CATEGORY: pT1c T SUFFIX: (m) PN CATEGORY: pN0 N SUFFIX: (sn) PM CATEGORY: Not applicable - pM cannot be determined from the submitted specimen(s) MICROBIOLOGY TECHNOLOGIST TUMOR BLOCK(S): F4 Breast Biomarker Reporting Template TEST(S) PERFORMED: ESTROGEN RECEPTOR (ER) STATUS: Positive (greater than 10% of cells demonstrate nuclear positivity) PERCENTAGE OF CELLS WITH NUCLEAR POSITIVITY: 81-90% AVERAGE INTENSITY OF STAINING: Moderate PROGESTERONE RECEPTOR (PGR) STATUS: Positive PERCENTAGE OF CELLS WITH NUCLEAR POSITIVITY: 21-30% AVERAGE INTENSITY OF STAINING: Weak HER2 BY IMMUNOHISTOCHEMISTRY: Equivocal (Score 2+) COLD ISCHEMIA AND FIXATION TIMES: Meet requirements specified in latest version of the ASCO / CAP Guidelines, unless otherwise specified in the gross description. COMMENT(S): Test types for ER, CT and Her2: All FDA cleared, Vendor: [employer]. Primary antibody clones: ER: SP1, CT:1E2, Her2:4B5; Detection system: Ultraview If specimens were decalcified, loss of immunoreactivity may occur; negative results should be interpreted with caution. Isolated CT positivity (in the absence of ER staining) at low levels is not a reproducible result, could be an artifact, and may not be clinically significant. Invasive carcinomas with 1 to 10% of cells staining for ER (not PgR) are reported as Low Positive and the following comment is applicable: There are limited data on the overall benefit of endocrine therapies for patients with low level (1-10%) ER expression but they currently sugg (more content not included)... Normal [facility] Supplemental Report Event Display: ADD Signature Diagnostic interpretation performed at [facility] CLAUDIO MONSALVE Sign out Date: 03/25/2025 16:32 Performing Lab: [facility], [address] [place] [id number] [place] [address] Pathology Dept CLAUDIO MONSALVE MD:VERIFY; Authored Date: [facility] Supplemental Report Event Display: ADD Supplemental Part E DCIS with microinvasion microinvasion is greater than 5 mm from the superior aspect, DCIS approaches to within 3 mm of the superior aspect CLAUDIO MONSALVE MD:VERIFY; Authored Date: [facility] .Auto Diffon 03-23-2025 Basophil, Absolute 0.0 10 3/mcL Normal 0.0-0.3 [facility] Comment on above: Performed By: #### A MATHEUS, BMP, GFR, CBC, ADIFF #### [address] [address] Basophils/100 WBC (Bld) 0.1 % Normal 0.0-2.5 [facility] Comment on above: Performed By: #### A MATHEUS, BMP, GFR, CBC, ADIFF #### [address] [address] Eosinophil, Absolute 0.0 10 3/mcL Normal 0.0-0.7 [facility] Comment on above: Performed By: #### A MATHEUS, BMP, GFR, CBC, ADIFF #### [address] [address] Eosinophils/100 WBC (Bld) 0.0 % Normal 0.0-6.0 [facility] Comment on above: Performed By: #### A MATHEUS, BMP, GFR, CBC, ADIFF #### [address] [address] Lymphocyte, Absolute 1.0 10 3/mcL Normal 0.9-4.3 [facility] Comment on above: Performed By: #### A MATHEUS, BMP, GFR, CBC, ADIFF #### [address] [address] Lymphocytes/100 WBC (Bld) 5.8 % Low 20.0-40.0 [facility] Comment on above: Performed By: #### A MATHEUS, BMP, GFR, CBC, ADIFF #### [address] [address] Monocyte, Absolute 1.4 10 3/mcL Normal 0.1-1.4 [facility] Comment on above: Performed By: #### A MATHEUS, BMP, GFR, CBC, ADIFF #### [address] [address] Monocytes/100 WBC (Bld) 8.7 % Normal 2.0-13.0 [facility] Comment on above: Performed By: #### A MATHEUS, BMP, GFR, CBC, ADIFF #### [address] [address] Neutrophils/100 WBC (Bld) 85.4 % High 50.0-75.0 [facility] Comment on above: Performed By: #### A MATHEUS, BMP, GFR, CBC, ADIFF #### [address] [address] .GFRon 03-23-2025 Estimated Glomerular Filtration Rate 100 ml/min/1.73sqm [facility] MAIN Comment on above: Result Comment: Stages of Chronic Kidney Disease (CKD) Stage Description eGFR(ml/min/1.73 sq.m.) CKD 1 Normal kidney function or >=90 normal kindney function with possible kidney damage (ex. Proteinuria) CKD 2 Kidney damage with mild loss 60-89 of kidney function CKD 3a Mild to moderate loss of kidney 45-59 function CKD 3b Moderate to severe loss of 30-44 of kindey function CKD 4 Severe loss of kidney function 15-29 CKD 5 Kidney failure <15 Note: (go live 2024) the eGFR calculation was updated to the 2020 CKD-EPI creatinine equation without a race factor to calculate the eGFR results. Performed By: #### A MATHEUS, BMP, GFR, CBC, ADIFF #### [address] [address] .NEUABSon 03-23-2025 Neutrophil, Absolute 14.3 10 3/mcL High 2.3-8.1 [facility] Comment on above: Performed By: #### A MATHEUS, BMP, GFR, CBC, ADIFF #### [address] [address] BMPon 03-23-2025 BUN/Creatinine Ratio 21.1 ratio Normal 10.0-22.0 [facility] Comment on above: Performed By: #### A MATHEUS, BMP, GFR, CBC, ADIFF #### [address] [address] Calcium [Mass/Vol] 8.8 mg/dL Normal 8.7-10.4 [facility] Comment on above: Performed By: #### A MATHEUS, BMP, GFR, CBC, ADIFF #### [place] [id number] Chloride [Moles/Vol] 106 mmol/L Normal 98-110 [facility] Comment on above: Performed By: #### A MATHEUS, BMP, GFR, CBC, ADIFF #### [place] [id number] CO2 [Moles/Vol] 28 mmol/L Normal 22-32 [facility] Comment on above: Performed By: #### A MATHEUS, BMP, GFR, CBC, ADIFF #### [place] [id number] Creatinine [Mass/Vol] 0.57 mg/dL Normal 0.50-1.20 [facility] Comment on above: Result Comment: Test ing performed on Gigzolo analyzer using enzymatic creatinine methodology. Performed By: #### A MATHEUS, BMP, GFR, CBC, ADIFF #### [place] [id number] Electrolyte Balance 7.0 mEq/L Normal 4.0-15.0 [facility] Comment on above: Performed By: #### A MATHEUS, BMP, GFR, CBC, ADIFF #### [place] [id number] Glucose [Mass/Vol] 121 mg/dL High 82-115 [facility] Comment on above: Performed By: #### A MATHEUS, BMP, GFR, CBC, ADIFF #### [facility] [address] [place], [place] [address] Potassium [Moles/Vol] 4.0 mmol/L Normal 3.5-5.0 [facility] Comment on above: Performed By: #### A MATHEUS, BMP, GFR, CBC, ADIFF #### [address] [address] Sodium [Moles/Vol] 141 mmol/L Normal 136-145 [facility] Comment on above: Performed By: #### A MATHEUS, BMP, GFR, CBC, ADIFF #### [address] [address] Urea nitrogen [Mass/Vol] 12.0 mg/dL Normal 8.0-22.0 [facility] Comment on above: Performed By: #### A MATHEUS, BMP, GFR, CBC, ADIFF #### [address] [address] CBCon 03-23-2025 Erythrocyte distribution width (RBC) [Ratio] 13.3 % Normal 11.5-15.5 [facility] Comment on above: Performed By: #### A MATHEUS, BMP, GFR, CBC, ADIFF #### [address] [address] Hematocrit (Bld) [Volume fraction] 40.2 % Normal 34.0-46.0 [facility] Comment on above: Performed By: #### A MATHEUS, BMP, GFR, CBC, ADIFF #### [address] [address] Hgb 13.5 G/dL Normal 12.0-16.0 [facility] Comment on above: Performed By: #### A MATHEUS, BMP, GFR, CBC, ADIFF #### [address] [address] MCH (RBC) [Entitic mass] 30.0 pg Normal 27.0-33.0 [facility] Comment on above: Performed By: #### A MATHEUS, BMP, GFR, CBC, ADIFF #### [address] [address] MCHC 33.6 G/dL Normal 32.0-36.0 [facility] Comment on above: Performed By: #### A MATHEUS, BMP, GFR, CBC, ADIFF #### [address] [address] MCV (RBC) [Entitic vol] 89.1 fL Normal 80.0-99.0 [facility] Comment on above: Performed By: #### A MATHEUS, BMP, GFR, CBC, ADIFF #### [address] [address] Platelet 170 10 3/mcL Normal 150-450 [facility] Comment on above: Performed By: #### A MATHEUS, BMP, GFR, CBC, ADIFF #### [address] [address] Platelet mean volume (Bld) [Entitic vol] 9.7 fL Normal 6.6-10.5 [facility] Comment on above: Performed By: #### A MATHEUS, BMP, GFR, CBC, ADIFF #### [place] [address] RBC 4.51 10 6/mcL Normal 4.10-5.30 [facility] Comment on above: Performed By: #### A MATHEUS, BMP, GFR, CBC, ADIFF #### [address] [address] WBC 16.7 10 3/mcL High 4.5-10.8 [facility] Comment on above: Performed By: #### A MATHEUS, BMP, GFR, CBC, ADIFF #### [place] [address] LABORATORYOrdered By: SYSTEM SYSTEM on 03-23-2025 Basophils (Bld) [#/Vol] 0.0 103/mcL Normal 0.0 - 0.3 10^3/mcL AH Workflow SS Basophils/100 WBC (Bld) 0.1 % Normal 0.0 - 2.5 % AH Workflow SS Calcium [Mass/Vol] 8.8 mg/dL Normal 8.7 - 10. 4 mg/dL AH ADM SS Chloride [Moles/Vol] 106 mmol/L Normal 98 - 11 0 mEq/L AH ADM SS CO2 [Moles/Vol] 28 mmol/L Normal 22 - 32 mEq/L AH ADM SS Creatinine [Mass/Vol] 0.57 mg/dL Normal 0.50 - 1.20 mg/dL ADM SS Comment on above: Interpretive Data: T esting performed on [employer] CH analyzer using enzymatic creatinine methodology. Electrolyte Balance 7.0 mEq/L Normal 4.0 - 15 .0 mEq/L ADM SS Eosinophils (Bld) [#/Vol] 0.0 103/mcL Normal 0.0 - 0.7 10^3/mcL Workflow SS Eosinophils/100 WBC (Bld) 0.0 % Normal 0.0 - 6.0 % Workflow SS Erythrocyte distribution width (RBC) [Ratio] 13.3 % Normal 11.5 - 15.5 % Workflow SS Estimated Glomerular Filtration Rate 100 ml/min/1.73sqm Invalid Interpretation Code Chemistry S Comment on above: Interpretive Data: Stages of Chronic Kidney Disease (CKD) Stage Description eGFR(ml/min/1.73 sq.m.) CKD 1 Normal kidney function or >=90 normal kindney function with possible kidney damage (ex. Proteinuria) CKD 2 Kidney damage with mild loss 60-89 of kidney function CKD 3a Mild to moderate loss of kidney 45-59 function CKD 3b Moderate to severe loss of 30-44 of kindey function CKD 4 Severe loss of kidney function 15-29 CKD 5 Kidney failure <15 Note: (go live 2024) the eGFR calculation was updated to the 2020 CKD-EPI creatinine equation without a race factor to calculate the eGFR results. Glucose [Mass/Vol] 121 mg/dL High 82 - 115 mg/dL ADM SS Hematocrit (Bld) [Volume fraction] 40.2 % Normal 34.0 - 46.0 % Workflow SS Hemoglobin (Bld) [Mass/Vol] 13.5 G/dL Normal 12.0 - 16.0 G/dL Workflow SS Lymphocytes (Bld) [#/Vol] 1.0 103/mcL Normal 0.9 - 4.3 10^3/mcL Workflow SS Lymphocytes/100 WBC (Bld) 5.8 % Low 20.0 - 40.0 % Workflow SS MCH (RBC) [Entitic mass] 30.0 pg Normal 27.0 - 33.0 pg Workflow SS MCHC 33.6 G/dL Normal 32.0 - 36.0 G/dL Workflow SS MCV (RBC) [Entitic vol] 89.1 fL Normal 80.0 - 99.0 fL AH Workflow SS Monocytes (Bld) [#/Vol] 1.4 103/mcL Normal 0.1 - 1.4 10^3/mcL AH Workflow SS Monocytes/100 WBC (Bld) 8.7 % Normal 2.0 - 13.0 % AH Workflow SS Neutrophils (Bld) [#/Vol] 14.3 103/mcL High 2.3 - 8.1 10^3/mcL AH Workflow SS Neutrophils/100 WBC (Bld) 85.4 % High 50.0 - 75.0 % AH Workflow SS Platelet mean volume (Bld) [Entitic vol] 9.7 fL Normal 6.6 - 10.5 fL AH Workflow SS Platelets (Bld) [#/Vol] 170 103/mcL Normal 150 - 450 10^3/mcL AH Workflow SS Potassium [Moles/Vol] 4.0 mmol/L Normal 3.5 - 5.0 mEq/L ADM SS RBC (Bld) [#/Vol] 4.51 106/mcL Normal 4.10 - 5.30 10^6/mcL AH Workflow SS Sodium [Moles/Vol] 141 mmol/L Normal 136 - 145 mEq/L ADM SS Urea nitrogen [Mass/Vol] 12.0 mg/dL Normal 8.0 - 22.0 mg/dL ADM SS Urea nitrogen/Creatinine [Mass ratio] 21.1 ratio Normal 10.0 - 22.0 ratio AH ADM SS WBC (Bld) [#/Vol] 16.7 103/mcL High 4.5 - 10.8 10^3/mcL Workflow SS .Auto Diffon 03-22-2025 Basophil, Absolute 0.0 10 3/mcL Normal 0.0-0.3 [facility] Comment on above: Performed By: #### A MATHEUS, BMP, GFR, CBC, ADIFF #### [address] [address] Basophils/100 WBC (Bld) 0.2 % Normal 0.0-2.5 [facility] Comment on above: Performed By: #### A MATHEUS, BMP, GFR, CBC, ADIFF #### [place] [id number] [address] [place] [address] Eosinophil, Absolute 0.0 10 3/mcL Normal 0.0-0.7 [facility] Comment on above: Performed By: #### A MATHEUS, BMP, GFR, CBC, ADIFF #### [address] [address] Eosinophils/100 WBC (Bld) 0.1 % Normal 0.0-6.0 [facility] Comment on above: Performed By: #### A MATHEUS, BMP, GFR, CBC, ADIFF #### [address] [address] Lymphocyte, Absolute 0.7 10 3/mcL Low 0.9-4.3 [facility] Comment on above: Performed By: #### A MATHEUS, BMP, GFR, CBC, ADIFF #### [address] [address] Lymphocytes/100 WBC (Bld) 4.1 % Low 20.0-40.0 [facility] Comment on above: Performed By: #### A MATHEUS, BMP, GFR, CBC, ADIFF #### [address] [address] Monocyte, Absolute 0.9 10 3/mcL Normal 0.1-1.4 [facility] Comment on above: Performed By: #### A MATHEUS, BMP, GFR, CBC, ADIFF #### [address] [address] Monocytes/100 WBC (Bld) 5.7 % Normal 2.0-13.0 [facility] Comment on above: Performed By: #### A MATHEUS, BMP, GFR, CBC, ADIFF #### [address] [address] Neutrophils/100 WBC (Bld) 89.9 % High 50.0-75.0 [facility] Comment on above: Performed By: #### A MATHEUS, BMP, GFR, CBC, ADIFF #### [address] [address] .GFRon 03-22-2025 Estimated Glomerular Filtration Rate 98 ml/min/1.73sqm Normal [facility] Comment on above: Result Comment: Stages of Chronic Kidney Disease (CKD) Stage Description eGFR(ml/min/1.73 sq.m.) CKD 1 Normal kidney function or >=90 normal kindney function with possible kidney damage (ex. Proteinuria) CKD 2 Kidney damage with mild loss 60-89 of kidney function CKD 3a Mild to moderate loss of kidney 45-59 function CKD 3b Moderate to severe loss of 30-44 of kindey function CKD 4 Severe loss of kidney function 15-29 CKD 5 Kidney failure <15 Note: (go live 2024) the eGFR calculation was updated to the 2020 CKD-EPI creatinine equation without a race factor to calculate the eGFR results. Performed By: #### A MATHEUS, BMP, GFR, CBC, ADIFF #### [address] [address] .NEUABSon 03-22-2025 Neutrophil, Absolute 14.5 10 3/mcL High 2.3-8.1 [facility] Comment on above: Performed By: #### A MATHEUS, BMP, GFR, CBC, ADIFF #### [address] [address] [facility] BUN/Creatinine Ratio 25.8 ratio High 10.0-22.0 [facility] Comment on above: Performed By: #### A MATHEUS, BMP, GFR, CBC, ADIFF #### [address] [address] Calcium [Mass/Vol] 9.1 mg/dL Normal 8.7-10.4 [facility] Comment on above: Performed By: #### A MATHEUS, BMP, GFR, CBC, ADIFF #### [address] [address] Chloride [Moles/Vol] 106 mmol/L Normal 98-110 [facility] Comment on above: Performed By: #### A MATHEUS, BMP, GFR, CBC, ADIFF #### [address] [address] CO2 [Moles/Vol] 22 mmol/L Normal 22-32 [facility] Comment on above: Performed By: #### A MATHEUS, BMP, GFR, CBC, ADIFF #### [address] [address] Creatinine [Mass/Vol] 0.62 mg/dL Normal 0.50-1.20 [facility] Comment on above: Result Comment: Test ing performed on Gig[employer] analyzer using enzymatic creatinine methodology. Performed By: #### A MATHEUS, BMP, GFR, CBC, ADIFF #### [address] [address] Electrolyte Balance 12.0 mEq/L Normal 4.0-15.0 [facility] Comment on above: Performed By: #### A MATHEUS, BMP, GFR, CBC, ADIFF #### [address] [address] Glucose [Mass/Vol] 139 mg/dL High 82-115 [facility] Comment on above: Performed By: #### A MATHEUS, BMP, GFR, CBC, ADIFF #### [address] [address] Potassium [Moles/Vol] 4.2 mmol/L Normal 3.5-5.0 [facility] Comment on above: Performed By: #### A MATHEUS, BMP, GFR, CBC, ADIFF #### [address] [address] Sodium [Moles/Vol] 140 mmol/L Normal 136-145 [facility] Comment on above: Performed By: #### A MATHEUS, BMP, GFR, CBC, ADIFF #### [address] [address] Urea nitrogen [Mass/Vol] 16.0 mg/dL Normal 8.0-22.0 [facility] Comment on above: Performed By: #### A MATHEUS, BMP, GFR, CBC, ADIFF #### [address] [address] CBCon 03-22-2025 Erythrocyte distribution width (RBC) [Ratio] 13.6 % Normal 11.5-15.5 [facility] Comment on above: Performed By: #### A MATHEUS, BMP, GFR, CBC, ADIFF #### [address] [address] Hematocrit (Bld) [Volume fraction] 46.3 % High 34.0-46.0 [facility] Comment on above: Performed By: #### A MATHEUS, BMP, GFR, CBC, ADIFF #### [address] [address] Hgb 15.3 G/dL Normal 12.0-16.0 [facility] Comment on above: Performed By: #### A MATHEUS, BMP, GFR, CBC, ADIFF #### [address] [address] MCH (RBC) [Entitic mass] 29.6 pg Normal 27.0-33.0 [facility] Comment on above: Performed By: #### A MATHEUS, BMP, GFR, CBC, ADIFF #### [place] [address] MCHC 33.1 G/dL Normal 32.0-36.0 [facility] Comment on above: Performed By: #### A MATHEUS, BMP, GFR, CBC, ADIFF #### [place] [address] MCV (RBC) [Entitic vol] 89.7 fL Normal 80.0-99.0 [facility] Comment on above: Performed By: #### A MATHEUS, BMP, GFR, CBC, ADIFF #### [place] [address] Platelet 150 10 3/mcL Normal 150-450 [facility] Comment on above: Performed By: #### A MATHEUS, BMP, GFR, CBC, ADIFF #### [place] [address] Platelet mean volume (Bld) [Entitic vol] 10.2 fL Normal 6.6-10.5 [facility] Comment on above: Performed By: #### A MATHEUS, BMP, GFR, CBC, ADIFF #### [place] [address] RBC 5.17 10 6/mcL Normal 4.10-5.30 [facility] Comment on above: Performed By: #### A MATHEUS, BMP, GFR, CBC, ADIFF #### [place] [address] WBC 16.1 10 3/mcL High 4.5-10.8 [facility] Comment on above: Performed By: #### A MATHEUS, BMP, GFR, CBC, ADIFF #### [place] [address] LABORATORYOrdered By: SYSTEM SYSTEM on 03-22-2025 Basophils (Bld) [#/Vol] 0.0 103/mcL Normal 0.0 - 0.3 10^3/mcL AH Workflow SS Basophils/100 WBC (Bld) 0.2 % Normal 0.0 - 2.5 % AH Workflow SS Calcium [Mass/Vol] 9.1 mg/dL Normal 8.7 - 10. 4 mg/dL AH ADM SS Chloride [Moles/Vol] 106 mmol/L Normal 98 - 11 0 mEq/L AH ADM SS CO2 [Moles/Vol] 22 mmol/L Normal 22 - 32 mEq/L AH ADM SS Creatinine [Mass/Vol] 0.62 mg/dL Normal 0.50 - 1.20 mg/dL AH ADM SS Comment on above: Interpretive Data: T esting performed on Gig[employer] analyzer using enzymatic creatinine methodology. Electrolyte Balance 12.0 mEq/L Normal 4.0 - 15 .0 mEq/L ADM SS Eosinophils (Bld) [#/Vol] 0.0 103/mcL Normal 0.0 - 0.7 10^3/mcL AH Workflow SS Eosinophils/100 WBC (Bld) 0.1 % Normal 0.0 - 6.0 % AH Workflow SS Erythrocyte distribution width (RBC) [Ratio] 13.6 % Normal 11.5 - 15.5 % AH Workflow SS Estimated Glomerular Filtration Rate 98 ml/min/1.73sqm Invalid Interpretation Code Chemistry S Comment on above: Interpretive Data: Stages of Chronic Kidney Disease (CKD) Stage Description eGFR(ml/min/1.73 sq.m.) CKD 1 Normal kidney function or >=90 normal kindney function with possible kidney damage (ex. Proteinuria) CKD 2 Kidney damage with mild loss 60-89 of kidney function CKD 3a Mild to moderate loss of kidney 45-59 function CKD 3b Moderate to severe loss of 30-44 of kindey function CKD 4 Severe loss of kidney function 15-29 CKD 5 Kidney failure <15 Note: (go live 2024) the eGFR calculation was updated to the 2020 CKD-EPI creatinine equation without a race factor to calculate the eGFR results. Glucose [Mass/Vol] 139 mg/dL High 82 - 115 mg/dL AH ADM SS Hematocrit (Bld) [Volume fraction] 46.3 % High 34.0 - 46.0 % AH Workflow SS Hemoglobin (Bld) [Mass/Vol] 15.3 G/dL Normal 12.0 - 16.0 G/dL AH Workflow SS Lymphocytes (Bld) [#/Vol] 0.7 103/mcL Low 0.9 - 4.3 10^3/mcL AH Workflow SS Lymphocytes/100 WBC (Bld) 4.1 % Low 20.0 - 40.0 % AH Workflow SS MCH (RBC) [Entitic mass] 29.6 pg Normal 27.0 - 33.0 pg AH Workflow SS MCHC 33.1 G/dL Normal 32.0 - 36.0 G/dL AH Workflow SS MCV (RBC) [Entitic vol] 89.7 fL Normal 80.0 - 99.0 fL AH Workflow SS Monocytes (Bld) [#/Vol] 0.9 103/mcL Normal 0.1 - 1.4 10^3/mcL AH Workflow SS Monocytes/100 WBC (Bld) 5.7 % Normal 2.0 - 13.0 % AH Workflow SS Neutrophils (Bld) [#/Vol] 14.5 103/mcL High 2.3 - 8.1 10^3/mcL AH Workflow SS Neutrophils/100 WBC (Bld) 89.9 % High 50.0 - 75.0 % AH Workflow SS Platelet mean volume (Bld) [Entitic vol] 10.2 fL Normal 6.6 - 10.5 fL AH Workflow SS Platelets (Bld) [#/Vol] 150 103/mcL Normal 150 - 450 10^3/mcL AH Workflow SS Potassium [Moles/Vol] 4.2 mmol/L Normal 3.5 - 5.0 mEq/L AH ADM SS RBC (Bld) [#/Vol] 5.17 106/mcL Normal 4.10 - 5.30 10^6/mcL AH Workflow SS Sodium [Moles/Vol] 140 mmol/L Normal 136 - 145 mEq/L ADM SS Urea nitrogen [Mass/Vol] 16.0 mg/dL Normal 8.0 - 22.0 mg/dL ADM SS Urea nitrogen/Creatinine [Mass ratio] 25.8 ratio High 10.0 - 22.0 ratio ADM SS WBC (Bld) [#/Vol] 16.1 103/mcL High 4.5 - 10.8 10^3/mcL AH Workflow SS LABORATORYOrdered By: Dot Mccormack on 03-22-2025 Glucose [Mass/Vol] 98 mg/dL Normal 82 - 115 mg/dL [facility] MA BIOPSY ORon 03-22-2025 MA BIOPSY OR ORIGINAL FROM: [place] [address] PROCEDURE FOR: AMAYA GARCIA [address] [place] [address] Home: PID#: [id number] Exam#: [id number] : 1955 Age: 69 TO: JOSH JEFFERS D.O. [address] [place] [address] EXAMINATION: SPECIMEN RADIOGRAPH 03/22/2025 1:44 pm COMPARISON: 07/29/2024 HISTORY: Surgical specimen radiograph. FINDINGS: A surgical specimen was imaged using uni-planar radiograph specimen imaging for the area of concern located in the left breast. This was described on prior exams. The specimen includes clip and the calcifications. IMPRESSION: Specimen radiograph as above. Please see surgical notes and pathology results for more detail. Findings were called to the operating room at the time of acquisition. BIRADS: RECALL: no message RECALL TYPE: unspecified LETTER SENT: No Letter Interpreted by: Joana Proctor MD Preliminary Report By: Joana Proctor MD Electronically signed By Joana Proctor MD Dictated Date: 03/22/2025 3:44:44 PM Prelim Date: 03/22/2025 3:45:40 PM Sign Date: 03/22/2025 3:45:40 PM Ordering Provider: JOSH JEFFERS Mental Health Nurse Practitioner: SANDEEP Wade [facility] BIOPSY OR ORIGINAL FROM: [address] [address] PROCEDURE FOR: AMAYA GARCIA [address] [place] [address] Home: PID#: [id number] Exam#: [id number] : 1955 Age: 69 TO: JOSH JEFFERS D[address] [place] [address] EXAMINATION: SPECIMEN RADIOGRAPH 03/22/2025 6:19 am COMPARISON: 01/06/2025, 07/22/2024 HISTORY: Surgical specimen radiograph. FINDINGS: A surgical specimen was imaged using uni-planar radiograph specimen imaging for the area of concern located in the right breast. The specimen includes a biopsy marking clip and calcifications. IMPRESSION: Specimen radiograph as above. Please see surgical notes and pathology results for more detail. Findings were called to the operating room at the time of acquisition. BIRADS: RECALL: no message RECALL TYPE: unspecified LETTER SENT: No Letter Interpreted by: Alek May MD Preliminary Report By: Alek May MD Electronically signed By Alek May MD Dictated Date: 03/22/2025 1:45:56 PM Prelim Date: 03/22/2025 1:47:08 PM Sign Date: 03/22/2025 1:47:08 PM Ordering Provider: JOSH JEFFERS Mental Health Nurse Practitioner: SANDEEP HALE [facility] NM INJECTION SENTINEL NODEon 03-22-2025 NM INJECTION SENTINEL NODE ORIGINAL EXAMINATION: SENTINEL NODE 03/22/2025 8:17 am TECHNIQUE: 587 and 627 microcuries of Tc99m Lymphoseek injection in the leftbreast at 8:05 a.m. by physician engineer first assistant ABEBA VARGHESE was provided to DR. JOSH JEFFERS for sentinel lymph node localization. Patient was then taken to the OR for probe guided lymph node localization. HISTORY: Reason for Exam: Left breast ca IMPRESSION: No images were acquired. Lymph nodes localized with probe in the OR. Interpreted by: Jose Roberto Mack MD Preliminary Report By: Jose Roberto Mack MD Electronically signed By Jose Roberto Mack MD Dictated Date: 03/22/2025 9:30:07 AM Prelim Date: 03/22/2025 9:30:55 AM Sign Date: 03/22/2025 9:30:55 AM Ordering Provider: JOSH JEFFERS [facility] NM INJECTION SENTINEL NODE ORIGINAL EXAMINATION: SENTINEL NODE 03/22/2025 8:16 am TECHNIQUE: 551 and 574 microcuries of Tc99m Lymphoseek injection in the rightbreast at 8:05 a.m. by physician engineer first assistant ABEBA VARGHESE was provided to DR. JOSH JEFFERS for sentinel lymph node localization. Patient was then taken to the OR for probe guided lymph node localization. HISTORY: Reason for Exam: breast cancer IMPRESSION: No images were acquired. Lymph nodes localized with probe in the OR. Interpreted by: Jose Roberto Mack MD Preliminary Report By: Jose Roberto Mack MD Electronically signed By Jose Roberto Mack MD Dictated Date: 03/22/2025 9:29:10 AM Prelim Date: 03/22/2025 9:30:01 AM Sign Date: 03/22/2025 9:30:01 AM Ordering Provider: JOSH JEFFERS [facility] US ANESTHESIA BLOCKon 2024 US ANESTHESIA BLOCK ORIGINAL Images acquired, not reported on this accession number. Normal [facility] US GUIDANCE BREAST IN ORon 0 03-22-2025 US GUIDANCE BREAST IN OR ORIGINAL Images acquired, not reported on this accession number. Normal [facility] .Auto Diffon 03-11-2025 Basophil, Absolute 0.1 10 3/mcL Normal 0.0-0.3 [facility] Comment on above: Performed By: #### A AMTHEUS, BMP, GFR, CBC, ADIFF #### [address] [address] Basophils/100 WBC (Bld) 0.8 % Normal 0.0-2.5 [facility] Comment on above: Performed By: #### A MATHEUS, BMP, GFR, CBC, ADIFF #### [address] [address] Eosinophil, Absolute 0.2 10 3/mcL Normal 0.0-0.7 [facility] Comment on above: Performed By: #### A MATHEUS, BMP, GFR, CBC, ADIFF #### [address] [address] Eosinophils/100 WBC (Bld) 3.4 % Normal 0.0-6.0 [facility] Comment on above: Performed By: #### A MATHEUS, BMP, GFR, CBC, ADIFF #### [address] [address] Lymphocyte, Absolute 1.7 10 3/mcL Normal 0.9-4.3 [facility] Comment on above: Performed By: #### A MATHEUS, BMP, GFR, CBC, ADIFF #### [address] [address] Lymphocytes/100 WBC (Bld) 26.1 % Normal 20.0-40.0 [facility] Comment on above: Performed By: #### A MATHEUS, BMP, GFR, CBC, ADIFF #### [address] [address] Monocyte, Absolute 0.6 10 3/mcL Normal 0.1-1.4 [facility] Comment on above: Performed By: #### A MATHEUS, BMP, GFR, CBC, ADIFF #### [address] [address] Monocytes/100 WBC (Bld) 8.8 % Normal 2.0-13.0 [facility] Comment on above: Performed By: #### A MATHEUS, BMP, GFR, CBC, ADIFF #### [address] [address] Neutrophils/100 WBC (Bld) 60.9 % Normal 50.0-75.0 [facility] Comment on above: Performed By: #### A MATHEUS, BMP, GFR, CBC, ADIFF #### [address] [address] .GFRon 03-11-2025 Estimated Glomerular Filtration Rate 93 ml/min/1.73sqm Normal [facility] Comment on above: Result Comment: Stages of Chronic Kidney Disease (CKD) Stage Description eGFR(ml/min/1.73 sq.m.) CKD 1 Normal kidney function or >=90 normal kindney function with possible kidney damage (ex. Proteinuria) CKD 2 Kidney damage with mild loss 60-89 of kidney function CKD 3a Mild to moderate loss of kidney 45-59 function CKD 3b Moderate to severe loss of 30-44 of kindey function CKD 4 Severe loss of kidney function 15-29 CKD 5 Kidney failure <15 Note: (go live 2024) the eGFR calculation was updated to the 2020 CKD-EPI creatinine equation without a race factor to calculate the eGFR results. Performed By: #### A MATHEUS, BMP, GFR, CBC, ADIFF #### [address] [address] .NEUABSon 03-11-2025 Neutrophil, Absolute 3.9 10 3/mcL Normal 2.3-8.1 [facility] Comment on above: Performed By: #### A MATHEUS, BMP, GFR, CBC, ADIFF #### [address] [address] [facility] BUN/Creatinine Ratio 26.8 ratio High 10.0-22.0 [facility] Comment on above: Performed By: #### A MATHEUS, BMP, GFR, CBC, ADIFF #### [place] [address] Calcium [Mass/Vol] 9.7 mg/dL Normal 8.7-10.4 [facility] Comment on above: Performed By: #### A MATHEUS, BMP, GFR, CBC, ADIFF #### [place] [address] Chloride [Moles/Vol] 104 mmol/L Normal 98-110 [facility] Comment on above: Performed By: #### A MATHEUS, BMP, GFR, CBC, ADIFF #### [place] [address] CO2 [Moles/Vol] 31 mmol/L Normal 22-32 [facility] Comment on above: Performed By: #### A MATHEUS, BMP, GFR, CBC, ADIFF #### [place] [address] Creatinine [Mass/Vol] 0.71 mg/dL Normal 0.50-1.20 [facility] Comment on above: Result Comment: Test ing performed on Gigzolo analyzer using enzymatic creatinine methodology. Performed By: #### A MATHEUS, BMP, GFR, CBC, ADIFF #### [address] [address] Electrolyte Balance 6.0 mEq/L Normal 4.0-15.0 [facility] Comment on above: Performed By: #### A MATHEUS, BMP, GFR, CBC, ADIFF #### [address] [address] Glucose [Mass/Vol] 111 mg/dL Normal 82-115 [facility] Comment on above: Performed By: #### A MATHEUS, BMP, GFR, CBC, ADIFF #### [place] [address] Potassium [Moles/Vol] 4.3 mmol/L Normal 3.5-5.0 [facility] Comment on above: Performed By: #### A MATHEUS, BMP, GFR, CBC, ADIFF #### [place] [address] Sodium [Moles/Vol] 141 mmol/L Normal 136-145 [facility] Comment on above: Performed By: #### A MATHEUS, BMP, GFR, CBC, ADIFF #### [place] [address] Urea nitrogen [Mass/Vol] 19.0 mg/dL Normal 8.0-22.0 [facility] Comment on above: Performed By: #### A MATHEUS, BMP, GFR, CBC, ADIFF #### [place] [address] CBCon 03-11-2025 Erythrocyte distribution width (RBC) [Ratio] 13.9 % Normal 11.5-15.5 [facility] Comment on above: Performed By: #### A MATHEUS, BMP, GFR, CBC, ADIFF #### [place] [address] Hematocrit (Bld) [Volume fraction] 43.4 % Normal 34.0-46.0 [facility] Comment on above: Performed By: #### A MATHEUS, BMP, GFR, CBC, ADIFF #### [place] [id number] Hgb 14.7 G/dL Normal 12.0-16.0 [facility] Comment on above: Performed By: #### A MATHEUS, BMP, GFR, CBC, ADIFF #### [address] [address] MCH (RBC) [Entitic mass] 30.2 pg Normal 27.0-33.0 [facility] Comment on above: Performed By: #### A MATHEUS, BMP, GFR, CBC, ADIFF #### [place] [address] MCHC 34.0 G/dL Normal 32.0-36.0 [facility] Comment on above: Performed By: #### A MATHEUS, BMP, GFR, CBC, ADIFF #### [place] [address] MCV (RBC) [Entitic vol] 89.0 fL Normal 80.0-99.0 [facility] Comment on above: Performed By: #### A MATHEUS, BMP, GFR, CBC, ADIFF #### [place] [address] Platelet 173 10 3/mcL Normal 150-450 [facility] Comment on above: Performed By: #### A MATHEUS, BMP, GFR, CBC, ADIFF #### [place] [address] Platelet mean volume (Bld) [Entitic vol] 9.6 fL Normal 6.6-10.5 [facility] Comment on above: Performed By: #### A MATHEUS, BMP, GFR, CBC, ADIFF #### [place] [address] RBC 4.88 10 6/mcL Normal 4.10-5.30 [facility] Comment on above: Performed By: #### A MATHEUS, BMP, GFR, CBC, ADIFF #### [place] [address] WBC 6.4 10 3/mcL Normal 4.5-10.8 [facility] Comment on above: Performed By: #### A MATHEUS, BMP, GFR, CBC, ADIFF #### [place] [address] LABORATORYOrdered By: SYSTEM SYSTEM on 03-11-2025 Basophils (Bld) [#/Vol] 0.1 103/mcL Normal 0.0 - 0.3 10^3/mcL Workflow SS Basophils/100 WBC (Bld) 0.8 % Normal 0.0 - 2.5 % Workflow SS Calcium [Mass/Vol] 9.7 mg/dL Normal 8.7 - 10. 4 mg/dL ADM SS Chloride [Moles/Vol] 104 mmol/L Normal 98 - 11 0 mEq/L ADM SS CO2 [Moles/Vol] 31 mmol/L Normal 22 - 32 mEq/L ADM SS Creatinine [Mass/Vol] 0.71 mg/dL Normal 0.50 - 1.20 mg/dL ADM SS Comment on above: Interpretive Data: T esting performed on Gig[employer] analyzer using enzymatic creatinine methodology. Electrolyte Balance 6.0 mEq/L Normal 4.0 - 15 .0 mEq/L ADM SS Eosinophils (Bld) [#/Vol] 0.2 103/mcL Normal 0.0 - 0.7 10^3/mcL Workflow SS Eosinophils/100 WBC (Bld) 3.4 % Normal 0.0 - 6.0 % Workflow SS Erythrocyte distribution width (RBC) [Ratio] 13.9 % Normal 11.5 - 15.5 % Workflow SS Estimated Glomerular Filtration Rate 93 ml/min/1.73sqm Invalid Interpretation Code Chemistry S Comment on above: Interpretive Data: Stages of Chronic Kidney Disease (CKD) Stage Description eGFR(ml/min/1.73 sq.m.) CKD 1 Normal kidney function or >=90 normal kindney function with possible kidney damage (ex. Proteinuria) CKD 2 Kidney damage with mild loss 60-89 of kidney function CKD 3a Mild to moderate loss of kidney 45-59 function CKD 3b Moderate to severe loss of 30-44 of kindey function CKD 4 Severe loss of kidney function 15-29 CKD 5 Kidney failure <15 Note: (go live 2024) the eGFR calculation was updated to the 2020 CKD-EPI creatinine equation without a race factor to calculate the eGFR results. Glucose [Mass/Vol] 111 mg/dL Normal 82 - 115 mg/dL ADM SS Hematocrit (Bld) [Volume fraction] 43.4 % Normal 34.0 - 46.0 % Workflow SS Hemoglobin (Bld) [Mass/Vol] 14.7 G/dL Normal 12.0 - 16.0 G/dL AH Workflow SS Lymphocytes (Bld) [#/Vol] 1.7 103/mcL Normal 0.9 - 4.3 10^3/mcL AH Workflow SS Lymphocytes/100 WBC (Bld) 26.1 % Normal 20.0 - 40.0 % AH Workflow SS MCH (RBC) [Entitic mass] 30.2 pg Normal 27.0 - 33.0 pg AH Workflow SS MCHC 34.0 G/dL Normal 32.0 - 36.0 G/dL AH Workflow SS MCV (RBC) [Entitic vol] 89.0 fL Normal 80.0 - 99.0 fL AH Workflow SS Monocytes (Bld) [#/Vol] 0.6 103/mcL Normal 0.1 - 1.4 10^3/mcL AH Workflow SS Monocytes/100 WBC (Bld) 8.8 % Normal 2.0 - 13.0 % AH Workflow SS Neutrophils (Bld) [#/Vol] 3.9 103/mcL Normal 2.3 - 8.1 10^3/mcL AH Workflow SS Neutrophils/100 WBC (Bld) 60.9 % Normal 50.0 - 75.0 % AH Workflow SS Platelet mean volume (Bld) [Entitic vol] 9.6 fL Normal 6.6 - 10.5 fL AH Workflow SS Platelets (Bld) [#/Vol] 173 103/mcL Normal 150 - 450 10^3/mcL AH Workflow SS Potassium [Moles/Vol] 4.3 mmol/L Normal 3.5 - 5.0 mEq/L AH ADM SS RBC (Bld) [#/Vol] 4.88 106/mcL Normal 4.10 - 5.30 10^6/mcL AH Workflow SS Sodium [Moles/Vol] 141 mmol/L Normal 136 - 145 mEq/L ADM SS Urea nitrogen [Mass/Vol] 19.0 mg/dL Normal 8.0 - 22.0 mg/dL ADM SS Urea nitrogen/Creatinine [Mass ratio] 26.8 ratio High 10.0 - 22.0 ratio AH ADM SS WBC (Bld) [#/Vol] 6.4 103/mcL Normal 4.5 - 10.8 10^3/mcL AH Workflow SS Endocrinology Visit Reporton 03-10-2025 Endocrinology Visit Report [facility] [address] [place] [address]. [address] [place] [address] OFFICE VISIT Date of Service: 03/10/25 MR#: [id number] Acct: [id number] Name: AMAYA GARCIA Rep #: [id number] : 1955 Provider: LANA meyers Age/Sex: 69/F Location: [facility] [place] Status: Signed Intake Vital Signs 09/09/24 15:25 02/10/25 09:57 03/10/25 09:32 Height 5 ft 1 in 5 ft 1 in 5 ft 1 in Weight: 197 lb BMI 37.2 BP 117/79 Blood Pressure Location Rt brachial Position Sitting Pulse 78 Pulse Source Monitor Pulse Oximetry (%) 96 Oxygen Delivery Method room air Intake Visit Reasons: 6 M FU Chief Complaint: f/u diabetes Is patient in pain?: No Allergies No Known Allergies Allergy (Verified 03/10/25 09:36) Medications ???Medication ???Instructions ???Recorded ???Confirmed ???Type trazodone 150 mg tablet 150 mg PO QHS 01/10/17 03/10/25 Hi story escitalopram oxalate 10 mg tablet 10 mg PO DAILY 02/25/17 03/10/25 History rosuvastatin 40 mg tablet 40 mg PO DAILY 12/31/17 03/10/25 H istory cholecalciferol (vitamin D3) 25 1,000 unit PO DAILY 05/30/2003/10 History mcg (1,000 unit) tablet valacyclovir 500 mg tablet 500 mg PO DAILY 05/30/20 03/10/25 History cyclobenzaprine 5 mg tablet 5 mg PO DAILY PRN muscle spasm 04/2603/10/25 History meloxicam 15 mg tablet 15 mg PO QDAY 03/11/24 03/10/25 Hi story ezetimibe 10 mg tablet (Zetia) 10 mg PO DAILY #90 tabs 08/18/24 0 03/10/25 Rx fesoterodine 4 mg tablet,extended 4 mg PO QDAY 03/10/25 03/10/25 Hi story release 24 hr Have you fallen in the past year?: No PFSH Medical History Abnormal mammogram of right breast Abnormal ultrasound of breast Left breast mass Urinary tract infection Wears glasses Cancer Alcohol use Diabetes Rheumatoid arthritis Bladder disease Cirrhosis Easy bruising History of IBS Former smoker BiPAP (biphasic positive airway pressure) dependence History of edema History of stress test IBS (irritable bowel syndrome) DOROTEO (obstructive sleep apnea) Obesity Vitamin D deficiency Breast cancer SOB (shortness of breath) Hyperlipidemia Diverticulitis Arthritis Surgical History History of shoulder surgery History of tonsillectomy and adenoidectomy History of tubal ligation History of lumpectomy History of section Family History Mother CVA (cerebral vascular accident) Arthritis Heart disease Father Hypertension Heart disease Diabetes Aunt Breast cancer Grandmother Breast cancer Other Angina at rest Asthma High cholesterol Myocardial infarction Social History Smoking Status: Former smoker Tobacco: How many years used: 20 how long ago did patient quit smokin, 1ppd second hand exposure: Yes alcohol intake: current alcohol intake frequency: a few times a month Alcohol type: beer substance use type: does not use what type of physical activity do you participate in: none HPI HPI Chief Complaint: f/u diabetes Details: AMAYA GARCIA, is a 69 F who presents to the office today for evaluation and management of diabetes. A1C today is 5.8%, essentially unchanged from 09/09/24. She has gained 15 lbs since that time. She is not currently on any diabetic medications. She was on a GLP1 previously and became unaffordable once she was in the [facility]. She is interested in resuming in the future. BP is controlled. She is taking ezetimibe. She is due for routine labs. She is having a double mastectomy in 2 weeks for bilateral breast cancer. Denies any acute concerns. ROS Const Constitutional: Positive for weight change (gain); No fatigue ENT ENT: No dizziness/vertigo Cardio Cardiology: No chest pain at rest, chest pain with exertion, shortness of breath or palpitations Skin Skin: No wounds Endo Endocrine: Positive for weight change (gain); No fatigue Exam Const General: cooperative, healthy appearing, comfortable and no acute distress Nutritional Appearance: obese Orientation: alert, awake and oriented x3 HENMT Head: normal to inspection Ears: hearing grossly normal bilaterally Nose: external nose normal Face and sinus: normal facial exam Eyes General: appearance normal, both eyes and all related structures Alignment and Position: alignment normal Sclera: sclerae normal Neck Neck: normal visual inspection Chest Chest palpation inspection: normal inspection of the chest Resp Effort Inspection: normal respiratory effort, able to speak in complete sentences, symmetric chest movement, (more content not included)... Normal [facility] Laboratory - Hematology and Cell countsOrdered By: Elly Leslie on 03-10-2025 HbA1c (Bld) [Mass fraction] 5.8 % 4.2-6.3 [facility] Oncology Visit Reporton Oncology Visit Report [facility] [address] [place] [address] OFFICE VISIT Date of Service: 02/10/25 0955 MR#: [id number] Acct: [id number] Name: AMAYA GARCIA JASMYNE Rep #: [id number] : 1955 From: Brando Chacon MD Age/Sex: 69/F Location: [facility] [place] Status: Signed HPI Subjective Date of Service 02/10/25 Chief Complaint F/u for R breast cancer. History of Present Illness 69-year-old woman with h/o left breast DCIS She underwent stereotactic breast biopsy on December 25, 2016 which showed DCIS, ER/CT positive. She had left breast lumpectomy and sentinel node biopsy on January 15, 2017 which showed DCIS with no wilton involvement. She completed radiation therapy to the left breast from 02/19/2017 to 04/14/2017. Tamoxifen April 15, 2017- February 2023. Developed L breast nodule. Had mammogram and US. Biopsy of left breast nodule on 12/22/2024 showed invasive ductal carcinoma, ER/CT positive. Biopsy of R breast showed DCIS on 01/06/2025. Had lower back pain and worried that it is metastatic disease so CT and bone scan were requested. Comes for follow up. Has seen Breast surgeon in [place] and wants to do her surgery over there. Interval History . [facility] Medical History Abnormal mammogram of right breast Abnormal ultrasound of breast Left breast mass Urinary tract infection Wears glasses Cancer Alcohol use Diabetes Rheumatoid arthritis Bladder disease Cirrhosis Easy bruising History of IBS Former smoker BiPAP (biphasic positive airway pressure) dependence History of edema History of stress test IBS (irritable bowel syndrome) DOROTEO (obstructive sleep apnea) Obesity Vitamin D deficiency Breast cancer SOB (shortness of breath) Hyperlipidemia Diverticulitis Arthritis Surgical History History of shoulder surgery History of tonsillectomy and adenoidectomy History of tubal ligation History of lumpectomy History of section Family History Mother CVA (cerebral vascular accident) Arthritis Heart disease Father Hypertension Heart disease Diabetes Aunt Breast cancer Grandmother Breast cancer Other Angina at rest Asthma High cholesterol Myocardial infarction Social History Smoking Status: Former smoker Tobacco: How many years used: 20 how long ago did patient quit smokin, 1ppd second hand exposure: Yes alcohol intake: current alcohol intake frequency: a few times a month Alcohol type: beer substance use type: does not use what type of physical activity do you participate in: none Intake Vital Signs 01/27/25 09:38 02/10/25 09:57 Height 5 ft 1 in 5 ft 1 in Weight: 88.025 kg BMI 36.6 BP 124/92 H Blood Pressure Location Rt brachial Position Sitting Respiration 16 Pulse 79 Pulse Source Monitor Temp 97.8 F Temperature Source Temporal Artery Pulse Oximetry (%) 98 Oxygen Delivery Method room air Intake Is patient in pain?: No Allergies No Known Allergies Allergy (Verified 02/10/25 09:58) Medications ???Medication ???Instructions ???Recorded ???Confirmed ???Type trazodone 150 mg tablet 150 mg PO QHS 01/10/17 02/10/25 Hi story escitalopram oxalate 10 mg tablet 10 mg PO DAILY 02/25/17 02/10/25 History rosuvastatin 40 mg tablet 40 mg PO DAILY 12/31/17 02/10/25 H istory cholecalciferol (vitamin D3) 25 1,000 unit PO DAILY 05/30/2002/10 History mcg (1,000 unit) tablet valacyclovir 500 mg tablet 500 mg PO DAILY 05/30/20 02/10/25 History cyclobenzaprine 5 mg tablet 5 mg PO DAILY PRN muscle spasm 04/2602/10/25 History meloxicam 15 mg tablet 15 mg PO QDAY 03/11/24 02/10/25 Hi story ezetimibe 10 mg tablet (Zetia) 10 mg PO DAILY #90 tabs 08/18/24 0 02/10/25 Rx Have you fallen in the past year?: No Laboratory Tests 05/12/19 05/12/19 05/12/19 11:28 11:28 11:28 WBC Hgb Hct Plt Count Absolute Neuts (auto) Sodium Potassium Chloride Carbon Dioxide BUN Creatinine Glucose Calcium AST Total Bilirubin ALT Alkaline Phosphatase Lactate Dehydrogenase Total Protein 7.0 Albumin 3.6 Globulin 3.4 CA 15-3 Antigen CA 27-29 05/12/19 11/29/21 06/06/22 11:28 10:12 11:00 WBC 6.9 8.4 Hgb 15.3 H 14.8 Hct 46.6 47.3 H 45.6 Plt Count 209 192 187 Absolute Neuts (auto) 5.0 Sodium 138 141 Potassium 4.2 4.3 Chloride 109 H 106 Carbon Dioxide 25.0 27.0 BUN 22 H 19 H Creatinine 0.78 0.71 Glucose 137 H 135 H Calcium 9.4 9.0 AST 53 H 111 H 122 H Total Bilirubin 0.40 0.30 ALT 92 H 93 H 102 H Alkaline P (more content not included)... Normal [facility] Bone Scan Whole Bodyon 02-07 Bone Scan Whole Body [facility] Imaging Services [address] [place] [address] Bone Scan Whole Body MR#: [id number] Acct: [id number] Name: AMAYA GARCIA JASMYNE Rep #: [id number] : 1955 F 69 From: Alek Sampson PCP: LANA Ramirez Status: REG CLI Study: Bone Scan Whole Body Date of Exam: 02/07/25 Exam# [id number] Ordering Dr: Brando Chacon MD PROCEDURE: BONE SCAN WHOLE BODY 02/07/2025 REASON FOR EXAM: BREAST CA TECHNIQUE: Whole-body bone scan. RADIOPHARMACEUTICAL: 24.6 mCi Technetium-99m MDP IV. COMPARISON: CORRELATION WITH EXISTING RELEVANT IMAGING STUDIES (i.e. x-ray, MRI, CT, etc.): No existing relevant imaging study available , patient did not have a previous relevant imaging study. FINDINGS: Mild degenerative changes are seen of the spine and knees. Xxxti-[id number]-left shoulder area degenerative changes are noted. No findings are seen to suggest the presence of osseous metastatic disease. NM/Bone Scan Whole Body IMPRESSION: No scintigraphic evidence of osseous metastatic disease. Reading Location: [place] [address] CC: LANA Mckay; Dr. Brando Chacon MD Claims Vice President: Signed Normal [facility] Consultation Reporton 2024 Consultation Report . Pathology Reports Accession: Collected Date/Time: Received Date/Time: Pathologist: [id number] 02/04/2025 12:40 EDT 02/04/2025 12:40 EDT CLAUDIO MONSALVE MD Consultation Report DIAGNOSIS: A. LEFT BREAST NEEDLE CORE BIOPSY (KELLOGG 25 1172): - INVASIVE GRADE 2 DUCTAL CARCINOMA, ER AND CT POSITIVE, HER2/MATHEUS EQUIVOCAL BY IHC. B. RIGHT BREAST NEEDLE CORE BIOPSY ([id number]): - DUCTAL CARCINOMA IN SITU, NUCLEAR GRADE 2, WITH CENTRAL NECROSIS. ER AND CT NEGATIVE Comment: Slides received from [facility]. I am in essential agreement with our pathologist CLINICAL INFORMATION: . Preoperative diagnosis: _ Postoperative diagnosis: _ SPECIMEN: LEFT BREAST,CORE BIOPSY ([id number]) RIGHT BREAST, CORE BIOPSY ([id number]) GROSS DESCRIPTION: RECEIVED FROM [facility] ARE 2 SEPARATE CASES FOR AMAYA GARCIA. FIRST CASE (LEFT CORE BIOPSY) CONSISTS OF 7 GLASS SLIDES LABELED [id number] KAREN. SECOND CASE (RIGHT BREAST BIOPSY) CONSISTS OF 15 GLASS SLIDES LABELED [id number] KAREN. Performed by CLAUDIO MONSALVE MICROSCOPIC DESCRIPTION: The microscopic examination is performed, except in the case of Gross Only. Verified by Pathology Report verified by [facility] CLAUDIO MONSALVE Sign out Date: 02/04/2025 13:56 Performing Lab: [facility], [address] [place] [address] Pathology Dept Disclaimer If ancillary studies were utilized, the following Laboratory Developed Test (LDT) disclaimer will apply: Under CLIA requirements, [facility] is qualified to perform high complexity testing. For all ancillary stains, positive and negative controls stain appropriately. Performance characteristics of immunohistochemical and chromogenic in-situ hybridization tests have been determined by [facility]. These tests are used for clinical purposes, They should not be regarded as investigational or for research. . Normal [facility] Surgical pathology reportOrd ered By: Iraida Chang on 02-04-2025 Surgical pathology study [facility] CA 15-3on 01-28-2025 CA 15-3 7.9 U/mL Normal 0.0-25.0 [facility] Comment on above: Result Comment: [facility] Electrochemiluminescence Immunoassay (ECLIA) Values obtained with different assay methods or kits cannot be used interchangeably. Results cannot be interpreted as absolute evidence of the presence or absence of malignant disease. Performed at: [employer] [id number] Executive Producer: Stevie Nelson PhD, Phone: [phone] Performed By: #### L 900.0098, L3100.5040, L3100.5030 #### [facility] Laboratory [address] [place], [place], [id number] CA 27.29on 01-28-2025 CA 27.29 12.3 U/mL Normal 0.0-38.6 [facility] Comment on above: Result Comment: [employer] Immunochemiluminometric Methodology (ICMA) Values obtained with different assay methods or kits cannot be used interchangeably. Results cannot be interpreted as absolute evidence of the presence or absence of malignant disease. Performed By: #### L 900.0098, L3100.5040, L3100.5030 #### [facility] Laboratory [address] [place], [address] CREATININE FINGERSTICKon CREATININE WB < 1.0 Normal 0.55-1.02 [facility] Comment on above: Performed By: #### L 9100.0200 ####[facility] [address] [place], [address] EGFR WB > 60.0000 Normal >60 [facility] Comment on above: Performed By: #### L 9100.0200 ####[facility] [address] [place], [address] CT Chest, Abd, Pel w/Contras ton 01-28-2025 CT Chest, Abd, Pel w/Contrast [facility] Imaging Services [address] [place] [address] CT Chest, Abd, Pel w/Contrast MR#: [id number] Acct: [id number] Name: AMAYA GARCIA Rep #: [id number] : 1955 F 69 From: Sg Borden MD PCP: LANA Ramirez Status: REG CLI Study: CT Chest, Abd, Pel w/Contrast Date of Exam: Exam# [id number] Ordering Dr: Brando Chacon MD PROCEDURE: CT CHEST, ABD, PEL W/CONTRAST 01/28/2025 REASON FOR EXAM: BREAST CA-IV ONLY TECHNIQUE: Chest, abdomen and pelvis CT with intravenous contrast. Contiguous axial scans of 2.5 mm slice thicknesses. Sagittal and coronal reconstruction images were obtained. One or more dose reduction techniques were used (e.g., automated exposure control, adjustment of mA and/or kv according to patient size, use of iterative reconstruction technique). PATIENT PREPARATION: Per protocol ORAL CONTRAST TYPE: Not given. CONTRAST: Isovue 370 VOLUME: 95mL RADIATION DOSE SUMMARY: CTDlvol: 51.33 mGy DLP: 1622.48 mGycm COMPARISON: No relevant prior. FINDINGS: CT CHEST: Lungs and Airways: The lungs are normally expanded and clear. Hypoventilatory changes in the dependent lungs. Pleura: No pleural effusion. No pneumothorax. Heart: Normal heart size Pericardium: No thickening. No pericardial effusion. Coronary arteries: Atherosclerotic calcific changes. Thoracic Aorta: Mild atherosclerotic calcifications. No aneurysm. Pulmonary Vessels: No large central filling defects. Mediastinum: No mediastinal hilar or axillary lymphadenopathy. Thyroid:Calcified left thyroid gland nodule measuring 1.0 cm, axial image 13. Bones: Mild multilevel spondylosis Soft tissues: Metallic biopsy clip, right breast. CT ABDOMEN / PELVIS: Liver: Mass of the evaluation in the dome of the liver measuring 1.9 cm, axial image 13. a small subcentimeter cyst in the left hepatic lobe, axial image 18. Gallbladder: Small calcifications layer dependently, axial images 41 and 42. Spleen: Unremarkable. Pancreas: No masses. Normal parenchymal attenuation. Adrenals: No nodules. Kidneys: Excrete contrast material symmetrically. Bilateral extrarenal pelves. No suspicious masses. Kidneys are normal in size. Bladder: Unremarkable. Reproductive Organs: Lobulated and enlarged uterus. Bowel: Unremarkable. Appendix: No signs of appendicitis. Lymph nodes: No suspicious lymphadenopathy. Vasculature: Atherosclerotic aortoiliac calcific disease. Peritoneum / Retroperitoneum: No free fluid. No free air. No masses are identified. Anterior abdominal wall: Left-sided fat containing spigelian hernia measuring 7 0.2 x 4.0 cm. Bones: Unremarkable. CT/CT Chest, Abd, Pel w/Contrast IMPRESSION: 1. Unremarkable computed tomography of the chest. 2. Small hepatic cysts. 3. Cholelithiasis. 4. Lobulated and enlarged uterus raising concern for fibroids. 5. Left spigelian hernia. 6. Other nonacute findings detailed above. Reading Location: [place] CC: LANA Mckay; Dr. Brando Chacon MD Claims Vice President: Signed Normal [facility] EGFROrdered By: Brando Chacon on 01-28-2025 GFR/1.73 sq M.predicted among non-blacks MDRD (S/P/Bld) [Vol rate/Area] mL/min/{1.73_m2} >60 [facility] SURG PATH REQUESTon 01-29-20 Case Report Normal [facility] Comment on above: Result Comment: Surg ical Pathology Report Case: [id number] Authorizing Provider: Iraida Chang MD Collected: 01/28/2025 02:09 PM Ordering Location: [facility] Received: 01/28/2025 02:11 PM [facility] Pathologist: Claudio Howell MD, PhD Specimen: SURG [facility] case [id number]; Left breast, core biopsy; Molecular testing Performed By: #### S URGP #### [facility] (DEFAULT) [address] [address] Clinical History Normal [facility] Comment on above: Result Comment: Rece ived is a request from Dr. Iraida Chang at [facility] for FISH testing on case [id number]. Performed By: #### S URGP #### [facility] (DEFAULT) [address] [address] Gross Description [facility] Comment on above: Result Comment: The following material(s) are received from [facility], [address] [place] [address], with an identifying Surgical Pathology Report: 1 H&E, 1 non H&E (Her2), and 2 unstained slides (A1) labeled [id number], which are submitted to [facility] Histology/[facility] for HER2 FISH testing. Outside materials are returned in 60 days under separate cover with our number recorded on them. Grosser for this case was: Angely Brannon Performed By: #### S URGP #### [facility] (DEFAULT) [address] [address] Microscopic Description Tissue was assessed by a molecular pathologist to select areas for analysis and to correlate immunostaining with histology. No morphologic assessment was requested. Normal [facility] Comment on above: Performed By: #### S URGP #### [facility] (DEFAULT) [address] [address] Pathologic Diagnosis [facility] Comment on above: Result Comment: Outs jaycee Slides [id number] (12/22/24) A. Left breast, core biopsy: HER2 FISH: Negative (see FISH report for details) at 1558 EDT Performed By: #### S URGP #### [facility] (DEFAULT) [address] [address] Professional Interpretation Performed at: Normal [facility] Comment on above: Result Comment: [facility] For Immediate Release to Patient's MyChart? Yes [address] [facility] [address] [place], [place] [address] Performed By: #### S URGP #### [facility] (DEFAULT) [address] [place] [address] CA 15-3Ordered By: Brando patel on 01-27-2025 CA 15-3 7.9 U/mL 0.0-25.0 [facility] Comment on above: [employer] El ectrochemiluminescence Immunoassay(ECLIA)Values obtained with different assay methods or kits cannotbe used interchangeably. Results cannot be interpreted asabsolute evidence of the presence or absence of malignantdisease.Performed at: [facility] [address] [id number] Director: Stevie Nelson PhD, Phone: [phone] CA 27.29Ordered By: Brando solis on 01-27-2025 CA 27.29 12.3 U/mL 0.0-38.6 [facility] Comment on above: [employer] Immu nochemiluminometric Methodology (ICMA)Values obtained with different assay methods or kits cannotbe used interchangeably. Results cannot be interpreted asabsolute evidence of the presence or absence of malignantdisease. NATERAon 01-27-2025 NATURA SEE SCANNED REPORT Normal [facility] Comment on above: Performed By: #### L 900.0098, L3100.5040, L3100.5030 #### [facility] Laboratory [address] [place], [address] Oncology Visit Reporton 01-05 Oncology Visit Report [facility] [address] [place] [address] OFFICE VISIT Date of Service: 01/27/25 0937 MR#: [id number] Acct: [id number] Name: AMAYA GARCIA Rep #: [id number] : 1955 From: Brando Chacon MD Age/Sex: 69/F Location: [facility] Status: Signed HPI Subjective Date of Service 01/27/25 Chief Complaint discuss breast surgery History of Present Illness 69-year-old woman with h/o left breast DCIS She underwent stereotactic breast biopsy on December 25, 2016 which showed DCIS, ER/CT positive. She had left breast lumpectomy and sentinel node biopsy on January 15, 2017 which showed DCIS with no wilton involvement. She completed radiation therapy to the left breast from 02/19/2017 to 04/14/2017. Tamoxifen April 15, 2017- February 2023. Developed L breast nodule. Had mammogram and US. Biopsy of left breast nodule on 12/22/2024 showed invasive ductal carcinoma, ER/CT positive. Biopsy of R breast showed DCIS on 01/06/2025. She comes for follow-up to discuss further management. Has developed lower back pain and worried that it is metastatic disease. Interval History . [facility] Medical History Abnormal mammogram of right breast Abnormal ultrasound of breast Left breast mass Urinary tract infection Wears glasses Cancer Alcohol use Diabetes Rheumatoid arthritis Bladder disease Cirrhosis Easy bruising History of IBS Former smoker BiPAP (biphasic positive airway pressure) dependence History of edema History of stress test IBS (irritable bowel syndrome) DOROTEO (obstructive sleep apnea) Obesity Vitamin D deficiency Breast cancer SOB (shortness of breath) Hyperlipidemia Diverticulitis Arthritis Surgical History History of shoulder surgery History of tonsillectomy and adenoidectomy History of tubal ligation History of lumpectomy History of section Family History Mother CVA (cerebral vascular accident) Arthritis Heart disease Father Hypertension Heart disease Diabetes Aunt Breast cancer Grandmother Breast cancer Other Angina at rest Asthma High cholesterol Myocardial infarction Social History Smoking Status: Former smoker Tobacco: How many years used: 20 how long ago did patient quit smokin, 1ppd second hand exposure: Yes alcohol intake: current alcohol intake frequency: a few times a month Alcohol type: beer substance use type: does not use what type of physical activity do you participate in: none Intake Vital Signs 01/19/25 15:12 01/27/25 09:38 Height 5 ft 1 in 5 ft 1 in Weight: 87.09 kg 88.11 kg BMI 36.2 36.7 BP 118/83 H 135/86 H Blood Pressure Location Rt brachial Rt brachial Position Sitting Sitting Respiration 18 16 Pulse 80 77 Pulse Source Monitor Monitor Temp 97.6 F L 98.5 F Temperature Source Temporal Artery Pulse Oximetry (%) 99 98 Oxygen Delivery Method room air room air Intake Is patient in pain?: No Allergies No Known Allergies Allergy (Verified 01/27/25 09:43) Medications ???Medication ???Instructions ???Recorded ???Confirmed ???Type trazodone 150 mg tablet 150 mg PO QHS 01/10/17 01/27/25 Hi story escitalopram oxalate 10 mg tablet 10 mg PO DAILY 02/25/17 01/27/25 History rosuvastatin 40 mg tablet 40 mg PO DAILY 12/31/17 01/27/25 H istory cholecalciferol (vitamin D3) 25 1,000 unit PO DAILY 05/30/2001/27 History mcg (1,000 unit) tablet valacyclovir 500 mg tablet 500 mg PO DAILY 05/30/20 01/27/25 History cyclobenzaprine 5 mg tablet 5 mg PO DAILY PRN muscle spasm 04/2601/27/25 History meloxicam 15 mg tablet 15 mg PO QDAY 03/11/24 01/27/25 Hi story ezetimibe 10 mg tablet (Zetia) 10 mg PO DAILY #90 tabs 08/18/24 0 01/27/25 Rx Have you fallen in the past year?: No 12/22/2024 L breast core biopsy reviewed. MICROSCOPIC DIAGNOSIS A. Left breast, core biopsy: - Invasive ductal carcinoma, at least 0.7 cm, Grade 2 ??? see note and Comment. - Tubule 3, nuclear 2, mitosis 1 - ER: positive (95%, strong intensity). - CT: positive (25%, intermediate intensity). - [id number]: equivocal (2+) - [id number]: PENDING AT [facility], to be reported in an Addendum - Ki67q: proliferative index 25%. 01/06/2025 stereotactic right breast biopsy reviewed MICROSCOPIC DIAGNOSIS A. Right Breast, anterior upper lateral, ???microcalcifications??? , core biopsy: - DCIS (ductal carcinoma in situ), multifocal, intermediate nuclear grade with comedonecrosis, at least 0.6 cm. - ER: negative - CT: negative Exam Physical Exam Const alert, oriented x3 and no apparent distress Back/Spine thoracic and lum (more content not included)... Normal [facility] Surgery Visit Reporton 01-19 Surgery Visit Report [facility] [address] [place] [address] OFFICE VISIT Date of Service: 01/19/25 MR#: [id number] Acct: [id number] Name: AMAYA GARCIA Rep #: [id number] : 1955 Provider: Dr. Darrel barron MD Age/Sex: 69/F Location: [facility] Status: Signed Intake Vital Signs 12/22/24 08:15 01/19/25 15:12 Height 5 ft 1 in 5 ft 1 in Weight: 192 lb 192 lb BMI 36.2 36.2 BP 122/86 H 118/83 H Blood Pressure Location Rt brachial Rt brachial Position Sitting Sitting Respiration 17 18 Pulse 81 80 Pulse Source Monitor Monitor Temp 96.6 F L 97.6 F L Temp Source Temporal Temporal Pulse Oximetry (%) 98 99 Oxygen Delivery Method room air room air Intake Visit Reasons: DISCUSS BREAST SURGERY Chief Complaint: discuss breast surgery Accompanied by: and daughter Is patient in pain?: No Allergies No Known Allergies Allergy (Verified 12/22/24 08:16) Medications ???Medication ???Instructions ???Recorded ???Confirmed ???Type trazodone 150 mg tablet 150 mg PO QHS 01/10/17 01/19/25 Hi story escitalopram oxalate 10 mg tablet 10 mg PO DAILY 02/25/17 01/19/25 History rosuvastatin 40 mg tablet 40 mg PO DAILY 12/31/17 01/19/25 H istory cholecalciferol (vitamin D3) 25 1,000 unit PO DAILY 05/30/2001/19 History mcg (1,000 unit) tablet valacyclovir 500 mg tablet 500 mg PO DAILY 05/30/20 01/19/25 History cyclobenzaprine 5 mg tablet 5 mg PO DAILY PRN muscle spasm 04/2601/19/25 History meloxicam 15 mg tablet 15 mg PO QDAY 03/11/24 01/19/25 Hi story ezetimibe 10 mg tablet (Zetia) 10 mg PO DAILY #90 tabs 08/18/24 0 01/19/25 Rx Have you fallen in the past year?: No PFSH Medical History Abnormal mammogram of right breast Abnormal ultrasound of breast Left breast mass Urinary tract infection Wears glasses Cancer Alcohol use Diabetes Rheumatoid arthritis Bladder disease Cirrhosis Easy bruising History of IBS Former smoker BiPAP (biphasic positive airway pressure) dependence History of edema History of stress test IBS (irritable bowel syndrome) DOROTEO (obstructive sleep apnea) Obesity Vitamin D deficiency Breast cancer SOB (shortness of breath) Hyperlipidemia Diverticulitis Arthritis Surgical History History of shoulder surgery History of tonsillectomy and adenoidectomy History of tubal ligation History of lumpectomy History of section Family History Mother CVA (cerebral vascular accident) Arthritis Heart disease Father Hypertension Heart disease Diabetes Aunt Breast cancer Grandmother Breast cancer Other Angina at rest Asthma High cholesterol Myocardial infarction Social History Smoking Status: Former smoker Tobacco: How many years used: 20 how long ago did patient quit smokin, 1ppd second hand exposure: Yes alcohol intake: current alcohol intake frequency: a few times a month Alcohol type: beer substance use type: does not use what type of physical activity do you participate in: none HPI HPI HPI: The patient is a 69-year-old female who was recently seen to the office with bilateral breast abnormalities seen on imaging. The left breast lesion had a palpable abnormality which was biopsied via core biopsy in the office. Pathology initially came back as invasive ductal carcinoma but ER and CT status still pending. She also had a history of previous DCIS on the left treated with lumpectomy, radiation and sentinel lymph node biopsy. The right breast had microcalcifications which we performed a stereotactic biopsy on. This unfortunately came back as DCIS as well. She presents today to discuss these results. Upon further discussion, patient states that she had a maternal aunt as well as a grandmother that both had breast cancer. At the time of her initial DCIS diagnosis in 2017, genetic testing was not advised. ROS General General: Yes breast cancer; No weight change, appetite, fatigue, colon cancer or weakness HEENT HEENT: No difficulty swallowing, eye injury, eye surgery, swollen glands or hoarseness Endo Endocrine: Yes diabetes mellitus; No thyroid disease, thyroid cancer, Hair loss, heat intolerance or cold intolerance Skin Skin: No rash or changing moles Breast Breast: Yes left breast lump, abnormal mammogram and abnormal US; No right breast lump, nipple discharge, breast pain or breast enlargement Musc Musculoskeletal: No back problems, arthritis, rheumatoid arthritis, gout or joint pain Cardio Cardiovascular: No murmur, pacemaker, hea (more content not included)... Normal [facility] Immunohistochemical Stainson 01-06-2025 Immunohistochemical Stains Patient Age/Sex Location Account Attending Physician AMAYA GARCIA 69/F LONNIE [id number] Dr. Darrel Lacy MD Specimen: [id number] Received: 01/06/25 Status: PRETTY Katz Num: [id number] Spec Type: BREAST BX Subm Dr: Dr. Darrel Lacy MD HEADER OPERATION: Right stereotactic breast biopsy PRE-OP DIAGNOSIS: Right anterior upper lateral breast macrocalcifications TISSUE SUBMITTED: A- Right breast core tissue Ischemic Time: 1 minute Fixation Time: 6-72 hours MICROSCOPIC DIAGNOSIS A. Right Breast, anterior upper lateral, microcalcifications, core biopsy: - DCIS (ductal carcinoma in situ), multifocal, intermediate nuclear grade with comedonecrosis, at least 0.6 cm. - ER: negative - CT: negative Note: Additional IHCs utilized in the assessment - ER (A1,2,4) CT (A4) CK5/6 (A1,2,4,5) E-cadherin (A4,5) MICROSCOPIC DESCRIPTION Slides are reviewed. All matched controls reacted appropriately. These tests were developed and their performance characteristics determined by [facility]. They may not have been cleared or approved by the U.S. Food and Drug Administration. The FDA has determined that such clearance or approval is not necessary. The above immunohistochemical/dualI SH markers are ordered and reviewed by the Pathologist. GROSS DESCRIPTION A. Received in formalin in a container labeled with the patient's name, date of , and right breast core tissue are approximately 8 acosta-yellow core biopsies of fibrofatty tissue ranging from 1.3 cm in length by 0.4 cm in diameter to 2.5 cm in length by 0.7 cm in diameter. In addition, there are multiple core biopsy fragments measuring 2.5 x 1.0 x 0.4 cm in aggregate. The specimen is submitted in toto as follows:A1-4. 2 cores per cassetteA5. Core biopsy fragments Cold ischemic time: 1 minute. Total formalin fixation time: Between 6 and 72 hours. [facility] 01-06-2025 CPT:39857,79256,90998z6,8 8360x2 Patient Age/Sex Location Account Attending Physician AMAYA GARCIA 69/F B[place] [id number] Dr. Darrel Lacy MD Signed (signature on file) Dr. Iraida Chang MD 01/18/25 1509 [facility] Comment on above: Performed By: #### P [facility] #### [facility] Laboratory [address] [place], [address] Operative Reporton 5 Operative Report [facility] Medical Records Department [address] [place] [address] Operative Report 01/06/25 0917 MR#: [id number] Acct: [id number] Name: AMAYA GARCIA Rep #: [id number] : 1955 69 From: Darrel Lacy MD PCP: LANA Ramirez Status:REG CLI Location: [facility] Problems Associated Problem List Diagnoses (1) Abnormal mammogram of right breast: Procedures Integumentary [id number]: [id number] Bx breast 1st lesion strtctc Operative Report (Standard) Operative Information Date of Procedure: 01/06/25 Pre-Operative Diagnosis: Abnormal right breast mammogram/microcalcificat ions Post-Operative Diagnosis: Same Surgery/Procedure Performed: Right breast stereotactic biopsy account executive trainee: No Type of Anesthesia: Local Procedure Start Time: 08:30 Procedure Stop Time: 09:00 Select all DRAINS/GRAFTS/IMPLANTS that apply: Implanted device Implanted device details: Post procedure marking clip Special Medications: None Estimated Blood Loss: Minimal Specimen collected: Yes Description of specimen(s) removed: Right breast tissue containing microcalcifications Description of surgery: The patient is a 69-year-old female recently seen through the office with bilateral breast lesions seen on mammogram. The left breast lesion was biopsied in the office under ultrasound guidance. Pathology is still pending. The right breast microcalcifications required a stereotactic biopsy for which she is presenting for today. We discussed the details of the planned procedure and she wishes to proceed. After obtaining informed consent, the patient was placed prone on the mammotome table. The right breast was suspended through the aperture and the table. Compression views were then obtained until the area of microcalcifications were identified. At this point 2 additional views were then performed in order to target upon the region of calcifications. In this vicinity there were microcalcifications as well as macrocalcifications. We tried to target upon the smaller microcalcifications. Once the coordinates were obtained, the skin of the breast was then prepped and draped in the usual sterile manner. Local anesthetic was then injected into the area. A #11 blade was then used to make a small skin incision. Through this incision, the stereotactic biopsy probe was inserted to the correct depth. 2 views were then obtained to confirm appropriate positioning of the biopsy device. This was confirmed. Next circumferential suction biopsies were then obtained with good tissue sampling. Patient tolerated this portion of the procedure well. The retrieved tissue was then radiographed and confirmed presence of numerous microcalcifications. At this point a marking clip was then deployed. A post clip placement image was then obtained and confirmed position of the clip. The patient was then taken out of compression. Steri-Strip dressing was applied. She tolerated the procedure well. Surgical Findings: Micro calcifications of the right breast successfully removed. Complications Complications: Yes Complication Details: None Admit VTE Documentation VTE Present on Admission: No VTE Mechan Device Prophylaxis: None VTE Pharm Prophylaxis ordered?: No Reason prophylaxis not ordered: Treatment Not Indicated 01/06/25 1000 Cosigner Signature (if applicable): CC: LANA Mckay; Dr. Darrel Lacy MD Signed Normal [facility] Immunohistochemical Stainson 12-22-2024 Immunohistochemical Stains Patient Age/Sex Location Account Attending Physician AMAYA GARCIA 68/F LABSPEC [id number] Dr. Darrel Lacy MD Specimen: [id number] Received: 12/22/24 Status: PRETTY Katz Num: [id number] Spec Type: BREAST BX Subm Dr: Dr. Darrel Lacy MD HEADER OPERATION: Left breast biopsy PRE-OP DIAGNOSIS: Left breast nodule TISSUE SUBMITTED: A- Left breast tissue Ischemic Time: 1 minute Fixation Time: 11.5 hours MICROSCOPIC DIAGNOSIS A. 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 * Tubule 3, nuclear 2, mitosis 1 * ER: positive (95%, strong intensity). * CT: positive (25%, intermediate intensity). * [id number]: equivocal (2+) * [id number]: PENDING AT [facility], to be reported in an Addendum * Ki67q: proliferative index 25%. Note: Additional IHCs were performed. Ecadherin highlights the tumor cells, consistent with ductal origin. CK5/6 confirms the histologic impression of invasive carcinoma. ERG is negative for obvious lymphovascular invasion.. COMMENT Selected slides/images were reviewed in intradepartmental consultation by Dr Winifred Waters, [facility]. MICROSCOPIC DESCRIPTION Slides are reviewed. These tests were developed and their performance characteristics determined by [facility]. They may not have been cleared or approved by the U.S. Food and Drug Administration. The FDA has determined that such clearance or approval is not necessary. The above immunohistochemical/dualI SH markers are ordered and reviewed by the Pathologist. Patient Age/Sex Location Account Attending Physician AMAYA GARCIA 68/F LABSPEC [id number] Dr. Darrel Lacy MD GROSS DESCRIPTION A. Received in fixative is one container labeled with the patient's name and designated Left breast biopsy. The specimen consists of multiple fragments of yellow tissue that measures 1.8 x 0.7 x 0.1 cm. The specimen is totally submitted in one cassette. JS 12/22/2024 CPT:99727, 16413, 51606s6,13128w4 ADDENDUM Addendum 1 Entered: 02/04/25 This addendum is added to incorporate an outside pathology consultation report. The case was examined at [facility] (#[id number]) and the following diagnosis was rendered. A. Left breast, core biopsy: [id number]: Negative / not amplified HER2 SCORE REPORT: HER2 SCORE: NEGATIVE HER2/CEP17 RATIO: 1.1 HER2 COPY NUMBER/CELL: 3.3 Please see complete above mentioned consultation report in EMR Addendum Signed (signature on file) Dr. Iraida Chang MD 02/04/25 1218 Patient Age/Sex Location Account Attending Physician AMAYA GARCIA 68/F LABSPEC [id number] Dr. aDrrel Lacy MD Signed (signature on file) Dr. Iraida Chang MD 01/19/25 1600 Normal [facility] Comment on above: Performed By: #### P IM[facility] ####[facility] [id number] [place], [place], [address] Surgery Visit Reporton 12-22 Surgery Visit Report [facility] [address] [place] [address] OFFICE VISIT Date of Service: 12/22/24 MR#: [id number] Acct: [id number] Name: AMAYA GARCIA JASMYNE Rep #: [id number] : 1955 Provider: Dr. Darrel barron MD Age/Sex: 68/F Location: [facility] Status: Signed Intake Vital Signs 12/09/24 11:43 12/22/24 08:15 Height 5 ft 1 in 5 ft 1 in Weight: 192 lb BMI 36.2 BP 122/86 H Blood Pressure Location Rt brachial Position Sitting Respiration 17 Pulse 81 Pulse Source Monitor Temp 96.6 F L Temp Source Temporal Pulse Oximetry (%) 98 Oxygen Delivery Method room air Intake Visit Reasons: BIRADS 4 Chief Complaint: birads 4 Is patient in pain?: No Allergies No Known Allergies Allergy (Verified 12/22/24 08:16) Medications ???Medication ???Instructions ???Recorded ???Confirmed ???Type trazodone 150 mg tablet 150 mg PO QHS 01/10/17 12/22/24 Hi story escitalopram oxalate 10 mg tablet 10 mg PO DAILY 02/25/17 12/22/24 History rosuvastatin 40 mg tablet 40 mg PO DAILY 12/31/17 12/22/24 H istory cholecalciferol (vitamin D3) 25 1,000 unit PO DAILY 05/30/2012/22 History mcg (1,000 unit) tablet valacyclovir 500 mg tablet 500 mg PO DAILY 05/30/20 12/22/24 History cyclobenzaprine 5 mg tablet 5 mg PO DAILY PRN muscle spasm 04/2612/22/24 History meloxicam 15 mg tablet 15 mg PO QDAY 03/11/24 12/22/24 Hi story ezetimibe 10 mg tablet (Zetia) 10 mg PO DAILY #90 tabs 08/18/24 0 12/22/24 Rx Have you fallen in the past year?: No PFSH Medical History Abnormal mammogram of right breast Abnormal ultrasound of breast Left breast mass Urinary tract infection Wears glasses Cancer Alcohol use Diabetes Rheumatoid arthritis Bladder disease Cirrhosis Easy bruising History of IBS Former smoker BiPAP (biphasic positive airway pressure) dependence History of edema History of stress test IBS (irritable bowel syndrome) DOROTEO (obstructive sleep apnea) Obesity Vitamin D deficiency Breast cancer SOB (shortness of breath) Hyperlipidemia Diverticulitis Arthritis Surgical History History of shoulder surgery History of tonsillectomy and adenoidectomy History of tubal ligation History of lumpectomy History of section Family History Mother CVA (cerebral vascular accident) Arthritis Heart disease Father Hypertension Heart disease Diabetes Aunt Breast cancer Grandmother Breast cancer Other Angina at rest Asthma High cholesterol Myocardial infarction Social History Smoking Status: Former smoker Tobacco: How many years used: 20 how long ago did patient quit smokin, 1ppd second hand exposure: Yes alcohol intake: current alcohol intake frequency: a few times a month Alcohol type: beer substance use type: does not use what type of physical activity do you participate in: none HPI HPI HPI: Patient is a 68-year-old female who is being seen today for breast abnormalities on recent imaging. She initially noticed a lump in the lateral aspect of the left breast. This prompted an ultrasound as well as a mammogram of both breasts. Ultrasound of the left breast revealed a 4 x 2 mm hypoechoic lesion however what is palpable seems to be larger than 4 x 2 mm. She was also noted on mammograms to have an area of microcalcifications in the right breast. She presents today to discuss biopsies ROS General General: Yes breast cancer; No weight change, appetite, fatigue, colon cancer or weakness HEENT HEENT: No difficulty swallowing, eye injury, eye surgery, swollen glands or hoarseness Endo Endocrine: Yes diabetes mellitus; No thyroid disease, thyroid cancer, Hair loss, heat intolerance or cold intolerance Skin Skin: No rash or changing moles Breast Breast: Yes left breast lump, abnormal mammogram and abnormal US; No right breast lump, nipple discharge, breast pain or breast enlargement Musc Musculoskeletal: No back problems, arthritis, rheumatoid arthritis, gout or joint pain Cardio Cardiovascular: No murmur, pacemaker, heart disease, atrial fibrillation, high blood pressure, heart attack, heart stent, palpitations, shortness of breath with exertion or chest pain Psych Psychiatric: No depression, anxiety or hearing voices Resp Respiratory: No shortness of breath, Yes sleep apnea, No cough, No COPD, No asthma, No emphysema and No wheezing Gastro Gastrointestinal: No abdominal pain, No nausea or vomiting, No diarrhea, No constipation, No blood in stool, No acid reflux, No hemorrhoi (more content not included)... Normal 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 COMPARISON: Comparison is made with prior mammogram done earlier in the day. FINDINGS: LEFT: Left breast ultrasound was targeted to the lateral aspect of the left breast.. The palpable lump corresponds to a 4 mm x 2 mm x 4 mm hypoechoic irregular nodule at the 3 o'clock position of the breast at 8 cm from the nipple. Biopsy recommended. US/Breast Limited Unilateral IMPRESSION: BI-RADS 4: SUSPICIOUS ABNORMALITY. Follow-up code: Biopsy. Reading Location: [id number] CC: LANA Mckay; LANA Kim Claims Vice President: Signed Normal [facility] Breast imaging reportOrdered By: Douglas Hauser on 12-16-2024 Study report [facility] Imaging Services [address] [place], [place] [id number] DIAG MAMM W/CAD, BILAT MR#: [id number] Acct: [id number] Name: AMAYA GARCIA JASMYNE Rep #: [id number] : 1955 F 68 From: Ammon Hauser MD PCP: LANA Ramirez Status: REG CLI Study:DIAG MAMM W/CAD, BILAT Date of Exam: 12/16/24 Exam# [id number] Ordering Dr: Daysi Torres NP PROCEDURE: DIAG MAMM W/CAD, BILAT. Magnification spot views of the right breast as well astrue lateral views were obtained as well. REASON FOR EXAM: F, Age 68 y/o , LEFT BREAST MASS; H/O DCIS. Prior left lumpectomy. Palpable lump. Mother and grandmother with breast cancer. TECHNIQUE: Bilateral screening digital breast tomosynthesis with 2D and 3D images. Computeraided detection. COMPARISON: Prior exam(s) dating back to comparison is made with prior study dated July 29, 2024.. FINDINGS: The patient is status post lumpectomy in the anterior upper lateral retroareolarregion. Postoperative changes are seen. No mass lesion is seen at this time. Increased microcalcifications in the anterior upper lateral aspect of the right breast. Biopsy recommended. No suspicious masses, areas of developing architectural distortion, or suspicious calcifications. BI/DIAG MAMM W/CAD, BILAT IMPRESSION: Biopsy of the calcifications in the upper-outer quadrant of the right breast. Sonographic correlation of the palpable lump in the left breast. Category 4. Follow-up code: Sonographic follow-up for left breast mass. The patient will be notified of the results by letter. Reading Location: [id number] CC: LANA Mckay; LANA Kim ~ Claims Vice President: Signed [facility] DIAG MAMM W/CAD, BILATon DIAG MAMM W/CAD, BILAT [facility] Imaging Services [address] [place] [address] DIAG MAMM W/CAD, BILAT MR#: [id number] Acct: [id number] Name: AMAYA GARCIA JASMYNE Rep #: [id number] : 1955 F 68 From: Douglas bojorquez MD PCP: LANA Ramirez Status: REG CLI Study: DIAG MAMM W/CAD, BILAT Date of Exam: 12/16/24 Exam# [id number] Ordering Dr: Daysi Kim NP, NP PROCEDURE: DIAG MAMM W/CAD, BILAT. Magnification spot views of the right breast as well as true lateral views were obtained as well. REASON FOR EXAM: F, Age 68 y/o , LEFT BREAST MASS; H/O DCIS. Prior left lumpectomy. Palpable lump. Mother and grandmother with breast cancer. TECHNIQUE: Bilateral screening digital breast tomosynthesis with 2D and 3D images. Computer aided detection. COMPARISON: Prior exam(s) dating back to comparison is made with prior study dated July 29, 2024.. FINDINGS: The patient is status post lumpectomy in the anterior upper lateral retroareolar region. Postoperative changes are seen. No mass lesion is seen at this time. Increased microcalcifications in the anterior upper lateral aspect of the right breast. Biopsy recommended. No suspicious masses, areas of developing architectural distortion, or suspicious calcifications. BI/DIAG MAMM W/CAD, BILAT IMPRESSION: Biopsy of the calcifications in the upper-outer quadrant of the right breast. Sonographic correlation of the palpable lump in the left breast. Category 4. Follow-up code: Sonographic follow-up for left breast mass. The patient will be notified of the results by letter. Reading Location: [id number] CC: LANA Mckay; LANA Kim Claims Vice President: Signed Normal [facility] Oncology Visit Reporton Oncology Visit Report [facility] [address] [place] [address] OFFICE VISIT Date of Service: 12/09/24 1140 MR#: [id number] Acct: [id number] Name: AMAYA GARCIA JASMYNE Rep #: [id number] : 1955 From: Daysi Salcedo Age/Sex: 68/F Location: [facility] [place] Status: Signed HPI Subjective Date of Service 12/09/24 Chief Complaint Acute visit- left breast lump History of Present Illness 68-year-old woman with h/o left breast DCIS She underwent stereotactic breast biopsy on December 25, 2016 which showed DCIS, ER/CT positive. She had left breast lumpectomy and sentinel node biopsy on January 15, 2017 which showed DCIS with no wilton involvement. She completed radiation therapy to the left breast from 02/19/2017 to 04/14/2017. Tamoxifen April 15, 2017- February 2023. Interval History The patient is presenting to clinic for an acute visit at her request with c/o left breast lump. Noticed while bathing, non tender. Unchanged in size from when she identified two weeks ago. Denies any changes in the right breast. [facility] Medical History Urinary tract infection Wears glasses Cancer Alcohol use Diabetes Rheumatoid arthritis Bladder disease Cirrhosis Easy bruising History of IBS Former smoker BiPAP (biphasic positive airway pressure) dependence History of edema History of stress test IBS (irritable bowel syndrome) DOROTEO (obstructive sleep apnea) Obesity Vitamin D deficiency Breast cancer SOB (shortness of breath) Hyperlipidemia Diverticulitis Arthritis Surgical History History of shoulder surgery History of tonsillectomy and adenoidectomy History of tubal ligation History of lumpectomy History of section Family History Mother CVA (cerebral vascular accident) Arthritis Heart disease Father Hypertension Heart disease Diabetes Other Angina at rest Asthma Breast cancer High cholesterol Myocardial infarction Social History Smoking Status: Former smoker Tobacco: How many years used: 20 how long ago did patient quit smokin, 1ppd second hand exposure: Yes alcohol intake: current alcohol intake frequency: a few times a month Alcohol type: beer substance use type: does not use what type of physical activity do you participate in: none ROS ROS Narrative Negative except as documented in the interval HPI Intake Vital Signs 09/09/24 15:25 12/09/24 11:41 12/09/24 11:43 Height 5 ft 1 in 5 ft 1 in 5 ft 1 in Weight: 181 lb 2 oz 191 lb 1 oz BMI 34.2 36.1 BP 116/76 106/62 Blood Pressure Location Lt brachial Lt brachial Position Sitting Sitting Respiration 16 Pulse 74 68 Pulse Source Monitor Monitor Temp 97.5 F L Temperature Source Temporal Artery Pulse Oximetry (%) 97 98 Oxygen Delivery Method room air room air Intake Is patient in pain?: No Allergies No Known Allergies Allergy (Verified 12/09/24 11:41) Medications ???Medication ???Instructions ???Recorded ???Confirmed ???Type trazodone 150 mg tablet 150 mg PO QHS 01/10/17 12/09/24 Hi story escitalopram oxalate 10 mg tablet 10 mg PO DAILY 02/25/17 12/09/24 History rosuvastatin 40 mg tablet 40 mg PO DAILY 12/31/17 12/09/24 H istory cholecalciferol (vitamin D3) 25 1,000 unit PO DAILY 05/30/2012/09 History mcg (1,000 unit) tablet valacyclovir 500 mg tablet 500 mg PO DAILY 05/30/20 12/09/24 History cyclobenzaprine 5 mg tablet 5 mg PO DAILY PRN muscle spasm 04/2612/09/24 History meloxicam 15 mg tablet 15 mg PO QDAY 03/11/24 12/09/24 Hi story ezetimibe 10 mg tablet (Zetia) 10 mg PO DAILY #90 tabs 08/18/24 0 12/09/24 Rx Have you fallen in the past year?: No Exam Physical Exam Const alert, oriented x3 and no apparent distress General Appearance: comfortable HEENT normocephalic Eyes Eyes Narrative: wears glasses General Eye: normal appearance of both eyes Neck supple General: trachea midline Lymph Lymphatic: no lymphedema noted Chest Chest Narrative: Breast exam and lying supine. Right breast without palpable masses, skin normalities nipple discharge or retraction. Left breast shows well-healed scars, approximately 2 cm firm nodule at the 3 o'clock position, nontender. Also palpable sitting upright. Resp normal respiratory effort Cardio regular rate, regular rhythm, S1 normal heart sound and S2 normal heart sound GI soft to palpation, non-tender and non-distended Psych mental status grossly normal Coding Level of Care Code Off vis,est,level 4 Exam Problem Focused Diagnoses Left breast mass N63.20 Ductal carcinoma in situ (DCIS) (more content not included)... Normal [facility] Endocrinology Visit Reporton 09-09-2024 Endocrinology Visit Report [facility] [address] [place] [address] OFFICE VISIT Date of Service: 09/09/24 MR#: [id number] Acct: [id number] Name: AMAYA GARCIA Rep #: [id number] : 1955 Provider: LANA meyers Age/Sex: 68/F Location: [facility] [place] Status: Signed Intake Vital Signs 03/11/24 15:03 08/05/24 11:13 09/09/24 15:25 Height 5 ft 1 in 5 ft 1 in 5 ft 1 in Weight: 181 lb 2 oz BMI 34.2 BP 116/76 Blood Pressure Location Lt brachial Position Sitting Pulse 74 Pulse Source Monitor Pulse Oximetry (%) 97 Oxygen Delivery Method room air Intake Visit Reasons: 6 M FU Chief Complaint: f/u diabetes Allergies No Known Allergies Allergy (Verified 08/05/24 11:15) Medications ???Medication ???Instructions ???Recorded ???Confirmed ???Type trazodone 150 mg tablet 150 mg PO QHS 01/10/17 09/09/24 History escitalopram oxalate 10 mg tablet 10 mg PO DAILY 02/25/17 09/09/24 History rosuvastatin 40 mg tablet 40 mg PO DAILY 12/31/17 09/09/24 History cholecalciferol (vitamin D3) 25 1,000 unit PO DAILY 05/30/20 09/09/24 History mcg (1,000 unit) tablet valacyclovir 500 mg tablet 500 mg PO DAILY 05/30/20 09/09/24 History cyclobenzaprine 5 mg tablet 5 mg PO DAILY PRN muscle spasm 12/10/21 09/09/24 History meloxicam 15 mg tablet 15 mg PO QDAY 03/11/24 09/09/24 History ezetimibe 10 mg tablet (Zetia) 10 mg PO DAILY #90 tabs 08/18/24 09/09/24 Rx Have you fallen in the past year?: No PFSH Medical History Urinary tract infection Wears glasses Cancer Alcohol use Diabetes Rheumatoid arthritis Bladder disease Cirrhosis Easy bruising History of IBS Former smoker BiPAP (biphasic positive airway pressure) dependence History of edema History of stress test IBS (irritable bowel syndrome) DOROTEO (obstructive sleep apnea) Obesity Vitamin D deficiency Breast cancer SOB (shortness of breath) Hyperlipidemia Diverticulitis Arthritis Surgical History History of shoulder surgery History of tonsillectomy and adenoidectomy History of tubal ligation History of lumpectomy History of section Family History Mother CVA (cerebral vascular accident) Arthritis Heart disease Father Hypertension Heart disease Diabetes Other Angina at rest Asthma Breast cancer High cholesterol Myocardial infarction Social History Smoking Status: Former smoker Tobacco: How many years used: 20 how long ago did patient quit smokin, 1ppd second hand exposure: Yes alcohol intake: current alcohol intake frequency: a few times a month Alcohol type: beer substance use type: does not use what type of physical activity do you participate in: none HPI HPI Chief Complaint: f/u diabetes Details: AMAYA GARCIA, is a 68 F who presents to the office today for evaluation and management of diabetes. A1C today is 5.7%, consistent with previous appt on 03/11/24. She has gained 3 lbs. She is not currently on any diabetic medications. She was on GLP-1; however, she hit the donut hole and it became unaffordable. Reports she feels better off of medication d/t persistent, though manageable, nausea. BP is stable. Currently taking daily statin as well as ezetimibe. She takes vitamin D3 1,000 iu once daily. Labs are up to date and largely unremarkable. Denies any acute concerns. ROS Const Constitutional: Positive for other (ROS negative x10 body systems); No fatigue or weight change ENT ENT: No dizziness/vertigo Cardio Cardiology: No chest pain at rest, chest pain with exertion, shortness of breath or palpitations Skin Skin: No wounds Endo Endocrine: No fatigue or weight change Exam Const General: cooperative, healthy appearing, comfortable and no acute distress Nutritional Appearance: obese Orientation: alert, awake and oriented x3 HENMT Head: normal to inspection Ears: hearing grossly normal bilaterally Nose: external nose normal Face and sinus: normal facial exam Eyes General: appearance normal, both eyes and all related structures Alignment and Position: alignment normal Sclera: sclerae normal Neck Neck: normal visual inspection Carotids: normal carotid upstroke Chest Chest palpation inspection: normal inspection of the chest Resp Effort Inspection: normal respiratory effort, able to speak in complete sentences, symmetric chest movement, normal respiratory pattern, no audible wheezes and cough Auscultation: Bilateral: Clear to Auscultation Cardio Rate: regular rate Rhythm: regular rhythm Heart Sounds: S1 (more content not included)... Normal [facility] Absolute lymphocyte countOrd ered By: Brando Chacon on 08-05-2024 Lymphocytes Auto (Unsp spec) [#/Vol] 1.44 10*3/uL 0.83-4.51 [facility] Absolute neutrophil countOrd ered By: Brando Chacon on 08-05-2024 Neutrophils (Bld) [#/Vol] 4.4 10*3/uL 2.0-7.7 [facility] Albumin to globulin ratioOrd ered By: Brando Chacon on 08-05-2024 Albumin/Globulin [Mass ratio] 1.1 {ratio} 0.9-2.4 [facility] Automated lymphocyte count a s percentage of total leukocytesOrdered By: Brando Chacon on 08-05-2024 Lymphocytes/100 WBC Auto (Unsp spec) 22.0 % 19-41 [facility] Basophil percentageOrdered B y: Brando Chacon on 08-05-2024 Basophils/100 WBC (Bld) 0.9 % 0-1 [facility] Bilirubin, totalOrdered By: Brando Chacon on 08-05-2024 Bilirubin [Mass/Vol] 0.60 mg/dL 0.20-1.00 [facility] Comment on above: For patients on eltr ombopag therapy, use of Dimension [place] TBIL is not recommended. Blood urea nitrogen (BUN)/cr eatinine ratioOrdered By: Brando Chacon on 08-05-2024 Urea nitrogen/Creatinine [Mass ratio] 29.8 mg/mg High 10-20 [facility] Carbon dioxide measurementOr dered By: Brando Chacon on 08-05-2024 CO2 [Moles/Vol] 29.0 mmol/L 21.0-32.0 [facility] Chloride measurementOrdered By: Brando Chacon on 08-05-2024 Chloride [Moles/Vol] 106 mmol/L 98-107 [facility] Eosinophil percentageOrdered By: Brando Chacon on 08-05-2024 Eosinophils/100 WBC (Bld) 2.7 % 0-5 [facility] Erythrocyte distribution wid th ratioOrdered By: Brando Chacon on 08-05-2024 Erythrocyte distribution width (RBC) [Ratio] 13.1 % 11.6-14.6 [facility] Erythrocyte distribution wid th standard deviationOrdered By: Brando Chacon on 08-05-2024 Erythrocyte distribution width (RBC) [Ratio] 44.1 fl High 35.1-43.9 [facility] Glomerular filtration rate ( GFR) estimationOrdered By: Brando Chacon on 08-05-2024 GFR/1.73 sq M.predicted among non-blacks MDRD (S/P/Bld) [Vol rate/Area] 88 mL/min/{1.73_m2} >60 [facility] Comment on above: Non- GFR Calc Glucose measurementOrdered B y: Brando Chacon on 08-05-2024 Glucose [Mass/Vol] 105 mg/dL 74-106 [facility] Comment on above: Fasting Glucose resu lt from 100 to 125 mg/dL suggests IMPAIRED HOMEOSTASIS per A.D.A. criteria. Hematocrit Auto (Bld) [Volum e fraction]Ordered By: Brando Chacon on 08-05-2024 Hematocrit (Bld) [Volume fraction] 44.9 % 37-47 [facility] Hemoglobin measurementOrdere d By: Brando Chacon on 08-05-2024 Hemoglobin (Bld) [Mass/Vol] 14.8 g/dL 12.0-15.0 [facility] Immature granulocytes/100 WB C Auto (Bld)Ordered By: Brando Chacon on 08-05-2024 Immature granulocytes/100 WBC (Bld) 0.500 % 0.0-0.9 [facility] Comment on above: IG% - Immature Granu locytes (promyelocytes, myelocytes and metamyelocytes) > 1% indicates that a LEFT SHIFT is Present. Laboratory - Chemistry and C hemistry - challengeOrdered By: Brando Chacon on 08-05-2024 AST [Catalytic activity/Vol] 24 U/L 15-37 [facility] Lactate dehydrogenase (LDH) measurementOrdered By: Brando Chacon on 08-05-2024 LDH [Catalytic activity/Vol] 201 U/L 84-246 [facility] MCV (mean corpuscular volume ) determinationOrdered By: Brando Chacon on 08-05-2024 MCV (RBC) [Entitic vol] 91.4 fL 81-99 [facility] Mean corpuscular hemoglobin (MCH) determinationOrdered By: Brando Chacon on 08-05-2024 MCH (RBC) [Entitic mass] 30.1 pg 27.0-32.0 [facility] Mean corpuscular hemoglobin concentration (MCHC) determinationOrdered By: Brando Chacon on 08-05-2024 MCHC (RBC) [Mass/Vol] 33.0 g/dL 32-36 [facility] Mean platelet volume determi nationOrdered By: Brando Chacon on 08-05-2024 Platelet mean volume (Bld) [Entitic vol] 11.4 fL 6.2-12.0 [facility] Monocyte percentageOrdered B y: Brando Chacon on 08-05-2024 Monocytes/100 WBC (Bld) 7.3 % 0-10 [facility] Neutrophil percentageOrdered By: Brando Chacon on 08-05-2024 Neutrophils/100 WBC (Bld) 66.6 % 47-70 [facility] Nucleated red blood cell per centageOrdered By: Brando Chacon on 08-05-2024 Nucleated RBC/100 WBC (Bld) [Ratio] 0 % 0-5 [facility] Platelet countOrdered By: Debbie Chacon on 08-05-2024 Platelets (Bld) [#/Vol] 179 10*3/uL 150-450 [facility] Potassium measurementOrdered By: Brando Chacon on 08-05-2024 Potassium [Moles/Vol] 4.2 mmol/L 3.5-5.1 [facility] RBC Auto (Bld) [#/Vol]Ordere d By: Brando Chacon on 08-05-2024 RBC (Bld) [#/Vol] 4.91 10*6/uL 4.2-5.4 [facility] Serum anion gap measurementO rdered By: Brando Chacon on 08-05-2024 Anion gap [Moles/Vol] 2 mmol/L Low 5-15 [facility] Serum globulin measurementOr dered By: Brando Chacon on 08-05-2024 Globulin (S) [Mass/Vol] 3.4 g/dL 2.2-4.2 [facility] Serum or plasma alanine parker otransferase (ALT) measurementOrdered By: Brando Chacon on 08-05-2024 ALT [Catalytic activity/Vol] 41 U/L 13-56 [facility] Serum or plasma albumin duke urement (mass/volume)Ordered By: Brando Chacon on 08-05-2024 Albumin [Mass/Vol] 3.8 g/dL 3.2-5.0 [facility] Serum or plasma alkaline ernie sphatase measurementOrdered By: Brando Chacon on 08-05-2024 ALP [Catalytic activity/Vol] 110 U/L 45-117 [facility] Serum or plasma calcium duke urement (mass/volume)Ordered By: Brando Chacon on 08-05-2024 Calcium [Mass/Vol] 9.4 mg/dL 8.5-10.1 [facility] Serum or plasma creatinine m easurement (mass/volume)Ordered By: Brando Ines on 08-05-2024 Creatinine [Mass/Vol] 0.70 mg/dL 0.55-1.02 [facility] Comment on above: The validity of the calculated GFR & GFRAA in patients over 70 years has not been determined. Clinical correlation is essential. Serum or plasma urea nitroge n measurement (mass/volume)Ordered By: Brando Chacon on 08-05-2024 Urea nitrogen [Mass/Vol] 21 mg/dL High 7-18 [facility] Sodium levelOrdered By: Clarence Chacon on 08-05-2024 Sodium [Moles/Vol] 137 mmol/L 136-145 [facility] Total proteinOrdered By: Juma Chacon on 08-05-2024 Protein [Mass/Vol] 7.2 g/dL 6.4-8.2 [facility] White blood cell (WBC) count Ordered By: Brando Chacon on 08-05-2024 WBC (Bld) [#/Vol] 6.6 10*3/uL 4.4-11.0 [facility] Final Surgical Pathology Rep sumi 02-10-2024 Final Surgical Pathology Report . Pathology Reports Accession: Collected Date/Time: Received Date/Time: Pathologist: [id number] 02/06/2024 14:11 EDT 02/09/2024 09:35 EDT CLAUDIO [...] All parts labelled with patient name and [id number] Received in formalin labeled undesignated multiple wispy white and mucinous tissue fragments aggregating 0.1 cm. Given to cytology for processing. TS-1 Megan Estrada, Grossing Dog Behaviorist/ Dr. Claudio Monsalve, Pathologist Dictated by Megan Estrada MICROSCOPIC DESCRIPTION: The microscopic examination is performed, except in the case of Gross Only. Electronically Signed by Pathology Report verified by [facility] CLAUDIO MONSALVE Sign out Date: 02/10/2024 16:28 Performing Lab: [facility], [address] [place] [address] Pathology Dept Disclaimer If ancillary studies were utilized, the following Laboratory Developed Test (LDT) disclaimer will apply: Under CLIA requirements, [facility] is qualified to perform high complexity testing. For all ancillary stains, positive and negative controls stain appropriately. Performance characteristics of immunohistochemical and chromogenic in-situ hybridization tests have been determined by [facility]. These tests are used for clinical purposes, They should not be regarded as investigational or for research. Normal [facility] ([place]) Basophil percentageOrdered B y: Lester Mckay on 08-08-2023 Cholesterol [Mass/Vol] 149 mg/dL <200 [facility] Comment on above: <200 mg/dL Desirable 200-240 mg/dL Borderline >240 mg/dL High Risk Triglyceride [Mass/Vol] 110 mg/dL <199 [facility] Comment on above: The drugs N-Acetylcy steine and Metamizole may falsely depress this assay.Serum Triglycerides Reference Interval Normal <150 mg/dL Borderline high 150 - 199 mg/dL High 200 - 499 mg/dL Very High > or = 500 mg/dL No Panel InformationOrdered By: Lester Mckay on 08-08-2023 Urine Microalbumin/Creatini ne Ratio 13.0 mg/g CRE <30 [facility] Serum or plasma cholesterol in HDL measurement (mass/volume)Ordered By: Lester Mckay on 08-08-2023 Cholesterol in HDL [Mass/Vol] 48 mg/dL >40 [facility] Comment on above: The drugs N-Acetylcy steine and Metamizole may falsely depress this assay. Reference Range HDL <40 mg/dL Low HDL Cholesterol HDL >or= 60 mg/dL High HDL Cholesterol Serum or plasma cholesterol in VLDL measurement (mass/volume)Ordered By: Lester Mckay on 08-08-2023 Cholesterol in VLDL [Mass/Vol] 22 mg/dL 5-40 [facility] Serum or plasma low density lipoprotein (LDL) cholesterol measurement (mass/volume)Ordered By: Lester Mckay on 11-03-2023 Cholesterol in LDL [Mass/Vol] 79 mg/dL 0-130 [facility] Thin prep Papanicolaou smear with manual screeningOrdered By: Lester Mckay on 08-08-2023 Thin prep Papanicolaou smear with manual screening 21.6 mg/L NO RANGE EST. [facility] Urine creatinine measurement (mass/volume)Ordered By: Lester Mckay on 08-08-2023 Creatinine (U) [Mass/Vol] 166.00 mg/dL NO RANGE EST. [facility] Laboratory - Hematology and Cell countson 08-07-2023 HbA1c (Bld) [Mass fraction] 5.7 % 4.2-6.3 [facility] Basophil percentageOrdered B y: [place]g [place] on 05-01-2023 Bilirubin [Mass/Vol] 0.50 mg/dL 0.20-1.00 [facility] Comment on above: For patients on eltr ombopag therapy, use of [facility] [place] TBIL is not recommended. Chloride [Moles/Vol] 107 mmol/L 98-107 [facility] Glucose [Mass/Vol] 93 mg/dL 74-106 [facility] Potassium [Moles/Vol] 3.9 mmol/L 3.5-5.1 [facility] Protein [Mass/Vol] 7.1 g/dL 6.4-8.2 [facility] Sodium [Moles/Vol] 141 mmol/L 136-145 [facility] WBC (Bld) [#/Vol] 6.6 10*3/uL 4.4-11.0 [facility] Blood erythrocytes count (nu mber/volume)Ordered By: Sg South on 05-01-2023 RBC (Bld) [#/Vol] 4.78 10*6/uL 4.2-5.4 [facility] Blood hemoglobin measurement (mass/volume)Ordered By: Sg South on 05-01-2023 Hemoglobin (Bld) [Mass/Vol] 14.4 g/dL 12.0-15.0 [facility] Blood platelet mean volumeOr dered By: Sg South on 05-01-2023 Platelet mean volume (Bld) [Entitic vol] 11.6 fL 6.2-12.0 [facility] Determination of erythrocyte mean corpuscular volume (MCV)Ordered By: Sg South on 05-01-2023 MCV (RBC) [Entitic vol] 93.9 fL 81-99 [facility] Direct bilirubinOrdered By: Sg South on 05-01-2023 Bilirubin.direct [Mass/Vol] 0.15 mg/dL 0.00-0.30 [facility] Glucose Glucometer (BldC) [M ass/Vol]Ordered By: Chelsea Gilman on 05-01-2023 Glucose [Mass/Vol] 92 mg/dL 74-106 [facility] Comment on above: MANAGEMENT OF PATIEN T CARE PER NURSING PROTOCOL Hematocrit Auto (Bld) [Volum e fraction]Ordered By: Sg South on 05-01-2023 Hematocrit (Bld) [Volume fraction] 44.9 % 37-47 [facility] INR in Blood by Coagulation assayOrdered By: Sg South on 05-01-2023 INR Coag (Bld) [Relative time] 1.0 {INR} [facility] Laboratory - Chemistry and C hemistry - challengeOrdered By: Sg South on 05-01-2023 ALP [Catalytic activity/Vol] 107 U/L 45-117 [facility] ALT [Catalytic activity/Vol] 50 U/L 13-56 [facility] CO2 [Moles/Vol] 29.0 mmol/L 21.0-32.0 [facility] Globulin (S) [Mass/Vol] 3.6 g/dL 2.2-4.2 [facility] Urea nitrogen/Creatinine [Mass ratio] 26.0 mg/mg 10-20 [facility] Laboratory - CoagulationOrde red By: Sg South on 05-01-2023 aPTT Coag (Bld) [Time] 29.2 s 24.1-36.2 [facility] PT Coag (PPP) [Time] 12.9 s 11.7-14.9 [facility] Laboratory - Hematology and Cell countsOrdered By: Sg South on 05-01-2023 Erythrocyte distribution width (RBC) [Entitic vol] 45.1 fL 35.1-43.9 [facility] Erythrocyte distribution width (RBC) [Ratio] 13.1 % 11.6-14.6 [facility] MCH (RBC) [Entitic mass] 30.1 pg 27.0-32.0 [facility] MCHC Auto (RBC) [Mass/Vol]Or dered By: Sg South on 05-01-2023 MCHC (RBC) [Mass/Vol] 32.1 g/dL 32-36 [facility] No Panel InformationOrdered By: Sg South on 05-01-2023 Estimated Creatinine Clearance Calc 50.38 ml/min [facility] Estimated GFR (MDRD) Amer 87 mL/min >60 [facility] Comment on above: GFR Calc Estimated GFR (MDRD) Non-Af Amer 72 mL/min >60 [facility] Comment on above: Non- GFR Calc Platelets bldOrdered By: Jaky South on 05-01-2023 Platelets (Bld) [#/Vol] 164 10*3/uL 150-450 [facility] Serum or plasma albumin duke urement (mass/volume)Ordered By: Sg South on 05-01-2023 Albumin [Mass/Vol] 3.5 g/dL 3.2-5.0 [facility] Serum or plasma calcium duke urement (mass/volume)Ordered By: Sg South on 05-01-2023 Calcium [Mass/Vol] 9.3 mg/dL 8.5-10.1 [facility] Serum or plasma creatinine m easurement (mass/volume)Ordered By: Sg South on 05-01-2023 Creatinine [Mass/Vol] 0.84 mg/dL 0.55-1.02 [facility] Comment on above: The validity of the calculated GFR & GFRAA in patients over 70 years has not been determined. Clinical correlation is essential. Serum or plasma urea nitroge n measurement (mass/volume)Ordered By: Sg oSuth on 05-01-2023 Urea nitrogen [Mass/Vol] 22 mg/dL 7-18 [facility] Thin prep Papanicolaou smear with manual screeningOrdered By: Sg South on 05-01-2023 Thin prep Papanicolaou smear with manual screening 34 U/L 15-37 [facility] Thin prep Papanicolaou smear with manual screening 5 5-15 [facility] Whole blood hemoglobin A1c/t otal hemoglobin ratio (mass fraction)Ordered By: Sg South on 05-01-2023 HbA1c (Bld) [Mass fraction] 5.5 % 3.8-5.6 [facility] Comment on above: Normal < 5.7 % Predi abetic 5.7 - 6.4 % Diabetic >or= 6.5 % Please note range changes. Laboratory - Hematology and Cell countson 01-27-2023 HbA1c (Bld) [Mass fraction] 5.3 % 4.2-6.3 [facility] Culture, urineOrdered By: Dr Jessica Sharma on 12-29-2022 Bacteria identified Cx Nom (U) Positive [facility] Absolute lymphocyte countOrd ered By: Dr. Chacon on 12-03-2022 Lymphocytes Auto (Unsp spec) [#/Vol] 1.49 10*3/uL 0.83-4.51 [facility] Basophil percentageOrdered B y: Dr. Chacon on 12-03-2022 Basophils/100 WBC (Bld) 0.5 % 0-1 [facility] Bilirubin [Mass/Vol] 0.50 mg/dL 0.20-1.00 [facility] Comment on above: For patients on eltr ombopag therapy, use of [employer] [place] TBIL is not recommended. Chloride [Moles/Vol] 107 mmol/L 98-107 [facility] Eosinophils/100 WBC (Bld) 2.5 % 0-5 [facility] Glucose [Mass/Vol] 113 mg/dL 74-106 [facility] Comment on above: Fasting Glucose resu lt from 100 to 125 mg/dL suggests IMPAIRED HOMEOSTASIS per A.D.A. criteria. LDH [Catalytic activity/Vol] 148 U/L 84-246 [facility] Neutrophils (Bld) [#/Vol] 5.3 10*3/uL 2.0-7.7 [facility] Neutrophils/100 WBC (Bld) 69.0 % 47-70 [facility] Potassium [Moles/Vol] 4.2 mmol/L 3.5-5.1 [facility] Protein [Mass/Vol] 7.4 g/dL 6.4-8.2 [facility] Sodium [Moles/Vol] 141 mmol/L 136-145 [facility] WBC (Bld) [#/Vol] 7.6 10*3/uL 4.4-11.0 [facility] Blood erythrocytes count (nu mber/volume)Ordered By: Dr. Chacon on 12-03-2022 RBC (Bld) [#/Vol] 4.84 10*6/uL 4.2-5.4 [facility] Blood hemoglobin measurement (mass/volume)Ordered By: Dr. Chacon on 12-03-2022 Hemoglobin (Bld) [Mass/Vol] 14.7 g/dL 12.0-15.0 [facility] Blood lymphocytes/100 leukoc ytesOrdered By: Dr. Chacon on 12-03-2022 Lymphocytes/100 WBC (Bld) 19.5 % 19-41 [facility] Blood monocytes/100 leukocyt esOrdered By: Dr. Chacon on 12-03-2022 Monocytes/100 WBC (Bld) 8.1 % 0-10 [facility] Blood platelet mean volumeOr dered By: Dr. Chacon on 12-03-2022 Platelet mean volume (Bld) [Entitic vol] 11.9 fL 6.2-12.0 [facility] Determination of erythrocyte mean corpuscular volume (MCV)Ordered By: Dr. Chacon on 12-03-2022 MCV (RBC) [Entitic vol] 93.2 fL 81-99 [facility] Hematocrit Auto (Bld) [Volum e fraction]Ordered By: Dr. Chacon on 12-03-2022 Hematocrit (Bld) [Volume fraction] 45.1 % 37-47 [facility] Laboratory - Chemistry and C hemistry - challengeOrdered By: Dr. Chacon on 12-03-2022 ALP [Catalytic activity/Vol] 92 U/L 45-117 [facility] ALT [Catalytic activity/Vol] 62 U/L 13-56 [facility] CO2 [Moles/Vol] 29.0 mmol/L 21.0-32.0 [facility] Globulin (S) [Mass/Vol] 3.5 g/dL 2.2-4.2 [facility] Urea nitrogen/Creatinine [Mass ratio] 19.1 mg/mg 10-20 [facility] Laboratory - Hematology and Cell countsOrdered By: Dr. Chacon on 12-03-2022 Erythrocyte distribution width (RBC) [Entitic vol] 44.5 fL 35.1-43.9 [facility] Erythrocyte distribution width (RBC) [Ratio] 13.1 % 11.6-14.6 [facility] Immature granulocytes/100 WBC (Bld) 0.400 % 0.0-0.9 [facility] Comment on above: IG% - Immature Granu locytes (promyelocytes, myelocytes and metamyelocytes) > 1% indicates that a LEFT SHIFT is Present. MCH (RBC) [Entitic mass] 30.4 pg 27.0-32.0 [facility] Nucleated RBC/100 WBC (Bld) [Ratio] 0 % 0-5 [facility] MCHC Auto (RBC) [Mass/Vol]Or dered By: Dr. Chacon on 12-03-2022 MCHC (RBC) [Mass/Vol] 32.6 g/dL 32-36 [facility] No Panel InformationOrdered By: Dr. Chacon on 12-03-2022 Estimated Creatinine Clearance Calc 51.06 ml/min [facility] Estimated GFR (MDRD) Amer 88 mL/min >60 [facility] Comment on above: GFR Calc Estimated GFR (MDRD) Non-Af Amer 73 mL/min >60 [facility] Comment on above: Non- GFR Calc Platelets bldOrdered By: Dr. Chacon on 12-03-2022 Platelets (Bld) [#/Vol] 177 10*3/uL 150-450 [facility] Serum or plasma albumin duke urement (mass/volume)Ordered By: Dr. Chacon on 12-03-2022 Albumin [Mass/Vol] 3.9 g/dL 3.2-5.0 [facility] Serum or plasma albumin/glob ulin mass ratioOrdered By: Dr. Chacon on 12-03-2022 Albumin/Globulin [Mass ratio] 1.1 {ratio} 0.9-2.4 [facility] Serum or plasma calcium duke urement (mass/volume)Ordered By: Dr. Chacon on 12-03-2022 Calcium [Mass/Vol] 9.5 mg/dL 8.5-10.1 [facility] Serum or plasma creatinine m easurement (mass/volume)Ordered By: Dr. Chacon on 12-03-2022 Creatinine [Mass/Vol] 0.84 mg/dL 0.55-1.02 [facility] Comment on above: The validity of the calculated GFR & GFRAA in patients over 70 years has not been determined. Clinical correlation is essential. Serum or plasma urea nitroge n measurement (mass/volume)Ordered By: Dr. Chacon on 12-03-2022 Urea nitrogen [Mass/Vol] 16 mg/dL 7-18 [facility] Thin prep Papanicolaou smear with manual screeningOrdered By: Dr. Chacon on 12-03-2022 Thin prep Papanicolaou smear with manual screening 68 U/L 15-37 [facility] Thin prep Papanicolaou smear with manual screening 5 5-15 [facility] Culture, urineOrdered By: Me luli Leslie on 09-06-2022 Bacteria identified Cx Nom (U) Presumptive E. coli [facility] Basophil percentageOrdered B y: Elly Leslie on 09-04-2022 Basophil percentage 0 SEEN /hpf 0-5 [facility] Cholesterol [Mass/Vol] 213 mg/dL <200 [facility] Comment on above: <200 mg/dL Desirable 200-240 mg/dL Borderline >240 mg/dL High Risk Triglyceride [Mass/Vol] 225 mg/dL <199 [facility] Comment on above: The drugs N-Acetylcy steine and Metamizole may falsely depress this assay.Serum Triglycerides Reference Interval Normal <150 mg/dL Borderline high 150 - 199 mg/dL High 200 - 499 mg/dL Very High > or = 500 mg/dL Bilirubin Test strip Ql (U)O rdered By: Elly Leslie on 09-04-2022 Bilirubin Ql (U) Negative Negative [facility] Ketones Test strip Ql (U)Ord ered By: Elly Leslie on 09-04-2022 Ketones Ql (U) Negative Negative [facility] Laboratory - Hematology and Cell countson 09-04-2022 HbA1c (Bld) [Mass fraction] 6.5 % [facility] Mucus LM Ql (Urine sed)Order ed By: Elly Leslie on 09-04-2022 Mucus Ql (Urine sed) 0 SEEN /hpf [facility] Nitrite Test strip Ql (U)Ord ered By: Elly Leslie on 09-04-2022 Nitrite Ql (U) Positive Negative [facility] No Panel InformationOrdered By: Elly Leslie on 09-04-2022 Vitamin D 25-Hydroxy 39.9 ng/mL [facility] Comment on above: Vitamin D 25(OH) Sta tus Range Deficiency <20 ng/mL (50nmol/L) Insufficiency 20 - 30 ng/mL (50 - 75 nmol/L) Sufficiency 30 - 100 ng/mL (75 - 250 nmol/L) Toxicity >100 ng/mL (>250 nmol/L) Protein Test strip Ql (U)Ord ered By: Elly Leslie on 09-04-2022 Protein Ql (U) Negative Negative [facility] Serum or plasma cholesterol in HDL measurement (mass/volume)Ordered By: Elly Leslie on 09-04-2022 Cholesterol in HDL [Mass/Vol] 35 mg/dL >40 [facility] Comment on above: The drugs N-Acetylcy steine and Metamizole may falsely depress this assay. Reference Range HDL <40 mg/dL Low HDL Cholesterol HDL >or= 60 mg/dL High HDL Cholesterol Serum or plasma cholesterol in VLDL measurement (mass/volume)Ordered By: Elly Leslie on 09-04-2022 Cholesterol in VLDL [Mass/Vol] 45 mg/dL 5-40 [facility] Serum or plasma low density lipoprotein (LDL) cholesterol measurement (mass/volume)Ordered By: Elly Leslie on 09-04-2022 Cholesterol in LDL [Mass/Vol] 133 mg/dL 0-130 [facility] Squamous epithelial cells de tection in urine sediment by light microscopyOrdered By: Elly Leslie on 09-04-2022 Epithelial cells.squamous LM Ql (Urine sed) 0 SEEN /hpf 5-10 [facility] Urine blood detectionOrdered By: Elly Leslie on 09-04-2022 RBC Ql (U) Negative Negative [facility] RBC Ql (U) 0 SEEN /hpf 0-5 [facility] Urine clarityOrdered By: Nadege Leslie on 09-04-2022 Clarity (U) Clear Clear [facility] Urine color determinationOrd ered By: Elly Leslie on 09-04-2022 Color (U) Yellow Yellow [facility] Urine glucose detectionOrder ed By: Elly Leslie on 09-04-2022 Glucose Ql (U) Normal mg/dl Normal [facility] Urine leukocyte esterase det ection by dipstickOrdered By: Elly Leslie on 09-04-2022 Leukocyte esterase Test strip Ql (U) Negative Negative [facility] Urine pHOrdered By: Elly yeager on 09-04-2022 pH (U) 6.0 [pH] 5.0 - 8.0 [facility] Urine sediment bacteria coun t by microscopy (number/high power field)Ordered By: Elly Leslie on 09-04-2022 Bacteria LM.HPF (Urine sed) [#/Area] 1 /[HPF] None Seen [facility] Urine specific gravity measu rementOrdered By: Elly Leslie on 09-04-2022 Specific gravity (U) [Rel density] 1.020 1.002-1.03 0 [facility] Urobilinogen Auto test strip Ql (U)Ordered By: Elly Leslie on 09-04-2022 Urobilinogen Ql (U) Normal mg/dl Normal [facility] No Panel Informationon 06-28 Hepatitis B Surface Antibody Non-Reactive . [facility] Work Phone: Comment on above: Non Reactive: Incons istent with immunity, less than 10 mIU/mL Reactive: Consistent with immunity, greater than 9.9 mIU/mL Hepatitis C Antibody <0.1 s/co ratio 0.0-0.9 [facility] Work Phone: Hepatitis C Antibody Comment Comment . [facility] Work Phone: Comment on above: NegativeNot infected with HCV, unless recent infection issuspected or other evidence exists to indicate HCVinfection.Performed at: [facility] [employer] [id number] Director: Stevie Nelson PhD, Phone: [phone] Serum hepatitis B virus core antibody detectionon 06-28-2022 HBV core Ab Ql (S) Negative Negative [facility] Work Phone: Serum or plasma hepatitis B virus surface antigen detection by immunoassayon 06-28-2022 HBV surface Ag IA Ql Negative Negative [facility] Work Phone: Absolute lymphocyte counton 06-06-2022 Lymphocytes Auto (Unsp spec) [#/Vol] 1.64 10*3/uL 0.83-4.51 [facility] Work Phone: Basophil percentageon 2021 Basophils/100 WBC (Bld) 0.7 % 0-1 [facility] Work Phone: Bilirubin [Mass/Vol] 0.30 mg/dL 0.20-1.00 [facility] Work Phone: Comment on above: For patients on eltr ombopag therapy, use of [employer] TBIL is not recommended. Chloride [Moles/Vol] 106 mmol/L 98-107 [facility] Work Phone: Eosinophils/100 WBC (Bld) 3.6 % 0-5 [facility] Work Phone: Glucose [Mass/Vol] 135 mg/dL 74-106 [facility] Work Phone: Comment on above: Fasting Glucose resu lt greater than or equal to 126 mg/dL suggests DIABETES MELLITUS per A.D.A. criteria. Neutrophils (Bld) [#/Vol] 5.8 10*3/uL 2.0-7.7 [facility] Work Phone: Neutrophils/100 WBC (Bld) 68.2 % 47-70 [facility] Work Phone: Potassium [Moles/Vol] 4.3 mmol/L 3.5-5.1 [facility] Work Phone: Protein [Mass/Vol] 7.2 g/dL 6.4-8.2 [facility] Work Phone: Sodium [Moles/Vol] 141 mmol/L 136-145 [facility] Work Phone: WBC (Bld) [#/Vol] 8.4 10*3/uL 4.4-11.0 [facility] Work Phone: Blood erythrocytes count (nu mber/volume)on 06-06-2022 RBC (Bld) [#/Vol] 4.88 10*6/uL 4.2-5.4 [facility] Work Phone: Blood hemoglobin measurement (mass/volume)on 06-06-2022 Hemoglobin (Bld) [Mass/Vol] 14.8 g/dL 12.0-15.0 [facility] Work Phone: Blood lymphocytes/100 leukoc yteson 06-06-2022 Lymphocytes/100 WBC (Bld) 19.4 % 19-41 [facility] Work Phone: Blood monocytes/100 leukocyt eson 06-06-2022 Monocytes/100 WBC (Bld) 7.7 % 0-10 [facility] Work Phone: Blood platelet mean volumeon 06-06-2022 Platelet mean volume (Bld) [Entitic vol] 11.8 fL 6.2-12.0 [facility] Work Phone: Determination of erythrocyte mean corpuscular volume (MCV)on 06-06-2022 MCV (RBC) [Entitic vol] 93.4 fL 81-99 [facility] Work Phone: Hematocrit Auto (Bld) [Volum e fraction]on 06-06-2022 Hematocrit (Bld) [Volume fraction] 45.6 % 37-47 [facility] Work Phone: Laboratory - Chemistry and C hemistry - challengeon 06-06-2022 ALP [Catalytic activity/Vol] 103 U/L 45-117 [facility] Work Phone: ALT [Catalytic activity/Vol] 102 U/L 13-56 [facility] Work Phone: CO2 [Moles/Vol] 27.0 mmol/L 21.0-32.0 [facility] Work Phone: Globulin (S) [Mass/Vol] 3.8 g/dL 2.2-4.2 [facility] Work Phone: Urea nitrogen/Creatinine [Mass ratio] 26.7 mg/mg 10-20 [facility] Work Phone: Laboratory - Hematology and Cell countson 06-06-2022 Erythrocyte distribution width (RBC) [Entitic vol] 44.8 fL 35.1-43.9 [facility] Work Phone: Erythrocyte distribution width (RBC) [Ratio] 12.9 % 11.6-14.6 [facility] Work Phone: Immature granulocytes/100 WBC (Bld) 0.400 % 0.0-0.9 [facility] Work Phone: Comment on above: IG% - Immature Granu locytes (promyelocytes, myelocytes and metamyelocytes) > 1% indicates that a LEFT SHIFT is Present. MCH (RBC) [Entitic mass] 30.3 pg 27.0-32.0 [facility] Work Phone: Nucleated RBC/100 WBC (Bld) [Ratio] 0 % 0-5 [facility] Work Phone: MCHC Auto (RBC) [Mass/Vol]on 06-06-2022 MCHC (RBC) [Mass/Vol] 32.5 g/dL 32-36 [facility] Work Phone: No Panel Informationon 06-06 Estimated Creatinine Clearance Calc 60.40 ml/min [facility] Work Phone: Estimated GFR (MDRD) Amer 106 mL/min >60 [facility] Work Phone: Comment on above: GFR Calc Estimated GFR (MDRD) Non-Af Amer 88 mL/min >60 [facility] Work Phone: Comment on above: Non- GFR Calc Platelets bldon 06-06-2022 Platelets (Bld) [#/Vol] 187 10*3/uL 150-450 [facility] Work Phone: Serum or plasma albumin duke urement (mass/volume)on 06-06-2022 Albumin [Mass/Vol] 3.4 g/dL 3.2-5.0 [facility] Work Phone: Serum or plasma albumin/glob ulin mass ratioon 06-06-2022 Albumin/Globulin [Mass ratio] 0.9 {ratio} 0.9-2.4 [facility] Work Phone: Serum or plasma calcium duke urement (mass/volume)on 06-06-2022 Calcium [Mass/Vol] 9.0 mg/dL 8.5-10.1 [facility] Work Phone: Serum or plasma creatinine m easurement (mass/volume)on 06-06-2022 Creatinine [Mass/Vol] 0.71 mg/dL 0.55-1.02 [facility] Work Phone: Comment on above: The validity of the calculated GFR & GFRAA in patients over 70 years has not been determined. Clinical correlation is essential. Serum or plasma urea nitroge n measurement (mass/volume)on 06-06-2022 Urea nitrogen [Mass/Vol] 19 mg/dL 7-18 [facility] Work Phone: Thin prep Papanicolaou smear with manual screeningon 06-06-2022 Thin prep Papanicolaou smear with manual screening 122 U/L 15-37 [facility] Work Phone: Thin prep Papanicolaou smear with manual screening 8 5-15 [facility] Work Phone: Thin prep Papanicolaou smear with manual screening 177 U/L 84-246 [facility] Work Phone: Laboratory - Chemistry and C hemistry - challengeon 11-29-2020 Amylase [Catalytic activity/Vol] 280 U/L High 5-55 [facility] Erythrocyte distribution wid th standard deviationon 08-05-2017 Erythrocyte distribution width (RBC) [Entitic vol] 47.2 fL High 35.1-43.9 [facility] Laboratory - Hematology and Cell countson 08-05-2017 Erythrocyte distribution width (RBC) [Ratio] 13.8 % 11.6-14.6 [facility] Total cell counton 7 Cells counted [employer] (Bld/Tiss) [#] Not Reportable [facility] Office Visit: DOROTEO & lung nod uleon 07-14-2017 Documentation of current medications (procedure) Done Invalid Interpretation Code [facility] Work Phone: Protein mass conc Done Invalid Interpretation Code [facility] Work Phone: Tobacco smoking status NHIS Never Invalid Interpretation Code [facility] Work Phone: Tobacco smoking status NHIS Former smoker Invalid Interpretation Code [facility] Work Phone: Tobacco use [facility] Former smoker Invalid Interpretation Code [facility] Work Phone: Office Visit: New patient/OS Aon 06-18-2017 Documentation of current medications (procedure) Done Invalid Interpretation Code [facility] Work Phone: Fall risk assessment No Invalid Interpretation Code [facility] Work Phone: Protein mass conc Done [facility] Work Phone: Tobacco smoking status NHIS Never Invalid Interpretation Code [facility] Work Phone: Tobacco smoking status PRIS Former smoker [facility] Work Phone: Tobacco use [facility] Former smoker Invalid Interpretation Code [facility] Work Phone: HgA1C , Office ([phone])Ordere d By: Analilia Fast on 10-31-2015 HbA1c (Bld) [Mass fraction] 5.9 % Normal 4.6 - 7.1 [facility] Work Phone: HgA1C , Office ([phone])Ordere d By: Analilia Fast on 06-27-2015 HbA1c (Bld) [Mass fraction] 5.9 % Normal 4.6 - 7.1 [facility] Work Phone: HgA1C , Office ([phone])Ordere d By: Analilia Fast on 02-06-2015 HbA1c (Bld) [Mass fraction] 5.9 % Normal 4.6 - 7.1 [facility] Work Phone: Office Visiton 05-28-2012 Protein mass conc Done [facility] Work Phone: Tobacco smoking status NHIS former smoker [facility] Work Phone: HgA1C , Office ([phone])Ordere d By: Diana Hercules on 03-16-2012 HbA1c (Bld) [Mass fraction] 5.6 % Normal 4.6 - 7.1 [facility] Work Phone: CBC WITH MANUAL DIFF ([phone]) Ordered By: Maintenance Coordinator on 04-03-2010 Basophils (Bld) [#/Vol] 0.1 10*3/uL Normal 0.0-0.2 [facility] Work Phone: Comment on above: PATIENT NOT FASTINGP ERFORMED BY: CB [facility] Obpffz7844 [address] RoadDuin [place] [id number] Information: [id number] Basophils/100 WBC (Bld) 1 % Normal 0-3 [facility] Work Phone: Comment on above: PATIENT NOT FASTINGP ERFORMED BY: CB [facility] Jztbnp4410 C[address] RoadDuin [place] [id number] Information: [id number] Eosinophils (Bld) [#/Vol] 0.3 10*3/uL Normal 0.0-0.4 [facility] Work Phone: Comment on above: PATIENT NOT FASTINGP ERFORMED BY: CB [facility] Bokmji7661 [address] RoadDublin [place] [id number] Information: [id number] Eosinophils/100 WBC (Bld) 3 % Normal 0-7 [facility] Work Phone: Comment on above: PATIENT NOT FASTINGP ERFORMED BY: CB [facility] Ilfsfg6429 [address] RoadDublin [place] [id number] Information: [id number] Erythrocyte distribution width (RBC) [Ratio] 13.3 % Normal 11.7-15.0 [facility] Work Phone: Comment on above: PATIENT NOT FASTINGP ERFORMED BY: LIA Cotalin6370 [facility] [id number] Information: [id number] Hematocrit (Bld) [Volume fraction] 43.3 % Normal 34.0-44.0 [facility] Work Phone: Comment on above: PATIENT NOT FASTINGP ERFORMED BY: LIA [address] [id number] Information: [id number] Hemoglobin (Bld) [Mass/Vol] 14.9 g/dL Normal 11.5-15.0 [facility] Work Phone: Comment on above: PATIENT NOT FASTINGP ERFORMED BY: LIA [place] Jfaarp0413 [facility] [id number] Information: [id number] Immature granulocytes (Bld) [#/Vol] 0.0 10*3/uL Normal 0.0-0.1 [facility] Work Phone: Comment on above: PATIENT NOT FASTINGP ERFORMED BY: LIA [address] [id number] Information: [id number] Immature granulocytes/100 WBC (Bld) 0 % Normal 0-1 [facility] Work Phone: Comment on above: PATIENT NOT FASTINGP ERFORMED BY: LIA [place] 9189270 [facility] [id number] Information: [id number] Lymphocytes (Bld) [#/Vol] 2.7 10*3/uL Normal 0.7-4.5 [facility] Work Phone: Comment on above: PATIENT NOT FASTINGP ERFORMED BY: CB [facility]6370 [facility] [id number] Information: [id number] Lymphocytes/100 WBC (Bld) 29 % Normal 14-46 [facility] Work Phone: Comment on above: PATIENT NOT FASTINGP ERFORMED BY: LIA [place] Hdnblu[address] [id number] Information: [id number] MCH (RBC) [Entitic mass] 31.1 pg Normal 27.0-34.0 [facility] Work Phone: Comment on above: PATIENT NOT FASTINGP ERFORMED BY: LIA [place] Vpewtg[address] [id number] Information: [id number] MCHC (RBC) [Mass/Vol] 34.4 g/dL Normal 32.0-36.0 [facility]; [facility] Work Phone: Comment on above: PATIENT NOT FASTINGP ERFORMED BY: LIA [place] Pfjkvl1533 [facility] [id number] Information: [id number] MCV (RBC) [Entitic vol] 90 fL Normal 80-98 [facility] Work Phone: Comment on above: PATIENT NOT FASTINGP ERFORMED BY: LIA [place] 9189270 [facility] [id number] Information: [id number] Monocytes (Bld) [#/Vol] 0.7 10*3/uL Normal 0.1-1.0 [facility]; [facility] Work Phone: Comment on above: PATIENT NOT FASTINGP ERFORMED BY: LIA [place] Vhsxtg5311 [facility] [id number] Information: [id number] Monocytes/100 WBC (Bld) 8 % Normal 4-13 [facility]; [facility] Work Phone: Comment on above: PATIENT NOT FASTINGP ERFORMED BY: LIA ShenColina BarnardHvjyuf[address] [facility] [id number] Information: [id number] Neutrophils (Bld) [#/Vol] 5.4 10*3/uL Normal 1.8-7.8 [facility]; [facility] Work Phone: Comment on above: PATIENT NOT FASTINGP ERFORMED BY: LIA LabColina CotaYlmotx39[address] [facility] [id number] Information: [id number] Neutrophils/100 WBC (Bld) 59 % Normal 40-74 [facility]; [facility] Work Phone: Comment on above: PATIENT NOT FASTINGP ERFORMED BY: LIA Barnard6370 [facility] [id number] Information: [id number] Platelets (Bld) [#/Vol] 270 10*3/uL Normal 140-415 [facility]; [facility] Work Phone: Comment on above: PATIENT NOT FASTINGP ERFORMED BY: LIA Cotalin6370 [facility] [id number] Information: [id number] RBC (Bld) [#/Vol] 4.79 10*6/uL Normal 3.80-5.10 [facility]; [facility] Work Phone: Comment on above: PATIENT NOT FASTINGP ERFORMED BY: LIA [facility] Xcmyvj0335 [facility] [id number] Information: [id number] WBC (Bld) [#/Vol] 9.2 10*3/uL Normal 4.0-10.5 [facility]pre [facility]; [facility] Work Phone: Comment on above: PATIENT NOT FASTINGP ERFORMED BY: LIA [facility] Phcodz0[address] [facility] [id number] Information: [id number] METABOLIC PANEL, COMPREHENSI VE ([id number])Ordered By: Maintenance Coordinator on 04-03-2010 Albumin [Mass/Vol] 4.1 g/dL Normal 3.5-5.5 [facility]; [facility] Work Phone: Comment on above: PATIENT NOT FASTINGP ERFORMED BY: CB [facility] Zychhc0946 [address]Dublin [place] [id number] Albumin/Globulin [Mass ratio] 2.0 {ratio} Normal 1.1-2.5 [facility]; [facility] Work Phone: Comment on above: PATIENT NOT FASTINGP ERFORMED BY: CB [facility] Oqpjka4288 [address] RoadDublin [place] [id number] ALP [Catalytic activity/Vol] 78 U/L Normal 25-150 [facility]; [facility] Work Phone: Comment on above: PATIENT NOT FASTINGP ERFORMED BY: CB [facility] Ndkewx7419 [address] RoadDublin [place] [id number] ALT [Catalytic activity/Vol] 43 U/L Abnormal 0-40 [facility]; [facility] Work Phone: Comment on above: PATIENT NOT FASTINGP ERFORMED BY: CB [facility] Fcnfdy7466 [address] RoadDublin [place] [id number] AST [Catalytic activity/Vol] 26 U/L Normal 0-40 [facility]; [facility] Work Phone: Comment on above: PATIENT NOT FASTINGP ERFORMED BY: CB [facility] Znnezv5518 [address] RoadDublin [place] [id number] Bilirubin [Mass/Vol] 0.2 mg/dL Normal 0.0-1.2 [facility]; [facility] Work Phone: Comment on above: PATIENT NOT FASTINGP ERFORMED BY: CB [facility] Cnxoyh4261 [address] RoadDublin [place] [id number] Calcium [Mass/Vol] 9.2 mg/dL Normal 8.7-10.2 [facility]; [facility] Work Phone: Comment on above: PATIENT NOT FASTINGP ERFORMED BY: CB [facility] Zatplv8020 [address] RoadDublin [place] [id number] Chloride [Moles/Vol] 105 mmol/L Normal 97-108 Comp rehensive [facility]; [facility] Work Phone: Comment on above: PATIENT NOT FASTINGP ERFORMED BY: LIA [facility] Dthhbi2829 [facility] [id number] CO2 [Moles/Vol] 25 mmol/L Normal 20-32 [facility]; [facility] Work Phone: Comment on above: PATIENT NOT FASTINGP ERFORMED BY: [facility] Otilml2764 [facility] [id number] Creatinine [Mass/Vol] 0.80 mg/dL Normal 0.57-1.00 [facility] prehensive Internal Medicine; [facility] Work Phone: Comment on above: PATIENT NOT FASTINGP ERFORMED BY: Class [facility]Oz[facility] Ipzspl3532 [facility] [id number] GFR/1.73 sq M.predicted among blacks MDRD (S/P/Bld) [...] found [email or web address]. PATIENT NOT FASTINGP ERFORMED BY: [facility] Adsije3296 [facility] [id number] GFR/1.73 sq M.predicted MDRD (S/P/Bld) [Vol rate/Area] mL/min/{1.73_m2} Normal [facility]; [facility] Work Phone: Comment on above: PATIENT NOT FASTINGP ERFORMED BY: [facility] Pjdmfi3672 [facility] [id number] Globulin (S) [Mass/Vol] 2.1 g/dL Normal 1.5-4.5 [facility]; [facility] Work Phone: Comment on above: PATIENT NOT FASTINGP ERFORMED BY: LIA [facility] Zywmdm8077 [address] RoadDublin [place] [id number] Glucose [Mass/Vol] 90 mg/dL Normal 65-99 [facility]; [facility] Work Phone: Comment on above: PATIENT NOT FASTINGP ERFORMED BY: CB [facility] Hxulqc9999 [address] RoadDublin [place] [id number] Potassium [Moles/Vol] 3.7 mmol/L Normal 3.5-5.2 [facility]; [facility] Work Phone: Comment on above: PATIENT NOT FASTINGP ERFORMED BY: CB [facility] Cosbbi6397 [address] RoadDublin [place] [id number] Protein [Mass/Vol] 6.2 g/dL Normal 6.0-8.5 [facility]; [facility] Work Phone: Comment on above: PATIENT NOT FASTINGP ERFORMED BY: CB [facility] Knhdef3456 [address] RoadDublin [place] [id number] Sodium [Moles/Vol] 141 mmol/L Normal 135-145 [facility]; [facility] Work Phone: Comment on above: PATIENT NOT FASTINGP ERFORMED BY: CB [facility] Apktkn5658 [address] RoadDublin [place] [id number] Urea nitrogen [Mass/Vol] 23 mg/dL Normal 5-26 [facility]; [facility] Work Phone: Comment on above: PATIENT NOT FASTINGP ERFORMED BY: CB [facility] Yuvsuj8054 [address] RoadDublin [place] [id number] Urea nitrogen/Creatinine [Mass ratio] 29 mg/mg Abnormal 8-27 [facility]; [facility] Work Phone: Comment on above: PATIENT NOT FASTINGP ERFORMED BY: CB [facility] Onmhgk5170 [address] RoadDublin [place] [id number] PT (Prothrobim Time) (06696) Ordered By: Maintenance Coordinator on 04-03-2010 INR Coag (PPP) [Relative time] 1.0 {INR} Normal 0.8-1.2 [facility]; [facility] Work Phone: Comment on above: Reference interval i s for non-anticoagulated patients..Suggested INR therapeutic range for Vitamin Kantagonist therapy:Standard Dose (moderate intensitytherapeutic range): 2.0 - 3.0Higher intensity therapeutic range 2.5 - 3.5 PATIENT NOT FASTINGP ERFORMED BY: Class MessengerSaint Mary'S Hospital Of Blue SpringsBpmzjj14[address] [facility] [id number] PT Coag (PPP) [Time] 10.0 s Normal 8.7-11.5 [facility]; [facility] Work Phone: Comment on above: PATIENT NOT FASTINGP ERFORMED BY: [facility]-SYNARC Tjydig7804 CamachoTDXSandhills Regional Medical Center [id number] PTT (Activated Partial Throm boplastin Time) ([id number])Ordered By: Maintenance Coordinator on 04-03-2010 aPTT Coag (PPP) [Time] 26 s Normal 24-33 [facility]; [facility] Work Phone: Comment on above: This test has not be en validated for monitoring unfractionated heparintherapy. aPTT-based therapeutic ranges for unfractionated heparintherapy have not been established. For general guidelines onHeparin monitoring, refer to the [facility] Directory of Services. PATIENT NOT FASTINGP ERFORMED BY: [facility]6370 [facility] [id number] Culture, urine Bacteria identified Cx Nom (U) Escherichia coli [facility] Work Phone: Bacteria identified Cx Nom (U) Presumptive E. coli [facility] Work Phone: Vital Signs Date Time Vital Sign Value Performing Clinician Facility 06-23-2025 10:03-0400 Body height 154.94 cm Lester Mckay COMPUTER RECYCLING WORKER-C Work Phone: [facility] 06-23-2025 10:03-0400 Body mass index (BMI) [Ratio] 37.5 kg/m2 Lester Maria Isabel COMPUTER RECYCLING WORKER-C Work Phone: [facility] 06-23-2025 10:03-0400 Body temperature 98.1 [degF] Lester Maria Isabel COMPUTER RECYCLING WORKER-C Work Phone: [facility] 06-23-2025 10:03-0400 Body weight 90.26 kg Lester Maria Isabel COMPUTER RECYCLING WORKER-C Work Phone: [facility] 06-23-2025 10:03-0400 Diastolic blood pressure 75 mm[Hg] Lester Maria Isabel COMPUTER RECYCLING WORKER-C Work Phone: [facility] 06-23-2025 10:03-0400 Heart rate 69 /min Lester Maria Isabel COMPUTER RECYCLING WORKER-C Work Phone: [facility] 06-23-2025 10:03-0400 Respiratory rate 16 /min Lester Maria Isabel COMPUTER RECYCLING WORKER-C Work Phone: [facility] 06-23-2025 10:03-0400 SaO2% (BldA) [Mass fraction] 98 % Lester Maria Isabel COMPUTER RECYCLING WORKER-C Work Phone: [facility] 06-23-2025 10:03-0400 Systolic blood pressure 112 mm[Hg] Lester Maria Isabel COMPUTER RECYCLING WORKER-C Work Phone: [facility] 05-30-2025 10:49-0400 Body height 154.94 cm Lester Maria Isabel COMPUTER RECYCLING WORKER-C Work Phone: [facility] 05-30-2025 10:49-0400 Body mass index (BMI) [Ratio] 37.2 kg/m2 Lester Maria Isabel COMPUTER RECYCLING WORKER-C Work Phone: [facility] 05-30-2025 10:49-0400 Body temperature 97.1 [degF] Lester Maria Isabel COMPUTER RECYCLING WORKER-C Work Phone: [facility] 05-30-2025 10:49-0400 Body weight 89.38 kg Lester Maria Isabel COMPUTER RECYCLING WORKER-C Work Phone: [facility] 05-30-2025 10:49-0400 Diastolic blood pressure 76 mm[Hg] Lester Mckay COMPUTER RECYCLING WORKER-C Work Phone: [facility] 05-30-2025 10:49-0400 Heart rate 70 /min Lester Mckay COMPUTER RECYCLING WORKER-C Work Phone: [facility] 05-30-2025 10:49-0400 Respiratory rate 18 /min Lester Mckay COMPUTER RECYCLING WORKER-C Work Phone: [facility] 05-30-2025 10:49-0400 SaO2% (BldA) [Mass fraction] 100 % Lester Mckay COMPUTER RECYCLING WORKER-C Work Phone: [facility] 05-30-2025 10:49-0400 Systolic blood pressure 124 mm[Hg] Lester Mckay COMPUTER RECYCLING WORKER-C Work Phone: [facility] 05-19-2025 09:17-0400 Body height 159 cm Claudio Orozco MD Work Phone: [facility] [employer] [facility] 05-19-2025 09:17-0400 Body height 158.75 cm Claudio Orozco MD Work Phone: [facility] [employer] [facility] 05-19-2025 09:17-0400 Body mass index (BMI) [Ratio] 35.22 kg/m2 Claudio Orozco MD Work Phone: [facility] [employer] [facility] 05-19-2025 09:17-0400 Body weight 89 kg Claudio Orozco MD Work Phone: [facility] [employer] [facility] 05-19-2025 09:17-0400 Body weight 88.45 kg Claudio Orozco MD Work Phone: [facility] [employer] [facility] 05-19-2025 09:17-0400 BP SITE #1 Claudio Orozco MD Work Phone: [facility] [employer] [facility] 05-19-2025 09:17-0400 Diastolic blood pressure 86 mm[Hg] Claudio Orozco MD Work Phone: [facility] [employer] [facility] 05-19-2025 09:17-0400 Heart rate 66 /min Claudio Orozco MD Work Phone: [facility] [employer] [facility] 05-19-2025 09:17-0400 HGHTCHNVIS Claudio Orozco MD Work Phone: [facility] [employer] [facility] 05-19-2025 09:17-0400 Systolic blood pressure 138 mm[Hg] Claudio Orozco MD Work Phone: [facility] [employer] [facility] 05-19-2025 09:17-0400 VITALSDONE Claudio Orozco MD Work Phone: [facility] [employer] [facility] 05-16-2025 08:01-0400 Body mass index (BMI) [Ratio] 36.6 kg/m2 Lester Mckay COMPUTER RECYCLING WORKER-C Work Phone: [facility] 05-16-2025 08:01-0400 Body temperature 97.4 [degF] Lester Maria Isabel COMPUTER RECYCLING WORKER-C Work Phone: [facility] 05-16-2025 08:01-0400 Body weight 87.99 kg Lester Holtgar COMPUTER RECYCLING WORKER-C Work Phone: [facility] 05-16-2025 08:01-0400 Diastolic blood pressure 85 mm[Hg] Lester Mckay COMPUTER RECYCLING WORKER-C Work Phone: [facility] 05-16-2025 08:01-0400 Heart rate 78 /min Lester Maria Isabel COMPUTER RECYCLING WORKER-C Work Phone: [facility] 05-16-2025 08:01-0400 Respiratory rate 18 /min Lester Mckay COMPUTER RECYCLING WORKER-C Work Phone: [facility] 05-16-2025 08:01-0400 SaO2% (BldA) [Mass fraction] 94 % Lester Mckay COMPUTER RECYCLING WORKER-C Work Phone: [facility] 05-16-2025 08:01-0400 Systolic blood pressure 132 mm[Hg] Lester Maria Isabel COMPUTER RECYCLING WORKER-C Work Phone: [facility] 05-13-2025 10:37-0400 Body height 154.94 cm Lester Maria Isabel COMPUTER RECYCLING WORKER-C Work Phone: [facility] 05-13-2025 10:37-0400 Body mass index (BMI) [Ratio] 36.2 kg/m2 Lester Maria Isabel COMPUTER RECYCLING WORKER-C Work Phone: [facility] 05-13-2025 10:37-0400 Body weight 87.08 kg Lester Maria Isabel COMPUTER RECYCLING WORKER-C Work Phone: [facility] 05-13-2025 10:37-0400 Diastolic blood pressure 85 mm[Hg] Lester Maria Isabel COMPUTER RECYCLING WORKER-C Work Phone: [facility] 05-13-2025 10:37-0400 Heart rate 81 /min Lester Maria Isabel COMPUTER RECYCLING WORKER-C Work Phone: [facility] 05-13-2025 10:37-0400 Systolic blood pressure 144 mm[Hg] Lester Maria Isabel COMPUTER RECYCLING WORKER-C Work Phone: [facility] 03-10-2025 09:32-0400 Body height 154.94 cm Lester Maria Isabel COMPUTER RECYCLING WORKER-C Work Phone: [facility] 03-10-2025 09:32-0400 Body mass index (BMI) [Ratio] 37.2 kg/m2 Lester Maria Isabel COMPUTER RECYCLING WORKER-C Work Phone: [facility] 03-10-2025 09:32-0400 Body weight 89.35 kg Lester Maria Isabel COMPUTER RECYCLING WORKER-C Work Phone: [facility] 03-10-2025 09:32-0400 Diastolic blood pressure 79 mm[Hg] Lester Maria Isabel COMPUTER RECYCLING WORKER-C Work Phone: [facility] 03-10-2025 09:32-0400 Heart rate 78 /min Lester Maria Isabel COMPUTER RECYCLING WORKER-C Work Phone: [facility] 03-10-2025 09:32-0400 SaO2% (BldA) [Mass fraction] 96 % Lester Mckay COMPUTER RECYCLING WORKER-C Work Phone: [facility] 03-10-2025 09:32-0400 Systolic blood pressure 117 mm[Hg] Lesterjazzmine Mckay COMPUTER RECYCLING WORKER-C Work Phone: [facility] 02-10-2025 09:57-0400 Body height 154.94 cm Lester Mckay COMPUTER RECYCLING WORKER-C Work Phone: [facility] 02-10-2025 09:57-0400 Body mass index (BMI) [Ratio] 36.6 kg/m2 Lester Mckay COMPUTER RECYCLING WORKER-C Work Phone: [facility] 02-10-2025 09:57-0400 Body temperature 97.8 [degF] Lester Mckay COMPUTER RECYCLING WORKER-C Work Phone: [facility] 02-10-2025 09:57-0400 Body weight 88.02 kg Lester Mckay COMPUTER RECYCLING WORKER-C Work Phone: [facility] 02-10-2025 09:57-0400 Diastolic blood pressure 92 mm[Hg] Lester Mckay COMPUTER RECYCLING WORKER-C Work Phone: [facility] 02-10-2025 09:57-0400 Heart rate 79 /min Lester Holtgar COMPUTER RECYCLING WORKER-C Work Phone: [facility] 02-10-2025 09:57-0400 Respiratory rate 16 /min Lester Holtgar COMPUTER RECYCLING WORKER-C Work Phone: [facility] 02-10-2025 09:57-0400 SaO2% (BldA) [Mass fraction] 98 % Lester Mckay COMPUTER RECYCLING WORKER-C Work Phone: [facility] 02-10-2025 09:57-0400 Systolic blood pressure 124 mm[Hg] Lester Mckay COMPUTER RECYCLING WORKER-C Work Phone: [facility] 01-27-2025 09:38-0400 Body mass index (BMI) [Ratio] 36.7 kg/m2 Lester Maria Isabel COMPUTER RECYCLING WORKER-C Work Phone: [facility] 01-27-2025 09:38-0400 Body temperature 98.5 [degF] Lester Maria Isabel COMPUTER RECYCLING WORKER-C Work Phone: [facility] 01-27-2025 09:38-0400 Body weight 88.11 kg Lester Maria Isabel COMPUTER RECYCLING WORKER-C Work Phone: [facility] 01-27-2025 09:38-0400 Diastolic blood pressure 86 mm[Hg] Lester Maria Isabel COMPUTER RECYCLING WORKER-C Work Phone: [facility] 01-27-2025 09:38-0400 Heart rate 77 /min Lester Maria Isabel COMPUTER RECYCLING WORKER-C Work Phone: [facility] 01-27-2025 09:38-0400 Respiratory rate 16 /min Lester Maria Isabel COMPUTER RECYCLING WORKER-C Work Phone: [facility] 01-27-2025 09:38-0400 SaO2% (BldA) [Mass fraction] 98 % Lester Maria Isabel COMPUTER RECYCLING WORKER-C Work Phone: [facility] 01-27-2025 09:38-0400 Systolic blood pressure 135 mm[Hg] Lester Maria Isabel COMPUTER [employer]YCLING WORKER[employer]C Work Phone: [facility] 01-19-2025 15:12-0400 Body mass index (BMI) [Ratio] 36.2 kg/m2 Lester Maria Isabel COMPUTER RECYCLING WORKER-C Work Phone: [facility] 01-19-2025 15:12-0400 Body temperature 97.6 [degF] Lester Maria Isabel COMPUTER RECYCLING WORKER-C Work Phone: [facility] 01-19-2025 15:12-0400 Body weight 87.08 kg Lester Maria Isabel COMPUTER RECYCLING WORKER-C Work Phone: [facility] 01-19-2025 15:12-0400 Diastolic blood pressure 83 mm[Hg] Lester Maria Isabel COMPUTER RECYCLING WORKER-C Work Phone: [facility] 01-19-2025 15:12-0400 Heart rate 80 /min Lester Maria Isabel COMPUTER RECYCLING WORKER-C Work Phone: [facility] 01-19-2025 15:12-0400 Respiratory rate 18 /min Lester Maria Isabel COMPUTER RECYCLING WORKER-C Work Phone: [facility] 01-19-2025 15:12-0400 SaO2% (BldA) [Mass fraction] 99 % Lester Maria Isabel COMPUTER RECYCLING WORKER-C Work Phone: [facility] 01-19-2025 15:12-0400 Systolic blood pressure 118 mm[Hg] Lester Maria Isabel COMPUTER RECYCLING WORKER-C Work Phone: [facility] 12-22-2024 08:15-0400 Body height 154.94 cm Lester Maria Isbael COMPUTER RECYCLING WORKER-C Work Phone: [facility] 12-22-2024 08:15-0400 Body mass index (BMI) [Ratio] 36.2 kg/m2 Lester Maria Isabel COMPUTER RECYCLING WORKER-C Work Phone: [facility] 12-22-2024 08:15-0400 Body temperature 96.6 [degF] Lester Maria Isabel COMPUTER RECYCLING WORKER-C Work Phone: [facility] 12-22-2024 08:15-0400 Body weight 87.08 kg Lester Maria Isabel COMPUTER RECYCLING WORKER-C Work Phone: [facility] 12-22-2024 08:15-0400 Diastolic blood pressure 86 mm[Hg] Lester Maria Isabel COMPUTER RECYCLING WORKER-C Work Phone: [facility] 12-22-2024 08:15-0400 Heart rate 81 /min Lester Maria Isabel COMPUTER RECYCLING WORKER-C Work Phone: [facility] 12-22-2024 08:15-0400 Respiratory rate 17 /min Lester Maria Isabel COMPUTER RECYCLING WORKER-C Work Phone: [facility] 12-22-2024 08:15-0400 SaO2% (BldA) [Mass fraction] 98 % Lester Maria Isabel COMPUTER RECYCLING WORKER-C Work Phone: [facility] 12-22-2024 08:15-0400 Systolic blood pressure 122 mm[Hg] Lester Maria Isabel COMPUTER RECYCLING WORKER-C Work Phone: [facility] 12-09-2024 11:41-0500 Body mass index (BMI) [Ratio] 36.1 kg/m2 Lester Maria Isabel COMPUTER RECYCLING WORKER-C Work Phone: [facility] 12-09-2024 11:41-0500 Body temperature 97.5 [degF] Lester Maria Isabel COMPUTER RECYCLING WORKER-C Work Phone: [facility] 12-09-2024 11:41-0500 Body weight 86.66 kg Lester Maria Isabel COMPUTER RECYCLING WORKER-C Work Phone: [facility] 12-09-2024 11:41-0500 Diastolic blood pressure 62 mm[Hg] Lester Maria Isabel COMPUTER RECYCLING WORKER-C Work Phone: [facility] 12-09-2024 11:41-0500 Heart rate 68 /min Lester Maria Isabel COMPUTER RECYCLING WORKER-C Work Phone: [facility] 12-09-2024 11:41-0500 Respiratory rate 16 /min Lester Maria Isabel COMPUTER RECYCLING WORKER-C Work Phone: [facility] 12-09-2024 11:41-0500 SaO2% (BldA) [Mass fraction] 98 % Lester Maria Isabel COMPUTER RECYCLING WORKER-C Work Phone: [facility] 12-09-2024 11:41-0500 Systolic blood pressure 106 mm[Hg] Lester Maria Isabel COMPUTER RECYCLING WORKER-C Work Phone: [facility] 09-09-2024 15:25-0500 Body mass index (BMI) [Ratio] 34.2 kg/m2 Lester Maria Isabel COMPUTER RECYCLING WORKER-C Work Phone: [facility] 09-09-2024 15:25-0500 Body weight 82.15 kg Lester Maria Isabel COMPUTER RECYCLING WORKER-C Work Phone: [facility] 09-09-2024 15:25-0500 Diastolic blood pressure 76 mm[Hg] Lester Mckay COMPUTER RECYCLING WORKER-C Work Phone: [facility] 09-09-2024 15:25-0500 Heart rate 74 /min Lester Mckay COMPUTER RECYCLING WORKER-C Work Phone: [facility] 09-09-2024 15:25-0500 SaO2% (BldA) [Mass fraction] 97 % Lesterjazzmine Mckay COMPUTER RECYCLING WORKER-C Work Phone: [facility] 09-09-2024 15:25-0500 Systolic blood pressure 116 mm[Hg] Lesterjazzmine Mckay COMPUTER RECYCLING WORKER-C Work Phone: [facility] 08-07-2023 09:11-0400 Body height 154.[address] Freida Napier Work Phone: [facility] 08-07-2023 09:11-0400 Body mass index (BMI) [Ratio] 34.9 kg/m2 Dr. Freida Napier Work Phone: [facility] 08-07-2023 09:11-0400 Body temperature 97.8 [degF] Dr. Freida Napier Work Phone: [facility] 08-07-2023 09:11-0400 Body weight 83.[address] Freida Napier Work Phone: [facility] 08-07-2023 09:11-0400 Diastolic blood pressure 78 mm[Hg] Dr. Freida Napier Work Phone: [facility] 08-07-2023 09:11-0400 Heart rate 68 /min Dr. Freida Napier Work Phone: [facility] 08-07-2023 09:11-0400 Respiratory rate 16 /min Dr. Freida Napier Work Phone: [facility] 08-07-2023 09:11-0400 SaO2% (BldA) [Mass fraction] 97 % Dr. Freida Napier Work Phone: [facility] 08-07-2023 09:11-0400 Systolic blood pressure 112 mm[Hg] Dr. Freida Napier Work Phone: [facility] 07-31-2023 13:59-0400 Body mass index (BMI) [Ratio] 34.4 kg/m2 Dr. Freida Napier Work Phone: [facility] 07-31-2023 13:59-0400 Body temperature 98.2 [degF] Dr. Freida Napier Work Phone: [facility] 07-31-2023 13:59-0400 Body weight 82.[address] Freida Napier Work Phone: [facility] 07-31-2023 13:59-0400 Diastolic blood pressure 82 mm[Hg] Dr. Freida Napier Work Phone: [facility] 07-31-2023 13:59-0400 Heart rate 68 /min Dr. Freida Napier Work Phone: [facility] 07-31-2023 13:59-0400 Respiratory rate 18 /min Dr. Freida Napier Work Phone: [facility] 07-31-2023 13:59-0400 SaO2% (BldA) [Mass fraction] 97 % Dr. Freida Napier Work Phone: [facility] 07-31-2023 13:59-0400 Systolic blood pressure 126 mm[Hg] Dr. Freida Napier Work Phone: [facility] 05-01-2023 08:17-0400 Body temperature 98.1 [degF] Dr. Mike Shafer Work Phone: [facility] 05-01-2023 08:17-0400 Diastolic blood pressure 77 mm[Hg] Dr. Mike Shafer Work Phone: [facility] 05-01-2023 08:17-0400 Heart rate 70 /min Dr. Mike Shafer Work Phone: [facility] 05-01-2023 08:17-0400 Respiratory rate 16 /min Dr. Mike Shafer Work Phone: [facility] 05-01-2023 08:17-0400 SaO2% (BldA) [Mass fraction] 94 % Dr. Mike Shafer Work Phone: [facility] 05-01-2023 08:17-0400 Systolic blood pressure 115 mm[Hg] Dr. Mike Shafer Work Phone: [facility] 05-01-2023 06:28-0400 Body height 154.[address] Mike Shafer Work Phone: [facility] 05-01-2023 06:28-0400 Body mass index (BMI) [Ratio] 33.7 kg/m2 Dr. Mike Shafer Work Phone: [facility] 05-01-2023 06:28-0400 Body weight [address] Mike Shafer Work Phone: [facility] 03-27-2023 10:26-0400 Body mass index (BMI) [Ratio] 34 kg/m2 Dr. Mike Shafer Work Phone: [facility] 03-27-2023 10:26-0400 Body temperature 97.6 [degF] Dr. Mike Shafer Work Phone: [facility] 03-27-2023 10:26-0400 Body weight 81.[address] Mike Shafer Work Phone: [facility] 03-27-2023 10:26-0400 Diastolic blood pressure 71 mm[Hg] Dr. Mike Shafer Work Phone: [facility] 03-27-2023 10:26-0400 Heart rate 70 /min Dr. Mike Shafer Work Phone: [facility] 03-27-2023 10:26-0400 Respiratory rate 16 /min Dr. Mike Shafer Work Phone: [facility] 03-27-2023 10:26-0400 SaO2% (BldA) [Mass fraction] 94 % Dr. Mike Shafer Work Phone: [facility] 03-27-2023 10:26-0400 Systolic blood pressure 112 mm[Hg] Dr. Mike Shafer Work Phone: [facility] 01-27-2023 09:04-0400 Body height 154.[address] Mike Shafer Work Phone: [facility] 01-27-2023 09:04-0400 Body mass index (BMI) [Ratio] 33.9 kg/m2 Dr. Mike Shafer Work Phone: [facility] 01-27-2023 09:04-0400 Body temperature 98.6 [degF] Dr. Mike Shafer Work Phone: [facility] 01-27-2023 09:04-0400 Body weight 81.[address] Mike Shafer Work Phone: [facility] 01-27-2023 09:04-0400 Diastolic blood pressure 76 mm[Hg] Dr. Mike Shafer Work Phone: [facility] 01-27-2023 09:04-0400 Heart rate 83 /min Dr. Mike Shafer Work Phone: [facility] 01-27-2023 09:04-0400 Respiratory rate 16 /min Dr. Mike Shafer Work Phone: [facility] 01-27-2023 09:04-0400 SaO2% (BldA) [Mass fraction] 95 % Dr. Mike Shafer Work Phone: [facility] 01-27-2023 09:04-0400 Systolic blood pressure 110 mm[Hg] Dr. Mike Shafer Work Phone: [facility] 12-03-2022 08:57-0500 Body height 154.[address] Mike Shafer Work Phone: [facility] 12-03-2022 08:53-0500 Body mass index (BMI) [Ratio] 35.6 kg/m2 Dr. Mike Shafer Work Phone: [facility] 12-03-2022 08:53-0500 Body temperature 98.3 [degF] Dr. Mike Shafer Work Phone: [facility] 12-03-2022 08:53-0500 Body weight 85.[address] Mike Shafer Work Phone: [facility] 12-03-2022 08:53-0500 Diastolic blood pressure 70 mm[Hg] Dr. Mike Shafer Work Phone: [facility] 12-03-2022 08:53-0500 Heart rate 67 /min Dr. Mike Shafer Work Phone: [facility] 12-03-2022 08:53-0500 Respiratory rate 17 /min Dr. Mike Shafer Work Phone: [facility] 12-03-2022 08:53-0500 SaO2% (BldA) [Mass fraction] 95 % Dr. Mike Shafer Work Phone: [facility] 12-03-2022 08:53-0500 Systolic blood pressure 104 mm[Hg] Dr. Mike Shafer Work Phone: [facility] 09-04-2022 10:09-0500 Body height 154.[address] Mike Shafer Work Phone: [facility] Work Phone: 09-04-2022 10:09-0500 Body mass index (BMI) [Ratio] 39.7 kg/m2 Dr. Mike Shafer Work Phone: [facility] 09-04-2022 10:09-0500 Body temperature 97 [degF] Dr. Mike Shafer Work Phone: [facility] 09-04-2022 10:09-0500 Body weight 95.[address] Mike Shafer Work Phone: [facility] 09-04-2022 10:09-0500 Diastolic blood pressure 75 mm[Hg] Dr. Mike Shafer Work Phone: [facility] 09-04-2022 10:09-0500 Heart rate 70 /min Dr. Mike Shafer Work Phone: [facility] 09-04-2022 10:09-0500 Respiratory rate 18 /min Dr. Mike Shafer Work Phone: [facility] 09-04-2022 10:09-0500 SaO2% (BldA) [Mass fraction] 92 % Dr. Mike Shafer Work Phone: [facility] 09-04-2022 10:09-0500 Systolic blood pressure 111 mm[Hg] Dr. Mike Shafer Work Phone: [facility] 06-06-2022 11:45-0400 Body height 154.[address] Mike Shafer Work Phone: [facility] Work Phone: 06-06-2022 11:19-0400 Body mass index (BMI) [Ratio] 40.6 kg/m2 Dr. Mike Shafer Work Phone: [facility] Work Phone: 06-06-2022 11:19-0400 Body temperature 98 [degF] Dr. Mike Shafer Work Phone: [facility] Work Phone: 06-06-2022 11:19-0400 Body weight 97.[address] Mike Shafer Work Phone: [facility] Work Phone: 06-06-2022 11:19-0400 Diastolic blood pressure 81 mm[Hg] Dr. Mike Shafer Work Phone: [facility] Work Phone: 06-06-2022 11:19-0400 Heart rate 69 /min Dr. Mike Shafer Work Phone: [facility] Work Phone: 06-06-2022 11:19-0400 Respiratory rate 15 /min Dr. Mike Shafer Work Phone: [facility] Work Phone: 06-06-2022 11:19-0400 SaO2% (BldA) [Mass fraction] 92 % Dr. Mike Shafer Work Phone: [facility] Work Phone: 06-06-2022 11:19-0400 Systolic blood pressure 131 mm[Hg] Dr. Mike Shafer Work Phone: [facility] Work Phone: 03-21-2022 10:08-0400 Body mass index (BMI) [Ratio] 40.2 kg/m2 Dr. Mike Shafer Work Phone: [facility] Work Phone: 03-21-2022 10:08-0400 Body temperature 99.7 [degF] Dr. Mike Shafer Work Phone: [facility] Work Phone: 03-21-2022 10:08-0400 Body weight 96.[address] Mike Shafer Work Phone: [facility] Work Phone: 03-21-2022 10:08-0400 Diastolic blood pressure 67 mm[Hg] Dr. Mike Shafer Work Phone: [facility] Work Phone: 03-21-2022 10:08-0400 Heart rate 64 /min Dr. Mike Shafer Work Phone: [facility] Work Phone: 03-21-2022 10:08-0400 Respiratory rate 17 /min Dr. Mike Shafer Work Phone: [facility] Work Phone: 03-21-2022 10:08-0400 SaO2% (BldA) [Mass fraction] 94 % Dr. Mike Shafer Work Phone: [facility] Work Phone: 03-21-2022 10:08-0400 Systolic blood pressure 122 mm[Hg] Dr. Mike Shafer Work Phone: [facility] Work Phone: 11-29-2020 15:02-0500 Body mass index (BMI) [Ratio] 41.6 kg/m2 Dr. Mike Shafer Work Phone: [facility] 11-29-2020 15:02-0500 Body temperature 97.9 [degF] Dr. Mike Shafer Work Phone: [facility] 11-29-2020 15:02-0500 Body weight 99.[address] Mike Shafer Work Phone: [facility] 11-29-2020 15:02-0500 Diastolic blood pressure 81 mm[Hg] Dr. Mike Shafer Work Phone: [facility] 11-29-2020 15:02-0500 Heart rate 70 /min Dr. Mike Shafer Work Phone: [facility] 11-29-2020 15:02-0500 Respiratory rate 16 /min Dr. Mike Shafer Work Phone: [facility] 11-29-2020 15:02-0500 SaO2% (BldA) [Mass fraction] 99 % Dr. Mike Shafer Work Phone: [facility] 11-29-2020 15:02-0500 Systolic blood pressure 140 mm[Hg] Dr. Mike Shafer Work Phone: [facility] 07-14-2017 07:06-0400 BMI (Body Mass Index) 37.31 kg/m2 Ilene York [facility] Work Phone: 07-14-2017 07:06-0400 Body Temperature 98.1 [degF] Ilene [facility] [place] Work Phone: 07-14-2017 07:06-0400 BP Diastolic 77 mm[Hg] Ilene [facility] [place] Work Phone: 07-14-2017 07:06-0400 BP Systolic 113 mm[Hg] Ilene [facility] [place] Work Phone: 07-14-2017 07:06-0400 Height 157.48 cm Ilene [facility] [place] Work Phone: 07-14-2017 07:06-0400 Pulse (Heart Rate) 74 /min Ilene Papa [facility] [place] Work Phone: 07-14-2017 07:06-0400 Respiratory Rate 18 /min Ilene York [facility] [place] Work Phone: 07-14-2017 07:06-0400 Weight 92.53 kg Ilene [facility] [place] Work Phone: 06-18-2017 05:40-0400 BMI (Body Mass Index) 37.49 kg/m2 Ilene Papa [facility] Work Phone: 06-18-2017 05:40-0400 Body Temperature 97.5 [degF] Ilene York [facility] [place] Work Phone: 06-18-2017 05:40-0400 BP Diastolic 87 mm[Hg] Ilene [facility] [place] Work Phone: 06-18-2017 05:40-0400 BP Systolic 125 mm[Hg] Ilene [facility] [place] Work Phone: 06-18-2017 05:40-0400 Height 157.48 cm Ilene Papa [facility] [place] Work Phone: 06-18-2017 05:40-0400 Pulse (Heart Rate) 75 /min Ilene Papa [facility] [place] Work Phone: 06-18-2017 05:40-0400 Respiratory Rate 18 /min Ilene Papa [facility] [place] Work Phone: 06-18-2017 05:40-0400 Weight 92.99 kg [facility] [place] Work Phone: 10-31-2015 08:10-0500 Body height 154.94 cm Anjali [facility] Work Phone: 10-31-2015 08:10-0500 Body mass index (BMI) [Ratio] 38.17 kg/m2 Anjali [facility] Work Phone: 10-31-2015 08:10-0500 Body surface area Derived from formula 1.9 m2 Anjali [facility] Work Phone: 10-31-2015 08:10-0500 Body temperature 97.9 [degF] Anjali Mendez [facility]; [facility] Work Phone: Comment on above: Method: Temporal 10-31-2015 08:10-0500 Body weight 91.63 kg Anjali Mendez [facility] Work Phone: 10-31-2015 08:10-0500 Diastolic blood pressure 80 mm[Hg] Anjali [facility] Work Phone: Comment on above: Patient Position: Sitting; Cuff Location : Left Arm; Cuff Size: Large 10-31-2015 08:10-0500 Heart rate 69 /min Anjali [facility] Work Phone: Comment on above: Pattern: Regular 10-31-2015 08:10-0500 Respiratory rate 15 /min Anjali Estrellasilvia [facility] Work Phone: Comment on above: Pattern: Unlabored 10-31-2015 08:10-0500 SaO2% (BldA) [Mass fraction] 97 % Anjali Estrellasilvia [facility] Work Phone: Comment on above: Room air 10-31-2015 08:10-0500 Systolic blood pressure 124 mm[Hg] Anjali Estrellasilvia [facility]; [facility] Work Phone: Comment on above: Patient Position: Sitting; Cuff Location : Left Arm; Cuff Size: Large 06-27-2015 08:05-0400 Body height 154.94 cm Anjali Andrea [facility] Work Phone: 06-27-2015 08:05-0400 Body mass index (BMI) [Ratio] 38.36 kg/m2 Anjali Andrea [facility] Work Phone: 06-27-2015 08:05-0400 Body surface area Derived from formula 1.9 m2 Anjali Andrea [facility]; [facility] Work Phone: 06-27-2015 08:05-0400 Body temperature 98.1 [degF] Anjali Estrellasilvia [facility]; [facility] Work Phone: Comment on above: Method: Temporal 06-27-2015 08:05-0400 Body weight 92.08 kg Anjali Andrea [facility]; [facility] Work Phone: 06-27-2015 08:05-0400 Diastolic blood pressure 80 mm[Hg] Anjali Andrea [facility]; [facility] Work Phone: Comment on above: Patient Position: Sitting; Cuff Location : Left Arm; Cuff Size: Large 06-27-2015 08:05-0400 Heart rate 72 /min Anjali Andrea [facility]; [facility] Work Phone: Comment on above: Pattern: Regular 06-27-2015 08:05-0400 Respiratory rate 16 /min Anjali Gomeztess [facility] Work Phone: Comment on above: Pattern: Unlabored 06-27-2015 08:05-0400 SaO2% (BldA) [Mass fraction] 95 % Anjali Gomeztess [facility]; [facility] Work Phone: Comment on above: Room air 06-27-2015 08:05-0400 Systolic blood pressure 112 mm[Hg] Anjali Estrellasilvia [facility]; [facility] Work Phone: Comment on above: Patient Position: Sitting; Cuff Location : Left Arm; Cuff Size: Large 02-06-2015 11:47-0400 Body height 154.94 cm Anjali Estrellasilvia [facility]; [facility] Work Phone: 02-06-2015 11:47-0400 Body mass index (BMI) [Ratio] 37.41 kg/m2 Anjali Andrea [facility] Work Phone: 02-06-2015 11:47-0400 Body surface area Derived from formula 1.88 m2 Anjali Andrea [facility]; [facility] Work Phone: 02-06-2015 11:47-0400 Body temperature 98.3 [degF] Anjali Estrellasilvia [facility]; [facility] Work Phone: Comment on above: Method: Oral 02-06-2015 11:47-0400 Body weight 89.81 kg Anjali Estrlelasilvia [facility]; [facility] Work Phone: 02-06-2015 11:47-0400 Diastolic blood pressure 80 mm[Hg] Anjali Andrea [facility]; [facility] Work Phone: Comment on above: Patient Position: Sitting; Cuff Location : Left Arm; Cuff Size: Large 02-06-2015 11:47-0400 Heart rate 72 /min Anjali Andrea [facility]; [facility] Work Phone: Comment on above: Pattern: Regular 02-06-2015 11:47-0400 Respiratory rate 16 /min Anjali Estrellasilvia [facility] Work Phone: Comment on above: Pattern: Unlabored 02-06-2015 11:47-0400 Systolic blood pressure 116 mm[Hg] Anjali Estrellalilatess [facility]; [facility] Work Phone: Comment on above: Patient Position: Sitting; Cuff Location : Left Arm; Cuff Size: Large 11-24-2013 15:20-0500 Body height 154.94 cm Elisabeth Parminder ORNELAS [facility]; [facility] Work Phone: 11-24-2013 15:20-0500 Body mass index (BMI) [Ratio] 36.51 kg/m2 Elisabeth Parminder ORNELAS [facility] Work Phone: 11-24-2013 15:20-0500 Body surface area Derived from formula 1.86 m2 Elisabethavery Zurita LPN [facility] Work Phone: 11-24-2013 15:20-0500 Body temperature 97.9 [degF] Elisabeth Parminder ORNELAS [facility] Work Phone: Comment on above: Method: Oral 11-24-2013 15:20-0500 Body weight 87.66 kg Elisabeth Mccallsis ORNELAS [facility] Work Phone: 11-24-2013 15:20-0500 Diastolic blood pressure 74 mm[Hg] Elisabeth Parminder ORNELAS [facility]; [facility] Work Phone: Comment on above: Patient Position: Sitting; Cuff Location : Left Arm; Cuff Size: Standard 11-24-2013 15:20-0500 Heart rate 80 /min Elisabeth Parminder ORNELAS [facility]; [facility] Work [...] 15:11-0500 Systolic blood pressure 102 mm[Hg] Analilia Caldwell Fast DO Work Phone: [facility]; [facility] Work Phone: Comment on above: Patient Position: Sitting; Cuff Location : Left Arm; Cuff Size: Large 09-28-2013 11:27-0500 Body height 156.21 cm Albina Acuna [facility] [address] [facility] Work Phone: 09-28-2013 11:27-0500 Body mass index (BMI) [Ratio] 38.37 kg/m2 Albina Acuna [facility] [address] [facility]; [facility] Work Phone: 09-28-2013 11:27-0500 Body surface area Derived from formula 1.93 m2 Albina Acuna [facility] [address] [facility]; [facility] Work Phone: 09-28-2013 11:27-0500 Body temperature 98.4 [degF] Albina Acuna [facility] [address] [facility]; [facility] Work Phone: Comment on above: Method: Oral 09-28-2013 11:27-0500 Body weight 93.64 kg Albina Acuna [facility] [address] [facility]; [facility] Work Phone: 09-28-2013 11:27-0500 Diastolic blood pressure 74 mm[Hg] Albina Acuna [facility] [address] [facility]; [facility] Work Phone: Comment on above: Patient Position: Sitting; Cuff Location : Left Arm; Cuff Size: Standard 09-28-2013 11:27-0500 Heart rate 87 /min Albina Acuna [facility] [address] [facility]; [facility] Work Phone: Comment on above: Pattern: Regular 09-28-2013 11:27-0500 Respiratory rate 16 /min Albina Acuna [facility] [address] [facility]; [facility] Work Phone: Comment on above: Pattern: Unlabored 09-28-2013 11:27-0500 SaO2% (BldA) [Mass fraction] 98 % Albina Acuna [facility] [address] [facility]; [facility] Work Phone: Comment on above: Room air 09-28-2013 11:27-0500 Systolic blood pressure 124 mm[Hg] Albina Acuna [facility] [address] [facility]; [facility] Work Phone: Comment on above: Patient Position: Sitting; Cuff Location : Left Arm; Cuff Size: Standard 07-27-2013 14:28-0400 Body height 156.21 cm Anjali Mendez [facility]; [facility] Work Phone: 07-27-2013 14:28-0400 Body mass index (BMI) [Ratio] 37.73 kg/m2 Anjali Mendez [facility]; [facility] Work Phone: 07-27-2013 14:28-0400 Body surface area Derived from formula 1.91 m2 Anjali Mendez [facility]; [facility] Work Phone: 07-27-2013 14:28-0400 Body temperature 97.6 [degF] Anjali Mendez [facility]; [facility] Work Phone: 07-27-2013 14:28-0400 Body weight 92.08 kg Anjali Mendez [facility]; [facility] Work Phone: 07-27-2013 14:28-0400 Diastolic blood pressure 62 mm[Hg] Anjali Mendez [facility]; [facility] Work Phone: Comment on above: Patient Position: Sitting; Cuff Location : Left Arm; Cuff Size: Large 07-27-2013 14:28-0400 Heart rate 76 /min Anjali Mendez [facility]; [facility] Work Phone: Comment on above: Pattern: Regular 07-27-2013 14:28-0400 Respiratory rate 16 /min Anjali Mendez [facility]; [facility] Work Phone: Comment on above: Pattern: Unlabored 07-27-2013 14:28-0400 Systolic blood pressure 114 mm[Hg] Anjali Estrellasilvia [facility]; [facility] Work Phone: Comment on above: Patient Position: Sitting; Cuff Location : Left Arm; Cuff Size: Large 11-24-2012 14:31-0500 Body height 154.94 cm Gloria Bourne [facility]; [facility] Work Phone: 11-24-2012 14:31-0500 Body mass index (BMI) [Ratio] 34.81 kg/m2 Gloria Bourne [facility]; [facility] Work Phone: 11-24-2012 14:31-0500 Body surface area Derived from formula 1.82 m2 Gloria Bourne [facility]; [facility] Work Phone: 11-24-2012 14:31-0500 Body temperature 99.1 [degF] Gloria Bourne [facility]; [facility] Work Phone: Comment on above: Method: Tympanic 11-24-2012 [id number] Body weight 83.58 kg Gloria Bourne [facility] [...] Systolic blood pressure 106 mm[Hg] Gloria Bourne [facility]; [facility] Work Phone: Comment on above: Patient Position: Sitting; Cuff Location : Left Arm; Cuff Size: Standard 10-23-2012 10:02-0500 Body height 154.94 cm Anjali [facility]; [facility] Work Phone: 10-23-2012 10:02-0500 Body mass index (BMI) [Ratio] 35.14 kg/m2 Anjali [facility]; [facility] Work Phone: 10-23-2012 10:02-0500 Body surface area Derived from formula 1.83 m2 Anjali [facility]; [facility] Work Phone: 10-23-2012 10:02-0500 Body temperature 96.6 [degF] Anjali Mendez [facility]; [facility] Work Phone: 10-23-2012 10:02-0500 Body weight 84.37 kg Anjali Mendez [facility]; [facility] Work Phone: 10-23-2012 10:02-0500 Diastolic blood pressure 70 mm[Hg] Anjali Mendez [facility]; [facility] Work Phone: Comment on above: Patient Position: Sitting; Cuff Location : Left Arm; Cuff Size: Large 10-23-2012 10:02-0500 Heart rate 74 /min Anjali Mendez [facility]; [facility] Work Phone: Comment on above: Pattern: Regular 10-23-2012 10:02-0500 Respiratory rate 16 /min Anjali [facility]; [facility] Work Phone: Comment on above: Pattern: Unlabored 10-23-2012 10:02-0500 Systolic blood pressure 102 mm[Hg] Anjali [facility]; [facility] [...] 08-19-2012 16:08-0500 Body weight 79.83 kg Elly Cruz RN [facility]; [facility] Work Phone: 08-19-2012 16:08-0500 Diastolic blood pressure 76 mm[Hg] Elly Cruz RN [facility]; [...] 32.82 kg/m2 Ilene Elam [facility] [place] Work Phone: 05-28-2012 09:30-0400 Body Temperature 97.8 [degF] Ilene Elam [facility] [place] Work Phone: 05-28-2012 09:30-0400 BP Diastolic 87 mm[Hg] Ilene Elam [facility] [place] Work Phone: 05-28-2012 09:30-0400 BP Systolic 128 mm[Hg] Ilene pic5 [facility] [place] Work Phone: 05-28-2012 09:30-0400 BSA (Body Surface Area) 1.82 m2 [facility] [place] Work Phone: 05-28-2012 09:30-0400 Height 157.48 cm Ilene pic5 [facility] [place] Work Phone: 05-28-2012 09:30-0400 Pulse (Heart Rate) 72 /min [facility]ene[facility] [place] Work Phone: 05-28-2012 09:30-0400 Respiratory Rate 16 /min Ilene pic5 [facility] [place] Work Phone: 05-28-2012 09:30-0400 Weight 81.1 kg Ilene pic5 [facility] [place] Work Phone: 03-16-2012 16:28-0400 Body height 154.94 cm Anjali [facility]; [facility] Work Phone: 03-16-2012 16:28-0400 Body mass index (BMI) [Ratio] 33.25 kg/m2 Anjali Mendez [facility]; [facility] Work [...] 16:28-0400 Diastolic blood pressure 72 mm[Hg] Anjali [facility]; [facility] Work Phone: Comment on above: Patient Position: Sitting; Cuff Location : Left Arm; Cuff Size: Large 03-16-2012 16:28-0400 Heart rate 68 /min Anjali Mendez [facility]; [facility] Work Phone: Comment on above: Pattern: Regular 03-16-2012 16:28-0400 Respiratory rate 16 /min Anjali Andrea [facility]; [facility] Work Phone: Comment on above: Pattern: Unlabored 03-16-2012 16:28-0400 Systolic blood pressure 100 mm[Hg] Anjali Andrea [facility]; [facility] [...] 01-20-2012 16:52-0400 Body weight 78.98 kg Elisabeth Parminder ORNELAS [facility]; [facility] Work Phone: 01-20-2012 16:52-0400 Diastolic blood pressure 72 mm[Hg] Elisabeth Parminder ORNELAS [facility]; [facility] Work Phone: Comment on above: Patient Position: Sitting; Cuff Location : Left Arm; Cuff Size: Standard 01-20-2012 16:52-0400 Heart rate 88 /min Elisabeth Parminder ORNELAS [facility]; [facility] Work Phone: Comment on above: Pattern: Regular 01-20-2012 16:52-0400 Respiratory rate 16 /min Elisabeth Zurita LPN [facility]; [facility] Work Phone: 01-20-2012 16:52-0400 SaO2% (BldA) [Mass fraction] 94 % Elisabeth Zurita CECI [facility]; [facility] Work Phone: Comment on above: Room air 01-20-2012 16:52-0400 Systolic blood pressure 110 mm[Hg] Elisabeth Zurita CECI [facility]; [facility] Work Phone: Comment on above: Patient Position: Sitting; Cuff Location : Left Arm; Cuff Size: Standard 12-17-2011 15:40-0400 Body height 154.94 cm Elisabeth Zurita CECI [facility]; [facility] Work Phone: 12-17-2011 15:40-0400 Body mass index (BMI) [Ratio] 33.53 kg/m2 Elisabeth Zurita CECI [facility]; [facility] Work Phone: 12-17-2011 15:40-0400 Body surface area Derived from formula 1.8 m2 Elisabeth Zurita CECI [facility]; [facility] Work Phone: 12-17-2011 15:40-0400 Body temperature 99.1 [degF] Elisabeth Zurita CECI [facility]; [facility] Work Phone: Comment on above: Method: Oral 12-17-2011 15:40-0400 Body weight 80.49 kg Elisabeth Zurita CECI [facility]; [facility] Work Phone: 12-17-2011 15:40-0400 Diastolic blood pressure 70 mm[Hg] Elisabeth Zurita CECI [facility]; [facility] Work Phone: Comment on above: Patient Position: Sitting; Cuff Location : Left Arm; Cuff Size: Standard 12-17-2011 15:40-0400 Heart rate 82 /min Elisabeth Mccallsis ORNELAS [facility]; [facility] Work Phone: Comment on above: Pattern: Regular 12-17-2011 15:40-0400 Respiratory rate 16 /min Elisabeth Parminder ORNELAS [facility]; [facility] Work Phone: Comment on above: Pattern: Unlabored 12-17-2011 15:40-0400 Systolic blood pressure 112 mm[Hg] Elisabeth Zurita CECI [facility]; [facility] Work Phone: Comment on above: Patient Position: Sitting; Cuff Location : Left Arm; Cuff Size: Standard 11-18-2011 15:11-0500 Body height 155.57 cm Anjali Mendez [facility]; [facility] Work Phone: 11-18-2011 15:11-0500 Body mass index (BMI) [Ratio] 34.11 kg/m2 Anjali Mendez [facility]; [facility] Work Phone: 11-18-2011 15:11-0500 Body surface area Derived from formula 1.82 m2 Anjali Mendez [facility]; [facility] Work Phone: 11-18-2011 15:11-0500 Body temperature 97.9 [degF] Anjali Mendez [facility]; [facility] Work Phone: 11-18-2011 15:11-0500 Body weight 82.56 kg Anjali Mendez [facility]; [facility] Work Phone: 11-18-2011 15:11-0500 Diastolic blood pressure 60 mm[Hg] Anjali Mendez [facility]; [facility] Work Phone: Comment on above: Patient Position: Sitting; Cuff Location : Left Arm; Cuff Size: Large 11-18-2011 15:11-0500 Heart rate 84 /min Anjali Mendez [facility]; [facility] Work Phone: Comment on above: Pattern: Regular 11-18-2011 15:11-0500 Respiratory rate 16 /min Anjali Mendez [facility]; [facility] Work Phone: Comment on above: Pattern: Unlabored 11-18-2011 15:11-0500 Systolic blood pressure 90 mm[Hg] Anjali Mendez [facility]; [facility] Work Phone: Comment on above: Patient Position: Sitting; Cuff Location : Left Arm; Cuff Size: Large 11-05-2011 15:54-0500 Body height 155.57 cm Anjali Mendez [facility]; [facility] Work Phone: 11-05-2011 15:54-0500 Body mass index (BMI) [Ratio] 35.05 kg/m2 Anjali Mendez [facility]; [facility] Work Phone: 11-05-2011 15:54-0500 Body surface area Derived from formula 1.84 m2 Anjali Mendez [facility]; [facility] Work Phone: 11-05-2011 15:54-0500 Body temperature 97.6 [degF] Anjali Mendez [facility]; [facility] Work Phone: 11-05-2011 15:54-0500 Body weight 84.82 kg Anjali Mendez [facility]; [facility] Work Phone: 11-05-2011 15:54-0500 Diastolic blood pressure 78 mm[Hg] Anjali Mendez [facility]; [facility] Work Phone: Comment on above: Patient Position: Sitting; Cuff Location : Left Arm; Cuff Size: Large 11-05-2011 15:54-0500 Heart rate 72 /min Anjali Mendez [facility]; [facility] Work Phone: Comment on above: Pattern: Regular 11-05-2011 15:54-0500 Respiratory rate 16 /min Anjali Mendez [facility]; [facility] Work Phone: Comment on above: Pattern: Unlabored 11-05-2011 15:54-0500 Systolic blood pressure 110 mm[Hg] Anjali Mendez [facility]; [facility] Work Phone: Comment on above: Patient Position: Sitting; Cuff Location : Left Arm; Cuff Size: Large 07-22-2011 13:58-0400 Body height 155.57 cm Reshma Kidd RN [facility]; [facility] Work [...] mass index (BMI) [Ratio] 35.98 kg/m2 Anjali Mendez [facility]; [facility] Work Phone: 04-15-2011 16:37-0400 Body surface area Derived from formula 1.86 m2 Anjali Flinner [facility]; [facility] Work Phone: 04-15-2011 16:37-0400 Body temperature 96.6 [degF] Anjali Andrea [facility]; [facility] Work Phone: 04-15-2011 16:37-0400 Body weight 87.09 kg Anjali Andrea [facility]; [facility] Work Phone: 04-15-2011 16:37-0400 Diastolic blood pressure 68 mm[Hg] Anjali Andrea [facility]; [facility] Work Phone: Comment on above: Patient Position: Sitting; Cuff Location : Left Arm; Cuff Size: Large 04-15-2011 16:37-0400 Heart rate 70 /min Anjali Andrea [facility]; [facility] Work Phone: Comment on above: Pattern: Regular 04-15-2011 16:37-0400 Respiratory rate 16 /min Anjali Andrea [facility]; [facility] Work Phone: Comment on above: Pattern: Unlabored 04-15-2011 16:37-0400 Systolic blood pressure 94 mm[Hg] Anjali Andrea [facility]; [facility] Work Phone: Comment on above: Patient Position: Sitting; Cuff Location : Left Arm; Cuff Size: Large 10-22-2010 16:00-0500 Body temperature 97 [degF] Anjali Mendez [facility]; [facility] Work Phone: 10-22-2010 16:00-0500 Body weight 88.45 kg Anjali Andrea [facility]; [facility] Work Phone: 10-22-2010 16:00-0500 Diastolic blood pressure 80 mm[Hg] Anjali Andrea [facility]; [facility] Work Phone: Comment on above: Patient Position: Sitting; Cuff Location : Left Arm; Cuff Size: Standard 10-22-2010 16:00-0500 Heart rate 64 /min Anjali Mendez [facility]; [facility] Work Phone: Comment on above: Pattern: Regular 10-22-2010 16:00-0500 Respiratory rate 18 /min Anjali Mendez [facility]; [facility] Work Phone: Comment on above: Pattern: Unlabored 10-22-2010 16:00-0500 Systolic blood pressure 110 mm[Hg] Anjali Mendez [facility]; [facility] Work Phone: Comment on above: Patient Position: Sitting; Cuff Location : Left Arm; Cuff Size: Standard 08-07-2010 08:49-0400 Body temperature 97.2 [degF] Elisabeth Parminder AREVALON [facility]; [facility] Work Phone: Comment on above: Method: Oral 08-07-2010 08:49-0400 Body weight 88.45 kg Elisabeth Mccallsis ORNELAS [facility]; [facility] Work Phone: 08-07-2010 08:49-0400 Diastolic blood pressure 78 mm[Hg] Elisabeth Mccallsis ORNELAS [facility]; [facility] Work Phone: Comment on above: Patient Position: Sitting; Cuff Location : Left Arm; Cuff Size: Standard 08-07-2010 08:49-0400 Heart rate 82 /min Elisabeth Mccallsis [place] [facility]; [facility] Work Phone: Comment on above: Pattern: Regular 08-07-2010 08:49-0400 Respiratory rate 16 /min Elisabeth Mccallsis [place] [facility]; [facility] Work Phone: Comment on above: Pattern: Unlabored 08-07-2010 08:49-0400 Systolic blood pressure 120 mm[Hg] Elisabeth Zurita [employer] [facility]; [facility] Work Phone: Comment on above: Patient Position: Sitting; Cuff Location : Left Arm; Cuff Size: Standard 04-03-2010 15:08-0400 Body temperature 98.4 [degF] Anjlai Mendez [facility]; [facility] Work Phone: 04-03-2010 15:08-0400 Diastolic blood pressure 80 mm[Hg] Anjali Estrellasilvia [facility]; [facility] Work Phone: Comment on above: Patient Position: Sitting; Cuff Location : Left Arm; Cuff Size: Standard 04-03-2010 15:08-0400 Heart rate 80 /min Anjali Mendez [facility]; [facility] Work Phone: Comment on above: Pattern: Regular 04-03-2010 15:08-0400 Respiratory rate 18 /min Anjali Estrellasilvia [facility]; [facility] Work Phone: Comment on above: Pattern: Unlabored 04-03-2010 15:08-0400 Systolic blood pressure 116 mm[Hg] Anjali Andrea [facility]; [facility] Work Phone: Comment on above: Patient Position: Sitting; Cuff Location : Left Arm; Cuff Size: Standard 01-16-2010 16:19-0400 Body temperature 98.2 [degF] Anjali Estrellasilvia [facility]; [facility] Work Phone: 01-16-2010 16:19-0400 Body weight 88.45 kg Anjali Estrellasilvia [facility]; [facility] Work Phone: 01-16-2010 16:19-0400 Diastolic blood pressure 76 mm[Hg] Anjali Estrellasilvia [facility]; [facility] Work Phone: Comment on above: Patient Position: Sitting; Cuff Location : Left Arm; Cuff Size: Large 01-16-2010 16:19-0400 Heart rate 90 /min Anjali Estrellasilvia [facility]; [facility] Work Phone: Comment on above: Pattern: Regular 01-16-2010 16:19-0400 Respiratory rate 18 /min Anjali Andrea [facility]; [facility] Work Phone: Comment on above: Pattern: Unlabored 01-16-2010 16:19-0400 Systolic blood pressure 110 mm[Hg] Anjali Andrea [facility]; [facility] Work Phone: Comment on above: Patient Position: Sitting; Cuff Location : Left Arm; Cuff Size: Large 10-31-2009 16:01-0500 Body temperature 98.1 [degF] Anjali Estrellasilvia [facility]; [facility] Work Phone: 10-31-2009 16:01-0500 Body weight 86.18 kg Anjali Mendez [facility]; [facility] Work Phone: 10-31-2009 16:01-0500 Diastolic blood pressure 80 mm[Hg] Anjali Estrellasilvia [facility]; [facility] Work Phone: Comment on above: Patient Position: Sitting; Cuff Location : Right Arm; Cuff Size: Standard 10-31-2009 16:01-0500 Heart rate 84 /min Anjali Estrellasilvia [facility]; [facility] Work Phone: Comment on above: Pattern: Regular 10-31-2009 16:01-0500 Respiratory rate 18 /min Anjali Andrea [facility]; [facility] Work Phone: Comment on above: Pattern: Unlabored 10-31-2009 16:01-0500 Systolic blood pressure 126 mm[Hg] Anjali Estrellasilvia [facility]; [facility] Work Phone: Comment on above: Patient Position: Sitting; Cuff Location : Right Arm; Cuff Size: Standard 07-05-2009 15:43-0400 Body height 0 cm Anjali Estrellasilvia [facility]; [facility] Work Phone: 07-05-2009 15:43-0400 Body temperature 97.3 [degF] Anjali Estrellasilvia [facility]; [facility] Work Phone: Comment on above: Method: Undefined 07-05-2009 15:43-0400 Body weight 85.73 kg Anjali Estrellasilvia [facility]; [facility] Work Phone: 07-05-2009 15:43-0400 Diastolic blood pressure 82 mm[Hg] Anjali Andrea [facility]; [facility] Work Phone: Comment on above: Patient Position: Sitting; Cuff Location : Right Arm; Cuff Size: Standard 07-05-2009 15:43-0400 Head Occipital-frontal circumference 0 cm Anjali Estrellasilvia [facility]; [facility] Work Phone: 07-05-2009 15:43-0400 Heart rate 76 /min Anjali Mendez [facility]; [facility] Work Phone: Comment on above: Pattern: Regular 07-05-2009 15:43-0400 Respiratory rate 16 /min Anjali [facility]ess [facility] [facility]; [facility] Work Phone: Comment on above: Pattern: Undefined 07-05-2009 15:43-0400 Systolic blood pressure 122 mm[Hg] Anjali Estrellasilvia [facility]; [facility] Work Phone: Comment on above: Patient Position: Sitting; Cuff Location : Right Arm; Cuff Size: Standard 02-22-2009 15:15-0400 Body height 156.21 cm Anjali Estrellasilvia [facility]; [facility] Work Phone: 02-22-2009 15:15-0400 Body mass index (BMI) [Ratio] 32.9 kg/m2 Anjali Estrellasilvia [facility]; [facility] Work Phone: 02-22-2009 15:15-0400 Body surface area Derived from formula 1.8 m2 Anjali Estrellasilvia [facility]; [facility] Work Phone: 02-22-2009 15:15-0400 Body temperature 98.1 [degF] Anjali Estrellasilvia [facility]; [facility] Work Phone: Comment on above: Method: Undefined 02-22-2009 15:15-0400 Body weight 80.29 kg Anjali Estrellasilvia [facility]; [facility] Work Phone: 02-22-2009 15:15-0400 Diastolic blood pressure 74 mm[Hg] Anjali Estrellasilvia [facility]; [facility] Work Phone: Comment on above: Patient Position: Sitting; Cuff Location : Right Arm; Cuff Size: Standard 02-22-2009 15:15-0400 Head Occipital-frontal circumference 0 cm Anjali Mendez [facility]; [facility] Work Phone: 02-22-2009 15:15-0400 Heart rate 76 /min Anjali Andrea [facility]; [facility] Work Phone: Comment on above: Pattern: Regular 02-22-2009 15:15-0400 Respiratory rate 16 /min Anjali Andrea [facility]; [facility] Work Phone: Comment on above: Pattern: Undefined 02-22-2009 15:15-0400 Systolic blood pressure 114 mm[Hg] Anjali Andrea [facility]; [facility] Work Phone: Comment on above: Patient Position: Sitting; Cuff Location : Right Arm; Cuff Size: Standard Encounters Encounter Date Encounter Type Care Provider Facility Start: 08-12-2025 End: 08-12-2025 ambulatory [facility] Facility:[facility] Start: 07-27-2025 ambulatory [facility] Facility:[facility] Start: 06-23-2025 End: 06-23-[address] Brando Chacon MD -[facility] Work Phone: Start: 06-23-2025 End: 06-23-2025 ambulatory [facility] COMPUTER RECYCLING WORKER-C Work Phone: -[facility] Start: 06-08-2025 End: 06-08-2025 ambulatory Lester Maria Isabel COMPUTER RECYCLING WORKER-C Work Phone: -Outpatient Bone Densitometry Start: 06-08-2025 End: 06-08-[address] Brando Chacon MD -[facility] Work Phone: Start: 06-08-2025 End: 06-08-2025 ambulatory [facility] Facility:[facility] Start: 05-30-[address] Brando Chacon MD -[facility] Start: 05-30-2025 End: 05-30-[address] Brando Chacon MD -[facility] Work Phone: Start: 05-30-2025 End: 05-30-2025 ambulatory Lester Mckay COMPUTER RECYCLING WORKER-C Work Phone: -[facility] Start: 05-24-2025 Visit out of hours Claudio Orozco MD Work Phone: [employer] Work Phone: Start: 05-19-2025 In-person encounter Claudio salcedo MD Work Phone: [facility] [employer] [facility] Work Phone: Start: 05-16-2025 End: 05-16-2025 Patient encounter procedure Beverly Emerson COMPUTER RECYCLING WORKER-C -[facility] Work Phone: Start: 05-16-2025 End: 05-16-2025 ambulatory Lester Mckay COMPUTER RECYCLING WORKER-C Work Phone: -[facility] Start: 05-13-2025 End: 05-13-[address] Chelsea Gilman MD -[facility] Work Phone: Start: 05-13-2025 End: 05-13-2025 ambulatory Lester Mckay COMPUTER RECYCLING WORKER-C Work Phone: -[facility] Start: 04-05-2025 Non-patient / Non-visit Dr. Chelsea christianson MD -[facility] Work Phone: Start: 03-30-2025 End: 03-30-2025 ambulatory JOSH R KLEAR DO Facility:A Start: 03-30-2025 End: 03-30-2025 Patient encounter procedure JOSH R ZEYAD DO [facility] Start: 03-22-2025 End: 03-25-2025 Evaluation and management of inpatient CLAUDIO OROZCO MD [facility] Start: 03-11-2025 End: 03-11-2025 Admission to establishment JSOH R KLENOTIC DO [facility] Start: 03-11-2025 End: 03-11-2025 ambulatory JOSH R KLENOTIC DO Facility:A Start: 03-10-2025 End: 03-10-2025 Patient encounter procedure Elly Leslie COMPUTER RECYCLING WORKER-C -[facility] Work Phone: Start: 03-10-2025 End: 03-10-2025 ambulatory Lester Mckay COMPUTER RECYCLING WORKER-C Work Phone: [facility] Work Phone: Start: 03-07-2025 End: 03-07-2025 ambulatory JOSH R KLENOTIC DO Facility:A Start: 03-07-2025 End: 03-07-2025 Patient encounter procedure JOSH R KLENOTIC DO [facility] Start: 02-10-2025 End: 02-10-[address] Brando Chacon MD -[facility] Work Phone: Start: 02-10-2025 End: 02-10-2025 ambulatory Lester Maria Isabel Facility:[facility] Start: 02-09-2025 End: 02-09-2025 ambulatory JOSH R KLENOTIC DO Facility:A Start: 02-09-2025 End: 02-09-2025 Patient encounter procedure JOSH R KLENOTIC DO [facility] Start: 02-07-2025 End: 02-07-2025 ambulatory Lester Mckay COMPUTER RECYCLING WORKER-C Work Phone: [facility] Work Phone: Start: 02-07-2025 End: 02-07-[address] Brando Chacon MD -Nuclear Medicine, [facility] Work Phone: Start: 02-07-2025 End: 02-07-2025 ambulatory Lesterjazzmine Mckay Facility:[facility] Start: 02-04-2025 End: 02-08-2025 ambulatory MIKE SHAFER MD Facility:A Start: 02-03-2025 ambulatory [facility] Facility:[facility] Start: 01-28-2025 End: 01-28-[address] Brando Chacon MD -[facility] Work Phone: Start: 01-27-[address] Brando Chacon MD -[facility] Start: 01-27-2025 End: 01-27-[address] Brando Chacon MD -[facility] Work Phone: Start: 01-27-2025 End: 01-28-2025 ambulatory [facility] Facility:[facility] Start: 01-19-2025 End: 01-19-[address] Darrel Lacy MD -[facility] Work Phone: Start: 01-19-2025 End: 01-19-2025 ambulatory [facility] Facility:[facility] Start: 01-06-2025 ambulatory Darrel Lacy Facility :[facility] Start: 01-06-2025 Non-patient / Non-visit Dr. Chuy BOOKER -[facility] Start: 01-06-2025 End: 01-06-[address] Darrel Lacy MD -Breast Imaging - Biopsy/[facility] Work Phone: Start: 01-06-2025 End: 01-06-2025 ambulatory [facility] COMPUTER RECYCLING WORKER-C Work Phone: [facility] Work Phone: Start: 12-24-2024 ambulatory [facility] Facility:[facility] Start: 12-22-2024 End: 12-22-2024 ambulatory [facility] COMPUTER RECYCLING WORKER-C Work Phone: [facility] Work Phone: Start: 12-22-2024 End: 12-22-[address] Darrel Lacy MD -Laboratory, Specimen Work Phone: Start: 12-22-2024 End: 12-22-[address] Darrel Lacy MD -[facility] Work Phone: Start: 12-22-2024 End: 12-22-2024 ambulatory [facility] Facility:[facility] Start: 12-22-2024 End: 12-22-2024 ambulatory [facility] Facility:[facility] Start: 12-16-2024 End: 12-16-2024 ambulatory [facility] COMPUTER RECYCLING WORKER-C Work Phone: [facility] Work Phone: Start: 12-16-2024 End: 12-16-2024 Patient encounter procedure Daysi Kim NP-C -Outpatient Breast Imaging Work Phone: Start: 12-16-2024 End: 12-16-2024 ambulatory [facility] Facility:[facility] Start: 12-09-2024 End: 12-09-2024 Patient encounter procedure Daysi Kim NP-C -[facility] Work Phone: Start: 12-09-2024 End: 12-09-2024 ambulatory [facility] Facility:[facility] Start: 09-09-2024 End: 09-09-2024 Patient encounter procedure Elly Leslie COMPUTER RECYCLING WORKER-C -[facility] Work Phone: Start: 09-09-2024 End: 09-09-2024 ambulatory [facility] Facility:[facility] Start: 02-06-2024 End: 02-11-2024 ambulatory GINA MCKEON MD Facility:B Start: 02-06-2024 End: 02-10-2024 Outreach Lab GINA MCKEON MD [facility] Start: 01-16-2024 End: 01-16-2024 ambulatory [facility] Work Phone: Start: 01-16-2024 End: 01-16-2024 Patient encounter procedure [facility]-Ultrasound, [facility] Work Phone: Start: 08-08-2023 End: 08-08-[address] Freida Napier Work Phone: [facility] Work Phone: Start: 08-08-2023 End: 08-08-[address] Freida Napier Work Phone: [facility] Start: 08-07-2023 End: 08-07-[address] Freida Napier Work Phone: [facility] Work Phone: Start: 07-31-2023 End: 07-31-[address] Freida Napier Work Phone: [facility] Work Phone: Start: 06-20-2023 End: 06-20-[address] Mike Shafer [facility] Work Phone: Start: 06-20-2023 End: 06-20-[address] Mike Shafer [facility]-Outpatient Breast Imaging Work Phone: Start: 05-01-2023 End: 05-01-2023 Non-patient / Non-visit Dr. Mike Shafer [facility] Work Phone: Start: 05-01-2023 End: 05-01-2023 Admission to same day surgery center Dr. Mike Shafer Work Phone: [facility]-Surgical Day Care Start: 05-01-2023 End: 05-01-[address] Mike Shafer Work Phone: [facility] Work Phone: Start: 03-27-2023 End: 03-27-[address] Mike Shafer Work Phone: [facility]-Pulmonary Medicine [facility] Work Phone: Start: 02-20-2023 End: 02-20-[address] Mike Shafer Work Phone: [facility] Work Phone: Start: 02-20-2023 End: 02-20-[address] Mike Shafer Work Phone: [facility], [facility] Start: 01-27-2023 End: 01-27-[address] Mike Shafer Work Phone: [facility] Start: 12-27-2022 End: 12-27-[address] Mike Shafer Work Phone: [facility] Work Phone: Start: 12-27-2022 End: 12-27-[address] Mike Shafer Work Phone: [facility]-Laboratory Start: 12-03-2022 End: 12-03-[address] Mike Shafer Work Phone: [facility] Start: 12-03-[address] Mike Shafer Work Phone: [facility] Oncology Start: 09-04-2022 End: 09-04-[address] Mike Shafer Work Phone: [facility] Work Phone: Start: 09-04-2022 End: 09-04-[address] Mike Shafer Work Phone: [facility]-Laboratory Start: 09-04-2022 End: 09-04-[address] Mike Shafer Work Phone: [facility] Start: 07-18-2022 End: 07-18-[address] Mike Shafer Work Phone: [facility] Work Phone: Start: 07-18-2022 End: 07-18-[address] Mike Shafer Work Phone: [facility]-Laboratory, Specimen Start: 07-09-2022 End: 07-09-[address] Mike Shafer Work Phone: [facility]-Ultrasound, [facility] Start: 06-28-2022 End: 06-28-[address] Mike Shafer Work Phone: [facility] Work Phone: Start: 06-28-2022 End: 06-28-[address] Mike Shafer Work Phone: [facility]-Ultrasound, [facility] Start: 06-25-2022 Non-patient / Non-visit Dr. Pramod Shafer Work Phone: [facility] Start: 06-18-2022 End: 06-18-[address] Mike Shafer Work Phone: [facility] Work Phone: Start: 06-18-2022 End: 06-18-[address] Mike Shafer Work Phone: [facility]-Outpatient Breast Imaging Start: 06-06-2022 End: 06-06-[address] Mike Shafer Work Phone: [facility] Start: 06-06-[address] Mike Shafer Work Phone: [facility] Oncology Start: 03-21-2022 End: 03-21-[address] Mike Shafer Work Phone: [facility]-Pulmonary Medicine [facility] Start: 10-31-2015 End: 10-31-2015 Office outpatient visit [...] Date Procedure Procedure Detail Performing Clinician Start: 06-08-2025 Dual energy X-ray absorptiometry Lester Mckay COMPUTER RECYCLING WORKER-C Work Phone: Start: 05-24-2025 Blood pressure within normal parameters - no follow-up required Claudio Orozco MD Work Phone: Start: 05-24-2025 BMI documented as above normal parameters - follow-up documented Claudio Orozco MD Work Phone: Start: 05-24-2025 Current tobacco non-user cad cap copd pv dm Claudio Orozco MD Work Phone: Start: 05-24-2025 Documentation of current medications Claudio Orozco MD Work Phone: Start: 05-24-2025 Pain assessment documented as negative - follow-up not required Claudio Orozco MD Work Phone: Start: 02-07-2025 Radionuclide whole body bone study Lester Mckay COMPUTER RECYCLING WORKER-C Work Phone: Start: 01-28-2025 Creatinine blood Lester Mckay COMPUTER RECYCLING WORKER-C Work Phone: Start: 01-28-2025 CT of thorax, abdomen and pelvis with contrast Lester Mckay COMPUTER RECYCLING WORKER-C Work Phone: Start: 01-27-2025 Procedure Lester Mckay COMPUTER RECYCLING WORKER-C Work Phone: Start: 01-06-2025 Biopsy of breast Lester Mckay COMPUTER RECYCLING WORKER-C Work Phone: Start: 12-16-2024 Bilateral mammography Lester Mckay COMPUTER RECYCLING WORKER-C Work Phone: Start: 12-16-2024 Ultrasonography of breast Lester Mckay COMPUTER RECYCLING WORKER-C Work Phone: Start: 08-05-2024 Estimated creatinine clearance Lester Mckay COMPUTER RECYCLING WORKER-C Work Phone: Start: 08-05-2024 Measurement of renal function Lester Mckay COMPUTER RECYCLING WORKER-C Work Phone: Comment on above: GFR Calc Start: 01-16-2024 Transvaginal echography Start: 06-20-[address] Mike Shafer Start: 05-01-2023 Cysto,Biopsy,Fulguration ,Bladder Tumor (Not Applicable) Dr. Mike Shafer Work Phone: Start: 02-20-2023 Dual energy X-ray absorptiometry Dr. Mike Shafer Work Phone: Start: 02-20-[address] Mike Shafer Work Phone: Start: 07-09-[address] Mike Shafer Work Phone: Start: 06-28-[address] Mike Shafer Work Phone: Start: 06-18-[address] Mike Shafer Work Phone: Start: 06-18-[address] Mike Shafer Work Phone: Start: 10-06-2016 Biopsy of breast GINA MCKEON MD Start: 10-06-2016 Lumpectomy of left breast JOSH JEFFERS DO Start: 12-05-2015 End: 12-05-2015 Sleep Study Report Procedure Note: See Note; NOTES: [facility] [address] [place] [address] Polysomnography with NCPAP MR#: [id number] Acct: [id number] Name: AMAYA GARCIA Rep #: [id number] : 1955 59 From: Nilo Kohli MD [...] version). Please note that a reference to [facility] AHI in this report is consistent with the current Hypopnea definition according to Medicare Criteria and an AAS AHI reference is consistent with the current Hypopnea definition according to the AASM criteria and is recognized by [facility] as the RDI. PROCEDURE: The study was attended continuously by a registered veterinary technician. Monitored parameters included left and right [...] calculated body mass index of 36.8 and [place] Sleepiness Scale score of 3/24. The patient [...] Celebrex, Crestor, esterase. MASK USED DURING TITRATION: [employer] Wanda view full face mask. It should [...] Kohli Jr., MRosita. 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 ABNORMAL Analilia A Gochikuru Work Phone: Comment on above: ekg showed normal sinus rhythym, normal axis, no acute st/t wave changes Start: 08-15-2015 End: 08-16-2015 Bilat Scrn Digital AND CAD Procedure Note: See Note; NOTES: [facility] Imaging Services [address] [place] [address] Verdana 4d Bilat Scrn Digital AND CAD MR#: [id number] Acct: [id number] Name: AMAYA GARCIA Rep #: [id number] : 1955 F 59 From: Douglas Hauser MD PCP: Analilia Strauss DO Status: REG CLI Study: Bilat Scrn Digital AND CAD Date of Exam: 08/15/15 Exam# [id number] Ordering Dr: Gina Mckeon MD MAMMOGRAPHY - [...] Douglas Hauser MD at 7:57 EST Tel [phone], Service support [phone], CC: Gina Mckeon MD; Analilia Strauss DO Claims Vice President: Signed Analilia Strauss DO Work Phone: Start: 07-28-2015 End: 07-28-2015 Sleep Study Report Procedure Note: See Note; NOTES: [facility] [address] [place] [address] Polysomnography MR#: [id number] Acct: [id number] Name: AMAYA GARCIA Rep #: [id number] : 1955 59 From: Nilo Kohli MD PCP: Analilia Strauss DO Status: REG CLI Ordering Dr.: Analilia Strauss DO Date: 07/21/15 Sex: F C DATE OF SERVICE: 07/21/2015 SCORING RULES: Respiratory events were acquired and scored in accordance with the Recommended Standards and Specifications as outlined in the AASM Manual for the Scoring of Sleep and Associated Events ( most recent version). Please note that a reference to [facility] AHI in this report is consistent with the current Hypopnea definition according to Medicare Criteria and an AAS AHI reference is consistent with the current Hypopnea definition according to the AASM criteria and is recognized by [facility] as the RDI. PROCEDURE: The study was attended continuously by a registered veterinary technician. Monitored parameters included left and right [...] calculated body mass index of 36.8 and [place] sleepiness scale score of 3/24. The patient [...] PHYSICIAN: Jr. MD Nilo Garcia MD T: JD JOB: [id number] CC: Nilo Kohli MD 21 2107/28/15 0808 <Electronically signed by Nilo Kohli MD> Date Nilo Kohli MD Co-signature (if applicable) Date Signed Analilia Caldwell Fast DO Work Phone: Start: 06-27-2015 End: 06-27-2015 Spmtry w/vc expiratory pamela w/wo mxml vol vntj _ Analilia A Fast DO Work Phone: Comment on above: good effort and curve normal Start: 06-22-2015 End: 06-22-2015 12 lead ECG Procedure Note: See Note; NOTES: [facility] Cardiovascular Services [address] [place] [address] 12 Lead EKG 06/21/15732 MR#: [id number] Acct: [id number] Name: AMAYA GARCIA Rep #: [id number] : 1955 59 From: Claudio Bolanos MD [...] undetermined Abnormal ECG Confirmed by CLAUDIO BOLANOS ([id number]), publishing editor ROSALIE VALENTINE ([id number]) on 06/22/2015 10:41:56 AM Referred By: EITAN Confirmed By:CLAUDIO BOLANOS 06/22/15 1042 Date Claudio Bolanos MD CC: Analilia Strauss DO Date Dictated: 06/21/1533 Date Transcribed: 06/21/15732 Claims Vice President: Signed Analilia Caldwell Fast DO Work Phone: Arthroscopy of shoulder EVEL SHANNAN BAINOTIC DO Comment on above: BOTH section GINA Wolfe MD Colonoscopy Anjali Ashley harrell Comment on above: Done on 05/16/15- showed scattered Divert iculi to colon. Repeat in 7 years. Colonoscopy JOSH KLENOTI C DO Decompression of med gabriel nerve JOSH BAINOTIC DO Comment on above: TRIGGER FINGER Endometrial ablation GINA MCKEON MD H/O: section History of section Dr. Mike Shafer Work Phone: H/O: section Section Darion Mendez H/O: surgery Tonsillectomy Anjali alegre H/O: tubal ligation History of tubal liga tion Dr. Mike Shafer Work Phone: History of mastectomy History of lumpecto my Dr. Mike Shafer Work Phone: History of tonsillectomy History of tonsillectomy and adenoidectomy Dr. Mike Shafer Work Phone: Laboratory test resu lt abnormal Abnormal laboratory test result Analilia A Fast DO Work Phone: Laboratory test resu lt abnormal Abnormal laboratory test result (796.4) Analilia Fast DO Work Phone: left shoulder- 2010- [facility]- bone spurs Anjali Mendez right wrist surgery - [facility] 2015 Anjali Mendez Surgery (qualifier value) GINA MCKEON MD Comment on above: hand, shoulder Tonsillectomy GINA Sampson Urine culture Dr. Mike flores Work Phone: Urine culture Dr. Mike flores Work Phone: Urine culture Dr. Mike flores Work Phone: Plan of Treatment Date Care Activity Detail Author Start: 05-30-2025 Cancer Ag 15-3 [Presence] in Serum or Plasma [facility] Start: 05-30-2025 Cancer Ag 27-29 [Presence] in Serum or Plasma [facility] Start: 05-30-2025 [facility] Start: 03-10-2025 Thyroid stimulating hormone measurement [facility] Start: 03-10-2025 Urine microalbumin/creatinine ratio measurement [facility] Start: 03-10-2025 Vitamin D, 25-hydroxy measurement [facility] Start: 01-27-2025 Patient referral [facility] Work Phone: Start: 01-19-2025 Patient referral [facility] Work Phone: Start: 05-01-2023 Anes transurethral w/urethrocystoscopy nos ANESTH BLADDER SURGERY [facility] Start: 05-01-2023 Cysto w/destruction of lesions CYSTOSCOPY AND TREATMENT [facility] Start: 05-01-2023 Patient discharge [facility] Start: 05-01-2023 Hemoglobin A1c/Hemoglobin.total in Blood [facility] Start: 06-25-2022 Patient referral [facility] Work Phone: Start: 06-22-2018 End: 07-14-2017 Pulmonary Function Test - complete Pulmonary Function Test - complete [facility] Phone: Start: 05-14-2018 [facility] [facility] Start: 08-13-2017 [facility] Start: 07-14-2017 End: 07-14-2017 BWA BWA [facility] [employer] Work Phone: Start: 07-14-2017 End: 07-14-2017 Follow Up Appt 1 year Follow Up Appt 1 year [facility] [employer] Phone: Start: 07-14-2017 End: 07-14-2017 Appointment Appointment [facility] [employer] Phone: Start: 06-18-2017 End: 06-18-2017 Ct thorax w/o contrast material CT Chest without contrast [facility] [employer] Phone: Start: 06-18-2017 End: 06-18-2017 Follow Up Appt 1 month Follow Up Appt 1 month [facility] [employer] Work Phone: Start: 06-18-2017 End: 06-18-2017 Pulmonary Function Test - complete Pulmonary Function Test - complete [facility] [employer] Work Phone: Start: 06-18-2017 End: 06-18-2017 Appointment Appointment [facility] [employer] Work Phone: Start: 06-18-2017 End: 06-18-2017 Ct thorax w/o dye CT Chest without contrast [facility] Work Phone: Start: 06-18-2017 End: 06-18-2017 Follow Up Appt 1 month Follow Up Appt 1 month [facility] Phone: Start: 06-18-2017 End: 06-18-2017 Pulmonary Function Test - complete Pulmonary Function Test - complete [facility] Phone: Start: 10-31-2015 Procedure Education Eprescribed prescriptions (G8553) [facility] Work Phone: Start: 10-31-2015 Carboxyhemoglobin quantitative CARBON MONOXIDE (26570) [facility] Work Phone: Start: 10-31-2015 Blood count manual cell count each CBC with auto diff (59503) [facility] Work Phone: Start: 10-31-2015 25 hydroxy includes fractions if performed Vitamin D Hydroxy (00737) [facility] Work Phone: Start: 10-31-2015 Comprehensive metabolic panel METABOLIC PANEL, COMPREHENSIVE (49392) [facility] Work Phone: Start: 10-31-2015 Lipid panel LIPID PANEL (74128) [facility] Work Phone: Start: 06-30-2015 Carboxyhemoglobin quantitative CARBON MONOXIDE (68140) [facility] Work Phone: Start: 06-27-2015 Procedure Education Eprescribed prescriptions (G8553) [facility] Work Phone: Start: 06-27-2015 Lipid panel LIPID PANEL (92649) [facility] Work Phone: Start: 06-27-2015 Blood count complete auto&auto difrntl wbc CBC with auto diff (75429) [facility] Work Phone: Start: 06-27-2015 Hemoglobin glycosylated a1c Hemoglobin Glyclated (HGB A1C) (83713) [facility] Work Phone: Start: 06-27-2015 Comprehensive metabolic panel METABOLIC PANEL, COMPREHENSIVE (67494) [facility] Work Phone: Start: 06-27-2015 25 hydroxy includes fractions if performed Vitamin D Hydroxy (70885) [facility] Work Phone: Start: 02-06-2015 Procedure Education Eprescribed prescriptions (G8553) [facility] Work Phone: Start: 02-06-2015 Urnls dip stick/tablet reagent auto microscopy URINALYSIS, W/ MICRO (13200) [facility] Work Phone: Start: 02-06-2015 Urine albumin quantitative MICROALBUMIN: CREATININE RATIO (13762) AND (61960) [facility]; [facility] Work Phone: Start: 02-06-2015 Blood count complete auto&auto difrntl wbc CBC W/AUTO DIFF WBC (98682) [facility] Work Phone: Start: 02-06-2015 Comprehensive metabolic panel METABOLIC PANEL, COMPREHENSIVE (23484) [facility] Work Phone: Start: 02-06-2015 25 hydroxy includes fractions if performed Vitamin D Hydroxy (33039) [facility] Work Phone: Start: 02-06-2015 Lipid panel LIPID PANEL (70286) [facility] Work Phone: Start: 07-27-2013 25 hydroxy includes fractions if performed Vitamin D Hydroxy (54097) [facility] Work Phone: Start: 07-27-2013 Lipid panel LIPID PANEL (03807) [facility] Work Phone: Start: 07-27-2013 Comprehensive metabolic panel METABOLIC PANEL, COMPREHENSIVE (83136) [facility] Work Phone: Start: 07-27-2013 Urine albumin quantitative MICROALBUMIN: CREATININE RATIO (91482) AND (12234) [facility]; [facility] Work Phone: Start: 07-27-2013 Hemoglobin glycosylated a1c HgA1C , Office (35786) [facility]; [facility] Work Phone: Start: 07-27-2013 Provider Instructions for Treatment Diet, Exercise, and Wt loss [facility] Work Phone: Start: 07-05-2013 Blood count manual cell count each CBC with manual diff (71631) [facility] Work Phone: Start: 07-05-2013 Comprehensive metabolic panel METABOLIC PANEL, COMPREHENSIVE (32003) [facility] Work Phone: Start: 07-05-2013 Assay of thyroid stimulating hormone tsh TSH (THYROID STIMULATING HORMONE) (32081) [facility] Work Phone: Start: 07-05-2013 Lipid panel LIPID PANEL (23078) [facility] Work Phone: Start: 07-05-2013 25 hydroxy includes fractions if performed CALCIFEDIOL (67124) [facility] Work Phone: Start: 07-05-2013 Urinls dip stick/tablet reagnt non-auto micrscpy URINALYSIS W MICROSCOPY (63573) [facility] Work Phone: Start: 11-24-2012 Provider Instructions for Treatment Follow up in 1 month [facility] Work Phone: Start: 11-03-2012 Calcium total CALCIUM SERUM (30550) [facility] Work Phone: Start: 11-02-2012 Potassium serum plasma/whole blood POTASSIUM SERUM (70492) [facility] Work Phone: Start: 10-23-2012 Patient Education Obesity *: obesity [facility] Work Phone: Start: 08-19-2012 Assay of thyroid stimulating hormone tsh TSH (19885) [facility] Work Phone: Start: 08-19-2012 25 hydroxy includes fractions if performed Vitamin D Hydroxy (52453) [facility] Work Phone: Start: 08-19-2012 Blood count manual cell count each CBC WITH MANUAL DIFF (93767) [facility] Work Phone: Start: 08-19-2012 Comprehensive metabolic panel METABOLIC PANEL, COMPREHENSIVE (74350) [facility] Work Phone: Start: 08-19-2012 Urine albumin quantitative MICROALBUMIN: CREATININE RATIO (94246) AND (03677) [facility]; [facility] Work Phone: Start: 08-19-2012 Hemoglobin glycosylated a1c Hemoglobin Glyclated (HGB A1C) (17711) [facility] Work Phone: Start: 08-19-2012 Lipid panel LIPID PANEL (15105) [facility]; [facility] Work Phone: Start: 03-16-2012 Urine albumin quantitative MICROALBUMIN: CREATININE RATIO (11912) AND (64136) [facility]; [facility] Work Phone: Start: 03-16-2012 Comprehensive metabolic panel METABOLIC PANEL, COMPREHENSIVE (48718) [facility] Work Phone: Start: 03-16-2012 Assay of thyroid stimulating hormone tsh TSH (98435) [facility]; [facility] Work Phone: Start: 03-16-2012 25 hydroxy includes fractions if performed Vitamin D Hydroxy (21856) [facility]; [facility] Work Phone: Start: 03-16-2012 Hepatic function panel HEPATIC FUNCTION PANEL (14038) [facility]; [facility] Work Phone: Start: 03-16-2012 Lipid panel LIPID PANEL (14440) [facility] Work [...] cell count each CBC WITH MANUAL DIFF (20220) [facility]; [facility] Work Phone: Start: 11-05-2011 Comprehensive metabolic panel METABOLIC PANEL, COMPREHENSIVE (53254) [facility]; [facility] Work Phone: Start: 11-05-2011 25 hydroxy includes fractions if performed Vitamin D Hydroxy (00543) [facility]; [facility] Work Phone: Start: 11-05-2011 Lipid panel LIPID PANEL (29272) [facility]; [facility] Work Phone: Start: 11-05-2011 Provider Instructions for Treatment Diet, Exercise, and Wt loss [facility] Work Phone: Start: 07-22-2011 Hepatic function panel HEPATIC FUNCTION PANEL (57839) [facility]; [facility] Work Phone: Comment on above: oct 30 oct 03 sep 18 sep 04 aug 19 now in jul Start: 04-15-2011 25 hydroxy includes fractions if performed Vitamin D Hydroxy (12542) [facility]; [facility] Work Phone: Start: 04-15-2011 Comprehensive metabolic panel METABOLIC PANEL, COMPREHENSIVE (46827) [facility] Work Phone: Start: 04-15-2011 Lipid panel LIPID PANEL (81285) [facility]; [facility] Work Phone: Start: 11-06-2010 Potassium serum plasma/whole blood Potassium Serum (21868) [facility]; [facility] Work Phone: Start: 10-22-2010 Comprehensive metabolic panel METABOLIC PANEL, COMPREHENSIVE (07041) [facility]; [facility] Work Phone: Start: 10-22-2010 Blood count manual cell count each CBC WITH MANUAL DIFF (99376) [facility]; [facility] Work Phone: Start: 10-22-2010 25 hydroxy includes fractions if performed Vitamin D Hydroxy (00454) [facility]; [facility] Work Phone: Start: 10-22-2010 Lipid panel LIPID PANEL (14147) [facility]; [facility] Work Phone: Start: 10-22-2010 C-reactive protein C-REACTIVE PROTEIN (85478) [facility]; [facility] Work Phone: Start: 10-22-2010 Sedimentation rate rbc non-automated SED RATE ERYTHROCYTE (88661) [facility]; [facility] Work Phone: Start: 08-07-2010 Provider Instructions for Treatment FOLLOW UP NEEDED [facility] Work Phone: Start: 01-16-2010 Comprehensive metabolic panel METABOLIC PANEL, COMPREHENSIVE (26264) [facility]; [facility] Work Phone: Start: 01-16-2010 Urnls dip stick/tablet reagent auto microscopy URINALYSIS, W/ MICRO (10455) [facility]; [facility] Work Phone: Start: 01-16-2010 Assay of thyroid stimulating hormone tsh TSH (34190) [facility]; [facility] Work Phone: Start: 01-16-2010 Blood count manual cell count each CBC WITH MANUAL DIFF (70784) [facility]; [facility] Work Phone: Start: 10-31-2009 25 hydroxy includes fractions if performed Vitamin D Hydroxy (65685) [facility]; [facility] Work Phone: Start: 10-31-2009 Hepatic function panel HEPATIC FUNCTION PANEL (30598) [facility]; [facility] Work Phone: Start: 10-31-2009 Lipid panel LIPID PANEL (02559) [facility]; [facility] Work Phone: Start: 07-05-2009 25 hydroxy includes fractions if performed Vitamin D Hydroxy (47220) [facility]; [facility] Work Phone: Start: 02-22-2009 Urnls dip stick/tablet rgnt auto w/o microscopy URINALYSIS W/O MICRO (65384) [facility]; [facility] Work Phone: Start: 02-22-2009 Blood count manual cell count each CBC WITH MANUAL DIFF (16059) [facility]; [facility] Work Phone: Start: 02-22-2009 Assay of thyroid stimulating hormone tsh TSH (16369) [facility]; [facility] Work Phone: Start: 02-22-2009 Comprehensive metabolic panel METABOLIC PANEL, COMPREHENSIVE (78099) [facility]; [facility] Work Phone: Start: 02-22-2009 Hepatic function panel HEPATIC FUNCTION PANEL (43274) [facility]; [facility] Work Phone: Start: 02-22-2009 Lipid panel LIPID PANEL (83544) [facility]; [facility] Work Phone: Cancer Ag 125 [Units /volume] in Serum or Plasma [facility] Cancer Ag 15-3 [Pres ence] in Serum or Plasma [facility] Cancer Ag 19-9 [Units/volume] in Serum or Plasma [facility] Cancer Ag 27-29 [Pre sence] in Serum or Plasma [facility] Carcinoembryonic Ag [Mass/volume] in Serum or Plasma [facility] CBC W Auto Different ial panel - Blood [facility] metabo lic 1999 [facility] - [facility] - Serum or Plasma [facility] Electrocardiographic procedure [facility] Lactate dehydrogenas e measurement [facility] Lipid 1995 panel - S caleb or Plasma [facility] Lipid 1996 panel - S calbe or Plasma [facility] MG Breast - bilatera l Screening [facility] Work Phone: MG Breast - bilatera l Screening [facility] MR Brain W contrast IV [facility] Work Phone: MR Brain W contrast IV [facility] MR Brain WO and W co ntrast IV [facility] Work Phone: MR Brain WO and W co ntrast IV [facility] Patient Education Stereotactic B reast Biopsy RAD RN Image-Guided Breast Biopsy Discharge Instructions [facility] Work Phone: Patient referral [facility] Work Phone: [facility] [...] Immunizations Immunization Date Immunization Notes Care Provider [facility] 01-04-2021 Covid (Pfizer) Dr. Mike perez Work Phone: [facility] 12-14-2020 Covid (Pfizer) Dr. Mike perez Work Phone: [facility] 07-05-2009 influenza, seasonal, injectable Analilia Fast DO Work Phone: [facility] Work Phone: Comment on above: Lot #[id number] Site-left deltoidDose0.5mlgiven by Brenda Morataya LPN Payers Date Payer Category Payer Medicare [id number] 2025 Private Health Insurance [id number] 2025 Medicare [id number] 2024 Unknown [id number] 2017 Self-pay [id number] 2017 Unknown [id number] 2011 Private Health Insurance [id number] 1957 Unknown [id number] 2.16.840.1.218281.3.579.2.627 1957 Unknown [id number] 2.16.840.1.185875.3.579.2.594 1957 Unknown [id number] 2.16.840.1.268127.3.579.2.627 1957 Unknown [id number] 2.16.840.1.914974.3.579.2.627 1957 Unknown [id number] 2.16.840.1.497777.3.579.2.627 1957 Unknown [id number] .16.840.1.628620.3.579.2.627 1957 Unknown [id number] 2.16.840.1.132409.3.579.2.627 1957 Unknown [id number] 2.16.840.1.348278.3.579.2.627 Unknown [facility] [facility] [employer] [id number] Unknown [employer] [id number] Unknown Unknown [id number] 2.16.840.1.355910.3.579.2.462 Unknown [id number] 2.16.840.1.502980.3.579.2.462 Unknown [id number] 2.16.840.1.281242.3.579.2.462 Unknown [id number] 2.16.840.1.516617.3.579.2.462 Unknown [id number] 2..840.1.238137.3.579.2.462 Unknown [id number] 2.840.1.237439.3.579.2.462 Unknown [id number] 2..840.1.362967.3.579.2.462 Unknown [id number] 2.840.1.813474.3.579.2.462 Unknown [id number] 2.840.1.866128.3.579.2.462 Unknown [id number] 2.840.1.567153.3.579.2.462 Unknown [id number] 2.840.1.820154.3.579.2.462 Unknown [id number] 2..840.1.604929.3.579.2.462 Unknown [id number] 2.840.1.313159.3.579.2.462 Unknown [id number] 2.840.1.679599.3.579.2.462 Unknown [id number] 2.16.840.1.792180.3.579.2.462 Unknown [id number] 2.16.840.1.691674.3.579.2.462 Unknown [id number] 2.16.840.1.214498.3.579.2.462 Unknown [id number] 2.16840.1.207715.3.579.2.462 Unknown [id number] 2.16.840.1.024696.3.579.2.462 Unknown [id number] 2.16.840.1.021226.3.579.2.462 Unknown [id number] 2.16.840.1.627640.3.579.2.462 Social History Date Type Detail Facility Start: 03-21-2022 End: 08-07-2023 Tobacco smoking status PRIS Unknown if ever smoked [facility] Start: 1955 Sex Assigned At Female [facility] Alcohol Use Alcohol Use [facility] Work Phone: Comment on above: Occasional alcohol u se 4 decaf, coke Occasional , heterosexua l [employer] Tobacco Use: Tobacco Use: [facility] Work Phone: Comment on above: Remotely quit tobacc o use 07/22/11, 11/05/11, 12/17/11, 01/20/12 Start: 02-06-2024 End: 05-04-2025 Tobacco smoking status Ex-smoker (finding) [facility] Start: 09-17-2018 End: 12-26-2024 Sex Female (finding) [facility] Sexual Orientation [facility] Start: 05-19-2025 IMPPLASTIC Additional:mar ked breast asymmetry. Wounds have all healed and the scars are softening. Her back has healed well. [facility] NEGATED: Highlighted row [facility] Medical Equipment Procedure Code Equipment Code Equipment Origin al Text Equipment Identifier Dates Breast Implant/Tissue [employer] Insertion Unknown 03/22/25 Unknown Unknown FDA Start: 03-22-2025 Breast Implant/Tissue [employer] Insertion Unknown 03/22/25 Unknown Unknown FDA Start: 03-22-2025 Breast Implant/Tissue [employer] Insertion Unknown 03/22/25 Unknown Unknown FDA Start: 03-22-2025 Breast Implant/Tissue [employer] Insertion Unknown 03/22/25 Unknown Unknown FDA Start: 06-17-2025 Goals Date Patient Goal Desired Activity /State Mental Status Date Assessment Result Facility 05-01-2023 Cognitive function Voice/Name Mariajose Leyva [facility] Work Phone: Clinical Notes 02-09-2024 to 06-23-2025 Note Date & Type Note Facility 06-23-2025 Progress note [facility] 03-25-2025 Hospital Discharge instructions Patient Education 03/25/2025 18:16:16 Nipple-Sparing Mastectomy, Care After Nipple-Sparing Mastectomy, Care After This sheet gives you information about how to care for yourself after your procedure. Your health care provider may also give you more specific instructions. If you have problems or questions, contact your health care provider. What can I expect after the procedure? After the procedure, it is common to have: Breast pain, soreness, or tenderness. Tingling or numbness in the breast and nipple. Swelling or a change in the shape of your breast. Tiredness. Follow these instructions at home: Medicines Take hczv-hkw-izivsik and prescription medicines only as told by your health care provider. Take your antibiotic medicine as told by your health care provider. Do not stop taking the antibiotic even if you start to feel better. Ask your health care provider if the medicine prescribed to you can cause constipation. You may need to take steps to prevent or treat constipation, such as: ?Drink enough fluid to keep your urine pale yellow. ?Take ztth-kyd-itdrauh or prescription medicines. ?Eat foods that are high in fiber, such as beans, whole grains, and fresh fruits and vegetables. ?Limit foods that are high in fat and processed sugars, such as fried or sweet foods. Bathing Take sponge baths until your health care provider says that you can start showering or bathing. Do not take baths, swim, or use a hot tub until your health care provider approves. Activity Return to your normal activities as told by your health care provider. Ask your health care provider what activities are safe for you. It may take several weeks to return to full activity. Do not lift anything that is heavier than 10 lb (4.5 kg), or the limit that you are told, until your health care provider says that it is safe. Ask friends and family to help with chores, including early childhood education specialist, meal preparation, laundry, and shopping. Do arm exercises each day as told by your health care provider. This will help you avoid stiffness. Driving Do not drive until your health care provider approves. Do not drive or use heavy machinery while taking prescription pain medicine. Incision care If you have a drain in place, follow your health care provider's instructions for drain care. This may include emptying the drain and keeping track of the amount of drainage. Follow instructions from your health care provider about how to take care of your incision: ?You may be told to keep your bandage (dressing) dry and not change it. Remove the dressing only as told by your health care provider. ?If you are told to change your dressing, do so as told by your health care provider. Wash your hands with soap and water before you change your dressing. If soap and water are not available, use hand layout technician. ?Leave stitches, skin glue, or adhesive strips in place. These skin closures may need to stay in place for 2 weeks or longer. If adhesive strip edges start to loosen and curl up, you may trim the loose edges. Do not remove adhesive strips completely unless your health care provider tells you to do that. Check your incision area every day for signs of infection. Check for: ?Redness, swelling, or pain. ?Fluid or blood. ?Warmth. ?Pus or a bad smell. General instructions Do not wear a bra after your procedure so your incision can heal. Your health care provider will tell you when you can wear a bra again. Do not use any products that contain nicotine or tobacco, such as cigarettes, e-cigarettes, and chewing tobacco. These can delay healing and increase your risk for nipple necrosis. If you need help quitting, ask your health care provider. Keep all follow-up visits as told by your health care provider. This is important. Contact a health care provider if you have: Chills or a fever. Signs of infection at your drain or incision area. Any change in the color or the shape of your nipple. Pain that is not relieved by your pain medicine. Get help right away if you have: A sudden onset of chest pain. Difficulty breathing. A fast heart rate. Summary After a nipple-sparing mastectomy, it is common to have some breast pain, tenderness, and numbness. Take tdht-cbz-ufmpboc and prescription medicines only as told by your health care provider. Return to your normal activities as told by your health care provider. Ask your health care provider what activities are safe for you. It may take several weeks to return to full activity. Follow instructions from your health care provider about how to take care of your incision. Keep all follow-up visits as told by your health care provider. This is important. This information is not intended to replace advice given to you by your health care provider. Make sure you discuss any questions you have with your health care provider. Document Released: 03/23/2019 Document Revised: 01/14/2020 Document Reviewed: 03/23/2019 [employer] Patient Education 2020 [email or web address] Follow Up Care 02/24/2025 12:02:16 With:CLAUDIO OROZCO Address: [address] [place] [address]- [phone] Business (1) When:1-2 days Comments:Please call office to schedule follow up appointment With:BRANDO CHACON Address: [address] [place] [address] Business (1) When:1-2 days With:JOSH JEFFERS DO Address: [address] [place] [address] [place] [address]- [phone] When:03/30/2025 13:40:00 [facility] 03-25-2025 Surgery Hospital Progress note Subjective Still sore, but improving and feels stronger today Objective Vitals and Measurements T: 36.4 C (Oral) TMIN: 36.4 C (Oral) TMAX: 36.5 C (Oral) HR: 71 RR: 16 BP: 127/85 SpO2: 91% Intake and Output 7AM Yesterday to 7AM Today Intake and Output (Last 24 hours) Intake Administration Information 800.00 Oral Intake 720.00 Output Surgical Drain, Tube Output: 317.50 Urine Voided 2600.00 Stool Count 0.00 Total Summary Total Intake 1520.00 Total Output 2917.50 Fluid Balance -1397.50 Physical Exam Bilateral mastectomy skin flaps (right mastectomy with automotive professional, and left latissimus flap) are healthy appearing without ecchymosis, drains are dark serosanguineous. Weight Dosing Weight: 87 kg (03/22/25) Dosing Weight: 87 kg (03/22/25) Medications Medications (19) Active Scheduled: (10) acetaminophen 500 mg Tablet 1,000 mg 2 tab(s), Oral, q6h ceFAZolin syringe 1 g 10 mL, IV Push (INT), q8h cholecalciferol 25 mcg tablet (Vit D3 1000 units) 25 mcg 1 tab(s), Oral, qAM escitalopram 10 mg tablet 10 mg 1 tab(s), Oral, qHS ezetimibe 10 mg tablet 10 mg 1 tab(s), Oral, qHS gabapentin 300 mg Capsule 300 mg 1 cap(s), Oral, qHS oxybutynin 5 mg ER tablet 5 mg 1 tab(s), Oral, qDay rosuvastatin 20 mg tablet 40 mg 2 tab(s), Oral, qHS traZODONE 150 mg Tablet 150 mg 1 tab(s), Oral, qHS valacyclovir 500 mg Tablet 500 mg 1 tab(s), Oral, qHS Continuous: (1) D5/LR 1,000 mL 1,000 mL, Intravenous, 50 mL/hr PRN: (8) acetaminophen-OXYcodone 325 mg-5 mg Tablet 1 tab(s), Oral, q4h dextrose 50% Solution Disp syringe 50 mL 25 gram(s) 50 mL, IV Push, AsDirected melatonin 3 mg tablet 3 mg 1 tab(s), Oral, qHS morphine 2 mg/mL 1 mL syringe 2 mg 1 mL, IV Push, q1h morphine 2 mg/mL 1 mL syringe 4 mg 2 mL, IV Push, q1h oxyCODONE 10 mg Tab (Immediate Release) 10 mg 1 tab(s), Oral, q4h oxycodone 5 mg tablet (immediate release) 5 mg 1 tab(s), Oral, q4h prochlorperazine 10 mg/2 mL vial 5 mg 1 mL, IV Push, q6h Lab Results No 36 Hour Lab Data EKG No qualifying data available. Assessment/Plan Breast cancer Postop day 3 bilateral mastectomy, bilateral sentinel lymph node biopsy right breast automotive professional placement, left breast latissimus dorsi flap has 03/22/2025 Continue drains per plastic surgery team Follow-up in the clinic with me as scheduled 03/30/25 Class 2 obesity with body mass index (BMI) of 36.0 to 36.9 in adult Leukocytosis DOROTEO on CPAP S/P mastectomy Digitally Signed by JOSH JEFFERS DO on 03/25/2025 04:09 PM [facility] 03-25-2025 Note Discharge Instructions Thank you for allowing [facility] to assist you with your healthcare needs. The following is important discharge information regarding your hospital visit. Your Care Team BRANDO CHACON MD Your Diagnosis Breast cancer Class 2 obesity with body mass index (BMI) of 36.0 to 36.9 in adult Leukocytosis DOROTEO on CPAP S/P mastectomy What to do next Scheduled Follow-Up Appointments Appointment Type When With Where Contact Information StatusBS OV Post Op 03/30/2025 01:40 PM EDT JOSH JEFFERS DO [facility] Confirmed Follow Up Appointments Follow Up with CLAUDIO OROZCO When:Within 1-2 days Where:[address] [facility] [address] [place] [place] [address]- [phone] Business (1) Additional Information: Please call office to schedule follow up appointment Follow Up with BRANDO CHACON When:Within 1-2 days Where:[address] [place] [address]- Business (1) Follow Up with JOSH JEFFERS DO When:03/30/2025 01:40 PM EDT Where:[address] [facility] [place] [address]- [phone] The Following Activity and Diet Have Been Ordered for You No qualifying data available. No qualifying data available. The Following Equipment Has Been Ordered for You No qualifying data available. The Following Treatments Have Been Ordered for You Discharge Labs No qualifying data available. Discharge Radiology No qualifying data available. Other Therapies No qualifying data available. Post Acute Orders No qualifying data available. Someone Will Contact You Regarding These Home Health Referrals No home referrals have been ordered for you. No one will call you. Allergies isosulfan blue(Severe) Hives Medications Please ask your primary doctor or pharmacist before taking any other medication not listed, including over the counter drugs, herbal medications, vitamins and or supplements as they may interact with your home medications. What How Much When Why Instructions Last Dose New acetaminophen (acetaminophen 500 mg oral tablet) 2 tab(s) by mouth Three (3) times a day as needed for as needed for pain Refills: 1 Pickup at [facility]74 New doxycycline (doxycycline hyclate 100 mg oral tablet) 1 tab(s) by mouth Two (2) times a day Duration: 20 Days while the drain is in Pickup at [facility] 074 New ibuprofen (ibuprofen 800 mg oral tablet) 1 tab(s) by mouth Three (3) times a day as needed for as needed for pain Refills: 1 Pickup at [facility] 07 New oxyCODONE (oxyCODONE 5 mg oral tablet ( IMMEDIATE release )) 1 tab(s) by mouth Every 8 hours as needed for as needed for pain S/P mastectomy Breast cancer Duration: 4 Days BREAKTHROUGH PAIN ONLY if other meds are not enough to control pain. Pickup at [facility] [id number] Pharmacy Information [place] [address]: [address] [place], [place] [phone] What How Much When Comments Stop Taking cholecalciferol (Vitamin D3 25 mcg (1000 intl units) oral capsule) 1 cap by mouth Once a day (in the morning) Stop Taking escitalopram (escitalopram 10 mg oral tablet) 1 tab(s) by mouth Daily at bedtime Stop Taking ezetimibe (ezetimibe 10 mg oral tablet) 1 tab(s) by mouth Daily at bedtime Stop Taking fesoterodine (Fesoterodine 4 mg oral tablet, extended release) 1 tab(s) by mouth Once a day (in the morning) Stop Taking rosuvastatin (rosuvastatin 40 mg oral tablet) 1 tab(s) by mouth Daily at bedtime Stop Taking traZODone (traZODone 150 mg oral tablet) 1 tab(s) by mouth Daily at bedtime Stop Taking valACYclovir (valACYclovir 500 mg oral tablet) 1 tab(s) by mouth Daily at bedtime Please take this list to your next doctor s visit. Bring all medications you take, including over the counter medications, herbals and other supplements with you to your doctor s visit. Patients and families are reminded to discard old lists and to update any records with all medication providers or retail pharmacies. Medication Leaflets oxycodone (ox i KOE done) Oxaydo, OxyCONTIN, Roxicodone, RoxyBond, Xtampza ER What is the most important information I should know about oxycodone? MISUSE OF OPIOID MEDICINE CAN CAUSE ADDICTION, OVERDOSE, OR . Fatal side effects may occur if you also drink alcohol or use other drugs that cause drowsiness or slow breathing. Using opioid medicine during may cause life-threatening withdrawal symptoms in the . What is oxycodone? Oxycodone is an opioid pain medication used to treat moderate to severe pain. Oxycodone is usually given after other treatments did not work or were not tolerated. Extended-release oxycodone is for trtdmq-sbf-kotzx treatment of severe and chronic pain that requires longer treatment. This medicine is not for use on an as-needed basis. Oxycodone may also be used for purposes not listed in this medication guide. What should I discuss with my healthcare provider before taking oxycodone? You should not use oxycodone if you are allergic to it, or if you have severe asthma, breathing problems or a stomach or bowel obstruction (including paralytic ileus). Tell your doctor if you have ever had: other breathing problems, sleep apnea (breathing that stops during sleep); a head injury, brain tumor, high pressure inside the skull, or seizures, drug or alcohol addiction, or mental illness; if you have used an MAO inhibitor in the past 14 days, such as isocarboxazid, linezolid, methylene blue injection, phenelzine, or tranylcypromine; urination problems, problems with your gallbladder, pancreas, thyroid, or adrenal gland; or liver or kidney disease. Most forms of oxycodone are not approved for use in people under 18 years old. The extended-release tablets should not be given to a child younger than 11 years old. Tell your doctor if you also use stimulant medicine, opioid medicine, herbal products, or medicine for depression, mental illness, Parkinson's disease, migraine headaches, serious infections, or prevention of nausea and vomiting. An interaction with oxycodone could cause a serious condition called serotonin syndrome. May harm an unborn baby. Tell your doctor if you are or plan to become . If you use oxycodone during , your baby could be born with life-threatening withdrawal symptoms, and may need medical treatment for several weeks. Do not breastfeed. Oxycodone in breast milk can cause life-threatening side effects in a nursing baby. Long-term oxycodone may affect fertility in men or women. could be harder to achieve while either parent is using this medicine. How should I take oxycodone? Follow the directions on your prescription label and read all medication guides or instruction sheets. Never use oxycodone in larger amounts, or for longer than prescribed. Tell your doctor if you feel an increased urge to use more of this medicine. Never share opioid medicine with another person, especially someone with a history of drug addiction. MISUSE CAN CAUSE ADDICTION, OVERDOSE, OR . Keep the medicine where others cannot get to it. Selling or giving away this medicine is against the law. Never crush a pill or use the liquid to inhale the mixture or inject it into your vein. This could result in . Your dose needs may change if you switch to a different brand, strength, or form of this medicine. Avoid medication errors by using exactly as directed on the label, or as prescribed by your doctor. Stop taking all other zefgna-wtl-tpxkg opioid pain medicines when you start taking extended-release oxycodone. Swallow the extended-release forms whole to avoid exposure to a potentially fatal overdose. Do not crush, chew, break, open, or dissolve. Take the extended-release capsules with food. Read and carefully follow the instructions for use on how to prepare and take this medicine if you cannot swallow extended release capsules whole or you use a feeding tube. Ask your doctor or pharmacist if you don't understand these instructions. Measure liquid medicine with the supplied measuring device (not a kitchen spoon). You may be given other medications to help prevent or treat certain side effects. You may have withdrawal symptoms if you stop using oxycodone suddenly. Ask your doctor before stopping the medicine. Store at room temperature away from moisture and heat. Keep your medicine in a place where no one can use it improperly. Do not keep leftover medicine. Just one dose can cause in someone using it accidentally or improperly. Ask your pharmacist about a drug take-back program, or flush the unused medicine down the toilet. What happens if I miss a dose? Since oxycodone is used for pain, you are not likely to miss a dose. Skip any missed dose if it is almost time for your next dose. Do not use two doses at one time. What happens if I overdose? Seek emergency medical attention or call the Poison Help line at . An overdose can be fatal, especially in a child or person using opioid medicine without a prescription. Your doctor may recommend you get naloxone (a medicine to reverse an opioid overdose) and keep it with you at all times. A person caring for you can give the naloxone if you stop breathing or don't wake up. Your caregiver must still get emergency medical help and may need to perform CPR (cardiopulmonary resuscitation) on you while waiting for help to arrive. Anyone can buy naloxone from a pharmacy or local health department. Make sure any person caring for you knows where you keep naloxone and how to use it. What should I avoid while taking oxycodone? Do not drink alcohol or any products that contain alcohol. Dangerous side effects or could occur. Avoid driving or hazardous activity until you know how this medicine will affect you. Dizziness or drowsiness can causing falls, accidents, or severe injuries. Also avoid getting up too fast from a sitting or lying position, or you may feel dizzy. What are the possible side effects of oxycodone? Get emergency medical help if you have signs of an allergic reaction: hives, difficult breathing, swelling of your face, lips, tongue, or throat. Opioid medicine can slow or stop your breathing, and may occur, especially if you drink alcohol or use other drugs that cause drowsiness or slow breathing. A person caring for you should give naloxone and/or seek emergency medical attention if you have slow breathing with long pauses, blue colored lips, or if you are hard to wake up. Call your doctor at once if you have: slow heart rate, weak pulse, fainting, slow breathing (breathing may stop); chest pain, fast or pounding heartbeats; a seizure, extreme drowsiness; or decreased adrenal gland hormones--nausea, vomiting, stomach pain, loss of appetite, feeling tired or light-headed, muscle or joint pain, skin discoloration, craving salty foods. Serious breathing problems may be more likely in older adults and in those who are debilitated or have wasting syndrome or chronic breathing disorders. Seek medical attention right away if you have symptoms of serotonin syndrome, such as: agitation, hallucinations, fever, sweating, shivering, fast heart rate, muscle stiffness, twitching, loss of coordination, nausea, vomiting, or diarrhea. Common side effects may include: sleep problems (insomnia), itching; drowsiness, headache, dizziness, tiredness; or constipation, stomach pain, nausea, vomiting. This is not a complete list of side effects and others may occur. Call your doctor for medical advice about side effects. You may report side effects to FDA at 3-442-BUE-0390. What other drugs will affect oxycodone? You may have a fatal oxycodone overdose if you start or stop using certain medicines. Tell your doctor about all your medications. Tell your doctor about all your medications especially if you use medicine to treat HIV, antibiotic, antifungal medication, or seizure medication. Many other drugs can be dangerous when used with opioid medicine. Tell your doctor if you also use: medicine for allergies, asthma, blood pressure, motion sickness, irritable bowel, or overactive bladder; other opioid medicines, a benzodiazepine sedative like Valium, Klonopin, or Xanax; sleep medicine, muscle relaxers, or other drugs that make you drowsy; or drugs that affect serotonin, such as antidepressants, stimulants, or medicine for migraines or Parkinson's disease. This list is not complete and many other drugs may affect oxycodone. This includes prescription and kqfi-umv-lbdryrx medicines, vitamins, and herbal products. Not all possible drug interactions are listed here. Where can I get more information? Your doctor or pharmacist can provide more information about oxycodone. Remember, keep this and all other medicines out of the reach of children, never share your medicines with others, and use this medication only for the indication prescribed. Every effort has been made to ensure that the information provided by [employer]. ('[employer]') is accurate, up-to-date, and complete, but no guarantee is made to that effect. Drug information contained herein may be time sensitive. [employer] information has been compiled for use by healthcare practitioners and consumers in the [place] and therefore [employer] does not warrant that uses outside of the [place] are appropriate, unless specifically indicated otherwise. [employer] drug information does not endorse drugs, diagnose patients or recommend therapy. [employer] drug information is an informational resource designed to assist licensed healthcare practitioners in caring for their patients and/or to serve consumers viewing this service as a supplement to, and not a substitute for, the expertise, skill, knowledge and judgment of healthcare practitioners. The absence of a warning for a given drug or drug combination in no way should be construed to indicate that the drug or drug combination is safe, effective or appropriate for any given patient. [facility] does not assume any responsibility for any aspect of healthcare administered with the aid of information [facility] provides. The information contained herein is not intended to cover all possible uses, directions, precautions, warnings, drug interactions, allergic reactions, or adverse effects. If you have questions about the drugs you are taking, check with your doctor, nurse or pharmacist. Copyright 9108-7006 [facility]. Version: 17.. Revision Date: 10/28/2023. doxycycline (oral/injection) (DOX geetha garcia) Acticlate, Adoxa, Alodox, Avidoxy, Doryx, Lymepak, Mondoxyne NL, Monodox, Morgidox, Okebo, Oracea, Targadox What is the most important information I should know about doxycycline? You should not take this medicine if you are allergic to any tetracycline antibiotic. Children younger than 8 years old should use doxycycline only in cases of severe or life-threatening conditions. This medicine can affect tooth development and growth and cause permanent yellowing or graying of the teeth in children. Using doxycycline during could harm the unborn baby or cause permanent tooth discoloration later in the baby's life. What is doxycycline? Doxycycline is used to treat many different bacterial infections, such as acne, urinary tract infections, intestinal infections, respiratory infections, eye infections, certain sexually transmitted infections, periodontitis (gum disease), and others. Doxycycline is also used to treat blemishes, bumps, and acne-like lesions caused by rosacea. Doxycycline will not treat facial redness caused by rosacea. Some forms of doxycycline are used to prevent malaria, to treat anthrax, or to treat infections caused by mites, ticks, or lice. Doxycycline may also be used for purposes not listed in this medication guide. What should I discuss with my healthcare provider before using doxycycline? You should not use this medicine if you are allergic to doxycycline or other tetracycline antibiotics such as demeclocycline, minocycline, tetracycline, or tigecycline. Tell your doctor if you have or have ever had: increased pressure inside your skull; diarrhea or diarrhea that is watery; stomach surgery; vision problems; vagina infection; take iron supplements, multivitamins, calcium supplements, laxatives, medicine containing bismuth subsalicylate, or antacids containing aluminum, calcium, or magnesium; use a proton pump inhibitor (such as omeprazole, esomeprazole, Nexium, Prevacid, Prilosec, or Protonix); if you also take isotretinoin or acitretin, seizure medicine, or a blood thinner such as warfarin (Coumadin); or liver or kidney disease. If you are using doxycycline to treat gonorrhea, your doctor may test you to make sure you do not also have syphilis, another sexually transmitted disease. Taking this medicine during may affect tooth and bone development in the unborn baby. Taking doxycycline during the last half of can cause permanent tooth discoloration later in the baby's life. Tell your doctor if you are or plan to become . Doxycycline can make control pills less effective. Ask your doctor about other control options such as an injection, implant, skin patch, vaginal ring, condom, diaphragm, cervical cap, or contraceptive sponge. Doxycycline can pass into breast milk and may affect bone and tooth development in a nursing . Do not breastfeed while you are taking doxycycline, and for at least 5 days after your last dose. Doxycycline can affect tooth development and growth and cause permanent yellowing or graying of the teeth in children younger than 8 years old. Children should use doxycycline only in cases of severe or life-threatening conditions such as anthrax or [place] spotted fever. The benefit of treating a serious condition may outweigh any risks to the child's tooth development. How should I use doxycycline? Follow all directions on your prescription label and read all medication guides or instruction sheets. Use the medicine exactly as directed. Your doctor will perform tests to make sure doxycycline is the right treatment for you. Take doxycycline with a full glass of water. Drink plenty of liquids while you are taking doxycycline. Most brand forms of doxycyline may be taken with food or milk if the medicine upsets your stomach. Different brand forms of doxycycline may have different instructions about taking them with or without food. Take Oracea on an empty stomach, at least 1 hour before or 2 hours after a meal. Swallow a delayed-release capsule or tablet whole. Do not crush, chew, break, or open it. Measure liquid medicine with the supplied measuring device (not a kitchen spoon). If you take doxycycline to prevent malaria: Start taking the medicine 1 or 2 days before entering an area where malaria is common. Continue taking the medicine every day during your stay and for at least 4 weeks after you leave the area. Doxycycline may be given as an infusion into a vein. A healthcare provider will give you this injection. Keep using this medicine even if your symptoms quickly improve. Skipping doses could make your infection resistant to medication. Doxycycline will not treat a viral infection (flu or a common cold). Store at room temperature away from moisture, heat, and light. What happens if I miss a dose? Call your doctor for instructions if you miss a dose or if you miss an appointment for your doxycycline injection. What happens if I overdose? Seek emergency medical attention or call the Poison Help line at . What should I avoid while using doxycycline? Do not take iron supplements, multivitamins, calcium supplements, laxatives, bismuth subsalicylate, or antacids containing aluminum, calcium, or magnesium within 2 hours before or after using doxycycline. Avoid taking any other antibiotics with doxycycline unless your doctor has told you to. Doxycycline could make you sunburn more easily. Avoid sunlight or tanning beds. Wear protective clothing and use sunscreen (SPF 30 or higher) when you are outdoors. Antibiotic medicines can cause diarrhea, which may be a sign of a new infection. If you have diarrhea that is watery or bloody, call your doctor. Do not use anti-diarrhea medicine unless your doctor tells you to. What are the possible side effects of doxycycline? Get emergency medical help if you have signs of an allergic reaction (hives, difficult breathing, swelling in your face or throat) or a severe skin reaction (fever, sore throat, burning eyes, skin pain, red or purple skin rash with blistering and peeling). Seek medical treatment if you have a serious drug reaction that can affect many parts of your body. Symptoms may include: skin rash, fever, swollen glands, flu-like symptoms, muscle aches, severe weakness, unusual bruising, or yellowing of your skin or eyes. This reaction may occur several weeks after you began using doxycycline. Call your doctor at once if you have: fever, chills, rapid breathing, headaches, rapid heart rate, skin lesion, low blood pressure; severe stomach pain, diarrhea that is watery or bloody; throat irritation, trouble swallowing; chest pain, irregular heart rhythm, feeling short of breath; little or no urination; low white blood cell counts--fever, chills, swollen glands, body aches, weakness, pale skin, easy bruising or bleeding; increased pressure inside the skull--severe headaches, ringing in your ears, dizziness, nausea, vision problems, pain behind your eyes; or signs of liver or pancreas problems--loss of appetite, upper stomach pain (that may spread to your back), tiredness, nausea or vomiting, fast heart rate, dark urine, jaundice (yellowing of the skin or eyes). Common side effects may include: headache, sinus infection, pain in the nose and throat; reversible discoloration of the surface of adult teeth; flu-like symptoms; high blood pressure; nausea, vomiting, upset stomach, loss of appetite; stomach pain or bloating; change in certain blood tests; diarrhea; skin rash or itching; darkened skin color; or vaginal itching or discharge. This is not a complete list of side effects and others may occur. Call your doctor for medical advice about side effects. You may report side effects to FDA at 9-313-XHC-9236. What other drugs will affect doxycycline? Sometimes it is not safe to use certain medicines at the same time. Some drugs can affect your blood levels of other drugs you use, which may increase side effects or make the medicines less effective. Other drugs may affect doxycycline, including prescription and qhjo-mps-jahfuwj medicines, vitamins, and herbal products. Tell your doctor about all other medicines you use. Where can I get more information? Your doctor or pharmacist can provide more information about doxycycline. Remember, keep this and all other medicines out of the reach of children, never share your medicines with others, and use this medication only for the indication prescribed. Every effort has been made to ensure that the information provided by [employer]. ('[employer]') is accurate, up-to-date, and complete, but no guarantee is made to that effect. Drug information contained herein may be time sensitive. [employer] information has been compiled for use by healthcare practitioners and consumers in the [place] and therefore [employer] does not warrant that uses outside of the [place] are appropriate, unless specifically indicated otherwise. [employer]'s drug information does not endorse drugs, diagnose patients or recommend therapy. [employer] drug information is an informational resource designed to assist licensed healthcare practitioners in caring for their patients and/or to serve consumers viewing this service as a supplement to, and not a substitute for, the expertise, skill, knowledge and judgment of healthcare practitioners. The absence of a warning for a given drug or drug combination in no way should be construed to indicate that the drug or drug combination is safe, effective or appropriate for any given patient. [facility] does not assume any responsibility for any aspect of healthcare administered with the aid of information [facility] provides. The information contained herein is not intended to cover all possible uses, directions, precautions, warnings, drug interactions, allergic reactions, or adverse effects. If you have questions about the drugs you are taking, check with your doctor, nurse or pharmacist. Copyright 1242-9574 [facility]. Version: 25.03. Revision Date: 01/18/2025. Education Materials Nipple-Sparing Mastectomy, Care After This sheet gives you information about how to care for yourself after your procedure. Your health care provider may also give you more specific instructions. If you have problems or questions, contact your health care provider. What can I expect after the procedure? After the procedure, it is common to have: Breast pain, soreness, or tenderness. Tingling or numbness in the breast and nipple. Swelling or a change in the shape of your breast. Tiredness. Follow these instructions at home: Medicines Take xzev-hdm-znwzwca and prescription medicines only as told by your health care provider. Take your antibiotic medicine as told by your health care provider. Do not stop taking the antibiotic even if you start to feel better. Ask your health care provider if the medicine prescribed to you can cause constipation. You may need to take steps to prevent or treat constipation, such as: ? Drink enough fluid to keep your urine pale yellow. ? Take sfot-plo-mbmvqit or prescription medicines. ? Eat foods that are high in fiber, such as beans, whole grains, and fresh fruits and vegetables. ? Limit foods that are high in fat and processed sugars, such as fried or sweet foods. Bathing Take sponge baths until your health care provider says that you can start showering or bathing. Do not take baths, swim, or use a hot tub until your health care provider approves. Activity Return to your normal activities as told by your health care provider. Ask your health care provider what activities are safe for you. It may take several weeks to return to full activity. Do not lift anything that is heavier than 10 lb (4.5 kg), or the limit that you are told, until your health care provider says that it is safe. Ask friends and family to help with chores, including early childhood education specialist, meal preparation, laundry, and shopping. Do arm exercises each day as told by your health care provider. This will help you avoid stiffness. Driving Do not drive until your health care provider approves. Do not drive or use heavy machinery while taking prescription pain medicine. Incision care If you have a drain in place, follow your health care provider's instructions for drain care. This may include emptying the drain and keeping track of the amount of drainage. Follow instructions from your health care provider about how to take care of your incision: ? You may be told to keep your bandage (dressing) dry and not change it. Remove the dressing only as told by your health care provider. ? If you are told to change your dressing, do so as told by your health care provider. Wash your hands with soap and water before you change your dressing. If soap and water are not available, use hand layout technician. ? Leave stitches, skin glue, or adhesive strips in place. These skin closures may need to stay in place for 2 weeks or longer. If adhesive strip edges start to loosen and curl up, you may trim the loose edges. Do not remove adhesive strips completely unless your health care provider tells you to do that. Check your incision area every day for signs of infection. Check for: ? Redness, swelling, or pain. ? Fluid or blood. ? Warmth. ? Pus or a bad smell. General instructions Do not wear a bra after your procedure so your incision can heal. Your health care provider will tell you when you can wear a bra again. Do not use any products that contain nicotine or tobacco, such as cigarettes, e-cigarettes, and chewing tobacco. These can delay healing and increase your risk for nipple necrosis. If you need help quitting, ask your health care provider. Keep all follow-up visits as told by your health care provider. This is important. Contact a health care provider if you have: Chills or a fever. Signs of infection at your drain or incision area. Any change in the color or the shape of your nipple. Pain that is not relieved by your pain medicine. Get help right away if you have: A sudden onset of chest pain. Difficulty breathing. A fast heart rate. Summary After a nipple-sparing mastectomy, it is common to have some breast pain, tenderness, and numbness. Take bhaq-njp-yckkmns and prescription medicines only as told by your health care provider. Return to your normal activities as told by your health care provider. Ask your health care provider what activities are safe for you. It may take several weeks to return to full activity. Follow instructions from your health care provider about how to take care of your incision. Keep all follow-up visits as told by your health care provider. This is important. This information is not intended to replace advice given to you by your health care provider. Make sure you discuss any questions you have with your health care provider. Document Released: 03/23/2019 Document Revised: 01/14/2020 Document Reviewed: 03/23/2019 [employer] Patient Education 2020 [email or web address]. Additional Information VACCINATE! IT SAVES LIVES! Members of the community who have not yet received the COVID-19 vaccine and would like to receive it can visit one of [facility] vaccine clinics. There are many vaccine clinic locations within the [facility]. For locations and available times, please visit [email or web address].[email or web address] .[email or web address] It is important to note that some COVID mobile vaccine clinics are held outdoors and may be canceled in rainy or stormy conditions. To learn more about pediatric vaccinations (ages 5-11), we invite you to visit the [facility] webpage. [email or web address]/page [email or web address]-[email or web address]-[email or web address] -[email or web address]-Questions.html To learn more about the COVID-19 vaccine, we invite you to visit the CDC website for a list of frequently asked questions.https://www.cdc.gov/coron avirus/2019-ncov/vaccines/faq.html [facility] Patient Portal Access Instructions: Stay connected with your healthcare team and access your personal medical information anytime with the [facility] Patient Portal. Please follow the directions below to create your [facility] account: 1.Access the email account you provided upon registration to the hospital/physician office.2.Look for an invitation email from [facility].3.Open the email and access the invitation link: Accept Invitation to [facility].4.Fill in the required steinberg to create your account. To access your account, visit [email or web address]. Click the blue button labeled Access Patient Portal and then log in with the username and password that you created in the steps above. You will be able to view your test results, lab results, a summary of your visits, upcoming appointments and more. There is also a convenient messaging option where you can send secure messages to your provider. In addition, you will have the ability to download any documents or summaries to your computer and/or send the information securely to a physician. Remember that your healthcare information is confidential, so carefully consider who you will allow to register on the [facility] Patient Portal for access to your information. You can also access the [facility] Patient Portal on the [facility] nina. Simply click on Patient Portal and then log into your account. If you would like to receive a full copy of your medical records, please contact the [facility] Medical Records Department by calling [phone], Friday through Friday between 8 a.m. and 4:30 p.m. HOW TO SAFELY DISPOSE OF PRESCRIPTION MEDICATIONS Please use one of the following methods to safely dispose of your unused medications. 1.Use a drug disposal kit: the drug disposal pouch allows you to safely discard your old and unused drugs. Ask your nurse to give you one when you are discharged.2.Visit a local take-back location: Many local pharmacies and police departments have programs that collect old and unwanted prescription drugs. Call your local pharmacy or go to http://bit.Enviable Abode/9A5Bn5e to find one close to you.3.Make use of household items: Use cat litter or old coffee grounds to dispose medications if other options are not available. Mix your drugs with these household products, seal them in an airtight container and throw it into the garbage. Call [facility]: [phone] to be sure your drugs can be disposed of in this way. Some medicines may require a different approach.4.Never flush your medications down the toilet. IF YOU HAVE BEEN PRESCRIBED AN OPIOID FOR PAIN If you have been prescribed an opioid (such as hydrocodone, oxycodone or morphine), it is critical to understand the possible side effects and risks of opioid pain medications. Even when taken as directed, opioids can have several side effects including: Tolerance, meaning you might need to take more of a medication for the same pain relief. Nausea, vomiting and/or constipation. Sleepiness, dizziness, dry mouth, confusion, depression or itching. Physical dependence, meaning you have withdrawal symptoms when a medication is stopped, can develop within a few days. KNOW YOUR RESPONSIBILITIES It is important to know exactly how much and how often to take the opioid pain medications you are prescribed. Never take opioids in higher amounts or more often than prescribed. Do not combine opioids with alcohol or other drugs that cause drowsiness, such as benzodiazepines, also known as benzos, including diazepam and alprazolam, muscle relaxants or sleep aids. Never sell or share prescription opioids. This is illegal. Store opioids in a secure place and out of reach of others (including children, family, friends and visitors). The last page of this document has been signed and retained as a CHART COPY. Signatures Patient Education Materials Nipple-Sparing Mastectomy, Care After Medication Leaflets oxycodone, doxycycline (oral/injection) My discharge plan and instructions have been reviewed and explained to me and I,AMAYA GARCIA understand my current condition and have read and understand these discharge instructions. I have received a written copy of the plan/instructions. If I have questions, I am aware that I should contact my doctor. Patient/Technician Inventory Specialist Signature: ____ Date/Time: Relationship to Patient: __ Witness Name/Signature: Date/Time: [facility] 03-25-2025 [facility] Progress note Subjective Still sore, but improving and feels stronger today Objective Vitals and Measurements T: 36.4 C (Oral) TMIN: 36.4 C (Oral) TMAX: 36.5 C (Oral) HR: 71 RR: 16 BP: 127/85 SpO2: 91% Intake and Output 7AM Yesterday to 7AM Today Intake and Output (Last 24 hours) Intake Administration Information 800.00 Oral Intake 720.00 Output Surgical Drain, Tube Output: 317.50 Urine Voided 2600.00 Stool Count 0.00 Total Summary Total Intake 1520.00 Total Output 2917.50 Fluid Balance -1397.50 Physical Exam Bilateral mastectomy skin flaps (right mastectomy with automotive professional, and left latissimus flap) are healthy appearing without ecchymosis, drains are dark serosanguineous. Weight Dosing Weight: 87 kg (03/22/25) Dosing Weight: 87 kg (03/22/25) Medications Medications (19) Active Scheduled: (10) acetaminophen 500 mg Tablet 1,000 mg 2 tab(s), Oral, q6h ceFAZolin syringe 1 g 10 mL, IV Push (INT), q8h cholecalciferol 25 mcg tablet (Vit D3 1000 units) 25 mcg 1 tab(s), Oral, qAM escitalopram 10 mg tablet 10 mg 1 tab(s), Oral, qHS ezetimibe 10 mg tablet 10 mg 1 tab(s), Oral, qHS gabapentin 300 mg Capsule 300 mg 1 cap(s), Oral, qHS oxybutynin 5 mg ER tablet 5 mg 1 tab(s), Oral, qDay rosuvastatin 20 mg tablet 40 mg 2 tab(s), Oral, qHS traZODONE 150 mg Tablet 150 mg 1 tab(s), Oral, qHS valacyclovir 500 mg Tablet 500 mg 1 tab(s), Oral, qHS Continuous: (1) D5/LR 1,000 mL 1,000 mL, Intravenous, 50 mL/hr PRN: (8) acetaminophen-OXYcodone 325 mg-5 mg Tablet 1 tab(s), Oral, q4h dextrose 50% Solution Disp syringe 50 mL 25 gram(s) 50 mL, IV Push, AsDirected melatonin 3 mg tablet 3 mg 1 tab(s), Oral, qHS morphine 2 mg/mL 1 mL syringe 2 mg 1 mL, IV Push, q1h morphine 2 mg/mL 1 mL syringe 4 mg 2 mL, IV Push, q1h oxyCODONE 10 mg Tab (Immediate Release) 10 mg 1 tab(s), Oral, q4h oxycodone 5 mg tablet (immediate release) 5 mg 1 tab(s), Oral, q4h prochlorperazine 10 mg/2 mL vial 5 mg 1 mL, IV Push, q6h Lab Results No 36 Hour Lab Data EKG No qualifying data available. Assessment/Plan Breast cancer Postop day 3 bilateral mastectomy, bilateral sentinel lymph node biopsy right breast automotive professional placement, left breast latissimus dorsi flap has 03/22/2025 Continue drains per plastic surgery team Follow-up in the clinic with me as scheduled 03/30/25 Class 2 obesity with body mass index (BMI) of 36.0 to 36.9 in adult Leukocytosis DOROTEO on CPAP S/P mastectomy Digitally Signed by JOSH JEFFERS DO on 03/25/2025 04:09 PM [facility] 03-25-2025 Note Event Display: SP Cl in Info Procedure: BILATERAL MASTECTOMIES, BILATERAL SENTINEL LYMPH NODE MAPPING AND BIOPSY NUCLEAR MEDICINE BILATERAL, POSSIBLE AXILLARY LYMPH NODE DISSECTION; BILATERAL TISSUE EXPANDERS WITH ALLODERM TO RIGHT BREAST, LEFT LATISSIMUS FLAP RECONSTRUCTION Preoperative diagnosis: BILATERAL BREAST CANCER Postoperative diagnosis: BILATERAL BREAST CANCER CLAUDIO MONSALVE MD:VERIFY; Authored Date: [facility] 03-24-2025 [facility] Progress note Subjective No issues overnight. Amaya states she is doing well. Objective Vitals and Measurements T: 36.5 C (Oral) TMIN: 36.5 C (Oral) TMAX: 36.9 C (Oral) HR: 71 RR: 16 BP: 108/62 SpO2: 98% Intake and Output 7AM Yesterday to 7AM Today Intake and Output (Last 24 hours) Intake Administration Information 1756.00 Oral Intake 1300.00 Output Surgical Drain, Tube Output: 323.50 Urine Voided 2250.00 Stool Count 0.00 Total Summary Total Intake 3056.00 Total Output 2573.50 Fluid Balance 482.50 Physical Exam Bilateral mastecomy/left lat flaps appears healthy without obvious ecchymosis or hematoma. 2 drains on the right and 3 drains on the left with dark serosanguineous fluid, small amount Weight Dosing Weight: 87 kg (03/22/25) Dosing Weight: 87 kg (03/22/25) Medications Medications (19) Active Scheduled: (10) acetaminophen 500 mg Tablet 1,000 mg 2 tab(s), Oral, q6h ceFAZolin syringe 1 g 10 mL, IV Push (INT), q8h cholecalciferol 25 mcg tablet (Vit D3 1000 units) 25 mcg 1 tab(s), Oral, qAM escitalopram 10 mg tablet 10 mg 1 tab(s), Oral, qHS ezetimibe 10 mg tablet 10 mg 1 tab(s), Oral, qHS gabapentin 300 mg Capsule 300 mg 1 cap(s), Oral, qHS oxybutynin 5 mg ER tablet 5 mg 1 tab(s), Oral, qDay rosuvastatin 20 mg tablet 40 mg 2 tab(s), Oral, qHS traZODONE 150 mg Tablet 150 mg 1 tab(s), Oral, qHS valacyclovir 500 mg Tablet 500 mg 1 tab(s), Oral, qHS Continuous: (1) D5/LR 1,000 mL 1,000 mL, Intravenous, 50 mL/hr PRN: (8) acetaminophen-OXYcodone 325 mg-5 mg Tablet 1 tab(s), Oral, q4h dextrose 50% Solution Disp syringe 50 mL 25 gram(s) 50 mL, IV Push, AsDirected melatonin 3 mg tablet 3 mg 1 tab(s), Oral, qHS morphine 2 mg/mL 1 mL syringe 2 mg 1 mL, IV Push, q1h morphine 2 mg/mL 1 mL syringe 4 mg 2 mL, IV Push, q1h oxyCODONE 10 mg Tab (Immediate Release) 10 mg 1 tab(s), Oral, q4h oxycodone 5 mg tablet (immediate release) 5 mg 1 tab(s), Oral, q4h prochlorperazine 10 mg/2 mL vial 5 mg 1 mL, IV Push, q6h Lab Results No 36 Hour Lab Data EKG No qualifying data available. Assessment/Plan Breast cancer POD#2 Status post bilateral mastectomy, bilateral sentinel lymph node biopsy right breast automotive professional placement, left breast latissimus dorsi flap 03/22/2025 Continue drain care. F/u in clinic as scheduled on 03/30/25 1:40 pm Class 2 obesity with body mass index (BMI) of 36.0 to 36.9 in adult Leukocytosis DOROTEO on CPAP S/P mastectomy Digitally Signed by JOSH JEFFERS DO on 03/24/2025 08:28 PM [facility] 03-23-2025 [facility] Progress note Subjective Feeling well, she has had some pain mostly on the left back, took 2 Tylenol today and it seems to help No other issues overnight Objective Vitals and Measurements T: 36.3 C (Oral) TMIN: 35.44 C TMAX: 36.9 C (Oral) HR: 75 RR: 16 BP: 119/74 SpO2: 95% HT: 154.9 cm WT: 87 kg BMI: 36.26 Intake and Output 7AM Yesterday to 7AM Today Intake and Output (Last 24 hours) Intake Administration Information 4207.77 Oral Intake 510.00 Output Surgical Drain, Tube Output: 540.00 Urinary Catheter Output: 1350.00 Intra-Op Urine Catheter 2200.00 Intra-Op EBL 150.00 Stool Count 0.00 Total Summary Total Intake 4717.77 Total Output 4240.00 Fluid Balance 477.77 Physical Exam Right breast with automotive professional with healthy appearing skin, soft no hematoma Left latissimus flap healthy appearing without any ecchymosis. Left leg donor site no dislodging Incision clean dry and intact without any hematoma Drains are in place with sanguinous fluid as expected (minimal amount). Weight Dosing Weight: 87 kg (03/22/25) Dosing Weight: 87 kg (03/22/25) Medications Medications (19) Active Scheduled: (10) acetaminophen 500 mg Tablet 1,000 mg 2 tab(s), Oral, q6h ceFAZolin syringe 1 g 10 mL, IV Push (INT), q8h cholecalciferol 25 mcg tablet (Vit D3 1000 units) 25 mcg 1 tab(s), Oral, qAM escitalopram 10 mg tablet 10 mg 1 tab(s), Oral, qHS ezetimibe 10 mg tablet 10 mg 1 tab(s), Oral, qHS gabapentin 300 mg Capsule 300 mg 1 cap(s), Oral, qHS oxybutynin 5 mg ER tablet 5 mg 1 tab(s), Oral, qDay rosuvastatin 20 mg tablet 40 mg 2 tab(s), Oral, qHS traZODONE 150 mg Tablet 150 mg 1 tab(s), Oral, qHS valacyclovir 500 mg Tablet 500 mg 1 tab(s), Oral, qHS Continuous: (1) D5/LR 1,000 mL 1,000 mL, Intravenous, 50 mL/hr PRN: (8) acetaminophen-OXYcodone 325 mg-5 mg Tablet 1 tab(s), Oral, q4h dextrose 50% Solution Disp syringe 50 mL 25 gram(s) 50 mL, IV Push, AsDirected melatonin 3 mg tablet 3 mg 1 tab(s), Oral, qHS morphine 2 mg/mL 1 mL syringe 2 mg 1 mL, IV Push, q1h morphine 2 mg/mL 1 mL syringe 4 mg 2 mL, IV Push, q1h oxyCODONE 10 mg Tab (Immediate Release) 10 mg 1 tab(s), Oral, q4h oxycodone 5 mg tablet (immediate release) 5 mg 1 tab(s), Oral, q4h prochlorperazine 10 mg/2 mL vial 5 mg 1 mL, IV Push, q6h Lab Results 03/23 04:57 WBC: 16.7 H Hgb: 13.5 Hct: 40.2 Platelet: 170 Neutrophil %: 85.4 H Glucose Level: 121 H Sodium Level: 141 Potassium Level: 4.0 BUN: 12.0 Creatinine Lvl (s): 0.57 03/22 20:39 WBC: 16.1 H Hgb: 15.3 Hct: 46.3 H Platelet: 150 Neutrophil %: 89.9 H Glucose Level: 139 H Sodium Level: 140 Potassium Level: 4.2 BUN: 16.0 Creatinine Lvl (s): 0.62 EKG No qualifying data available. Assessment/Plan Breast cancer Status post bilateral mastectomy, bilateral sentinel lymph node biopsy right breast automotive professional placement, left breast latissimus dorsi flap has 03/22/2025 Continue postoperative care appreciates anesthesia team for pain management postop wound care per plastic surgery team will follow Class 2 obesity with body mass index (BMI) of 36.0 to 36.9 in adult Leukocytosis DOROTEO on CPAP S/P mastectomy Orders: AP Specimen, 03/22/25 16:38:00 EDT, Collected, 03/23/25 7:13:43 EDT, Ras Colon, AP Specimen, #1 SENTINEL LYMPH NODE LEFT - , [facility] CLAUDIO Burciaga MD AP Specimen, 03/22/25 16:38:00 EDT, Collected, 03/23/25 7:13:43 EDT, Ras Colon, AP Specimen, #2 SENTINEL LYMPH NODE LEFT BREAST - FS, [facility] CLAUDIO Burciaga MD AP Specimen, 03/22/25 16:38:00 EDT, Collected, 03/23/25 7:13:43 EDT, Ras Colon, AP Specimen, LEFT BREAST MASTECTOMY, [facility] CLAUDIO Burciaga MD AP Specimen, 03/22/25 16:38:00 EDT, Collected, 03/23/25 7:13:43 EDT, Ras Colon, AP Specimen, #2 SENTINEL LYMPH NODE RIGHT - FS, [facility] CLAUDIO Burciaga MD AP Specimen, 03/22/25 16:38:00 EDT, Collected, 03/23/25 7:13:43 EDT, Ras Colon, AP Specimen, RIGHT BREAST MASTECTOMY, [facility] CLAUDIO Burciaga MD AP Specimen, 03/22/25 16:38:00 EDT, Collected, 03/23/25 7:13:43 EDT, Ras Colon, AP Specimen, RIGHT BREAST TISSUE - ANTERIOR 12:00, [facility] CLAUDIO Burciaga MD AP Specimen, 03/22/25 16:38:00 EDT, Collected, 03/23/25 7:13:43 EDT, Ras Colon, AP Specimen, LEFT BREAST TISSUE - 3:00 POSTERIOR MARGIN, [facility] CLAUDIO Burciaga MD AP Specimen, 03/22/25 16:38:00 EDT, Collected, 03/23/25 7:13:43 EDT, Ras Colon, AP Specimen, RIGHT MASTECTOMY SKIN MARGIN, [facility] CLAUDIO Burciaga MD Bed Request - Admit, 03/22/25 17:36:00 EDT, Care Level Regular Floor, Care Service Surgical, Telemetry No, Cognitive Impairment None, Dialysis No, Neg Pressure No, Precautions None, Isolation Type None Final Surgical Pathology Report, [facility] CLAUDIO Burciaga MD, 03/22/25 16:38:00 EDT Pathology Tissue Request(Tissue Request Pathology), 03/22/25 16:38:00 EDT, Collected, 03/23/25 7:13:43 EDT, Ras Colon AP Specimen, #1 SENTINEL LYMPH NODE RIGHT - FS, Center, [facility] CLAUDIO OROZCO MD Digitally Signed by JOSH JEFFERS DO on 03/23/2025 12:09 PM [facility] 03-23-2025 Note Date of Service 03/23/25 Chief Complaint Medical management Subjective Patient is a 69-year-old female with a past medical history significant for Anxiety, arthritis, cholelithiasis, depression, diverticulosis, hypercholesterolemia, IBS, liver cyst, overactive bladder, sleep apnea, 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 Patient was admitted to [facility] on March 22, 2025 for an elective bilateral mastectomy, bilateral sentinel lymph node biopsy with bilateral tissue automotive professional placement and left latissimus flap reconstruction. Hospitalist have been consulted for medical management. Patient resting up to chair. No family at bedside. Patient is alert. She is oriented. She answers questions appropriate. Patient denies shortness of breath, chest pain, palpitations, dizziness, blurred vision, difficulty speaking, nausea, vomiting, diarrhea, constipation, urinary symptoms, night sweats, cough, fever and chills. Patient complains of pain at posterior back surgical site. Pain is controlled with as needed pain medication Objective Vitals and Measurements T: 36.9 C (Oral) TMIN: 35.44 C TMAX: 36.9 C (Oral) HR: 82 RR: 14 BP: 102/58 SpO2: 98% HT: 154.9 cm WT: 87 kg BMI: 36.26 Intake and Output 7AM Yesterday to 7AM Today Intake and Output (Last 24 hours) Intake Administration Information 4207.77 Oral Intake 360.00 Output Surgical Drain, Tube Output: 390.00 Urinary Catheter Output: 1350.00 Intra-Op Urine Catheter 2200.00 Intra-Op EBL 150.00 Stool Count 0.00 Total Summary Total Intake 4567.77 Total Output 4090.00 Fluid Balance 477.77 Physical Exam Vitals Signs(Last 24 hrs)__ Last Charted Minimum Maximum Temp 36.9(MAR 23 07:30) 36.9(MAR 23 07:30) 36.7(MAR 23 00:21) Heart Rate 77(MAR 22 21:01) 0(MAR 22 14:30) 122(MAR 22 14:45) SBP 102(MAR 23 07:30) 60(MAR 22 18:25) 159(MAR 22 14:24) DBP L 58(MAR 23 07:30) 38(MAR 22 18:32) 111(MAR 22 18:30) Physical Exam General: No acute distress. Alert and Appropriate Skin: No rash. Warm, Dry, Intact. Dressings to the posterior back Flap site. Intact. DELANO drain present. HEENT: Head is normocephalic and atraumatic. No lesions. Pupils equal in size. Extraocular movements within normal limits. Nose: No septal deviation. Mouth: Oropharynx mucosa is without lesion. Neck: Supple. No lymphadenopathy or thyromegaly noted. Lungs: Bilaterally diminished breath sounds with no crepitation or wheeze. Unlabored Cardiovascular: Heart is regular rhythm, S1S2, No extra-audible heart tones Abdomen: Abdomen is soft, nontender. Bowel sounds positive all four quadrants. Extremities: No clubbing, cyanosis or edema. No calf tenderness. Adequate peripheral circulation. Neurological: The patient is awake, oriented to time, people and place. Following simple commands, moving all extremities. Weight Dosing Weight: 87 kg (03/22/25) Dosing Weight: 87 kg (03/22/25) Medications Medications (19) Active Scheduled: (10) acetaminophen 500 mg Tablet 1,000 mg 2 tab(s), Oral, q6h ceFAZolin syringe 1 g 10 mL, IV Push (INT), q8h cholecalciferol 25 mcg tablet (Vit D3 1000 units) 25 mcg 1 tab(s), Oral, qAM escitalopram 10 mg tablet 10 mg 1 tab(s), Oral, qHS ezetimibe 10 mg tablet 10 mg 1 tab(s), Oral, qHS gabapentin 300 mg Capsule 300 mg 1 cap(s), Oral, qHS oxybutynin 5 mg ER tablet 5 mg 1 tab(s), Oral, qDay rosuvastatin 20 mg tablet 40 mg 2 tab(s), Oral, qHS traZODONE 150 mg Tablet 150 mg 1 tab(s), Oral, qHS valacyclovir 500 mg Tablet 500 mg 1 tab(s), Oral, qHS Continuous: (1) D5/LR 1,000 mL 1,000 mL, Intravenous, 50 mL/hr PRN: (8) acetaminophen-OXYcodone 325 mg-5 mg Tablet 1 tab(s), Oral, q4h dextrose 50% Solution Disp syringe 50 mL 25 gram(s) 50 mL, IV Push, AsDirected melatonin 3 mg tablet 3 mg 1 tab(s), Oral, qHS morphine 2 mg/mL 1 mL syringe 2 mg 1 mL, IV Push, q1h morphine 2 mg/mL 1 mL syringe 4 mg 2 mL, IV Push, q1h oxyCODONE 10 mg Tab (Immediate Release) 10 mg 1 tab(s), Oral, q4h oxycodone 5 mg tablet (immediate release) 5 mg 1 tab(s), Oral, q4h prochlorperazine 10 mg/2 mL vial 5 mg 1 mL, IV Push, q6h Lab Results 03/23 04:57 WBC: 16.7 H Hgb: 13.5 Hct: 40.2 Platelet: 170 Neutrophil %: 85.4 H Glucose Level: 121 H Sodium Level: 141 Potassium Level: 4.0 BUN: 12.0 Creatinine Lvl (s): 0.57 03/22 20:39 WBC: 16.1 H Hgb: 15.3 Hct: 46.3 H Platelet: 150 Neutrophil %: 89.9 H Glucose Level: 139 H Sodium Level: 140 Potassium Level: 4.2 BUN: 16.0 Creatinine Lvl (s): 0.62 EKG No qualifying data available. Assessment/Plan 1. Breast cancer 2. Class 2 obesity with body mass index (BMI) of 36.0 to 36.9 in adult 3. S/P mastectomy 4. Leukocytosis 5. DOROTEO on CPAP Bilateral breast cancer status post mastectomy -Management per primary team. Acute pain -Related to above. Pain is controlled with current pain medication Leukocytosis -Related to above. Patient is afebrile. Obstructive sleep apnea -Continue CPAP as at home. -Patient is currently 100% on 3 L. Discussed with nursing. Patient will likely tolerate room air without difficulty. Nursing to trial DVT prophylaxis per primary team Plan of care discussed in depth with patient. Patient verbalizes understanding and is agreeable plan of care. Hospitalist will sign off at this time. Please call with questions or concerns. Discharge per primary team. Discussed with my collaborating physician Dr. Nilo Wilson This dictation was performed using voice recognition software and may include grammatical and/or spelling errors Digitally Signed by LAURA DIAL on 03/23/2025 11:16 AM [facility] 03-23-2025 Anesthesiology Consult note Patient: AMAYA GARCIA Age: 69 years Sex: Female : 1955 Associated Diagnoses: None Author: ZEYNEP DUMONT DO History of Present Illness Pt is POD1 from Bilateral Mastectomies w/ Bilateral T4 LETY block States nerve block helped immensely, rating pain between 0-2 /10 depending on activity. Pt states only discomfort ocurred at injection site, which is to be anticipated as the nerve block does not cover that area. This has since resolved and overall is feeling good no issues post block procedure Review of Systems Ear/Nose/Mouth/Throat: Negative except as documented in history of present illness. Respiratory: Negative except as documented in history of present illness. Cardiovascular: Negative except as documented in history of present illness. Gastrointestinal: Negative except as documented in history of present illness. Genitourinary: Negative except as documented in history of present illness. Endocrine: Negative except as documented in history of present illness. Musculoskeletal: Negative except as documented in history of present illness. Integumentary: Negative except as documented in history of present illness. Neurologic: Negative except as documented in history of present illness. Health Status Allergies: Allergies (1) ActiveSeverityReaction isosulfan blueSevereHives Current medications: (Selected) Inpatient Medications Ordered D5LR 1000 mL 1,000 mL: 50 mL/hr, Intravenous Dextrose 50% IV Push: 25 gram(s), 50 mL, IV Push, AsDirected, PRN: Low blood sugar Ditropan XL: 5 mg, 1 tab(s), Oral, qDay Kefzol: 1 g, 10 mL, 120 mL/hr, IV Push (INT), q8h Percocet 325/5: 1 tab(s), Oral, q4h, PRN: Pain, scale 1-3 Vitamin D3 25 mcg (1000 intl units) oral tablet: 25 mcg, 1 tab(s), Oral, qAM acetaminophen: 1,000 mg, 2 tab(s), Oral, q6h escitalopram: 10 mg, 1 tab(s), Oral, qHS ezetimibe: 10 mg, 1 tab(s), Oral, qHS gabapentin: 300 mg, 1 cap(s), Oral, qHS melatonin: 3 mg, 1 tab(s), Oral, qHS, PRN: Sleep morphine: 2 mg, 1 mL, IV Push, q1h, PRN: Pain, scale 4-6 morphine: 4 mg, 2 mL, IV Push, q1h, PRN: Pain, scale 7-10 oxyCODONE 10 mg oral tablet IR: 10 mg, 1 tab(s), Oral, q4h, PRN: Pain, scale 7-10 oxyCODONE 5 mg oral tablet ( IMMEDIATE release ): 5 mg, 1 tab(s), Oral, q4h, PRN: Pain, scale 4-6 prochlorperazine: 5 mg, 1 mL, IV Push, q6h, PRN: Nausea/Vomiting rosuvastatin: 40 mg, 2 tab(s), Oral, qHS traZODone: 150 mg, 1 tab(s), Oral, qHS valACYclovir: 500 mg, 1 tab(s), Oral, qHS Documented Medications Documented Fesoterodine 4 mg oral tablet, extended release: 4 mg, 1 tab(s), Oral, qAM, 0 Refill(s) Vitamin D3 25 mcg (1000 intl units) oral capsule: 25 mcg, 1 cap(s), Oral, qAM, 0 Refill(s) escitalopram 10 mg oral tablet: 10 mg, 1 tab(s), Oral, qHS, 30 tab(s), 0 Refill(s) ezetimibe 10 mg oral tablet: 10 mg, 1 tab(s), Oral, qHS, 30 tab(s), 0 Refill(s) rosuvastatin 40 mg oral tablet: 40 mg, 1 tab(s), Oral, qHS, 30 tab(s), 0 Refill(s) traZODone 150 mg oral tablet: 150 mg, 1 tab(s), Oral, qHS, 90 tab(s), 0 Refill(s) valACYclovir 500 mg oral tablet: 500 mg, 1 tab(s), Oral, qHS, 0 Refill(s), Medications (19) Active Scheduled: (10) acetaminophen 500 mg Tablet 1,000 mg 2 tab(s), Oral, q6h ceFAZolin syringe 1 g 10 mL, IV Push (INT), q8h cholecalciferol 25 mcg tablet (Vit D3 1000 units) 25 mcg 1 tab(s), Oral, qAM escitalopram 10 mg tablet 10 mg 1 tab(s), Oral, qHS ezetimibe 10 mg tablet 10 mg 1 tab(s), Oral, qHS gabapentin 300 mg Capsule 300 mg 1 cap(s), Oral, qHS oxybutynin 5 mg ER tablet 5 mg 1 tab(s), Oral, qDay rosuvastatin 20 mg tablet 40 mg 2 tab(s), Oral, qHS traZODONE 150 mg Tablet 150 mg 1 tab(s), Oral, qHS valacyclovir 500 mg Tablet 500 mg 1 tab(s), Oral, qHS Continuous: (1) D5/LR 1,000 mL 1,000 mL, Intravenous, 50 mL/hr PRN: (8) acetaminophen-OXYcodone 325 mg-5 mg Tablet 1 tab(s), Oral, q4h dextrose 50% Solution Disp syringe 50 mL 25 gram(s) 50 mL, IV Push, AsDirected melatonin 3 mg tablet 3 mg 1 tab(s), Oral, qHS morphine 2 mg/mL 1 mL syringe 2 mg 1 mL, IV Push, q1h morphine 2 mg/mL 1 mL syringe 4 mg 2 mL, IV Push, q1h oxyCODONE 10 mg Tab (Immediate Release) 10 mg 1 tab(s), Oral, q4h oxycodone 5 mg tablet (immediate release) 5 mg 1 tab(s), Oral, q4h prochlorperazine 10 mg/2 mL vial 5 mg 1 mL, IV Push, q6h Problem list: Medical Abnormal tissue in uterus / SNOMED CT 938547935 / Confirmed Family history of breast cancer / SNOMED CT 7405518818 / Confirmed Liver cyst / SNOMED CT 489763566 / Confirmed Bilateral breast cancer / SNOMED CT 728068380 / Confirmed Spigelian hernia / SNOMED CT 611783928 / Confirmed Histories Social History: Social & Psychosocial Habits Alcohol 03/22/2025 Use: Current Frequency: 1-2 times per week Substance Abuse 03/22/2025 Use: Never Tobacco 03/22/2025 Tobacco Use: Former smoker, quit more Started at age: 20 Years Stopped at age: 57 Years Home/Environment 03/22/2025 Living situation: Home/Independent Safe place to go: Yes Domestic Concerns None Lives In Single level home Current Home Treatments CPAP Special Services and Community Resources None Spouse Name LUKE Marital Status of Patient if Patient Independent Adult: Nutrition/Health 03/22/2025 Type of diet: Regular Appetite Excellent Eating Difficulties None Caffeine intake amount: hardly any Sexual 03/22/2025 Sexually active: Yes Physical Examination VS/Measurements: Vital Signs (last 24 hrs) Last Charted Temp Oral36.8 DegC (MAR 23 03:57) Heart Rate Boldwkrbb62 bpm (MAR 22 21:01) SBPH 159 mmHg (MAR 23 00:21) DBP82 mmHg (MAR 23 00:21) BMI36.26 (MAR 22 21:28) . General: Alert and oriented, No acute distress. Respiratory: Respirations are non-labored, Symmetrical chest wall expansion. Cardiovascular: Normal rate, Regular rhythm. Integumentary: Nerve block site clean and dry with no evidence of bleeding or infection. Neurologic: Alert, Oriented, No focal deficits. Review / Management Results review: Labs (Last four charted values) WBC H 16.7(MAR 18)H 16.1(MAR 17) Hgb 13.5(MAR 18)15.3(MAR 17) Hct 40.2(MAR 18)H 46.3(FARAZ 17) Plt 170(FARAZ 18)150(FARAZ 17) Na 141(FARAZ 18)140(FARAZ 17) K 4.0(FARAZ 18)4.2(FARAZ 17) CO2 28(MAR 18)22(FARAZ 17) Cl 106(FARAZ 18)106(FARAZ 17) Cr 0.57(FARAZ 18)0.62(FARAZ 17) BUN 12.0(FARAZ 18)16.0(MAR 17) Glucose H 121(MAR 18)H 139(MAR 17) Ca 8.8(MAR 18)9.1(MAR 17) , Labs and imaging personally reviewed. Documentation reviewed: Current records. Assessment and Plan Pt is POD1 from Bilateral Mastectomies w/ Bilateral T4 LETY block States nerve block helped immensely, rating pain between 0-2 /10 depending on activity. 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 Today she underwent a bilateral mastectomy, bilateral sentinel lymph node biopsy with bilateral tissue automotive professional placement and left latissimus flap reconstruction. On examination patient resting in bed, alert and oriented x 4, with no visible signs of distress. Patient has no complaints other than moderate pain on left mid axillary approximately 4th-5th rib. She has bilateral breast incisions as well as multiple drains at the surgical sites. Patient states that she does have sleep apnea and uses CPAP at night. She has brought her unit in to use. Patient states that all of her other medical conditions are stable. Review of systems and physical exam are unremarkable otherwise. Review of Systems GENERAL: No weight loss/gain, fever, chills, weakness, or fatigue. SKIN: No rashes or itching. HEAD: No headache, dizziness, or lightheadedness. ENT: No visual disturbance, loss, tinnitus, discharge, nasal congestion, or sore throat. NECK: No stiffness or pain. HEART: No chest pain or palpitations. LUNGS: No dyspnea, wheezing, or cough. GI: No nausea, vomiting, diarrhea, constipation, or abdominal pain. : No urinary frequency, urgency, dysuria, or hematuria. MUSCULOSKELETAL: No stiffness, backache, or joint pain. PSYCHIATRIC: No depression or anxiety. NEUROLOGICAL: No paresthesias or weakness. HEMATOLOGIC: No easy bruising or petechiae. ENDOCRINE: No polydipsia, polyuria, hot or cold intolerance. Physical Exam Vitals and Measurements T: 36.3 C (Temporal Artery) TMIN: 35.44 C TMAX: 36.39 C HR: 73 RR: 16 BP: 131/64 SpO2: 98% HT: 154.9 cm WT: 87 kg BMI: 36.26 Weight Dosing Weight: 87 kg (03/22/25) Dosing Weight: 87 kg (03/22/25) Physical Exam General: No acute distress. Alert and Appropriate Skin: No rash. Warm, Dry, Intact HEENT: Head is normocephalic and atraumatic. No lesions. Pupils equal in size. Extraocular movements within normal limits. Neck: Supple. No lymphadenopathy, thyromegaly noted. Lungs: Bilaterally clear breath sounds with no crepitation or wheeze. Unlabored Cardiovascular: Heart is regular rhythm, S1S2, No extra-audible heart tones Abdomen: Abdomen is soft, nontender. Bowel sounds positive all four quadrants. Extremities: No clubbing, cyanosis or edema. Peripheral pulses palpable. No calf tenderness. Adequate peripheral circulation. Neurological: The patient is awake, oriented to time, people and place. Following simple commands, moving all extremities. Lab Results 03/22 20:39 WBC: 16.1 H Hgb: 15.3 Hct: 46.3 H Platelet: 150 Neutrophil %: 89.9 H Glucose Level: 139 H Sodium Level: 140 Potassium Level: 4.2 BUN: 16.0 Creatinine Lvl (s): 0.62 Imaging Results and Diagnostics US Anesthesia Block Result Date: March 22, 2025 Verified By: CLINICAL STATEMENT: IMPRESSION: NM Injection [place] Node Result Date: March 22, 2025 Verified By: JOSE ROBERTO MACK MD CLINICAL STATEMENT: IMPRESSION: No images were acquired. Lymph nodes localized with probe in the OR. NM Injection [place] Node Result Date: March 22, 2025 Verified By: JOSE ROBERTO MACK MD CLINICAL STATEMENT: IMPRESSION: No images were acquired. Lymph nodes localized with probe in the OR. US Guidance Breast in OR Result Date: March 22, 2025 Verified By: CLINICAL STATEMENT: IMPRESSION: Assessment/Plan Leukocytosis Sleep apnea Breast cancer Status post bilateral mastectomies and lymph node resection with reconstructive breast surgery Other past medical history significant for HDL, diverticulitis, IBS, anxiety/depression, arthritis, cholelithiasis, and overactive bladder. Leukocytosis - White blood count 16.1, Tmax 36.3 C, blood pressure 135/68 - Lungs are clear, denies cough, denies urinary frequency, urgency, pain with urination, or foul-smelling urine. - No other signs and symptoms of infection at this time - cefazolin 1 g daily per primary team - likely due to surgery we will continue to monitor Sleep apnea -Lungs are clear, no cough, no shortness of breath -Patient denies any home O2 use -Patient is on 2 L nasal cannula with end-tidal CO2 monitoring that is within normal limits. Patient does use home CPAP and has brought her unit with her. -CPAP at bedtime with oxygen bleed and as needed to keep pulse ox greater than 92% - Incentive spirometer Status post bilateral mastectomies and lymph node resection due to breast cancer Reconstructive breast surgery -All incisional dressings intact with scant bleed through. Drains are intact, there are 2 drains in each breast surgical site and 1 on the left subscapular. All drains have scant serous drainage. - Patient states she is in moderate pain on the left side below the incision site. - Pain management per primary team - K-pad to affected area All other chronic conditions are stable at this time and home medications have been continued as appropriate. Labs and diagnostics are noted in the HPI. Thank you for requesting our participation in the care of your patient. We will continue to follow during hospitalization. Problem List/Past Medical History Ongoing Abnormal tissue in uterus Bilateral breast cancer Family history of breast cancer Liver cyst Spigelian hernia Procedure/Surgical History Lumpectomy of left breast: 2017 Biopsy of breast: 2017 Colonoscopy Arthroscopy of shoulder Carpal tunnel decompression Tonsillectomy Surgery Endometrial ablation section Medications Inpatient acetaminophen, 1000 mg= 2 tab(s), Oral, q6h atropine 0.4 mg/mL injectable solution ( PACU ), 0.4 mg= 1 mL, IV Push, AsDirected, PRN ceFAZolin 2 gram(s) + Garamycin 160 mg ceFAZolin 2 gram(s) + Garamycin 160 mg D5LR 1000 mL 1,000 mL, 1000 mL, Intravenous Dextrose 50% IV Push, 25 gram(s)= 50 mL, IV Push, AsDirected, PRN Ditropan XL, 5 mg= 1 tab(s), Oral, qDay escitalopram, 10 mg= 1 tab(s), Oral, qHS ezetimibe, 10 mg= 1 tab(s), Oral, qHS fentaNYL ( PACU ), 25 mcg= 0.5 mL, IV Push, q5min, PRN gabapentin, 300 mg= 1 cap(s), Oral, qHS Kefzol, 1 gram(s)= 10 mL, IV Push (INT), q8h lidocaine 1% preservative-free injectable solution, 2.5 mg= 0.25 mL, Intradermal, prep pharm melatonin, 3 mg= 1 tab(s), Oral, qHS, PRN morphine, 2 mg= 1 mL, IV Push, q1h, PRN morphine, 4 mg= 2 mL, IV Push, q1h, PRN oxyCODONE 10 mg oral tablet IR, 10 mg= 1 tab(s), Oral, q4h, PRN oxyCODONE 5 mg oral tablet ( IMMEDIATE release ), 5 mg= 1 tab(s), Oral, q4h, PRN Percocet 325/5, 1 tab(s), Oral, q4h, PRN prochlorperazine, 5 mg= 1 mL, IV Push, q6h, PRN rosuvastatin, 40 mg= 2 tab(s), Oral, qHS traZODone, 150 mg= 1 tab(s), Oral, qHS valACYclovir, 500 mg= 1 tab(s), Oral, qHS Vitamin D3 25 mcg (1000 intl units) oral tablet, 25 mcg= 1 tab(s), Oral, qAM Zofran ( PACU ), 4 mg= 2 mL, IV Push, AsDirected, PRN Home escitalopram 10 mg oral tablet, 10 mg= 1 tab(s), Oral, qHS ezetimibe 10 mg oral tablet, 10 mg= 1 tab(s), Oral, qHS Fesoterodine 4 mg oral tablet, extended release, 4 mg= 1 tab(s), Oral, qAM rosuvastatin 40 mg oral tablet, 40 mg= 1 tab(s), Oral, qHS traZODone 150 mg oral tablet, 150 mg= 1 tab(s), Oral, qHS valACYclovir 500 mg oral tablet, 500 mg= 1 tab(s), Oral, qHS Vitamin D3 25 mcg (1000 intl units) oral capsule, 25 mcg= 1 cap(s), Oral, qAM, On hold for Surgery Allergies isotruan blue(Severe) Hives Social History Alcohol Use: Current. Frequency: 1-2 times per week., 03/11/2025 Home/Environment Living situation: Home/Independent. Safe place to go: Yes. Domestic Concerns: None. Lives In: Single level home. Current Home Treatments CPAP. Professional Skilled Services or Special Community Resources None. Spouse Name: LUKE. Marital Status: ., 03/11/2025 Nutrition/Health Type of diet: Regular. Appetite Excellent. Eating Difficulties None. Caffeine intake amount: hardly any., 02/09/2025 Sexual Sexually active: Yes., 02/09/2025 Substance Abuse Use: Never., 03/27/2021 Tobacco Nicotine Use: Former smoker, quit more than 30 days ago. Started at age: 20 Years. Stopped at age: 57 Years., 03/11/2025 Family History Alzheimer disease: Mother. Asthma: Mother. Breast cancer: Maternal Aunt and Maternal Grandmother. Diabetes: Father and Maternal Aunt. Heart attack: Mother. Heart disease: Father. Hypercholesterolemia: Father. Hypertension: Father. Kidney disease: Brother. Rheumatoid arthritis: Mother. Stroke: Mother and Father. Health Status Family Member(s) Daughter: History is negative Son: History is negative Family Member(s) Relationship: Mother, Age: 78 Years Relationship: Father, Age: 81 Years Immunizations No qualifying data available. 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 Today she underwent a bilateral mastectomy, bilateral sentinel lymph node biopsy with bilateral tissue automotive professional placement and left latissimus flap reconstruction. On examination patient resting in bed, alert and oriented x 4, with no visible signs of distress. Patient has no complaints other than moderate pain on left mid axillary approximately 4th-5th rib. She has bilateral breast incisions as well as multiple drains at the surgical sites. Patient states that she does have sleep apnea and uses CPAP at night. She has brought her unit in to use. Patient states that all of her other medical conditions are stable. Review of systems and physical exam are unremarkable otherwise. Review of Systems GENERAL: No weight loss/gain, fever, chills, weakness, or fatigue. SKIN: No rashes or itching. HEAD: No headache, dizziness, or lightheadedness. ENT: No visual disturbance, loss, tinnitus, discharge, nasal congestion, or sore throat. NECK: No stiffness or pain. HEART: No chest pain or palpitations. LUNGS: No dyspnea, wheezing, or cough. GI: No nausea, vomiting, diarrhea, constipation, or abdominal pain. : No urinary frequency, urgency, dysuria, or hematuria. MUSCULOSKELETAL: No stiffness, backache, or joint pain. PSYCHIATRIC: No depression or anxiety. NEUROLOGICAL: No paresthesias or weakness. HEMATOLOGIC: No easy bruising or petechiae. ENDOCRINE: No polydipsia, polyuria, hot or cold intolerance. Physical Exam Vitals and Measurements T: 36.3 C (Temporal Artery) TMIN: 35.44 C TMAX: 36.39 C HR: 73 RR: 16 BP: 131/64 SpO2: 98% HT: 154.9 cm WT: 87 kg BMI: 36.26 Weight Dosing Weight: 87 kg (03/22/25) Dosing Weight: 87 kg (03/22/25) Physical Exam General: No acute distress. Alert and Appropriate Skin: No rash. Warm, Dry, Intact HEENT: Head is normocephalic and atraumatic. No lesions. Pupils equal in size. Extraocular movements within normal limits. Neck: Supple. No lymphadenopathy, thyromegaly noted. Lungs: Bilaterally clear breath sounds with no crepitation or wheeze. Unlabored Cardiovascular: Heart is regular rhythm, S1S2, No extra-audible heart tones Abdomen: Abdomen is soft, nontender. Bowel sounds positive all four quadrants. Extremities: No clubbing, cyanosis or edema. Peripheral pulses palpable. No calf tenderness. Adequate peripheral circulation. Neurological: The patient is awake, oriented to time, people and place. Following simple commands, moving all extremities. Lab Results 03/22 20:39 WBC: 16.1 H Hgb: 15.3 Hct: 46.3 H Platelet: 150 Neutrophil %: 89.9 H Glucose Level: 139 H Sodium Level: 140 Potassium Level: 4.2 BUN: 16.0 Creatinine Lvl (s): 0.62 Imaging Results and Diagnostics US Anesthesia Block Result Date: March 22, 2025 Verified By: CLINICAL STATEMENT: IMPRESSION: NM Injection [place] Node Result Date: March 22, 2025 Verified By: JOSE ROBERTO MACK MD CLINICAL STATEMENT: IMPRESSION: No images were acquired. Lymph nodes localized with probe in the OR. NM Injection [place] Node Result Date: March 22, 2025 Verified By: JOSE ROBERTO MACK MD CLINICAL STATEMENT: IMPRESSION: No images were acquired. Lymph nodes localized with probe in the OR. US Guidance Breast in OR Result Date: March 22, 2025 Verified By: CLINICAL STATEMENT: IMPRESSION: Assessment/Plan Leukocytosis Sleep apnea Breast cancer Status post bilateral mastectomies and lymph node resection with reconstructive breast surgery Other past medical history significant for HDL, diverticulitis, IBS, anxiety/depression, arthritis, cholelithiasis, and overactive bladder. Leukocytosis - White blood count 16.1, Tmax 36.3 C, blood pressure 135/68 - Lungs are clear, denies cough, denies urinary frequency, urgency, pain with urination, or foul-smelling urine. - No other signs and symptoms of infection at this time - cefazolin 1 g daily per primary team - likely due to surgery we will continue to monitor Sleep apnea -Lungs are clear, no cough, no shortness of breath -Patient denies any home O2 use -Patient is on 2 L nasal cannula with end-tidal CO2 monitoring that is within normal limits. Patient does use home CPAP and has brought her unit with her. -CPAP at bedtime with oxygen bleed and as needed to keep pulse ox greater than 92% - Incentive spirometer Status post bilateral mastectomies and lymph node resection due to breast cancer Reconstructive breast surgery -All incisional dressings intact with scant bleed through. Drains are intact, there are 2 drains in each breast surgical site and 1 on the left subscapular. All drains have scant serous drainage. - Patient states she is in moderate pain on the left side below the incision site. - Pain management per primary team - K-pad to affected area All other chronic conditions are stable at this time and home medications have been continued as appropriate. Labs and diagnostics are noted in the HPI. Thank you for requesting our participation in the care of your patient. We will continue to follow during hospitalization. Problem List/Past Medical History Ongoing Abnormal tissue in uterus Bilateral breast cancer Family history of breast cancer Liver cyst Spigelian hernia Procedure/Surgical History Lumpectomy of left breast: 2017 Biopsy of breast: 2017 Colonoscopy Arthroscopy of shoulder Carpal tunnel decompression Tonsillectomy Surgery Endometrial ablation section Medications Inpatient acetaminophen, 1000 mg= 2 tab(s), Oral, q6h atropine 0.4 mg/mL injectable solution ( PACU ), 0.4 mg= 1 mL, IV Push, AsDirected, PRN ceFAZolin 2 gram(s) + Garamycin 160 mg ceFAZolin 2 gram(s) + Garamycin 160 mg D5LR 1000 mL 1,000 mL, 1000 mL, Intravenous Dextrose 50% IV Push, 25 gram(s)= 50 mL, IV Push, AsDirected, PRN Ditropan XL, 5 mg= 1 tab(s), Oral, qDay escitalopram, 10 mg= 1 tab(s), Oral, qHS ezetimibe, 10 mg= 1 tab(s), Oral, qHS fentaNYL ( PACU ), 25 mcg= 0.5 mL, IV Push, q5min, PRN gabapentin, 300 mg= 1 cap(s), Oral, qHS Kefzol, 1 gram(s)= 10 mL, IV Push (INT), q8h lidocaine 1% preservative-free injectable solution, 2.5 mg= 0.25 mL, Intradermal, prep pharm melatonin, 3 mg= 1 tab(s), Oral, qHS, PRN morphine, 2 mg= 1 mL, IV Push, q1h, PRN morphine, 4 mg= 2 mL, IV Push, q1h, PRN oxyCODONE 10 mg oral tablet IR, 10 mg= 1 tab(s), Oral, q4h, PRN oxyCODONE 5 mg oral tablet ( IMMEDIATE release ), 5 mg= 1 tab(s), Oral, q4h, PRN Percocet 325/5, 1 tab(s), Oral, q4h, PRN prochlorperazine, 5 mg= 1 mL, IV Push, q6h, PRN rosuvastatin, 40 mg= 2 tab(s), Oral, qHS traZODone, 150 mg= 1 tab(s), Oral, qHS valACYclovir, 500 mg= 1 tab(s), Oral, qHS Vitamin D3 25 mcg (1000 intl units) oral tablet, 25 mcg= 1 tab(s), Oral, qAM Zofran ( PACU ), 4 mg= 2 mL, IV Push, AsDirected, PRN Home escitalopram 10 mg oral tablet, 10 mg= 1 tab(s), Oral, qHS ezetimibe 10 mg oral tablet, 10 mg= 1 tab(s), Oral, qHS Fesoterodine 4 mg oral tablet, extended release, 4 mg= 1 tab(s), Oral, qAM rosuvastatin 40 mg oral tablet, 40 mg= 1 tab(s), Oral, qHS traZODone 150 mg oral tablet, 150 mg= 1 tab(s), Oral, qHS valACYclovir 500 mg oral tablet, 500 mg= 1 tab(s), Oral, qHS Vitamin D3 25 mcg (1000 intl units) oral capsule, 25 mcg= 1 cap(s), Oral, qAM, On hold for Surgery Allergies isosulfan blue(Severe) Hives Social History Alcohol Use: Current. Frequency: 1-2 times per week., 03/11/2025 Home/Environment Living situation: Home/Independent. Safe place to go: Yes. Domestic Concerns: None. Lives In: Single level home. Current Home Treatments CPAP. Professional Skilled Services or Special Community Resources None. Spouse Name: LUKE. Marital Status: ., 03/11/2025 Nutrition/Health Type of diet: Regular. Appetite Excellent. Eating Difficulties None. Caffeine intake amount: hardly any., 02/09/2025 Sexual Sexually active: Yes., 02/09/2025 Substance Abuse Use: Never., 03/27/2021 Tobacco Nicotine Use: Former smoker, quit more than 30 days ago. Started at age: 20 Years. Stopped at age: 57 Years., 03/11/2025 Family History Alzheimer disease: Mother. Asthma: Mother. Breast cancer: Maternal Aunt and Maternal Grandmother. Diabetes: Father and Maternal Aunt. Heart attack: Mother. Heart disease: Father. Hypercholesterolemia: Father. Hypertension: Father. Kidney disease: Brother. Rheumatoid arthritis: Mother. Stroke: Mother and Father. Health Status Family Member(s) Daughter: History is negative Son: History is negative Family Member(s) Relationship: Mother, Age: 78 Years Relationship: Father, Age: 81 Years Immunizations No qualifying data available. Digitally Signed by FANTASMA MEYER on 03/23/2025 02:02 AM [facility] 03-22-2025 Anesthesiology Consult note Patient: AMAYA GARCIA Age: 69 years Sex: Female : 1955 Associated Diagnoses: None Author: JONAS STEVENSON MD Postoperative Information Post Operative Info: Post op day: POD0. Patient location: PACU. Assessment Postanesthesia assessment Vitals: Vital signs from flowsheet : Vital Signs 03/22/2025 21:36 EDT Temperature Temporal Artery 36.3 DegC Peripheral Pulse Rate 73 bpm Respiratory Rate 16 br/min Systolic Blood Pressure Non-Invasive 131 mmHg Diastolic Blood Pressure Non-Invasive 64 mmHg Reason For Taking VItal Signs Admission 03/22/2025 21:01 EDT Systolic Blood Pressure Non-Invasive 141 mmHg HI Diastolic Blood Pressure Non-Invasive 67 mmHg Mean Arterial Pressure (NBP) 90 mmHg 03/22/2025 21:01 EDT Heart Rate Monitored 77 bpm 03/22/2025 21:01 EDT Respiratory Rate 14 br/min 03/22/2025 20:46 EDT Systolic Blood Pressure Non-Invasive 135 mmHg Diastolic Blood Pressure Non-Invasive 68 mmHg Mean Arterial Pressure (NBP) 88 mmHg 03/22/2025 20:46 EDT Heart Rate Monitored 77 bpm 03/22/2025 20:46 EDT Temperature Temporal Artery 36.0 DegC Respiratory Rate 14 br/min 03/22/2025 20:31 EDT Heart Rate Monitored 78 bpm Respiratory Rate 16 br/min 03/22/2025 20:16 EDT Heart Rate Monitored 80 bpm 03/22/2025 20:16 EDT Systolic Blood Pressure Non-Invasive 140 mmHg Diastolic Blood Pressure Non-Invasive 71 mmHg Mean Arterial Pressure (NBP) 92 mmHg 03/22/2025 20:16 EDT Respiratory Rate 12 br/min LOW 03/22/2025 20:01 EDT Heart Rate Monitored 79 bpm 03/22/2025 20:01 EDT Systolic Blood Pressure Non-Invasive 131 mmHg Diastolic Blood Pressure Non-Invasive 69 mmHg Mean Arterial Pressure (NBP) 88 mmHg 03/22/2025 20:01 EDT Respiratory Rate 14 br/min 03/22/2025 19:46 EDT Heart Rate Monitored 80 bpm Respiratory Rate 10 br/min Systolic Blood Pressure Non-Invasive 113 mmHg Diastolic Blood Pressure Non-Invasive 77 mmHg Mean Arterial Pressure (NBP) 88 mmHg 03/22/2025 19:31 EDT Temperature Temporal Artery 36.0 DegC Heart Rate Monitored 83 bpm Respiratory Rate 12 br/min LOW Systolic Blood Pressure Non-Invasive 117 mmHg Diastolic Blood Pressure Non-Invasive 55 mmHg LOW Mean Arterial Pressure (NBP) 69 mmHg 03/22/2025 19:26 EDT Systolic Blood Pressure Non-Invasive 129 mmHg mmHg Diastolic Blood Pressure Non-Invasive 109 mmHg mmHg 03/22/2025 19:25 EDT Heart Rate Monitored 84 bpm bpm Respiratory Rate - Anes 3 br/min br/min 03/22/2025 19:23 EDT Systolic Blood Pressure Non-Invasive 120 mmHg mmHg Diastolic Blood Pressure Non-Invasive 103 mmHg mmHg 03/22/2025 19:21 EDT Systolic Blood Pressure Non-Invasive 119 mmHg mmHg Diastolic Blood Pressure Non-Invasive 68 mmHg mmHg 03/22/2025 19:20 EDT Heart Rate Monitored 71 bpm bpm Respiratory Rate - Anes 6 br/min br/min 03/22/2025 19:18 EDT Systolic Blood Pressure Non-Invasive 114 mmHg mmHg Diastolic Blood Pressure Non-Invasive 69 mmHg mmHg 03/22/2025 19:15 EDT Heart Rate Monitored 71 bpm bpm Respiratory Rate - Anes 6 br/min br/min 03/22/2025 19:11 EDT Systolic Blood Pressure Non-Invasive 97 mmHg mmHg Diastolic Blood Pressure Non-Invasive 63 mmHg mmHg 03/22/2025 19:10 EDT Heart Rate Monitored 80 bpm bpm Respiratory Rate - Anes 7 br/min br/min 03/22/2025 19:08 EDT Systolic Blood Pressure Non-Invasive 97 mmHg mmHg Diastolic Blood Pressure Non-Invasive 57 mmHg mmHg 03/22/2025 19:05 EDT Temperature (Route Not Specified) 35.48 DegC DegC Heart Rate Monitored 86 bpm bpm Respiratory Rate - Anes 12 br/min br/min Systolic Blood Pressure Non-Invasive 94 mmHg mmHg Diastolic Blood Pressure Non-Invasive 60 mmHg mmHg 03/22/2025 19:02 EDT Systolic Blood Pressure Non-Invasive 91 mmHg mmHg Diastolic Blood Pressure Non-Invasive 67 mmHg mmHg 03/22/2025 19:00 EDT Temperature (Route Not Specified) 35.48 DegC DegC Heart Rate Monitored 86 bpm bpm Respiratory Rate - Anes 12 br/min br/min 03/22/2025 18:59 EDT Systolic Blood Pressure Non-Invasive 98 mmHg mmHg Diastolic Blood Pressure Non-Invasive 62 mmHg mmHg 03/22/2025 18:56 EDT Systolic Blood Pressure Non-Invasive 99 mmHg mmHg Diastolic Blood Pressure Non-Invasive 56 mmHg mmHg 03/22/2025 18:55 EDT Temperature (Route Not Specified) 35.5 DegC DegC Heart Rate Monitored 86 bpm bpm Respiratory Rate - Anes 12 br/min br/min 03/22/2025 18:53 EDT Systolic Blood Pressure Non-Invasive 102 mmHg mmHg Diastolic Blood Pressure Non-Invasive 63 mmHg mmHg 03/22/2025 18:50 EDT Temperature (Route Not Specified) 35.53 DegC DegC Heart Rate Monitored 94 bpm bpm Respiratory Rate - Anes 12 br/min br/min Systolic Blood Pressure Non-Invasive 108 mmHg mmHg Diastolic Blood Pressure Non-Invasive 67 mmHg mmHg 03/22/2025 18:47 EDT Systolic Blood Pressure Non-Invasive 102 mmHg mmHg Diastolic Blood Pressure Non-Invasive 59 mmHg mmHg 03/22/2025 18:45 EDT Temperature (Route Not Specified) 35.57 DegC DegC Heart Rate Monitored 88 bpm bpm Respiratory Rate - Anes 10 br/min br/min 03/22/2025 18:44 EDT Systolic Blood Pressure Non-Invasive 104 mmHg mmHg Diastolic Blood Pressure Non-Invasive 69 mmHg mmHg 03/22/2025 18:41 EDT Systolic Blood Pressure Non-Invasive 104 mmHg mmHg Diastolic Blood Pressure Non-Invasive 62 mmHg mmHg 03/22/2025 18:40 EDT Temperature (Route Not Specified) 35.66 DegC DegC Heart Rate Monitored 83 bpm bpm Respiratory Rate - Anes 10 br/min br/min 03/22/2025 18:38 EDT Systolic Blood Pressure Non-Invasive 100 mmHg mmHg Diastolic Blood Pressure Non-Invasive 63 mmHg mmHg 03/22/2025 18:36 EDT Systolic Blood Pressure Non-Invasive 108 mmHg mmHg Diastolic Blood Pressure Non-Invasive 65 mmHg mmHg 03/22/2025 18:35 EDT Temperature (Route Not Specified) 35.78 DegC DegC Heart Rate Monitored 71 bpm bpm Respiratory Rate - Anes 10 br/min br/min Systolic Blood Pressure Non-Invasive 64 mmHg mmHg Diastolic Blood Pressure Non-Invasive 38 mmHg mmHg 03/22/2025 18:32 EDT Systolic Blood Pressure Non-Invasive 64 mmHg mmHg Diastolic Blood Pressure Non-Invasive 38 mmHg mmHg 03/22/2025 18:30 EDT Temperature (Route Not Specified) 35.79 DegC DegC Heart Rate Monitored 86 bpm bpm Respiratory Rate - Anes 11 br/min br/min Systolic Blood Pressure Non-Invasive 125 mmHg mmHg Diastolic Blood Pressure Non-Invasive 111 mmHg mmHg 03/22/2025 18:25 EDT Temperature (Route Not Specified) 35.7 DegC DegC Heart Rate Monitored 92 bpm bpm Respiratory Rate - Anes 13 br/min br/min Systolic Blood Pressure Non-Invasive 60 mmHg mmHg Diastolic Blood Pressure Non-Invasive 46 mmHg mmHg 03/22/2025 18:20 EDT Temperature (Route Not Specified) 35.7 DegC DegC Heart Rate Monitored 95 bpm bpm Respiratory Rate - Anes 13 br/min br/min Systolic Blood Pressure Non-Invasive 112 mmHg mmHg Diastolic Blood Pressure Non-Invasive 60 mmHg mmHg 03/22/2025 18:15 EDT Temperature (Route Not Specified) 35.7 DegC DegC Heart Rate Monitored 93 bpm bpm Respiratory Rate - Anes 13 br/min br/min Systolic Blood Pressure Non-Invasive 117 mmHg mmHg Diastolic Blood Pressure Non-Invasive 68 mmHg mmHg 03/22/2025 18:10 EDT Temperature (Route Not Specified) 35.7 DegC DegC Heart Rate Monitored 96 bpm bpm Respiratory Rate - Anes 13 br/min br/min Systolic Blood Pressure Non-Invasive 117 mmHg mmHg Diastolic Blood Pressure Non-Invasive 65 mmHg mmHg 03/22/2025 18:05 EDT Temperature (Route Not Specified) 35.7 DegC DegC Heart Rate Monitored 99 bpm bpm Respiratory Rate - Anes 13 br/min br/min Systolic Blood Pressure Non-Invasive 120 mmHg mmHg Diastolic Blood Pressure Non-Invasive 68 mmHg mmHg 03/22/2025 18:00 EDT Temperature (Route Not Specified) 35.7 DegC DegC Heart Rate Monitored 90 bpm bpm Respiratory Rate - Anes 13 br/min br/min Systolic Blood Pressure Non-Invasive 123 mmHg mmHg Diastolic Blood Pressure Non-Invasive 72 mmHg mmHg 03/22/2025 17:55 EDT Temperature (Route Not Specified) 35.7 DegC DegC Heart Rate Monitored 92 bpm bpm Respiratory Rate - Anes 13 br/min br/min Systolic Blood Pressure Non-Invasive 115 mmHg mmHg Diastolic Blood Pressure Non-Invasive 67 mmHg mmHg 03/22/2025 17:50 EDT Temperature (Route Not Specified) 35.7 DegC DegC Heart Rate Monitored 92 bpm bpm Respiratory Rate - Anes 13 br/min br/min Systolic Blood Pressure Non-Invasive 118 mmHg mmHg Diastolic Blood Pressure Non-Invasive 65 mmHg mmHg 03/22/2025 17:45 EDT Temperature (Route Not Specified) 35.7 DegC DegC Heart Rate Monitored 90 bpm bpm Respiratory Rate - Anes 13 br/min br/min Systolic Blood Pressure Non-Invasive 116 mmHg mmHg Diastolic Blood Pressure Non-Invasive 67 mmHg mmHg 03/22/2025 17:40 EDT Temperature (Route Not Specified) 35.7 DegC DegC Heart Rate Monitored 90 bpm bpm Respiratory Rate - Anes 13 br/min br/min Systolic Blood Pressure Non-Invasive 121 mmHg mmHg Diastolic Blood Pressure Non-Invasive 64 mmHg mmHg 03/22/2025 17:35 EDT Temperature (Route Not Specified) 35.76 DegC DegC Heart Rate Monitored 88 bpm bpm Respiratory Rate - Anes 13 br/min br/min Systolic Blood Pressure Non-Invasive 123 mmHg mmHg Diastolic Blood Pressure Non-Invasive 71 mmHg mmHg 03/22/2025 17:32 EDT Systolic Blood Pressure Non-Invasive 117 mmHg mmHg Diastolic Blood Pressure Non-Invasive 68 mmHg mmHg 03/22/2025 17:30 EDT Temperature (Route Not Specified) 35.77 DegC DegC Heart Rate Monitored 85 bpm bpm Respiratory Rate - Anes 13 br/min br/min 03/22/2025 17:29 EDT Systolic Blood Pressure Non-Invasive 117 mmHg mmHg Diastolic Blood Pressure Non-Invasive 69 mmHg mmHg 03/22/2025 17:26 EDT Systolic Blood Pressure Non-Invasive 117 mmHg mmHg Diastolic Blood Pressure Non-Invasive 68 mmHg mmHg 03/22/2025 17:25 EDT Temperature (Route Not Specified) 35.77 DegC DegC Heart Rate Monitored 85 bpm bpm Respiratory Rate - Anes 13 br/min br/min 03/22/2025 17:23 EDT Systolic Blood Pressure Non-Invasive 118 mmHg mmHg Diastolic Blood Pressure Non-Invasive 70 mmHg mmHg 03/22/2025 17:20 EDT Temperature (Route Not Specified) 35.8 DegC DegC Heart Rate Monitored 80 bpm bpm Respiratory Rate - Anes 13 br/min br/min Systolic Blood Pressure Non-Invasive 120 mmHg mmHg Diastolic Blood Pressure Non-Invasive 69 mmHg mmHg 03/22/2025 17:17 EDT Systolic Blood Pressure Non-Invasive 120 mmHg mmHg Diastolic Blood Pressure Non-Invasive 70 mmHg mmHg 03/22/2025 17:15 EDT Temperature (Route Not Specified) 35.8 DegC DegC Heart Rate Monitored 85 bpm bpm Respiratory Rate - Anes 13 br/min br/min 03/22/2025 17:14 EDT Systolic Blood Pressure Non-Invasive 121 mmHg mmHg Diastolic Blood Pressure Non-Invasive 69 mmHg mmHg 03/22/2025 17:11 EDT Systolic Blood Pressure Non-Invasive 121 mmHg mmHg Diastolic Blood Pressure Non-Invasive 72 mmHg mmHg 03/22/2025 17:10 EDT Temperature (Route Not Specified) 35.79 DegC DegC Heart Rate Monitored 88 bpm bpm Respiratory Rate - Anes 14 br/min br/min 03/22/2025 17:08 EDT Systolic Blood Pressure Non-Invasive 117 mmHg mmHg Diastolic Blood Pressure Non-Invasive 71 mmHg mmHg 03/22/2025 17:05 EDT Temperature (Route Not Specified) 35.79 DegC DegC Heart Rate Monitored 92 bpm bpm Respiratory Rate - Anes 14 br/min br/min Systolic Blood Pressure Non-Invasive 121 mmHg mmHg Diastolic Blood Pressure Non-Invasive 73 mmHg mmHg 03/22/2025 17:02 EDT Systolic Blood Pressure Non-Invasive 125 mmHg mmHg Diastolic Blood Pressure Non-Invasive 77 mmHg mmHg 03/22/2025 17:00 EDT Temperature (Route Not Specified) 35.79 DegC DegC Heart Rate Monitored 0 bpm bpm Respiratory Rate - Anes 14 br/min br/min 03/22/2025 16:59 EDT Systolic Blood Pressure Non-Invasive 121 mmHg mmHg Diastolic Blood Pressure Non-Invasive 73 mmHg mmHg 03/22/2025 16:56 EDT Systolic Blood Pressure Non-Invasive 119 mmHg mmHg Diastolic Blood Pressure Non-Invasive 69 mmHg mmHg 03/22/2025 16:55 EDT Temperature (Route Not Specified) 35.78 DegC DegC Heart Rate Monitored 87 bpm bpm Respiratory Rate - Anes 14 br/min br/min 03/22/2025 16:53 EDT Systolic Blood Pressure Non-Invasive 117 mmHg mmHg Diastolic Blood Pressure Non-Invasive 69 mmHg mmHg 03/22/2025 16:50 EDT Temperature (Route Not Specified) 35.79 DegC DegC Heart Rate Monitored 87 bpm bpm Respiratory Rate - Anes 14 br/min br/min Systolic Blood Pressure Non-Invasive 118 mmHg mmHg Diastolic Blood Pressure Non-Invasive 71 mmHg mmHg 03/22/2025 16:47 EDT Systolic Blood Pressure Non-Invasive 115 mmHg mmHg Diastolic Blood Pressure Non-Invasive 70 mmHg mmHg 03/22/2025 16:45 EDT Temperature (Route Not Specified) 35.8 DegC DegC Heart Rate Monitored 99 bpm bpm Respiratory Rate - Anes 14 br/min br/min 03/22/2025 16:44 EDT Systolic Blood Pressure Non-Invasive 110 mmHg mmHg Diastolic Blood Pressure Non-Invasive 70 mmHg mmHg 03/22/2025 16:41 EDT Systolic Blood Pressure Non-Invasive 112 mmHg mmHg Diastolic Blood Pressure Non-Invasive 66 mmHg mmHg 03/22/2025 16:40 EDT Temperature (Route Not Specified) 35.82 DegC DegC Heart Rate Monitored 85 bpm bpm Respiratory Rate - Anes 14 br/min br/min 03/22/2025 16:38 EDT Systolic Blood Pressure Non-Invasive 114 mmHg mmHg Diastolic Blood Pressure Non-Invasive 65 mmHg mmHg 03/22/2025 16:35 EDT Temperature (Route Not Specified) 35.86 DegC DegC Heart Rate Monitored 80 bpm bpm Respiratory Rate - Anes 14 br/min br/min Systolic Blood Pressure Non-Invasive 100 mmHg mmHg Diastolic Blood Pressure Non-Invasive 58 mmHg mmHg 03/22/2025 16:32 EDT Systolic Blood Pressure Non-Invasive 99 mmHg mmHg Diastolic Blood Pressure Non-Invasive 57 mmHg mmHg 03/22/2025 16:30 EDT Temperature (Route Not Specified) 35.89 DegC DegC Heart Rate Monitored 90 bpm bpm Respiratory Rate - Anes 14 br/min br/min 03/22/2025 16:29 EDT Systolic Blood Pressure Non-Invasive 99 mmHg mmHg Diastolic Blood Pressure Non-Invasive 58 mmHg mmHg 03/22/2025 16:26 EDT Systolic Blood Pressure Non-Invasive 102 mmHg mmHg Diastolic Blood Pressure Non-Invasive 55 mmHg mmHg 03/22/2025 16:25 EDT Temperature (Route Not Specified) 35.91 DegC DegC Heart Rate Monitored 95 bpm bpm Respiratory Rate - Anes 14 br/min br/min 03/22/2025 16:23 EDT Systolic Blood Pressure Non-Invasive 109 mmHg mmHg Diastolic Blood Pressure Non-Invasive 69 mmHg mmHg 03/22/2025 16:20 EDT Temperature (Route Not Specified) 35.98 DegC DegC Heart Rate Monitored 95 bpm bpm Respiratory Rate - Anes 14 br/min br/min Systolic Blood Pressure Non-Invasive 112 mmHg mmHg Diastolic Blood Pressure Non-Invasive 61 mmHg mmHg 03/22/2025 16:17 EDT Systolic Blood Pressure Non-Invasive 120 mmHg mmHg Diastolic Blood Pressure Non-Invasive 69 mmHg mmHg 03/22/2025 16:15 EDT Temperature (Route Not Specified) 36.02 DegC DegC Heart Rate Monitored 95 bpm bpm (Modified) Respiratory Rate - Anes 14 br/min br/min 03/22/2025 16:14 EDT Systolic Blood Pressure Non-Invasive 111 mmHg mmHg Diastolic Blood Pressure Non-Invasive 68 mmHg mmHg 03/22/2025 16:11 EDT Systolic Blood Pressure Non-Invasive 124 mmHg mmHg Diastolic Blood Pressure Non-Invasive 63 mmHg mmHg 03/22/2025 16:10 EDT Temperature (Route Not Specified) 36.08 DegC DegC Heart Rate Monitored 88 bpm bpm Respiratory Rate - Anes 14 br/min br/min 03/22/2025 16:08 EDT Systolic Blood Pressure Non-Invasive 120 mmHg mmHg Diastolic Blood Pressure Non-Invasive 70 mmHg mmHg 03/22/2025 16:05 EDT Temperature (Route Not Specified) 36.12 DegC DegC Heart Rate Monitored 78 bpm bpm Respiratory Rate - Anes 12 br/min br/min Systolic Blood Pressure Non-Invasive 97 mmHg mmHg Diastolic Blood Pressure Non-Invasive 61 mmHg mmHg 03/22/2025 16:02 EDT Systolic Blood Pressure Non-Invasive 90 mmHg mmHg Diastolic Blood Pressure Non-Invasive 53 mmHg mmHg 03/22/2025 16:00 EDT Temperature (Route Not Specified) 36.16 DegC DegC Heart Rate Monitored 81 bpm bpm Respiratory Rate - Anes 12 br/min br/min 03/22/2025 15:59 EDT Systolic Blood Pressure Non-Invasive 90 mmHg mmHg Diastolic Blood Pressure Non-Invasive 55 mmHg mmHg 03/22/2025 15:57 EDT Systolic Blood Pressure Non-Invasive 99 mmHg mmHg Diastolic Blood Pressure Non-Invasive 48 mmHg mmHg 03/22/2025 15:55 EDT Temperature (Route Not Specified) 36.18 DegC DegC Heart Rate Monitored 79 bpm bpm Respiratory Rate - Anes 12 br/min br/min 03/22/2025 15:50 EDT Heart Rate Monitored 81 bpm bpm Respiratory Rate - Anes 12 br/min br/min 03/22/2025 15:45 EDT Heart Rate Monitored 80 bpm bpm Respiratory Rate - Anes 12 br/min br/min Systolic Blood Pressure Non-Invasive 109 mmHg mmHg Diastolic Blood Pressure Non-Invasive 60 mmHg mmHg 03/22/2025 15:40 EDT Heart Rate Monitored 85 bpm bpm Respiratory Rate - Anes 12 br/min br/min 03/22/2025 15:38 EDT Systolic Blood Pressure Non-Invasive 96 mmHg mmHg Diastolic Blood Pressure Non-Invasive 69 mmHg mmHg 03/22/2025 15:35 EDT Heart Rate Monitored 90 bpm bpm Respiratory Rate - Anes 12 br/min br/min 03/22/2025 15:30 EDT Heart Rate Monitored 92 bpm bpm Respiratory Rate - Anes 12 br/min br/min 03/22/2025 15:27 EDT Systolic Blood Pressure Non-Invasive 93 mmHg mmHg Diastolic Blood Pressure Non-Invasive 64 mmHg mmHg 03/22/2025 15:25 EDT Temperature (Route Not Specified) 36.39 DegC DegC Heart Rate Monitored 98 bpm bpm Respiratory Rate - Anes 12 br/min br/min 03/22/2025 15:24 EDT Systolic Blood Pressure Non-Invasive 103 mmHg mmHg Diastolic Blood Pressure Non-Invasive 54 mmHg mmHg 03/22/2025 15:21 EDT Systolic Blood Pressure Non-Invasive 105 mmHg mmHg Diastolic Blood Pressure Non-Invasive 51 mmHg mmHg 03/22/2025 15:20 EDT Temperature (Route Not Specified) 36.38 DegC DegC Heart Rate Monitored 92 bpm bpm Respiratory Rate - Anes 12 br/min br/min 03/22/2025 15:18 EDT Systolic Blood Pressure Non-Invasive 103 mmHg mmHg Diastolic Blood Pressure Non-Invasive 59 mmHg mmHg 03/22/2025 15:15 EDT Temperature (Route Not Specified) 36.37 DegC DegC Heart Rate Monitored 99 bpm bpm Respiratory Rate - Anes 12 br/min br/min Systolic Blood Pressure Non-Invasive 114 mmHg mmHg Diastolic Blood Pressure Non-Invasive 62 mmHg mmHg 03/22/2025 15:13 EDT Temperature (Route Not Specified) 36.37 DegC DegC Heart Rate Monitored 102 bpm bpm Respiratory Rate - Anes 12 br/min br/min 03/22/2025 15:12 EDT Temperature (Route Not Specified) 36.37 DegC DegC Heart Rate Monitored 89 bpm bpm Respiratory Rate - Anes 12 br/min br/min Systolic Blood Pressure Non-Invasive 105 mmHg mmHg Diastolic Blood Pressure Non-Invasive 72 mmHg mmHg 03/22/2025 15:11 EDT Temperature (Route Not Specified) 36.36 DegC DegC Heart Rate Monitored 89 bpm bpm Respiratory Rate - Anes 12 br/min br/min 03/22/2025 15:10 EDT Heart Rate Monitored 92 bpm bpm 03/22/2025 15:09 EDT Heart Rate Monitored 102 bpm bpm 03/22/2025 15:08 EDT Temperature (Route Not Specified) 36.36 DegC DegC Heart Rate Monitored 106 bpm bpm Respiratory Rate - Anes 12 br/min br/min 03/22/2025 15:07 EDT Temperature (Route Not Specified) 36.36 DegC DegC Heart Rate Monitored 91 bpm bpm Respiratory Rate - Anes 12 br/min br/min 03/22/2025 15:06 EDT Temperature (Route Not Specified) 36.35 DegC DegC Heart Rate Monitored 92 bpm bpm Respiratory Rate - Anes 12 br/min br/min Systolic Blood Pressure Non-Invasive 128 mmHg mmHg Diastolic Blood Pressure Non-Invasive 73 mmHg mmHg 03/22/2025 15:05 EDT Temperature (Route Not Specified) 36.34 DegC DegC Heart Rate Monitored 100 bpm bpm Respiratory Rate - Anes 12 br/min br/min 03/22/2025 15:04 EDT Temperature (Route Not Specified) 36.33 DegC DegC Heart Rate Monitored 102 bpm bpm Respiratory Rate - Anes 12 br/min br/min 03/22/2025 15:03 EDT Temperature (Route Not Specified) 36.34 DegC DegC Heart Rate Monitored 89 bpm bpm Respiratory Rate - Anes 12 br/min br/min Systolic Blood Pressure Non-Invasive 136 mmHg mmHg Diastolic Blood Pressure Non-Invasive 75 mmHg mmHg 03/22/2025 15:02 EDT Temperature (Route Not Specified) 36.34 DegC DegC Heart Rate Monitored 103 bpm bpm Respiratory Rate - Anes 12 br/min br/min 03/22/2025 15:01 EDT Temperature (Route Not Specified) 36.33 DegC DegC Heart Rate Monitored 101 bpm bpm Respiratory Rate - Anes 12 br/min br/min 03/22/2025 15:00 EDT Temperature (Route Not Specified) 36.32 DegC DegC Heart Rate Monitored 91 bpm bpm Respiratory Rate - Anes 12 br/min br/min Systolic Blood Pressure Non-Invasive 127 mmHg mmHg Diastolic Blood Pressure Non-Invasive 61 mmHg mmHg 03/22/2025 14:57 EDT Systolic Blood Pressure Non-Invasive 127 mmHg mmHg Diastolic Blood Pressure Non-Invasive 75 mmHg mmHg 03/22/2025 14:55 EDT Temperature (Route Not Specified) 36.3 DegC DegC Heart Rate Monitored 93 bpm bpm Respiratory Rate - Anes 12 br/min br/min 03/22/2025 14:54 EDT Systolic Blood Pressure Non-Invasive 147 mmHg mmHg Diastolic Blood Pressure Non-Invasive 66 mmHg mmHg 03/22/2025 14:51 EDT Systolic Blood Pressure Non-Invasive 133 mmHg mmHg Diastolic Blood Pressure Non-Invasive 66 mmHg mmHg 03/22/2025 14:50 EDT Temperature (Route Not Specified) 36.27 DegC DegC Heart Rate Monitored 93 bpm bpm Respiratory Rate - Anes 12 br/min br/min 03/22/2025 14:48 EDT Systolic Blood Pressure Non-Invasive 130 mmHg mmHg Diastolic Blood Pressure Non-Invasive 67 mmHg mmHg 03/22/2025 14:45 EDT Temperature (Route Not Specified) 36.25 DegC DegC Heart Rate Monitored 122 bpm bpm Respiratory Rate - Anes 12 br/min br/min Systolic Blood Pressure Non-Invasive 132 mmHg mmHg Diastolic Blood Pressure Non-Invasive 67 mmHg mmHg 03/22/2025 14:42 EDT Systolic Blood Pressure Non-Invasive 139 mmHg mmHg Diastolic Blood Pressure Non-Invasive 65 mmHg mmHg 03/22/2025 14:40 EDT Temperature (Route Not Specified) 36.22 DegC DegC Heart Rate Monitored 95 bpm bpm Respiratory Rate - Anes 12 br/min br/min 03/22/2025 14:39 EDT Systolic Blood Pressure Non-Invasive 141 mmHg mmHg Diastolic Blood Pressure Non-Invasive 73 mmHg mmHg 03/22/2025 14:36 EDT Systolic Blood Pressure Non-Invasive 144 mmHg mmHg Diastolic Blood Pressure Non-Invasive 80 mmHg mmHg 03/22/2025 14:35 EDT Temperature (Route Not Specified) 36.2 DegC DegC Heart Rate Monitored 97 bpm bpm Respiratory Rate - Anes 12 br/min br/min 03/22/2025 14:34 EDT Temperature (Route Not Specified) 36.19 DegC DegC Heart Rate Monitored 110 bpm bpm Respiratory Rate - Anes 12 br/min br/min 03/22/2025 14:33 EDT Temperature (Route Not Specified) 36.18 DegC DegC Heart Rate Monitored 89 bpm bpm Respiratory Rate - Anes 12 br/min br/min Systolic Blood Pressure Non-Invasive 134 mmHg mmHg Diastolic Blood Pressure Non-Invasive 69 mmHg mmHg 03/22/2025 14:32 EDT Temperature (Route Not Specified) 36.17 DegC DegC Heart Rate Monitored 89 bpm bpm Respiratory Rate - Anes 12 br/min br/min 03/22/2025 14:31 EDT Temperature (Route Not Specified) 36.16 DegC DegC Heart Rate Monitored 0 bpm bpm Respiratory Rate - Anes 12 br/min br/min 03/22/2025 14:30 EDT Temperature (Route Not Specified) 36.16 DegC DegC Heart Rate Monitored 0 bpm bpm Respiratory Rate - Anes 12 br/min br/min Systolic Blood Pressure Non-Invasive 147 mmHg mmHg Diastolic Blood Pressure Non-Invasive 63 mmHg mmHg 03/22/2025 14:29 EDT Temperature (Route Not Specified) 36.15 DegC DegC Heart Rate Monitored 91 bpm bpm Respiratory Rate - Anes 12 br/min br/min 03/22/2025 14:28 EDT Temperature (Route Not Specified) 36.14 DegC DegC Heart Rate Monitored 109 bpm bpm Respiratory Rate - Anes 12 br/min br/min 03/22/2025 14:27 EDT Temperature (Route Not Specified) 36.13 DegC DegC Heart Rate Monitored 86 bpm bpm Respiratory Rate - Anes 12 br/min br/min Systolic Blood Pressure Non-Invasive 136 mmHg mmHg Diastolic Blood Pressure Non-Invasive 76 mmHg mmHg 03/22/2025 14:26 EDT Temperature (Route Not Specified) 36.13 DegC DegC Heart Rate Monitored 89 bpm bpm Respiratory Rate - Anes 12 br/min br/min 03/22/2025 14:25 EDT Temperature (Route Not Specified) 36.12 DegC DegC Heart Rate Monitored 100 bpm bpm Respiratory Rate - Anes 12 br/min br/min 03/22/2025 14:24 EDT Temperature (Route Not Specified) 36.11 DegC DegC Heart Rate Monitored 103 bpm bpm Respiratory Rate - Anes 12 br/min br/min Systolic Blood Pressure Non-Invasive 159 mmHg mmHg Diastolic Blood Pressure Non-Invasive 77 mmHg mmHg 03/22/2025 14:23 EDT Temperature (Route Not Specified) 36.1 DegC DegC Heart Rate Monitored 101 bpm bpm Respiratory Rate - Anes 12 br/min br/min 03/22/2025 14:22 EDT Temperature (Route Not Specified) 36.09 DegC DegC Heart Rate Monitored 93 bpm bpm Respiratory Rate - Anes 12 br/min br/min 03/22/2025 14:21 EDT Temperature (Route Not Specified) 36.09 DegC DegC Heart Rate Monitored 89 bpm bpm Respiratory Rate - Anes 12 br/min br/min Systolic Blood Pressure Non-Invasive 143 mmHg mmHg Diastolic Blood Pressure Non-Invasive 71 mmHg mmHg 03/22/2025 14:20 EDT Temperature (Route Not Specified) 36.09 DegC DegC Heart Rate Monitored 89 bpm bpm Respiratory Rate - Anes 12 br/min br/min 03/22/2025 14:19 EDT Temperature (Route Not Specified) 36.07 DegC DegC Heart Rate Monitored 91 bpm bpm Respiratory Rate - Anes 12 br/min br/min 03/22/2025 14:18 EDT Temperature (Route Not Specified) 36.07 DegC DegC Heart Rate Monitored 87 bpm bpm Respiratory Rate - Anes 12 br/min br/min Systolic Blood Pressure Non-Invasive 133 mmHg mmHg Diastolic Blood Pressure Non-Invasive 73 mmHg mmHg 03/22/2025 14:17 EDT Temperature (Route Not Specified) 36.07 DegC DegC Heart Rate Monitored 100 bpm bpm Respiratory Rate - Anes 12 br/min br/min 03/22/2025 14:16 EDT Temperature (Route Not Specified) 36.06 DegC DegC Heart Rate Monitored 97 bpm bpm Respiratory Rate - Anes 12 br/min br/min 03/22/2025 14:15 EDT Temperature (Route Not Specified) 36.05 DegC DegC Heart Rate Monitored 95 bpm bpm Respiratory Rate - Anes 12 br/min br/min Systolic Blood Pressure Non-Invasive 157 mmHg mmHg Diastolic Blood Pressure Non-Invasive 65 mmHg mmHg 03/22/2025 14:14 EDT Temperature (Route Not Specified) 36.04 DegC DegC Heart Rate Monitored 84 bpm bpm Respiratory Rate - Anes 12 br/min br/min 03/22/2025 14:13 EDT Temperature (Route Not Specified) 36.03 DegC DegC Heart Rate Monitored 106 bpm bpm Respiratory Rate - Anes 12 br/min br/min 03/22/2025 14:12 EDT Temperature (Route Not Specified) 36.03 DegC DegC Heart Rate Monitored 92 bpm bpm Respiratory Rate - Anes 12 br/min br/min Systolic Blood Pressure Non-Invasive 150 mmHg mmHg Diastolic Blood Pressure Non-Invasive 67 mmHg mmHg 03/22/2025 14:11 EDT Temperature (Route Not Specified) 36.02 DegC DegC Heart Rate Monitored 92 bpm bpm Respiratory Rate - Anes 12 br/min br/min 03/22/2025 14:10 EDT Temperature (Route Not Specified) 36.01 DegC DegC Heart Rate Monitored 85 bpm bpm Respiratory Rate - Anes 12 br/min br/min 03/22/2025 14:09 EDT Systolic Blood Pressure Non-Invasive 147 mmHg mmHg Diastolic Blood Pressure Non-Invasive 75 mmHg mmHg 03/22/2025 14:06 EDT Systolic Blood Pressure Non-Invasive 136 mmHg mmHg Diastolic Blood Pressure Non-Invasive 68 mmHg mmHg 03/22/2025 14:05 EDT Temperature (Route Not Specified) 35.97 DegC DegC Heart Rate Monitored 93 bpm bpm Respiratory Rate - Anes 12 br/min br/min 03/22/2025 14:03 EDT Systolic Blood Pressure Non-Invasive 154 mmHg mmHg Diastolic Blood Pressure Non-Invasive 73 mmHg mmHg 03/22/2025 14:00 EDT Temperature (Route Not Specified) 35.96 DegC DegC Heart Rate Monitored 113 bpm bpm Respiratory Rate - Anes 12 br/min br/min Systolic Blood Pressure Non-Invasive 145 mmHg mmHg Diastolic Blood Pressure Non-Invasive 67 mmHg mmHg 03/22/2025 13:57 EDT Systolic Blood Pressure Non-Invasive 155 mmHg mmHg Diastolic Blood Pressure Non-Invasive 68 mmHg mmHg 03/22/2025 13:55 EDT Temperature (Route Not Specified) 35.94 DegC DegC Heart Rate Monitored 90 bpm bpm Respiratory Rate - Anes 12 br/min br/min 03/22/2025 13:54 EDT Systolic Blood Pressure Non-Invasive 152 mmHg mmHg Diastolic Blood Pressure Non-Invasive 66 mmHg mmHg 03/22/2025 13:51 EDT Systolic Blood Pressure Non-Invasive 145 mmHg mmHg Diastolic Blood Pressure Non-Invasive 69 mmHg mmHg 03/22/2025 13:50 EDT Temperature (Route Not Specified) 35.91 DegC DegC Heart Rate Monitored 86 bpm bpm Respiratory Rate - Anes 12 br/min br/min 03/22/2025 13:48 EDT Systolic Blood Pressure Non-Invasive 114 mmHg mmHg Diastolic Blood Pressure Non-Invasive 54 mmHg mmHg 03/22/2025 13:45 EDT Temperature (Route Not Specified) 35.87 DegC DegC Heart Rate Monitored 81 bpm bpm Respiratory Rate - Anes 12 br/min br/min Systolic Blood Pressure Non-Invasive 113 mmHg mmHg Diastolic Blood Pressure Non-Invasive 57 mmHg mmHg 03/22/2025 13:42 EDT Systolic Blood Pressure Non-Invasive 114 mmHg mmHg Diastolic Blood Pressure Non-Invasive 61 mmHg mmHg 03/22/2025 13:40 EDT Temperature (Route Not Specified) 35.84 DegC DegC Heart Rate Monitored 90 bpm bpm Respiratory Rate - Anes 12 br/min br/min 03/22/2025 13:39 EDT Systolic Blood Pressure Non-Invasive 128 mmHg mmHg Diastolic Blood Pressure Non-Invasive 73 mmHg mmHg 03/22/2025 13:36 EDT Systolic Blood Pressure Non-Invasive 113 mmHg mmHg Diastolic Blood Pressure Non-Invasive 54 mmHg mmHg 03/22/2025 13:35 EDT Temperature (Route Not Specified) 35.8 DegC DegC Heart Rate Monitored 77 bpm bpm Respiratory Rate - Anes 12 br/min br/min 03/22/2025 13:33 EDT Systolic Blood Pressure Non-Invasive 123 mmHg mmHg Diastolic Blood Pressure Non-Invasive 52 mmHg mmHg 03/22/2025 13:30 EDT Temperature (Route Not Specified) 35.75 DegC DegC Heart Rate Monitored 85 bpm bpm Respiratory Rate - Anes 12 br/min br/min Systolic Blood Pressure Non-Invasive 121 mmHg mmHg Diastolic Blood Pressure Non-Invasive 60 mmHg mmHg 03/22/2025 13:27 EDT Systolic Blood Pressure Non-Invasive 119 mmHg mmHg Diastolic Blood Pressure Non-Invasive 65 mmHg mmHg 03/22/2025 13:25 EDT Temperature (Route Not Specified) 35.76 DegC DegC Heart Rate Monitored 69 bpm bpm Respiratory Rate - Anes 12 br/min br/min 03/22/2025 13:24 EDT Systolic Blood Pressure Non-Invasive 140 mmHg mmHg Diastolic Blood Pressure Non-Invasive 66 mmHg mmHg 03/22/2025 13:21 EDT Systolic Blood Pressure Non-Invasive 131 mmHg mmHg Diastolic Blood Pressure Non-Invasive 64 mmHg mmHg 03/22/2025 13:20 EDT Temperature (Route Not Specified) 35.74 DegC DegC Heart Rate Monitored 95 bpm bpm Respiratory Rate - Anes 12 br/min br/min 03/22/2025 13:18 EDT Systolic Blood Pressure Non-Invasive 141 mmHg mmHg Diastolic Blood Pressure Non-Invasive 79 mmHg mmHg 03/22/2025 13:15 EDT Temperature (Route Not Specified) 35.68 DegC DegC Heart Rate Monitored 89 bpm bpm Respiratory Rate - Anes 12 br/min br/min Systolic Blood Pressure Non-Invasive 138 mmHg mmHg Diastolic Blood Pressure Non-Invasive 69 mmHg mmHg 03/22/2025 13:12 EDT Systolic Blood Pressure Non-Invasive 142 mmHg mmHg Diastolic Blood Pressure Non-Invasive 66 mmHg mmHg 03/22/2025 13:10 EDT Temperature (Route Not Specified) 35.64 DegC DegC Heart Rate Monitored 73 bpm bpm Respiratory Rate - Anes 12 br/min br/min 03/22/2025 13:09 EDT Systolic Blood Pressure Non-Invasive 150 mmHg mmHg Diastolic Blood Pressure Non-Invasive 70 mmHg mmHg 03/22/2025 13:06 EDT Systolic Blood Pressure Non-Invasive 144 mmHg mmHg Diastolic Blood Pressure Non-Invasive 68 mmHg mmHg 03/22/2025 13:05 EDT Temperature (Route Not Specified) 35.59 DegC DegC Heart Rate Monitored 81 bpm bpm Respiratory Rate - Anes 12 br/min br/min 03/22/2025 13:03 EDT Systolic Blood Pressure Non-Invasive 150 mmHg mmHg Diastolic Blood Pressure Non-Invasive 74 mmHg mmHg 03/22/2025 13:00 EDT Temperature (Route Not Specified) 35.53 DegC DegC Heart Rate Monitored 94 bpm bpm Respiratory Rate - Anes 12 br/min br/min Systolic Blood Pressure Non-Invasive 148 mmHg mmHg Diastolic Blood Pressure Non-Invasive 66 mmHg mmHg 03/22/2025 12:57 EDT Systolic Blood Pressure Non-Invasive 144 mmHg mmHg Diastolic Blood Pressure Non-Invasive 58 mmHg mmHg 03/22/2025 12:55 EDT Temperature (Route Not Specified) 35.48 DegC DegC Heart Rate Monitored 94 bpm bpm Respiratory Rate - Anes 12 br/min br/min 03/22/2025 12:54 EDT Systolic Blood Pressure Non-Invasive 150 mmHg mmHg Diastolic Blood Pressure Non-Invasive 64 mmHg mmHg 03/22/2025 12:51 EDT Systolic Blood Pressure Non-Invasive 140 mmHg mmHg Diastolic Blood Pressure Non-Invasive 72 mmHg mmHg 03/22/2025 12:50 EDT Temperature (Route Not Specified) 35.44 DegC DegC Heart Rate Monitored 92 bpm bpm Respiratory Rate - Anes 12 br/min br/min 03/22/2025 12:48 EDT Systolic Blood Pressure Non-Invasive 149 mmHg mmHg Diastolic Blood Pressure Non-Invasive 62 mmHg mmHg 03/22/2025 12:45 EDT Temperature (Route Not Specified) 35.48 DegC DegC Heart Rate Monitored 84 bpm bpm Respiratory Rate - Anes 12 br/min br/min Systolic Blood Pressure Non-Invasive 140 mmHg mmHg Diastolic Blood Pressure Non-Invasive 64 mmHg mmHg 03/22/2025 12:42 EDT Systolic Blood Pressure Non-Invasive 140 mmHg mmHg Diastolic Blood Pressure Non-Invasive 64 mmHg mmHg 03/22/2025 12:40 EDT Heart Rate Monitored 81 bpm bpm Systolic Blood Pressure Non-Invasive 140 mmHg mmHg Diastolic Blood Pressure Non-Invasive 54 mmHg mmHg 03/22/2025 12:38 EDT Heart Rate Monitored 83 bpm bpm Systolic Blood Pressure Non-Invasive 138 mmHg mmHg Diastolic Blood Pressure Non-Invasive 56 mmHg mmHg 03/22/2025 12:36 EDT Heart Rate Monitored 88 bpm bpm Systolic Blood Pressure Non-Invasive 136 mmHg mmHg Diastolic Blood Pressure Non-Invasive 62 mmHg mmHg 03/22/2025 12:34 EDT Heart Rate Monitored 90 bpm bpm 03/22/2025 12:33 EDT Systolic Blood Pressure Non-Invasive 139 mmHg mmHg Diastolic Blood Pressure Non-Invasive 66 mmHg mmHg 03/22/2025 12:30 EDT Temperature (Route Not Specified) 35.45 DegC DegC Heart Rate Monitored 90 bpm bpm Respiratory Rate - Anes 12 br/min br/min Systolic Blood Pressure Non-Invasive 137 mmHg mmHg Diastolic Blood Pressure Non-Invasive 66 mmHg mmHg 03/22/2025 12:27 EDT Systolic Blood Pressure Non-Invasive 144 mmHg mmHg Diastolic Blood Pressure Non-Invasive 66 mmHg mmHg 03/22/2025 12:25 EDT Temperature (Route Not Specified) 35.49 DegC DegC Heart Rate Monitored 98 bpm bpm Respiratory Rate - Anes 12 br/min br/min 03/22/2025 12:24 EDT Systolic Blood Pressure Non-Invasive 135 mmHg mmHg Diastolic Blood Pressure Non-Invasive 63 mmHg mmHg 03/22/2025 12:21 EDT Systolic Blood Pressure Non-Invasive 141 mmHg mmHg Diastolic Blood Pressure Non-Invasive 71 mmHg mmHg 03/22/2025 12:20 EDT Temperature (Route Not Specified) 35.53 DegC DegC Heart Rate Monitored 94 bpm bpm Respiratory Rate - Anes 12 br/min br/min 03/22/2025 12:18 EDT Systolic Blood Pressure Non-Invasive 129 mmHg mmHg Diastolic Blood Pressure Non-Invasive 63 mmHg mmHg 03/22/2025 12:15 EDT Temperature (Route Not Specified) 35.6 DegC DegC Heart Rate Monitored 95 bpm bpm Respiratory Rate - Anes 12 br/min br/min Systolic Blood Pressure Non-Invasive 122 mmHg mmHg Diastolic Blood Pressure Non-Invasive 73 mmHg mmHg 03/22/2025 12:12 EDT Systolic Blood Pressure Non-Invasive 110 mmHg mmHg Diastolic Blood Pressure Non-Invasive 50 mmHg mmHg 03/22/2025 12:10 EDT Temperature (Route Not Specified) 35.63 DegC DegC Heart Rate Monitored 88 bpm bpm Respiratory Rate - Anes 12 br/min br/min 03/22/2025 12:09 EDT Systolic Blood Pressure Non-Invasive 111 mmHg mmHg Diastolic Blood Pressure Non-Invasive 51 mmHg mmHg 03/22/2025 12:06 EDT Systolic Blood Pressure Non-Invasive 111 mmHg mmHg Diastolic Blood Pressure Non-Invasive 53 mmHg mmHg 03/22/2025 12:05 EDT Temperature (Route Not Specified) 35.65 DegC DegC Heart Rate Monitored 95 bpm bpm Respiratory Rate - Anes 12 br/min br/min 03/22/2025 12:03 EDT Systolic Blood Pressure Non-Invasive 108 mmHg mmHg Diastolic Blood Pressure Non-Invasive 52 mmHg mmHg 03/22/2025 12:00 EDT Temperature (Route Not Specified) 35.69 DegC DegC Heart Rate Monitored 90 bpm bpm Respiratory Rate - Anes 12 br/min br/min Systolic Blood Pressure Non-Invasive 103 mmHg mmHg Diastolic Blood Pressure Non-Invasive 51 mmHg mmHg 03/22/2025 11:57 EDT Systolic Blood Pressure Non-Invasive 99 mmHg mmHg Diastolic Blood Pressure Non-Invasive 48 mmHg mmHg 03/22/2025 11:55 EDT Temperature (Route Not Specified) 35.75 DegC DegC Heart Rate Monitored 85 bpm bpm Respiratory Rate - Anes 12 br/min br/min 03/22/2025 11:54 EDT Systolic Blood Pressure Non-Invasive 88 mmHg mmHg Diastolic Blood Pressure Non-Invasive 42 mmHg mmHg 03/22/2025 11:51 EDT Systolic Blood Pressure Non-Invasive 103 mmHg mmHg Diastolic Blood Pressure Non-Invasive 42 mmHg mmHg 03/22/2025 11:50 EDT Temperature (Route Not Specified) 35.78 DegC DegC Heart Rate Monitored 76 bpm bpm Respiratory Rate - Anes 12 br/min br/min 03/22/2025 11:48 EDT Systolic Blood Pressure Non-Invasive 117 mmHg mmHg Diastolic Blood Pressure Non-Invasive 48 mmHg mmHg 03/22/2025 11:45 EDT Temperature (Route Not Specified) 35.85 DegC DegC Heart Rate Monitored 76 bpm bpm Respiratory Rate - Anes 12 br/min br/min Systolic Blood Pressure Non-Invasive 116 mmHg mmHg Diastolic Blood Pressure Non-Invasive 71 mmHg mmHg 03/22/2025 11:41 EDT Systolic Blood Pressure Non-Invasive 115 mmHg mmHg Diastolic Blood Pressure Non-Invasive 74 mmHg mmHg 03/22/2025 11:40 EDT Temperature (Route Not Specified) 35.86 DegC DegC Heart Rate Monitored 73 bpm bpm Respiratory Rate - Anes 12 br/min br/min 03/22/2025 11:38 EDT Systolic Blood Pressure Non-Invasive 109 mmHg mmHg Diastolic Blood Pressure Non-Invasive 79 mmHg mmHg 03/22/2025 11:35 EDT Temperature (Route Not Specified) 35.92 DegC DegC Heart Rate Monitored 69 bpm bpm Respiratory Rate - Anes 12 br/min br/min Systolic Blood Pressure Non-Invasive 124 mmHg mmHg Diastolic Blood Pressure Non-Invasive 74 mmHg mmHg 03/22/2025 11:32 EDT Systolic Blood Pressure Non-Invasive 124 mmHg mmHg Diastolic Blood Pressure Non-Invasive 72 mmHg mmHg 03/22/2025 11:30 EDT Temperature (Route Not Specified) 36.01 DegC DegC Heart Rate Monitored 77 bpm bpm Respiratory Rate - Anes 12 br/min br/min 03/22/2025 11:29 EDT Systolic Blood Pressure Non-Invasive 122 mmHg mmHg Diastolic Blood Pressure Non-Invasive 73 mmHg mmHg 03/22/2025 11:25 EDT Heart Rate Monitored 84 bpm bpm Respiratory Rate - Anes 12 br/min br/min Systolic Blood Pressure Non-Invasive 127 mmHg mmHg Diastolic Blood Pressure Non-Invasive 75 mmHg mmHg 03/22/2025 11:23 EDT Systolic Blood Pressure Non-Invasive 111 mmHg mmHg Diastolic Blood Pressure Non-Invasive 87 mmHg mmHg 03/22/2025 11:20 EDT Heart Rate Monitored 59 bpm bpm Respiratory Rate - Anes 12 br/min br/min Systolic Blood Pressure Non-Invasive 117 mmHg mmHg Diastolic Blood Pressure Non-Invasive 76 mmHg mmHg 03/22/2025 11:17 EDT Systolic Blood Pressure Non-Invasive 158 mmHg mmHg Diastolic Blood Pressure Non-Invasive 86 mmHg mmHg 03/22/2025 11:15 EDT Heart Rate Monitored 80 bpm bpm Respiratory Rate - Anes 23 br/min br/min 03/22/2025 11:14 EDT Systolic Blood Pressure Non-Invasive 115 mmHg mmHg Diastolic Blood Pressure Non-Invasive 85 mmHg mmHg 03/22/2025 11:11 EDT Systolic Blood Pressure Non-Invasive 131 mmHg mmHg Diastolic Blood Pressure Non-Invasive 73 mmHg mmHg 03/22/2025 11:10 EDT Heart Rate Monitored 84 bpm bpm Respiratory Rate - Anes 0 br/min br/min 03/22/2025 10:55 EDT Peripheral Pulse Rate 68 bpm Respiratory Rate 16 br/min Systolic Blood Pressure Non-Invasive 127 mmHg Diastolic Blood Pressure Non-Invasive 66 mmHg Mean Arterial Pressure (NBP) 84 mmHg 03/22/2025 9:44 EDT Peripheral Pulse Rate 73 bpm Respiratory Rate 16 br/min Systolic Blood Pressure Non-Invasive 113 mmHg Diastolic Blood Pressure Non-Invasive 61 mmHg Mean Arterial Pressure (NBP) 98 mmHg 03/22/2025 9:39 EDT Peripheral Pulse Rate 74 bpm Respiratory Rate 16 br/min Systolic Blood Pressure Non-Invasive 129 mmHg Diastolic Blood Pressure Non-Invasive 72 mmHg Mean Arterial Pressure (NBP) 86 mmHg 03/22/2025 9:22 EDT Peripheral Pulse Rate 73 bpm Respiratory Rate 16 br/min Systolic Blood Pressure Non-Invasive 118 mmHg Diastolic Blood Pressure Non-Invasive 68 mmHg Mean Arterial Pressure (NBP) 84 mmHg 03/22/2025 7:29 EDT Temperature Temporal Artery 36.1 DegC Peripheral Pulse Rate 74 bpm Respiratory Rate 14 br/min Systolic Blood Pressure Non-Invasive 112 mmHg Diastolic Blood Pressure Non-Invasive 68 mmHg Blood Pressure Method Automatic . Mental status: at preoperative baseline. Respiratory function: respirations are non-labored, Stable. Respiratory support: none. CV function: Stable. Cardiovascular support: none. Pain: Satisfactory. Nausea status: Satisfactory. Postoperative hydration status: within normal limits. Notes: Patient is sufficiently recovered from anesthesia to participate in the evaluation. No follow-up care needed. No complications post-anesthesia.. Digitally Signed by JONAS STEVENSON MD on 03/22/2025 11:32 PM [facility] 03-22-2025 Note Exam Date Time Procedure Performing Provider Status 03/22/25 3:54 PM US Guidance Breast in OR Auth (Verified) [id number] ORIGINAL Images acquired, not reported on this accession number. [id number] Note* Exam Date Time Procedure Performing Provider Status 03/22/25 3:43 PM MA Biopsy OR JOANA PROCTOR MD; [facility] (Verified) [id number] ORIGINAL FROM: [place] [id number] PROCEDURE FOR: AMAYA GARCIA [address] [place] [id number] Home: PID#: [id number] Exam#: [id number] : 1955 Age: 69 TO: JOSH Sampson.[facility] [address] [place] [address] EXAMINATION: SPECIMEN RADIOGRAPH 03/22/2025 1:44 pm COMPARISON: 07/29/2024 HISTORY: Surgical specimen radiograph. FINDINGS: A surgical specimen was imaged using uni-planar radiograph specimen imaging for the area of concern located in the left breast. This was described on prior exams. The specimen includes clip and the calcifications. IMPRESSION: Specimen radiograph as above. Please see surgical notes and pathology results for more detail. Findings were called to the operating room at the time of acquisition. BIRADS: RECALL: no message RECALL TYPE: unspecified LETTER SENT: No Letter Interpreted by: Joana Proctor MD Preliminary Report By: Joana Proctor MD Electronically signed By Joana Proctor MD Dictated Date: 03/22/2025 3:44:44 PM Prelim Date: 03/22/2025 3:45:40 PM Sign Date: 03/22/2025 3:45:40 PM Ordering Provider: JOSH JEFFERS Mental Health Nurse Practitioner: SANDEEP HALE [id number] Note* Exam Date Time Procedure Performing Provider Status 03/22/25 1:37 PM JUAN Herron OR ALEK MAY MD; Auth (V erified) [id number] ORIGINAL FROM: [address] [address] PROCEDURE FOR: AMAYA GARCIA [address] [place] [address] Home: PID#: [id number] Exam#: [id number] : 1955 Age: 69 TO: JOSH JEFFERS D.[facility] [address] [place] [address] EXAMINATION: SPECIMEN RADIOGRAPH 03/22/2025 6:19 am COMPARISON: 01/06/2025, 07/22/2024 HISTORY: Surgical specimen radiograph. FINDINGS: A surgical specimen was imaged using uni-planar radiograph specimen imaging for the area of concern located in the right breast. The specimen includes a biopsy marking clip and calcifications. IMPRESSION: Specimen radiograph as above. Please see surgical notes and pathology results for more detail. Findings were called to the operating room at the time of acquisition. BIRADS: RECALL: no message RECALL TYPE: unspecified LETTER SENT: No Letter Interpreted by: Alek May MD Preliminary Report By: Alek May MD Electronically signed By Alek May MD Dictated Date: 03/22/2025 1:45:56 PM Prelim Date: 03/22/2025 1:47:08 PM Sign Date: 03/22/2025 1:47:08 PM Ordering Provider: JOSH JEFFERS Mental Health Nurse Practitioner: SANDEEP HALE [id number] Note* Exam Date Time Procedure Performing Provider Status 03/22/25 1:26 PM US Anesthesia Block Auth (Verified) [id number] ORIGINAL Images acquired, not reported on this accession number. [id number] History and physical note History and Physical Update I have examined the patient; reviewed the History and Physical and there are no changes to the History and Physical unless noted below. Digitally Signed by JOSH JEFFERS DO on 03/22/2025 11:02 AM [facility]Bptqsgwz27-76-3253 Procedure note Patient: AMAYA GARCIA Age: 69 years Sex: Female : 1955 Associated Diagnoses: None Author: ZEYNEP DUMONT DO Visit Information Location: Regional Block Area. Reason: Postoperative Pain Management, Surgeon Request. Timing: Preoperative. Start Time (921) Stop Time (945) Time Out Performed: Refer to [place] Time Out Form, Patient was confirmed by two patient identifiers, The procedure and laterality were verified. Monitored During Procedure: BP, Oxygen Saturation, OTHER (Heart rate). Vitals Signs Assessed Immediately Prior to Regional Placement/Sedation: No Change in Plan. Level of Sedation: Responsive, Sedated. Oxygen Therapy: O2 applied prior to procedure. Procedure Procedure Type: Main Nerve Block Erector Spinae. Position Type: Sitting. Laterality Bilateral. Needle Type: Echogenic. Size: 21 G. Length: 4. Ultrasound Exam Dynamic Guidance Use Throughout. OTHER (Image saved to patient's EMR). Parathesia Location: None. Prep Type: Cholorprep, Skin Prep Allowed to Dry. Sterile Barrier Type: Hand Hygiene, Sterile Drape, gloves, mask, and hat. Patient Condition Tolerated Well/No Complications. Note (Aspiration after every 5mL injected with negative blood return, medication injected slowly without high pressure, vital signs unchanged with injection of local anesthetic). T4 LETY Bilaterally Review / Management Vital signs remain stable throughout procedure, see nursing documentation for vital signs Intravenous Medications: Administered: Intravenous Medications - See MAR. Nerve block Medications: See MAR for medications administered for nerve block Professional Services Provider: Anesthesiologist. Digitally Signed by ZEYNEP DUMONT DO on 03/22/2025 09:48 AM [id number] Anesthesiology Consult note Patient: AMAYA GARCIA Age: 69 years Sex: Female : 1955 Associated Diagnoses: None Author: JOANA RUBIO MD Preoperative Information Time of last food or liquid consumption: 03/22/2025 00:00:00 Anesthesia history Patient's history: negative. Family's history: negative. Health Status Allergies: Allergic Reactions (Selected) NKA, Allergies (1) ActiveSeverityReaction NKANone Documented Current medications: (Selected) Inpatient Medications Ordered Kefzol: 2 gram(s), 20 mL, 240 mL/hr, IV Push (INT), PREOP pharm LR 1,000 mL: 20 mL/hr, Intravenous, Stop: 03/22/25 22:59:00 EDT LR 1,000 mL: 20 mL/hr, Intravenous, Stop: 03/22/25 22:59:00 EDT ROPivacaine 0.5% injectable solution: 110 mg, 22 mL, Nerve Block, PREOP pharm dexAMETHasone: 4 mg, 1 mL, Nerve Block, PREOP pharm lidocaine 1% preservative-free injectable solution: 2.5 mg, 0.25 mL, Intradermal, prep pharm midazolam: 2 mg, 2 mL, IV Push, PREOP pharm Documented Medications Documented Fesoterodine 4 mg oral tablet, extended release: 4 mg, 1 tab(s), Oral, qAM, 0 Refill(s) Vitamin D3 25 mcg (1000 intl units) oral capsule: 25 mcg, 1 cap(s), Oral, qAM, 0 Refill(s) escitalopram 10 mg oral tablet: 10 mg, 1 tab(s), Oral, qHS, 30 tab(s), 0 Refill(s) ezetimibe 10 mg oral tablet: 10 mg, 1 tab(s), Oral, qHS, 30 tab(s), 0 Refill(s) rosuvastatin 40 mg oral tablet: 40 mg, 1 tab(s), Oral, qHS, 30 tab(s), 0 Refill(s) traZODone 150 mg oral tablet: 150 mg, 1 tab(s), Oral, qHS, 90 tab(s), 0 Refill(s) valACYclovir 500 mg oral tablet: 500 mg, 1 tab(s), Oral, qHS, 0 Refill(s), Medications (7) Active Scheduled: (5) ceFAZolin syringe 2 gram(s) 20 mL, IV Push (INT), PREOP pharm dexamethasone 4 mg/1 mL solution 4 mg 1 mL, Nerve Block, PREOP pharm lidocaine 1% (MPF) 2 mL vial pf 2.5 mg 0.25 mL, Intradermal, prep pharm midazolam 1 mg/mL (2mL) SDV 2 mg 2 mL, IV Push, PREOP pharm ropivacaine 0.5% Solution (30 mL) vial 110 mg 22 mL, Nerve Block, PREOP pharm Continuous: (2) Lactated Ringers 1,000 mL 1,000 mL, Intravenous, 20 mL/hr Lactated Ringers 1,000 mL 1,000 mL, Intravenous, 20 mL/hr PRN: (0) Problem list: Medical Abnormal tissue in uterus / SNOMED CT 083036056 / Confirmed Family history of breast cancer / SNOMED CT 5846312942 / Confirmed Liver cyst / SNOMED CT 671005799 / Confirmed Bilateral breast cancer / SNOMED CT 294727157 / Confirmed Spigelian hernia / SNOMED CT 490023945 / Confirmed, Active Problems (24) Abnormal tissue in uterus Anxiety Arthritis Benign colon polyp Bilateral breast cancer BMI 37.0-37.9, adult Cholelithiasis CPAP (continuous positive airway pressure) dependence Depression Diverticulosis Ex-cigarette smoker Family history of breast cancer High cholesterol History of breast cancer History of COVID-19 History of radiation exposure Hx of cold sores Irritable bowel syndrome Liver cyst Overactive bladder Prediabetes Sleep apnea Spigelian hernia Vitamin D deficiency Histories Past Medical History: No active or resolved past medical history items have been selected or recorded. Family History: Asthma Mother () Breast cancer Maternal Aunt Maternal Grandmother Rheumatoid arthritis Mother () Hypertension Father () Heart disease Father () Stroke Mother () Father () Heart attack Mother () Hypercholesterolemia Father () Kidney disease Brother Alzheimer disease Mother () Diabetes Father () Maternal Aunt Procedure history: Biopsy of breast (075471795) in 2017 at 60 Years. Lumpectomy of left breast (9167307027) in 2017 at 60 Years. section (67641037). Tonsillectomy (115999644). Surgery (203766266). Comments: 03/27/2021 7:46 MAUREENT - Jovanna Garcia LPN hand, shoulder Endometrial ablation (242841375). Carpal tunnel decompression (6226997494). Comments: 03/11/2025 8:45 MAUREENT - DANIEL Gonzalez TRIGGER FINGER Arthroscopy of shoulder (437545183). Comments: 03/11/2025 8:46 EDT - DANIEL Gonzalez BOTH Colonoscopy (033950076). Social History: Social & Psychosocial Habits Alcohol 03/22/2025 Use: Current Frequency: 1-2 times per week Substance Abuse 03/22/2025 Use: Never Tobacco 03/22/2025 Tobacco Use: Former smoker, quit more Started at age: 20 Years Stopped at age: 57 Years Home/Environment 03/22/2025 Living situation: Home/Independent Safe place to go: Yes Domestic Concerns None Lives In Single level home Current Home Treatments CPAP Special Services and Community Resources None Spouse Name LUKE Marital Status of Patient if Patient Independent Adult: Nutrition/Health 03/22/2025 Type of diet: Regular Appetite Excellent Eating Difficulties None Caffeine intake amount: hardly any Sexual 03/22/2025 Sexually active: Yes Physical Examination Vital Signs 03/22/2025 7:29 EDT Temperature Temporal Artery 36.1 DegC Peripheral Pulse Rate 74 bpm Respiratory Rate 14 br/min Systolic Blood Pressure Non-Invasive 112 mmHg Diastolic Blood Pressure Non-Invasive 68 mmHg Blood Pressure Method Automatic Vital Signs (last 24 hrs) Last Charted Temp Rtuqkfym50.1 DegC (MAR 22 07:29) PQU965 mmHg (MAR 22 07:29) DBP68 mmHg (MAR 22 07:29) Measurements from flowsheet : Measurements 03/22/2025 7:29 EDT Height 154.9 cm Height in inches 61 inch(es) Admission Weight 87 kg Weight Lbs 191.4 lb [place] Body Weight 47.76 kg Admission Body Mass Index 36.26 m2 Pain assessment: Pain Assessment 03/22/2025 7:29 EDT Primary Pain Intensity 0 Pain Scale Type 0-10 Pain scale . General: Alert and oriented, No acute distress. Airway: Mallampati classification: II (soft palate, fauces, uvula visible). Dentition Evaluation: Own teeth. Respiratory: Lungs are clear to auscultation. Cardiovascular: Normal rate. Heart Sounds: Normal. Review / Management Results review: No qualifying data available , Lab results 03/22/2025 8:13 EDT Procedure Note [place] Node Injection - Bilateral Breasts 03/22/2025 8:12 EDT Anesthesiology Consultation Acute Pain Consult- Surgery 03/22/2025 7:36 EDT SN - Preop - CTm Pt Ready for OR/Proced 03/22/2025 7:36 03/22/2025 7:36 EDT Forearm Right 03/22/2025 20 gauge Peripheral IV Activity: Insert new site Peripheral IV Dressing Condition: Clean, Dry, Intact Peripheral IV Dressing Activity: Applied, Transparent dressing Peripheral IV Line Status/Patency: 10ml normal saline flush Peripheral IV Site Condition: No complications Peripheral IV Equipment: PRN Adaptor 03/22/2025 7:29 EDT Blood Glucose, Capillary 98 mg/dL Height 154.9 cm Height in inches 61 inch(es) Admission Weight 87 kg Weight Lbs 191.4 lb [place] Body Weight 47.76 kg Admission Body Mass Index 36.26 m2 Temperature Temporal Artery 36.1 DegC Peripheral Pulse Rate 74 bpm Respiratory Rate 14 br/min Systolic Blood Pressure Non-Invasive 112 mmHg Diastolic Blood Pressure Non-Invasive 68 mmHg Blood Pressure Method Automatic Primary Pain Intensity 0 Pain Scale Type 0-10 Pain scale Heart Sounds ICU S1S2 Heart Rhythm Regular Respirations Unlabored Respiratory Pattern Regular Breath Sounds Auscultated Anterior only All Lobes Breath Sounds Clear Oxygen Therapy Room air Oxygen Saturation 97 % Abdomen Description Non-distended Abdomen Palpation Non-Tender Bowel Sounds All Quadrants Present Skin Description [place] Skin Temperature Warm Skin Integrity Intact All Extremity Description [place] Temperature All Extremities Warm Neurological Symptoms Patient denies Characteristics of Speech Clear Level of Consciousness Alert Strength All Extremities Strong Affect/Behavior Appropriate, Calm, Cooperative Orientation Oriented x 4 Activity Status ADL Resting Standard Safety ID band on, Call device within reach, Bed in low position, Wheels locked, Upper/Half-Length side-rails up, Phone within reach, personal items within reach, Visitor at bedside, Safety level maintained, Non-Slip footwear, Precautions maintained 03/22/2025 7:19 EDT Violence Risk Confused No Violence Risk Irritable No Violence Risk Boisterous No Violence Risk Verbal Threats No Violence Risk Physical Threats No Violence Risk Attacking Objects No Violence Risk Predictor Score 0 Violence Risk Intervention None Violence Risk Current Interventions None Allergies No Consent Form Signed Yes Patient Dressed In Hospital gown CHG Preoperative Wash/Wipe Night before procedure, Day of procedure, Site specific wipe Preop Nasal Swab Povidone-Iodine CHG Skin Prep Completed for Eligible Surgery History & Physical Update On Chart No History & Physical On Chart Yes Obstructive Sleep Apnea Assess Completed Yes MRSA/MSSA Protocol Yes Belongings At Bedside Cell phone, Supervisor [employer], CPAP, Glasses, Pants, Shirt, Shoes, Socks, Undergarments Personal Home Medications Received Received from patient Patient ID Band on and Verified Yes Implants Verified Yes Pacemaker/AICD Verified Yes Site Verified by Patient/Family Yes Last Fluid Intake 03/22/2025 22:00 Last Food Intake 03/21/2025 18:00 03/22/2025 7:14 EDT SN - Preop - CTm Pt in SDS Room 03/22/2025 7:14 03/22/2025 7:14 EDT Designated Person #1 We May Share PHI LUKE [phone] Designated Person #1 Relationship Spouse Designated Person #2 We May Share PHI ANJALI TAYLOR [phone] Designated Person #2 Relationship Daughter Privacy Restrictions Requested None Status No, per patient Sensory Deficits None Diagnosed With Sleep Apnea Yes Advanced Directives Yes Advance Directive Type [place] Durable Power of [employer] Lab[employer] [place] Declaration (Living Will) Advance Directive Location Unable to obtain copy Infectious Disease Symptoms Patient states no symptoms Infectious Disease Recent Exposure No Alcohol and Drug Use No Employee of Institutional Living No Health Care Employee No History of Exposure to TB No History of Positive Chest X-Ray for TB No History of Positive TB Skin Test No Homeless No Known Immunosuppression No Recent Immigrant No Resident of Institutional Living No Bloody Sputum No Fatigue No Fever No Loss of Appetite No Night Sweats No Persistent Cough > 3 Weeks No Weight Loss No Surgery Scheduled On Date/Time 03/22/2025 9:45 Patient Aware Date/Time Of Surgery Yes Arrival Time the Day of Surgery 03/22/2025 6:45 Patient Aware of Arrival Time Yes Pre-Op Patient Education NPO after midnight, No smoking after midnight, No makeup, No jewelry, Responsible Democrat, Aware of surgery location, 2 bottles CHG wash with instructions given, Instructed to take ordered medications, Instructed to bring home medications, VTE prevention handout given, SSI prevention handout given, MRSA protocol education provided, Anesthesia block education provided, Clearliquids until arrival SN - Preprocedure Comments Spoke with patient, Verbalizes/Nonverbally indicates understanding Individuals Taught Patient, Spouse, Daughter Learning Readiness Willing to learn Barriers to Learning None evident Teaching Method Demonstration, Explanation, Printed materials, Teach-back, Video/Educational TV Preferred Spoken Language Danish Preferred Written Language Danish Family/Caregiver Prefer Spoken Language Danish Family/Caregiver Prefer Written Language Danish Teaching Evaluation Verbalizes/Nonverbally indicates understanding Surgical Site Infection Prevention SSI FAQ provided, Pre-op nasal swab, Skin cleansing pre-operative Infection Prevention Teaching Evaluation Verbalizes/Nonverbally indicates understanding Pain Medication Education Pain scale Pain Teaching Evaluation Verbalizes/Nonverbally indicates understanding Pre Procedure/Surgery Education Appropriate expectations, Date/Time of procedure/surgery, Hospital gown requirement worn to OR, Responsible drive away driver for discharge Procedure/Surgical Teaching Evaluation Verbalizes/Nonverbally indicates understanding Safety Measures Education Fall prevention, Call light use, Non-slip footwear use Safety Teaching Evaluation Verbalizes/Nonverbally indicates understanding Safety Brochure Information Reviewed Unable to complete Adrian Young Video Viewed No Patient's Current Physicians Patient's Current Physicians History of Malignant Hyperthermia No Discharge To, Anticipated Home with family care Prev Test Positive/Diagnosis w/COVID-19 No Current Quarantine/Isolated any Illness No Any Contact with Sick Animals/Birds No Traveled Anywhere in Last 30 Days No Lost Weight Unintentionally Recently No Eat Poorly Due to Decreased Appetite No Total MST Score 0 No Personal Devices, Patient Valuables Glasses Anesthesia/Transfusions Prior anesthesia Admission Note-Nursing Same Day Patient History 03/21/2025 14:06 EDT Surgery Scheduled On Date/Time 03/22/2025 9:45 Patient Aware Date/Time Of Surgery Yes Arrival Time the Day of Surgery 03/22/2025 6:45 Patient Aware of Arrival Time Yes Pre-Op Patient Education NPO after midnight, No smoking after midnight, No makeup, No jewelry, Responsible Democrat, Aware of surgery location, 2 bottles CHG wash with instructions given, Instructed to take ordered medications, Instructed to bring home medications, VTE prevention handout given, SSI prevention handout given, MRSA protocol education provided, Anesthesia block education provided, Clearliquids until arrival (Modified) Admission Note-Nursing Patient History PreTest (Modified) . Assessment and Plan [place] [employer] Anesthesiologists (ASA) physical status classification: Class III. Anesthetic Preoperative Plan Anesthetic technique: General. Maintenance airway: Oral endotracheal tube. Risks discussed: nausea, vomiting, headache, sore throat, dental injury, hypotension, allergic reaction, serious complications. Informed consent: signed by patient. Notes: ASA III: Her past medical history includes Anxiety, arthritis, benign colon polyp, breast cancer, cholelithiasis, depression, diverticulosis, hypercholesterolemia, COVID-19 (2023), IBS, liver cyst, overactive bladder, prediabetes, sleep apnea, spigelian hernia, vitamin D deficiency. , Amaya was seen and examined by me, Joana Rubio MD. The medical record was reviewed. Consultations, lab results , radiographic results and cardiovascular studies examined and noted. Anesthesia was explained in detail and questions were invited and answered. We will proceed as outlined in the plan above.. Digitally Signed by JOANA RUBIO MD on 03/22/2025 08:39 AM Digitally Signed by JOANA RUBIO MD on 03/22/2025 10:15 AM [id number] Note* Exam Date Time Procedure Performing Provider Status 03/22/25 8:17 AM NM Injection [place] Node CLINT MACK MD; Auth (Verified) [id number] ORIGINAL EXAMINATION: SENTINEL NODE 03/22/2025 8:17 am TECHNIQUE: 587 and 627 microcuries of Tc99m Lymphoseek injection in the leftbreast at 8:05 a.m. by physician engineer first assistant ABEBA VARGHESE was provided to DR. JOSH JEFFERS for sentinel lymph node localization. Patient was then taken to the OR for probe guided lymph node localization. HISTORY: Reason for Exam: Left breast ca IMPRESSION: No images were acquired. Lymph nodes localized with probe in the OR. Interpreted by: Jose Roberto Mack MD Preliminary Report By: Jose Roberto Mack MD Electronically signed By Jose Roberto Mack MD Dictated Date: 03/22/2025 9:30:07 AM Prelim Date: 03/22/2025 9:30:55 AM Sign Date: 03/22/2025 9:30:55 AM Ordering Provider: JOSH JEFFERS [id number] Note* Exam Date Time Procedure Performing Provider Status 03/22/25 8:16 AM NM Injection [place] Node CLINT MACK MD; Auth (Verified) [id number] ORIGINAL EXAMINATION: SENTINEL NODE 03/22/2025 8:16 am TECHNIQUE: 551 and 574 microcuries of Tc99m Lymphoseek injection in the rightbreast at 8:05 a.m. by physician engineer first assistant ABEBA VARGHESE was provided to DR. JOSH JEFFERS for sentinel lymph node localization. Patient was then taken to the OR for probe guided lymph node localization. HISTORY: Reason for Exam: breast cancer IMPRESSION: No images were acquired. Lymph nodes localized with probe in the OR. Interpreted by: Jose Roberto Mack MD Preliminary Report By: Jose Roberto Mack MD Electronically signed By Jose Roberto Mack MD Dictated Date: 03/22/2025 9:29:10 AM Prelim Date: 03/22/2025 9:30:01 AM Sign Date: 03/22/2025 9:30:01 AM Ordering Provider: JOSH JEFFERS [facility]Rlmmpukx15-08-0705 Procedure note IR Brief Post Procedure Note Preprocedure Dx: breast cancer Post Procedure Dx: Same Procedure: Lymphoseek injection - RIGHT and LEFT breast Anesthesia: Freeze spray EBL: None Complications: None Status: Unchanged Findings: 1. Successful sentinel node injection x 2 in the upper and outer maggie-areolar distribution of the RIGHT breast at 0804. 2. Successful sentinel node injection x 2 in the upper and outer maggie-areolar distribution of the LEFT breast at 0806. Plan: 1. Sent to Same Day Surgery Full report to follow. Abeba Varghese PA-C Interventional Radiology Pager: [phone] IR dept: [email or web address] Available on Ideabove Digitally Signed by ABEBA VARGHESE PA-C on 03/22/2025 08:14 AM [id number] Evaluation note* Diagnosis Onset Date Resolution Status Admit Date Diabetes chronic March 10, 2025 9:26am High cholesterol chronic March 9:26am Obesity chronic March 10, 2025 9:26am Vitamin D deficiency chronic March 10, 2025 9:26am Mixed incontinence acute May 13, 2025 10:14am Nocturia acute May 13 10:14am Overactive bladder acute May 13, 2025 10:14am Post-menopausal atrophic vaginitis acute May 13, 2025 10:14am Obesity chronic May 16, 025 10:13am DOROTEO (obstructive sleep apnea) chroni c May 16, 2025 10:13am 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 May 302024 9:57am Breast cancer, left chronic Augus t 2024 9:57am 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 May 9:57am Vaginal bleeding acute May 072024 10:00am Ankle swelling chronic May 10:00am 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 May 30, 2025 10:00am 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 June 23, 2025 9:55am Breast cancer, left chronic Septe mber 2024 9:55am 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 June 23, 2025 9:55am Osteopenia after menopause chronic June 23, 2025 9:55am [facility] Work Phone: 1(368) 940-129005-08-2025 Evaluation note* Diagnosis Onset Date Resolution Status Admit Date DCIS (ductal carcinoma in situ) acut e February 10, 2025 9:50am 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 February 102024 9:50am Lower back pain acute February 10, 2025 9:50am Breast cancer, left chronic February 102024 9:50am 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 February 10, 2025 9: 50am Diabetes chronic March 10, 2025 9:26am High cholesterol chronic March 9:26am Obesity chronic March 10, 2025 9:26am Vitamin D deficiency chronic March 10, 2025 9:26am Mixed incontinence acute May 13, 2025 10:14am Nocturia acute May 13 10:14am Overactive bladder acute May 13, 2025 10:14am Post-menopausal atrophic vaginitis acute May 13, 2025 10:14am Obesity chronic May 16, 10:13am DOROTEO (obstructive sleep apnea) chroni c May 16, 2025 10:13am DCIS (ductal carcinoma in situ) acut e May 30, 2025 9:57am 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 2024 9:57am Breast cancer, left chronic 2024 9:57am 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 May 30 9:57am Vaginal bleeding acute May 072024 10:00am Ankle swelling chronic May 10:00am 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 May 10:00am [facility] Work Phone: 1(288) 197-237205-07-2025 Evaluation + Plan note Future Scheduled Tests Radiology* US Axilla Breast Left 02/09/25 * NM Injection [place] Node 02/09/25 [facility] 05-06-2025 Nuclear medicine Diagnostic study note [facility] Imaging Services [address] [place], [place] [address] Bone Scan Whole Body MR#: [id number] Acct: [id number] Name: AMAAY GARCIA Rep #: [id number] : 1955 F 69 From: Jorge Yu MD PCP: LANA Ramirez Status: REG CLI Study:Bone Scan Whole Body Date of Exam: 02/07/25 Exam# [id number] Ordering Dr: Juma Chacon MD PROCEDURE: BONE SCAN WHOLE BODY 02/07/2025 REASON FOR EXAM: BREAST CA TECHNIQUE: Whole-body bone scan. RADIOPHARMACEUTICAL: 24.6 mCi Technetium-99m MDP IV. COMPARISON: CORRELATION WITH EXISTING RELEVANT IMAGING STUDIES (i.e. x-ray, MRI, CT, etc.): No existing relevant imaging study available , patient did not have a previous relevant imaging study. FINDINGS: Mild degenerative changes are seen of the spine and knees. Wdwxn-svglbdj-nrhe-left shoulder area degenerative changes are noted. No findings are seen to suggest the presence of osseous metastatic disease. NM/Bone Scan Whole Body IMPRESSION: No scintigraphic evidence of osseous metastatic disease. Reading Location: [facility] CC: LANA Mckay; Dr. Brando Chacon MD ~ Claims Vice President: Signed 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 January 27, 2025 9:17am Vaginal bleeding acute January 272024 11:00am Ankle swelling chronic January 11:00am 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 January 11:00am DCIS (ductal carcinoma in situ) acut e February 10, 2025 9:50am 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 February 102024 9:50am Lower back pain acute February 10, 2025 9:50am Breast cancer, left chronic February 102024 9:50am 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 February 10, 2025 9: 50am Diabetes chronic March 10, 2025 9:26am High cholesterol chronic March 9:26am Obesity chronic March 10, 2025 9:26am Vitamin D deficiency chronic March 10, 2025 9:26am Mixed incontinence acute May 13, 2025 10:14am Nocturia acute May 13 10:14am Overactive bladder acute May 13, 2025 10:14am Post-menopausal atrophic vaginitis acute May 13, 2025 10:14am [facility] Work Phone: 1(622) 274-587804-16-2025 Evaluation note* Diagnosis Onset Date Resolution Status Admit Date Abnormal mammogram of right breast acute January 19, 2025 2:55pm DCIS (ductal carcinoma in situ) acut e January 19, 2025 2:55pm DCIS (ductal carcinoma in situ) acut e January 27, 2025 9:17am 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 January 27, 2025 9:17am Lower back pain acute January 9:17am Breast cancer, left chronic January 27, 2025 9:17am 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 January 27, 2025 9:17am Vaginal bleeding acute January 272024 11:00am Ankle swelling chronic January 11:00am 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 January 11:00am DCIS (ductal carcinoma in situ) acut e February 10, 2025 9:50am 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 February 102024 9:50am Lower back pain acute February 10, 2025 9:50am Breast cancer, left chronic February 102024 9:50am 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 February 10, 2025 9: 50am Diabetes chronic March 10, 2025 9:26am High cholesterol chronic March 9:26am Obesity chronic March 10, 2025 9:26am Vitamin D deficiency chronic March 10, 2025 9:26am Mixed incontinence acute May 13, 2025 10:14am Nocturia acute May 13 10:14am Overactive bladder acute May 13, 2025 10:14am Post-menopausal atrophic vaginitis acute May 13, 2025 10:14am Obesity chronic May 16, 025 10:13am DOROTEO (obstructive sleep apnea) chroni c May 16, 2025 10:13am [facility] Work Phone: 1(845) 314-315204-03-2025 Procedure note [facility] Medical Records Department [address] [place] [address] Operative Report 01/06/25916 MR#: [id number] Acct: [id number] Name: AMAYA GARCIA JASMYNE Rep #:[id number] : 1955 69 From: Darrel Lacy MD PCP: LANA Ramirez Status:REG CLI Location: BIR Problems Associated Problem List Diagnoses (1) Abnormal mammogram of right breast: Procedures Integumentary [id number]: 07550 Bx [facility] Operative Report (Standard) Operative Information Date of Procedure: 01/06/25 Pre-Operative Diagnosis: Abnormal right breast mammogram/microcalcifications Post-Operative Diagnosis: Same Surgery/Procedure Performed: Right breast stereotactic biopsy account executive trainee: No Type of Anesthesia: Local Procedure Start Time: 08:30 Procedure Stop Time: 09:00 Select all DRAINS/GRAFTS/IMPLANTS that apply: Implanted device Implanted device details: Post procedure marking clip Special Medications: None Estimated Blood Loss: Minimal Specimen collected: Yes Description of specimen(s) removed: Right breast tissue containing microcalcifications Description of surgery: The patient is a 69-year-old female recently seen through the office with bilateral breast lesions seen on mammogram. The left breast lesion was biopsiedin the office under ultrasound guidance. Pathology is still pending. The rightbreast microcalcifications required a stereotactic biopsy for which she is presenting for today. We discussed the details of the planned procedure and shewishes to proceed. After obtaining informed consent, the patient was placed prone on the mammotome table. The right breast was suspended through the aperture and the table. Compression views were then obtained until the area of microcalcifications were identified. At this point 2 additional views were then performed in order to target upon the region of calcifications. In this vicinity there were microcalcifications as well as macrocalcifications. We tried to target upon thesmaller microcalcifications. Once the coordinates were obtained, the skin of the breast was then prepped and draped in the usual sterile manner. Local anesthetic was then injected into the area. A #11 blade was then used to make asmall skin incision. Through this incision, the stereotactic biopsy probe was inserted to the correct depth. 2 views were then obtained to confirm appropriate positioning of the biopsy device. This was confirmed. Next circumferential suction biopsies were then obtained with good tissue sampling. Patient tolerated this portion of the procedure well. The retrieved tissue was then radiographed and confirmed presence of numerous microcalcifications. At this point a marking clip was then deployed. A post clipplacement image was then obtained and confirmed position of the clip. The patient was then taken out of compression. Steri-Strip dressing was applied. She tolerated the procedure well. Surgical Findings: Micro calcifications of the right breast successfully removed. Complications Complications: Yes Complication Details: None Admit VTE Documentation VTE Present on Admission: No VTE Mechan Device Prophylaxis: None VTE Pharm Prophylaxis ordered?: No Reason prophylaxis not ordered: Treatment Not Indicated 01/06/25 1000 Cosigner Signature (if applicable): CC: LANA Mckay; Dr. Darrel Lacy MD~ Signed [facility]03-13-2025 Radiology Diagnostic study note [facility] Imaging Services [address] [place] [address] Breast Limited Unilateral MR#: [id number] Acct: [id number] Name: AMAYA GARCIA Rep #: [id number] : 1955 F 68 From: Ammon Hauser MD PCP: LANA Ramirez Status: REG CLI Study:Breast Limited Unilateral Date of Exam: 12/16/24 Exam# [id number] Ordering Dr: Daysi Torres NP PROCEDURE: BREAST LIMITED UNILATERAL REASON FOR EXAM: LEFT BREAST MASS TECHNIQUE: Targeted ultrasound of the left breast. COMPARISON: Comparison is made with prior mammogram done earlier in the day. FINDINGS: LEFT: Left breast ultrasound was targeted to the lateral aspect of the left breast.. The palpable lump corresponds to a 4 mm x 2 mm x 4 mm hypoechoic irregular nodule at the 3 o'clock position of the breast at 8 cm from the nipple. Biopsy recommended. US/Breast Limited Unilateral IMPRESSION: BI-RADS 4: SUSPICIOUS ABNORMALITY. Follow-up code: Biopsy. Reading Location: [id number]-T CC: LANA Mckay; LANA Kim ~ Claims Vice President: Signed 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 December 09, 2024 11:14am Abnormal mammogram of right breast acute December 22, 2024 8:02am Left breast mass acute December 222024 8:02am Abnormal mammogram of right breast acute January 06, 2025 8:03am Abnormal mammogram of right breast acute January 19, 2025 2:55pm DCIS (ductal carcinoma in situ) acute January 19, 2025 2:55pm DCIS (ductal carcinoma in situ) acute January 27, 2025 9:17am 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 January 27, 2025 9:17am Lower back pain acute January 9:17am Breast cancer, left chronic January 27, 2025 9:17am 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 December 09, 2024 11:14am Abnormal mammogram of right breast acute December 22, 2024 8:02am Left breast mass acute December 222024 8:02am Abnormal mammogram of right breast acute January 06, 2025 8:03am Abnormal mammogram of right breast acute January 19, 2025 2:55pm DCIS (ductal carcinoma in situ) acut e January 19, 2025 2:55pm DCIS (ductal carcinoma in situ) acut e January 27, 2025 9:17am 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 January 27, 2025 9:17am Lower back pain acute January 9:17am Breast cancer, left chronic January 27, 2025 9:17am 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 January 27, 2025 9:17am Vaginal bleeding acute January 272024 11:00am Ankle swelling chronic January 11:00am 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 Work Phone: [phone]) 141-867405-07-2024 Note If ancillary studies were utilized, the following Laboratory Developed Test (LDT) disclaimer will apply: Under CLIA requirements, [facility] is qualified to perform high complexity testing. For all ancillary stains, positive and negative controls stain appropriately. Performance characteristics of immunohistochemical and chromogenic in-situ hybridization tests have been deter mined by [facility]. These tests are used for clinical purposes, They should not be regarded as investigational or for research. [facility] 05-07-2024 Note If ancillary studies were utilized, the following Laboratory Developed Test (LDT) disclaimer will apply: Under CLIA requirements, [facility] is qualified to perform high complexity testing. For all ancillary stains, positive and negative controls stain appropriately. Performance characteristics of immunohistochemical and chromogenic in-situ hybridization tests have been deter mined by [facility]. These tests are used for clinical purposes, They should not be regarded as investigational or for research. [facility] 05-06-2024 Note If ancillary studies were utilized, the following Laboratory Developed Test (LDT) disclaimer will apply: Under CLIA requirements, [facility] is qualified to perform high complexity testing. For all ancillary stains, positive and negative controls stain appropriately. Performance characteristics of immunohistochemical and chromogenic in-situ hybridization tests have been deter mined by [facility]. These tests are used for clinical purposes, They should not be regarded as investigational or for research. [facility] 05-06-2024 Note If ancillary studies were utilized, the following Laboratory Developed Test (LDT) disclaimer will apply: Under CLIA requirements, [facility] is qualified to perform high complexity testing. For all ancillary stains, positive and negative controls stain appropriately. Performance characteristics of immunohistochemical and chromogenic in-situ hybridization tests have been deter mined by [facility]. These tests are used for clinical purposes, They should not be regarded as investigational or for research. [facility] 05-06-2024 Note If ancillary studies were utilized, the following Laboratory Developed Test (LDT) disclaimer will apply: Under CLIA requirements, [facility] is qualified to perform high complexity testing. For all ancillary stains, positive and negative controls stain appropriately. Performance characteristics of immunohistochemical and chromogenic in-situ hybridization tests have been deter mined by [facility]. These tests are used for clinical purposes, They should not be regarded as investigational or for research. [facility] 05-06-2024 Note If ancillary studies were utilized, the following Laboratory Developed Test (LDT) disclaimer will apply: Under CLIA requirements, [facility] is qualified to perform high complexity testing. For all ancillary stains, positive and negative controls stain appropriately. Performance characteristics of immunohistochemical and chromogenic in-situ hybridization tests have been deter mined by [facility]. These tests are used for clinical purposes, They should not be regarded as investigational or for research. [facility] 05-06-2024 Note If ancillary studies were utilized, the following Laboratory Developed Test (LDT) disclaimer will apply: Under CLIA requirements, [facility] is qualified to perform high complexity testing. For all ancillary stains, positive and negative controls stain appropriately. Performance characteristics of immunohistochemical and chromogenic in-situ hybridization tests have been deter mined by [facility]. These tests are used for clinical purposes, They should not be regarded as investigational or for research. [facility] Discharge summary Author Chelsea Gilman [facility] May 01, 2023 8:30am Note Date/Time May 01, 2023 8:29 am [facility] Medical Records Department [address] [place] [address] Instructions for Home/Discharge Instructions 05/01/23 0828 MR#: [id number] Acct: [id number] Name: AMAYA GARCIA Rep #:[id number] : 1955 67 From: Chelsea Sampson PCP: Dr. Freida Napier MD Status:REG [facility] Discharge Instructions Diet Discharge Diet: No restrictions Activity Discharge Activity: Return to Normal Activity Dressing / Incision Call your doctor if you observe: Fever of 101 or Higher, Inability to urinate and Inability to have a bowel movement Follow Up Care Please Follow Up With: Chelsea Gilman MD When: the office will call her to set up appt for next week Test Results: Test results from this visit will be discussed in further detail at your follow- up appointment, if applicable. Discharge Plan Admission Attending Provider: Chelsea Gilman Primary Care Provider: Freida Napier Discharge Orders/Prescriptions Prescriptions: New oxycodone-acetaminophen [Percocet] 5-325 mg tablet 1 tab PO Q8H PRN (Reason: pain) 1 Days Qty: 3 0RF Continued cyclobenzaprine 5 mg tablet 5 mg PO DAILY PRN (Reason: muscle spasm) Patient Comments: TAKE 1 TABLET BY MOUTH DAILY NEEDED ezetimibe [Zetia] 10 mg tablet 10 mg PO DAILY Qty: 90 1RF trazodone 150 MG tablet 150 mg PO QHS escitalopram oxalate 10 MG tablet 10 mg PO DAILY rosuvastatin 40 mg tablet 40 mg PO DAILY celecoxib 200 MG capsule 200 mg PO DAILY valacyclovir 500 MG tablet 500 mg PO DAILY cholecalciferol (vitamin D3) 1,000 UNIT tablet 1,000 unit PO DAILY Mounjaro 5 mg/0.5 mL pen injector 5 mg subcut QWEEK Qty: 2 3RF Other Ambulatory Orders: 12 Lead EKG (Routine) Timeframe: [id number] Facility: [facility] - Location: Cardiovascular Services Ordered By: Dr. Sg South Referrals / Follow Up: Freida Napier MD [Primary Care Provider] - Disposition Disposition (needs filled in before D/C Order can be placed): Home, Self Care 05/01/23 0830<Electronically signed by Chelsea Gilman MD>Chelsea Gilman MD CC: Dr. Freida Napier MD ~ Signed [facility] Work Phone: Evaluation + Plan note No data available for this section [facility] Evaluation + Plan note Future Appointments Appointment Date:03/22/2025 08:00:00 AM Scheduled Provider: Location:XRAY Appointment Type:NM Injection [place] [facility] Appointment Date:03/22/2025 08:00:00 AM Scheduled Provider: Location:XRAY Appointment Type:NM Injection [place] [facility] Appointment Date:03/30/2025 01:40:00 PM Scheduled Provider:JOSH JEFFERS DO Location:[facility] Appointment Type:BS OV Post Op Future Scheduled Tests Radiology* NM Injection [place] [facility] 03/22/25 * NM Injection [place] [facility] 03/22/25 [facility] Evaluation + Plan note Future Appointments Appointment Date:03/30/2025 01:40:00 PM Scheduled Provider:JOSH JEFFERS DO Location:[facility] Appointment Type:BS OV Post Op [facility] evaluation + Plan note Future Appointments Appointment Date:09/23/2025 09:40:00 AM Scheduled Provider:JOSH JEFFERS DO Location:[facility] Appointment Type:BS OV Follow Up Appointment Date:10/12/2025 11:00:00 AM Scheduled Provider:JOSH JEFFERS DO Location:[facility] Appointment Type:BS OV Follow Up [facility] Evaluation note* Diagnosis Onset Date Resolution Status Obesity chronic DOROTEO (obstructive sleep apnea) chronic Vaginal bleeding acute Ankle swelling chronic 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 Breast nodule acute Ductal carcinoma in situ (DCIS) of left breast resolved 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 Work Phone: evaluation note* Diagnosis Onset Date Resolution Status Diabetes mellitus chronic High cholesterol chronic Obesity chronic Post-menopausal chronic Vitamin D deficiency chronic Obesity chronic DOROTEO (obstructive sleep apnea) chronic Lesion of bladder acute [facility] Work Phone: Evaluation note* Diagnosis Onset Date Resolution Status Obesity chronic DOROTEO (obstructive sleep apnea) chronic Lesion of bladder acute 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 Work Phone: Evaluation noteNo assessment information available [facility] Work Phone: History and physical note Author Chelsea Gilman [facility] May 01, 2023 7:24am Note Date/Time May 01, 2023 7:24 am [facility] Medical Records Department [address] [place] [address] History & Physical Exam 05/01/23 0720 MR#: [id number] Acct: [id number] Name: AMAYA GARCIA JASMYNE Rep #:[id number] : 1955 67 From: Chelsea Sampson PCP: Dr. 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 The cystoscopy was being done for her urinary tract infections and she also struggles with overactive bladder and is on Gemtesa. Informed consent was obtained for the procedure. [facility] Medical History (Updated 05/01/23 @ 07:[address] Chelsea Gilman MD) Alcohol use Arthritis BiPAP (biphasic positive airway pressure) dependence Bladder disease Breast cancer Cancer Cirrhosis Diabetes Diverticulitis Easy bruising Former smoker History of edema History of IBS History of stress test Hyperlipidemia IBS (irritable bowel syndrome) Obesity DOROTEO (obstructive sleep apnea) Rheumatoid arthritis SOB (shortness of breath) Urinary tract infection Vitamin D deficiency Wears glasses Home Medications trazodone 150 mg tablet 150 mg PO QHS 01/10/17 [History Last Taken Unknown] escitalopram oxalate 10 mg tablet 10 mg PO DAILY 02/25/17 [History Last Taken Unknown] rosuvastatin 40 mg tablet 40 mg PO DAILY 12/31/17 [History Last Taken Unknown] celecoxib 200 mg capsule 200 mg PO DAILY 05/30/20 [History Last Taken Unknown] cholecalciferol (vitamin D3) 25 mcg (1,000 unit) tablet 1,000 unit PO DAILY 05/30/20 [History Last Taken Unknown] valacyclovir 500 mg tablet 500 mg PO DAILY 05/30/20 [History Last Taken Unknown] cyclobenzaprine 5 mg tablet 5 mg PO DAILY PRN muscle spasm 12/10/21 [History Last Taken Unknown] ezetimibe 10 mg tablet (Zetia) 10 mg PO DAILY #90 tabs 01/27/23 [Rx Last Taken Unknown] tirzepatide 5 mg/0.5 mL subcutaneous pen injector (Mounjaro) 5 mg (0.5 mL) subcut QWEEK #2 mL 02/10/23 [Rx Last Taken Unknown] Allergy/AdvReac Type Severity Reaction Status Date / Time No Known Allergies Allergy Verified 04/24/23 13:50 Family History Mother CVA (cerebral vascular accident) Arthritis Heart disease Father Hypertension Heart disease Diabetes Other Angina at rest Asthma Breast cancer High cholesterol Myocardial infarction Surgical History (Updated 04/24/23 @ 13:59 by Cecelia Aguilar) History of section History of lumpectomy History of shoulder surgery History of tonsillectomy and adenoidectomy History of tubal ligation Social History Smoking Status: Former smoker Tobacco: How many years used: 20 how long ago did patient quit smokin, 1ppd second hand exposure: Yes alcohol intake: current alcohol intake frequency: a few times a month Alcohol type: beer substance use type: does not use what type of physical activity do you participate in: none ROS Constitutional Constitutional: Reports systems reviewed and no addt'l complaints, except as documented; Denies chills, fever(s) or headache(s) Eyes Eyes: Reports systems reviewed and no addt'l complaints, except as documented ENT HEENT: Reports systems reviewed and no addt'l complaints, except as documented Cardiovascular Cardiovascular: Denies abdominal pain, chest pain, dizziness or dyspnea Respiratory/Chest Respiratory/Chest: Denies chest congestion, cough, dyspnea or inability to speak Gastrointestinal Gastrointestinal: Denies abdominal pain, nausea or vomiting Genitourinary Genitourinary: Reports urinary frequency and urinary urgency Musculoskeletal Musculoskeletal: Reports systems reviewed and no addt'l complaints, except as documented Integumentary Integumentary: Reports systems reviewed and no addt'l complaints, except as documented Neurologic Neurologic: Reports systems reviewed and no addt'l complaints, except as documented Psychiatric Psychiatric: Reports systems reviewed and no addt'l complaints, except as documented Endocrine Endocrinology: Reports systems reviewed and no addt'l complaints, except as documented Hematologic/Lymphatic Hematologic/Lymphatic: Reports systems reviewed and no addt'l complaints, exceptas documented Allergic/Immunologic Allergic/Immunologic: Reports systems reviewed and no addt'l complaints, except as documented Vital Signs Vital Signs Vital Signs: 05/01/23 06:28 05/01/23 06:28 Temperature 98.0 F Temperature Source Temporal Pulse Rate 68 Respiratory Rate 16 Respiratory Pattern Normal Blood Pressure 124/58 H Blood Pressure Mean 80 Blood Pressure Source Monitor Blood Pressure Position Semi-Fowlers Blood Pressure Location Right Arm Pulse Ox 92 Oxygen Delivery Method Room Air Weight Weight: 81 kg Body Mass Index (BMI) 33.7 Physical Exam Const alert, oriented x3 and no apparent distress General Appearance: cooperative and comfortable HEENT normocephalic, head/scalp atraumatic, hearing grossly normal bilaterally, external ears normal and external nose normal Eyes General Eye: normal appearance of both eyes Neck supple General: trachea midline Lymph Lymphatic: no lymphedema noted Chest inspection of chest normal Resp normal respiratory effort, normal air movement and no retractions Effort and Inspection: able to speak in complete sentences and symmetric chest movement Cardio regular rate GI soft to palpation, non-tender and non-distended no CVA tenderness Back/Spine no CVA tenderness Extremity normal to inspection Skin no rashes or lesions noted, no wounds, no jaundice, no petechiae and no mottling Neuro oriented x3, CN's II-XII intact bilaterally and moves all extremities Psych mental status grossly normal, thought process normal, cooperative and affect normal Results Lab / Micro Data 05/01/23 06:50 05/01/23 06:50 Labs: Laboratory Results - last 24 hr 05/01/23 06:50: WBC 6.6, RBC 4.78, Hgb 14.4, Hct 44.9, MCV 93.9, MCH 30.1, MCHC 32.1, RDW Std Deviation 45.1 H, RDW Coeff of Krunal 13.1, Plt Count 164, MPV 11.6 Assessment & Plan Assessment/Plan (1) Lesion of bladder: PLAN: Plan cystoscopy with biopsy and fulguration she will complete antibiotics and follow up next week for results 05/01/23723 <Electronically signed by Chelsea Gilman MD> Cosigner Signature (if applicable): CC: Dr. Freida Napier MD; Dr. Chelsea Gilman MD~ Signed [facility] Work Phone: Hospital Discharge instructions No data available for this section [facility] Hospital Discharge instructionsAmbulatory Orders* Prior Authorization Referral - ONC/HEM Location: None Selected [facility] Work Phone: Instructions* Name Dates Details How to access HipLink Indication:Impaired fasting glucose Start:31-Oct-2015 Instruction Type:Patient Education How to access TeamBuy online - Detail Indication:Impaired fasting glucose Start:31-Oct-2015 Instruction Type:Patient Education Patient Instructions Indication:Impaired fasting glucose Start:31-Oct-2015 Instruction Type:Provider Instructions for Treatment How to access HipLink Indication:Impaired fasting glucose Start:27-Jun-2015 Instruction Type:Patient Education How to access TeamBuy online - Detail Indication:Impaired fasting glucose Start:27-Jun-2015 Instruction Type:Patient Education Patient Instructions Indication:Impaired fasting glucose Start:27-Jun-2015 Instruction Type:Provider Instructions for Treatment Patient Instructions Indication:Impaired fasting glucose Start:06-Feb-2015 Instruction Type:Provider Instructions for Treatment Patient Instructions Indication:Weight gain Start:01-Nov-2013 Instruction Type:Provider Instructions for Treatment Patient Instructions Indication:Weight gain Start:28-Sep-2013 Instruction Type:Provider Instructions for Treatment Patient Instructions Indication:Impaired fasting glucose Start:27-Jul-2013 Instruction Type:Provider Instructions for Treatment Patient Instructions Indication:Obesity Start:23-Oct-2012 Instruction Type:Provider Instructions for Treatment Patient Instructions Indication:Hypercholesterolemia Start:19-Aug-2012 Instruction Type:Provider Instructions for Treatment [facility] Work Phone: progress note No data available for this section [facility] Progress note Author Brando Chacon [facility] Note Date/Time June 23, 2025 11:11am [facility] [address] [place] [address] OFFICE VISIT Date of Service: 06/23/25 1003 MR#: [id number] Acct: [id number] Name: AMAYA GARCIA Rep #: [id number] : 1955 From: Brando Chacon MD Age/Sex: 69/F Location: [facility] [place] Status: Signed HPI Subjective Date of Service 06/23/25 Chief Complaint F/u for L breast cancer. History of Present Illness 69-year-old woman with h/o left breast DCIS She underwent stereotactic breast biopsy on December 25, 2016 which showed DCIS, ER/CT positive. She had left breastlumpectomy and sentinel node biopsy on January 15, 2017 which showed DCIS with no wilton involvement. She completed radiation therapy to the left breast from 02/19/2017 to 04/14/2017. Tamoxifen April 15, 2017- February 2023. Developed L breast nodule. Had mammogram and US. Biopsy of left breast nodule on 12/22/2024 showed invasive ductal carcinoma, ER/CT positive, HER2 negative by FISH. Biopsy of R breast showed DCIS on 01/06/2025. Had lower back pain and worried that it is metastatic disease so CT and bone scan were requested. CT on 01/28/2025 was negative. Bone scan on 02/07/2025 on was negative. Had breast surgery and plastic surgery in [place] on 03/22/2025. Bilateral mastectomy, left axillary dissection and bilateral breast reconstruction with tissue automotive professional and AlloDerm on the right and latissimus flap on the left. Pathology showed right breast mastectomy2.5 cm DCIS with multiple foci of microinvasion, sentinel node of right axilla 2negative. Pathology for left breast mastectomy showed invasive ductal carcinoma, grade 1 mucinous component and grade 2 component of no specific type measuring 1.8 cm, margins negative, sentinel nodes 2 negative, Pathologic staging pT1c pN0. ER +81 to 90%, CT +21 to 30%, HER2 2+ by IHC. Comes for follow-up to discuss further management. She feels well. [facility] Medical History Abnormal mammogram of right breast Abnormal ultrasound of breast Left breast mass Urinary tract infection Wears glasses Cancer Alcohol use Diabetes Rheumatoid arthritis Bladder disease Cirrhosis Easy bruising History of IBS Former smoker BiPAP (biphasic positive airway pressure) dependence History of edema History of stress test IBS (irritable bowel syndrome) DOROTEO (obstructive sleep apnea) Obesity Vitamin D deficiency Breast cancer SOB (shortness of breath) Hyperlipidemia Diverticulitis Arthritis Surgical History H/O mastectomy H/O cystoscopy H/O wrist surgery H/O breast surgery History of shoulder surgery History of tonsillectomy and adenoidectomy History of tubal ligation History of lumpectomy History of section Family History Mother CVA (cerebral vascular accident) Arthritis Heart disease Father Hypertension Heart disease Diabetes Aunt Breast cancer Grandmother Breast cancer Other Angina at rest Asthma Coagulation disorder High cholesterol Myocardial infarction Social History Smoking Status: Former smoker Tobacco: How many years used: 20 how long ago did patient quit smokin, 1ppd second hand exposure: Yes alcohol intake: current alcohol intake frequency: a few times a month Alcohol type: beer details: occasionally substance use type: does not use what type of physical activity do you participate in: none frequency: other duration: other do you feel safe at home: Yes Intake Vital Signs 05/30/25 10:49 06/23/25 10:03 Height 5 ft 1 in 5 ft 1 in Weight: 90.265 kg BMI 37.5 BP 112/75 Blood Pressure Location Lt brachial Position Sitting Respiration 16 Pulse 69 Pulse Source Monitor Temp 98.1 F Temperature Source Temporal Artery Pulse Oximetry (%) 98 Oxygen Delivery Method room air Intake Machine Edge Bander Required: No Accompanied by: Daughter Is patient in pain?: No Allergies No Known Allergies Allergy (Verified 06/23/25 10:06) Medications ?Medication ?Instructions ?Recorded ?Confirmed ?Type trazodone 150 mg tablet 150 mg PO QHS 01/10/1706/23 History escitalopram oxalate 10 mg tablet 10 mg PO DAILY 02/2506/23/25 History rosuvastatin 40 mg tablet 40 mg PO DAILY 12/31/1706/06 History cholecalciferol (vitamin D3) 25 1,000 unit PO DAILY 06/23/25 History mcg (1,000 unit) tablet valacyclovir 500 mg tablet 500 mg PO DAILY 05/30/20 History cyclobenzaprine 5 mg tablet 5 mg PO DAILY PRN muscle s pasm 12/10/21 06/23/25 History meloxicam 15 mg tablet 15 mg PO QDAY 03/11/2406/23 History ezetimibe 10 mg tablet (Zetia) 10 mg PO DAILY #90 tabs 08/18/24 06/23/25 Rx fesoterodine 4 mg tablet,extended 4 mg PO QDAY 06/23/25 History release 24 hr methocarbamol 750 mg tablet 750 mg PO TID 05/16/25 History Gemtesa 75 mg tablet (vibegron) 75 mg PO QDAY #90 tabs 05/17/25 06/23/25 Rx anastrozole 1 mg tablet 1 mg PO QDAY 2 months #60 ta bs 06/23/25 06/23/25 Rx Have you fallen in the past year?: No Central Venous Access Central Venous Access: No 06/08/2025 Bone density reviewed. BD/Dexa Bone Density Study IMPRESSION: OSTEOPENIA. Recommend follow-up as clinically warranted. 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 BRCA 1 & [address] 01/27/2025 reviewed, no evidence of metastatic disease. Bone scan on 02/07/2025 reviewed, no evidence of metastatic disease. Had breast surgery in [place]. Pathology showed L Invasive ductal ca, grade 1- 2,tumor size 1.8cm-pT1c pN0. Prognostic stage IA. Oncotype DX recurrence score 19. Less than benefit from chemotherapy. Osteopenia. Discussed adjuvant hormonal therapy with Anatrozole, osteoporosis prophlyaxis. Plan: To start Anastrozole 1mg daily. To obtain pre-authorization for Reclast for osteoporosis prophylaxis. 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 Now with Invasive breast cancer in the L breast. S/P mastectomy + mammoplasty. Plan: To continue observation. (3) Ductal carcinoma in situ (DCIS) of right breast: Status: Acute Comment: S/P R mastectomy Plan: To do observation (4) Osteopenia after menopause: Status: Chronic Plan: To do Reclast 5mg IV every 2 yrs. Orders: Orders CBC W/Diff, Automated 08/26/25 C50.812 - Malignant neoplasm of overlapping sites of left female breast, D05.11 - Intraductal carcinoma in situ of right breast, D05.12 - Intraductal carcinoma in situ of left breast, M85.80 - Other specified disorders of bone density and structure, unspecified site, Z17.0 - Estrogen receptor positive status [ER+], Z78.0 - Asymptomatic menopausal state Comprehensive Metabolic Profil 08/26/25 C50.812 - Malignant neoplasm of overlapping sites of left female breast, D05.11 - Intraductal carcinoma in situ of right breast, D05.12 - Intraductal carcinoma in situ of left breast, M85.80 - Other specified disorders of bone density and structure, unspecified site, Z17.0 - Estrogen receptor positive status [ER+], Z78.0 - Asymptomatic menopausal state LDH 08/26/25 C50.812 - Malignant neoplasm of overlapping sites of left female breast, D05.11 - Intraductal carcinoma in situ of right breast, D05.12 - Intraductal carcinoma in situ of left breast, M85.80 - Other specified disorders of bone density and structure, unspecified site, Z17.0 - Estrogen receptor positive status [ER+], Z78.0 - Asymptomatic menopausal state Carcinoembryonic Antigen 08/26/25 C50.812 - Malignant neoplasm of overlapping sites of left female breast, D05.11 - Intraductal carcinoma in situ of right breast, D05.12 - Intraductal carcinoma in situ of left breast, M85.80 - Other specified disorders of bone density and structure, unspecified site, Z17.0 - Estrogen receptor positive status [ER+], Z78.0 - Asymptomatic menopausal state Cancer Antigen 125 08/26/25 C50.812 - Malignant neoplasm of overlapping sites of left female breast, D05.11 - Intraductal carcinoma in situ of right breast, D05.12 - Intraductal carcinoma in situ of left breast, M85.80 - Other specified disorders of bone density and structure, unspecified site, Z17.0 - Estrogen receptor positive status [ER+], Z78.0 - Asymptomatic menopausal state CA 15-3 08/26/25 C50.812 - Malignant neoplasm of overlapping sites of left female breast, D05.11 - Intraductal carcinoma in situ of right breast, D05.12 - Intraductal carcinoma in situ of left breast, M85.80 - Other specified disorders of bone density and structure, unspecified site, Z17.0 - Estrogen receptor positive status [ER+], Z78.0 - Asymptomatic menopausal state CA 27.29 08/26/25 C50.812 - Malignant neoplasm of overlapping sites of left female breast, D05.11 - Intraductal carcinoma in situ of right breast, D05.12 - Intraductal carcinoma in situ of left breast, M85.80 - Other specified disorders of bone density and structure, unspecified site, Z17.0 - Estrogen receptor positive status [ER+], Z78.0 - Asymptomatic menopausal state Carbohydrate AG 19-9 08/26/25 C50.812 - Malignant neoplasm of overlapping sites of left female breast, D05.11 - Intraductal carcinoma in situ of right breast, D05.12 - Intraductal carcinoma in situ of left breast, M85.80 - Other specified disorders of bone density and structure, unspecified site, Z17.0 - Estrogen receptor positive status [ER+], Z78.0 - Asymptomatic menopausal state Referrals Prior Authorization Referral - ONC/HEM M85.80 - Other specified disorders of bone density and structure, unspecified site, Z78.0 - Asymptomatic menopausal state Medications: New anastrozole 1 mg PO QDAY 60 tabs 6RF 2 months Plan Details Follow Up: 2 Months Clinical Quality Measures Falls Risk Screening/Assistive Devices Have you fallen in the past year?: No 06/24/25 0935 <Electronically signed by Brando Sampson> Date _ Brando Chacon MD [facility] Signature: Date (if applicable) CC: LANA Mckay ~ [facility] Work Phone: Reason for referral (narrative)No reason for referral information availableWGlenbeigh [facility] Work Phone: Chief Complaint and Reason for Visit Chief Complaint 3 M FU ONC/HEM 6MO LABS LUMP Reason for Visit Obesity DOROTEO (obstructive sleep apnea) Vaginal bleeding Ankle swelling History of ductal carcinoma in situ (DCIS) of breast Breast nodule Ductal carcinoma in situ (DCIS) of left breast Chief Complaint 3 M FU ONC/HEM 6MO LABS LUMP ABNORMAL LIVER FUNCTION TEST Reason for Visit Obesity DOROTEO (obstructive sleep apnea) Vaginal bleeding Ankle swelling History of ductal carcinoma in situ (DCIS) of breast Breast nodule Ductal carcinoma in situ (DCIS) of left breast Chief Complaint ONC/HEM 6MO LABS LUMP ABNORMAL LIVER FUNCTION TEST ABN LFT Reason for Visit Vaginal bleeding Ankle swelling History of ductal carcinoma in situ (DCIS) of breast Breast nodule Ductal carcinoma in situ (DCIS) of left breast Chief Complaint ONC/HEM 6MO LABS LUMP ABNORMAL LIVER FUNCTION TEST ABN LFT Diabetes E ORDERS Reason for Visit Vaginal bleeding Ankle swelling History of ductal carcinoma in situ (DCIS) of breast Breast nodule Ductal carcinoma in situ (DCIS) of left breast Diabetes mellitus Dysuria Hyperlipidemia Obesity Vitamin D deficiency Chief Complaint Diabetes E ORDERS ONC/HEM 6MO LABS Reason for Visit Diabetes mellitus Dysuria Hyperlipidemia Obesity Vitamin D deficiency Vaginal bleeding Ankle swelling History of ductal carcinoma in situ (DCIS) of breast Ductal carcinoma in situ (DCIS) of left breast Chief Complaint ONC/HEM 6MO LABS 3 M FU UTI Reason for Visit Vaginal bleeding Ankle swelling History of ductal carcinoma in situ (DCIS) of breast Ductal carcinoma in situ (DCIS) of left breast Diabetes mellitus High cholesterol Obesity Post-menopausal Vitamin D deficiency Chief Complaint 3 M FU UTI 1 Y FU CYSTO, BLADDER BX, FULGURATION Reason for Visit Diabetes mellitus High cholesterol Obesity Post-menopausal Vitamin D deficiency Obesity DOROTEO (obstructive sleep apnea) Lesion of bladder Chief Complaint 1 Y FU CYSTO, BLADDER BX, FULGURATION PREOP SCREENING Reason for Visit Obesity DOROTEO (obstructive sleep apnea) Lesion of bladder Chief Complaint CYSTO, BLADDER BX, F ULGURATION PREOP SCREENING 8MO NO LABS REVIEW MAMMO 6 M FU, RS 06/30 Reason for Visit Lesion of bladder Ductal carcinoma in situ (DCIS) of left breast Diabetes High cholesterol Obesity Vitamin D deficiency Chief Complaint AUB Chief Complaint Admit Date 6 M FU September 09, 2024 3 :13pm ACUT-FELT LUMP IN BREAST December 09, 2024 11:14am LT BREAST MASS December 16, 2024 8:3 1am BIRADS 4 December 22, 2024 8:0 2am L BREAST BIOPSY December 22, 2024 10: 29am Reason for Visit Admit Date Diabetes September 09, 2024 3 :13pm High cholesterol September 09, 2024 3 :13pm Obesity September 09, 2024 3 :13pm Vitamin D deficiency September 09, 2024 3:13pm Left breast mass December 09, 2024 11:1 4am Ductal carcinoma in situ (DCIS) of left breast December 09, 2024 11:14am Abnormal mammogram of right breast December 22, 2024 8:02am Left breast mass December 22, 2024 8:0 2am Chief Complaint Admit Date ACUT-FELT LUMP IN BREAST December 09, 2024 11:14am LT BREAST MASS December 16, 2024 8:3 1am BIRADS 4 December 22, 2024 8:0 2am L BREAST BIOPSY December 22, 2024 10: 29am ABNORMAL MAMM January 06, 2025 8:03 am ABNORMAL MAMM January 06, 2025 9:17 am Reason for Visit Admit Date Left breast mass December 09, 2024 11:1 4am Ductal carcinoma in situ (DCIS) of left breast December 09, 2024 11:14am Abnormal mammogram of right breast December 22, 2024 8:02am Left breast mass December 22, 2024 8:0 2am Abnormal mammogram of right breast January 06, 2025 8:03am Chief Complaint Admit Date ACUT-FELT LUMP IN BREAST December 09, 2024 11:14am LT BREAST MASS December 16, 2024 8:3 1am BIRADS 4 December 22, 2024 8:0 2am L BREAST BIOPSY December 22, 2024 10: 29am ABNORMAL MAMM January 06, 2025 8:03 am ABNORMAL MAMM January 06, 2025 9:17 am DISCUSS BREAST SURGERY January 19, 2025 2:55pm F/U NO LABS DCIS IN OTHER BREAST January 052024 9:17am ONC/HEM January 27, 2025 11: 00am BREAST CANCER January 28, 2025 7:2 0am BREAST CANER February 07, 2025 9:24am 2WKS LABS PRIOR REVIEW BONE SCAN/CT February 10, 2025 9:50am Reason for Visit Admit Date Left breast mass December 09, 2024 11:1 4am Ductal carcinoma in situ (DCIS) of left breast December 09, 2024 11:14am Abnormal mammogram of right breast December 22, 2024 8:02am Left breast mass December 22, 2024 8:0 2am Abnormal mammogram of right breast January 06, 2025 8:03am Abnormal mammogram of right breast January 19, 2025 2:55pm DCIS (ductal carcinoma in situ) January 192024 2:55pm DCIS (ductal carcinoma in situ) January 272024 9:17am 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 January 27, 2025 9:17am Lower back pain January 27, 2025 9:1 7am Breast cancer, left January 27, 2025 9:1 7am Ductal carcinoma in situ (DCIS) of left breast January 27, 2025 9:17am Vaginal bleeding January 27, 2025 11: 00am Ankle swelling January 27, 2025 11: 00am 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 January 27, 2025 11:00am DCIS (ductal carcinoma in situ) February 10, 2025 9:50am 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 February 10, 2025 9:50am Lower back pain February 10, 2025 9:50am Breast cancer, left February 10, 2025 9:50am Ductal carcinoma in situ (DCIS) of left breast February 10, 2025 9:50am Chief Complaint Admit Date ACUT-FELT LUMP IN BREAST December 09, 2024 11:14am LT BREAST MASS December 16, 2024 8:3 1am BIRADS 4 December 22, 2024 8:0 2am L BREAST BIOPSY December 22, 2024 10: 29am ABNORMAL MAMM January 06, 2025 8:03 am ABNORMAL MAMM January 06, 2025 9:17 am DISCUSS BREAST SURGERY January 19, 2025 2:55pm F/U NO LABS DCIS IN OTHER BREAST January 052024 9:17am ONC/HEM January 27, 2025 11: 00am BREAST CANCER January 28, 2025 7:2 0am BREAST CANER February 07, 2025 9:24am 2WKS LABS PRIOR REVIEW BONE SCAN/CT February 10, 2025 9:50am 6 M FU March 10, 2025 9:26a m Reason for Visit Admit Date Left breast mass December 09, 2024 11:1 4am Ductal carcinoma in situ (DCIS) of left breast December 09, 2024 11:14am Abnormal mammogram of right breast December 22, 2024 8:02am Left breast mass December 22, 2024 8:0 2am Abnormal mammogram of right breast January 06, 2025 8:03am Abnormal mammogram of right breast January 19, 2025 2:55pm DCIS (ductal carcinoma in situ) January 192024 2:55pm DCIS (ductal carcinoma in situ) January 272024 9:17am 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 January 27, 2025 9:17am Lower back pain January 27, 2025 9:1 7am Breast cancer, left January 27, 2025 9:1 7am Ductal carcinoma in situ (DCIS) of left breast January 27, 2025 9:17am Vaginal bleeding January 27, 2025 11: 00am Ankle swelling January 27, 2025 11: 00am 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 January 27, 2025 11:00am DCIS (ductal carcinoma in situ) February 10, 2025 9:50am 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 February 10, 2025 9:50am Lower back pain February 10, 2025 9:50am Breast cancer, left February 10, 2025 9:50am Ductal carcinoma in situ (DCIS) of left breast February 10, 2025 9:50am Diabetes March 10, 2025 9:26a m High cholesterol March 10, 2025 9:26a m Obesity March 10, 2025 9:26a m Vitamin D deficiency March 10, 2025 9:26 am Chief Complaint Admit Date DISCUSS BREAST SURGERY January 19, 2025 2:55pm F/U NO LABS DCIS IN OTHER BREAST January 052024 9:17am ONC/HEM January 27, 2025 11: 00am BREAST CANCER January 28, 2025 7:2 0am BREAST CANER February 07, 2025 9:24am 2WKS LABS PRIOR REVIEW BONE SCAN/CT February 10, 2025 9:50am 6 M FU March 10, 2025 9:26a m 12MO MED F/U May 13, 2025 10: 14am Reason for Visit Admit Date Abnormal mammogram of right breast January 19, 2025 2:55pm DCIS (ductal carcinoma in situ) January 192024 2:55pm DCIS (ductal carcinoma in situ) January 272024 9:17am 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 January 27, 2025 9:17am Lower back pain January 27, 2025 9:1 7am Breast cancer, left January 27, 2025 9:1 7am Ductal carcinoma in situ (DCIS) of left breast January 27, 2025 9:17am Vaginal bleeding January 27, 2025 11: 00am Ankle swelling January 27, 2025 11: 00am 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 January 27, 2025 11:00am DCIS (ductal carcinoma in situ) February 10, 2025 9:50am 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 February 10, 2025 9:50am Lower back pain February 10, 2025 9:50am Breast cancer, left February 10, 2025 9:50am Ductal carcinoma in situ (DCIS) of left breast February 10, 2025 9:50am Diabetes March 10, 2025 9:26a m High cholesterol March 10, 2025 9:26a m Obesity March 10, 2025 9:26a m Vitamin D deficiency March 10, 2025 9:26 am Mixed incontinence May 13, 2025 10: 14am Nocturia May 13, 2025 10: 14am Overactive bladder May 13, 2025 10: 14am Post-menopausal atrophic vaginitis Augus t 2024 10:14am Chief Complaint Admit Date DISCUSS BREAST SURGERY January 19, 2025 2:55pm F/U NO LABS DCIS IN OTHER BREAST January 052024 9:17am ONC/HEM January 27, 2025 11: 00am BREAST CANCER January 28, 2025 7:2 0am BREAST CANER February 07, 2025 9:24am 2WKS LABS PRIOR REVIEW BONE SCAN/CT February 10, 2025 9:50am 6 M FU March 10, 2025 9:26a m 12MO MED F/U May 13, 2025 10: 14am 1 Y FU May 16, 2025 10 :13am Reason for Visit Admit Date Abnormal mammogram of right breast January 19, 2025 2:55pm DCIS (ductal carcinoma in situ) January 192024 2:55pm DCIS (ductal carcinoma in situ) January 272024 9:17am 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 January 27, 2025 9:17am Lower back pain January 27, 2025 9:1 7am Breast cancer, left January 27, 2025 9:1 7am Ductal carcinoma in situ (DCIS) of left breast January 27, 2025 9:17am Vaginal bleeding January 27, 2025 11: 00am Ankle swelling January 27, 2025 11: 00am 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 January 27, 2025 11:00am DCIS (ductal carcinoma in situ) February 10, 2025 9:50am 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 February 10, 2025 9:50am Lower back pain February 10, 2025 9:50am Breast cancer, left February 10, 2025 9:50am Ductal carcinoma in situ (DCIS) of left breast February 10, 2025 9:50am Diabetes March 10, 2025 9:26a m High cholesterol March 10, 2025 9:26a m Obesity March 10, 2025 9:26a m Vitamin D deficiency March 10, 2025 9:26 am Mixed incontinence May 13, 2025 10: 14am Nocturia May 13, 2025 10: 14am Overactive bladder May 13, 2025 10: 14am Post-menopausal atrophic vaginitis Mayus t 2024 10:14am Obesity May 16, 2025 10 :13am DOROTEO (obstructive sleep apnea) May 10:13am Chief Complaint Admit Date BREAST CANER February 07, 2025 9:24am 2WKS LABS PRIOR REVIEW BONE SCAN/CT February 10, 2025 9:50am 6 M FU March 10, 2025 9:26a m 12MO MED F/U May 13, 2025 10: 14am 1 Y FU May 16, 2025 10 :13am F/U SURGERY LABS(DO NOT WAIT) RECORDS FR OM [facility] May 30, 2025 9:57am ONC/HEM May 30, 2025 10 :00am Reason for Visit Admit Date DCIS (ductal carcinoma in situ) February 10, 2025 9:50am 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 February 10, 2025 9:50am Lower back pain February 10, 2025 9:50am Breast cancer, left February 10, 2025 9:50am Ductal carcinoma in situ (DCIS) of left breast February 10, 2025 9:50am Diabetes March 10, 2025 9:26a m High cholesterol March 10, 2025 9:26a m Obesity March 10, 2025 9:26a m Vitamin D deficiency March 10, 2025 9:26 am Mixed incontinence May 13, 2025 10: 14am Nocturia May 13, 2025 10: 14am Overactive bladder May 13, 2025 10: 14am Post-menopausal atrophic vaginitis Mayus 2024 10:14am Obesity May 16, 2025 10 :13am DOROTEO (obstructive sleep apnea) May 10:13am DCIS (ductal carcinoma in situ) May 072024 9:57am 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 May 30, 2025 9:57am Breast cancer, left May 30, 2025 9: 57am Ductal carcinoma in situ (DCIS) of left breast May 30, 2025 9:57am Vaginal bleeding May 30, 2025 10 :00am Ankle swelling May 30, 2025 10 :00am 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 May 30, 2025 10:00am Chief Complaint Admit Date 6 M FU March 10, 2025 9:26a m 12MO MED F/U May 13, 2025 10: 14am 1 Y FU May 16, 2025 10 :13am F/U SURGERY LABS(DO NOT WAIT) RECORDS FR [facility] May 30, 2025 9:57am ONC/HEM May 30, 2025 10 :00am Asymptomatic menopausal state June 08, 2025 8:24am 3WKS NO LABS REVIEW DEXA ONCOYPE-SCANNED June 23, 2025 9:55am Reason for Visit Admit Date Diabetes March 10, 2025 9:26a m High cholesterol March 10, 2025 9:26a m Obesity March 10, 2025 9:26a m Vitamin D deficiency March 10, 2025 9:26 am Mixed incontinence May 13, 2025 10: 14am Nocturia May 13, 2025 10: 14am Overactive bladder May 13, 2025 10: 14am Post-menopausal atrophic vaginitis Augus t 2024 10:14am Obesity May 16, 2025 10 :13am DOROTEO (obstructive sleep apnea) May 10:13am Ductal carcinoma in situ (DCIS) of right breast May 30, 2025 9:57am Breast cancer, left May 30, 2025 9: 57am Ductal carcinoma in situ (DCIS) of left breast May 30, 2025 9:57am Vaginal bleeding May 30, 2025 10 :00am Ankle swelling May 30, 2025 10 :00am 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 May 30, 2025 10:00am Ductal carcinoma in situ (DCIS) of right breast June 23, 2025 9:55am Breast cancer, left June 23, 2025 9:55am Ductal carcinoma in situ (DCIS) of left breast June 23, 2025 9:55am Osteopenia after menopause June 9:55am Family History No Family History Records Found Relationship Condition Age at Onset Recorded Date/T kush mother Cerebrovascular accident (CVA) Unknown Arthritis Unknown Cardiac disease Unknown father Hypertension Unknown Diabetes mellitus Unknown Relationship Condition Age at Onset Recorded Date/T kush Not Specified High blood cholesterol Unknown Angina at rest Unknown Myocardial infarction Unknown Malignant neoplasm of breast Unknown Asthma Unknown mother Cerebrovascular accident (CVA) Unknown Arthritis Unknown Cardiac disease Unknown father Hypertension Unknown Diabetes mellitus Unknown Unknown Family Member Name Dates Details Brother 1 Comments:kidney cancer - kb al cell diagnosed age 39 Status:Active Father Comments: age 73- smith d valvular heart disease and cad and diabetes- high chol Status:Active First Degree Relatives Comments:Cancer, Diabetes, H eart/lung dx, High cholesterol Status:Active Mother Comments:- cad dementia - as thma high chol htn- age 81- unknown cause Status:Active Relationship Condition Age at Onset Recorded Date/T kush Not Specified High blood cholesterol Unknown Angina at rest Unknown Myocardial infarction Unknown Asthma Unknown mother Cerebrovascular accident (CVA) Unknown Arthritis Unknown Cardiac disease Unknown father Hypertension Unknown Diabetes mellitus Unknown aunt Malignant neoplasm of breast Unknown grandmother Malignant neoplasm of breast Unknown Relationship Condition Age at Onset Recorded Date/T kush Not Specified High blood cholesterol Unknown Angina at rest Unknown Coagulation disorder Unknown Myocardial infarction Unknown Asthma Unknown mother Cerebrovascular accident (CVA) Unknown Arthritis Unknown Cardiac disease Unknown father Hypertension Unknown Diabetes mellitus Unknown aunt Malignant neoplasm of breast Unknown grandmother Malignant neoplasm of breast Unknown Family Member Condition Full Brother Kidney disease Full Brother Cancer Father Vascular disease Father Stroke/TIA Father Gout Father High blood pressure Father Heart disease Father Diabetes - insulin d ependent Father Blood clots Father Mother Stroke/TIA Mother Osteoporosis Mother Heart disease Mother Arthritis Mother Alzheimer Mother Advance Directives No Advanced Directives Records Found Advance Directive Response Recorded Date/ Time Living Will No March 18, 2021 8:39am Power of Woodworking Shop Laborer No March 18 8:39am Advance Directive Response Recorded Date/ Time Living Will No March 18, 2021 7:39am Power of Woodworking Shop Laborer No March 18 7:39am Advance Directive Response Recorded Date/ Time Name of Medical Power of Woodworking Shop Laborer SPOUSE/DARONNIEE R April 24, 2023 1:53pm Living Will Yes April 24, 2023 1:53pm Power of Woodworking Shop Laborer Yes April 24 1:53pm Advance Directive Response Recorded Date/ Time Name of Medical Power of Woodworking Shop Laborer SPOUSE/DARONNIEE R April 24, 2023 12:53pm Living Will Yes April 24, 2023 12:53pm Power of Woodworking Shop Laborer Yes April 24 12:53pm Advance Directive Response Recorded Date/ Time Living Will Yes April 24, 2023 1:53pm Power of Woodworking Shop Laborer Yes April 24 1:53pm Advance Directive Response Recorded Date/ Time Living Will Yes April 24, 2023 1:53pm Do you have a Healthcare Power of Woodworking Shop Laborer? Yes April 24, 2023 1:53pm Advance Directive Response Recorded Date/ Time Living Will Yes March 07, 2017 1 1:27am Do you have a Healthcare Power of Woodworking Shop Laborer? Yes March 07, 2017 11:27am Advance Directive Response Recorded Date/ Time Living Will Yes April 24, 2023 1:53pm Do you have a Healthcare Power of Woodworking Shop Laborer? Yes April 24, 2023 1:53pm Living Will Yes March 07, 2017 1 1:27am Do you have a Healthcare Power of Woodworking Shop Laborer? Yes March 07, 2017 11:27am Summary Purpose Additional Source Comments Goals (unrecognized section and content) Goals may be documented in a n alternate sectionGoals may be documented in an alternate sectionGoals may be documented in an alternate sectionGoals may be documented in an alternate sectionGoals may be documented in an alternate sectionGoals may be documented in an alternate sectionGoals may be documented in an alternate section No data available for this sectionGoals may be documented in an alternate sectionGoals may be documented in an alternate section No data available for this sectionGoals may be documented in an alternate section No data available for this sectionGoals may be documented in an alternate section No data available for this sectionGoals may be documented in an alternate section No data available for this section No data available for this sectionGoals may be documented in an alternate sectionGoals may be documented in an alternate sectionGoals may be documented in an alternate section No Information AvailableGoals may be documented in an alternate sectionGoals may be documented in an alternate section Care Teams (unrecognized sec tion and content) Team Status: Active Member Role Status Dates Dr. Mike Shafer MD Family Provider Active No Primary Care Physician Primary Care Provider Active Team Status: Inactive Member Role Status Dates Dr. Mike Shafer MD Primary Care Provider, Referring Provider Active Dr. Brando Chacon MD Attending Provider Active Team Status: Inactive Member Role Status Dates Dr. Mike Shafer MD Primary Care Provider, Referring Provider Active LANA Jameson Attending Provider Active Team Status: Active Member Role Status Dates Dr. Mike Shafer MD Primary Care Provi christina, Family Provider, Referring Provider Active Dr. Brando Chacon MD Attending Provider Active Team Status: Inactive Member Role Status Dates Dr. Mike Shafer MD Primary Care Provider Active LANA Jameson Attending Provider, Referring Pr ovider Active Team Status: Inactive Member Role Status Dates No Primary Care Physician Primary Care Provider Active Dr. Nima Sharma MD Attending Provider, Referring Provi christina Active Team Status: Active Member Role Status Dates Dr. Mike Shafer MD Family Provider Active Dr. Freida Napier MD Primary Care Provider Active Team Status: Inactive Member Role Status Dates Dr. Mike Shafer MD Referring Provider Active LANA Jameson Attending Provider Active No Primary Care Physician Primary Care Provider Active Team Status: Inactive Member Role Status Dates Dr. Chelsea Gilman MD Referring Provider Active Dr. Freida Napier MD Primary Care Provider Active LANA Jameson Attending Provider Active Team Status: Inactive Member Role Status Dates Dr. Mike Shafer MD Referring Provider Active Dr. Nicko Castellanos MD Attending Provider Active Dr. Freida Napier MD Primary Care Provider Active Team Status: Inactive Member Role Status Dates Dr. Freida Napier MD Primary Care Provider Active Dr. Chelsea Gilman MD Attending Provider, Referring P rovider Active Team Status: Active Member Role Status Dates Dr. Freida Napier MD Primary Care Provider Active Dr. Tila Reddy MD Attending Provider Activ e Dr. Chelsea Gilman MD Referring Provider Active Team Status: Inactive Member Role Status Dates Dr. Freida Napier MD Primary Care Provider Active Dr. Brando Chacon MD Attending Provider, Referring Pro vider Active Team Status: Inactive Member Role Status Dates No Primary Care Physician Referring Provider Active Elly Anuj , COMPUTER RECYCLING WORKER-C Attending Provider Active Dr. Freida Napier MD Primary Care Provider Active Team Status: Inactive Member Role Status Dates Dr. Freida Napier MD Primary Care Provider, Referrin g Provider Active Dr. Brando Chacon MD Attending Provider Active Team Status: Inactive Member Role Status Dates Dr. Freida Napier MD Primary Care Provider Active Lesterjazzmine Mckay , COMPUTER RECYCLING WORKER-C Attending Provider Active Team Status: Active Member Role Status Dates Dr. Mike Shafer MD Family Provider Active Lester Mckay , COMPUTER RECYCLING WORKER-C Primary Care Provider Active Team Status: Inactive Member Role Status Dates Dr. Chelsea Gilman MD Attending Provider, Referring P rocheyanneder Active Lester Mckay , COMPUTER RECYCLING WORKER-C Primary Care Provider Active Team Status: Active Member Role Status Dates Lester Mckay COMPUTER RECYCLING WORKER-C Primary Care Provider Active Team Status: Inactive Member Role Status Dates Lester Mckay COMPUTER RECYCLING WORKER-C Primary Care Provider Active Start: September 09, 2024 End: September 09, 2024 Lester Mckay COMPUTER RECYCLING WORKER-C Referring Provider Active St art: September 09, 2024 End: September 09, 2024 Elly Leslie NP-C Attending Provider Active Start: September 09, 2024 End: September 09, 2024 Team Status: Inactive Member Role Status Dates Lester Mckay COMPUTER RECYCLING WORKER-C Primary Care Provider Active Start: December 09, 2024 End: December 09, 2024 Lester Mckay COMPUTER RECYCLING WORKER-C Referring Provider Active St art: December 09, 2024 End: December 09, 2024 Daysi Kim COMPUTER RECYCLING WORKER, COMPUTER RECYCLING WORKER-C Attending Provider Active Start: December 09, 2024 End: December 09, 2024 Team Status: Inactive Member Role Status Dates Lester Mckay COMPUTER RECYCLING WORKER-C Primary Care Provider Active Start: December 16, 2024 End: December 16, 2024 Daysi Kim COMPUTER RECYCLING WORKER, COMPUTER RECYCLING WORKER-C Attending Provider Active Start: December 16, 2024 End: December 16, 2024 Daysi Kim COMPUTER RECYCLING WORKER, COMPUTER RECYCLING WORKER-C Referring Provider Active Start: December 16, 2024 End: December 16, 2024 Team Status: Inactive Member Role Status Dates Lester Mckay COMPUTER RECYCLING WORKER-C Primary Care Provider Active Start: December 22, 2024 End: December 22, 2024 Lester Mckay , COMPUTER RECYCLING WORKER-C Referring Provider Active St art: December 22, 2024 End: December 22, 2024 Dr. Darrel Lacy MD Attending Provider Active Start: December 22, 2024 End: December 22, 2024 Team Status: Active Member Role Status Dates Lester Mckay COMPUTER RECYCLING WORKER-C Primary Care Provider Active Start: December 22, 2024 Dr. Darrel Lacy MD Attending Provider Active Start: December 22, 2024 Dr. Darrel Lacy MD Referring Provider Active Start: December 22, 2024 Team Status: Inactive Member Role Status Dates Lester Mckay COMPUTER RECYCLING WORKER-C Primary Care Provider Active Start: January 06, 2025 End: January 06, 2025 Dr. Darrel Lacy MD Attending Provider Active Start: January 06, 2025 End: January 06, 2025 Dr. Darrel Lacy MD Referring Provider Active Start: January 06, 2025 End: January 06, 2025 Team Status: Active Member Role Status Dates Lester Mckay COMPUTER RECYCLING WORKER-C Primary Care Provider Active Start: January 06, 2025 Dr. Darrel Lacy MD Attending Provider Active Start: January 06, 2025 Dr. Darrel Lacy MD Referring Provider Active Start: January 06, 2025 Dr. Darrel Lacy MD Other Provider Active St art: January 06, 2025 Team Status: Inactive Member Role Status Dates Lester Mckay COMPUTER RECYCLING WORKER-C Primary Care Provider Active Start: January 19, 2025 End: January 19, 2025 Lester Mckay , COMPUTER RECYCLING WORKER-C Referring Provider Active St art: January 19, 2025 End: January 19, 2025 Dr. Darrel Lacy MD Attending Provider Active Start: January 19, 2025 End: January 19, 2025 Team Status: Inactive Member Role Status Dates Lester Mckay , COMPUTER RECYCLING WORKER-C Primary Care Provider Active Start: January 27, 2025 End: January 27, 2025 Lester Mckay COMPUTER RECYCLING WORKER-C Referring Provider Active St art: January 27, 2025 End: January 27, 2025 Dr. Brando Chacon MD Attending Provider Active S tart: January 27, 2025 End: January 27, 2025 Team Status: Active Member Role Status Dates Dr. Mike Shafer MD Primary Care Provider Active Start: January 27, 2025 Dr. Mike Shafer MD Family Provider Active Sta rt: January 27, 2025 Dr. iMke Shafer MD Referring Provider Active Start: January 27, 2025 Dr. Brando Chacon MD Attending Provider Active S tart: January 27, 2025 Team Status: Inactive Member Role Status Dates Lester Mckay COMPUTER RECYCLING WORKER-C Primary Care Provider Active Start: January 28, 2025 End: January 28, 2025 Dr. Barndo Chacon MD Attending Provider Active S tart: January 28, 2025 End: January 28, 2025 Dr. Brando Chacon MD Referring Provider Active S tart: January 28, 2025 End: January 28, 2025 Team Status: Inactive Member Role Status Dates Lester Mckay COMPUTER RECYCLING WORKER-C Primary Care Provider Active Start: February 07, 2025 End: February 07, 2025 Dr. Brando Chacon MD Attending Provider Active S tart: February 07, 2025 End: February 07, 2025 Dr. Brando Chacon MD Referring Provider Active S tart: February 07, 2025 End: February 07, 2025 Team Status: Inactive Member Role Status Dates Lester Mckay COMPUTER RECYCLING WORKER-C Primary Care Provider Active Start: February 10, 2025 End: February 10, 2025 Lester Mckay , COMPUTER RECYCLING WORKER-C Referring Provider Active St art: February 10, 2025 End: February 10, 2025 Dr. Brando Chacon MD Attending Provider Active S tart: February 10, 2025 End: February 10, 2025 Team Status: Inactive Member Role Status Dates Lester Mckay , COMPUTER RECYCLING WORKER-C Primary Care Provider Active Start: March 10, 2025 End: March 10, 2025 Lester Mckay COMPUTER RECYCLING WORKER-C Referring Provider Active St art: March 10, 2025 End: March 10, 2025 Elly Leslie COMPUTER RECYCLING WORKER-C Attending Provider Active Start: March 10, 2025 End: March 10, 2025 Team Status: Inactive Member Role Status Dates Lester Mckay COMPUTER RECYCLING WORKER-C Primary Care Provider Active Start: December 22, 2024 End: December 22, 2024 Dr. Darrel Lacy MD Attending Provider Active Start: December 22, 2024 End: December 22, 2024 Dr. Darrel Lacy MD Referring Provider Active Start: December 22, 2024 End: December 22, 2024 Team Status: Active Member Role/Relationship Status Dates Lester Mckay COMPUTER RECYCLING WORKER-C Primary Care Provider Active Team Status: Inactive Member Role/Relationship Status Dates Lester Mckay COMPUTER RECYCLING WORKER-C Primary Care Provider Active Start: January 19, 2025 End: January 19, 2025 Lester Mckay COMPUTER RECYCLING WORKER-C Referring Provider Active St art: January 19, 2025 End: January 19, 2025 Dr. Darrel Lacy MD Attending Provider Active Start: January 19, 2025 End: January 19, 2025 Team Status: Inactive Member Role/Relationship Status Dates Lester Mckay COMPUTER RECYCLING WORKER-C Primary Care Provider Active Start: January 27, 2025 End: January 27, 2025 Lester Mckay COMPUTER RECYCLING WORKER-C Referring Provider Active St art: January 27, 2025 End: January 27, 2025 Dr. Brando Chacon MD Attending Provider Active S tart: January 27, 2025 End: January 27, 2025 Team Status: Active Member Role/Relationship Status Dates Dr. Mike Shafer MD Primary Care Provider Active Start: January 27, 2025 Dr. Mike Shafer MD Family Provider Active Sta rt: January 27, 2025 Dr. Mike Shafer MD Referring Provider Active Start: January 27, 2025 Dr. Brando Chacon MD Attending Provider Active S tart: January 27, 2025 Team Status: Inactive Member Role/Relationship Status Dates Lester Mckay COMPUTER RECYCLING WORKER-C Primary Care Provider Active Start: January 28, 2025 End: January 28, 2025 Dr. Brando Chacon MD Attending Provider Active S tart: January 28, 2025 End: January 28, 2025 Dr. Brando Chacon MD Referring Provider Active S tart: January 28, 2025 End: January 28, 2025 Team Status: Inactive Member Role/Relationship Status Dates Lester Mckay COMPUTER RECYCLING WORKER-C Primary Care Provider Active Start: February 07, 2025 End: February 07, 2025 Dr. Brando Chacon MD Attending Provider Active S tart: February 07, 2025 End: February 07, 2025 Dr. Brando Chacon MD Referring Provider Active S tart: February 07, 2025 End: February 07, 2025 Team Status: Inactive Member Role/Relationship Status Dates Lester Mckay COMPUTER RECYCLING WORKER-C Primary Care Provider Active Start: February 10, 2025 End: February 10, 2025 Lester Mckay COMPUTER RECYCLING WORKER-C Referring Provider Active St art: February 10, 2025 End: February 10, 2025 Dr. Brando Chacon MD Attending Provider Active S tart: February 10, 2025 End: February 10, 2025 Team Status: Inactive Member Role/Relationship Status Dates Lester Maria Isabel , COMPUTER RECYCLING WORKER-C Primary Care Provider Active Start: March 10, 2025 End: March 10, 2025 Lester Mckay , COMPUTER RECYCLING WORKER-C Referring Provider Active St art: March 10, 2025 End: March 10, 2025 Elly Leslie COMPUTER RECYCLING WORKER-C Attending Provider Active Start: March 10, 2025 End: March 10, 2025 Team Status: Inactive Member Role/Relationship Status Dates Lester Maria Isabel , COMPUTER RECYCLING WORKER-C Primary Care Provider Active Start: April 05, 2025 Dr. Chelsea Gilman MD Attending Provider Active Start: April 05, 2025 Team Status: Inactive Member Role/Relationship Status Dates Lester Maria Isabel , COMPUTER RECYCLING WORKER-C Primary Care Provider Active Start: May 13, 2025 End: May 13, 2025 Lester Maria Isabel , COMPUTER RECYCLING WORKER-C Referring Provider Active St art: May 13, 2025 End: May 13, 2025 Dr. Chelsea Gilman MD Attending Provider Active Start: May 13, 2025 End: May 13, 2025 Team Status: Inactive Member Role/Relationship Status Dates Lester Maria Isabel , COMPUTER RECYCLING WORKER-C Primary Care Provider Active Start: May 16, 2025 End: May 16, 2025 Lester Maria Isabel , COMPUTER RECYCLING WORKER-C Referring Provider Active St art: May 16, 2025 End: May 16, 2025 Beverly Emerson NP, COMPUTER RECYCLING WORKER-C Attending Provider Active Start: May 16, 2025 End: May 16, 2025 Team Status: Inactive Member Role/Relationship Status Dates Lester Maria Isabel , COMPUTER RECYCLING WORKER-C Primary Care Provider Active Start: February 07, 2025 End: February 07, 2025 Dr. Brando Chacon MD Attending Provider Active S tart: February 07, 2025 End: February 07, 2025 Dr. Brando Chacon MD Referring Provider Active S tart: February 07, 2025 End: February 07, 2025 Team Status: Inactive Member Role/Relationship Status Dates Lester Maria Isabel , COMPUTER [employer]ING WORKER-C Primary Care Provider Active Start: February 10, 2025 End: February 10, 2025 Lester Maria Isabel , COMPUTER RECYCLING WORKER-C Referring Provider Active St art: February 10, 2025 End: February 10, 2025 Dr. Brando Chacon MD Attending Provider Active S tart: February 10, 2025 End: February 10, 2025 Team Status: Inactive Member Role/Relationship Status Dates Lesterjazzmine Mckay , COMPUTER [employer]YCLING WORKER-C Primary Care Provider Active Start: March 10, 2025 End: March 10, 2025 Lester Mckay , COMPUTER RECYCLING WORKER-C Referring Provider Active St art: March 10, 2025 End: March 10, 2025 Elly Leslie COMPUTER RECYCLING WORKER-C Attending Provider Active Start: March 10, 2025 End: March 10, 2025 Team Status: Inactive Member Role/Relationship Status Dates Lesterjazzmine Mckay , COMPUTER [employer]YCLING WORKER-C Primary Care Provider Active Start: April 05, 2025 Dr. Chelsea Gilman MD Attending Provider Active Start: April 05, 2025 Team Status: Inactive Member Role/Relationship Status Dates Lester Maria Isabel , COMPUTER [employer]ING WORKER-C Primary Care Provider Active Start: May 13, 2025 End: May 13, 2025 Lesterjazzmine Mckay , COMPUTER RECYCLING WORKER-C Referring Provider Active St art: May 13, 2025 End: May 13, 2025 Dr. Chelsea Gilman MD Attending Provider Active Start: May 13, 2025 End: May 13, 2025 Team Status: Inactive Member Role/Relationship Status Dates Lester Maria Isabel , COMPUTER [employer]ING WORKER-C Primary Care Provider Active Start: May 16, 2025 End: May 16, 2025 Lester Maria Isabel , COMPUTER RECYCLING WORKER-C Referring Provider Active St art: May 16, 2025 End: May 16, 2025 Beverly Emerson NP, COMPUTER RECYCLING WORKER-C Attending Provider Active Start: May 16, 2025 End: May 16, 2025 Team Status: Inactive Member Role/Relationship Status Dates Lester Maria Isabel , COMPUTER [employer]YCLING WORKER-C Primary Care Provider Active Start: May 30, 2025 End: May 30, 2025 Lester Maria Isabel , COMPUTER RECYCLING WORKER-C Referring Provider Active St art: May 30, 2025 End: May 30, 2025 Dr. Brando Chacon MD Attending Provider Active S tart: May 30, 2025 End: May 30, 2025 Team Status: Active Member Role/Relationship Status Dates Dr. Mike Shafer MD Primary Care Provider Active Start: May 30, 2025 Dr. Mike Shafer MD Family Provider Active Sta rt: May 30, 2025 Dr. Mike Shafer MD Referring Provider Active Start: May 30, 2025 Dr. Brando Chacon MD Attending Provider Active S tart: May 30, 2025 Team Status: Active Member Role/Relationship Status Dates Lesterjazzmine Mckay , COMPUTER [employer]ING WORKER-C Primary care physician Active Team Status: Inactive Member Role/Relationship Status Dates Lesterjazzmine Mckay , COMPUTER [employer]YCLING WORKER-C Primary care physician Active Start: March 10, 2025 End: March 10, 2025 Lester Mckay , COMPUTER RECYCLING WORKER-C Referring Provider Active St art: March 10, 2025 End: March 10, 2025 Elly Leslie COMPUTER [employer]YCLING WORKER-C Attending physician Active Start: March 10, 2025 End: March 10, 2025 Team Status: Inactive Member Role/Relationship Status Dates Lester Mckay , COMPUTER [employer]ING WORKER-C Primary care physician Active Start: April 05, 2025 Dr. Chelsea Gilman MD Attending physician Active Start: April 05, 2025 Team Status: Inactive Member Role/Relationship Status Dates Lesterjazzmine Mckay , COMPUTER [employer]YCLING WORKER-C Primary care physician Active Start: May 13, 2025 End: May 13, 2025 Lester Maria Isabel , COMPUTER RECYCLING WORKER-C Referring Provider Active St art: May 13, 2025 End: May 13, 2025 Dr. Chelsea Gilman MD Attending physician Active Start: May 13, 2025 End: May 13, 2025 Team Status: Inactive Member Role/Relationship Status Dates Lesterjazzmine Mckay , COMPUTER [employer]ING WORKER-C Primary care physician Active Start: May 16, 2025 End: May 16, 2025 Lester Maria Isabel , COMPUTER RECYCLING WORKER-C Referring Provider Active St art: May 16, 2025 End: May 16, 2025 Beverly Emerson NP, COMPUTER [employer]YCLING WORKER-C Attending physician Active Start: May 16, 2025 End: May 16, 2025 Team Status: Inactive Member Role/Relationship Status Dates Lester Maria Isabel , COMPUTER [employer]ING WORKER-C Primary care physician Active Start: May 30, 2025 End: May 30, 2025 Lester Maria Isabel , COMPUTER RECYCLING WORKER-C Referring Provider Active St art: May 30, 2025 End: May 30, 2025 Dr. Brando Chacon MD Attending physician Active Start: May 30, 2025 End: May 30, 2025 Team Status: Active Member Role/Relationship Status Dates Dr. Mike Shafer MD Primary care physician Active Start: May 30, 2025 Dr. Mike Shafer MD Referring Provider Active Start: May 30, 2025 Dr. Brando Chacon MD Attending physician Active Start: May 30, 2025 Team Status: Inactive Member Role/Relationship Status Dates LANA Ramirez Primary care physician Active Start: June 08, 2025 End: June 08, 2025 Dr. Brando Chacon MD Attending physician Active Start: June 08, 2025 End: June 08, 2025 Dr. Brando Chacon MD Referring Provider Active S tart: June 08, 2025 End: June 08, 2025 Team Status: Inactive Member Role/Relationship Status Dates LANA Ramirez Primary care physician Active Start: June 23, 2025 End: June 23, 2025 LANA Ramirez Referring Provider Active St art: June 23, 2025 End: June 23, 2025 Dr. Brando Chacon MD Attending physician Active Start: June 23, 2025 End: June 23, 2025 INFORMATION SOURCE (unrecogn ized section and content) DATE CREATED AUTHOR 02/12/2024 [facility] ([place]) DATE CREATED AUTHOR AUTHOR'S ORGANIZ ATION 02/09/2025 [facility] DATE CREATED AUTHOR AUTHOR'S ORGANIZ ATION 07/09/2025 [facility] DATE CREATED AUTHOR AUTHOR'S ORGANIZ ATION 08/17/2025 [facility] REASON FOR VISIT (unrecogniz ed section and content) post bilateral breast recons truction with tissue automotive professional and alloderm to right breast latissimus flap to left breast on 03/22/2025, Postop - subsequent visit FOR RECORDS PERTAINING TO PATIENTS WHO ARE [...] BE BASED ON THE PRIMARY CLINICAL RECORDS. [employer] provides no warranty or guarantee of the accuracy or completeness of information in this document.
[2025-08-30 10:26] LABS: AST(SGOT) 38 U/L (<=31); Alanine Aminotransfer ALT/SGPT 52 U/L (<=34); Albumin, Serum 4.4 g/dL (3.4-4.8); Alkaline Phosphatase 109 U/L (35-104); Anion Gap 11 (5-15); BUN 20 mg/dL (4-19); BUN/Creat Ratio 21.6 RATIO (10-20); Calcium,Total 9.1 mg/dL (7.6-11.0); Carbon Dioxide 24.6 mmol/L (21.0-32.0); Chloride 102 mmol/L (98-108); Globulin 2.9 g/dL (2.2-4.2); Glucose 136 mg/dL (70-99); LDH 221 U/L (84-246); Potassium 4.8 mmol/L (3.3-5.1)
[2025-08-30 10:28] LABS: Creatinine, Urine (random) 241.00 mg/dL (28.00-217.00); Microalbumin,Random Urine 69.6 mg/L (<20 mg/L)
[2025-08-30 10:45] LABS: Cholesterol 168 mg/dL (<=200); Low Density Lipoprotein Calc. 87 mg/dL; Triglycerides 152 mg/dL; Very Low Density Lipoprotein 30 mg/dL (5-40); Vitamin D,25 Hydroxy 30.2 ng/mL (30-100); cholesterol:hdl ratio screen 3.07
== END | disposition home or self-care (01) ==
LOC: MTLAB 08:11
PROVIDERS: Nurse Practitioner Family; PCP Nurse Practitioner Family; Referring Provider Internal Medicine Medical Oncology; Visit Provider Internal Medicine Medical Oncology
DX: C50.812 Malignant neoplasm of overlapping sites of left female breast (principal); E11.65 Type 2 diabetes mellitus with hyperglycemia; Z17.0 Estrogen receptor positive status [ER+]; E55.9 Vitamin D deficiency, unspecified
CPT/HCPCS: 36415; 80053; 80061; 82043; 82306; 82570; 83615; 84443